=== PATIENT | female | born 1950 | race Hispanic/Latino ===

== ENCOUNTER 2017-01-30 10:09 | Inpatient (IN) | payer MEDICARE, OTHER ==
[2017-01-30 10:14] VITALS: BMI 38.0
--- NOTE | 2017-01-30 10:45 | ED PDOC ---
Arrival/HPI - History of Present Illness Symptom Course: Unchanged Activities at Onset: Light <Tobi Severino - Last Filed: 01/30/17 16:06> - General Historian: Patient - History of Present Illness Time/Duration: 24 hours Context: Home <Charlie Rinaldi - Last Filed: 01/30/17 16:46> - General Chief Complaint: Abnormal Labs - History of Present Illness Narrative History of Present Illness (Text): 01/30/17 10:42 66yo F PMH AFib on Coumadin, DM2, Hypertension, Hypercholesterolemia, PVD and hx of cellulitis presents to emergency department after PMD visit when she was told that her INR level was abnormal. Pt states that she was told her level was 8. pt states she smoked last week for the first time in awhile, and has been feeling short of breath since. Pt denies recent Coumadin dosage changes, bleeding, hematuria, hematochezia, chest pain, fevers, n/v/d. (Charlie Rinaldi) Past Medical History - Provider Review Nursing Documentation Reviewed: Yes - Infectious Disease Hx of Infectious Diseases: None - Tetanus Immunization Tetanus Immunization: Unknown - Cardiac Hx Cardiac Disorders: Yes Hx Atrial Fibrillation: Yes Hx Hyperlipemia: Yes Hx Hypertension: Yes Other/Comment: stents placed in heart, 2 - Pulmonary Hx Respiratory Disorders: No - Neurological HX Cerebrovascular Accident: Yes ((Residual L-sided weakness)) - HEENT Hx HEENT Disorder: No - Renal Hx Renal Disorder: No - Endocrine/Metabolic Hx Endocrine Disorders: Yes Hx Diabetes Mellitus Type 2: Yes - Hematological/Oncological Hx Blood Disorders: Yes Hx Anemia: Yes Hx Blood Transfusions: No - Integumentary Hx Dermatological Disorder: No - Musculoskeletal/Rheumatological Hx Arthritis: Yes - Gastrointestinal Hx Gastrointestinal Disorders: Yes Other/Comment: Increased Gas problems in abd since Stroke last year - Genitourinary/Gynecological Hx Genitourinary Disorders: No - Psychiatric Hx Psychophysiologic Disorder: No Hx Substance Use: No - Surgical History Hx Cardiac Catheterization: Yes Hx Coronary Stent: Yes (x2) Other/Comment: right leg r/t cellulitis 2015 - Anesthesia Hx Anesthesia: Yes Hx Anesthesia Reactions: No - Suicidal Assessment Feels Threatened In Home Enviroment: No <Charlie Rinaldi - Last Filed: 01/30/17 16:46> Family/Social History - Physician Review Nursing Documentation Reviewed: Yes Family/Social History: No Known Family HX Smoking Status: Former Smoker Hx Alcohol Use: No Hx Substance Use: No <Charlie Rinaldi - Last Filed: 01/30/17 16:46> Allergies/Home Meds <LeandrasilviaTobi - Last Filed: 01/30/17 16:06> <Charlie Rinaldi - Last Filed: 01/30/17 16:46> Allergies/Adverse Reactions: Allergies codeine Allergy (Verified 01/30/17 14:31) SHORTNESS OF BREATH Penicillins Allergy (Verified 01/30/17 14:31) ANAPHYLAXIS clopidogrel Adverse Reaction (Verified 01/30/17 14:31) SHORTNESS OF BREATH peaches Allergy (Severe, Uncoded 01/30/17 14:31) REDNESS nectarines Allergy (Mild, Uncoded 01/30/17 14:31) SHORTNESS OF BREATH Home Medications: Home Meds Medication Instructions Recorded Confirmed Atorvastatin [Lipitor] 40 mg PO QOTHERDAY 06/15/15 01/30/17 GlipiZIDE [Glucotrol] 10 mg PO DAILY 06/15/15 01/30/17 Valsartan [Diovan] 160 mg PO DAILY 06/15/15 01/30/17 Warfarin [Coumadin] 7.5 mg PO DAILY 06/15/15 01/30/17 amLODIPine [Norvasc] 10 mg PO DAILY 06/15/15 01/30/17 Cholecalciferol [Vitamin D 1000 IU] 5,000 iu PO QWK 01/30/17 01/30/17 Insulin Aspart Prot/Insuln Asp 8 units SC TID 01/30/17 01/30/17 [Novolog Mix 70-30 Vial] Meclizine [Meclizine*] 25 mg PO TID 01/30/17 01/30/17 Metoprolol Tartrate [Lopressor] 50 mg PO TID 01/30/17 01/30/17 cloNIDine [Catapres] 0.3 mg PO TID 01/30/17 01/30/17 Review of Systems - Physician Review All systems were reviewed & negative as marked: Yes - Review of Systems Constitutional: absent: Fatigue Respiratory: absent: SOB, Cough Cardiovascular: absent: Chest Pain, Palpitations Gastrointestinal: absent: Hematochezia, Hematemesis Genitourinary Female: absent: Hematuria <Charlie Rinaldi - Last Filed: 01/30/17 16:46> Physical Exam Temperature: Afebrile Appearance: Positive for: Well-Appearing Pain Distress: None Mental Status: Positive for: Alert and Oriented X 3 - Systems Exam Head: Present: Atraumatic, Normocephalic Pupils: Present: PERRL Extroacular Muscles: Present: EOMI Mouth: Present: Moist Mucous Membranes Neck: Present: Normal Range of Motion Respiratory/Chest: Present: Clear to Auscultation, Good Air Exchange. No: Respiratory Distress, Accessory Muscle Use, Wheezes Cardiovascular: Present: Regular Rate and Rhythm, Normal S1, S2 Abdomen: Present: Normal Bowel Sounds. No: Tenderness, Distention Back: Present: Normal Inspection. No: CVA Tenderness Upper Extremity: Present: Normal Inspection Lower Extremity: Present: Normal Inspection, Swelling (chronic, pt wearing compression stockings). No: Edema, CALF TENDERNESS Neurological: Present: CN II-XII Intact, Speech Normal Skin: Present: Warm, Dry Psychiatric: Present: Alert, Oriented x 3 <Charlie Rinaldi - Last Filed: 01/30/17 16:46> Vital Signs Temp Pulse Pulse Resp BP Pulse Ox 01/30/17 16:21 60 16 207/76 H 97 01/30/17 15:31 196/64 H 01/30/17 15:25 60 16 196/64 H 96 01/30/17 15:00 98.1 F 60 68 16 223/72 H 97 01/30/17 12:30 60 16 177/63 H 97 01/30/17 10: 98.1 F 62 17 168/74 H 96 Medical Decision Making <Tobi Severino - Last Filed: 01/30/17 16:06> Reassessment Condition: Re-examined, Unchanged - Lab Interpretations I have reviewed the lab results: Yes <Charlie Rinaldi - Last Filed: 01/30/17 16:46> ED Course and Treatment: 01/30/17 13:48 Patient seen and examined with resident. Came up with treatment and disposition plan with resident. (Tobi Severino) 01/30/17 10:55 Impression: 66yo F presenting for INR check Plan: - Reassess and disposition - Labs - INR - CXR Progress Notes: 01/30/17 11:13 Dr. Hall was contacted who stated that the patient's INR was 9, and recommended we give vitamin K. On Coumadin for Afib and hx CVA. Awaiting results of INR, and will start therapy. 01/30/17 11:51 INR 7.7; vitamin K 5mg ordered Chest PA and lateral Creator : Lul Palemr MD FINDINGS: LUNGS: Minimal infiltrate at left lung base PLEURA: Small bilateral pleural effusions. CARDIOVASCULAR: The heart is normal in size. Mild vascular congestion OSSEOUS STRUCTURES: No significant abnormalities. VISUALIZED UPPER ABDOMEN: Normal. OTHER FINDINGS: None. IMPRESSION: Minimal infiltrate at left lung base. Small bilateral pleural effusions Nitro and Lisinopril given 01/30/17 13:28 Dr. Padilla was contacted regarding admitting pt. Pt later refused admission to Dr. Padilla. Attempt to reach Dr. Laws was made; will call back 01/30/17 13:44 Dr. Laws was contacted and accepts patient onto her service for w/u of pulm infiltrate/edema and supra-therapeutic INR (Charlie Rinaldi) - Lab Interpretations Lab Results: 01/30/17 10:55 01/30/17 10:55 Lab Results 01/30/17 10:55: Sodium 144, Potassium 4.6, Chloride 114 H, Carbon Dioxide 17 L, Anion Gap 18, BUN 26 H, Creatinine 1.1, Est GFR ( Amer) > 60, Est GFR ( Non-Af Amer) 50, Random Glucose 169 H, Calcium 9.0, Total Bilirubin 0.7, AST 24 , ALT 23, Alkaline Phosphatase 89, NT-Pro-B Natriuret Pep 3960 H, Total Protein 6.4, Albumin 3.4, Globulin 3.0, Albumin/Globulin Ratio 1.1 01/30/17 10:55: WBC 8.4 D, RBC 3.30 L, Hgb 8.5 L, Hct 26.3 L, MCV 79.7 L, MCH 25.8, MCHC 32.3, RDW 15.9 H, Plt Count 231, MPV 8.5, Gran % 78.3 H, Lymph % ( Auto) 10.6 L, [place] % (Auto) 6.1 H, Eos % (Auto) 3.6, Baso % (Auto) 1.4, Gran # 6.58 H, Lymph # 0.9 L, [place] # 0.5, Eos # 0.3, Baso # 0.12 01/30/17 10:55: PT 83.5 H*, INR 7.73 H* - RAD Interpretation Radiology Orders: 01/30/17 10:52 CHEST TWO VIEWS (PA/LAT) [RAD] Stat - Medication Orders Current Medication Orders: Discontinued Medications Clonidine HCl (Catapres) 0.3 mg PO STAT STA Stop: 01/30/17 16:25 Furosemide (Lasix) 40 mg IVP STAT STA Stop: 01/30/17 13:46 Last Admin: 01/30/17 15:31 Dose: 40 mg MAR Blood Pressure Document 01/30/17 15:31 (Rec: 01/30/17 15:31 [id number]) Blood Pressure Blood Pressure (100/60-150/90) 196/64 IVP Administration Document 01/30/17 15:31 (Rec: 01/30/17 15:31 [id number]) Charges for Administration # of IVP Administrations 1 Ceftriaxone Sodium (Rocephin 1 Gram Ivpb) 1 gm in 100 mls @ 200 mls/hr IV STAT STA PRN Reason: Protocol Stop: 01/30/17 14:10 Last Admin: 01/30/17 15:30 Dose: 200 mls/hr eMAR Start Stop Document 01/30/17 15:30 (Rec: 01/30/17 15:31 [id number]) Intravenous Solution Start Date 01/30/17 Start Time 15:31 Azithromycin (Zithromax 500mg In Ns) 500 mg in 250 mls @ 166.667 mls/hr IV STAT STA PRN Reason: Protocol Stop: 01/30/17 15:10 Lisinopril (Zestril) 5 mg PO STAT STA Stop: 01/30/17 12:09 Last Admin: 01/30/17 12:40 Dose: 5 mg Nitroglycerin (Nitrostat Sl Tab) 0.3 mg SL Q5M PEYMAN Stop: 01/30/17 12:26 Last Admin: 01/30/17 12:40 Dose: Not Given Non-Admin Reason: Patient Refused Nitroglycerin (Nitro-Bid 2% Oint) 1 ea TOP STAT STA Stop: 01/30/17 14:54 Last Admin: 01/30/17 15:31 Dose: 1 ea Phytonadione (Vitamin K Tab) 5 mg PO ONCE ONE Stop: 01/30/17 11:47 Last Admin: 01/30/17 12:08 Dose: 5 mg Pneumococcal Polyvalent Vaccine (Pneumovax 23 Vaccine) 0.5 ml IM .ONCE ONE Stop: 01/30/17 15:26 - Scribe Statement The provider has reviewed the documentation as recorded by the Scribe <Tobi Severino - Last Filed: 01/30/17 16:06> <Charlie Rinaldi - Last Filed: 01/30/17 16:46> - Scribe Statement Eileen Isbell Provider Scribe Attestation: All medical record entries made by the Scribe were at my direction and personally dictated by me. I have reviewed the chart and agree that the record accurately reflects my personal performance of the history, physical exam, medical decision making, and the department course for this patient. I have also personally directed, reviewed, and agree with the discharge instructions and disposition. (Tobi Severino) Disposition/Present on Arrival <Tobi Severino - Last Filed: 01/30/17 16:06> - Present on Arrival Any Indicators Present on Arrival: No History of DVT/PE: Yes History of Uncontrolled Diabetes: Yes Urinary Catheter: No History of Decub. Ulcer: No History Surgical Site Infection Following: None - Disposition Have Diagnosis and Disposition been Completed?: Yes Disposition Time: 13:34 Patient Plan: Admission <Charlie Rinaldi - Last Filed: 01/30/17 16:46> - Disposition Diagnosis: Elevated INR, Pulmonary edema, Pneumonia Disposition: HOSPITALIZED Patient Problems: Current Active Problems Problem Status Onset Elevated INR Acute Pneumonia Acute Pulmonary edema Acute Condition: FAIR
[2017-01-30 11:08] LABS: BASO # 0.12 K/mm3 (0.0-2.0); BASO % 1.4 % (0.0-3.0); EOS # 0.3 (0.0-0.7); EOS % 3.6 % (1.5-5.0); GRAN # 6.58 (1.4-6.5); GRAN % 78.3 % (50.0-68.0); HEMATOCRIT 26.3 % (36.0-48.0); LYMPH # 0.9 (1.2-3.4); LYMPH % 10.6 % (22.0-35.0); MEAN CELL VOLUME 79.7 fl (80.0-105.0); MEAN CORPUSCULAR HEMOGLOBIN 25.8 pg (25.0-35.0); MEAN CORPUSCULAR HGB CONC 32.3 g/dl (31.0-37.0); MEAN PLATELET VOLUME 8.5 fl (7.0-11.0); MONO # 0.5 (0.1-0.6); MONO % 6.1 % (1.0-6.0); RED CELL DISTRIBUTION WIDTH 15.9 % (11.5-14.5); WHITE BLOOD COUNT 8.4 10^3/ul (4.5-11.0)
[2017-01-30 11:18] LABS: ALB/GLOB RATIO 1.1 (1.1-1.8); ALKALINE PHOSPHATASE 89 U/L (38-126); ALT/SGPT 23 U/L (7-56); AST/SGOT 24 U/L (14-36); BILIRUBIN,TOTAL 0.7 mg/dL (0.2-1.3); BLOOD UREA NITROGEN 26 mg/dL (7-21); CARBON DIOXIDE 17 mmol/L (21-33); CHLORIDE 114 mmol/L (98-107); GFR AFRICAN-AMERICAN > 60; GLUCOSE,RANDOM 169 mg/dL (70-110); POTASSIUM 4.6 mmol/L (3.6-5.0); SODIUM 144 mmol/L (132-148); TOTAL PROTEIN 6.4 g/dL (5.8-8.3)
[2017-01-30 11:32] LABS: INR 7.73 (0.93-1.08)
--- NOTE | 2017-01-30 12:49 | RAD ---
HISTORY: sob COMPARISON: 06/15/2015 TECHNIQUE: Chest PA and lateral FINDINGS: LUNGS: Minimal infiltrate at left lung base PLEURA: Small bilateral pleural effusions. CARDIOVASCULAR: The heart is normal in size. Mild vascular congestion OSSEOUS STRUCTURES: No significant abnormalities. VISUALIZED UPPER ABDOMEN: Normal. OTHER FINDINGS: None. IMPRESSION: Minimal infiltrate at left lung base. Small bilateral pleural effusions
[2017-01-30] MEDS ORDERED: Azithromycin 500MG/NS 250ml 500 MG/250 ML BAG IV STA (13:41)
[2017-01-30] MEDS ORDERED: cefTRIAXone 1 gm 1 GM/100 ML BAG IV STA (13:41)
[2017-01-30] MEDS ORDERED: Nitroglycerin 2% Ointment Foilpak UD TOP STA (14:53)
[2017-01-30] MEDS ORDERED: Pneumococcal 23-Valent Vaccine IM ONE (15:25)
[2017-01-30] MEDS: Insulin Lispro (humaLOG) MEDIUM Coverage SC SCH (21:44)
--- NOTE | 2017-01-30 22:56 | HP ---
HISTORY OF PRESENT ILLNESS: The patient is a 66-year-old, who was referred by our primary care doctor because of her abnormal LFTs. Her INR was found to be 9, so she was referred for further evaluation. The patient states that she is having increasing shortness of breath for the last few days. Denies any bleeding. No hematuria, no rectal bleeding. No chest pain. No cough and no congestion. No fever and no chills. No abdominal pain. PAST MEDICAL HISTORY: Significant for: 1. Hypertension. 2. Insulin dependent diabetes. 3. Chronic atria fibrillation, on Coumadin. 4. History of recurrent UTI. 5. History of gout. 6. History of diabetic neuropathy. 7. History of chronic venous stasis. The patient was admitted almost a year and a half ago for bilateral leg cellulitis. 8. 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 9. History of left popliteal DVT. PAST SURGICAL HISTORY: Significant for left knee surgery and left shoulder surgery. HOME MEDICATIONS: She is on clonidine 0.3 three times a day, Norvasc 10 mg daily, Lopressor 50 mg twice a day, Imdur 30 mg daily, Coumadin 7.5 mg daily, metformin 1000 twice a day, Humulin 70/30, 5 units three times a day, Demadex 10 mg daily, Lipitor 40 mg daily, Meclizine 25 three times a day, and Valsartan 160 mg daily. ALLERGIES: SHE IS ALLERGIC TO CODEINE, PENICILLIN, PLAVIX, PEACHES AND NECTARINES. SOCIAL HISTORY: Heavy smoker in the past. Socially drinks. REVIEW OF SYSTEMS: Significant for mild shortness of breath. Otherwise, there is no history of dizziness. No runny stuffy nose. No chest pain, but does have shortness of breath. No cough, no congestion, no hemoptysis, no hematemesis. PHYSICAL EXAMINATION: GENERAL: She is awake and alert and communicative. VITAL SIGNS: She is afebrile, pulse 62, respiration 16, and blood pressure 170/65. LUNGS: Bilateral fair airflow, decrease at bases. Few soft crackle. HEART: S1 and S2 audible, irregular, rate controlled. ABDOMEN: Soft, obese, and nontender. No rebound and no guarding. NEUROLOGIC: The patient is awake and alert. Communicative. LABORATORY DATA: WBC is 8.4, hemoglobin 8.5, hematocrit 26.3, platelet 231. PT 83.5, INR 7.73. Chemistry: Sodium 144, potassium 4.6, chloride 114, CO2 217, BUN 26, creatinine 1.1, blood sugar of 169, and BNP is 3960. The patient has x-ray of chest done that shows minimal infiltrate in the left lung base. Small bilateral pleural effusion. ASSESSMENT: 1. Congestive heart failure exacerbation acute and chronic, systolic. 2. Left lower lobe infiltrate. 3. Supratherapeutic PT/INR. 4. Chronic atrial fibrillation. 5. Insulin dependent diabetes. 6. Hypertension. 7. Hyperlipidemia. 8. Coronary artery disease. PLAN: We will start the patient on diuretics. Monitor blood sugar. She was given vitamin K 5 mg in the ER. We will put her on fall precaution. Monitor her blood sugar and she had echocardiogram done back in 2014 that showed normal left ventricle and normal wall thickness. Left atrium is fairly dilated. Mitral regurgitation is eccentrically directed and there is moderate pulmonary hypertension. We will follow up her NM/INR and electrolyte in a.m. Jason Laws MD
[2017-01-31 06:22] LABS: BASO # 0.04 K/mm3 (0.0-2.0); BASO % 0.6 % (0.0-3.0); EOS # 0.3 (0.0-0.7); EOS % 4.1 % (1.5-5.0); GRAN # 4.84 (1.4-6.5); GRAN % 73.6 % (50.0-68.0); HEMATOCRIT 27.7 % (36.0-48.0); LYMPH # 0.9 (1.2-3.4); LYMPH % 13.8 % (22.0-35.0); MEAN CELL VOLUME 79.6 fl (80.0-105.0); MEAN CORPUSCULAR HEMOGLOBIN 25.3 pg (25.0-35.0); MEAN CORPUSCULAR HGB CONC 31.8 g/dl (31.0-37.0); MEAN PLATELET VOLUME 8.6 fl (7.0-11.0); MONO # 0.5 (0.1-0.6); MONO % 7.9 % (1.0-6.0); RED CELL DISTRIBUTION WIDTH 16.1 % (11.5-14.5); WHITE BLOOD COUNT 6.6 10^3/ul (4.5-11.0)
[2017-01-31 06:31] LABS: INR 2.79 (0.93-1.08)
[2017-01-31 06:47] VITALS: O2SAT 97
[2017-01-31 06:57] LABS: ALB/GLOB RATIO 1.1 (1.1-1.8); ALKALINE PHOSPHATASE 101 U/L (38-126); ALT/SGPT 23 U/L (7-56); AST/SGOT 24 U/L (14-36); BILIRUBIN,TOTAL 0.9 mg/dL (0.2-1.3); BLOOD UREA NITROGEN 21 mg/dL (7-21); CALCIUM 9.1 mg/dL (8.4-10.5); CARBON DIOXIDE 20 mmol/L (21-33); CHLORIDE 113 mmol/L (98-107); CHOLESTEROL 136 mg/dL (130-200); GFR AFRICAN-AMERICAN > 60; GLUCOSE,RANDOM 161 mg/dL (70-110); SODIUM 145 mmol/L (132-148); TOTAL PROTEIN 6.7 g/dL (5.8-8.3)
[2017-01-31 07:09] LABS: TROPONIN I 0.02 ng/mL
[2017-01-31 07:29] LABS: FREE T4 1.66 ng/dL (0.78-2.19)
[2017-01-31 07:43] LABS: THYROID STIMULATING HORMONE 3.63 mIU/mL (0.46-4.68)
[2017-01-31] MEDS ORDERED: Azithromycin 500MG/NS 250ml 500 MG/250 ML BAG IVPB SCH (10:00)
[2017-01-31] MEDS ORDERED: cefTRIAXone 1 gm 1 GM/100 ML BAG IVPB SCH (10:00)
[2017-01-31] MEDS: Insulin Lispro (humaLOG) MEDIUM Coverage SC SCH ×3 (10:09→18:07)
--- NOTE | 2017-01-31 17:17 | DS ---
SUBJECTIVE: The patient is 66-year-old, seen and examined. She states she feels lot better, shortness of breath has almost gone. No nausea or vomiting. No diarrhea. PHYSICAL EXAMINATION: VITAL SIGNS: She is afebrile. Pulse 77, respirations 18 and blood pressure 174/59. LUNGS: Bilateral fair airflow. No rhonchi or crackle. HEART: S1 and S2 audible. ABDOMEN: Soft, obese, and nontender. No rebound. No guarding. NEUROLOGIC: The patient is awake and alert, communicate and moves all extremities. SKIN: Bilateral chronic stasis dermatitis with pigmentation. No erythema. LABORATORY EXAM: WBC is 6.6, hemoglobin 8.8, hematocrit 27.7 and platelet 223. PT 30.1. INR 2.79. Chemistry: Sodium 145, potassium 4.0, chloride 113, CO2 of 20, BUN 31, creatinine 1.0, and blood sugar of 189. ASSESSMENT: 1. Congestive heart failure, seems to be improved. 2. Chronic atrial fibrillation. 3. Morbid obesity. 4. History of gout. 5. History of diabetic neuropathy. 6. Non-insulin dependent diabetes. PLAN: Awaiting Dr. Dowell's input. The patient seems to be clinically stable. She can be discharged home today later on after seen by quality control. At this point, the patient is afebrile, no white count. CT scan of the chest is pending to further appreciate if she has infiltrate or not. If her CT scan is negative and cleared by cardiology, she will be discharged home later on today. Jason Laws MD
[2017-01-31 19:09] VITALS: BP 163/56; PULSE 54; RESP 19; TEMP 98.6
--- NOTE | 2017-01-31 23:08 | CARD ---
APPROVED REPORT EKG Measurement Heart [id number] <Conclusion> Normal sinus rhythm Right axis deviation Possible Anterior infarct, age undetermined Abnormal ECG
== END 2017-01-31 19:14 | disposition home or self-care (01) | DRG 293 ==
LOC: ED 10:09 → ERH 13:43 → 2RNO 18:59
PROVIDERS: ADMIT Internal Medicine; ATTEND Internal Medicine
DX: I11.0 Hypertensive heart disease with heart failure (principal); I50.23 Acute on chronic systolic (congestive) heart failure; E11.40 Type 2 diabetes mellitus with diabetic neuropathy, unspecified; E11.51 Type 2 diabetes mellitus with diabetic peripheral angiopathy without gangrene; I27.20 Pulmonary hypertension, unspecified; E66.01 Morbid (severe) obesity due to excess calories; I48.2 Chronic atrial fibrillation; I25.10 Atherosclerotic heart disease of native coronary artery without angina pectoris; I34.0 Nonrheumatic mitral (valve) insufficiency; M10.9 Gout, unspecified; I87.2 Venous insufficiency (chronic) (peripheral); I87.8 Other specified disorders of veins; E78.5 Hyperlipidemia, unspecified; Z88.0 Allergy status to penicillin; Z87.891 Personal history of nicotine dependence; Z79.01 Long term (current) use of anticoagulants; Z79.4 Long term (current) use of insulin; Z68.36 Body mass index [BMI] 36.0-36.9, adult; Z86.73 Personal history of transient ischemic attack (TIA), and cerebral infarction without residual deficits; Z87.440 Personal history of urinary (tract) infections; Z86.718 Personal history of other venous thrombosis and embolism

== ENCOUNTER 2017-05-05 13:58 | Inpatient (IN) | payer MEDICARE, OTHER ==
[2017-05-05 15:36] VITALS: BMI 36.8
[2017-05-05 16:22] LABS: URINE BILIRUBIN NEGATIVE (NEGATIVE); URINE BLOOD TRACE-INTACT (NEGATIVE); URINE GLUCOSE (UA) 100 mg/dL (NEGATIVE); URINE LEUKOCYTE ESTERASE NEGATIVE Leu/uL (NEGATIVE); URINE NITRATE NEGATIVE (NEGATIVE); URINE PROTEIN >=300 mg/dL (<30 mg/dL); URINE UROBILINOGEN 0.2 E.U./dL (<1 E.U./dL)
[2017-05-05 16:23] LABS: URINE APPEARANCE SL CLOUDY (CLEAR); URINE COLOR YELLOW (YELLOW)
[2017-05-05 16:28] LABS: URINE BACTERIA TRACE (NEG); URINE FINE GRANULAR CAST 0 - 2 /hpf (0-2); URINE HYALINE CAST 0 - 2 /hpf; URINE RBC NEGATIVE /hpf (0-2); URINE WBC 0 - 2 /hpf (0-6)
--- NOTE | 2017-05-05 16:46 | RAD ---
HISTORY: Shortness of breath. COMPARISON: 01/30/2017 FINDINGS: LUNGS: Left lower lobe infiltrate. This represents a chronic or recurrent finding PLEURA: Persistent or recurrent left pleural effusion. CARDIOVASCULAR: No radiographic findings to suggest acute or significant cardiovascular disease. OSSEOUS STRUCTURES: No significant abnormalities. VISUALIZED UPPER ABDOMEN: Normal. OTHER FINDINGS: None. IMPRESSION: Left lower lobe infiltrate, associated left pleural effusion. Similar findings identified on the prior study.
[2017-05-05 17:00] LABS: BASO # 0.07 K/mm3 (0.0-2.0); BASO % 0.8 % (0.0-3.0); EOS # 0.1 (0.0-0.7); EOS % 1.6 % (1.5-5.0); GRAN # 6.86 (1.4-6.5); GRAN % 77.9 % (50.0-68.0); HEMOGLOBIN 10.5 g/dL (12.0-16.0); LYMPH # 1.1 (1.2-3.4); MEAN CELL VOLUME 72.5 fl (80.0-105.0); MEAN CORPUSCULAR HEMOGLOBIN 21.7 pg (25.0-35.0); MEAN CORPUSCULAR HGB CONC 29.9 g/dl (31.0-37.0); MEAN PLATELET VOLUME 8.7 fl (7.0-11.0); MONO # 0.6 (0.1-0.6); MONO % 6.7 % (1.0-6.0); RBC 4.84 10^6/uL (3.5-6.1); RED CELL DISTRIBUTION WIDTH 17.8 % (11.5-14.5); WHITE BLOOD COUNT 8.8 10^3/ul (4.5-11.0)
[2017-05-05 17:17] LABS: ALB/GLOB RATIO 1.1 (1.1-1.8); ALBUMIN 4.2 g/dL (3.0-4.8); CALCIUM 9.6 mg/dL (8.4-10.5); MAGNESIUM 1.5 mg/dL (1.7-2.2)
[2017-05-05 17:21] LABS: TROPONIN I 0.01 ng/mL
[2017-05-05 17:29] LABS: PROTHROMBIN TIME 47.8 SECONDS (9.4-12.5)
[2017-05-05 17:30] LABS: PARTIAL THROMBOPLASTIN TIME 49.7 Seconds (25.1-36.5)
[2017-05-05 17:36] LABS: INR 4.07 (0.93-1.08)
[2017-05-05] MEDS ORDERED: Iohexol 350 MG/100 ML VIAL ONE (20:06)
--- NOTE | 2017-05-05 20:21 | CARD ---
APPROVED REPORT EKG Measurement Heart [id number] <Conclusion> Atrial fibrillation Left axis deviation Low voltage QRS Nonspecific ST and T wave abnormality, probably digitalis effect Abnormal ECG
--- NOTE | 2017-05-05 20:32 | ED PDOC ---
Arrival/HPI - General Chief Complaint: Shortness Of Breath Time Seen by Provider: 05/05/17 15:51 Historian: Patient - History of Present Illness Narrative History of Present Illness (Text): 05/05/17 16:00 Corina Isbell is a 66 year old female, whose past medical history includes A fib on coumadin, who presents to the emergency department complaining of shortness of breath increasing over the past week. Patient states that shortness of breath increases with talking or any exertion. Patient is compliant with medication. Patient denies any cough, chest pain, recent travel, or any other complaints at this time. Time/Duration: < week Symptom Onset: Gradual Symptom Course: Worsening Activities at Onset: Light Context: Home Past Medical History - Provider Review Nursing Documentation Reviewed: Yes - Infectious Disease Hx of Infectious Diseases: None - Tetanus Immunization Tetanus Immunization: Unknown - Cardiac Hx Cardiac Disorders: Yes Hx Atrial Fibrillation: Yes Hx Hypertension: Yes Other/Comment: stents placed in heart, 2 - Pulmonary Hx Respiratory Disorders: No - Neurological HX Cerebrovascular Accident: Yes ((Residual L-sided weakness)) - HEENT Hx HEENT Disorder: No - Renal Hx Renal Disorder: No - Endocrine/Metabolic Hx Endocrine Disorders: Yes Hx Diabetes Mellitus Type 2: Yes - Hematological/Oncological Hx Blood Disorders: Yes Hx Anemia: Yes Hx Blood Transfusions: No - Integumentary Hx Dermatological Disorder: No - Musculoskeletal/Rheumatological Hx Arthritis: Yes - Gastrointestinal Hx Gastrointestinal Disorders: Yes Other/Comment: Increased Gas problems in abd since Stroke last year - Genitourinary/Gynecological Hx Genitourinary Disorders: No - Psychiatric Hx Psychophysiologic Disorder: No Hx Substance Use: No - Surgical History Hx Cardiac Catheterization: Yes Hx Coronary Stent: Yes (x2) Other/Comment: right leg r/t cellulitis 2015 - Anesthesia Hx Anesthesia: Yes Hx Anesthesia Reactions: No - Suicidal Assessment Feels Threatened In Home Enviroment: No Family/Social History - Physician Review Nursing Documentation Reviewed: Yes Family/Social History: No Known Family HX Smoking Status: Former Smoker Hx Alcohol Use: No Hx Substance Use: No Allergies/Home Meds Allergies/Adverse Reactions: Allergies codeine Allergy (Verified 01/30/17 14:31) SHORTNESS OF BREATH Penicillins Allergy (Verified 01/30/17 14:31) ANAPHYLAXIS clopidogrel Adverse Reaction (Verified 01/30/17 14:31) SHORTNESS OF BREATH peaches Allergy (Severe, Uncoded 01/30/17 14:31) REDNESS nectarines Allergy (Mild, Uncoded 01/30/17 14:31) SHORTNESS OF BREATH Home Medications: Home Meds Medication Instructions Recorded Confirmed Atorvastatin [Lipitor] 40 mg PO QOTHERDAY 06/15/15 05/05/17 GlipiZIDE [Glucotrol] 10 mg PO DAILY 06/15/15 05/05/17 Valsartan [Diovan] 160 mg PO DAILY 06/15/15 05/05/17 Warfarin [Coumadin] 7.5 mg PO DAILY 06/15/15 05/05/17 amLODIPine [Norvasc] 10 mg PO DAILY 06/15/15 05/05/17 Cholecalciferol [Vitamin D 1000 IU] 5,000 iu PO QWK 01/30/17 05/05/17 Meclizine [Meclizine*] 25 mg PO TID 01/30/17 05/05/17 Metoprolol Tartrate [Lopressor] 50 mg PO TID 01/30/17 05/05/17 cloNIDine [Catapres] 0.3 mg PO TID 01/30/17 05/05/17 Insulin Human (NPH)/Regular 8 units SC TID 05/05/17 05/05/17 [Novolin 70/30 (70/30 units/ml) 10 ml] Review of Systems - Physician Review All systems were reviewed & negative as marked: Yes - Review of Systems Constitutional: absent: Fevers, Night Sweats Eyes: absent: Vision Changes ENT: absent: Hearing Changes Respiratory: SOB Cardiovascular: absent: Chest Pain Gastrointestinal: absent: Abdominal Pain Genitourinary Female: absent: Dysuria, Frequency Musculoskeletal: absent: Arthralgias Skin: absent: Rash, Pruritis Neurological: absent: Headache Endocrine: absent: Diaphoresis Hemo/Lymphatic: absent: Adenopathy Psychiatric: absent: Anxiety, Depression Physical Exam Vital Signs Reviewed: Yes Vital Signs Temp Pulse Resp BP Pulse Ox 05/05/17 19:06 98.1 F 80 17 169/81 H 99 05/05/17 18:00 86 18 176/80 H 95 05/05/17 17:59 176/80 H 05/05/17 16:00 18 05/05/17 15:42 97.7 F 93 H 18 164/85 H 93 L Temperature: Afebrile Blood Pressure: Hypertensive Pulse: Tachycardic Respiratory Rate: Normal Appearance: Positive for: Other (dyspneic while sleeping) Mental Status: Positive for: Alert and Oriented X 3 - Systems Exam Head: Present: Atraumatic, Normocephalic Pupils: Present: PERRL Extroacular Muscles: Present: EOMI Conjunctiva: Present: Normal Mouth: Present: Moist Mucous Membranes Neck: Present: Normal Range of Motion Respiratory/Chest: Present: Decreased Breath Sounds (diminished breath sounds bilaterally with rales), Rales, Other (Dyspneic while speaking) Cardiovascular: Present: Irregular Rhythm (Irregularly irregular). No: Regular Rate and Rhythm Abdomen: Present: Normal Bowel Sounds. No: Tenderness, Distention, Peritoneal Signs Back: Present: Normal Inspection Upper Extremity: Present: Normal Inspection. No: Cyanosis, Edema Lower Extremity: Present: Edema (2+ pitting edema) Neurological: Present: GCS=15, CN II-XII Intact, Speech Normal Skin: Present: Warm, Dry, Normal Color. No: Rashes Psychiatric: Present: Alert, Oriented x 3, Normal Insight, Normal Concentration Medical Decision Making ED Course and Treatment: 05/05/17 16:00 Impression: 66 year old female complaining of shortness of breath increasing over the past week. Plan: -- Angio Chest CT -- Blood Culture -- Labs -- Reassess and disposition Prior Visits: Notes and results from previous visits were reviewed. Patient was last seen in the emergency department on 01/30/17 for cellulitis. Patient was admitted to hospitalist care for further evaluation. Progress Notes: 05/05/17 Patient refuses to take Lasix here in Emergency department. Case discussed with admitting team, aware of elevated D-Dime. CTA ordered. INR = 4. - Lab Interpretations Lab Results: 05/05/17 16:45 05/05/17 16:45 Lab Results 05/05/17 16:45: PT 47.8 H, INR 4.07 H*, APTT 49.7 H, D-Dimer, Quantitative 1266 H 05/05/17 16:45: Sodium 145, Potassium 4.7, Chloride 110 H, Carbon Dioxide 22, Anion Gap 19, BUN 25 H, Creatinine 1.3 H, Est GFR ( Amer) 50, Est GFR ( Non-Af Amer) 41, Random Glucose 157 H, Calcium 9.6, Magnesium 1.5 L, Total Bilirubin 1.1, AST 35, ALT 20, Alkaline Phosphatase 108, Lactate Dehydrogenase 797 H, Total Creatine Kinase 57, Troponin I 0.01 D, NT-Pro-B Natriuret Pep 6670 H, Total Protein 7.9, Albumin 4.2, Globulin 3.7, Albumin/Globulin Ratio 1.1 05/05/17 16:45: WBC 8.8 D, RBC 4.84, Hgb 10.5 L, Hct 35.1 L, MCV 72.5 L D, MCH 21.7 L, MCHC 29.9 L, RDW 17.8 H, Plt Count 245, MPV 8.7, Gran % 77.9 H, Lymph % (Auto) 13.0 L, [place] % (Auto) 6.7 H, Eos % (Auto) 1.6, Baso % (Auto) 0.8, Gran # 6.86 H, Lymph # 1.1 L, [place] # 0.6, Eos # 0.1, Baso # 0.07 05/05/17 16:18: Urine Color Yellow, Urine Appearance Sl cloudy, Urine pH 6.0, Ur Specific [place] >= 1.030, Urine Protein >=300 H, Urine Glucose (UA) 100 H, Urine Ketones Negative, Urine Blood Trace-intact H, Urine Nitrate Negative, Urine Bilirubin Negative, Urine Urobilinogen 0.2, Ur Leukocyte Esterase Negative , Urine RBC Negative, Urine WBC 0 - 2, Ur Epithelial Cells 6 - 8, Urine Bacteria Trace, Hyaline Casts 0 - 2, Fine Granular Casts 0 - 2 I have reviewed the lab results: Yes - RAD Interpretation Radiology Orders: 05/05/17 15:52 CHEST PORTABLE [RAD] Stat - Medication Orders Current Medication Orders: Amlodipine Besylate (Norvasc) 10 mg PO DAILY [facility] Atorvastatin Calcium (Lipitor) 40 mg PO QOTHERDAY [facility] Clonidine HCl (Catapres) 0.3 mg PO TID [facility] Insulin Human Regular (Humulin R Med) 0 units SC ACHS [facility] PRN Reason: Protocol Isosorbide Mononitrate (Imdur Er) 30 mg PO 0600 [facility] Losartan Potassium (Cozaar) 100 mg PO DAILY [facility] Metoprolol Tartrate (Lopressor) 50 mg PO TID [facility] Discontinued Medications Furosemide (Lasix) 40 mg IVP STAT STA Stop: 05/05/17 17:27 Last Admin: 05/05/17 17:59 Dose: Not Given Non-Admin Reason: Patient Refused MAR Blood Pressure Document 05/05/17 17:59 HI (Rec: 05/05/17 17:59 HI [facility] [id number]) Blood Pressure Blood Pressure (100/60-150/90) 176/80 - Scribe Statement The provider has reviewed the documentation as recorded by the Scribe Linda Cervantes Provider Scribe Attestation: All medical record entries made by the Scribe were at my direction and personally dictated by me. I have reviewed the chart and agree that the record accurately reflects my personal performance of the history, physical exam, medical decision making, and the department course for this patient. I have also personally directed, reviewed, and agree with the discharge instructions and disposition. Disposition/Present on Arrival - Present on Arrival Any Indicators Present on Arrival: No History of DVT/PE: Yes History of Uncontrolled Diabetes: Yes Urinary Catheter: No History of Decub. Ulcer: No History Surgical Site Infection Following: None - Disposition Have Diagnosis and Disposition been Completed?: Yes Diagnosis: Atrial fibrillation, CHF exacerbation, Pleural effusion, Elevated d-dimer Disposition: HOSPITALIZED Disposition Time: 19:30 Patient Plan: Admission Condition: FAIR
[2017-05-05] MEDS: Magnesium Oxide 400 mg Tab UD PO SCH (23:30)
[2017-05-06] MEDS: Aztreonam 1 Gm in NS 100mL 100 ML IVPB SCH ×2 (01:20→05:59)
--- NOTE | 2017-05-06 02:35 | CP.PCM.HP ---
<Migue Rios - Last Filed: 05/06/17 05:09> History of Present Illness - History of Present Illness History of Present Illness: Mrs. Isbell is a 66 year old female with a past medical history significant for IDDM2, HTN, Atrial fibrillation on coumadin, abdominal hernia, previouse CVA ( 2013), HLD, and CAD who presents to the ED with SOB and DUQUE with ADL and talking for the past week. Patient reports that for the past week she has been experiencing DUQUE with her daily activities and talking. She endorses that at baseline she is able to walk around the grocery store and up and down three flights of stairs without becoming SOB. She reports that there was no inciting event to her knowledge. Patient notes that she does not experience these symptoms at rest. She denies any sick contacts, recent travel, recent trauma, recent surgery, fevers, chills, headache, changes in her vision, rhinorrhea, sore throat, dysphagia, neck pain/stiffness, chest pain, palpitations, syncope, calf pain, cough, sputum, hemoptysis, wheezing, abdominal pain, N/V, diarrhea, constipation, melena, hematochezia, burning/pain with urination, urinary frequency, skin changes, joint pain, or any numbness/tingling of any extremity. 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; lives alone in third story apartment with no elevator Allergies: Codeine, Penicillins, Clopidogrel, Peaches and Nectarines Home Medications: As per MAR Present on Admission - Present on Admission Any Indicators Present on Admission: No Review of Systems - Review of Systems Review of Systems: As stated in HPI, otherwise negative Past Patient History - Infectious Disease Hx of Infectious Diseases: None - Tetanus Immunizations Tetanus Immunization: Unknown - Past Social History Smoking Status: Former Smoker - CARDIAC Hx Cardiac Disorders: Yes Hx Atrial Fibrillation: Yes Hx Hypertension: Yes Other/Comment: stents placed in heart, 2 - PULMONARY Hx Respiratory Disorders: No - NEUROLOGICAL HX Cerebrovascular Accident: Yes ((Residual L-sided weakness)) - HEENT Hx HEENT Problems: No - RENAL Hx Chronic Kidney Disease: No - ENDOCRINE/METABOLIC Hx Endocrine Disorders: Yes Hx Diabetes Mellitus Type 2: Yes - HEMATOLOGICAL/ONCOLOGICAL Hx Blood Disorders: Yes Hx Anemia: Yes Hx Blood Transfusions: No - INTEGUMENTARY Hx Dermatological Problems: No - MUSCULOSKELETAL/RHEUMATOLOGICAL Hx Arthritis: Yes - GASTROINTESTINAL Hx Gastrointestinal Disorders: Yes Other/Comment: Increased Gas problems in abd since Stroke last year - GENITOURINARY/GYNECOLOGICAL Hx Genitourinary Disorders: No - PSYCHIATRIC Hx Psychophysiologic Disorder: No Hx Substance Use: No - SURGICAL HISTORY Hx Cardiac Catheterization: Yes Hx Coronary Stent: Yes (x2) Other/Comment: right leg r/t cellulitis 2015 - ANESTHESIA Hx Anesthesia: Yes Hx Anesthesia Reactions: No Meds Allergies/Adverse Reactions: Allergies Allergy/AdvReac Type Severity Reaction Status Date / Time codeine Allergy SHORTNESS Verified 01/30/17 14:31 OF BREATH Penicillins Allergy ANAPHYLAXIS Verified 01/30/17 14:31 clopidogrel AdvReac SHORTNESS Verified 01/30/17 14:31 OF BREATH peaches Allergy Severe REDNESS Uncoded 01/30/17 14:31 nectarines Allergy Mild SHORTNESS Uncoded 01/30/17 14:31 OF BREATH Physical Exam - Constitutional Appears: Non-toxic, No Acute Distress - Head Exam Head Exam: ATRAUMATIC, NORMAL INSPECTION, NORMOCEPHALIC - Eye Exam Eye Exam: EOMI, Normal appearance, PERRL. absent: Conjunctival injection, Nystagmus, Periorbital swelling, Periorbital tenderness, Scleral icterus Pupil Exam: NORMAL ACCOMODATION, PERRL. absent: Fixed, Irregular, Miosis, Mydriatic, Unequal - ENT Exam ENT Exam: Mucous Membranes Moist, Normal Exam, Normal External Ear Exam, Normal Oropharynx. absent: Mucous Membranes Dry - Neck Exam Neck exam: Positive for: Full Rom, Normal Inspection. Negative for: Lymphadenopathy, Meningismus, Tenderness, Thyromegaly - Respiratory Exam Respiratory Exam: Decreased Breath Sounds (LLL lung field), Rhonchi (LLL lung field), NORMAL BREATHING PATTERN. absent: Accessory Muscle Use, Chest Wall Tenderness, Clear to Auscultation Bilateral, Prolonged Expiratory Phase, Rales, Wheezes, Respiratory Distress, Stridor - Cardiovascular Exam Cardiovascular Exam: Irregular Rhythm, +S1, +S2. absent: Bradycardia, Tachycardia, Clicks, Diastolic murmur, Gallop, REGULAR RHYTHM, JVD, RRR, Rubs, + S4, Systolic Murmur - GI/Abdominal Exam GI & Abdominal Exam: Hernia (Ventral on right side of umbilicus), Normal Bowel Sounds, Soft. absent: Bruit, Diminished Bowel Sounds, Distended, Firm, Guarding , Hyperactive Bowel Sounds, Hypoactive Bowel Sounds, Mass, Organomegaly, Pulsatile Mass, Rebound, Rigid, Tenderness - Extremities Exam Extremities exam: Positive for: full ROM, normal capillary refill, pedal edema ( 1+ pitting edema to bilateral LE extending to mid calf), pedal pulses present. Negative for: calf tenderness, joint swelling, normal inspection, tenderness - Back Exam Back exam: FULL ROM, NORMAL INSPECTION. absent: CVA tenderness (L), CVA tenderness (R), muscle spasm, paraspinal tenderness, rash noted, tenderness, vertebral tenderness - Neurological Exam Neurological exam: Alert, CN II-XII Intact, Oriented x3 - Psychiatric Exam Psychiatric exam: Normal Affect, Normal Mood - Skin Skin Exam: Dry, Intact, Normal Color, Warm Results - Vital Signs Recent Vital Signs: Last Vital Signs Temp 98.1 F 05/05/17 19:06 Pulse 91 H 05/05/17 23:29 Resp 20 05/05/17 21:13 BP 201/75 H 05/05/17 23:29 Pulse Ox 100 05/05/17 21:08 - Labs Result Diagrams: 05/05/17 16:45 05/05/17 16:45 - EKG Data EKG shows normal: Sinus rhythm (Atrial Fibrillation) Rate: Normal Assessment & Plan - Assessment and Plan (Free Text) Assessment: 66 year old female with a past medical history significant for IDDM2, HTN, Atrial fibrillation on coumadin, abdominal hernia, previouse CVA (2013), HLD, and CAD who presents to the ED with SOB and DUQUE with ADL and talking for the past week. Patient was found to have a supratherapeutic INR as well as an elevated d-dimer in the ED. She was also noted have to LLL infiltrate/pleural effusion on chest x-ray and found to be in atrial fibrillation on EKG. Plan: 1. LLL Infiltrate/Pleural Effusion with associated DUQUE -Chest X-Ray showing LLL infiltrate with pleural effusion -Chest CT W/O Contrast and Echo pending -MACHELLE titers, procalcitonin, TSH, free T4, blood culture, and sputum culture pending -Daily CBC -Aztreonam IVPB Q8 -Lasix 40mg IVP Q12 -Oxygen via NC at 2 L/min -Strict I/O and daily weight measurements -Pulmonology and ID consulted -PT evaluation 2. Atrial Fibrillation -EKG showing atrial fibrillation at 88bpm -Found to have supratherapeutic INR -Holding home coumadin -Daily PT/INR and aPTT -Cardiology consulted 3. History of HTN -Continue home Norvasc, Clonidine, Losartan and Metoprolol 4. History of DM2 -SSI and Accuchecks ACHS -NPH 8u TID -Carbohydrate consistent diet 5. History of CAD -Continue home Isosorbide Mononitrate 6. History of HLD -Continue home Lipitor GI Prophylaxis: Protonix DVT Prophylaxis: SCD's Patient seen and case discussed in detail with attending, Dr. Stephie Horowitz. - Date & Time Date: 05/06/17 Time: 02:36 Decision To Admit - Pt Status Changed To: Hospital Disposition Of: Inpatient Admission - Admit Certification Admit to Inpatient:: After my assessment, the patient will require hospitalization for at least two midnights. This is because of the severity of symptoms shown, intensity of services needed, and/or the medical risk in this patient being treated as an outpatient. - . Bed Request Type: Telemetry <Stephie Horowitz - Last Filed: 05/06/17 06:36> Results - Vital Signs Recent Vital Signs: Last Vital Signs Temp 97.8 F 05/06/17 00:00 Pulse 67 05/06/17 02:00 Resp 20 05/06/17 00:00 BP 158/68 H 05/06/17 05:59 Pulse Ox 80 L 05/06/17 00:00 - Labs Result Diagrams: 05/06/17 05:30 05/05/17 16:45 Labs: Laboratory Results - last 24 hr 05/06/17 05/06/17 05/06/17 02:25 05:30 05:30 WBC 6.9 D RBC 4.60 Hgb 10.1 L Hct 33.8 L MCV 73.5 L MCH 22.0 L MCHC 29.9 L RDW 17.9 H Plt Count 199 MPV 8.3 Gran % 73.9 H Lymph % (Auto) 14.6 L [place] % (Auto) 7.4 H Eos % (Auto) 2.8 Baso % (Auto) 1.3 Gran # 5.10 Lymph # 1.0 L [place] # 0.5 Eos # 0.2 Baso # 0.09 PT 42.8 H INR 3.63 H* APTT 46.0 H Free T4 1.48 TSH 3rd Generation 2.83
[2017-05-06 03:56] LABS: FREE T4 1.48 ng/dL (0.78-2.19)
[2017-05-06] MEDS: Pantoprazole 40 mg EC Tab PO SCH (05:59)
[2017-05-06 06:11] LABS: BASO # 0.09 K/mm3 (0.0-2.0); BASO % 1.3 % (0.0-3.0); EOS # 0.2 (0.0-0.7); EOS % 2.8 % (1.5-5.0); GRAN # 5.1 (1.4-6.5); GRAN % 73.9 % (50.0-68.0); HEMOGLOBIN 10.1 g/dL (12.0-16.0); LYMPH % 14.6 % (22.0-35.0); MEAN CELL VOLUME 73.5 fl (80.0-105.0); MEAN CORPUSCULAR HGB CONC 29.9 g/dl (31.0-37.0); MEAN PLATELET VOLUME 8.3 fl (7.0-11.0); MONO # 0.5 (0.1-0.6); MONO % 7.4 % (1.0-6.0); RBC 4.6 10^6/uL (3.5-6.1); RED CELL DISTRIBUTION WIDTH 17.9 % (11.5-14.5); WHITE BLOOD COUNT 6.9 10^3/ul (4.5-11.0)
[2017-05-06 06:31] LABS: INR 3.63 (0.93-1.08); PROTHROMBIN TIME 42.8 SECONDS (9.4-12.5)
[2017-05-06 06:43] LABS: ALB/GLOB RATIO 1.2 (1.1-1.8); ALBUMIN 3.8 g/dL (3.0-4.8); CALCIUM 9.3 mg/dL (8.4-10.5)
[2017-05-06] MEDS: Insulin Reg-MEDIUM-Coverage SC SCH ×4 (07:53→22:59)
[2017-05-06 08:27] LABS: IRON 28 ug/dL (45-180)
[2017-05-06 08:37] LABS: % IRON SATURATION 8 % (20-55); TOTAL IRON BINDING CAPACITY 348 ug/dL (265-497)
--- NOTE | 2017-05-06 09:11 | CT ---
PROCEDURE: CT Chest without contrast HISTORY: SOB; pleural effusion COMPARISON: None. TECHNIQUE: Contiguous axial images were obtained through the chest without intravenous contrast enhancement. Sagittal and coronal reconstructions were performed. Radiation dose (DLP): 756 mGy-cm. This CT exam was performed using one or more of the following dose reduction techniques: Automated exposure control, adjustment of the mA and/or kV according to patient size, and/or use of iterative reconstruction technique. FINDINGS: LUNGS: Moderate vascular congestion MEDIASTINUM: Unremarkable thoracic aorta. No aneurysm. Moderate cardiomegaly. Coronary artery calcifications. Main pulmonary artery unremarkable. No vascular congestion. No lymphadenopathy. PLEURA: Moderate size pleural effusions BONES: No fracture. No destructive lesion. UPPER ABDOMEN: Grossly unremarkable. OTHER FINDINGS: None. IMPRESSION: Moderate vascular congestion. Moderate size bilateral pleural effusions.
[2017-05-06] MEDS: Magnesium Oxide 400 mg Tab UD PO SCH ×2 (10:50→17:37)
[2017-05-06] MEDS: Insulin Human NPH/Reg 70/30 Vial(3 ml) SC SCH ×3 (10:51→17:36)
[2017-05-06 11:31] LABS: FERRITIN 23.9 ng/mL
--- NOTE | 2017-05-06 16:16 | CP.PCM.CON ---
History of Present Illness - History of Present Illness History of Present Illness: Infectious Disease Consultation: May 06, 2017 66 yo female with extensive medical history presenting with dyspnea on exertion while performing even daily activities. There is no symptoms on rest. She denies any other symptoms including fevers, chills, nausea, vomiting, diarrhea, headaches, dizziness, chest pain, abdominal pain, melena, hematuria, hematemesis , or hematochezia. She appears comfortable in bed at this time. PMHx: IDDM2, HTN, Atrial Fibrillation, CVA, CAD, and HLD. History of hernia. 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 Amlodipine Besylate (Norvasc) 10 mg PO DAILY [facility] Last Admin: 05/06/17 10:50 Dose: 10 mg Atorvastatin Calcium (Lipitor) 40 mg PO QOTHERDAY [facility] Clonidine HCl (Catapres) 0.3 mg PO TID [facility] Last Admin: 05/06/17 14:30 Dose: 0.3 mg Furosemide (Lasix) 40 mg IVP Q12H [facility] Last Admin: 05/06/17 05:59 Dose: 40 mg Hydralazine HCl (Apresoline) 10 mg IVP Q4 PRN PRN Reason: Systolic Blood Pressure Insulin Human Regular (Humulin R Med) 0 units SC ACHS [facility] PRN Reason: Protocol Last Admin: 05/06/17 14:26 Dose: 3 units Isosorbide Mononitrate (Imdur Er) 30 mg PO 0600 [facility] Last Admin: 05/06/17 05:59 Dose: 30 mg Losartan Potassium (Cozaar) 100 mg PO DAILY [facility] Last Admin: 05/06/17 10:50 Dose: 100 mg Magnesium Oxide (Mag-Ox) 400 mg PO BID [facility] Last Admin: 05/06/17 10:50 Dose: 400 mg Metoprolol Tartrate (Lopressor) 50 mg PO TID [facility] Last Admin: 05/06/17 14:29 Dose: 50 mg Pantoprazole Sodium (Protonix Ec Tab) 40 mg PO 0600 [facility] Last Admin: 05/06/17 05:59 Dose: 40 mg Family Hx: none given ROS: Dyspnea No fevers, chills, nausea, vomiting, diarrhea, headaches, dizziness, chest pain , abdominal pain, melena, hematuria, hematemesis, hematochezia. Past Patient History - Infectious Disease Hx of Infectious Diseases: None - Tetanus Immunizations Tetanus Immunization: Unknown - Past Social History Smoking Status: Former Smoker - CARDIAC Hx Cardiac Disorders: Yes Hx Atrial Fibrillation: Yes Hx Hypertension: Yes Other/Comment: stents placed in heart, 2 - PULMONARY Hx Respiratory Disorders: No - NEUROLOGICAL HX Cerebrovascular Accident: Yes ((Residual L-sided weakness)) - HEENT Hx HEENT Problems: No - RENAL Hx Chronic Kidney Disease: No - ENDOCRINE/METABOLIC Hx Endocrine Disorders: Yes Hx Diabetes Mellitus Type 2: Yes - HEMATOLOGICAL/ONCOLOGICAL Hx Blood Disorders: Yes Hx Anemia: Yes Hx Blood Transfusions: No - INTEGUMENTARY Hx Dermatological Problems: No - MUSCULOSKELETAL/RHEUMATOLOGICAL Hx Arthritis: Yes - GASTROINTESTINAL Hx Gastrointestinal Disorders: Yes Other/Comment: Increased Gas problems in abd since Stroke last year - GENITOURINARY/GYNECOLOGICAL Hx Genitourinary Disorders: No - PSYCHIATRIC Hx Psychophysiologic Disorder: No Hx Substance Use: No - SURGICAL HISTORY Hx Cardiac Catheterization: Yes Hx Coronary Stent: Yes (x2) Other/Comment: right leg r/t cellulitis 2015 - ANESTHESIA Hx Anesthesia: Yes Hx Anesthesia Reactions: No Meds Allergies/Adverse Reactions: Allergies Allergy/AdvReac Type Severity Reaction Status Date / Time codeine Allergy SHORTNESS Verified 01/30/17 14:31 OF BREATH Penicillins Allergy ANAPHYLAXIS Verified 01/30/17 14:31 clopidogrel AdvReac SHORTNESS Verified 01/30/17 14:31 OF BREATH peaches Allergy Severe REDNESS Uncoded 01/30/17 14:31 nectarines Allergy Mild SHORTNESS Uncoded 01/30/17 14:31 OF BREATH - Medications Medications: Current Medications Amlodipine Besylate (Norvasc) 10 mg PO DAILY [facility] Last Admin: 05/06/17 10:50 Dose: 10 mg Atorvastatin Calcium (Lipitor) 40 mg PO QOTHERDAY [facility] Clonidine HCl (Catapres) 0.3 mg PO TID [facility] Last Admin: 05/06/17 14:30 Dose: 0.3 mg Furosemide (Lasix) 40 mg IVP Q12H [facility] Last Admin: 05/06/17 05:59 Dose: 40 mg Hydralazine HCl (Apresoline) 10 mg IVP Q4 PRN PRN Reason: Systolic Blood Pressure Insulin Human Regular (Humulin R Med) 0 units SC ACHS [facility] PRN Reason: Protocol Last Admin: 05/06/17 14:26 Dose: 3 units Isosorbide Mononitrate (Imdur Er) 30 mg PO 0600 [facility] Last Admin: 05/06/17 05:59 Dose: 30 mg Losartan Potassium (Cozaar) 100 mg PO DAILY [facility] Last Admin: 05/06/17 10:50 Dose: 100 mg Magnesium Oxide (Mag-Ox) 400 mg PO BID [facility] Last Admin: 05/06/17 10:50 Dose: 400 mg Metoprolol Tartrate (Lopressor) 50 mg PO TID [facility] Last Admin: 05/06/17 14:29 Dose: 50 mg Pantoprazole Sodium (Protonix Ec Tab) 40 mg PO 0600 [facility] Last Admin: 05/06/17 05:59 Dose: 40 mg Physical Exam - Constitutional Appears: Non-toxic, No Acute Distress, Chronically Ill - Head Exam Head Exam: ATRAUMATIC, NORMOCEPHALIC - Eye Exam Eye Exam: EOMI, PERRL Pupil Exam: NORMAL ACCOMODATION, PERRL - ENT Exam ENT Exam: Mucous Membranes Moist, Normal External Ear Exam, TM's Normal Bilaterally - Neck Exam Neck exam: Positive for: Full Rom, Normal Inspection - Respiratory Exam Respiratory Exam: Decreased Breath Sounds, Rhonchi, NORMAL BREATHING PATTERN. absent: Rales, Wheezes Additional comments: left lower lobe rhonchi - Cardiovascular Exam Cardiovascular Exam: Irregular Rhythm, +S1, +S2 - GI/Abdominal Exam GI & Abdominal Exam: Hernia, Normal Bowel Sounds, Soft. absent: Tenderness Additional comments: Ventral hernia on right side of umbilicus. - Extremities Exam Extremities exam: Positive for: full ROM, normal inspection - Neurological Exam Neurological exam: Alert, CN II-XII Intact, Oriented x3 - Psychiatric Exam Psychiatric exam: Normal Affect, Normal Mood - Skin Skin Exam: Intact, Normal Color Results - Vital Signs Recent Vital Signs: Last Vital Signs Temp 97.4 F L 05/06/17 12:00 Pulse 90 05/06/17 14:30 Resp 19 05/06/17 12:00 BP 182/77 H 05/06/17 14:30 Pulse Ox 90 L 05/06/17 06:00 - Labs Result Diagrams: 05/06/17 05:30 05/06/17 05:30 Labs: Laboratory Results - last 24 hr 05/06/17 05/06/17 05/06/17 02:25 05:30 05:30 WBC 6.9 D RBC 4.60 Hgb 10.1 L Hct 33.8 L MCV 73.5 L MCH 22.0 L MCHC 29.9 L RDW 17.9 H Plt Count 199 MPV 8.3 Gran % 73.9 H Lymph % (Auto) 14.6 L Hancock % (Auto) 7.4 H Eos % (Auto) 2.8 Baso % (Auto) 1.3 Gran # 5.10 Lymph # 1.0 L Hancock # 0.5 Eos # 0.2 Baso # 0.09 PT INR APTT Sodium 144 Potassium 4.9 Chloride 111 H Carbon Dioxide 24 Anion Gap 15 BUN 24 H Creatinine 1.2 Est GFR ( Amer) 54 Est GFR (Non-Af Amer) 45 POC Glucose (mg/dL) Random Glucose 184 H Calcium 9.3 Iron TIBC % Saturation Ferritin Total Bilirubin 1.0 AST 27 ALT 22 Alkaline Phosphatase 109 Troponin I Total Protein 7.1 Albumin 3.8 Globulin 3.3 Albumin/Globulin Ratio 1.2 Vitamin B12 Free T4 1.48 TSH 3rd Generation 2.83 05/06/17 05/06/17 05/06/17 05:30 05:30 05:30 WBC RBC Hgb Hct MCV MCH MCHC RDW Plt Count MPV Gran % Lymph % (Auto) Hancock % (Auto) Eos % (Auto) Baso % (Auto) Gran # Lymph # Hancock # Eos # Baso # PT 42.8 H INR 3.63 H* APTT 46.0 H Sodium Potassium Chloride Carbon Dioxide Anion Gap BUN Creatinine Est GFR ( Amer) Est GFR (Non-Af Amer) POC Glucose (mg/dL) Random Glucose Calcium Iron 28 L TIBC 348 % Saturation 8 L Ferritin 23.9 Total Bilirubin AST ALT Alkaline Phosphatase Troponin I Total Protein Albumin Globulin Albumin/Globulin Ratio Vitamin B12 301 Free T4 TSH 3rd Generation 05/06/17 05/06/17 05/06/17 05:30 07:38 11:29 WBC RBC Hgb Hct MCV MCH MCHC RDW Plt Count MPV Gran % Lymph % (Auto) Hancock % (Auto) Eos % (Auto) Baso % (Auto) Gran # Lymph # Hancock # Eos # Baso # PT INR APTT Sodium Potassium Chloride Carbon Dioxide Anion Gap BUN Creatinine Est GFR ( Amer) Est GFR (Non-Af Amer) POC Glucose (mg/dL) 170 H 207 H Random Glucose Calcium Iron TIBC % Saturation Ferritin Total Bilirubin AST ALT Alkaline Phosphatase Troponin I 0.02 D Total Protein Albumin Globulin Albumin/Globulin Ratio Vitamin B12 Free T4 TSH 3rd Generation Assessment & Plan - Assessment and Plan (Free Text) Assessment: 66 yo female with dyspnea on exertion. Chest X-ray showing LLL infiltrate/ pleural effusion. Currently in atrial fibrillation. Patient with PCN allergy. On Aztreonam. Add Azithromycin. Procalcitonin was very low. Supportive care. Glez cultures pending. Thank you for allowing me to participate in the care of the patient, we will follow with you.
--- NOTE | 2017-05-06 20:51 | CON ---
DATE: 05/06/2017 INDICATIONS: Shortness of breath and CHF. HISTORY OF PRESENT ILLNESS: This is a 66-year-old woman, known to our practice, admitted with a short history of increasing shortness of breath with dyspnea on exertion and some increased edema. There is no chest pain, orthopnea, PND, syncope, presyncope, lightheadedness, dizziness, or vertigo. No fever, chills, cough, sputum production, or hemoptysis. No abdominal pain, nausea, vomiting, diarrhea, constipation, or melena. PAST MEDICAL HISTORY: Her past medical history is notable for chronic atrial fibrillation, on warfarin; hypertension; remote stroke; diabetes; coronary artery disease with remote coronary interventions in 2007 and 1997; obesity; peripheral neuropathy; and lower extremity cellulitis with surgical procedures. There is no history of myocardial infarction, rheumatic fever, or gout. MEDICATIONS: At the time of admission include clonidine, warfarin, Diovan, glipizide, Imdur, Lipitor, metoprolol, meclizine, Norvasc, insulin, vitamin D, and metformin. ALLERGIES: SHE NOTES ALLERGIES TO CODEINE, PENICILLIN, AND PLAVIX. SOCIAL HISTORY: She lives at home. She is a former smoker. She does not drink alcohol significantly. FAMILY HISTORY: Noncontributory. REVIEW OF SYSTEMS: Ten-point review of systems is otherwise unremarkable except as noted above. PHYSICAL EXAMINATION GENERAL: She is a well-developed woman, sitting on her bed, on telemetry, in no acute distress. VITAL SIGNS: She is in atrial fibrillation at 81 beats per minutes. She is afebrile, blood pressure of 158/68, respirations 18 to 20, oxygen saturation 90% to 100% on nasal cannula with desaturation on room air. HEENT: Reveals no neck vein distention, thyromegaly, carotid bruit. Mucous membranes moist. Conjunctivae pink. NECK: Supple. LUNGS: Lung espinosa with scattered rhonchi and diminished breath sounds at the bases. HEART: Examination of the heart revealed distant heart sounds and almost 1st and 2nd heart sounds, irregular rhythm. PMI is not palpable. ABDOMEN: Soft. Bowel sounds are present. No mass or organomegaly, tenderness, rebound, or guarding. No CVA tenderness. No palpable abdominal aortic aneurysm. EXTREMITIES: Exam revealed mild peripheral edema, chronic skin changes, evidence of prior surgery. NEUROLOGIC: Awake, alert and oriented. SKIN: Warm and dry. No rash or cellulitis. PSYCHIATRIC: Normal as to mood and affect. LABORATORY AND IMAGING: EKG demonstrates atrial fibrillation with poor R-wave progression, non-specific ST-wave changes. No change from a prior EKG. Chest x-ray reveals left lower lobe infiltrate associated with pleural effusion, changes are similar to prior chest x-ray. A CT scan of the chest reveals moderate vascular congestion, moderate size bilateral pleural effusions. White count is normal. Platelet count is normal. Hemoglobin is 10.1, hematocrit is 33.8. PT 42.8, INR is 3.63, PTT is 46, D-dimer is 1266. Electrolytes, BUN and creatinine are unremarkable. Blood sugar is 157, 184, and 170. Magnesium 1.5. LFTs are unremarkable. CK 57, troponin is 0.01, BNP 6670. Thyroid function is normal. Urinalysis is noted. IMPRESSION: The patient is a 66-year-old woman with coronary artery disease, chronic atrial fibrillation, admitted with increasing shortness of breath, CHF, pleural effusions, history of hypertension, stroke, diabetes, obesity, peripheral neuropathy, and chronic cellulitis. PLAN: At this time, she is admitted to telemetry. She is getting IV Lasix and magnesium replacement. She is getting clonidine, losartan, Isosorbide, Lipitor, metoprolol, amlodipine, and Protonix. We will monitor I's and O's and check stool for occult blood. Warfarin is being held because of an elevated INR. We will monitor the INR daily and resume warfarin when appropriate. I reviewed her old records. Echocardiogram is ordered. I will repeat her troponin level. She has been cultured. She is getting supplemental oxygen. She can be out of bed to a chair and ambulate in the room. She has bathroom privileges. I will follow along with you and I will make additional recommendations based on the clinical course. Once her congestive heart failure is controlled, she should be considered for a nuclear stress test. Marlo Cade MD [facility]
[2017-05-07] MEDS: Pantoprazole 40 mg EC Tab PO SCH (06:07)
[2017-05-07 06:28] LABS: HEMOGLOBIN 8.9 g/dL (12.0-16.0); MEAN CELL VOLUME 72.9 fl (80.0-105.0); MEAN CORPUSCULAR HEMOGLOBIN 21.5 pg (25.0-35.0); MEAN CORPUSCULAR HGB CONC 29.5 g/dl (31.0-37.0); MEAN PLATELET VOLUME 9.1 fl (7.0-11.0); RBC 4.14 10^6/uL (3.5-6.1); RED CELL DISTRIBUTION WIDTH 17.9 % (11.5-14.5); WHITE BLOOD COUNT 6.1 10^3/ul (4.5-11.0)
[2017-05-07 06:40] LABS: INR 2.64 (0.93-1.08)
[2017-05-07 07:03] LABS: ALB/GLOB RATIO 1.1 (1.1-1.8); ALBUMIN 3.1 g/dL (3.0-4.8); CALCIUM 8.8 mg/dL (8.4-10.5)
[2017-05-07] MEDS: Insulin Reg-MEDIUM-Coverage SC SCH ×4 (09:19→22:08)
[2017-05-07] MEDS: Magnesium Oxide 400 mg Tab UD PO SCH ×2 (11:06→17:17)
[2017-05-07] MEDS: Insulin Human NPH/Reg 70/30 Vial(3 ml) SC SCH ×3 (11:10→17:22)
--- NOTE | 2017-05-07 12:25 | CP.PCM.PN ---
<Charlie Rinaldi - Last Filed: 05/07/17 13:36> Subjective - Date & Time of Evaluation Date of Evaluation: 05/07/17 Time of Evaluation: 10:15 - Subjective Subjective: Patient was seen and examined at bedside. She states that her breathing has improved and her shortness of breath is less even with walking with physical therapy. States that she has been given list of subacute rehab places and that she is still considering them. The patient denies chest pain, shortness of breath, cough, fevers/chills, n/v/d, headaches, changes in vision/hearing, tinnitus, dizziness, fatigue, weakness, abdominal pain, changes in urine or bowel habits. Objective - Vital Signs/Intake and Output Vital Signs (last 24 hours): Temp Pulse Resp BP Pulse Ox 97.2 F L 90 20 160/77 H 96 05/07/17 12:00 05/07/17 12:00 05/07/17 12:00 05/07/17 12:00 05/07/17 05:55 Intake and Output: 05/07/17 05/07/17 06:59 18:59 Intake Total 240 Output Total 500 Balance -260 - Medications Medications: Current Medications Amlodipine Besylate (Norvasc) 10 mg PO DAILY [facility] Last Admin: 05/07/17 11:06 Dose: 10 mg Atorvastatin Calcium (Lipitor) 40 mg PO QOTHERDAY [facility] Last Admin: 05/07/17 11:06 Dose: 40 mg Clonidine HCl (Catapres) 0.3 mg PO TID [facility] Last Admin: 05/07/17 11:04 Dose: 0.3 mg Furosemide (Lasix) 40 mg IVP Q12 [facility] Hydralazine HCl (Apresoline) 10 mg IVP Q4 PRN PRN Reason: Systolic Blood Pressure Insulin Human Regular (Humulin R Med) 0 units SC ACHS [facility] PRN Reason: Protocol Last Admin: 05/07/17 09:19 Dose: Not Given Isosorbide Mononitrate (Imdur Er) 30 mg PO 0600 [facility] Last Admin: 05/07/17 06:07 Dose: 30 mg Losartan Potassium (Cozaar) 100 mg PO DAILY [facility] Last Admin: 05/07/17 11:09 Dose: 100 mg Magnesium Oxide (Mag-Ox) 400 mg PO BID [facility] Last Admin: 05/07/17 11:06 Dose: 400 mg Metoprolol Tartrate (Lopressor) 50 mg PO TID [facility] Last Admin: 05/07/17 11:09 Dose: 50 mg Pantoprazole Sodium (Protonix Ec Tab) 40 mg PO 0600 [facility] Last Admin: 05/07/17 06:07 Dose: 40 mg - Labs Labs: 05/07/17 06:00 05/07/17 06:00 PT 31.0 SECONDS (9.4-12.5) H 05/07/17 06:00 INR 2.64 (0.93-1.08) H 05/07/17 06:00 APTT 46.0 Seconds (25.1-36.5) H 05/06/17 05:30 - Constitutional Appears: Well, Non-toxic, No Acute Distress - Head Exam Head Exam: ATRAUMATIC, NORMAL INSPECTION, NORMOCEPHALIC - Eye Exam Eye Exam: EOMI, Normal appearance, PERRL - ENT Exam ENT Exam: Mucous Membranes Moist, Normal Exam - Neck Exam Neck Exam: Full ROM, Normal Inspection - Respiratory Exam Respiratory Exam: Rales (mild, bibasilar (L>R)), NORMAL BREATHING PATTERN. absent: Decreased Breath Sounds, Wheezes, Respiratory Distress - Cardiovascular Exam Cardiovascular Exam: RRR, +S1, +S2 - GI/Abdominal Exam GI & Abdominal Exam: Soft, Normal Bowel Sounds. absent: Distended, Tenderness - Extremities Exam Extremities Exam: Full ROM, Pedal Edema (2+ b/l ) Additional comments: RLE with scar s/p cellulitis - Back Exam Back Exam: NORMAL INSPECTION - Neurological Exam Neurological Exam: Alert, Awake, Oriented x3 - Psychiatric Exam Psychiatric exam: Normal Affect, Normal Mood - Skin Skin Exam: Normal Color, Warm Assessment and Plan - Assessment and Plan (Free Text) Assessment: 66 year old female with a past medical history significant for IDDM2, HTN, Atrial fibrillation on coumadin, abdominal hernia, previouse CVA (2013), HLD, and CAD who presents to the ED with shortness of breath and dyspnea on exertion. Patient was found to have a supratherapeutic INR as well as an elevated d-dimer in the ED. Despite elevated d-dimer, patient was not started on any anticoagulation due to supratherapeutic INR and risk of bleeding. She was also noted have to LLL infiltrate/pleural effusion on chest x-ray and found to be in atrial fibrillation on EKG. Plan: 1. LLL Infiltrate/Pleural Effusion with associated DUQUE - Chest X-Ray showed LLL infiltrate with pleural effusion - Chest CT W/O Contrast showed moderate vascular congestion. moderate sized b/l pleural effusions - Echo pending - MACHELLE titers, procalcitonin, TSH, free T4, blood culture, and sputum culture pending - procal is low so antibiotics has been stopped - Lasix 40mg IVP Q12; titrate tomorrow to 40mg IVP daily - 2 view CXR tomorrow AM to evaluate treatment progress - patient might require thoracentesis if no improvement noted, worsened shortness of breath, fevers/chills - Oxygen via NC at 2 L/min - Strict I/O and daily weight measurements - Pulmonology consulted, recs appreciated - ID consulted, recs appreciated - PT evaluation 2. Atrial Fibrillation, INR therapeutic - will continue to hold Coumadin today considering bleeding from accucheck spot yesterday; will start tomorrow - Found to have supratherapeutic INR - Daily PT/INR and aPTT - Cardiology consulted, recs appreciated 3. Anemia - Workup ordered - heme occult blood ordered - GI consulted, recs appreciated 4. History of HTN - Continue home Norvasc, Clonidine, Losartan and Metoprolol - Hydralazine PRN 5. History of DM2 - ISS - NPH 8u TID - Accuchecks ACHS - Carbohydrate consistent diet 6. History of CAD - Continue home Isosorbide Mononitrate 7. History of HLD - Continue home Lipitor 8. PPX GI Prophylaxis: Protonix DVT Prophylaxis: SCD's Patient was seen, examined and discussed with attending, Dr. Hema Rinaldi PGY1 Pager # [phone] <Moris Garrido - Last Filed: 05/07/17 16:39> Objective - Vital Signs/Intake and Output Vital Signs (last 24 hours): Temp Pulse Resp BP Pulse Ox 97.2 F L 67 20 158/72 H 96 05/07/17 12:00 05/07/17 14:49 05/07/17 12:00 05/07/17 14:49 05/07/17 05:55 Intake and Output: 05/07/17 05/07/17 06:59 18:59 Intake Total 240 780 Output Total 500 1300 Balance -260 -520 - Medications Medications: Current Medications Amlodipine Besylate (Norvasc) 10 mg PO DAILY [facility] Last Admin: 05/07/17 11:06 Dose: 10 mg Atorvastatin Calcium (Lipitor) 40 mg PO QOTHERDAY [facility] Last Admin: 05/07/17 11:06 Dose: 40 mg Clonidine HCl (Catapres) 0.3 mg PO TID [facility] Last Admin: 05/07/17 14:49 Dose: 0.3 mg Furosemide (Lasix) 40 mg IVP Q12 [facility] Hydralazine HCl (Apresoline) 10 mg IVP Q4 PRN PRN Reason: Systolic Blood Pressure Insulin Human Regular (Humulin R Med) 0 units SC ACHS [facility] PRN Reason: Protocol Last Admin: 05/07/17 16:30 Dose: Not Given Isosorbide Mononitrate (Imdur Er) 30 mg PO 0600 [facility] Last Admin: 05/07/17 06:07 Dose: 30 mg Losartan Potassium (Cozaar) 100 mg PO DAILY [facility] Last Admin: 05/07/17 11:09 Dose: 100 mg Magnesium Oxide (Mag-Ox) 400 mg PO BID [facility] Last Admin: 05/07/17 11:06 Dose: 400 mg Metoprolol Tartrate (Lopressor) 50 mg PO TID [facility] Last Admin: 05/07/17 14:49 Dose: 50 mg Pantoprazole Sodium (Protonix Ec Tab) 40 mg PO 0600 [facility] Last Admin: 05/07/17 06:07 Dose: 40 mg - Labs Labs: 05/07/17 06:00 05/07/17 06:00 PT 31.0 SECONDS (9.4-12.5) H 05/07/17 06:00 INR 2.64 (0.93-1.08) H 05/07/17 06:00 APTT 46.0 Seconds (25.1-36.5) H 05/06/17 05:30 Attending/Attestation - Attestation I have personally seen and examined this patient.: Yes I have fully participated in the care of the patient.: Yes I have reviewed all pertinent clinical information, including history, physical exam and plan: Yes Notes (Text): 05/07/17 16:33 Attending note; Patient seen and examined with resident. Patient is a 66 year old female with a past medical history significant for diabetes, hypertension, Atrial fibrillation on coumadin, abdominal hernia, previouse CVA (2013), upper lipidemia and coronary artery disease is admitted with shortness of breath and dyspnea on exertion. Patient also had minimal leg swelling . Shortness of breath possibly secondary to congestive heart failure. Patient also had bilateral pleural effusion. Last echo in 2014 showed ejection fraction of 51%. Cardiology evaluation with Dr. Cade requested. We will get echocardiogram. Started on IV Lasix . Daily weight,strict input and output ordered. Cough and shortness of breath; patient is afebrile. procalcitonin ordered. Less likely to be infectious causes. ID evaluation requested. Atrial fibrillation; supratherapeutic INR. Hold Coumadin. Anemia; follow up hemoglobin closely. Patient had colonoscopy over 10 years ago. Diabetes; continue insulin. Monitor closely. Upon discharge the patient will follow-up with PMD .
--- NOTE | 2017-05-07 14:20 | CP.PCM.PN ---
Subjective - Date & Time of Evaluation Date of Evaluation: 05/07/17 Time of Evaluation: 12:00 - Subjective Subjective: Infectious Disease Follow Up: May 07, 2017 66 yo female with extensive medical history presenting with dyspnea on exertion while performing even daily activities. There is no symptoms on rest. She denies any other symptoms including fevers, chills, nausea, vomiting, diarrhea, headaches, dizziness, chest pain, abdominal pain, melena, hematuria, hematemesis , or hematochezia. She appears comfortable in bed at this time. Today, the patient states that she feels better. She states she is less short of breath and able to ambulate further compared to when she was admitted. Objective - Vital Signs/Intake and Output Vital Signs (last 24 hours): Temp Pulse Resp BP Pulse Ox 97.2 F L 90 20 160/77 H 96 05/07/17 12:00 05/07/17 12:00 05/07/17 12:00 05/07/17 12:00 05/07/17 05:55 Intake and Output: 05/07/17 05/07/17 06:59 18:59 Intake Total 240 Output Total 500 Balance -260 - Medications Medications: Current Medications Amlodipine Besylate (Norvasc) 10 mg PO DAILY [facility] Last Admin: 05/07/17 11:06 Dose: 10 mg Atorvastatin Calcium (Lipitor) 40 mg PO QOTHERDAY [facility] Last Admin: 05/07/17 11:06 Dose: 40 mg Clonidine HCl (Catapres) 0.3 mg PO TID [facility] Last Admin: 05/07/17 11:04 Dose: 0.3 mg Furosemide (Lasix) 40 mg IVP Q12 [facility] Hydralazine HCl (Apresoline) 10 mg IVP Q4 PRN PRN Reason: Systolic Blood Pressure Insulin Human Regular (Humulin R Med) 0 units SC ACHS [facility] PRN Reason: Protocol Last Admin: 05/07/17 12:41 Dose: 1 units Isosorbide Mononitrate (Imdur Er) 30 mg PO 0600 [facility] Last Admin: 05/07/17 06:07 Dose: 30 mg Losartan Potassium (Cozaar) 100 mg PO DAILY [facility] Last Admin: 05/07/17 11:09 Dose: 100 mg Magnesium Oxide (Mag-Ox) 400 mg PO BID [facility] Last Admin: 05/07/17 11:06 Dose: 400 mg Metoprolol Tartrate (Lopressor) 50 mg PO TID [facility] Last Admin: 05/07/17 11:09 Dose: 50 mg Pantoprazole Sodium (Protonix Ec Tab) 40 mg PO 0600 [facility] Last Admin: 05/07/17 06:07 Dose: 40 mg - Labs Labs: 05/07/17 06:00 05/07/17 06:00 PT 31.0 SECONDS (9.4-12.5) H 05/07/17 06:00 INR 2.64 (0.93-1.08) H 05/07/17 06:00 APTT 46.0 Seconds (25.1-36.5) H 05/06/17 05:30 - Constitutional Appears: Non-toxic, No Acute Distress, Chronically Ill - Head Exam Head Exam: ATRAUMATIC, NORMOCEPHALIC - Eye Exam Eye Exam: EOMI, PERRL Pupil Exam: NORMAL ACCOMODATION, PERRL - ENT Exam ENT Exam: Mucous Membranes Moist, Normal External Ear Exam, TM's Normal Bilaterally - Neck Exam Neck Exam: Full ROM, Normal Inspection - Respiratory Exam Respiratory Exam: Decreased Breath Sounds, NORMAL BREATHING PATTERN. absent: Rales, Rhonchi, Wheezes Additional comments: left lower lobe rhonchi - Cardiovascular Exam Cardiovascular Exam: Irregular Rhythm, +S1, +S2 - GI/Abdominal Exam GI & Abdominal Exam: Soft, Hernia, Normal Bowel Sounds. absent: Tenderness Additional comments: ventral hernia on right side of umbilicus. - Extremities Exam Extremities Exam: Full ROM, Normal Inspection - Neurological Exam Neurological Exam: Alert, Awake, CN II-XII Intact, Oriented x3 - Psychiatric Exam Psychiatric exam: Normal Affect, Normal Mood - Skin Skin Exam: Intact, Normal Color Assessment and Plan - Assessment and Plan (Free Text) Assessment: 66 yo female with dyspnea on exertion. Chest X-ray showing LLL infiltrate/ pleural effusion. Currently in atrial fibrillation. Patient with PCN allergy. On Aztreonam. Add Azithromycin. Procalcitonin was very low. Supportive care. Glez cultures pending. Negative so far. Patient feeling better today. Less short of breath. Thank you for allowing me to participate in the care of the patient, we will follow with you.
--- NOTE | 2017-05-07 16:36 | CP.PCM.CON ---
History of Present Illness - History of Present Illness History of Present Illness: PULMONARY CONSULT NOTE REASON FOR CONSULT: PLEURAL EFFUSION HPI Patient is 66yo female with PMHx of IDDM2, HTN, Afib on Coumadin, CVA, presented to the hospital with SOB. Pt notes for the past week or so she has had difficuluty with breahting upon exertion, unable to climb a flight of stairs , associated with LE edema. Pt denies fever, chills, cough, chest pain, palpitations, GALVEZ, dizziness, hx of CHF. No other constitutional symptoms. CPt admitted to the telemetry, started on IV diuresis with clinical improvement. PMH: IDDM2, HTN, Atrial fibrillation on coumadin, abdominal hernia, CVA, HLD, and CAD PSH: Right LE surgery for cellulitis Family History: [place] Social History: Former smoker, quit 3 years ago, 40 pack year smoking history, denies alcohol or illicit drug use Allergies: Codeine, Penicillins, Clopidogrel, Peaches and Nectarines Home Medications: As per EMR Review of Systems - Review of Systems Review of Systems: as per HPI Past Patient History - Infectious Disease Hx of Infectious Diseases: None - Tetanus Immunizations Tetanus Immunization: Unknown - Past Social History Smoking Status: Former Smoker - CARDIAC Hx Cardiac Disorders: Yes Hx Atrial Fibrillation: Yes Hx Hypertension: Yes Other/Comment: stents placed in heart, 2 - PULMONARY Hx Respiratory Disorders: No - NEUROLOGICAL HX Cerebrovascular Accident: Yes ((Residual L-sided weakness)) - HEENT Hx HEENT Problems: No - RENAL Hx Chronic Kidney Disease: No - ENDOCRINE/METABOLIC Hx Endocrine Disorders: Yes Hx Diabetes Mellitus Type 2: Yes - HEMATOLOGICAL/ONCOLOGICAL Hx Blood Disorders: Yes Hx Anemia: Yes Hx Blood Transfusions: No - INTEGUMENTARY Hx Dermatological Problems: No - MUSCULOSKELETAL/RHEUMATOLOGICAL Hx Arthritis: Yes - GASTROINTESTINAL Hx Gastrointestinal Disorders: Yes Other/Comment: Increased Gas problems in abd since Stroke last year - GENITOURINARY/GYNECOLOGICAL Hx Genitourinary Disorders: No - PSYCHIATRIC Hx Psychophysiologic Disorder: No Hx Substance Use: No - SURGICAL HISTORY Hx Cardiac Catheterization: Yes Hx Coronary Stent: Yes (x2) Other/Comment: right leg r/t cellulitis 2015 - ANESTHESIA Hx Anesthesia: Yes Hx Anesthesia Reactions: No Meds Allergies/Adverse Reactions: Allergies Allergy/AdvReac Type Severity Reaction Status Date / Time codeine Allergy SHORTNESS Verified 01/30/17 14:31 OF BREATH Penicillins Allergy ANAPHYLAXIS Verified 01/30/17 14:31 clopidogrel AdvReac SHORTNESS Verified 01/30/17 14:31 OF BREATH peaches Allergy Severe REDNESS Uncoded 01/30/17 14:31 nectarines Allergy Mild SHORTNESS Uncoded 01/30/17 14:31 OF BREATH - Medications Medications: Current Medications Amlodipine Besylate (Norvasc) 10 mg PO DAILY [facility] Last Admin: 05/07/17 11:06 Dose: 10 mg Atorvastatin Calcium (Lipitor) 40 mg PO QOTHERDAY [facility] Last Admin: 05/07/17 11:06 Dose: 40 mg Clonidine HCl (Catapres) 0.3 mg PO TID [facility] Last Admin: 05/07/17 14:49 Dose: 0.3 mg Furosemide (Lasix) 40 mg IVP Q12 [facility] Hydralazine HCl (Apresoline) 10 mg IVP Q4 PRN PRN Reason: Systolic Blood Pressure Insulin Human Regular (Humulin R Med) 0 units SC ACHS [facility] PRN Reason: Protocol Last Admin: 05/07/17 12:41 Dose: 1 units Isosorbide Mononitrate (Imdur Er) 30 mg PO 0600 [facility] Last Admin: 05/07/17 06:07 Dose: 30 mg Losartan Potassium (Cozaar) 100 mg PO DAILY [facility] Last Admin: 05/07/17 11:09 Dose: 100 mg Magnesium Oxide (Mag-Ox) 400 mg PO BID [facility] Last Admin: 05/07/17 11:06 Dose: 400 mg Metoprolol Tartrate (Lopressor) 50 mg PO TID [facility] Last Admin: 05/07/17 14:49 Dose: 50 mg Pantoprazole Sodium (Protonix Ec Tab) 40 mg PO 0600 [facility] Last Admin: 05/07/17 06:07 Dose: 40 mg Physical Exam - Constitutional Appears: Well, Non-toxic, No Acute Distress - Head Exam Head Exam: NORMAL INSPECTION - Eye Exam Eye Exam: Normal appearance - ENT Exam ENT Exam: Mucous Membranes Moist - Respiratory Exam Respiratory Exam: Rales, NORMAL BREATHING PATTERN - Cardiovascular Exam Cardiovascular Exam: REGULAR RHYTHM, +S1, +S2 - GI/Abdominal Exam GI & Abdominal Exam: Normal Bowel Sounds, Soft - Extremities Exam Additional comments: 3+ edema - Neurological Exam Neurological exam: Alert, Oriented x3 Results - Vital Signs Recent Vital Signs: Last Vital Signs Temp 97.2 F L 05/07/17 12:00 Pulse 67 05/07/17 14:49 Resp 20 05/07/17 12:00 BP 158/72 H 05/07/17 14:49 Pulse Ox 96 05/07/17 05:55 - Labs Result Diagrams: 05/07/17 06:00 05/07/17 06:00 Labs: Laboratory Results - last 24 hr 05/06/17 05/06/17 05/06/17 02:25 02:25 21:17 WBC RBC Hgb Hct MCV MCH MCHC RDW Plt Count MPV PT INR Sodium Potassium Chloride Carbon Dioxide Anion Gap BUN Creatinine Est GFR ( Amer) Est GFR (Non-Af Amer) POC Glucose (mg/dL) 209 H Random Glucose Calcium Total Bilirubin AST ALT Alkaline Phosphatase Total Protein Albumin Globulin Albumin/Globulin Ratio Procalcitonin < 0.05 L MACHELLE Screen Negative 05/07/17 05/07/17 05/07/17 06:00 06:00 06:00 WBC 6.1 RBC 4.14 Hgb 8.9 L Hct 30.2 L MCV 72.9 L MCH 21.5 L MCHC 29.5 L RDW 17.9 H Plt Count 189 MPV 9.1 PT 31.0 H INR 2.64 H Sodium 145 Potassium 4.2 Chloride 111 H Carbon Dioxide 26 Anion Gap 12 BUN 24 H Creatinine 1.3 H Est GFR ( Amer) 50 Est GFR (Non-Af Amer) 41 POC Glucose (mg/dL) Random Glucose 113 H Calcium 8.8 Total Bilirubin 0.7 AST 19 ALT 26 Alkaline Phosphatase 85 Total Protein 6.0 Albumin 3.1 Globulin 2.9 Albumin/Globulin Ratio 1.1 Procalcitonin MACHELLE Screen 05/07/17 05/07/17 05/07/17 07:33 11:29 16:20 WBC RBC Hgb Hct MCV MCH MCHC RDW Plt Count MPV PT INR Sodium Potassium Chloride Carbon Dioxide Anion Gap BUN Creatinine Est GFR ( Amer) Est GFR (Non-Af Amer) POC Glucose (mg/dL) 121 H 173 H 105 Random Glucose Calcium Total Bilirubin AST ALT Alkaline Phosphatase Total Protein Albumin Globulin Albumin/Globulin Ratio Procalcitonin MACHELLE Screen - Imaging and Cardiology CT scan - chest Status: Image reviewed by me, Report reviewed by me Assessment & Plan - Assessment and Plan (Free Text) Assessment: 66yo female a/w bilateral pleural effusions Pleural Effusions - currently afebrile, HD stable, comfortable on room air, NAD, reports DUQUE/SOB is much improved after IV diuresis - On exam has bilateral crackles at the bases - Cardiology Following, on IV diuresis - No fevers, WBC wnl, Procal negative, BCx negative, unlikely to be infectious component of pleural effusions, pleural effusions likely 2/2 transudative process such as volume overload/CHF - would obtain ECHO - cont with IV diuresis - follow up ID, and Cardiology - if no further clinical improvement, would possibly do thoracentesis if needed - GI ppx - DVT ppx - Monitor on telemetry
--- NOTE | 2017-05-07 17:33 | PN ---
DATE: 05/07/2017 SUBJECTIVE: The patient is seen sitting in bed on telemetry. She feels somewhat better. Dyspnea is improved. Her current medications include Catapres 0.3 mg t.i.d., Cozaar 100 mg daily, Imdur 30 mg daily, Lasix 40 mg IV b.i.d., Lipitor 40 mg every other day, metoprolol 50 mg t.i.d., magnesium supplement, Norvasc 10 mg daily, and Protonix 40 mg daily. OBJECTIVE: GENERAL: She is an obese, middle-aged woman. VITAL SIGNS: Blood pressure is 158/60 with a pulse of 76, in atrial fibrillation, respirations 16. She is afebrile. HEENT: No JVD. CHEST: Diminished breath sounds at the bases. HEART: PMI displaced laterally with systolic murmur in the left sternal border and apex. ABDOMEN: Soft, obese, nontender, normoactive bowel sounds. EXTREMITIES: 1+ leg edema. DIAGNOSTIC DATA: Potassium 4.2, BUN/creatinine 24/1.3, white count 6.1, hemoglobin/hematocrit 8.9/30.2 with an MCV of 72.9, platelet count is 189,000. INR is 2.64. IMPRESSION: 1. Decompensated congestive heart failure, acute on chronic. 2. Chronic atrial fibrillation with recent supratherapeutic INR. 3. Coronary artery disease, status post remote percutaneous coronary intervention. 4. History of diabetes and prior cerebrovascular accidents. 5. History of peripheral neuropathy. RECOMMENDATIONS: Continued diuresis is advised. A followup chest x-ray should be planned for the next day or two. An echocardiogram has been ordered and is pending. Sodium fluid restrictions are advised. Intensification in antihypertensive therapy is recommended as well. We will continue to follow and make further recommendations as appropriate. Mauro Dowell MD
[2017-05-08 06:37] LABS: HEMOGLOBIN 9.3 g/dL (12.0-16.0); MEAN CELL VOLUME 73.6 fl (80.0-105.0); MEAN CORPUSCULAR HEMOGLOBIN 21.9 pg (25.0-35.0); MEAN CORPUSCULAR HGB CONC 29.8 g/dl (31.0-37.0); RBC 4.24 10^6/uL (3.5-6.1); RED CELL DISTRIBUTION WIDTH 17.7 % (11.5-14.5)
[2017-05-08 06:45] LABS: ALB/GLOB RATIO 1.1 (1.1-1.8); ALBUMIN 3.4 g/dL (3.0-4.8)
[2017-05-08] MEDS: Pantoprazole 40 mg EC Tab PO SCH (06:46)
[2017-05-08 07:21] LABS: INR 1.75 (0.93-1.08); PROTHROMBIN TIME 20.4 SECONDS (9.4-12.5)
[2017-05-08] MEDS: Insulin Reg-MEDIUM-Coverage SC SCH ×4 (07:50→21:34)
--- NOTE | 2017-05-08 08:17 | CP.PCM.PN ---
Subjective - Date & Time of Evaluation Date of Evaluation: 05/08/17 Time of Evaluation: 07:00 - Subjective Subjective: Stable on 2R. No SOB, CP.She is refusing an echocardiogram b/o insurance reasons. Also refusing some lasix doses. V/S noted. AF PE: Lungs: BS at bases Cor.: irreg S1S2 Abd.: non-tender Ext.: mild edema Neuro.: alert I/O = 780/1300 Labs noted: H/H = 9.1/31.2, INR= 1.75, Cr.= 1.3 BC x2 NG at 48 hrs. Objective - Vital Signs/Intake and Output Vital Signs (last 24 hours): Temp Pulse Resp BP Pulse Ox 97.8 F 60 20 164/89 H 99 05/08/17 06:00 05/08/17 06:00 05/08/17 06:00 05/08/17 06:46 05/08/17 06:00 - Medications Medications: Current Medications Amlodipine Besylate (Norvasc) 10 mg PO DAILY [facility] Last Admin: 05/07/17 11:06 Dose: 10 mg Atorvastatin Calcium (Lipitor) 40 mg PO QOTHERDAY [facility] Last Admin: 05/07/17 11:06 Dose: 40 mg Clonidine HCl (Catapres) 0.3 mg PO TID [facility] Last Admin: 05/07/17 22:08 Dose: 0.3 mg Furosemide (Lasix) 40 mg IVP 0600,1800 [facility] Last Admin: 05/08/17 06:46 Dose: 40 mg Hydralazine HCl (Apresoline) 10 mg IVP Q4 PRN PRN Reason: Systolic Blood Pressure Insulin Human Regular (Humulin R Med) [address] [facility] PRN Reason: Protocol Last Admin: 05/08/17 07:50 Dose: Not Given Isosorbide Mononitrate (Imdur Er) 30 mg PO 0600 [facility] Last Admin: 05/08/17 06:46 Dose: 30 mg Losartan Potassium (Cozaar) 100 mg PO DAILY [facility] Last Admin: 05/07/17 11:09 Dose: 100 mg Magnesium Oxide (Mag-Ox) 400 mg PO BID [facility] Last Admin: 05/07/17 17:17 Dose: 400 mg Metoprolol Tartrate (Lopressor) 50 mg PO TID [facility] Last Admin: 05/07/17 17:17 Dose: 50 mg Pantoprazole Sodium (Protonix Ec Tab) 40 mg PO 0600 [facility] Last Admin: 05/08/17 06:46 Dose: 40 mg Warfarin Sodium (Coumadin) 5 mg PO 1800 [facility] PRN Reason: Protocol - Labs Labs: 05/08/17 05:30 05/08/17 05:20 PT 20.4 SECONDS (9.4-12.5) H 05/08/17 05:30 INR 1.75 (0.93-1.08) H 05/08/17 05:30 APTT 46.0 Seconds (25.1-36.5) H 05/06/17 05:30 Assessment and Plan - Assessment and Plan (Free Text) Plan: Dyspnea CHF/Pleural Effusions CAD/remote PCI AF HBP CVA Diabetes Obesity PN Cellulitis Plan: Continue IV Lasix Echo if she will agree Warfarin with daily INR's Monitor I/O, labs, sats., cultures, INR's, etc As per ID, GI, Pulm.
[2017-05-08] MEDS: Magnesium Oxide 400 mg Tab UD PO SCH ×2 (09:05→17:59)
[2017-05-08] MEDS: Insulin Human NPH/Reg 70/30 Vial(3 ml) SC SCH ×3 (09:06→17:57)
--- NOTE | 2017-05-08 10:46 | CON ---
DATE: 05/08/2017 GASTROENTEROLOGY CONSULTATION REQUESTING PHYSICIAN: Dr. Garrido REASON FOR CONSULTATION: I have been asked to see this 66-year-old female with multiple comorbidities including congestive heart failure, chronic venous stasis of the lower extremities, type 2 diabetes mellitus, hypertension, atrial fibrillation, on warfarin, history of CVA, coronary artery disease who comes to the hospital with 1-week history of increasing shortness of breath especially with exertion. She denies any chest pain, palpitations. Evaluation in the hospital revealed that the patient was in congestive heart failure. I have been asked to see this patient for anemia. She denies any rectal bleeding, melena, nausea, vomiting, hematemesis. Routine blood work shows a iron saturation of 8% with a low iron and a normal total iron binding capacity. PAST MEDICAL HISTORY: As above. Again, she has a history of atrial fibrillation, on warfarin; type 2 diabetes mellitus; hypertension; history of CVA; chronic venous stasis of her lower extremities; ventral hernia; CVA. PAST SURGICAL HISTORY: Notable for right leg surgery for chronic venous insufficiency and cellulitis. SOCIAL HISTORY: She is a former cigarette smoker having quit 3 years ago. She denies alcohol use. FAMILY HISTORY: Noncontributory. REVIEW OF SYSTEMS: 14-point review of systems is notable for dyspnea on exertion. HOME MEDICATIONS: Include Catapres 0.3 mg three times a day, warfarin 7.5 mg daily, meclizine 25 mg three times a day, vitamin D 5000 IU weekly, Lipitor 40 mg every other day, Norvasc 10 mg once a day, Diovan 160 mg once a day, metoprolol 50 mg three times a day, Isordil 30 mg daily, Glucophage 1000 mg b.i.d., NPH Novolin 8 units subcu 3 times a day and glipizide 10 mg daily. PHYSICAL EXAMINATION: GENERAL: Obese female lying in bed, in no acute distress. VITAL SIGNS: Reveal temperature of 97.8, blood pressure 186/82, heart rate is 74. Her BMI is 36.3. HEENT: Reveal sclerae to be white. Conjunctivae are pale. NECK: Supple. CHEST: Reveal decreased breath sounds at the bases. HEART: Exam reveals an irregular rate. ABDOMEN: Obese, soft. She has a large lower abdominal ventral hernia. EXTREMITIES: Show chronic stasis changes of her lower extremities with trace pedal edema. Norm Gaxiola MD
--- NOTE | 2017-05-08 10:47 | CON ---
DATE: 05/08/2017 ADDENDUM LABORATORY DATA: Hemoglobin of 9.3, white blood cell count is 6, platelet count 170,000. Chemistries reveal BUN 30, creatinine 1.3, blood sugar 133. AST, ALT, alk phos were all normal. Her ferritin is 23.9, percent saturation is 8 with serum iron 20 and TIBC of 348. IMPRESSION: A 66-year-old female with multiple comorbidities including atrial fibrillation, on warfarin; congestive heart failure; chronic stasis changes of the lower extremities; obesity with anemia, I suspect that this is anemia of chronic disease as the patient has a history of diabetes mellitus as well as what appears to be chronic kidney disease. Her GFR is estimated to be at 45. There is no evidence of any active gastrointestinal bleeding at this time. Given her multiple comorbidities, will treat the patient conservatively. RECOMMENDATIONS: 1. We will start the patient on Feosol 324 mg three times a day. 2. Check stool guaiacs. 3. The patient can be followed up as an outpatient with outpatient endoscopy and colonoscopy once her congestive heart failure has resolved. Norm Gaxiola MD
--- NOTE | 2017-05-08 11:25 | CP.PCM.PN ---
Subjective - Date & Time of Evaluation Date of Evaluation: 05/08/17 Time of Evaluation: 11:23 - Subjective Subjective: Pt seen and examined, reports to be doing well. Denies SOB, able to ambulate to the bathroom without SOB. Objective - Vital Signs/Intake and Output Vital Signs (last 24 hours): Temp Pulse Resp BP Pulse Ox 97.8 F 74 20 186/82 H 99 05/08/17 06:00 05/08/17 09:09 05/08/17 06:00 05/08/17 09:09 05/08/17 06:00 - Medications Medications: Current Medications Amlodipine Besylate (Norvasc) 10 mg PO DAILY [facility] Last Admin: 05/08/17 09:05 Dose: 10 mg Atorvastatin Calcium (Lipitor) 40 mg PO QOTHERDAY [facility] Last Admin: 05/07/17 11:06 Dose: 40 mg Clonidine HCl (Catapres) 0.3 mg PO TID [facility] Last Admin: 05/08/17 09:05 Dose: 0.3 mg Ferrous Sulfate (Feosol) 324 mg PO TID [facility] Last Admin: 05/08/17 10:52 Dose: 324 mg Furosemide (Lasix) 40 mg IVP 0600,1800 [facility] Last Admin: 05/08/17 06:46 Dose: 40 mg Hydralazine HCl (Apresoline) 10 mg IVP Q4 PRN PRN Reason: Systolic Blood Pressure Insulin Human Regular (Humulin R Med) 0 units SC [facility] PRN Reason: Protocol Last Admin: 05/08/17 07:50 Dose: Not Given Isosorbide Mononitrate (Imdur Er) 30 mg PO 0600 [facility] Last Admin: 05/08/17 06:46 Dose: 30 mg Losartan Potassium (Cozaar) 100 mg PO DAILY [facility] Last Admin: 05/08/17 09:06 Dose: 100 mg Magnesium Oxide (Mag-Ox) 400 mg PO BID [facility] Last Admin: 05/08/17 09:05 Dose: 400 mg Metoprolol Tartrate (Lopressor) 50 mg PO TID [facility] Last Admin: 05/08/17 09:09 Dose: 50 mg Pantoprazole Sodium (Protonix Ec Tab) 40 mg PO 0600 [facility] Last Admin: 05/08/17 06:46 Dose: 40 mg Warfarin Sodium (Coumadin) 5 mg PO 1800 [facility] PRN Reason: Protocol - Labs Labs: 05/08/17 05:30 05/08/17 05:20 PT 20.4 SECONDS (9.4-12.5) H 05/08/17 05:30 INR 1.75 (0.93-1.08) H 05/08/17 05:30 APTT 46.0 Seconds (25.1-36.5) H 05/06/17 05:30 - Constitutional Appears: Non-toxic, No Acute Distress - Head Exam Head Exam: NORMAL INSPECTION - Eye Exam Eye Exam: Normal appearance - ENT Exam ENT Exam: Mucous Membranes Moist - Respiratory Exam Respiratory Exam: Clear to Ausculation Bilateral, NORMAL BREATHING PATTERN - Cardiovascular Exam Cardiovascular Exam: REGULAR RHYTHM, +S1, +S2 - GI/Abdominal Exam GI & Abdominal Exam: Soft, Normal Bowel Sounds - Extremities Exam Additional comments: +3 edema Assessment and Plan - Assessment and Plan (Free Text) Assessment: 66yo female a/w bilateral pleural effusions Pleural Effusions - currently afebrile, HD stable, comfortable on 2LNC, NAD, reports DUQUE/SOB is much improved able to ambulate to the bathroom without SOB, which she could not do before - Cardiology Following, on IV diuresis - No fevers, WBC wnl, Procal negative, BCx negative, unlikely to be infectious component of pleural effusions, pleural effusions likely 2/2 transudative process such as volume overload/CHF - would obtain ECHO, ??insurance issues obtaining ECHO - cont with IV diuresis - follow up ID, and Cardiology - Dose Coumadin - GI ppx - DVT ppx - Monitor on telemetry
[2017-05-08] MEDS ORDERED: Azithromycin 500MG/NS 250ml 500 MG/250 ML BAG IVPB SCH (12:15)
--- NOTE | 2017-05-08 12:46 | CP.PCM.PN ---
<Charlie Rinaldi - Last Filed: 05/08/17 13:39> Subjective - Date & Time of Evaluation Date of Evaluation: 05/08/17 Time of Evaluation: 09:00 - Subjective Subjective: Patient was seen and examined bedside. She is stating that her cough and shortness of breath has improved drastically. Discussion about her insurance issues and worrying about costs of tests has been worrying the patient which is why she has been refusing echo and other services. SW and medical team had lengthy discussion about cost of admission and that patient should not refuse necessary tests like the echo. The patient denies chest pain, shortness of breath, cough, fevers/chills, n/v/d, headaches, changes in vision/hearing, tinnitus, dizziness, fatigue, weakness, abdominal pain, changes in urine or bowel habits. Objective - Vital Signs/Intake and Output Vital Signs (last 24 hours): Temp Pulse Resp BP Pulse Ox 97.8 F 74 20 186/82 H 99 05/08/17 06:00 05/08/17 09:09 05/08/17 06:00 05/08/17 09:09 05/08/17 06:00 - Medications Medications: Current Medications Amlodipine Besylate (Norvasc) 10 mg PO DAILY [facility] Last Admin: 05/08/17 09:05 Dose: 10 mg Atorvastatin Calcium (Lipitor) 40 mg PO QOTHERDAY [facility] Last Admin: 05/07/17 11:06 Dose: 40 mg Clonidine HCl (Catapres) 0.3 mg PO TID [facility] Last Admin: 05/08/17 09:05 Dose: 0.3 mg Ferrous Sulfate (Feosol) 324 mg PO TID [facility] Last Admin: 05/08/17 10:52 Dose: 324 mg Furosemide (Lasix) 40 mg IVP 0600,1800 [facility] Last Admin: 05/08/17 06:46 Dose: 40 mg Hydralazine HCl (Apresoline) 10 mg IVP Q4 PRN PRN Reason: Systolic Blood Pressure Aztreonam (Azactam 1 Gm) 100 mls @ 100 mls/hr IVPB Q8 [facility] PRN Reason: Protocol Stop: 05/08/17 22:59 Azithromycin (Zithromax 500mg In Ns) 500 mg in 250 mls @ 167 mls/hr IVPB DAILY [facility] PRN Reason: Protocol Insulin Human Regular (Humulin R Med) 0 units SC ACHS [facility] PRN Reason: Protocol Last Admin: 05/08/17 07:50 Dose: Not Given Isosorbide Mononitrate (Imdur Er) 30 mg PO 0600 [facility] Last Admin: 05/08/17 06:46 Dose: 30 mg Losartan Potassium (Cozaar) 100 mg PO DAILY [facility] Last Admin: 05/08/17 09:06 Dose: 100 mg Magnesium Oxide (Mag-Ox) 400 mg PO BID [facility] Last Admin: 05/08/17 09:05 Dose: 400 mg Metoprolol Tartrate (Lopressor) 50 mg PO TID [facility] Last Admin: 05/08/17 09:09 Dose: 50 mg Pantoprazole Sodium (Protonix Ec Tab) 40 mg PO 0600 [facility] Last Admin: 05/08/17 06:46 Dose: 40 mg Warfarin Sodium (Coumadin) 5 mg PO 1800 [facility] PRN Reason: Protocol - Labs Labs: 05/08/17 05:30 05/08/17 05:20 PT 20.4 SECONDS (9.4-12.5) H 05/08/17 05:30 INR 1.75 (0.93-1.08) H 05/08/17 05:30 APTT 46.0 Seconds (25.1-36.5) H 05/06/17 05:30 - Additional Findings Additional findings: - Constitutional Appears: Well, Non-toxic, No Acute Distress - Head Exam Head Exam: ATRAUMATIC, NORMAL INSPECTION, NORMOCEPHALIC - Eye Exam Eye Exam: EOMI, Normal appearance, PERRL - ENT Exam ENT Exam: Mucous Membranes Moist, Normal Exam - Neck Exam Neck Exam: Full ROM, Normal Inspection - Respiratory Exam Respiratory Exam: Rales (mild, bibasilar), NORMAL BREATHING PATTERN. absent: Decreased Breath Sounds, Wheezes, Respiratory Distress - Cardiovascular Exam Cardiovascular Exam: RRR, +S1, +S2 - GI/Abdominal Exam GI & Abdominal Exam: Soft, Normal Bowel Sounds. absent: Distended, Tenderness - Extremities Exam Extremities Exam: Full ROM, Pedal Edema (2+ b/l ) Additional comments: RLE with scar s/p cellulitis - Back Exam Back Exam: NORMAL INSPECTION - Neurological Exam Neurological Exam: Alert, Awake, Oriented x3 - Psychiatric Exam Psychiatric exam: Normal Affect, Normal Mood - Skin Skin Exam: Normal Color, Warm Assessment and Plan - Assessment and Plan (Free Text) Assessment: 66 year old female with a past medical history significant for IDDM2, HTN, Atrial fibrillation on coumadin, abdominal hernia, previouse CVA (2013), HLD, and CAD who presents to the ED with shortness of breath and dyspnea on exertion. Patient was found to have a supratherapeutic INR as well as an elevated d-dimer in the ED. Despite elevated d-dimer, patient was not started on any anticoagulation due to supratherapeutic INR and risk of bleeding. She was also noted have to LLL infiltrate/pleural effusion on chest x-ray and found to be in atrial fibrillation on EKG. Plan: 1. LLL Infiltrate/Pleural Effusion with associated DUQUE - Chest CT W/O Contrast showed moderate vascular congestion. moderate sized b/l pleural effusions - Echo pending, should be done after discussion with pt earlier this morning - started back on Aztreoname and Zithromax per ID recs - blood cultures growing G+ cocci in 1 tube - procal low - Lasix switched from 40mg IVP Q12 to 40mg IVP daily - 2 view CXR tomorrow AM to evaluate treatment progress - patient might require thoracentesis if no improvement noted, worsened shortness of breath, fevers/chills; as of now, no intervention needed - Oxygen via NC at 2 L/min - Strict I/O and daily weight measurements - Pulmonology consulted, recs appreciated - ID consulted, recs appreciated - PT evaluation 2. Atrial Fibrillation, INR therapeutic - Found to have subtherapeutic INR - restart home coumadin 5mg daily - Daily PT/INR and aPTT - Cardiology consulted, recs appreciated 3. Anemia - feosol ordered per GI recs - Workup ordered - heme occult blood ordered - GI consulted, recs appreciated 4. History of HTN - Continue home Norvasc, Clonidine, Losartan and Metoprolol - Hydralazine PRN 5. History of DM2 - ISS - NPH 8u TID - Accuchecks ACHS - Carbohydrate consistent diet 6. History of CAD - Continue home Isosorbide Mononitrate 7. History of HLD - Continue home Lipitor 8. PPX GI Prophylaxis: Protonix DVT Prophylaxis: SCD's Patient was seen, examined and discussed with attending, Dr. Fer Rinaldi PGY1 Pager # [phone] <Lisa Monroe - Last Filed: 05/08/17 14:05> Objective - Vital Signs/Intake and Output Vital Signs (last 24 hours): Temp Pulse Resp BP Pulse Ox 98 F 70 18 146/61 99 05/08/17 12:00 05/08/17 12:00 05/08/17 12:00 05/08/17 12:00 05/08/17 06:00 - Medications Medications: Current Medications Amlodipine Besylate (Norvasc) 10 mg PO DAILY [facility] Last Admin: 05/08/17 09:05 Dose: 10 mg Atorvastatin Calcium (Lipitor) 40 mg PO QOTHERDAY [facility] Last Admin: 05/07/17 11:06 Dose: 40 mg Azithromycin (Zithromax) 500 mg PO DAILY [facility] PRN Reason: Protocol Clonidine HCl (Catapres) 0.3 mg PO TID [facility] Last Admin: 05/08/17 09:05 Dose: 0.3 mg Ferrous Sulfate (Feosol) 324 mg PO TID [facility] Last Admin: 05/08/17 10:52 Dose: 324 mg Furosemide (Lasix) 40 mg IVP DAILY [facility] Hydralazine HCl (Apresoline) 10 mg IVP Q4 PRN PRN Reason: Systolic Blood Pressure Aztreonam (Azactam 1 Gm) 100 mls @ 100 mls/hr IVPB Q8 [facility] PRN Reason: Protocol Insulin Human Regular (Humulin R Med) 0 units SC ACHS [facility] PRN Reason: Protocol Last Admin: 05/08/17 13:00 Dose: 1 units Isosorbide Mononitrate (Imdur Er) 30 mg PO 0600 [facility] Last Admin: 05/08/17 06:46 Dose: 30 mg Losartan Potassium (Cozaar) 100 mg PO DAILY [facility] Last Admin: 05/08/17 09:06 Dose: 100 mg Magnesium Oxide (Mag-Ox) 400 mg PO BID [facility] Last Admin: 05/08/17 09:05 Dose: 400 mg Metoprolol Tartrate (Lopressor) 50 mg PO TID [facility] Last Admin: 05/08/17 09:09 Dose: 50 mg Pantoprazole Sodium (Protonix Ec Tab) 40 mg PO 0600 [facility] Last Admin: 05/08/17 06:46 Dose: 40 mg Warfarin Sodium (Coumadin) 5 mg PO 1800 [facility] PRN Reason: Protocol - Labs Labs: 05/08/17 05:30 05/08/17 05:20 PT 20.4 SECONDS (9.4-12.5) H 05/08/17 05:30 INR 1.75 (0.93-1.08) H 05/08/17 05:30 APTT 46.0 Seconds (25.1-36.5) H 05/06/17 05:30 Attending/Attestation - Attestation I have personally seen and examined this patient.: Yes I have fully participated in the care of the patient.: Yes I have reviewed all pertinent clinical information, including history, physical exam and plan: Yes Notes (Text): 05/08/17 14:01 66 year old female iwth past medical history of afib on coumadin, hypertension, diabetes and CAD who presented with shortness of breath. She was found to have vascular congestion, bilateral pleural effusions and possible infiltrate on imaging. Continue with iv diuresis as per cardiology and antibiotics as per ID. Echocardiogram today is pending. Initially her coumadin was held due to supratherapeutic INR. Today level is 1.75 so her coumadin will be resumed. GI evaluation was requested for anemia. Will continue to monitor closely. She is started on iron supplementation. Lisa Monroe MD Hospitalist.
[2017-05-08] MEDS ORDERED: Aztreonam 1 Gm in NS 100mL 100 ML IVPB SCH (14:00)
--- NOTE | 2017-05-08 22:37 | CP.PCM.PN ---
Subjective - Date & Time of Evaluation Date of Evaluation: 05/08/17 Time of Evaluation: 22:32 - Subjective Subjective: Infectious Disease Follow Up: May 08, 2017 66 yo female with extensive medical history presenting with dyspnea on exertion while performing even daily activities. There is no symptoms on rest. She denies any other symptoms including fevers, chills, nausea, vomiting, diarrhea, headaches, dizziness, chest pain, abdominal pain, melena, hematuria, hematemesis , or hematochezia. She appears comfortable in bed at this time. Today, the patient states that she feels better. She states she is less short of breath and able to ambulate further compared to when she was admitted. She apparently was worried about her hospital costs as she had been refusing some necessary tests. Objective - Vital Signs/Intake and Output Vital Signs (last 24 hours): Temp Pulse Resp BP Pulse Ox 97.7 F 78 18 164/79 H 99 05/08/17 17:56 05/08/17 18:00 05/08/17 17:56 05/08/17 17:59 05/08/17 06:00 Intake and Output: 05/08/17 05/09/17 18:59 06:59 Intake Total 300 Output Total 1800 Balance -1500 - Medications Medications: Current Medications Amlodipine Besylate (Norvasc) 10 mg PO DAILY [facility] Last Admin: 05/08/17 09:05 Dose: 10 mg Atorvastatin Calcium (Lipitor) 40 mg PO QOTHERDAY [facility] Last Admin: 05/07/17 11:06 Dose: 40 mg Azithromycin (Zithromax) 500 mg PO DAILY [facility] PRN Reason: Protocol Last Admin: 05/08/17 15:38 Dose: 500 mg Clonidine HCl (Catapres) 0.3 mg PO TID [facility] Last Admin: 05/08/17 17:59 Dose: 0.3 mg Ferrous Sulfate (Feosol) 324 mg PO TID [facility] Last Admin: 05/08/17 17:58 Dose: 324 mg Furosemide (Lasix) 40 mg IVP DAILY [facility] Hydralazine HCl (Apresoline) 10 mg IVP Q4 PRN PRN Reason: Systolic Blood Pressure Aztreonam (Azactam 1 Gm) 100 mls @ 100 mls/hr IVPB Q8 [facility] PRN Reason: Protocol Insulin Human Regular (Humulin R Med) 0 units SC ACHS [facility] PRN Reason: Protocol Last Admin: 05/08/17 21:34 Dose: Not Given Isosorbide Mononitrate (Imdur Er) 30 mg PO 0600 [facility] Last Admin: 05/08/17 06:46 Dose: 30 mg Losartan Potassium (Cozaar) 100 mg PO DAILY [facility] Last Admin: 05/08/17 09:06 Dose: 100 mg Magnesium Oxide (Mag-Ox) 400 mg PO BID [facility] Last Admin: 05/08/17 17:59 Dose: 400 mg Metoprolol Tartrate (Lopressor) 50 mg PO TID [facility] Last Admin: 05/08/17 17:58 Dose: 50 mg Pantoprazole Sodium (Protonix Ec Tab) 40 mg PO 0600 [facility] Last Admin: 05/08/17 06:46 Dose: 40 mg Warfarin Sodium (Coumadin) 5 mg PO 1800 [facility] PRN Reason: Protocol Last Admin: 05/08/17 17:59 Dose: 5 mg - Labs Labs: 05/08/17 05:30 05/08/17 05:20 PT 20.4 SECONDS (9.4-12.5) H 05/08/17 05:30 INR 1.75 (0.93-1.08) H 05/08/17 05:30 APTT 46.0 Seconds (25.1-36.5) H 05/06/17 05:30 - Constitutional Appears: Non-toxic, No Acute Distress, Chronically Ill - Head Exam Head Exam: ATRAUMATIC, NORMOCEPHALIC - Eye Exam Eye Exam: EOMI, PERRL Pupil Exam: NORMAL ACCOMODATION, PERRL - ENT Exam ENT Exam: Mucous Membranes Moist, Normal External Ear Exam, TM's Normal Bilaterally - Neck Exam Neck Exam: Full ROM, Normal Inspection - Respiratory Exam Respiratory Exam: Decreased Breath Sounds, NORMAL BREATHING PATTERN. absent: Rales, Rhonchi, Wheezes Additional comments: improved left lower lobe rhonchi. - Cardiovascular Exam Cardiovascular Exam: Irregular Rhythm, +S1, +S2 - GI/Abdominal Exam GI & Abdominal Exam: Soft, Hernia, Normal Bowel Sounds. absent: Distended, Tenderness Additional comments: ventral hernia on right side of umbilicus. - Extremities Exam Extremities Exam: Full ROM, Normal Inspection - Neurological Exam Neurological Exam: Alert, Awake, CN II-XII Intact, Oriented x3 - Psychiatric Exam Psychiatric exam: Normal Affect, Normal Mood - Skin Skin Exam: Intact, Normal Color Assessment and Plan - Assessment and Plan (Free Text) Assessment: 66 yo female with dyspnea on exertion. Chest X-ray showing LLL infiltrate/ pleural effusion. Currently in atrial fibrillation. Patient with PCN allergy. On Aztreonam and Azithromycin. Procalcitonin was very low. Supportive care. Glez cultures pending. One bottle with gram positive cocci. Patient feeling better today. Less short of breath. She had been refusing some of the tests lately. Thank you for allowing me to participate in the care of the patient, we will follow with you.
[2017-05-08] MEDS: Aztreonam 1 Gm in NS 100mL 100 ML IVPB SCH (23:00)
[2017-05-09] MEDS: Aztreonam 1 Gm in NS 100mL 100 ML IVPB SCH (06:00)
[2017-05-09 06:34] VITALS: O2SAT 94
[2017-05-09 06:36] LABS: HEMOGLOBIN 9.6 g/dL (12.0-16.0); MEAN CELL VOLUME 73.5 fl (80.0-105.0); MEAN CORPUSCULAR HEMOGLOBIN 21.8 pg (25.0-35.0); MEAN CORPUSCULAR HGB CONC 29.6 g/dl (31.0-37.0); MEAN PLATELET VOLUME 9.3 fl (7.0-11.0); RBC 4.41 10^6/uL (3.5-6.1); RED CELL DISTRIBUTION WIDTH 17.8 % (11.5-14.5); WHITE BLOOD COUNT 6.5 10^3/ul (4.5-11.0)
[2017-05-09 06:56] LABS: INR 1.38 (0.93-1.08)
[2017-05-09 07:15] LABS: ALBUMIN 3.6 g/dL (3.0-4.8); CALCIUM 9.2 mg/dL (8.4-10.5); MAGNESIUM 1.9 mg/dL (1.7-2.2)
[2017-05-09] MEDS: Pantoprazole 40 mg EC Tab PO SCH (07:36)
[2017-05-09] MEDS: Insulin Reg-MEDIUM-Coverage SC SCH ×2 (07:38→12:27)
--- NOTE | 2017-05-09 08:26 | CP.PCM.PN ---
Subjective - Date & Time of Evaluation Date of Evaluation: 05/09/17 Time of Evaluation: 07:00 - Subjective Subjective: Stable on 2R. No SOB, CP.She is refusing an echocardiogram b/o insurance reasons. V/S noted. AF PE: Lungs: BS at bases Cor.: irreg S1S2 Abd.: non-tender Ext.: mild edema Neuro.: alert I/O = 500/1800 recorded Labs noted: INR= 1.38, Cr.= 1.3, Mg++= 1.9 BC x1 + GPC Objective - Vital Signs/Intake and Output Vital Signs (last 24 hours): Temp Pulse Resp BP Pulse Ox 97.2 F L 78 20 156/80 H 94 L 05/09/17 06:00 05/09/17 06:00 05/09/17 06:00 05/09/17 06:00 05/09/17 06:00 Intake and Output: 05/09/17 05/09/17 06:59 18:59 Intake Total 200 Balance 200 - Medications Medications: Current Medications Amlodipine Besylate (Norvasc) 10 mg PO DAILY [facility] Last Admin: 05/08/17 09:05 Dose: 10 mg Atorvastatin Calcium (Lipitor) 40 mg PO QOTHERDAY [facility] Last Admin: 05/07/17 11:06 Dose: 40 mg Azithromycin (Zithromax) 500 mg PO DAILY [facility] PRN Reason: Protocol Last Admin: 05/08/17 15:38 Dose: 500 mg Clonidine HCl (Catapres) 0.3 mg PO TID [facility] Last Admin: 05/08/17 17:59 Dose: 0.3 mg Ferrous Sulfate (Feosol) 324 mg PO TID [facility] Last Admin: 05/08/17 17:58 Dose: 324 mg Furosemide (Lasix) 40 mg IVP DAILY [facility] Hydralazine HCl (Apresoline) 10 mg IVP Q4 PRN PRN Reason: Systolic Blood Pressure Aztreonam (Azactam 1 Gm) 100 mls @ 100 mls/hr IVPB Q8 [facility] PRN Reason: Protocol Last Admin: 05/09/17 06:00 Dose: 100 mls/hr Insulin Human Regular (Humulin R Med) 0 units SC ACHS [facility] PRN Reason: Protocol Last Admin: 05/09/17 07:38 Dose: 1 units Isosorbide Mononitrate (Imdur Er) 30 mg PO 0600 [facility] Last Admin: 05/09/17 07:36 Dose: 30 mg Losartan Potassium (Cozaar) 100 mg PO DAILY [facility] Last Admin: 05/08/17 09:06 Dose: 100 mg Magnesium Oxide (Mag-Ox) 400 mg PO BID [facility] Last Admin: 05/08/17 17:59 Dose: 400 mg Metoprolol Tartrate (Lopressor) 50 mg PO TID [facility] Last Admin: 05/08/17 17:58 Dose: 50 mg Pantoprazole Sodium (Protonix Ec Tab) 40 mg PO 0600 [facility] Last Admin: 05/09/17 07:36 Dose: 40 mg Warfarin Sodium (Coumadin) 5 mg PO 1800 [facility] PRN Reason: Protocol Last Admin: 05/08/17 17:59 Dose: 5 mg - Labs Labs: 05/09/17 06:00 05/09/17 06:00 PT 16.0 SECONDS (9.4-12.5) H 05/09/17 06:00 INR 1.38 (0.93-1.08) H 05/09/17 06:00 APTT 46.0 Seconds (25.1-36.5) H 05/06/17 05:30 Assessment and Plan - Assessment and Plan (Free Text) Assessment: Dyspnea CHF/Pleural Effusions CAD/remote PCI AF HBP CVA Diabetes Obesity PN Cellulitis Plan: IV > PO Lasix Echo if she will agree, can be out-pt Warfarin 10 today As per ID, GI, Pulm.
[2017-05-09] MEDS: Magnesium Oxide 400 mg Tab UD PO SCH (09:09)
[2017-05-09] MEDS ORDERED: Magnesium Citrate Oral SOL (300 ml) PO ONE (09:43)
[2017-05-09] MEDS: Insulin Human NPH/Reg 70/30 Vial(3 ml) SC SCH ×2 (10:35→13:35)
--- NOTE | 2017-05-09 12:20 | RAD ---
HISTORY: evaluate for SOB COMPARISON: 05/05/2017 TECHNIQUE: Chest PA and lateral FINDINGS: LUNGS: No active pulmonary disease. PLEURA: Small pleural effusion on the left CARDIOVASCULAR: Normal. OSSEOUS STRUCTURES: No significant abnormalities. VISUALIZED UPPER ABDOMEN: Normal. OTHER FINDINGS: None. IMPRESSION: Small pleural effusion on the left
[2017-05-09 12:24] VITALS: BP 161/67; RESP 17; TEMP 97.8
--- NOTE | 2017-05-09 12:42 | PN ---
DATE: 05/09/2017 SUBJECTIVE: The patient is lying in bed comfortable. She denies any shortness of breath, chest pain, cough. She has not had a bowel movement in several days. She does have a history of chronic constipation. She denies any melena or rectal bleeding. MEDICATIONS: Currently, include hydralazine 10 mg IV q. 4 hours p.r.n., aztreonam 1 g IV q. 8 h., Catapres 0.3 mg p.o. t.i.d., warfarin 7.5 mg daily, losartan 100 mg daily, Feosol 324 mg three times a day, Isordil 30 mg daily, Lasix 40 mg IV daily, atorvastatin 40 mg daily, metoprolol 50 mg p.o. t.i.d., magnesium oxide 400 mg b.i.d., Norvasc 10 mg daily, pantoprazole 40 mg daily, Zithromax 500 mg p.o. daily. PHYSICAL EXAMINATION: VITAL SIGNS: Reveal temperature of 97.2, blood pressure 158/70, heart rate of 84. HEENT: Reveal sclerae to be white. Conjunctivae pale. NECK: Supple. CHEST: Reveal lungs to have basilar rales. HEART: Exam reveals a regular rate and rhythm. ABDOMEN: Obese, soft. She has a ventral hernia which is reducible. EXTREMITIES: Show chronic stasis changes of the lower extremities. LABORATORY DATA: Reveal white blood cell count 6.5, hemoglobin 9.6. Chemistries reveal BUN 33, creatinine 1.3. AST, ALT, alk phos were all normal. IMPRESSION: 1. Anemia most likely anemia of chronic disease. 2. Congestive heart failure. 3. Atrial fibrillation, on warfarin. 4. Chronic kidney disease. 5. Constipation. RECOMMENDATIONS: 1. We will give the patient Colace 100 mg three times a day and citrate of magnesia 5 ounces one dose. 2. Await stool guaiacs. 3. Elective endoscopy and possible colonoscopy. Norm Gaxiola MD
--- NOTE | 2017-05-09 13:11 | CP.PCM.DIS ---
<Charlie Rinaldi - Last Filed: 05/09/17 14:45> Provider - Provider Date of Admission: 05/05/17 19:28 Attending physician: Moris Garrido MD Primary care physician: Anastasiya Hall MD Time Spent in preparation of Discharge (in minutes): 40 Diagnosis - Discharge Diagnosis (1) CHF exacerbation Status: Acute (2) Pleural effusion Status: Acute (3) Elevated INR Status: Acute (4) Elevated d-dimer Status: Acute (5) CVA (cerebral vascular accident) Status: Chronic (6) HTN (hypertension) Status: Chronic (7) HLD (hyperlipidemia) Status: Chronic (8) DM2 (diabetes mellitus, type 2) Status: Chronic (9) Atrial fibrillation Status: Chronic Hospital Course - Lab Results Lab Results: Most Recent Lab Values WBC 6.5 10^3/ul (4.5-11.0) 05/09/17 06:00 RBC 4.41 10^6/uL (3.5-6.1) 05/09/17 06:00 Hgb 9.6 g/dL (12.0-16.0) L 05/09/17 06:00 Hct 32.4 % (36.0-48.0) L 05/09/17 06:00 MCV 73.5 fl (80.0-105.0) L 05/09/17 06:00 MCH 21.8 pg (25.0-35.0) L 05/09/17 06:00 MCHC 29.6 g/dl (31.0-37.0) L 05/09/17 06:00 RDW 17.8 % (11.5-14.5) H 05/09/17 06:00 Plt Count 208 10^3/uL (120.0-450.0) 05/09/17 06:00 MPV 9.3 fl (7.0-11.0) 05/09/17 06:00 Gran % 73.9 % (50.0-68.0) H 05/06/17 05:30 Lymph % (Auto) 14.6 % (22.0-35.0) L 05/06/17 05:30 [place] % (Auto) 7.4 % (1.0-6.0) H 05/06/17 05:30 Eos % (Auto) 2.8 % (1.5-5.0) 05/06/17 05:30 Baso % (Auto) 1.3 % (0.0-3.0) 05/06/17 05:30 Gran # 5.10 (1.4-6.5) 05/06/17 05:30 Lymph # 1.0 (1.2-3.4) L 05/06/17 05:30 [place] # 0.5 (0.1-0.6) 05/06/17 05:30 Eos # 0.2 (0.0-0.7) 05/06/17 05:30 Baso # 0.09 K/mm3 (0.0-2.0) 05/06/17 05:30 PT 16.0 SECONDS (9.4-12.5) H 05/09/17 06:00 INR 1.38 (0.93-1.08) H 05/09/17 06:00 APTT 46.0 Seconds (25.1-36.5) H 05/06/17 05:30 D-Dimer, Quantitative 1266 ng/mL (0-243) H 05/05/17 16:45 Sodium 145 mmol/L (132-148) 05/09/17 06:00 Potassium 4.7 mmol/L (3.6-5.0) 05/09/17 06:00 Chloride 108 mmol/L (98-107) H 05/09/17 06:00 Carbon Dioxide 25 mmol/L (21-33) 05/09/17 06:00 Anion Gap 16 (10-20) 05/09/17 06:00 BUN 33 mg/dL (7-21) H 05/09/17 06:00 Creatinine 1.3 mg/dl (0.7-1.2) H 05/09/17 06:00 Est GFR ( Amer) 50 05/09/17 06:00 Est GFR (Non-Af Amer) 41 05/09/17 06:00 POC Glucose (mg/dL) 174 mg/dL (65-110) H 05/09/17 07:30 Random Glucose 159 mg/dL (70-110) H 05/09/17 06:00 Calcium 9.2 mg/dL (8.4-10.5) 05/09/17 06:00 Magnesium 1.9 mg/dL (1.7-2.2) 05/09/17 06:00 Iron 28 ug/dL (45-180) L 05/06/17 05:30 TIBC 348 ug/dL (265-497) 05/06/17 05:30 % Saturation 8 % (20-55) L 05/06/17 05:30 Transferrin 263.95 mg/dL (206-381) 05/06/17 05:30 Ferritin 23.9 ng/mL 05/06/17 05:30 Total Bilirubin 0.7 mg/dL (0.2-1.3) 05/09/17 06:00 AST 27 U/L (14-36) 05/09/17 06:00 ALT 19 U/L (7-56) 05/09/17 06:00 Alkaline Phosphatase 97 U/L (38-126) 05/09/17 06:00 Lactate Dehydrogenase 797 U/L (333-699) H 05/05/17 16:45 Total Creatine Kinase 57 U/L (35-230) 05/05/17 16:45 Troponin I 0.02 ng/mL D 05/06/17 05:30 NT-Pro-B Natriuret Pep 6670 pg/mL (0-450) H 05/05/17 16:45 Total Protein 7.1 g/dL (5.8-8.3) 05/09/17 06:00 Albumin 3.6 g/dL (3.0-4.8) 05/09/17 06:00 Globulin 3.5 gm/dL 05/09/17 06:00 Albumin/Globulin Ratio 1.0 (1.1-1.8) L 05/09/17 06:00 Vitamin B12 301 pg/mL (239-931) 05/06/17 05:30 RBC Folate 1208 ng/mL RBC (>280) 05/06/17 05:30 Procalcitonin < 0.05 NG/ML (0.19-0.49) L 05/06/17 02:25 Free T4 1.48 ng/dL (0.78-2.19) 05/06/17 02:25 TSH 3rd Generation 2.83 mIU/mL (0.46-4.68) 05/06/17 02:25 Urine Color Yellow (YELLOW) 05/05/17 16:18 Urine Appearance Sl cloudy (CLEAR) 05/05/17 16:18 Urine pH 6.0 (4.7-8.0) 05/05/17 16:18 Ur Specific [place] >= 1.030 (1.005-1.035) 05/05/17 16:18 Urine Protein >=300 mg/dL (<30 mg/dL) H 05/05/17 16:18 Urine Glucose (UA) 100 mg/dL (NEGATIVE) H 05/05/17 16:18 Urine Ketones Negative mg/dL (NEGATIVE) 05/05/17 16:18 Urine Blood Trace-intact (NEGATIVE) H 05/05/17 16:18 Urine Nitrate Negative (NEGATIVE) 05/05/17 16:18 Urine Bilirubin Negative (NEGATIVE) 05/05/17 16:18 Urine Urobilinogen 0.2 E.U./dL (<1 E.U./dL) 05/05/17 16:18 Ur Leukocyte Esterase Negative Gracy/uL (NEGATIVE) 05/05/17 16:18 Urine RBC Negative /hpf (0-2) 05/05/17 16:18 Urine WBC 0 - 2 /hpf (0-6) 05/05/17 16:18 Ur Epithelial Cells 6 - 8 /hpf (0-5) 05/05/17 16:18 Urine Bacteria Trace (NEG) 05/05/17 16:18 Hyaline Casts 0 - 2 /hpf 05/05/17 16:18 Fine Granular Casts 0 - 2 /hpf (0-2) 05/05/17 16:18 MACHELLE Screen Negative (Negative) 05/06/17 02:25 - Hospital Course Hospital Course: Mrs. Isbell is a 66 year old female with a past medical history significant for IDDM2, HTN, Atrial fibrillation on coumadin, abdominal hernia, previouse CVA ( 2013), HLD, and CAD who presents to the ED with shortness of breath and dyspnea on exertion x1 week. CXR: LLL infiltrate/pleural effusion and EKG showed a-fib. INR was supratherapeutic in ED, and coumadin was held despite elevated d-dimer due to risk of bleeding. BNP was elevated and procal was low. CT showed moderate vascular congestion and moderate size bilateral pleural effusions. Cardio, ID, pulm and GI were consulted for the patient and recs were reviewed. Patient was started on lasix daily, which improved her shortness of breath. PT also worked with the patient on mobility and strengthening exercises. GI was consulted for anemia and but likely anemia is 2/2 chronic disease, and GI recommended outpatient follow up with no iron supplementation. ID had patient on antibiotics during hospital stay which improved her condition but made no recommendations for antibiotics on discharge. 1 vial of blood culture was positive but likely contaminated; ID aware and made no recommendations for more cultures. Patient improved significantly and offered no complaint at time of discharge. SW was involved in the safe discharge and discharge planning for the patient. Patient is medically stable for discharge and will follow up with her PMD, Cardio and GI as outpatient. She is prescribed Lasix and educated about limiting water and salt intake, healthy lifestyle modifications and checking her daily weights. Discharge Exam - Additional Findings Additional findings: - Constitutional Appears: Well, Non-toxic, No Acute Distress - Head Exam Head Exam: ATRAUMATIC, NORMAL INSPECTION, NORMOCEPHALIC - Eye Exam Eye Exam: EOMI, Normal appearance, PERRL - ENT Exam ENT Exam: Mucous Membranes Moist, Normal Exam - Neck Exam Neck Exam: Full ROM, Normal Inspection - Respiratory Exam Respiratory Exam: Rales (mild, bibasilar), NORMAL BREATHING PATTERN. absent: Decreased Breath Sounds, Wheezes, Respiratory Distress - Cardiovascular Exam Cardiovascular Exam: RRR, +S1, +S2 - GI/Abdominal Exam GI & Abdominal Exam: Soft, Normal Bowel Sounds. absent: Distended, Tenderness - Extremities Exam Extremities Exam: Full ROM, Pedal Edema (2+ b/l ) Additional comments: RLE with scar s/p cellulitis - Back Exam Back Exam: NORMAL INSPECTION - Neurological Exam Neurological Exam: Alert, Awake, Oriented x3 - Psychiatric Exam Psychiatric exam: Normal Affect, Normal Mood - Skin Skin Exam: Normal Color, Warm Discharge Plan - Discharge Medications Prescriptions: Furosemide [Lasix] 40 mg PO DAILY #30 tab Warfarin [Coumadin] 5 mg PO 1800 #15 tab - Follow Up Plan Condition: FAIR Disposition: HOME/ ROUTINE Instructions: Heart Failure (DC), Pulmonary Edema (DC) Additional Instructions: - please continue taking your Lasix 40mg by mouth daily. - please continue your home medications - please follow up with your Primary Doctor for INR check for your Coumadin - please follow up with GI MD Dr. Gaxiola for your anemia and possible colonoscopy - please follow up with Cardiology Dr. Coronado - you will be visited by a visiting nurse who will assist you at home - please continue a low salt diet, daily weights for monitoring of heart failure ; if you experience shortness of breath or chest pain, please return to ER for evaluation Referrals: Norm Gaxiola MD [Staff Provider] - Mauro Dowell MD [Staff Provider] - Anastasiya Hall MD [Primary Care Provider] - <Moris Garrido - Last Filed: 05/09/17 16:46> Provider - Provider Date of Admission: 05/05/17 19:28 Attending physician: Moris Garrido MD Primary care physician: Anastasiya Hall MD Hospital Course - Lab Results Lab Results: Most Recent Lab Values WBC 6.5 10^3/ul (4.5-11.0) 05/09/17 06:00 RBC 4.41 10^6/uL (3.5-6.1) 05/09/17 06:00 Hgb 9.6 g/dL (12.0-16.0) L 05/09/17 06:00 Hct 32.4 % (36.0-48.0) L 05/09/17 06:00 MCV 73.5 fl (80.0-105.0) L 05/09/17 06:00 MCH 21.8 pg (25.0-35.0) L 05/09/17 06:00 MCHC 29.6 g/dl (31.0-37.0) L 05/09/17 06:00 RDW 17.8 % (11.5-14.5) H 05/09/17 06:00 Plt Count 208 10^3/uL (120.0-450.0) 05/09/17 06:00 MPV 9.3 fl (7.0-11.0) 05/09/17 06:00 Gran % 73.9 % (50.0-68.0) H 05/06/17 05:30 Lymph % (Auto) 14.6 % (22.0-35.0) L 05/06/17 05:30 [place] % (Auto) 7.4 % (1.0-6.0) H 05/06/17 05:30 Eos % (Auto) 2.8 % (1.5-5.0) 05/06/17 05:30 Baso % (Auto) 1.3 % (0.0-3.0) 05/06/17 05:30 Gran # 5.10 (1.4-6.5) 05/06/17 05:30 Lymph # 1.0 (1.2-3.4) L 05/06/17 05:30 [place] # 0.5 (0.1-0.6) 05/06/17 05:30 Eos # 0.2 (0.0-0.7) 05/06/17 05:30 Baso # 0.09 K/mm3 (0.0-2.0) 05/06/17 05:30 PT 16.0 SECONDS (9.4-12.5) H 05/09/17 06:00 INR 1.38 (0.93-1.08) H 05/09/17 06:00 APTT 46.0 Seconds (25.1-36.5) H 05/06/17 05:30 D-Dimer, Quantitative 1266 ng/mL (0-243) H 05/05/17 16:45 Sodium 145 mmol/L (132-148) 05/09/17 06:00 Potassium 4.7 mmol/L (3.6-5.0) 05/09/17 06:00 Chloride 108 mmol/L (98-107) H 05/09/17 06:00 Carbon Dioxide 25 mmol/L (21-33) 05/09/17 06:00 Anion Gap 16 (10-20) 05/09/17 06:00 BUN 33 mg/dL (7-21) H 05/09/17 06:00 Creatinine 1.3 mg/dl (0.7-1.2) H 05/09/17 06:00 Est GFR ( Amer) 50 05/09/17 06:00 Est GFR (Non-Af Amer) 41 05/09/17 06:00 POC Glucose (mg/dL) 205 mg/dL (65-110) H 05/09/17 12:22 Random Glucose 159 mg/dL (70-110) H 05/09/17 06:00 Calcium 9.2 mg/dL (8.4-10.5) 05/09/17 06:00 Magnesium 1.9 mg/dL (1.7-2.2) 05/09/17 06:00 Iron 28 ug/dL (45-180) L 05/06/17 05:30 TIBC 348 ug/dL (265-497) 05/06/17 05:30 % Saturation 8 % (20-55) L 05/06/17 05:30 Transferrin 263.95 mg/dL (206-381) 05/06/17 05:30 Ferritin 23.9 ng/mL 05/06/17 05:30 Total Bilirubin 0.7 mg/dL (0.2-1.3) 05/09/17 06:00 AST 27 U/L (14-36) 05/09/17 06:00 ALT 19 U/L (7-56) 05/09/17 06:00 Alkaline Phosphatase 97 U/L (38-126) 05/09/17 06:00 Lactate Dehydrogenase 797 U/L (333-699) H 05/05/17 16:45 Total Creatine Kinase 57 U/L (35-230) 05/05/17 16:45 Troponin I 0.02 ng/mL D 05/06/17 05:30 NT-Pro-B Natriuret Pep 6670 pg/mL (0-450) H 05/05/17 16:45 Total Protein 7.1 g/dL (5.8-8.3) 05/09/17 06:00 Albumin 3.6 g/dL (3.0-4.8) 05/09/17 06:00 Globulin 3.5 gm/dL 05/09/17 06:00 Albumin/Globulin Ratio 1.0 (1.1-1.8) L 05/09/17 06:00 Vitamin B12 301 pg/mL (239-931) 05/06/17 05:30 RBC Folate 1208 ng/mL RBC (>280) 05/06/17 05:30 Procalcitonin < 0.05 NG/ML (0.19-0.49) L 05/06/17 02:25 Free T4 1.48 ng/dL (0.78-2.19) 05/06/17 02:25 TSH 3rd Generation 2.83 mIU/mL (0.46-4.68) 05/06/17 02:25 Urine Color Yellow (YELLOW) 05/05/17 16:18 Urine Appearance Sl cloudy (CLEAR) 05/05/17 16:18 Urine pH 6.0 (4.7-8.0) 05/05/17 16:18 Ur Specific [place] >= 1.030 (1.005-1.035) 05/05/17 16:18 Urine Protein >=300 mg/dL (<30 mg/dL) H 05/05/17 16:18 Urine Glucose (UA) 100 mg/dL (NEGATIVE) H 05/05/17 16:18 Urine Ketones Negative mg/dL (NEGATIVE) 05/05/17 16:18 Urine Blood Trace-intact (NEGATIVE) H 05/05/17 16:18 Urine Nitrate Negative (NEGATIVE) 05/05/17 16:18 Urine Bilirubin Negative (NEGATIVE) 05/05/17 16:18 Urine Urobilinogen 0.2 E.U./dL (<1 E.U./dL) 05/05/17 16:18 Ur Leukocyte Esterase Negative Gracy/uL (NEGATIVE) 05/05/17 16:18 Urine RBC Negative /hpf (0-2) 05/05/17 16:18 Urine WBC 0 - 2 /hpf (0-6) 05/05/17 16:18 Ur Epithelial Cells 6 - 8 /hpf (0-5) 05/05/17 16:18 Urine Bacteria Trace (NEG) 05/05/17 16:18 Hyaline Casts 0 - 2 /hpf 05/05/17 16:18 Fine Granular Casts 0 - 2 /hpf (0-2) 05/05/17 16:18 MACHELLE Screen Negative (Negative) 05/06/17 02:25 Attending/Attestation - Attestation I have personally seen and examined this patient.: Yes I have fully participated in the care of the patient.: Yes I have reviewed all pertinent clinical information, including history, physical exam and plan: Yes Notes (Text): 05/09/17 16:44 Attending note; Patient seen and examined with resident. Patient is a 66 year old female with past medical history of afib on coumadin, hypertension, diabetes and coronary artery disease who presented with shortness of breath. She was found to have vascular congestion, bilateral pleural effusions and possible infiltrate on imaging. treated with IV Lasix. Patient diuresed well .shortness of breath improved .weight improved .dietary education given . Echocardiogram done .results pending. Patient will follow-up with cardiology as outpatient . Initially her coumadin was held due to supratherapeutic INR. Today level is 1.75 so her coumadin will be resumed. Anemia ; patient was evaluated by GI Dr. Gaxiola . patient needs outpatient elective EGD and colonoscopy. patient will be discharged home today. Follow-up with PMD
[2017-05-09 13:39] VITALS: PULSE 80
--- NOTE | 2017-05-09 16:04 | CARD ---
APPROVED REPORT EXAM: Two-dimensional and M-mode echocardiogram with Doppler and color Doppler. INDICATION Dyspnea Congestive Heart Failure 2D DIMENSIONS Left Atrium (2D)5.3 (1.6-4.0cm)IVSd1.3 (0.7-1.1cm) LVDd5.0 (3.9-5.9cm)PWd1.2 (0.7-1.1cm) LVDs3.4 (2.5-4.0cm)FS (%) 30.8 % LVEF (%)58.3 (>50%) M-Mode DIMENSIONS Aortic Root2.70 (2.2-3.7cm)Aortic Cusp Exc.1.50 (1.5-2.0cm) Aortic Valve AoV Peak Eaznlxuy144.0cm/Jerod Peak GR.14mmHg Mitral Valve MV [id number]/A ratio0.0MVA (PHT)2.37cm2 TDI E/Lateral E'0.0E/Medial E'0.0 Pulmonary Valve PV Peak Hijqynev93.9cm/sPV Peak Grad.3mmHg Tricuspid Valve TR Peak [id number]/sRAP [id number] Peak Gr.62mmHg [id number] LEFT VENTRICLE The left ventricle is normal size. There is mild concentric left ventricular hypertrophy. The left ventricular function is normal. The left ventricular ejection fraction is within the normal range. There is mild hypokinesis of the apical septal wall. RIGHT VENTRICLE The right ventricle is normal size. The right ventricular systolic function is normal. ATRIA The left atrium is moderately dilated. The right atrium is mildly dilated. The interatrial septum is intact with no evidence for an atrial septal defect. AORTIC VALVE The aortic valve is mildly thickened. No aortic regurgitation is present. There is no aortic valvular stenosis. MITRAL VALVE The mitral valve leaflets are thickened and calcified. Mitral regurgitation is moderate. There is no mitral valve stenosis. TRICUSPID VALVE The tricuspid valve is normal in structure. There is moderate tricuspid regurgitation. PULMONIC VALVE The pulmonary valve is normal in structure. GREAT VESSELS The aortic root is normal in size. The IVC is normal in size and collapses >50% with inspiration. PERICARDIAL EFFUSION There is moderate left pleural effusion. There is no pericardial effusion. <Conclusion> Biatrial enlargement. Normal LV size. Mild concentric LVH. Mildly reduced LV sysotlic functin with mild anteroapical hypokinesis. Moderate MR. Moderate TR.
--- NOTE | 2017-05-09 19:06 | CP.PCM.PN ---
Subjective - Date & Time of Evaluation Date of Evaluation: 05/09/17 Time of Evaluation: 13:00 - Subjective Subjective: Infectious Disease Follow Up: May 09, 2017 66 yo female with extensive medical history presenting with dyspnea on exertion while performing even daily activities. There is no symptoms on rest. She denies any other symptoms including fevers, chills, nausea, vomiting, diarrhea, headaches, dizziness, chest pain, abdominal pain, melena, hematuria, hematemesis , or hematochezia. She appears comfortable in bed at this time. Today, the patient states that she feels better. She states she is less short of breath and able to ambulate further compared to when she was admitted. She apparently was worried about her hospital costs as she had been refusing some necessary tests. Objective - Vital Signs/Intake and Output Vital Signs (last 24 hours): Temp Pulse Resp BP Pulse Ox 97.8 F 80 17 161/67 H 94 L 05/09/17 12:00 05/09/17 13:36 05/09/17 12:00 05/09/17 13:36 05/09/17 06:00 - Labs Labs: 05/09/17 06:00 05/09/17 06:00 PT 16.0 SECONDS (9.4-12.5) H 05/09/17 06:00 INR 1.38 (0.93-1.08) H 05/09/17 06:00 APTT 46.0 Seconds (25.1-36.5) H 05/06/17 05:30 - Constitutional Appears: Non-toxic, No Acute Distress, Chronically Ill - Head Exam Head Exam: ATRAUMATIC, NORMOCEPHALIC - Eye Exam Eye Exam: EOMI, PERRL Pupil Exam: NORMAL ACCOMODATION, PERRL - ENT Exam ENT Exam: Mucous Membranes Moist, Normal External Ear Exam, TM's Normal Bilaterally - Neck Exam Neck Exam: Full ROM, Normal Inspection - Respiratory Exam Respiratory Exam: Decreased Breath Sounds, NORMAL BREATHING PATTERN. absent: Rales, Rhonchi, Wheezes Additional comments: improved left lower lobe rhonchi. - Cardiovascular Exam Cardiovascular Exam: Irregular Rhythm, +S1, +S2 - GI/Abdominal Exam GI & Abdominal Exam: Soft, Hernia, Normal Bowel Sounds. absent: Distended, Tenderness Additional comments: ventral hernia on right side of umbilicus. - Extremities Exam Extremities Exam: Full ROM, Normal Inspection - Neurological Exam Neurological Exam: Alert, Awake, CN II-XII Intact, Oriented x3 - Psychiatric Exam Psychiatric exam: Normal Affect, Normal Mood - Skin Skin Exam: Intact, Normal Color Assessment and Plan - Assessment and Plan (Free Text) Assessment: 66 yo female with dyspnea on exertion. Chest X-ray showing LLL infiltrate/ pleural effusion. Currently in atrial fibrillation. Patient with PCN allergy. On Aztreonam and Azithromycin. Procalcitonin was very low. Supportive care. Glez cultures pending. One bottle with gram positive cocci. Appears to be coagulase negative staph. Most likely contaminant. Patient feeling better today. Less short of breath. She had been refusing some of the tests lately. Thank you for allowing me to participate in the care of the patient, we will follow with you.
== END 2017-05-09 14:46 | disposition home or self-care (01) | DRG 291 ==
LOC: ED 13:58 → ERH 19:28 → 2RSO 21:29
PROVIDERS: ADMIT Internal Medicine; ATTEND Internal Medicine
DX: I13.0 Hypertensive heart and chronic kidney disease with heart failure and stage 1 through stage 4 chronic kidney disease, or unspecified chronic kidney disease (principal); I50.43 Acute on chronic combined systolic (congestive) and diastolic (congestive) heart failure; E11.22 Type 2 diabetes mellitus with diabetic chronic kidney disease; E11.42 Type 2 diabetes mellitus with diabetic polyneuropathy; I69.354 Hemiplegia and hemiparesis following cerebral infarction affecting left non-dominant side; L03.115 Cellulitis of right lower limb; D63.8 Anemia in other chronic diseases classified elsewhere; E11.59 Type 2 diabetes mellitus with other circulatory complications; E66.9 Obesity, unspecified; E78.5 Hyperlipidemia, unspecified; I25.10 Atherosclerotic heart disease of native coronary artery without angina pectoris; I48.2 Chronic atrial fibrillation; I87.2 Venous insufficiency (chronic) (peripheral); I87.8 Other specified disorders of veins; K59.00 Constipation, unspecified; N18.9 Chronic kidney disease, unspecified; R79.1 Abnormal coagulation profile; Z79.01 Long term (current) use of anticoagulants; Z79.4 Long term (current) use of insulin; Z79.899 Other long term (current) drug therapy; Z87.891 Personal history of nicotine dependence; Z88.0 Allergy status to penicillin; Z95.5 Presence of coronary angioplasty implant and graft; M19.90 Unspecified osteoarthritis, unspecified site; Z87.892 Personal history of anaphylaxis; Z88.5 Allergy status to narcotic agent; Z88.8 Allergy status to other drugs, medicaments and biological substances; Z91.018 Allergy to other foods; R40.2412 Glasgow coma scale score 13-15, at arrival to emergency department; Z68.37 Body mass index [BMI] 37.0-37.9, adult

== ENCOUNTER 2017-07-18 11:40 | Inpatient (IN) | payer MEDICARE, OTHER ==
[2017-07-18 11:40] VITALS: BMI 36.8
[2017-07-18] MEDS ORDERED: Ipratropium 0.02% Inhal Soln (0.5 mg/2.5 ml) UD IH STA (11:48)
--- NOTE | 2017-07-18 11:53 | ED PDOC ---
Arrival/HPI - General Chief Complaint: Shortness Of Breath Time Seen by Provider: 07/18/17 11:43 Historian: Patient - History of Present Illness Narrative History of Present Illness (Text): 07/18/17 11:45 pt p/w + 1 week onset of progressively worsening sob, today was the worse; pt states exertion causes her to become more sob; pt states similiar symptoms recently and she needed to be hospitalized; pt states + easily fatigued, severe weakness, no fever/chills/sweats, no cp, + occasional wheezing, no palpitations , no abd pain, no n/v, no numbness/tingling, no urinary/bowel changes, no gross bleeding noted; no rashes noted; pt denied LOC, ? lightheadedness/dizziness; pt is seen her PCP today and was instructed to come to ED for further eval/exam/ treatment; pt's without other complaints PCP: DR Angel? [facility] Time/Duration: 1 week Symptom Onset: Gradual Symptom Course: Worsening Activities at Onset: Rest Context: Exertion, Home Past Medical History - Provider Review Nursing Documentation Reviewed: Yes - Travel History Have you recently traveled outside [place] w/in the past 3 mons?: No - Past History Past History: No Previous - Infectious Disease Hx of Infectious Diseases: None - Tetanus Immunization Tetanus Immunization: Unknown - Reproductive Menopause: Yes Currently : No - Cardiac Hx Cardiac Disorders: Yes Hx Atrial Fibrillation: Yes Hx Hypertension: Yes Other/Comment: stents placed in heart, 2 - Pulmonary Hx Respiratory Disorders: No - Neurological HX Cerebrovascular Accident: Yes ((Residual L-sided weakness)) - HEENT Hx HEENT Disorder: No - Renal Hx Renal Disorder: No - Endocrine/Metabolic Hx Endocrine Disorders: Yes Hx Diabetes Mellitus Type 2: Yes - Hematological/Oncological Hx Blood Disorders: Yes Hx Anemia: Yes Hx Blood Transfusions: No - Integumentary Hx Dermatological Disorder: No - Musculoskeletal/Rheumatological Hx Arthritis: Yes - Gastrointestinal Hx Gastrointestinal Disorders: Yes Other/Comment: Increased Gas problems in abd since Stroke last year - Genitourinary/Gynecological Hx Genitourinary Disorders: No - Psychiatric Hx Psychophysiologic Disorder: No Hx Substance Use: No - Surgical History Hx Cardiac Catheterization: Yes Hx Coronary Stent: Yes (x2) Other/Comment: right leg r/t cellulitis 2015 - Anesthesia Hx Anesthesia: Yes Hx Anesthesia Reactions: No - Suicidal Assessment Feels Threatened In Home Enviroment: No Family/Social History - Physician Review Nursing Documentation Reviewed: Yes Family/Social History: No Known Family HX Smoking Status: Former Smoker Hx Alcohol Use: No Hx Substance Use: No Hx Substance Use Treatment: No Allergies/Home Meds Allergies/Adverse Reactions: Allergies codeine Allergy (Verified 07/18/17 11:45) SHORTNESS OF BREATH Penicillins Allergy (Verified 07/18/17 11:45) ANAPHYLAXIS clopidogrel Adverse Reaction (Verified 07/18/17 11:45) SHORTNESS OF BREATH peaches Allergy (Severe, Uncoded 07/18/17 11:45) REDNESS nectarines Allergy (Mild, Uncoded 07/18/17 11:45) SHORTNESS OF BREATH Home Medications: Home Meds Medication Instructions Recorded Confirmed Atorvastatin [Lipitor] 40 mg PO QOTHERDAY 06/15/15 07/18/17 GlipiZIDE [Glucotrol] 10 mg PO DAILY 06/15/15 07/18/17 Valsartan [Diovan] 160 mg PO DAILY 06/15/15 07/18/17 amLODIPine [Norvasc] 10 mg PO DAILY 06/15/15 07/18/17 Cholecalciferol [Vitamin D 1000 IU] 5,000 iu PO QWK 01/30/17 07/18/17 Meclizine [Meclizine*] 25 mg PO TID PRN 01/30/17 07/18/17 Metoprolol Tartrate [Lopressor] 50 mg PO TID 01/30/17 07/18/17 cloNIDine [Catapres] 0.3 mg PO TID 01/30/17 07/18/17 Insulin Human (NPH)/Regular 8 units SC TID 05/05/17 07/18/17 [Novolin 70/30 (70/30 units/ml) 10 ml] Review of Systems - Review of Systems Constitutional: Fatigue Eyes: Normal ENT: Normal Respiratory: SOB, Wheezing. absent: Cough Cardiovascular: Normal. absent: Chest Pain Gastrointestinal: Normal Genitourinary Female: Normal Musculoskeletal: Normal Skin: Normal Neurological: Normal Endocrine: Normal Hemo/Lymphatic: Normal Psychiatric: Normal Physical Exam Vital Signs Reviewed: Yes (hypoxia) Vital Signs Temp Pulse Resp BP Pulse Ox 07/18/17 13:17 77 18 142/58 L 87 L 07/18/17 12:12 153/73 H 90 L 07/18/17 11:50 19 07/18/17 11:40 97.8 F 77 18 153/111 H 86 L Temperature: Afebrile Blood Pressure: Hypertensive Pulse: Regular Respiratory Rate: Tachypneic Appearance: Positive for: Well-Appearing, Uncomfortable, Other (uncomfortable, fatigued appearing, resting in bed, alert/awake, GCS = 15, oriented x 3, cooperative) Pain Distress: None Mental Status: Positive for: Alert and Oriented X 3 - Systems Exam Head: Present: Atraumatic, Normocephalic Pupils: Present: PERRL, Other (wearing eyeglasses, no nystagmus, no photophobia , sclera anicteric) Extroacular Muscles: Present: EOMI Conjunctiva: Present: Normal Ears: Present: Normal Mouth: Present: Normal Teeth, Other (mild dry oral mucosa; poor dentitions) Pharnyx: Present: Normal Nose (External): Present: Atraumatic Nose (Internal): Present: Normal Inspection Neck: Present: Normal Range of Motion, Trachea Midline, Other (intact ROM, no midline tenderness, no nuchal rigidity, no menigneal signs). No: MIDLINE TENDERNESS, JVD Respiratory/Chest: Present: Other (coarse basiliar breath sounds, faint wheezing noted right > left; no rales/rhonchi, mild tachypenia, no accessory muscle use noted, no belly retractions) Cardiovascular: Present: Normal S1, S2, Irregular Rhythm, Other (distant heart sound is noted, no rub). No: Murmurs, Tachycardic, Bradycardic Abdomen: Present: Normal Bowel Sounds, Other (well nourished/obese female, no focal tenderness, no roman's sign, no mcburney's point tenderness, no masses/ rebound/guarding/rigidity) Back: Present: Normal Inspection. No: CVA Tenderness, Midline Tenderness Upper Extremity: Present: Normal Inspection, Normal ROM, NORMAL PULSES, Neurovascularly Intact, Capillary Refill < 2s Lower Extremity: Present: Normal Inspection, Edema, NORMAL PULSES, Normal ROM, Capillary Refill < 2 s, Other (+ pitting edema b/l +2-3/5 up to proximal knee; left leg more swollen than right; NO gross tenderness, no dionicio's sign noted b/l ; strength 5/5 grossly intact in all limbs). No: CALF TENDERNESS, Dionicio's Sign Neurological: Present: GCS=15, CN II-XII Intact, Speech Normal Skin: Present: Warm, Dry, Other (mild pallor, cap refill < 1 sec, no ulcerations , no petechiae) Psychiatric: Present: Alert, Oriented x 3 Medical Decision Making ED Course and Treatment: 07/18/17 11:50 Impression: worsening sob, exertional sob i have consider all the differential diagnosis regarding pt's chief medical complaints/clinical findings, including but are not limited to: worsening sob, exertional sob A/P: worsening sob, exertional sob - labs - iv - acs eval - type and screen - xray - observe - supportive care 07/18/17 12:[address] Garrido, hospitalist partition setter, who stated that patient was admitted to Dr. Laws in the past. Requests to consult Dr. Laws. 07/18/17 12:[address] Laws, who was made aware of patient's ED medical presentation. Dr. Laws agrees with txt/mgt plan and to admit patient to the hospital for further evaluation. Will consult costume design teacher, Dr. Cade/ [place]. 07/18/17 13:25 pt is currently chest pain free pt is made aware of her medical results agrees with admission Re-evaluation Time: 12:08 Reassessment Condition: Improving,but remains with symptoms - Critical Care Critical Care Minutes: 45 minutes Critical Care Time: Excluding Proc Time Narrative Critical Care (Text): 07/18/17 13:28 critical care time: 45min, excluding procedure time, excluding time teaching residents/students/mid-level providers; including initial eval/diagnosis, diagnostic interpretation, re-eval, consultations, final disposition - Lab Interpretations Lab Results: 07/18/17 12:05 07/18/17 12:05 Lab Results 07/18/17 12:09: POC Glucose (mg/dL) 206 H 07/18/17 12:05: Sodium 144, Chloride 110 H, Potassium 4.6, Carbon Dioxide 18 L, Anion Gap 21 H, BUN 37 H, Creatinine 1.5 H, Est GFR ( Amer) 42, Est GFR ( Non-Af Amer) 35, Random Glucose 212 H, Calcium 9.5, Total Bilirubin 0.9, AST 21 , ALT 27, Alkaline Phosphatase 132 H D, Lactate Dehydrogenase 658, Total Creatine Kinase 48, Troponin I 0.01 D, NT-Pro-B Natriuret Pep 6670 H, Total Protein 7.5, Albumin 4.0, Globulin 3.5, Albumin/Globulin Ratio 1.1 07/18/17 12:05: pO2 86 H, VBG pH 7.29 L, VBG pCO2 42.0, VBG HCO3 20.2 L, VBG Total CO2 21.5 L, VBG O2 Sat (Calc) 97.7 H, VBG Base Excess -6.1 L, VBG Potassium 4.5, Sodium 140.0, Chloride 108.0 H, Glucose 219 H, Lactate 3.3 H, FiO2 21.0, Venous Blood Potassium 4.5 07/18/17 12:05: PT 58.0 H, INR 4.88 H*, APTT 50.7 H 07/18/17 12:05: WBC 12.5 H D, RBC 4.51, Hgb 10.5 L, Hct 33.7 L, MCV 74.7 L, MCH 23.3 L, MCHC 31.2, RDW 18.8 H, Plt Count 290, MPV 9.2, Gran % 89.0 H, Lymph % ( Auto) 5.7 L, [place] % (Auto) 3.6, Eos % (Auto) 1.1 L, Baso % (Auto) 0.6, Gran # 11.07 H, Lymph # (Auto) 0.7 L, [place] # (Auto) 0.5, Eos # (Auto) 0.1, Baso # (Auto ) 0.08 I have reviewed the lab results: Yes Interpretation: Abnormal lab values (elevated BNP, elevated INR; elevated gluc; elevated lactic acid) - RAD Interpretation Narrative RAD Interpretations (Text): 07/18/17 12:59 Chest X-ray reviewed by radiologist, shows increasing infiltrate and effusion at the left lung base in comparison to Chest X-ray performed on 05/09/2017. HISTORY: sob, worsening exertional sob COMPARISON: 05/09/2017 TECHNIQUE: Chest PA and lateral FINDINGS: LUNGS: There is an increasing infiltrate and effusion at the left lung base. PLEURA: No significant pleural effusion identified. No pneumothorax apparent. CARDIOVASCULAR: Mild vascular congestion OSSEOUS STRUCTURES: No significant abnormalities. VISUALIZED UPPER ABDOMEN: Normal. OTHER FINDINGS: None. IMPRESSION: Increasing infiltrate and effusion at the left lung base Radiology Orders: 07/18/17 11:48 CHEST TWO VIEWS (PA/LAT) [RAD] Stat DUPLEX LOWER EXTRM VEIN BILAT [US] Stat Retail Field Merchandiser: Radiologist - EKG Interpretation EKG Interpretation (Text): 07/18/17 12:08 atrial fib at 75 bpm, normal axis, + ectopy, diffuse low voltage, incomplete RBBB, non-specific st-t changes, ABNL EKG; unchanged compare with old ekg 04/2017 Interpreted by ED Physician: Yes Type: 12 lead EKG Comparison: Similar to previous EKG - Medication Orders Current Medication Orders: Azithromycin (Zithromax 500mg In Ns) 500 mg in 250 mls @ 167 mls/hr IVPB STAT STA PRN Reason: Protocol Stop: 07/18/17 14:19 Discontinued Medications Furosemide (Lasix) 40 mg IVP STAT STA Stop: 07/18/17 11:49 Last Admin: 07/18/17 12:12 Dose: 40 mg MAR Blood Pressure Document 07/18/17 12:12 SF (Rec: 07/18/17 12:13 SF [id number]) Blood Pressure Blood Pressure (100/60-150/90) 153/73 IVP Administration Document 07/18/17 12:12 SF (Rec: 07/18/17 12:13 SF [id number]) Charges for Administration # of IVP Administrations 1 Ceftriaxone Sodium (Rocephin 1 Gram Ivpb) 1 gm in 100 mls @ 200 mls/hr IVPB STAT STA PRN Reason: Protocol Stop: 07/18/17 13:17 Ipratropium [place] (Atrovent) 0.5 mg IH STAT STA Stop: 07/18/17 11:49 Last Admin: 07/18/17 12:13 Dose: 0.5 mg Nitroglycerin (Nitro-Bid 2% Oint) 1 ea TOP STAT STA Stop: 07/18/17 11:58 Last Admin: 07/18/17 12:13 Dose: 1 ea Disposition/Present on Arrival - Present on Arrival Any Indicators Present on Arrival: No History of DVT/PE: Yes History of Uncontrolled Diabetes: Yes Urinary Catheter: No History of Decub. Ulcer: No History Surgical Site Infection Following: None - Disposition Have Diagnosis and Disposition been Completed?: Yes Diagnosis: Respiratory distress, acute, Acute on chronic diastolic CHF (congestive heart failure), Pleural effusion, At risk for sepsis, Hypoxia Disposition: HOSPITALIZED Disposition Time: 13:01 Patient Plan: Admission, Telemetry Patient Problems: Current Active Problems Problem Status Onset Pleural effusion Acute Respiratory distress, acute Acute Acute on chronic diastolic CHF (congestive heart failure) Acute At risk for sepsis Acute Condition: STABLE Discharge Instructions (ExitCare): Heart Failure (ED) Referrals: Isaiah NUÑEZ,MD Rony [Primary Care Provider] - Follow up with primary Forms: [facility] (Greek)
[2017-07-18] MEDS ORDERED: Nitroglycerin 2% Ointment Foilpak UD TOP STA (11:57)
[2017-07-18 12:29] LABS: VENOUS BLOOD GAS BASE EXCESS -6.1 mmol/L (0.0-2.0); VENOUS BLOOD GAS PO2 86 mm/Hg (30-55); VENOUS BLOOD PH 7.29 (7.32-7.43)
[2017-07-18 12:30] LABS: BASO # 0.08 K/mm3 (0.0-2.0); BASO % 0.6 % (0.0-3.0); EOS # 0.1 (0.0-0.7); EOS % 1.1 % (1.5-5.0); GRAN # 11.07 (1.4-6.5); HEMOGLOBIN 10.5 g/dL (12.0-16.0); LYMPH # 0.7 (1.2-3.4); LYMPH % 5.7 % (22.0-35.0); MEAN CELL VOLUME 74.7 fl (80.0-105.0); MEAN CORPUSCULAR HEMOGLOBIN 23.3 pg (25.0-35.0); MEAN CORPUSCULAR HGB CONC 31.2 g/dl (31.0-37.0); MEAN PLATELET VOLUME 9.2 fl (7.0-11.0); MONO # 0.5 (0.1-0.6); MONO % 3.6 % (1.0-6.0); RBC 4.51 10^6/uL (3.5-6.1); RED CELL DISTRIBUTION WIDTH 18.8 % (11.5-14.5); WHITE BLOOD COUNT 12.5 10^3/ul (4.5-11.0)
[2017-07-18 12:37] LABS: ALB/GLOB RATIO 1.1 (1.1-1.8); CALCIUM 9.5 mg/dL (8.4-10.5)
[2017-07-18] MEDS ORDERED: cefTRIAXone 1 gm 1 GM/100 ML BAG IVPB STA (12:48)
[2017-07-18 12:50] LABS: PARTIAL THROMBOPLASTIN TIME 50.7 Seconds (25.1-36.5)
[2017-07-18] MEDS ORDERED: Azithromycin 500MG/NS 250ml 500 MG/250 ML BAG IVPB STA (12:50)
[2017-07-18 12:54] LABS: INR 4.88 (0.93-1.08)
[2017-07-18 12:56] LABS: TROPONIN I 0.01 ng/mL
--- NOTE | 2017-07-18 12:56 | RAD ---
HISTORY: sob, worsening exertional sob COMPARISON: 05/09/2017 TECHNIQUE: Chest PA and lateral FINDINGS: LUNGS: There is an increasing infiltrate and effusion at the left lung base. PLEURA: No significant pleural effusion identified. No pneumothorax apparent. CARDIOVASCULAR: Mild vascular congestion OSSEOUS STRUCTURES: No significant abnormalities. VISUALIZED UPPER ABDOMEN: Normal. OTHER FINDINGS: None. IMPRESSION: Increasing infiltrate and effusion at the left lung base
[2017-07-18 14:39] LABS: URINE BILIRUBIN NEGATIVE (NEGATIVE); URINE BLOOD MODERATE (NEGATIVE); URINE GLUCOSE (UA) NEGATIVE (NEGATIVE); URINE LEUKOCYTE ESTERASE MODERATE Leu/uL (NEGATIVE); URINE PROTEIN 100 mg/dL (<30 mg/dL); URINE UROBILINOGEN 0.2 E.U./dL (<1 E.U./dL)
[2017-07-18 14:42] LABS: URINE APPEARANCE CLOUDY (CLEAR); URINE COLOR LIGHT YELLOW (YELLOW)
[2017-07-18 14:56] LABS: URINE BACTERIA MANY (NEG); URINE RBC 25 - 30 /hpf (0-2); URINE WBC 25 - 30 /hpf (0-6)
[2017-07-18 14:58] LABS: URINE AMORPHOUS SEDIMENT TRACE; URINE COARSE GRANULAR CAST TRACE /hpf (0-2)
--- NOTE | 2017-07-18 15:32 | CARD ---
APPROVED REPORT EKG Measurement Heart [id number] <Conclusion> Atrial fibrillation Right superior axis deviation Low voltage QRS Incomplete right bundle branch block Nonspecific ST and T wave abnormality, probably digitalis effect Abnormal ECG
[2017-07-18 15:51] LABS: VENOUS BLOOD GAS BASE EXCESS -4.8 mmol/L (0.0-2.0); VENOUS BLOOD GAS PO2 257 mm/Hg (30-55); VENOUS BLOOD PH 7.37 (7.32-7.43)
--- NOTE | 2017-07-18 18:05 | US ---
HISTORY: Leg pain and swelling. Evaluate for DVT PHYSICIAN(S): Eric Marrufo MD. TECHNIQUE: Duplex sonography and color-flow Doppler with graded compression were used to evaluate the deep venous systems of both lower extremities. The exam is somewhat limited by edema. FINDINGS: The visualized deep venous systems of both lower extremities are sonographically normal and compressible. Normal wave forms and augmentation are seen. There is no sonographic evidence for deep venous thrombosis in the visualized segments of both lower extremities. IMPRESSION: No sonographic evidence for deep venous thrombosis in the visualized segments of both lower extremities.
[2017-07-18] MEDS: Insulin Lispro (humaLOG) MEDIUM Coverage SC SCH (21:30)
[2017-07-18 22:50] LABS: HDL CHOLESTEROL 41 mg/dL (29-60)
[2017-07-18 23:01] LABS: LDL CHOLESTEROL 51 mg/dL (0-129)
[2017-07-18 23:02] LABS: TROPONIN I < 0.01 ng/mL
--- NOTE | 2017-07-19 04:06 | HP ---
HISTORY OF PRESENT ILLNESS: The patient is a 66-year-old who was admitted in April 2017 with almost similar complaint, came to emergency room because of increasing shortness of breath. Denies fever. Does complain of cough. No history of chest pain. Denies any nausea, vomiting. No diarrhea. The patient states she does her house chore by herself. PAST MEDICAL HISTORY: Significant for: 1. Nad-nueyoqu-pubmbcerq diabetes. 2. Hypertension. 3. Chronic atrial fibrillation, on Coumadin. 4. History of CVA in 2013 causing left hemiparesis that has almost resolved, except slight weakness that gets worse at times. 5. History of left knee arthroscopic procedure and history of abdominal hernia. 6. Chronic bilateral leg cellulitis. SOCIAL HISTORY: She was a heavy smoker in the past, quit 3-4 years ago. Denies alcohol use, denies any history of drug abuse. ALLERGIES: SHE IS ALLERGIC TO CODEINE, PENICILLIN, PLAVIX, PEACHES AND NECTARINES. MEDICATIONS AT HOME: She is on Lasix 40 mg daily, vitamin D, atorvastatin 40 mg daily, clonidine 0.3 three times a day, Norvasc 10 mg daily, Coumadin 7.5 mg once a day and 5 mg days, valsartan 160 daily, metoprolol 50 mg 3 times a day, metformin 1000 twice a day, meclizine 25 t.i.d., isosorbide 30 mg daily, 70/30 insulin 8 units before each meal, and glipizide 10 mg daily. REVIEW OF SYSTEMS: Significant for bilateral leg swelling, bilateral weathers erythema, and shortness of breath mostly on exertion. PHYSICAL EXAMINATION: GENERAL: She is awake, alert, oriented, communicative. VITAL SIGNS: She is afebrile, pulse 72, respirations 19, blood pressure 146/81. LUNGS: Bilateral good airflow. No rhonchi or crackles. No prolonged wheezing; however, she has decreased breath sounds at bases. HEART: S1 and S2 audible. ABDOMEN: Soft, obese, nontender. No rebound, no guarding. NEUROLOGIC: She is awake, alert, oriented, communicative. EXTREMITIES: Bilateral leg, +2 edema with erythema on shins. LABORATORY DATA: WBC is 12.5, hemoglobin 10.5, hematocrit 33.7, platelet of 290. PT 58, INR 4.88. Chemistry: Sodium 144, potassium 4.6, chloride 110, CO2 of 18, BUN 37, creatinine 1.5, blood sugar of 206, alkaline phosphatase 132, BNP 6670. Urinalysis showed moderate leukocyte with wbc's 25-30. Her bilateral leg Doppler negative for DVT. EKG showed atrial fibrillation with right axis deviation, incomplete right bundle-branch block. X-ray chest, increasing infiltrate and effusion in the left lung base. ASSESSMENT: 1. Congestive heart failure exacerbation, acute on chronic systolic. 2. History of chronic obstructive pulmonary disease. 3. Hypertension. 4. Hyperlipidemia. 5. Umn-utiyvnr-urtzavczn diabetes. 6. Biatrial enlargement. 7. Concentric left ventricular hypertrophy with mild anteroapical hypokinesia. 8. Moderate mitral regurgitation. 9. Moderate tricuspid regurgitation. PLAN: The patient will be admitted on telemetry. We will start IV diuretics. Start her on nebulizer treatment. Follow up electrolytes. Hold Coumadin for today. Monitor blood sugar. X-ray chest shows questionable infiltrate versus pleural effusion; I will order for CT scan of the chest to get the details. In the meantime, empirically start her on IV antibiotic, Rocephin and Zithromax. Follow up the patient in a.m. Jason Laws MD
[2017-07-19 07:03] LABS: BASO # 0.08 K/mm3 (0.0-2.0); BASO % 0.9 % (0.0-3.0); EOS # 0.2 (0.0-0.7); EOS % 2.4 % (1.5-5.0); GRAN # 7.2 (1.4-6.5); GRAN % 78.6 % (50.0-68.0); LYMPH # 0.9 (1.2-3.4); LYMPH % 10.1 % (22.0-35.0); MEAN CELL VOLUME 74.6 fl (80.0-105.0); MEAN CORPUSCULAR HEMOGLOBIN 22.7 pg (25.0-35.0); MEAN CORPUSCULAR HGB CONC 30.4 g/dl (31.0-37.0); MONO # 0.7 (0.1-0.6); RBC 4.41 10^6/uL (3.5-6.1); RED CELL DISTRIBUTION WIDTH 18.7 % (11.5-14.5); WHITE BLOOD COUNT 9.2 10^3/ul (4.5-11.0)
[2017-07-19 07:18] LABS: FREE T4 1.59 ng/dL (0.78-2.19)
[2017-07-19 07:24] LABS: ALB/GLOB RATIO 1.1 (1.1-1.8); ALBUMIN 3.9 g/dL (3.0-4.8); CALCIUM 9.9 mg/dL (8.4-10.5)
[2017-07-19] MEDS ORDERED: Levalbuterol 1.25 MG/3 ML Inhal Soln UD IH SCH (08:00)
[2017-07-19] MEDS: Insulin Lispro (humaLOG) MEDIUM Coverage SC SCH ×4 (08:26→22:20)
[2017-07-19] MEDS: cefTRIAXone 1 gm 1 GM/100 ML BAG IVPB SCH (09:27)
[2017-07-19] MEDS: Insulin Human NPH/Reg 70/30 Vial(3 ml) SC SCH ×3 (09:46→19:09)
[2017-07-19] MEDS ORDERED: Azithromycin 500MG/NS 250ml 500 MG/250 ML BAG IVPB SCH (10:00)
--- NOTE | 2017-07-19 10:10 | CON ---
DATE: 07/19/2017 REQUESTING PHYSICIAN: Jason Laws MD. REASON FOR CONSULTATION: Dyspnea, known coronary artery disease. HISTORY: This is a 66-year-old woman, well-known to me with a history of chronic atrial fibrillation, coronary artery disease, status post prior PCI and congestive heart failure, who was admitted with complaints of worsening cough and dyspnea. She had a fever at home as well. She presented to the emergency room. She was found to have evidence of a left lower lobe pneumonia. She denies any chest pain. Her exertional dyspnea has become progressive over the past several days. PAST MEDICAL HISTORY: Her past history is notable for the problems mentioned above. She has a history of chronic atrial fibrillation and a prior cerebrovascular accident. She also has a history of diabetes, peripheral neuropathy, chronic cellulitis, hypertension. CURRENT MEDICATIONS: Include Antivert, clonidine 0.3 mg t.i.d., Glucophage 1000 mg b.i.d., Glucotrol 10 mg daily, insulin coverage, Imdur 30 mg daily, Lipitor 40 mg daily, metoprolol 50 mg t.i.d., Norvasc 10 mg daily, Rocephin, Xopenex and azithromycin. ALLERGIES: SHE HAS HAD A REACTION TO CODEINE, PENICILLINS AND PLAVIX IN THE PAST. SOCIAL HISTORY: She is a former smoker. She lives at home. FAMILY HISTORY: Both parents from age-related illness. REVIEW OF SYSTEMS: Ten-point review of systems is notable mainly for problems as mentioned above. She has lost some weight recently. She states that her appetite has been somewhat diminished. On her last admission, an echocardiogram showed evidence of mildly reduced LV systolic function with mild anteroapical hypokinesis, moderate mitral regurgitation, moderate tricuspid regurgitation as well as mild concentric LVH. PHYSICAL EXAMINATION: GENERAL: She is an overweight, middle-aged woman. VITAL SIGNS: Her blood pressure is 140/80 with pulse of 90 in atrial fibrillation, respirations are 16. She is currently afebrile. HEENT: Normocephalic, atraumatic. NECK: Supple. No JVD noted. CHEST: Bibasilar crackles noted, worse on the left than the right. HEART: PMI displaced laterally with a systolic murmur noted at the lower left sternal border as well as at the apex. Rhythm is irregularly irregular. ABDOMEN: Soft, obese, nontender. Normoactive bowel sounds. EXTREMITIES: 2+ leg edema. DIAGNOSTIC DATA: Potassium 4.4, BUN and creatinine 37 and 1.4, glucose is 195. White count 9.2, hemoglobin and hematocrit 10.0 and 32.9 with an MCV of 75, platelet count is 262,000. INR is 4.88. Arterial blood gas showed pH 7.37, pCO2 of 34 and pO2 of 257. Two sets cardiac enzymes were negative. BNP is 6670. TSH 2.28. Electrocardiogram reveals atrial fibrillation with nonspecific ST-T abnormalities. Chest x-ray reveals borderline cardiac silhouette enlargement with left pleural effusion and left lower lobe infiltrate. IMPRESSION: 1. Dyspnea, appears secondary to pneumonia, may have some component of mildly decompensated congestive heart failure secondary to stress of the illness. 2. Coronary artery disease, status post remote percutaneous coronary intervention. Appears clinically stable at the present time. 3. Chronic atrial fibrillation with rate control at the present time. INR is out of range and Coumadin will be withheld pending followup. Continued respiratory therapy and antibiotics is advised. Daily Lasix therapy will be continued for now. Thank you for this consultation. We will be happy to follow along through her hospital course. Mauro Dowell MD
[2017-07-19] MEDS: Levalbuterol 0.63 MG/3 ML Inhal Soln UD IH SCH ×2 (13:49→20:13)
[2017-07-19] MEDS ORDERED: Influenza Vaccine 60 mcg/0.5 mL SYR (4YR UP) IM ONE (14:21)
[2017-07-19] MEDS ORDERED: Pneumococcal 23-Valent Vaccine IM ONE (14:21)
--- NOTE | 2017-07-19 16:21 | CT ---
PROCEDURE: CT Chest without contrast HISTORY: sob COMPARISON: Chest CT without contrast 05/06/2017. TECHNIQUE: Contiguous axial images were obtained through the chest without intravenous contrast enhancement. Sagittal and coronal reconstructions were performed. Radiation dose (DLP): 698.98 mGy-cm. This CT exam was performed using one or more of the following dose reduction techniques: Automated exposure control, adjustment of the mA and/or kV according to patient size, and/or use of iterative reconstruction technique. FINDINGS: LUNGS: Diminished bilateral compressive atelectasis related to pleural effusions. MEDIASTINUM: Atherosclerotic thoracic aorta. No aneurysm. Stable cardiomegaly. Extensive coronary artery atherosclerosis again identified with likely multiple coronary artery stent placement again evident. No pericardial effusion. Main pulmonary artery unremarkable. No vascular congestion. Shotty mediastinal lymph nodes again identified. PLEURA: Diminishing bilateral pleural effusions hyper mild bilaterally, particularly at the left. BONES: No fracture. No destructive lesion. UPPER ABDOMEN: Cholelithiasis. OTHER FINDINGS: None. IMPRESSION: Diminishing bilateral pleural effusions with minimal left pleural effusion evident and mild right present. Diminishing by a lateral lower lobe compressive atelectasis. No definitive infiltrate separate from these areas. Stable cardiomegaly. Cholelithiasis incidentally evident.
--- NOTE | 2017-07-19 23:25 | PN ---
DATE: SUBJECTIVE: She was admitted for increasing shortness of breath, has been on diuretics, is doing a little better, although she states she could not sleep last night because of the shortness of breath. PHYSICAL EXAMINATION: VITAL SIGNS: She has a temperature of 99.5, pulse 70, respirations 20, blood pressure 160/65. LUNGS: Bilaterally decreased breath sound, more so at the bases. HEART: S1 and S2 audible. ABDOMEN: Soft, obese, nontender. No rebound, no guarding. NEUROLOGIC: The patient is awake and alert, able to communicate. EXTREMITIES: Bilateral leg +2 edema with mild cellulitis. LABORATORY DATA: WBC is 9.2, hemoglobin 10, hematocrit 32.9, platelets of 262. PT 58.0, INR 4.88. Chemistry: Sodium 146, potassium 4.4, chloride 110, CO2 of 23, BUN 37, creatinine 1.4, blood sugar of 108. Urine shows moderate leukocyte with 25 to 30 wbc's. Blood cultures are negative. Urine positive for Gram-negative rods. A CT scan of the chest done that shows no definite infiltrate; however, bilateral pleural effusion. PLAN: We will continue the patient on clonidine. She is on metformin, although it was on hold because of her creatinine. Continue her on glipizide, monitor blood sugar, continue diuretics, continue isosorbide. We will also continue Rocephin and discontinue Zithromax since there is no evidence of infiltrate. We will cover her bilateral leg cellulitis with Rocephin. We will follow up electrolyte in a.m. Jason Laws MD
[2017-07-20 06:45] LABS: BASO # 0.06 K/mm3 (0.0-2.0); BASO % 0.9 % (0.0-3.0); EOS # 0.3 (0.0-0.7); GRAN # 4.48 (1.4-6.5); GRAN % 68.1 % (50.0-68.0); HEMOGLOBIN 9.6 g/dL (12.0-16.0); LYMPH # 1.3 (1.2-3.4); LYMPH % 19.6 % (22.0-35.0); MEAN CELL VOLUME 74.8 fl (80.0-105.0); MEAN CORPUSCULAR HGB CONC 30.8 g/dl (31.0-37.0); MONO # 0.5 (0.1-0.6); MONO % 7.4 % (1.0-6.0); RBC 4.17 10^6/uL (3.5-6.1); RED CELL DISTRIBUTION WIDTH 18.9 % (11.5-14.5); WHITE BLOOD COUNT 6.6 10^3/ul (4.5-11.0)
[2017-07-20 06:53] LABS: ALBUMIN 3.5 g/dL (3.0-4.8); CALCIUM 9.4 mg/dL (8.4-10.5)
[2017-07-20] MEDS: Levalbuterol 0.63 MG/3 ML Inhal Soln UD IH SCH ×3 (07:31→20:15)
[2017-07-20] MEDS: Insulin Lispro (humaLOG) MEDIUM Coverage SC SCH ×4 (08:11→22:20)
[2017-07-20] MEDS: cefTRIAXone 1 gm 1 GM/100 ML BAG IVPB SCH (10:45)
[2017-07-20] MEDS: Insulin Human NPH/Reg 70/30 Vial(3 ml) SC SCH ×3 (10:45→18:27)
--- NOTE | 2017-07-20 15:31 | PN ---
DATE: 07/20/2017 SUBJECTIVE: The patient is seen sitting in bed on telemetry. She feels significantly better. Dyspnea is improved. Cough is improved as well. CURRENT MEDICATIONS: Remain Catapres 0.3 mg t.i.d., Glucotrol insulin coverage, Imdur 30 mg daily, Lasix 40 mg daily, Lipitor 40 mg daily, metoprolol 50 mg t.i.d., Norvasc 10 mg daily, and Rocephin. OBJECTIVE: GENERAL: She is an overweight middle-aged woman. VITAL SIGNS: Blood pressure is 134/70 with a pulse of 80, in atrial fibrillation; respirations 14. She is afebrile. HEENT: No JVD. CHEST: Bibasilar crackles, greater on the left than the right. HEART: PMI displaced laterally with systolic murmur in the left sternal border. ABDOMEN: Soft, obese, nontender with bowel sounds. EXTREMITIES: Trace ankle edema. DIAGNOSTIC DATA: Potassium 4.5, BUN and creatinine 34 and 1.4, white count 6.6, hemoglobin and hematocrit 9.6 and 31.2, platelet count of 239,000. INR from today is pending, yesterday's INR was 4.88. Coumadin is on hold. IMPRESSION: 1. Left lower lobe pneumonia, clinically improved. 2. Mildly decompensated congestive heart failure, acute on chronic combined systolic and diastolic. 3. Coronary artery disease, status post remote percutaneous coronary intervention. 4. Chronic atrial fibrillation with Coumadin on hold due to excess anticoagulation yesterday. 5. Hypertension, suboptimal control. RECOMMENDATIONS: Continue respiratory therapy and antibiotics should be continued. Coumadin will be withheld today and repeat INR performed in the morning. Resumption of valsartan therapy is advised for better blood pressure control. IV Lasix will be continued for another 1 to 2 days with repeat chest x-ray to be performed. We will continue to follow and make further recommendations as appropriate. Mauro Dowell MD [facility]
--- NOTE | 2017-07-20 16:01 | PN ---
DATE: SUBJECTIVE: The patient is 66-year-old, seen and examined, sitting in chair, seems to be comfortable. She states she was able to sleep last night. She still has shortness of breath with bilateral leg swelling. PHYSICAL EXAMINATION: VITAL SIGNS: She is afebrile, pulse 79, respirations 20, blood pressure 174/71. LUNGS: Bilateral diffusely decreased breath sounds, more so in the bases. HEART: S1 and S2 audible. ABDOMEN: Soft, obese, nontender. No rebound. No guarding. NEUROLOGICAL: The patient is awake, alert, oriented, able to communicate. EXTREMITIES: Bilateral legs, +3 edema. LABORATORY DATA: WBC is 6.6, hemoglobin 9.6, hematocrit 31.2, and platelet 239. PT 58, INR 4.88. Chemistry: Sodium 144, potassium 4.5, chloride 111, CO2 of 24, BUN 34, creatinine 1.4, and blood sugar of 223. Urine culture positive for Klebsiella pneumoniae and blood cultures are negative. CT of the chest shows bilateral pleural effusion, although it has improved from before along with compressive atelectasis. ASSESSMENT: 1. Congestive heart failure exacerbation with systolic dysfunction. 2. Vvw-ktcjnjq-kpguhdxfy diabetes. 3. Hypertension. 4. Morbid obesity. 5. Bilateral leg edema. 6. Chronic atrial fibrillation. 7. Bilateral leg cellulitis. 8. Klebsiella pneumoniae urinary tract infection, extended spectrum beta-lactamases negative. PLAN: I will order for PT/INR in a.m. We will continue diuretics. We will continue losartan. Blood sugar is being monitored. Continue Lasix 40 mg daily. She is on metoprolol 50 mg twice a day. Continue her on Rocephin. We will apply Bijan bandage with moderate pressure to reduce the swelling, so she can fit into a stocking. We will reevaluate the patient in a.m. Jason Laws MD
[2017-07-21 06:46] LABS: INR 1.91 (0.93-1.08); PROTHROMBIN TIME 22.3 SECONDS (9.4-12.5)
[2017-07-21] MEDS: Levalbuterol 0.63 MG/3 ML Inhal Soln UD IH SCH ×3 (07:44→20:06)
--- NOTE | 2017-07-21 08:43 | CP.PCM.PN ---
Subjective - Date & Time of Evaluation Date of Evaluation: 07/21/17 Time of Evaluation: 07:00 - Subjective Subjective: Stable on 3R. No CP or SOB. V/S noted. AF. PE: Lungs: few rhonchi Cor.: irreg., S1S2, soft sys. murmur Abd.: soft Ext.: no edema Neuro.: alert Labs noted. INR 1.[address] Chest noted. BC X2 NG at 48 hrs. Urine + Klebs Objective - Vital Signs/Intake and Output Vital Signs (last 24 hours): Temp Pulse Resp BP Pulse Ox 97.7 F 77 20 161/70 H 97 07/21/17 08:12 07/21/17 08:12 07/21/17 08:12 07/21/17 08:12 07/21/17 08:12 - Medications Medications: Current Medications Amlodipine Besylate (Norvasc) 10 mg PO DAILY [facility] Last Admin: 07/20/17 10:44 Dose: 10 mg Atorvastatin Calcium (Lipitor) 40 mg PO QOTHERDAY [facility] Last Admin: 07/20/17 10:44 Dose: 40 mg Atorvastatin Calcium (Lipitor) 40 mg PO DIN [facility] Clonidine HCl (Catapres) 0.3 mg PO TID [facility] Last Admin: 07/20/17 18:26 Dose: 0.3 mg Furosemide (Lasix) 40 mg IV DAILY [facility] Last Admin: 07/20/17 10:44 Dose: 40 mg Glipizide (Glucotrol) 10 mg PO DAILY [facility] Last Admin: 07/20/17 10:43 Dose: 10 mg Ceftriaxone Sodium (Rocephin 1 Gram Ivpb) 1 gm in 100 mls @ 100 mls/hr IVPB DAILY [facility] PRN Reason: Protocol Last Admin: 07/20/17 10:45 Dose: 100 mls/hr Insulin Human Lispro (Humalog Med) 0 units SC ACHS [facility] PRN Reason: Protocol Last Admin: 07/20/17 22:20 Dose: Not Given Isosorbide Mononitrate (Imdur Er) 30 mg PO 0600 [facility] Last Admin: 07/21/17 06:09 Dose: 30 mg Levalbuterol HCl (Xopenex) 0.63 mg IH TIDRESP [facility] Last Admin: 07/21/17 07:44 Dose: 0.63 mg Losartan Potassium (Cozaar) 100 mg PO DAILY [facility] Last Admin: 07/20/17 13:13 Dose: 100 mg Meclizine HCl (Antivert) 25 mg PO TID PRN PRN Reason: dizzy Metoprolol Tartrate (Lopressor) 50 mg PO BID [facility] Last Admin: 07/20/17 18:26 Dose: 50 mg Warfarin Sodium (Coumadin) 5 mg PO 1800 [facility] PRN Reason: Protocol - Labs Labs: 07/20/17 06:00 07/20/17 06:00 PT 22.3 SECONDS (9.4-12.5) H 07/21/17 05:30 INR 1.91 (0.93-1.08) H 07/21/17 05:30 APTT 50.7 Seconds (25.1-36.5) H 07/18/17 12:05 Assessment and Plan - Assessment and Plan (Free Text) Assessment: Cough/Dyspnea Possible Pneumonia UTI CHF CAD/Remote PCI CVA HBP Diabetes PN Obesity Chronic cellulitis Former Smoker Echo 05/15: Mild LVD, Mod. MR and TR. Plan: Resume warfarin and monitor INR daily AB Continue IV Lasix today. Check BMP in AM OOB as lela.
[2017-07-21] MEDS: Insulin Human NPH/Reg 70/30 Vial(3 ml) SC SCH ×3 (09:33→17:39)
[2017-07-21] MEDS: Cefpodoxime (Vantin) 200 mg Tab PO SCH ×2 (09:37→21:21)
[2017-07-21] MEDS: Insulin Lispro (humaLOG) MEDIUM Coverage SC SCH ×3 (11:14→18:30)
--- NOTE | 2017-07-21 15:03 | PN ---
DATE: SUBJECTIVE: Patient is 66-year-old, seen and examined, lying in bed, seems to be comfortable. Still has shortness of breath, gets more short of breath on walking. PHYSICAL EXAMINATION: VITAL SIGNS: She is afebrile, pulse 77, respirations 20, blood pressure 160/70. LUNGS: Bilateral good airflow. No rhonchi or crackle. Decreased breath sounds at bases. HEART: S1 and S2 audible. ABDOMEN: Soft, obese, nontender. No rebound, no guarding. NEUROLOGICAL: Patient is awake, alert, oriented, communicative. EXTREMITIES: Bilateral leg +2 edema. LABORATORY DATA: Her PT is 22.3, INR 1.91. Chemistry: Blood sugar is 201, this morning was 727. ASSESSMENT: 1. Congestive heart failure exacerbation. 2. Coronary artery disease, status post angioplasty. 3. Moderate mitral regurgitation. 4. Yam-hdwqlzl-ovdbwcprj diabetes. 5. Bilateral leg edema and cellulitis. 6. Klebsiella urinary tract infection. PLAN: We will continue the patient on current antibiotic. Continue nebulizer treatment. Continue diuretics. TCU evaluation has been requested. If accepted, can be transferred to TCU today and we will continue to monitor her blood sugar, seems to be under good control. Jason Laws MD
[2017-07-22 06:46] LABS: CALCIUM 9.1 mg/dL (8.4-10.5)
[2017-07-22 06:52] LABS: INR 1.54 (0.93-1.08); PROTHROMBIN TIME 17.9 SECONDS (9.4-12.5)
[2017-07-22] MEDS: Levalbuterol 0.63 MG/3 ML Inhal Soln UD IH SCH ×3 (07:25→20:32)
[2017-07-22] MEDS: Insulin Lispro (humaLOG) MEDIUM Coverage SC SCH ×3 (08:32→16:22)
--- NOTE | 2017-07-22 09:09 | CP.PCM.PN ---
Subjective - Date & Time of Evaluation Date of Evaluation: 07/22/17 Time of Evaluation: 07:00 - Subjective Subjective: Stable on 3R. No CP or SOB. V/S noted. AF. PE: Lungs: few rhonchi Cor.: irreg., S1S2, soft sys. murmur Abd.: soft Ext.: no edema Neuro.: alert Labs noted. INR 1.54, Cr.= 1.3 CT Chest noted. BC X2 NG at 3 days Urine + Klebs Objective - Vital Signs/Intake and Output Vital Signs (last 24 hours): Temp Pulse Resp BP Pulse Ox 97.6 F 66 20 169/80 H 94 L 07/22/17 08:14 07/22/17 08:14 07/22/17 08:14 07/22/17 08:14 07/22/17 08:14 Intake and Output: 07/22/17 07/22/17 06:59 18:59 Intake Total 840 Balance 840 - Medications Medications: Current Medications Amlodipine Besylate (Norvasc) 10 mg PO DAILY [facility] Last Admin: 07/21/17 09:35 Dose: 10 mg Atorvastatin Calcium (Lipitor) 40 mg PO DIN [facility] Last Admin: 07/21/17 17:38 Dose: 40 mg Cefpodoxime Proxetil (Vantin) 200 mg PO Q12 [facility] Last Admin: 07/21/17 21:21 Dose: 200 mg Clonidine HCl (Catapres) 0.3 mg PO TID [facility] Last Admin: 07/21/17 17:38 Dose: 0.3 mg Furosemide (Lasix) 40 mg IV DAILY [facility] Last Admin: 07/21/17 09:34 Dose: 40 mg Glipizide (Glucotrol) 10 mg PO DAILY [facility] Last Admin: 07/21/17 09:35 Dose: 10 mg Insulin Human Lispro (Humalog Med) 0 units SC ACHS [facility] PRN Reason: Protocol Last Admin: 07/22/17 08:32 Dose: Not Given Isosorbide Mononitrate (Imdur Er) 30 mg PO 0600 [facility] Last Admin: 07/22/17 05:48 Dose: 30 mg Levalbuterol HCl (Xopenex) 0.63 mg IH TIDRESP [facility] Last Admin: 07/22/17 07:25 Dose: 0.63 mg Losartan Potassium (Cozaar) 100 mg PO DAILY [facility] Last Admin: 07/21/17 09:35 Dose: 100 mg Meclizine HCl (Antivert) 25 mg PO TID PRN PRN Reason: dizzy Metoprolol Tartrate (Lopressor) 50 mg PO BID [facility] Last Admin: 07/21/17 17:39 Dose: 50 mg Warfarin Sodium (Coumadin) 5 mg PO 1800 [facility] PRN Reason: Protocol Last Admin: 07/21/17 17:39 Dose: 5 mg - Labs Labs: 07/20/17 06:00 07/22/17 05:30 PT 17.9 SECONDS (9.4-12.5) H 07/22/17 05:30 INR 1.54 (0.93-1.08) H 07/22/17 05:30 APTT 50.7 Seconds (25.1-36.5) H 07/18/17 12:05 Assessment and Plan - Assessment and Plan (Free Text) Assessment: Cough/Dyspnea Possible Pneumonia UTI CHF CAD/Remote PCI CVA HBP Diabetes PN Obesity Chronic cellulitis Former Smoker Echo 05/15: Mild LVD, Mod. MR and TR. Plan: Warfarin 10 mg. today. Daily INR's AB Continue IV Lasix today. Check BMP in AM OOB as lela. TCU Eval.
[2017-07-22] MEDS: Insulin Human NPH/Reg 70/30 Vial(3 ml) SC SCH ×4 (09:55→17:55)
[2017-07-22] MEDS: Cefpodoxime (Vantin) 200 mg Tab PO SCH ×2 (09:57→22:45)
--- NOTE | 2017-07-22 21:18 | PN ---
DATE: SUBJECTIVE: The patient is 66-year-old, seen and examined. Still has congestion, but no cough. Complains of shortness of breath on minimal exertion. PHYSICAL EXAMINATION: VITAL SIGNS: She is afebrile. Pulse 71, respirations 18, blood pressure 168/90. LUNGS: Bilateral fair airflow. No rhonchi or crackle. HEART: S1 and S2 audible. Irregular rate control. ABDOMEN: Soft, obese, nontender. No rebound. No guarding. NEUROLOGIC: She is awake, alert, oriented, communicative. EXTREMITIES: Bilateral legs, +1 edema. LABORATORY DATA: PT is 17.9, INR 1.54. Chemistry: Sodium 144, potassium 4.6, chloride 110, CO2 of 25, BUN 33, creatinine 1.3, blood sugar of 254. ASSESSMENT: 1. Congestive heart failure, acute on chronic, systolic. 2. Coronary artery disease, status post angioplasty. 3. History of cerebrovascular accident in the remote past. 4. Rwl-aqahvur-dnmludmmc diabetes. 5. Bilateral leg edema. 6. Mild renal insufficiency. 7. Chronic atrial fibrillation. PLAN: We will continue the patient on Coumadin. She will receive 10 mg today. We will continue on losartan. We will monitor blood sugar. I will increase her insulin to 10 units before meals t.i.d. She is on Vantin, we will continue that. We will follow up this patient in a.m. If she remains stable, she can be discharged. Jaosn Laws MD
[2017-07-23 07:07] LABS: INR 1.65 (0.93-1.08); PROTHROMBIN TIME 19.2 SECONDS (9.4-12.5)
[2017-07-23] MEDS: Levalbuterol 0.63 MG/3 ML Inhal Soln UD IH SCH ×3 (07:24→20:29)
[2017-07-23] MEDS: Insulin Lispro (humaLOG) MEDIUM Coverage SC SCH ×4 (08:05→23:26)
[2017-07-23] MEDS: Insulin Human NPH/Reg 70/30 Vial(3 ml) SC SCH ×3 (09:33→17:26)
[2017-07-23] MEDS: Cefpodoxime (Vantin) 200 mg Tab PO SCH ×2 (09:36→22:25)
--- NOTE | 2017-07-23 14:31 | PN ---
DATE: 07/23/2017 SUBJECTIVE: The patient is seen sitting in bed on telemetry. She feels fair. She continues to have some exertional dyspnea. Her cough is improved. Her leg edema appears persists. CURRENT MEDICATIONS: Remain Catapres 0.3 mg t.i.d., warfarin 5 mg daily, Cozaar 100 mg daily, Glucotrol 10 mg daily, Imdur 30 mg daily, Lasix 40 mg daily, Lipitor 40 mg daily, metoprolol 50 mg b.i.d., Norvasc 10 mg daily, Vantin and Xopenex. OBJECTIVE: GENERAL: She is an obese middle-aged woman. VITAL SIGNS: Her blood pressure is 176/70 with a pulse of 80 and atrial fibrillation, respirations are 14. She is afebrile. HEENT: No JVD. CHEST: Bilateral scattered rhonchi. HEART: PMI displaced laterally with the rhythm is irregularly irregular and systolic murmur is present in the left sternal border. ABDOMEN: Soft, obese, nontender, normoactive bowel sounds. EXTREMITIES: 2 to 3+ leg edema with chronic cellulitic changes. DIAGNOSTIC DATA: INR is 1.65. IMPRESSION: 1. Recent pneumonia, clinically improved. 2. Zfvpt-yg-jgfjkih congestive heart failure with recent decompensation. 3. Coronary artery disease, status post remote percutaneous coronary intervention. 4. Mild left ventricular dysfunction. 5. Moderate mitral and tricuspid regurgitation. 6. Chronic atrial fibrillation. 7. Prior cerebrovascular disease. 8. History of hypertension, diabetes and obesity. RECOMMENDATIONS: IV Lasix will be continued for now. Coumadin loading will continue as well. Resumption of her angiotensin receptor ary is advised at this time for better blood pressure control. Sodium restriction and leg elevation as well as compression stocking use are recommended for peripheral edema. We will continue to follow and make further recommendations as appropriate. Mauro Dowell MD
[2017-07-23] MEDS: metOLazone 2.5 MG TAB PO SCH (18:27)
--- NOTE | 2017-07-23 20:38 | PN ---
DATE: SUBJECTIVE: The patient is 66 years old, seen and examined, lying on bed, seems to be comfortable, states she gets very short of breath when she walks few feet. Denies any headache. No dizziness. PHYSICAL EXAMINATION: VITAL SIGNS: She is afebrile, pulse 61, respirations 20, blood pressure 141/65. LUNGS: Bilateral good airflow. Decreased at bases. HEART: S1 and S2 audible, regular, rate controlled. ABDOMEN: Soft, obese, nontender. No rebound. No guarding. NEUROLOGICAL: She is awake, alert, oriented, able to communicate and ambulatory. LABORATORY DATA: Her PT is 19.2, INR 1.65. Chemistry; blood sugar is 147. Her urine shows Klebsiella pneumoniae UTI, sensitive to cephalosporins. ASSESSMENT: 1. Congestive heart failure. 2. Bilateral leg edema with cellulitis. 3. Chronic atrial fibrillation. 4. Morbid obesity. 5. Bilateral basal atelectasis. 6. Mild renal insufficiency. 7. Non-insulin dependent diabetes. 8. History of cerebrovascular accident in the remote past. 9. Coronary artery disease status post angioplasty. 10. Tricuspid regurgitation. PLAN: We will continue patient on clonidine. She is on Coumadin. We will continue on same regimen for diabetes. She is getting Lasix 40 mg every 24 hours and add small dose of metolazone. Patient admitted in stable. We will make discharge plan in the a.m. She is a candidate for TCU, but because of insurance reason, she cannot be transferred there. Jason Laws MD
--- NOTE | 2017-07-24 05:35 | CP.PCM.PN ---
Subjective - Date & Time of Evaluation Date of Evaluation: 07/24/17 Time of Evaluation: 05:34 - Subjective Subjective: draft BP 190/65 hr 64/min asx rx, imdur 30mg po nowl Objective - Vital Signs/Intake and Output Vital Signs (last 24 hours): Temp Pulse Resp BP Pulse Ox 98.7 F 61 19 141/65 95 07/23/17 16:00 07/23/17 17:27 07/23/17 16:00 07/23/17 17:27 07/23/17 16:00 Intake and Output: 07/23/17 07/24/17 18:59 06:59 Intake Total 720 Balance 720 - Medications Medications: Current Medications Amlodipine Besylate (Norvasc) 10 mg PO DAILY [facility] Last Admin: 07/23/17 09:36 Dose: 10 mg Atorvastatin Calcium (Lipitor) 40 mg PO DIN [facility] Last Admin: 07/23/17 17:27 Dose: 40 mg Cefpodoxime Proxetil (Vantin) 200 mg PO Q12 [facility] Last Admin: 07/23/17 22:25 Dose: 200 mg Clonidine HCl (Catapres) 0.3 mg PO TID [facility] Last Admin: 07/23/17 17:25 Dose: 0.3 mg Furosemide (Lasix) 40 mg IV DAILY [facility] Last Admin: 07/23/17 09:34 Dose: 40 mg Glipizide (Glucotrol) 10 mg PO DAILY [facility] Last Admin: 07/23/17 09:32 Dose: Not Given Insulin Human Lispro (Humalog Med) 0 units SC ACHS [facility] PRN Reason: Protocol Last Admin: 07/23/17 23:26 Dose: Not Given Isosorbide Mononitrate (Imdur Er) 30 mg PO 0600 [facility] Last Admin: 07/23/17 06:02 Dose: 30 mg Isosorbide Mononitrate (Imdur) 30 mg PO STAT [facility] Stop: 07/24/17 05:34 Levalbuterol HCl (Xopenex) 0.63 mg IH TIDRESP [facility] Last Admin: 07/23/17 20:29 Dose: 0.63 mg Meclizine HCl (Antivert) 25 mg PO TID PRN PRN Reason: dizzy Metolazone (Zaroxolyn) 2.5 mg PO DAILY [facility] Last Admin: 07/23/17 18:27 Dose: 2.5 mg Metoprolol Tartrate (Lopressor) 50 mg PO BID [facility] Last Admin: 07/23/17 17:27 Dose: 50 mg Valsartan (Diovan) 320 mg PO DAILY [facility] Warfarin Sodium (Coumadin) 5 mg PO 1800 [facility] PRN Reason: Protocol Last Admin: 07/23/17 18:27 Dose: 5 mg - Labs Labs: 07/20/17 06:00 07/22/17 05:30 PT 19.2 SECONDS (9.4-12.5) H 07/23/17 06:30 INR 1.65 (0.93-1.08) H 07/23/17 06:30 APTT 50.7 Seconds (25.1-36.5) H 07/18/17 12:05
[2017-07-24 06:59] LABS: INR 1.74 (0.93-1.08); PROTHROMBIN TIME 20.2 SECONDS (9.4-12.5)
[2017-07-24] MEDS: Levalbuterol 0.63 MG/3 ML Inhal Soln UD IH SCH ×2 (07:59→13:41)
[2017-07-24] MEDS: Insulin Lispro (humaLOG) MEDIUM Coverage SC SCH ×3 (08:24→18:09)
[2017-07-24] MEDS: Insulin Human NPH/Reg 70/30 Vial(3 ml) SC SCH ×3 (09:55→18:09)
[2017-07-24] MEDS: Cefpodoxime (Vantin) 200 mg Tab PO SCH (09:56)
[2017-07-24] MEDS: metOLazone 2.5 MG TAB PO SCH (09:56)
[2017-07-24 11:32] VITALS: RESP 20
--- NOTE | 2017-07-24 11:38 | CP.PCM.PN ---
Subjective - Date & Time of Evaluation Date of Evaluation: 07/24/17 Time of Evaluation: 07:00 - Subjective Subjective: Stable on 3R. No CP or SOB but some "congestion" earlier. V/S noted. PE: Lungs: few rhonchi Cor.: irreg., S1S2, soft sys. murmur Abd.: soft Ext.: no edema Neuro.: alert Labs noted. INR 1.74 CT Chest noted. BC X2 NG at 5 days Urine + Klebs Objective - Vital Signs/Intake and Output Vital Signs (last 24 hours): Temp Pulse Resp BP Pulse Ox 97.8 F 94 H 20 199/102 H 99 07/24/17 08:00 07/24/17 09:59 07/24/17 08:00 07/24/17 09:59 07/24/17 08:00 Intake and Output: 07/24/17 07/24/17 06:59 18:59 Intake Total 900 Balance 900 - Medications Medications: Current Medications Amlodipine Besylate (Norvasc) 10 mg PO DAILY [facility] Last Admin: 07/24/17 09:59 Dose: 10 mg Atorvastatin Calcium (Lipitor) 40 mg PO DIN [facility] Last Admin: 07/23/17 17:27 Dose: 40 mg Clonidine HCl (Catapres) 0.3 mg PO TID [facility] Last Admin: 07/24/17 09:59 Dose: 0.3 mg Furosemide (Lasix) 40 mg IV DAILY [facility] Last Admin: 07/24/17 09:59 Dose: 40 mg Glipizide (Glucotrol) 10 mg PO DAILY [facility] Last Admin: 07/24/17 09:59 Dose: 10 mg Insulin Human Lispro (Humalog Med) 0 units SC ACHS [facility] PRN Reason: Protocol Last Admin: 07/24/17 08:24 Dose: Not Given Isosorbide Mononitrate (Imdur Er) 30 mg PO 0600 [facility] Last Admin: 07/24/17 07:31 Dose: Not Given Levalbuterol HCl (Xopenex) 0.63 mg IH TIDRESP [facility] Last Admin: 07/24/17 07:59 Dose: 0.63 mg Meclizine HCl (Antivert) 25 mg PO TID PRN PRN Reason: dizzy Metolazone (Zaroxolyn) 2.5 mg PO DAILY [facility] Last Admin: 07/24/17 09:56 Dose: 2.5 mg Metoprolol Tartrate (Lopressor) 50 mg PO BID [facility] Last Admin: 07/24/17 09:58 Dose: 50 mg Valsartan (Diovan) 320 mg PO DAILY [facility] Last Admin: 07/24/17 10:51 Dose: 320 mg Warfarin Sodium (Coumadin) 5 mg PO 1800 [facility] PRN Reason: Protocol Last Admin: 07/23/17 18:27 Dose: 5 mg - Labs Labs: 07/20/17 06:00 07/22/17 05:30 PT 20.2 SECONDS (9.4-12.5) H 07/24/17 05:30 INR 1.74 (0.93-1.08) H 07/24/17 05:30 APTT 50.7 Seconds (25.1-36.5) H 07/18/17 12:05 Assessment and Plan - Assessment and Plan (Free Text) Assessment: Cough/Dyspnea Possible Pneumonia UTI CHF CAD/Remote PCI CVA HBP Diabetes PN Obesity Chronic cellulitis Former Smoker Echo 05/15: Mild LVD, Mod. MR and TR. Plan: Warfarin. Monitor INR's AB as per Dr. Laws Continue IV Lasix OOB as lela.
[2017-07-24 17:33] VITALS: BP 147/72; PULSE 75; TEMP 99; O2SAT 95
--- NOTE | 2017-07-25 05:18 | DS ---
HOSPITAL COURSE: The patient is 66-year-old, seen and examined, sitting in chair, seems to be comfortable. She states she is having chills, shortness of breath on walking small distance. She states overall she does not feel that good. PHYSICAL EXAMINATION: VITAL SIGNS: She is afebrile, pulse 94, respirations 18, blood pressure 199/102. LUNGS: Bilateral good airflow. No rhonchi or crackle. HEART: S1 and S2 audible. Irregular rate control. ABDOMEN: Soft, obese, nontender. No rebound. No guarding. NEUROLOGIC: The patient is awake, alert, oriented, able to communicate. LABORATORY DATA: PT is 20.2, INR 1.74. Chemistry: Blood sugar is 208. ASSESSMENT: 1. Congestive heart failure. 2. Chronic atrial fibrillation. 3. Uncontrolled hypertension. 4. Morbid obesity. 5. Bilateral leg cellulitis. 6. Aok-hrqwcmb-ijlcdczvr diabetes. 7. Klebsiella urinary tract infection. 8. Coronary artery disease status post angioplasty. PLAN: We will give the patient 10 mg of Coumadin today. Jason Laws MD
== END 2017-07-24 19:24 | disposition home or self-care (01) | DRG 291 ==
LOC: ED 11:40 → ERH 13:26 → 3RNO 17:56
PROVIDERS: ADMIT Internal Medicine; ATTEND Internal Medicine
PROC: 3E0F7GC Introduction of Other Therapeutic Substance into Respiratory Tract, Via Natural or Artificial Opening (ICD-10-PCS; principal; 2017-07-19)
DX: I11.0 Hypertensive heart disease with heart failure (principal); I50.43 Acute on chronic combined systolic (congestive) and diastolic (congestive) heart failure; J18.9 Pneumonia, unspecified organism; I69.354 Hemiplegia and hemiparesis following cerebral infarction affecting left non-dominant side; J44.0 Chronic obstructive pulmonary disease with (acute) lower respiratory infection; L03.116 Cellulitis of left lower limb; L03.115 Cellulitis of right lower limb; N39.0 Urinary tract infection, site not specified; B96.1 Klebsiella pneumoniae [K. pneumoniae] as the cause of diseases classified elsewhere; I48.2 Chronic atrial fibrillation; E78.5 Hyperlipidemia, unspecified; I25.10 Atherosclerotic heart disease of native coronary artery without angina pectoris; E11.42 Type 2 diabetes mellitus with diabetic polyneuropathy; E66.01 Morbid (severe) obesity due to excess calories; I08.1 Rheumatic disorders of both mitral and tricuspid valves; Z68.35 Body mass index [BMI] 35.0-35.9, adult; Z79.01 Long term (current) use of anticoagulants; Z79.84 Long term (current) use of oral hypoglycemic drugs; Z95.5 Presence of coronary angioplasty implant and graft; Z87.891 Personal history of nicotine dependence

== ENCOUNTER 2018-05-21 15:41 | Inpatient (IN) | payer MEDICARE, OTHER ==
--- NOTE | 2018-05-21 16:42 | ED PDOC ---
Arrival/HPI - General Time Seen by Provider: 05/21/18 16:08 Historian: Patient - History of Present Illness Narrative History of Present Illness (Text): 05/21/18 16:40 67yo female with pmhx of hypertension, Dibates referred to ED by Dr. Moss for gangrenous left 2nd toe. Patient states she did not see a Reverse Engineer for over 2years and decided to see Dr. Moss today for her discolored toe who referred her to ED for possible amputation. She denies fever, chills, nausea, chest pain, dizziness, nausea, vomiting, any other complaint. Past Medical History - Provider Review Nursing Documentation Reviewed: Yes - Past History Past History: No Previous - Infectious Disease Hx of Infectious Diseases: None - Tetanus Immunization Tetanus Immunization: Unknown - Cardiac Hx Cardiac Disorders: Yes Hx Hypertension: Yes Other/Comment: stents placed in heart, 2 - Pulmonary Hx Respiratory Disorders: No - Neurological HX Cerebrovascular Accident: Yes ((Residual L-sided weakness)) - HEENT Hx HEENT Disorder: No - Renal Hx Renal Disorder: No - Endocrine/Metabolic Hx Endocrine Disorders: Yes Hx Diabetes Mellitus Type 2: Yes - Hematological/Oncological Hx Blood Disorders: Yes Hx Anemia: Yes - Integumentary Hx Dermatological Disorder: No - Musculoskeletal/Rheumatological Hx Arthritis: Yes Hx Falls: No - Gastrointestinal Hx Gastrointestinal Disorders: Yes Other/Comment: Increased Gas problems in abd since Stroke last year - Genitourinary/Gynecological Hx Genitourinary Disorders: No - Psychiatric Hx Psychophysiologic Disorder: No Hx Substance Use: No - Surgical History Hx Cardiac Catheterization: Yes Hx Coronary Stent: Yes (x2) Other/Comment: right leg r/t cellulitis 2015 - Anesthesia Hx Anesthesia: Yes Hx Anesthesia Reactions: No - Suicidal Assessment Feels Threatened In Home Enviroment: No Family/Social History - Physician Review Nursing Documentation Reviewed: Yes Family/Social History: Unknown Family HX Smoking Status: Former Smoker Hx Alcohol Use: No Hx Substance Use: No Hx Substance Use Treatment: No Allergies/Home Meds Allergies/Adverse Reactions: Allergies codeine Allergy (Verified 07/18/17 11:45) SHORTNESS OF BREATH Penicillins Allergy (Verified 07/18/17 11:45) ANAPHYLAXIS clopidogrel Adverse Reaction (Verified 07/18/17 11:45) SHORTNESS OF BREATH peaches Allergy (Severe, Uncoded 07/18/17 11:45) REDNESS nectarines Allergy (Mild, Uncoded 07/18/17 11:45) SHORTNESS OF BREATH Home Medications: Home Meds Medication Instructions Recorded Confirmed RX: Atorvastatin [Lipitor] 40 mg PO QOTHERDAY 06/15/15 07/18/17 RX: GlipiZIDE [Glucotrol] 10 mg PO DAILY 06/15/15 07/18/17 RX: Valsartan [Diovan] 160 mg PO DAILY 06/15/15 07/18/17 RX: amLODIPine [Norvasc] 10 mg PO DAILY 06/15/15 07/18/17 RX: Cholecalciferol [Vitamin D 5,000 iu PO QWK 01/30/17 07/18/17 1000 IU] RX: Meclizine [Meclizine*] 25 mg PO TID PRN 01/30/17 07/18/17 RX: Metoprolol Tartrate [Lopressor] 50 mg PO TID 01/30/17 07/18/17 RX: cloNIDine [Catapres] 0.3 mg PO TID 01/30/17 07/18/17 RX: Insulin Human (NPH)/Regular 8 units SC TID 05/05/17 07/18/17 [Novolin 70/30 (70/30 units/ml) 10 ml] Review of Systems - Physician Review All systems were reviewed & negative as marked: Yes - Review of Systems Constitutional: Normal Eyes: Normal ENT: Normal Respiratory: Normal Cardiovascular: Normal Gastrointestinal: Normal Genitourinary Female: Normal Musculoskeletal: Arthralgias (Left 2nd toe gangrene) Skin: Normal Neurological: Normal Endocrine: Normal Hemo/Lymphatic: Normal Psychiatric: Normal Physical Exam Vital Signs Reviewed: Yes Temperature: Afebrile Blood Pressure: Normal Pulse: Regular Respiratory Rate: Normal Appearance: Positive for: Well-Appearing, Non-Toxic, Comfortable Pain Distress: None Mental Status: Positive for: Alert and Oriented X 3 - Systems Exam Head: Present: Atraumatic, Normocephalic Pupils: Present: PERRL Extroacular Muscles: Present: EOMI Conjunctiva: Present: Normal Mouth: Present: Moist Mucous Membranes Neck: Present: Normal Range of Motion Respiratory/Chest: Present: Clear to Auscultation, Good Air Exchange. No: Respiratory Distress, Accessory Muscle Use Cardiovascular: Present: Regular Rate and Rhythm, Normal S1, S2. No: Murmurs Abdomen: No: Tenderness, Distention, Peritoneal Signs Back: Present: Normal Inspection Upper Extremity: Present: Normal Inspection. No: Cyanosis, Edema Lower Extremity: Present: Normal Inspection, Normal ROM, Tenderness, Other (Grangrenous left 2nd toe noted). No: Edema, CALF TENDERNESS, Marek's Sign Neurological: Present: GCS=15, CN II-XII Intact, Speech Normal Skin: Present: Warm, Dry, Normal Color. No: Rashes Psychiatric: Present: Alert, Oriented x 3, Normal Insight, Normal Concentration Medical Decision Making ED Course and Treatment: 05/22/18 00:17 67yo female in ED for admission secondary to left 2nd toe gangrene. Labs cgest xray EKG Vancomycin EKG Afib @ 99bpm. RSAD. N-stemi Chest xray IMPRESSION: Pulmonary vascular congestion and small bilateral pleural effusions. Left foot xray IMPRESSION: No demonstrated fracture or dislocation. No is evidence of periosteal reaction. Lab was reviewed and leukocytosis was noted. Case was RAFAEL Moss, pt's Reverse Engineer who referred her to the ED for admission. States pt should be admitted to [facility] for possible toe amputation. Case was RAFAEL Laws and she accepted pt to her service - RAD Interpretation Radiology Orders: 05/21/18 16:27 CHEST PORTABLE [RAD] Stat FOOT LEFT 3 VIEWS ROUTINE [RAD] Stat Disposition/Present on Arrival - Present on Arrival Any Indicators Present on Arrival: No History of DVT/PE: Yes History of Uncontrolled Diabetes: Yes Urinary Catheter: No History of Decub. Ulcer: No History Surgical Site Infection Following: None - Disposition Have Diagnosis and Disposition been Completed?: Yes Diagnosis: Pleural effusion, Cellulitis of lower leg, Gangrenous toe, Atrial fibrillation Disposition: HOSPITALIZED Disposition Time: 18:55 Patient Plan: Admission Patient Problems: Current Active Problems Problem Status Onset Cellulitis of lower leg Acute Gangrenous toe Acute Pleural effusion Acute Atrial fibrillation Chronic Condition: FAIR
--- NOTE | 2018-05-21 17:35 | RAD ---
Date of service: 05/21/2018 HISTORY: admission COMPARISON: Chest radiograph dated 07/18/2017. FINDINGS: LUNGS: Pulmonary vascular congestion. Bibasilar atelectasis. PLEURA: Small bilateral pleural effusions. CARDIOVASCULAR: Aortic atherosclerotic calcifications. Cardiomediastinal silhouette stably enlarged. OSSEOUS STRUCTURES: Unchanged. VISUALIZED UPPER ABDOMEN: Normal. OTHER FINDINGS: None. IMPRESSION: Pulmonary vascular congestion and small bilateral pleural effusions.
--- NOTE | 2018-05-21 17:36 | RAD ---
Date of service: 05/21/2018 PROCEDURE: Left Foot Radiographs. HISTORY: 2nd toe gangrene COMPARISON: None. FINDINGS: BONES: Diffuse osteopenia. No acute fracture. There plantar calcaneal spur. Achilles enthesopathy. JOINTS: Degenerative changes. SOFT TISSUES: Normal. OTHER FINDINGS: None. IMPRESSION: No demonstrated fracture or dislocation. No is evidence of periosteal reaction.
[2018-05-21 17:44] VITALS: BMI 32.1
[2018-05-21 18:37] LABS: BASO # 0.06 K/mm3 (0.0-2.0); BASO % 0.4 % (0.0-3.0); EOS # 0.1 (0.0-0.7); EOS % 0.3 % (1.5-5.0); GRAN # 12.57 (1.4-6.5); GRAN % 85.4 % (50.0-68.0); HEMOGLOBIN 10.3 g/dL (12.0-16.0); LYMPH # 1.5 (1.2-3.4); LYMPH % 9.9 % (22.0-35.0); MEAN CELL VOLUME 78.8 fl (80.0-105.0); MEAN CORPUSCULAR HEMOGLOBIN 25.1 pg (25.0-35.0); MEAN CORPUSCULAR HGB CONC 31.9 g/dl (31.0-37.0); MEAN PLATELET VOLUME 8.7 fl (7.0-11.0); MONO # 0.6 (0.1-0.6); RBC 4.1 10^6/uL (3.5-6.1); RED CELL DISTRIBUTION WIDTH 15.1 % (11.5-14.5); WHITE BLOOD COUNT 14.7 10^3/uL (4.5-11.0)
[2018-05-21 18:45] LABS: INR 2.31; PROTHROMBIN TIME 25.6 SECONDS (9.4-12.5)
[2018-05-21 18:47] LABS: ALBUMIN 3.8 g/dL (3.0-4.8); CALCIUM 9.5 mg/dL (8.4-10.5)
[2018-05-21] MEDS ORDERED: Vancomycin 1gm in NS 250ml 1 GM/250 ML BAG IVPB STA (18:50)
[2018-05-21] MEDS ORDERED: Oxycodone/Acetaminophen 5/325 mg Tab PO PRN (20:41)
[2018-05-21 21:09] LABS: HDL CHOLESTEROL 37 mg/dL (29-60)
[2018-05-21 21:19] LABS: LDL CHOLESTEROL 49 mg/dL (0-129)
[2018-05-21] MEDS: Insulin Lispro (HUMAlog) HIGH Coverage SC SCH (23:31)
--- NOTE | 2018-05-22 00:20 | CARD ---
APPROVED REPORT Date of service: 05/21/2018 EKG Measurement Heart [id number] <Conclusion> Atrial fibrillation Right superior axis deviation Pulmonary disease pattern Nonspecific T wave abnormality, probably digitalis effect Abnormal ECG
--- NOTE | 2018-05-22 00:48 | HP ---
DATE OF EXAM: 05/21/2018 HISTORY OF PRESENT ILLNESS: The patient is [id number] known to me from previous admission, was seen by Dr. Moss for evaluation and management of worsening wound of gangrenous left second toe. The patient has been followed by [facility]. The patient has been following with her telegraph lineman for almost for 2 years, somebody told her to follow Dr. Moss, so she came here today who advised her to come to emergency room because of worsening wound and toe look discolored, so it was decided to have amputation done. The patient denies any fever or chills. No history of nausea or vomiting. The patient is very noncompliant and has uncontrolled blood pressure. The patient was admitted by me last year in 06/2017 for congestive heart failure and she does have a history of chronic AFib and bilateral leg cellulitis. PAST MEDICAL HISTORY: She has significant past medical history of: 1. Uncontrolled hypertension. 2. Chronic AFib, on Coumadin. 3. Insulin-dependent diabetes. 4. History of recurrent UTI. 5. History of coronary artery disease, status post multiple angioplasties. 6. History of left knee arthroscopic procedure. 7. History of ventral hernia repair. 8. Chronic bilateral leg cellulitis. 9. Peripheral vascular disease. SOCIAL HISTORY: She was a heavy smoker, quit 3-4 years ago. Socially drinks. No history of drug abuse. ALLERGIES: SHE IS ALLERGIC TO: 1. CODEINE. 2. PENICILLIN. 3. PLAVIX. 4. PEACHES. 5. NECTARINES. MEDICATIONS AT HOME: The patient is on: 1. Clonidine 0.3 three times a day. 2. Norvasc 10 mg daily. 3. Metoprolol 50 mg 3 times a day. 4. Metformin 1000 twice a day. 5. Isosorbide 30 mg daily. 6. Insulin. 7. Glipizide 10 mg daily. 8. Lipitor 40 mg daily. 9. Coumadin. 10. Lasix 40 mg daily. REVIEW OF SYSTEMS: Significant for bilateral leg mild erythema. PHYSICAL EXAMINATION: GENERAL: She is awake, alert, oriented, and communicative. VITAL SIGNS: She is afebrile, pulse 85, respirations 18, and blood pressure 148/78. LUNGS: Bilateral fair airflow. No rhonchi or crackles. HEART: S1 and S2 audible. ABDOMEN: Soft and nontender. No rebound. No guarding. NEUROLOGIC: She is awake, alert, oriented, and able to communicate. EXTREMITIES: Left toe is in dressing. LABORATORY DATA: WBC 14.7, hemoglobin 10.3, hematocrit 32.3, and platelet 277. PT 25.6. INR 2.31. Chemistry; sodium 142, potassium 4.5, chloride 112, CO2 of 19, BUN 24, creatinine 1.2, and blood sugar 175. Alkaline phosphatase 200. ASSESSMENT: 1. Left second toe gangrene. 2. Peripheral vascular disease. 3. Hypertension. 4. Poorly controlled diabetes. 5. History of coronary artery disease. 6. Chronic atrial fibrillation. PLAN: The patient will be admitted. We will get Cardiology clearance by Dr. Cade who seems to be the patient's remote sensing program manager. Get Dr. Aguilar's input for antibiotics. We will hold Coumadin for now. Cardiology clearance for now. We will get Dr. Moss for evaluation and further management of wound and possible surgical intervention, monitor blood sugar, hold Coumadin, and we will reevaluate in a.m. Jason Laws MD
[2018-05-22] MEDS: Aztreonam 1 Gm in NS 100mL 100 ML IVPB SCH ×4 (05:14→21:49)
[2018-05-22 07:09] LABS: BASO # 0.04 K/mm3 (0.0-2.0); BASO % 0.4 % (0.0-3.0); EOS # 0.1 (0.0-0.7); EOS % 1.5 % (1.5-5.0); GRAN # 7.6 (1.4-6.5); GRAN % 80.3 % (50.0-68.0); HEMOGLOBIN 9.8 g/dL (12.0-16.0); LYMPH # 0.7 (1.2-3.4); MEAN CELL VOLUME 78.9 fl (80.0-105.0); MEAN CORPUSCULAR HEMOGLOBIN 24.4 pg (25.0-35.0); MEAN CORPUSCULAR HGB CONC 30.9 g/dl (31.0-37.0); MEAN PLATELET VOLUME 8.6 fl (7.0-11.0); MONO % 10.8 % (1.0-6.0); RBC 4.02 10^6/uL (3.5-6.1); WHITE BLOOD COUNT 9.5 10^3/uL (4.5-11.0)
[2018-05-22 07:20] LABS: ALBUMIN 3.5 g/dL (3.0-4.8); CALCIUM 8.9 mg/dL (8.4-10.5)
[2018-05-22 07:35] LABS: FREE T4 1.47 ng/dL (0.78-2.19)
[2018-05-22] MEDS: Insulin Lispro (HUMAlog) HIGH Coverage SC SCH ×4 (08:49→21:50)
--- NOTE | 2018-05-22 10:23 | CP.PCM.CON ---
<Chavo Ha - Last Filed: 05/22/18 13:13> History of Present Illness - History of Present Illness History of Present Illness: ID Consult Note 67 year old female with past medical history of HTN, Chronic A-fib on anticoagulation, DM2, CAD, PVD, and recurrent UTI's presented to the hospital after being referred to the hospital by podiatry. Patient has 2 left gangrenous toe that she first noticed 2 months ago. She went to see a lighting fixtures decorator yesterday and was told to come to the hospital for a possible amputation. Patient states she does not have any pain in her foot. Denies chest pain, shortness of breath, nausea, vomiting, diarrhea, fevers, dysuria, numbness, tingling. Medical Hx: As above Surgical Hx: Right lower leg surgery for cellulitis Social Hx: Former smoker, quit 5 years ago. Social alcohol use. Denies illicit drug use Allergies: Codeine, Penicillin, Plavix, Peaches, Nectarines Medications: Reviewed, as per MAR Review of Systems - Review of Systems Review of Systems: 12 point ROS as per HPI, otherwise negative Past Patient History - Infectious Disease Hx of Infectious Diseases: None - Tetanus Immunizations Tetanus Immunization: Unknown - Past Social History Smoking Status: Former Smoker - CARDIAC Hx Cardiac Disorders: Yes Hx Hypertension: Yes Other/Comment: stents placed in heart, 2 - PULMONARY Hx Respiratory Disorders: No - NEUROLOGICAL HX Cerebrovascular Accident: Yes ((Residual L-sided weakness)) - HEENT Hx HEENT Problems: No - RENAL Hx Chronic Kidney Disease: No - ENDOCRINE/METABOLIC Hx Endocrine Disorders: Yes Hx Diabetes Mellitus Type 2: Yes - HEMATOLOGICAL/ONCOLOGICAL Hx Blood Disorders: Yes Hx Anemia: Yes - INTEGUMENTARY Hx Dermatological Problems: No - MUSCULOSKELETAL/RHEUMATOLOGICAL Hx Arthritis: Yes Hx Falls: No - GASTROINTESTINAL Hx Gastrointestinal Disorders: Yes Other/Comment: Increased Gas problems in abd since Stroke last year - GENITOURINARY/GYNECOLOGICAL Hx Genitourinary Disorders: No - PSYCHIATRIC Hx Psychophysiologic Disorder: No Hx Substance Use: No - SURGICAL HISTORY Hx Cardiac Catheterization: Yes Hx Coronary Stent: Yes (x2) Other/Comment: right leg r/t cellulitis 2015 - ANESTHESIA Hx Anesthesia: Yes Hx Anesthesia Reactions: No Meds Allergies/Adverse Reactions: Allergies Allergy/AdvReac Type Severity Reaction Status Date / Time codeine Allergy SHORTNESS Verified 07/18/17 11:45 OF BREATH Penicillins Allergy ANAPHYLAXIS Verified 07/18/17 11:45 clopidogrel AdvReac SHORTNESS Verified 07/18/17 11:45 OF BREATH peaches Allergy Severe REDNESS Uncoded 07/18/17 11:45 nectarines Allergy Mild SHORTNESS Uncoded 07/18/17 11:45 OF BREATH - Medications Medications: Current Medications Acetaminophen (Tylenol 325mg Tab) 650 mg PO Q6H PRN PRN Reason: Fever >100.4 F Amlodipine Besylate (Norvasc) 10 mg PO DAILY [facility] Last Admin: 05/22/18 09:08 Dose: 10 mg Atorvastatin Calcium (Lipitor) 40 mg PO QOTHERDAY [facility] Clonidine HCl (Catapres) 0.3 mg PO TID [facility] Last Admin: 05/22/18 09:08 Dose: 0.3 mg Glipizide (Glucotrol) 10 mg PO DAILY [facility] Last Admin: 05/22/18 09:08 Dose: 10 mg Aztreonam (Azactam 1 Gm) 100 mls @ 100 mls/hr IVPB Q8 [facility]; Protocol Stop: 05/28/18 22:01 Last Admin: 05/22/18 05:14 Dose: 100 mls/hr Insulin Human Lispro (Humalog High) 0 units SC ACHS [facility]; Protocol Last Admin: 05/22/18 08:49 Dose: Not Given Isosorbide Mononitrate (Imdur Er) 30 mg PO 0600 [facility] Last Admin: 05/22/18 05:13 Dose: 30 mg Meclizine HCl (Antivert) 25 mg PO TID PRN PRN Reason: dizzy Metformin HCl (Glucophage) 1,000 mg PO 0800,1700 [facility] Last Admin: 05/22/18 09:08 Dose: 1,000 mg Metoprolol Tartrate (Lopressor) 50 mg PO TID [facility] Last Admin: 05/22/18 09:08 Dose: 50 mg Oxycodone/Acetaminophen (Percocet 5/325 Mg Tab) 1 tab PO Q6H PRN PRN Reason: Pain, moderate (4-7) Stop: 05/24/18 20:42 Physical Exam - Constitutional Appears: Non-toxic, No Acute Distress - Head Exam Head Exam: ATRAUMATIC, NORMAL INSPECTION, NORMOCEPHALIC - ENT Exam ENT Exam: Mucous Membranes Moist - Respiratory Exam Respiratory Exam: Clear to Auscultation Bilateral, NORMAL BREATHING PATTERN - Cardiovascular Exam Cardiovascular Exam: Irregular Rhythm, +S1, +S2 - GI/Abdominal Exam GI & Abdominal Exam: Normal Bowel Sounds, Soft. absent: Tenderness - Extremities Exam Extremities exam: Positive for: normal inspection. Negative for: pedal edema - Neurological Exam Neurological exam: Alert, Oriented x3 - Psychiatric Exam Psychiatric exam: Normal Affect, Normal Mood - Skin Skin Exam: Dry, Intact, Warm Results - Vital Signs Recent Vital Signs: Last Vital Signs Temp 98.5 F 05/22/18 06:00 Pulse 102 H 05/22/18 09:08 Resp 95 H 05/22/18 06:00 BP 195/64 H 05/22/18 09:08 Pulse Ox 20 L 05/22/18 06:00 - Labs Result Diagrams: 05/22/18 06:45 05/22/18 06:45 Labs: Laboratory Results - last 24 hr 05/21/18 05/21/18 05/21/18 15:00 18:30 18:30 WBC 14.7 H RBC 4.10 Hgb 10.3 L Hct 32.3 L MCV 78.8 L D MCH 25.1 MCHC 31.9 RDW 15.1 H Plt Count 277 MPV 8.7 Gran % 85.4 H Lymph % (Auto) 9.9 L [place] % (Auto) 4.0 Eos % (Auto) 0.3 L Baso % (Auto) 0.4 Gran # 12.57 H Lymph # (Auto) 1.5 [place] # (Auto) 0.6 Eos # (Auto) 0.1 Baso # (Auto) 0.06 PT INR APTT Sodium 142 Potassium 4.5 Chloride 112 H Carbon Dioxide 19 L Anion Gap 15 BUN 24 H Creatinine 1.2 Est GFR ( Amer) 54 Est GFR (Non-Af Amer) 45 POC Glucose (mg/dL) Random Glucose 175 H Calcium 9.5 Total Bilirubin 1.0 AST 20 ALT 18 Alkaline Phosphatase 200 H D Total Protein 7.7 Albumin 3.8 Globulin 3.9 Albumin/Globulin Ratio 1.0 L Triglycerides 117 Cholesterol 115 L LDL Cholesterol Direct 49 HDL Cholesterol 37 Free T4 TSH 3rd Generation 05/21/18 05/21/18 05/22/18 18:30 22:46 06:45 WBC 9.5 D RBC 4.02 Hgb 9.8 L Hct 31.7 L MCV 78.9 L MCH 24.4 L MCHC 30.9 L RDW 15.0 H Plt Count 241 MPV 8.6 Gran % 80.3 H Lymph % (Auto) 7.0 L [place] % (Auto) 10.8 H Eos % (Auto) 1.5 Baso % (Auto) 0.4 Gran # 7.60 H Lymph # (Auto) 0.7 L [place] # (Auto) 1.0 H Eos # (Auto) 0.1 Baso # (Auto) 0.04 PT 25.6 H INR 2.31 APTT 44.0 H Sodium Potassium Chloride Carbon Dioxide Anion Gap BUN Creatinine Est GFR ( Amer) Est GFR (Non-Af Amer) POC Glucose (mg/dL) 171 H Random Glucose Calcium Total Bilirubin AST ALT Alkaline Phosphatase Total Protein Albumin Globulin Albumin/Globulin Ratio Triglycerides Cholesterol LDL Cholesterol Direct HDL Cholesterol Free T4 TSH 3rd Generation 05/22/18 05/22/18 05/22/18 06:45 06:45 06:59 WBC RBC Hgb Hct MCV MCH MCHC RDW Plt Count MPV Gran % Lymph % (Auto) [place] % (Auto) Eos % (Auto) Baso % (Auto) Gran # Lymph # (Auto) [place] # (Auto) Eos # (Auto) Baso # (Auto) PT INR APTT Sodium 143 Potassium 4.2 Chloride 113 H Carbon Dioxide 21 Anion Gap 13 BUN 21 Creatinine 1.1 Est GFR ( Amer) 60 Est GFR (Non-Af Amer) 50 POC Glucose (mg/dL) 147 H Random Glucose 158 H Calcium 8.9 Total Bilirubin 0.9 AST 19 ALT 20 Alkaline Phosphatase 178 H Total Protein 7.0 Albumin 3.5 Globulin 3.6 Albumin/Globulin Ratio 1.0 L Triglycerides Cholesterol LDL Cholesterol Direct HDL Cholesterol Free T4 1.47 TSH 3rd Generation 3.57 Assessment & Plan - Assessment and Plan (Free Text) Plan: Left second toe gangrene Hx of PVD Hx of CAD Hx of A-fib Hx of DM2 Hx of HTN Plan Foot x-ray reviewed, no evidence of bone infection GORAN's ordered as per podiatry Follow up podiatry recommendations Will start Aztreonam Blood cultures pending Will continue to monitor closely Leland, PGY-3 <Ken Mueller S - Last Filed: 05/22/18 14:38> Meds - Medications Medications: Current Medications Acetaminophen (Tylenol 325mg Tab) 650 mg PO Q6H PRN PRN Reason: Fever >100.4 F Amlodipine Besylate (Norvasc) 10 mg PO DAILY [facility] Last Admin: 05/22/18 09:08 Dose: 10 mg Amlodipine Besylate (Norvasc) 10 mg PO DAILY [facility] Last Admin: 05/22/18 13:50 Dose: 10 mg Atorvastatin Calcium (Lipitor) 40 mg PO QOTHERDAY [facility] Clonidine HCl (Catapres) 0.3 mg PO TID [facility] Last Admin: 05/22/18 13:50 Dose: 0.3 mg Glipizide (Glucotrol) 10 mg PO DAILY [facility] Last Admin: 05/22/18 09:08 Dose: 10 mg Aztreonam (Azactam 1 Gm) 100 mls @ 100 mls/hr IVPB Q8 [facility]; Protocol Stop: 05/28/18 22:01 Last Admin: 05/22/18 13:51 Dose: 100 mls/hr Insulin Human Lispro (Humalog High) 0 units SC ACHS [facility]; Protocol Last Admin: 05/22/18 11:52 Dose: Not Given Isosorbide Mononitrate (Imdur Er) 30 mg PO 0600 [facility] Last Admin: 05/22/18 05:13 Dose: 30 mg Meclizine HCl (Antivert) 25 mg PO TID PRN PRN Reason: dizzy Metformin HCl (Glucophage) 1,000 mg PO 0800,1700 [facility] Last Admin: 05/22/18 09:08 Dose: 1,000 mg Metoprolol Tartrate (Lopressor) 50 mg PO TID [facility] Last Admin: 05/22/18 13:50 Dose: 50 mg Oxycodone/Acetaminophen (Percocet 5/325 Mg Tab) 1 tab PO Q6H PRN PRN Reason: Pain, moderate (4-7) Stop: 05/24/18 20:42 Silver Sulfadiazine (Silvadene 1% 25 Gm) 0 gm TP BID [facility] Results - Vital Signs Recent Vital Signs: Last Vital Signs Temp 98.5 F 05/22/18 06:00 Pulse 80 05/22/18 13:50 Resp 95 H 05/22/18 06:00 BP 175/79 H 05/22/18 13:50 Pulse Ox 20 L 05/22/18 06:00 - Labs Result Diagrams: 05/22/18 06:45 05/22/18 06:45 Labs: Laboratory Results - last 24 hr 05/21/18 05/21/18 05/21/18 15:00 18:30 18:30 WBC 14.7 H RBC 4.10 Hgb 10.3 L Hct 32.3 L MCV 78.8 L D MCH 25.1 MCHC 31.9 RDW 15.1 H Plt Count 277 MPV 8.7 Gran % 85.4 H Lymph % (Auto) 9.9 L [place] % (Auto) 4.0 Eos % (Auto) 0.3 L Baso % (Auto) 0.4 Gran # 12.57 H Lymph # (Auto) 1.5 [place] # (Auto) 0.6 Eos # (Auto) 0.1 Baso # (Auto) 0.06 PT INR APTT Sodium 142 Potassium 4.5 Chloride 112 H Carbon Dioxide 19 L Anion Gap 15 BUN 24 H Creatinine 1.2 Est GFR ( Amer) 54 Est GFR (Non-Af Amer) 45 POC Glucose (mg/dL) Random Glucose 175 H Hemoglobin A1c Calcium 9.5 Total Bilirubin 1.0 AST 20 ALT 18 Alkaline Phosphatase 200 H D Total Protein 7.7 Albumin 3.8 Globulin 3.9 Albumin/Globulin Ratio 1.0 L Triglycerides 117 Cholesterol 115 L LDL Cholesterol Direct 49 HDL Cholesterol 37 Free T4 TSH 3rd Generation 05/21/18 05/21/18 05/22/18 18:30 22:46 06:45 WBC 9.5 D RBC 4.02 Hgb 9.8 L Hct 31.7 L MCV 78.9 L MCH 24.4 L MCHC 30.9 L RDW 15.0 H Plt Count 241 MPV 8.6 Gran % 80.3 H Lymph % (Auto) 7.0 L [place] % (Auto) 10.8 H Eos % (Auto) 1.5 Baso % (Auto) 0.4 Gran # 7.60 H Lymph # (Auto) 0.7 L [place] # (Auto) 1.0 H Eos # (Auto) 0.1 Baso # (Auto) 0.04 PT 25.6 H INR 2.31 APTT 44.0 H Sodium Potassium Chloride Carbon Dioxide Anion Gap BUN Creatinine Est GFR ( Amer) Est GFR (Non-Af Amer) POC Glucose (mg/dL) 171 H Random Glucose Hemoglobin A1c Calcium Total Bilirubin AST ALT Alkaline Phosphatase Total Protein Albumin Globulin Albumin/Globulin Ratio Triglycerides Cholesterol LDL Cholesterol Direct HDL Cholesterol Free T4 TSH 3rd Generation 05/22/18 05/22/18 05/22/18 06:45 06:45 06:45 WBC RBC Hgb Hct MCV MCH MCHC RDW Plt Count MPV Gran % Lymph % (Auto) [place] % (Auto) Eos % (Auto) Baso % (Auto) Gran # Lymph # (Auto) [place] # (Auto) Eos # (Auto) Baso # (Auto) PT INR APTT Sodium 143 Potassium 4.2 Chloride 113 H Carbon Dioxide 21 Anion Gap 13 BUN 21 Creatinine 1.1 Est GFR ( Amer) 60 Est GFR (Non-Af Amer) 50 POC Glucose (mg/dL) Random Glucose 158 H Hemoglobin A1c 6.1 Calcium 8.9 Total Bilirubin 0.9 AST 19 ALT 20 Alkaline Phosphatase 178 H Total Protein 7.0 Albumin 3.5 Globulin 3.6 Albumin/Globulin Ratio 1.0 L Triglycerides Cholesterol LDL Cholesterol Direct HDL Cholesterol Free T4 1.47 TSH 3rd Generation 3.57 05/22/18 05/22/18 06:59 11:50 WBC RBC Hgb Hct MCV MCH MCHC RDW Plt Count MPV Gran % Lymph % (Auto) [place] % (Auto) Eos % (Auto) Baso % (Auto) Gran # Lymph # (Auto) [place] # (Auto) Eos # (Auto) Baso # (Auto) PT INR APTT Sodium Potassium Chloride Carbon Dioxide Anion Gap BUN Creatinine Est GFR ( Amer) Est GFR (Non-Af Amer) POC Glucose (mg/dL) 147 H 123 H Random Glucose Hemoglobin A1c Calcium Total Bilirubin AST ALT Alkaline Phosphatase Total Protein Albumin Globulin Albumin/Globulin Ratio Triglycerides Cholesterol LDL Cholesterol Direct HDL Cholesterol Free T4 TSH 3rd Generation Assessment & Plan - Assessment and Plan (Free Text) Plan: Infectious diseases Attending Physician Attestation Patient seen and examined, discussed with medical center manager. I have reviewed the patient's history of present illness, past medical, social, personal and family histories, pertinent physical exam findings, course so far in this hospital admission, pertinent laboratory and imaging results. I agree with the above findings, assessment and plan. In addition, started Aztreonam and a dose of Vancomycin pending wound cx in this patient with left 2nd toe gangrene. Follow up plans of Podiatry, will need GORAN's and it has been ordered and will monitor clinically.
[2018-05-22] MEDS: Insulin Human NPH/Reg 70/30 Vial(3 ml) SC SCH ×3 (11:52→17:02)
--- NOTE | 2018-05-22 12:25 | CP.PCM.CON ---
History of Present Illness - History of Present Illness History of Present Illness: Resident Consult Note for Surgery: Dr. Morrell Patient is a 67 year old female with past medical history T2DM, HTN, HLD, CAD, afib on coumadin, abdominal hernia, CVA who was admitted for evaluation of gangrenous toe for possible amputation. Surgery was consulted for evaluation of abdominal wound. Patient states that the wound began as an itch about a month prior. Patient denies any injury or trauma to the area. She has been regularly following up with Dr. Morrell for management, her most recent visit being two weeks prior. Patient states that overall the wound seems to have improved. Denies pain, fevers, chills, nausea, vomiting, diarrhea, constipation. 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; lives alone in third story apartment with no jerome vator FHx: denies any history of HTN, DM, or [place] Allergies: codeine, penicillins, clopidogrel, peaches, nectarines Review of Systems - Review of Systems All systems: reviewed and no additional remarkable complaints except (as stated in HPI) Past Patient History - Infectious Disease Hx of Infectious Diseases: None - Tetanus Immunizations Tetanus Immunization: Unknown - Past Social History Smoking Status: Former Smoker - CARDIAC Hx Cardiac Disorders: Yes Hx Hypertension: Yes Other/Comment: stents placed in heart, 2 - PULMONARY Hx Respiratory Disorders: No - NEUROLOGICAL HX Cerebrovascular Accident: Yes ((Residual L-sided weakness)) - HEENT Hx HEENT Problems: No - RENAL Hx Chronic Kidney Disease: No - ENDOCRINE/METABOLIC Hx Endocrine Disorders: Yes Hx Diabetes Mellitus Type 2: Yes - HEMATOLOGICAL/ONCOLOGICAL Hx Blood Disorders: Yes Hx Anemia: Yes - INTEGUMENTARY Hx Dermatological Problems: No - MUSCULOSKELETAL/RHEUMATOLOGICAL Hx Arthritis: Yes Hx Falls: No - GASTROINTESTINAL Hx Gastrointestinal Disorders: Yes Other/Comment: Increased Gas problems in abd since Stroke last year - GENITOURINARY/GYNECOLOGICAL Hx Genitourinary Disorders: No - PSYCHIATRIC Hx Psychophysiologic Disorder: No Hx Substance Use: No - SURGICAL HISTORY Hx Cardiac Catheterization: Yes Hx Coronary Stent: Yes (x2) Other/Comment: right leg r/t cellulitis 2015 - ANESTHESIA Hx Anesthesia: Yes Hx Anesthesia Reactions: No Meds Allergies/Adverse Reactions: Allergies Allergy/AdvReac Type Severity Reaction Status Date / Time codeine Allergy SHORTNESS Verified 07/18/17 11:45 OF BREATH Penicillins Allergy ANAPHYLAXIS Verified 07/18/17 11:45 clopidogrel AdvReac SHORTNESS Verified 07/18/17 11:45 OF BREATH peaches Allergy Severe REDNESS Uncoded 07/18/17 11:45 nectarines Allergy Mild SHORTNESS Uncoded 07/18/17 11:45 OF BREATH - Medications Medications: Current Medications Acetaminophen (Tylenol 325mg Tab) 650 mg PO Q6H PRN PRN Reason: Fever >100.4 F Amlodipine Besylate (Norvasc) 10 mg PO DAILY [facility] Last Admin: 05/22/18 09:08 Dose: 10 mg Atorvastatin Calcium (Lipitor) 40 mg PO QOTHERDAY [facility] Clonidine HCl (Catapres) 0.3 mg PO TID [facility] Last Admin: 05/22/18 09:08 Dose: 0.3 mg Glipizide (Glucotrol) 10 mg PO DAILY [facility] Last Admin: 05/22/18 09:08 Dose: 10 mg Aztreonam (Azactam 1 Gm) 100 mls @ 100 mls/hr IVPB Q8 [facility]; Protocol Stop: 05/28/18 22:01 Last Admin: 05/22/18 05:14 Dose: 100 mls/hr Insulin Human Lispro (Humalog High) 0 units SC ACHS [facility]; Protocol Last Admin: 05/22/18 11:52 Dose: Not Given Isosorbide Mononitrate (Imdur Er) 30 mg PO 0600 [facility] Last Admin: 05/22/18 05:13 Dose: 30 mg Meclizine HCl (Antivert) 25 mg PO TID PRN PRN Reason: dizzy Metformin HCl (Glucophage) 1,000 mg PO 0800,1700 [facility] Last Admin: 05/22/18 09:08 Dose: 1,000 mg Metoprolol Tartrate (Lopressor) 50 mg PO TID [facility] Last Admin: 05/22/18 09:08 Dose: 50 mg Oxycodone/Acetaminophen (Percocet 5/325 Mg Tab) 1 tab PO Q6H PRN PRN Reason: Pain, moderate (4-7) Stop: 05/24/18 20:42 Physical Exam - Constitutional Appears: Non-toxic, No Acute Distress - Head Exam Head Exam: ATRAUMATIC, NORMOCEPHALIC - Eye Exam Eye Exam: EOMI, Normal appearance - ENT Exam ENT Exam: Mucous Membranes Moist - Respiratory Exam Respiratory Exam: Clear to Auscultation Bilateral, NORMAL BREATHING PATTERN. absent: Accessory Muscle Use, Respiratory Distress - Cardiovascular Exam Cardiovascular Exam: Irregular Rhythm, +S1, +S2 - GI/Abdominal Exam GI & Abdominal Exam: Hernia, Normal Bowel Sounds, Soft. absent: Distended, Firm, Guarding, Rebound, Tenderness Additional comments: abdominal wound with small amount of yellow purulent non odorous drainage - Extremities Exam Extremities exam: Negative for: calf tenderness Additional comments: venous stasis changes - Neurological Exam Neurological exam: Alert, Oriented x3 - Psychiatric Exam Psychiatric exam: Normal Affect, Normal Mood - Skin Skin Exam: Dry, Intact, Warm Results - Vital Signs Recent Vital Signs: Last Vital Signs Temp 98.5 F 05/22/18 06:00 Pulse 102 H 05/22/18 09:08 Resp 95 H 05/22/18 06:00 BP 195/64 H 05/22/18 09:08 Pulse Ox 20 L 05/22/18 06:00 - Labs Result Diagrams: 05/22/18 06:45 05/22/18 06:45 Labs: Laboratory Results - last 24 hr 05/21/18 05/21/18 05/21/18 15:00 18:30 18:30 WBC 14.7 H RBC 4.10 Hgb 10.3 L Hct 32.3 L MCV 78.8 L D MCH 25.1 MCHC 31.9 RDW 15.1 H Plt Count 277 MPV 8.7 Gran % 85.4 H Lymph % (Auto) 9.9 L [place] % (Auto) 4.0 Eos % (Auto) 0.3 L Baso % (Auto) 0.4 Gran # 12.57 H Lymph # (Auto) 1.5 [place] # (Auto) 0.6 Eos # (Auto) 0.1 Baso # (Auto) 0.06 PT INR APTT Sodium 142 Potassium 4.5 Chloride 112 H Carbon Dioxide 19 L Anion Gap 15 BUN 24 H Creatinine 1.2 Est GFR ( Amer) 54 Est GFR (Non-Af Amer) 45 POC Glucose (mg/dL) Random Glucose 175 H Calcium 9.5 Total Bilirubin 1.0 AST 20 ALT 18 Alkaline Phosphatase 200 H D Total Protein 7.7 Albumin 3.8 Globulin 3.9 Albumin/Globulin Ratio 1.0 L Triglycerides 117 Cholesterol 115 L LDL Cholesterol Direct 49 HDL Cholesterol 37 Free T4 TSH 3rd Generation 05/21/18 05/21/18 05/22/18 18:30 22:46 06:45 WBC 9.5 D RBC 4.02 Hgb 9.8 L Hct 31.7 L MCV 78.9 L MCH 24.4 L MCHC 30.9 L RDW 15.0 H Plt Count 241 MPV 8.6 Gran % 80.3 H Lymph % (Auto) 7.0 L [place] % (Auto) 10.8 H Eos % (Auto) 1.5 Baso % (Auto) 0.4 Gran # 7.60 H Lymph # (Auto) 0.7 L [place] # (Auto) 1.0 H Eos # (Auto) 0.1 Baso # (Auto) 0.04 PT 25.6 H INR 2.31 APTT 44.0 H Sodium Potassium Chloride Carbon Dioxide Anion Gap BUN Creatinine Est GFR ( Amer) Est GFR (Non-Af Amer) POC Glucose (mg/dL) 171 H Random Glucose Calcium Total Bilirubin AST ALT Alkaline Phosphatase Total Protein Albumin Globulin Albumin/Globulin Ratio Triglycerides Cholesterol LDL Cholesterol Direct HDL Cholesterol Free T4 TSH 3rd Generation 05/22/18 05/22/18 05/22/18 06:45 06:45 06:59 WBC RBC Hgb Hct MCV MCH MCHC RDW Plt Count MPV Gran % Lymph % (Auto) [place] % (Auto) Eos % (Auto) Baso % (Auto) Gran # Lymph # (Auto) [place] # (Auto) Eos # (Auto) Baso # (Auto) PT INR APTT Sodium 143 Potassium 4.2 Chloride 113 H Carbon Dioxide 21 Anion Gap 13 BUN 21 Creatinine 1.1 Est GFR ( Amer) 60 Est GFR (Non-Af Amer) 50 POC Glucose (mg/dL) 147 H Random Glucose 158 H Calcium 8.9 Total Bilirubin 0.9 AST 19 ALT 20 Alkaline Phosphatase 178 H Total Protein 7.0 Albumin 3.5 Globulin 3.6 Albumin/Globulin Ratio 1.0 L Triglycerides Cholesterol LDL Cholesterol Direct HDL Cholesterol Free T4 1.47 TSH 3rd Generation 3.57 05/22/18 11:50 WBC RBC Hgb Hct MCV MCH MCHC RDW Plt Count MPV Gran % Lymph % (Auto) [place] % (Auto) Eos % (Auto) Baso % (Auto) Gran # Lymph # (Auto) [place] # (Auto) Eos # (Auto) Baso # (Auto) PT INR APTT Sodium Potassium Chloride Carbon Dioxide Anion Gap BUN Creatinine Est GFR ( Amer) Est GFR (Non-Af Amer) POC Glucose (mg/dL) 123 H Random Glucose Calcium Total Bilirubin AST ALT Alkaline Phosphatase Total Protein Albumin Globulin Albumin/Globulin Ratio Triglycerides Cholesterol LDL Cholesterol Direct HDL Cholesterol Free T4 TSH 3rd Generation Assessment & Plan - Assessment and Plan (Free Text) Assessment: Patient is a 67 year old female with past medical history T2DM, HTN, HLD, CAD, afib on coumadin, abdominal hernia, CVA who was admitted for evaluation of gangrenous toe for possible amputation, also found to have abdominal wound. Plan: - afebrile, no leukocytosis - hemodynamically stable - continue topical silvadene BID - further management per primary - further management per Dr. Petros Olson PGY-1 - Date & Time Date: 05/22/18 Time: 12:26
--- NOTE | 2018-05-22 13:11 | CP.PCM.CON ---
<Hernan Bernabe - Last Filed: 05/22/18 13:06> History of Present Illness - History of Present Illness History of Present Illness: Podiatry consult for Dr. Kim 67 F with pmhx of HTN, Chronic A-fib on anticoagulation, DM2, CAD, PVD, and recurrent UTI's seen and evaluated at bedside with Dr. Kim for left second digit gangrene. States that she had not seen Dr. Moss in her office for a while and had noticed her nail fell off. States she finally saw her in her office and was told to come into the hospital. States she noticed her toe turning black over the past few weeks. Denies N/V/F/C/SOB/CP today and has no other acute complaints. PMHx: above PSHx: R lower leg sx All: Codeine, Penicillin, Plavix, Peaches, Nectarines Past Patient History - Infectious Disease Hx of Infectious Diseases: None - Tetanus Immunizations Tetanus Immunization: Unknown - Past Social History Smoking Status: Former Smoker - CARDIAC Hx Cardiac Disorders: Yes Hx Hypertension: Yes Other/Comment: stents placed in heart, 2 - PULMONARY Hx Respiratory Disorders: No - NEUROLOGICAL HX Cerebrovascular Accident: Yes ((Residual L-sided weakness)) - HEENT Hx HEENT Problems: No - RENAL Hx Chronic Kidney Disease: No - ENDOCRINE/METABOLIC Hx Endocrine Disorders: Yes Hx Diabetes Mellitus Type 2: Yes - HEMATOLOGICAL/ONCOLOGICAL Hx Blood Disorders: Yes Hx Anemia: Yes - INTEGUMENTARY Hx Dermatological Problems: No - MUSCULOSKELETAL/RHEUMATOLOGICAL Hx Arthritis: Yes Hx Falls: No - GASTROINTESTINAL Hx Gastrointestinal Disorders: Yes Other/Comment: Increased Gas problems in abd since Stroke last year - GENITOURINARY/GYNECOLOGICAL Hx Genitourinary Disorders: No - PSYCHIATRIC Hx Psychophysiologic Disorder: No Hx Substance Use: No - SURGICAL HISTORY Hx Cardiac Catheterization: Yes Hx Coronary Stent: Yes (x2) Other/Comment: right leg r/t cellulitis 2015 - ANESTHESIA Hx Anesthesia: Yes Hx Anesthesia Reactions: No Meds Allergies/Adverse Reactions: Allergies Allergy/AdvReac Type Severity Reaction Status Date / Time codeine Allergy SHORTNESS Verified 07/18/17 11:45 OF BREATH Penicillins Allergy ANAPHYLAXIS Verified 07/18/17 11:45 clopidogrel AdvReac SHORTNESS Verified 07/18/17 11:45 OF BREATH peaches Allergy Severe REDNESS Uncoded 07/18/17 11:45 nectarines Allergy Mild SHORTNESS Uncoded 07/18/17 11:45 OF BREATH - Medications Medications: Current Medications Acetaminophen (Tylenol 325mg Tab) 650 mg PO Q6H PRN PRN Reason: Fever >100.4 F Amlodipine Besylate (Norvasc) 10 mg PO DAILY [facility] Last Admin: 05/22/18 09:08 Dose: 10 mg Amlodipine Besylate (Norvasc) 10 mg PO DAILY [facility] Atorvastatin Calcium (Lipitor) 40 mg PO QOTHERDAY [facility] Clonidine HCl (Catapres) 0.3 mg PO TID [facility] Last Admin: 05/22/18 09:08 Dose: 0.3 mg Glipizide (Glucotrol) 10 mg PO DAILY [facility] Last Admin: 05/22/18 09:08 Dose: 10 mg Aztreonam (Azactam 1 Gm) 100 mls @ 100 mls/hr IVPB Q8 [facility]; Protocol Stop: 05/28/18 22:01 Last Admin: 05/22/18 05:14 Dose: 100 mls/hr Insulin Human Lispro (Humalog High) 0 units SC ACHS [facility]; Protocol Last Admin: 05/22/18 11:52 Dose: Not Given Isosorbide Mononitrate (Imdur Er) 30 mg PO 0600 [facility] Last Admin: 05/22/18 05:13 Dose: 30 mg Meclizine HCl (Antivert) 25 mg PO TID PRN PRN Reason: dizzy Metformin HCl (Glucophage) 1,000 mg PO 0800,1700 [facility] Last Admin: 05/22/18 09:08 Dose: 1,000 mg Metoprolol Tartrate (Lopressor) 50 mg PO TID [facility] Last Admin: 05/22/18 09:08 Dose: 50 mg Oxycodone/Acetaminophen (Percocet 5/325 Mg Tab) 1 tab PO Q6H PRN PRN Reason: Pain, moderate (4-7) Stop: 05/24/18 20:42 Silver Sulfadiazine (Silvadene 1% 25 Gm) 0 gm TP BID [facility] Physical Exam - Constitutional Appears: Non-toxic, No Acute Distress - Head Exam Head Exam: ATRAUMATIC, NORMOCEPHALIC - Extremities Exam Additional comments: LLE focused VASC: DP and PT pulses nonpalpable; cap refill <3 seconds to digits 1,3,4,5; temp gradient warm to cool; no edema noted DERM: second digit gangrenous, completely black in color from the PIPJ distally; no other dermatological pathology ORTHO: no pain on palpation to the second digit or rest of foot NEURO: gross and protective sensation mildly diminished - Neurological Exam Neurological exam: Alert, Oriented x3 - Psychiatric Exam Psychiatric exam: Normal Affect, Normal Mood Results - Vital Signs Recent Vital Signs: Last Vital Signs Temp 98.5 F 05/22/18 06:00 Pulse 102 H 05/22/18 09:08 Resp 95 H 05/22/18 06:00 BP 195/64 H 05/22/18 09:08 Pulse Ox 20 L 05/22/18 06:00 - Labs Result Diagrams: 05/22/18 06:45 05/22/18 06:45 Labs: Laboratory Results - last 24 hr 05/21/18 05/21/18 05/21/18 15:00 18:30 18:30 WBC 14.7 H RBC 4.10 Hgb 10.3 L Hct 32.3 L MCV 78.8 L D MCH 25.1 MCHC 31.9 RDW 15.1 H Plt Count 277 MPV 8.7 Gran % 85.4 H Lymph % (Auto) 9.9 L [place] % (Auto) 4.0 Eos % (Auto) 0.3 L Baso % (Auto) 0.4 Gran # 12.57 H Lymph # (Auto) 1.5 [place] # (Auto) 0.6 Eos # (Auto) 0.1 Baso # (Auto) 0.06 PT INR APTT Sodium 142 Potassium 4.5 Chloride 112 H Carbon Dioxide 19 L Anion Gap 15 BUN 24 H Creatinine 1.2 Est GFR ( Amer) 54 Est GFR (Non-Af Amer) 45 POC Glucose (mg/dL) Random Glucose 175 H Hemoglobin A1c Calcium 9.5 Total Bilirubin 1.0 AST 20 ALT 18 Alkaline Phosphatase 200 H D Total Protein 7.7 Albumin 3.8 Globulin 3.9 Albumin/Globulin Ratio 1.0 L Triglycerides 117 Cholesterol 115 L LDL Cholesterol Direct 49 HDL Cholesterol 37 Free T4 TSH 3rd Generation 05/21/18 05/21/18 05/22/18 18:30 22:46 06:45 WBC 9.5 D RBC 4.02 Hgb 9.8 L Hct 31.7 L MCV 78.9 L MCH 24.4 L MCHC 30.9 L RDW 15.0 H Plt Count 241 MPV 8.6 Gran % 80.3 H Lymph % (Auto) 7.0 L [place] % (Auto) 10.8 H Eos % (Auto) 1.5 Baso % (Auto) 0.4 Gran # 7.60 H Lymph # (Auto) 0.7 L [place] # (Auto) 1.0 H Eos # (Auto) 0.1 Baso # (Auto) 0.04 PT 25.6 H INR 2.31 APTT 44.0 H Sodium Potassium Chloride Carbon Dioxide Anion Gap BUN Creatinine Est GFR ( Amer) Est GFR (Non-Af Amer) POC Glucose (mg/dL) 171 H Random Glucose Hemoglobin A1c Calcium Total Bilirubin AST ALT Alkaline Phosphatase Total Protein Albumin Globulin Albumin/Globulin Ratio Triglycerides Cholesterol LDL Cholesterol Direct HDL Cholesterol Free T4 TSH 3rd Generation 05/22/18 05/22/18 05/22/18 06:45 06:45 06:45 WBC RBC Hgb Hct MCV MCH MCHC RDW Plt Count MPV Gran % Lymph % (Auto) [place] % (Auto) Eos % (Auto) Baso % (Auto) Gran # Lymph # (Auto) [place] # (Auto) Eos # (Auto) Baso # (Auto) PT INR APTT Sodium 143 Potassium 4.2 Chloride 113 H Carbon Dioxide 21 Anion Gap 13 BUN 21 Creatinine 1.1 Est GFR ( Amer) 60 Est GFR (Non-Af Amer) 50 POC Glucose (mg/dL) Random Glucose 158 H Hemoglobin A1c 6.1 Calcium 8.9 Total Bilirubin 0.9 AST 19 ALT 20 Alkaline Phosphatase 178 H Total Protein 7.0 Albumin 3.5 Globulin 3.6 Albumin/Globulin Ratio 1.0 L Triglycerides Cholesterol LDL Cholesterol Direct HDL Cholesterol Free T4 1.47 TSH 3rd Generation 3.57 05/22/18 05/22/18 06:59 11:50 WBC RBC Hgb Hct MCV MCH MCHC RDW Plt Count MPV Gran % Lymph % (Auto) [place] % (Auto) Eos % (Auto) Baso % (Auto) Gran # Lymph # (Auto) [place] # (Auto) Eos # (Auto) Baso # (Auto) PT INR APTT Sodium Potassium Chloride Carbon Dioxide Anion Gap BUN Creatinine Est GFR ( Amer) Est GFR (Non-Af Amer) POC Glucose (mg/dL) 147 H 123 H Random Glucose Hemoglobin A1c Calcium Total Bilirubin AST ALT Alkaline Phosphatase Total Protein Albumin Globulin Albumin/Globulin Ratio Triglycerides Cholesterol LDL Cholesterol Direct HDL Cholesterol Free T4 TSH 3rd Generation Assessment & Plan - Assessment and Plan (Free Text) Assessment: 67F with extensive pmhx seen and evaluated for left second digit gangrene Plan: Patient seen and evaluated with Dr. Kim Afebrile, WBC 9.5 Second digit cleansed and coated with betadine and dressed with DSD Left foot x-ray - no evidence of osteomyelitis MRI of left foot ordered - f/u results Arterial duplex studies ordered Vascular consult for Dr. Marrufo - appreciate recs Podiatry will continue to follow while in house Thank you for the consult - Date & Time Date: 05/22/18 Time: 13:20 <Gil Kim - Last Filed: 05/22/18 13:52> Meds - Medications Medications: Current Medications Acetaminophen (Tylenol 325mg Tab) 650 mg PO Q6H PRN PRN Reason: Fever >100.4 F Amlodipine Besylate (Norvasc) 10 mg PO DAILY [facility] Last Admin: 05/22/18 09:08 Dose: 10 mg Amlodipine Besylate (Norvasc) 10 mg PO DAILY [facility] Atorvastatin Calcium (Lipitor) 40 mg PO QOTHERDAY [facility] Clonidine HCl (Catapres) 0.3 mg PO TID [facility] Last Admin: 05/22/18 09:08 Dose: 0.3 mg Glipizide (Glucotrol) 10 mg PO DAILY [facility] Last Admin: 05/22/18 09:08 Dose: 10 mg Aztreonam (Azactam 1 Gm) 100 mls @ 100 mls/hr IVPB Q8 [facility]; Protocol Stop: 05/28/18 22:01 Last Admin: 05/22/18 05:14 Dose: 100 mls/hr Insulin Human Lispro (Humalog High) 0 units SC ACHS [facility]; Protocol Last Admin: 05/22/18 11:52 Dose: Not Given Isosorbide Mononitrate (Imdur Er) 30 mg PO 0600 [facility] Last Admin: 05/22/18 05:13 Dose: 30 mg Meclizine HCl (Antivert) 25 mg PO TID PRN PRN Reason: dizzy Metformin HCl (Glucophage) 1,000 mg PO 0800,1700 [facility] Last Admin: 05/22/18 09:08 Dose: 1,000 mg Metoprolol Tartrate (Lopressor) 50 mg PO TID [facility] Last Admin: 05/22/18 09:08 Dose: 50 mg Oxycodone/Acetaminophen (Percocet 5/325 Mg Tab) 1 tab PO Q6H PRN PRN Reason: Pain, moderate (4-7) Stop: 05/24/18 20:42 Silver Sulfadiazine (Silvadene 1% 25 Gm) 0 gm TP BID [facility] Results - Vital Signs Recent Vital Signs: Last Vital Signs Temp 98.5 F 05/22/18 06:00 Pulse 102 H 05/22/18 09:08 Resp 95 H 05/22/18 06:00 BP 195/64 H 05/22/18 09:08 Pulse Ox 20 L 05/22/18 06:00 - Labs Result Diagrams: 05/22/18 06:45 05/22/18 06:45 Labs: Laboratory Results - last 24 hr 05/21/18 05/21/18 05/21/18 15:00 18:30 18:30 WBC 14.7 H RBC 4.10 Hgb 10.3 L Hct 32.3 L MCV 78.8 L D MCH 25.1 MCHC 31.9 RDW 15.1 H Plt Count 277 MPV 8.7 Gran % 85.4 H Lymph % (Auto) 9.9 L [place] % (Auto) 4.0 Eos % (Auto) 0.3 L Baso % (Auto) 0.4 Gran # 12.57 H Lymph # (Auto) 1.5 [place] # (Auto) 0.6 Eos # (Auto) 0.1 Baso # (Auto) 0.06 PT INR APTT Sodium 142 Potassium 4.5 Chloride 112 H Carbon Dioxide 19 L Anion Gap 15 BUN 24 H Creatinine 1.2 Est GFR ( Amer) 54 Est GFR (Non-Af Amer) 45 POC Glucose (mg/dL) Random Glucose 175 H Hemoglobin A1c Calcium 9.5 Total Bilirubin 1.0 AST 20 ALT 18 Alkaline Phosphatase 200 H D Total Protein 7.7 Albumin 3.8 Globulin 3.9 Albumin/Globulin Ratio 1.0 L Triglycerides 117 Cholesterol 115 L LDL Cholesterol Direct 49 HDL Cholesterol 37 Free T4 TSH 3rd Generation 05/21/18 05/21/18 05/22/18 18:30 22:46 06:45 WBC 9.5 D RBC 4.02 Hgb 9.8 L Hct 31.7 L MCV 78.9 L MCH 24.4 L MCHC 30.9 L RDW 15.0 H Plt Count 241 MPV 8.6 Gran % 80.3 H Lymph % (Auto) 7.0 L [place] % (Auto) 10.8 H Eos % (Auto) 1.5 Baso % (Auto) 0.4 Gran # 7.60 H Lymph # (Auto) 0.7 L [place] # (Auto) 1.0 H Eos # (Auto) 0.1 Baso # (Auto) 0.04 PT 25.6 H INR 2.31 APTT 44.0 H Sodium Potassium Chloride Carbon Dioxide Anion Gap BUN Creatinine Est GFR ( Amer) Est GFR (Non-Af Amer) POC Glucose (mg/dL) 171 H Random Glucose Hemoglobin A1c Calcium Total Bilirubin AST ALT Alkaline Phosphatase Total Protein Albumin Globulin Albumin/Globulin Ratio Triglycerides Cholesterol LDL Cholesterol Direct HDL Cholesterol Free T4 TSH 3rd Generation 05/22/18 05/22/18 05/22/18 06:45 06:45 06:45 WBC RBC Hgb Hct MCV MCH MCHC RDW Plt Count MPV Gran % Lymph % (Auto) [place] % (Auto) Eos % (Auto) Baso % (Auto) Gran # Lymph # (Auto) [place] # (Auto) Eos # (Auto) Baso # (Auto) PT INR APTT Sodium 143 Potassium 4.2 Chloride 113 H Carbon Dioxide 21 Anion Gap 13 BUN 21 Creatinine 1.1 Est GFR ( Amer) 60 Est GFR (Non-Af Amer) 50 POC Glucose (mg/dL) Random Glucose 158 H Hemoglobin A1c 6.1 Calcium 8.9 Total Bilirubin 0.9 AST 19 ALT 20 Alkaline Phosphatase 178 H Total Protein 7.0 Albumin 3.5 Globulin 3.6 Albumin/Globulin Ratio 1.0 L Triglycerides Cholesterol LDL Cholesterol Direct HDL Cholesterol Free T4 1.47 TSH 3rd Generation 3.57 05/22/18 05/22/18 06:59 11:50 WBC RBC Hgb Hct MCV MCH MCHC RDW Plt Count MPV Gran % Lymph % (Auto) [place] % (Auto) Eos % (Auto) Baso % (Auto) Gran # Lymph # (Auto) [place] # (Auto) Eos # (Auto) Baso # (Auto) PT INR APTT Sodium Potassium Chloride Carbon Dioxide Anion Gap BUN Creatinine Est GFR ( Amer) Est GFR (Non-Af Amer) POC Glucose (mg/dL) 147 H 123 H Random Glucose Hemoglobin A1c Calcium Total Bilirubin AST ALT Alkaline Phosphatase Total Protein Albumin Globulin Albumin/Globulin Ratio Triglycerides Cholesterol LDL Cholesterol Direct HDL Cholesterol Free T4 TSH 3rd Generation Attending/Attestation - Attestation I have personally seen and examined this patient.: Yes I have fully participated in the care of the patient.: Yes I have reviewed all pertinent clinical information: Yes
--- NOTE | 2018-05-22 18:20 | PN ---
DATE: 05/22/2018 SUBJECTIVE: The patient is 67- year-old seen and examined sitting in the chair, looks pale, offers no complaint except left foot discomfort. She also has abdominal wall wound that is being followed by Dr. Morrell as outpatient. PHYSICAL EXAMINATION: GENERAL: Otherwise, she is awake, alert, and oriented, able to communicate. VITAL SIGNS: She is afebrile, pulse 102, respirations 20, blood pressure 195/64. LUNGS: Bilateral good air flow. No rhonchi or crackle. HEART: S1, S2 audible. ABDOMEN: Soft, nontender. No rebound, no guarding. NEUROLOGIC: The patient is awake, alert, oriented able to communicate. Bilateral chronic venostasis with brownish pigmentation. Abdominal wall is very pendulous and in her gluteal, in her groin fold, she has a wound that is covered with dressing and dressing is stuck to the wound. Left within the dressing done by podiatry team. ASSESSMENT: 1. Left second toe gangrene. 2. Insulin dependent diabetes, poorly controlled. 3. Poorly controlled hypertension. 4. Abdominal wall wound and cellulitis. PLAN: We will continue IV antibiotics. Continue wound care. Cardiology evaluation has been requested. Probably, we are going to need echocardiogram. Process her LV function. Last echocardiogram was almost a year ago. 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 In the meantime, I will monitor her blood sugar and surgical consult is requested to take care of the patient's abdominal wall wound. Jason Laws MD
[2018-05-22] MEDS: Silver Sulfadiazine 1% Cream (25 gm) TP SCH (18:37)
--- NOTE | 2018-05-22 22:35 | CON ---
DATE: 05/22/2018 REQUESTING PHYSICIAN: Dr. Laws REASON FOR CONSULTATION: Preoperative cardiac evaluation. HISTORY: This is a 67-year-old woman known to me with a history of diabetes and coronary artery disease, status post prior multivessel PCI, who was admitted with gangrenous left second toe. Plan is being made for toe amputation. Cardiac evaluation was requested. She has a history of chronic atrial fibrillation and remote coronary artery disease. She has undergone remote multivessel PCI and has been fairly stable from a cardiac standpoint for some time. She denies any recent chest pain or dyspnea. PAST HISTORY: Notable for hypertension, diabetes, peripheral vascular disease and left knee arthroscopy. CURRENT MEDICATIONS: Include Antivert, Azactam, clonidine, Glucophage, Glucotrol, Imdur, Lipitor 40 mg daily, metoprolol 50 mg t.i.d., Norvasc 10 mg daily. ALLERGIES: SHE HAS HAD A REACTION TO CODEINE, PENICILLIN, PLAVIX IN THE PAST. SOCIAL HISTORY: She is a former smoker, finally quit 4 years ago. She denies alcohol use. FAMILY HISTORY: Both parents are from age-related illness. REVIEW OF SYSTEMS: Ten-point review of systems is otherwise unremarkable. She was morbidly obese many years ago but did lose a significant amount of weight, however, does remain overweight. PHYSICAL EXAMINATION: GENERAL: She is an overweight middle-aged woman. VITAL SIGNS: Her blood pressure is 176/80 with a pulse of 80, respirations are 14. She is afebrile. HEENT: Normocephalic, atraumatic. NECK: Supple. No JVD noted. CHEST: Few scattered rhonchi are heard. HEART: PMI displaced laterally with a soft systolic murmur in the lower left sternal border. ABDOMEN: Soft, nontender, with normoactive bowel sounds. EXTREMITIES: Her left foot is dressed. The second toe is gangrenous. Distal pulses are not palpable. SKIN: Warm and dry. PSYCHIATRIC: Normal mood and affect. NEUROLOGIC: Alert and oriented x3. No gross motor deficit noted. DIAGNOSTIC DATA: Potassium is 4.2, BUN and creatinine are 21 and 1.1 with a glucose of 158. White count is 9.5, hemoglobin and hematocrit are 9.8 and 31.7 with a platelet count of 241,000. Hemoglobin A1c is 6.1%. Cholesterol 115 with an LDL of 49, HDL 37 and triglycerides of 117. Chest x-ray reveals mildly increased cardiac silhouette with mild bilateral increased vascular markings. Electrocardiogram reveals atrial fibrillation with nonspecific ST-T abnormalities. IMPRESSION: 1. Severe peripheral vascular disease with toe gangrene, needs amputation at this time. 2. Coronary artery disease, clinically stable, status post remote multivessel percutaneous coronary intervention. 3. Multiple risk factors as noted. RECOMMENDATIONS: At this time, she appears stable to proceed with toe amputation as planned. If more extensive, peripheral revascularization would be necessary. Consideration may need to be given to nuclear stress test at that time. Assuming her surgery is limited, she appears to be at average risk at this time. The need for close podiatric followup was discussed with her. The need for continued risk factor control is advised as well. We will continue to follow and make further recommendations as appropriate. Mauro Dowell MD
[2018-05-23] MEDS: Aztreonam 1 Gm in NS 100mL 100 ML IVPB SCH ×3 (05:34→22:00)
[2018-05-23] MEDS: Insulin Lispro (HUMAlog) HIGH Coverage SC SCH ×4 (08:55→22:00)
[2018-05-23] MEDS: Silver Sulfadiazine 1% Cream (25 gm) TP SCH ×2 (09:54→19:05)
[2018-05-23] MEDS: Insulin Human NPH/Reg 70/30 Vial(3 ml) SC SCH ×3 (10:00→17:43)
--- NOTE | 2018-05-23 10:30 | CP.PCM.PN ---
<Argelia Moody - Last Filed: 05/23/18 10:24> Subjective - Date & Time of Evaluation Date of Evaluation: 05/23/18 Time of Evaluation: 10:24 - Subjective Subjective: Podiatry Progress Note - Dr. Kim 67F seen and evaluated this AM for left second digit gangrene. Patient resting comfortably, NAD. No acute events overnight. Patient offers no new complaints to left second digit; pain well-controlled. Dressing to LLE clean/dry/intact. Denies n/v/f/d/c/sob/salazar/cp/dizziness. Objective - Vital Signs/Intake and Output Vital Signs (last 24 hours): Temp Pulse Resp BP Pulse Ox 98 F 97 H 20 145/66 95 05/23/18 06:00 05/23/18 09:55 05/23/18 06:00 05/23/18 09:55 05/23/18 06:00 Intake and Output: 05/23/18 05/23/18 06:59 18:59 Intake Total 420 Output Total 1 Balance 419 - Medications Medications: Current Medications Acetaminophen (Tylenol 325mg Tab) 650 mg PO Q6H PRN PRN Reason: Fever >100.4 F Amlodipine Besylate (Norvasc) 10 mg PO DAILY [facility] Last Admin: 05/23/18 09:55 Dose: 10 mg Amlodipine Besylate (Norvasc) 10 mg PO DAILY [facility] Last Admin: 05/22/18 13:50 Dose: 10 mg Atorvastatin Calcium (Lipitor) 40 mg PO QOTHERDAY [facility] Last Admin: 05/23/18 09:55 Dose: 40 mg Clonidine HCl (Catapres) 0.3 mg PO TID [facility] Last Admin: 05/23/18 09:55 Dose: 0.3 mg Glipizide (Glucotrol) 10 mg PO DAILY [facility] Last Admin: 05/23/18 09:55 Dose: 10 mg Aztreonam (Azactam 1 Gm) 100 mls @ 100 mls/hr IVPB Q8 [facility]; Protocol Stop: 05/28/18 22:01 Last Admin: 05/23/18 05:34 Dose: 100 mls/hr Insulin Human Lispro (Humalog High) 0 units SC ACHS [facility]; Protocol Last Admin: 05/23/18 08:55 Dose: Not Given Isosorbide Mononitrate (Imdur Er) 30 mg PO 0600 [facility] Last Admin: 05/23/18 05:34 Dose: 30 mg Meclizine HCl (Antivert) 25 mg PO TID PRN PRN Reason: dizzy Metformin HCl (Glucophage) 1,000 mg PO 0800,1700 [facility] Last Admin: 05/23/18 09:55 Dose: 1,000 mg Metoprolol Tartrate (Lopressor) 50 mg PO TID [facility] Last Admin: 05/23/18 09:54 Dose: 50 mg Oxycodone/Acetaminophen (Percocet 5/325 Mg Tab) 1 tab PO Q6H PRN PRN Reason: Pain, moderate (4-7) Stop: 05/24/18 20:42 Last Admin: 05/23/18 00:32 Dose: 1 tab Silver Sulfadiazine (Silvadene 1% 25 Gm) 0 gm TP BID [facility] Last Admin: 05/23/18 09:54 Dose: 25 gm - Labs Labs: 05/22/18 06:45 05/22/18 06:45 PT 25.6 SECONDS (9.4-12.5) H 05/21/18 18:30 INR 2.31 05/21/18 18:30 APTT 44.0 Seconds (26.9-38.3) H 05/21/18 18:30 - Constitutional Appears: Non-toxic, No Acute Distress - Extremities Exam Additional comments: LLE focused VASC: DP and PT pulses nonpalpable; cap refill <3 seconds to digits 1,3,4,5 unable to assess 2nd digit; temp gradient warm to cool, 2nd digit cold to touch; no edema noted DERM: second digit gangrenous, completely black in color from the PIPJ distally; no other dermatological pathology ORTHO: Tenderness to palpation 2nd digit NEURO: gross and protective sensation mildly diminished - Neurological Exam Neurological Exam: Alert, Awake, Oriented x3 - Psychiatric Exam Psychiatric exam: Normal Affect, Normal Mood Assessment and Plan - Assessment and Plan (Free Text) Assessment: 67F with left second digit gangrene Plan: Patient seen and evaluated alongside attending, Dr. Julio SHARIF Left foot XR: negative for OM LLE MRI ordered, pending Arterial duplex report pending Vascular consult, Dr. Marrufo - pending Continue local wound care: betadine, DSD Podiatry will continue to follow <Gil Kim - Last Filed: 05/26/18 16:31> Objective - Vital Signs/Intake and Output Vital Signs (last 24 hours): Temp Pulse Resp BP Pulse Ox 97.8 F 85 18 157/88 H 95 05/26/18 06:00 05/26/18 13:36 05/26/18 06:00 05/26/18 13:36 05/26/18 06:00 Intake and Output: 05/26/18 05/26/18 06:59 18:59 Intake Total 360 720 Balance 360 720 - Medications Medications: Current Medications Acetaminophen (Tylenol 325mg Tab) 650 mg PO Q6H PRN PRN Reason: Fever >100.4 F Alprazolam (Xanax) 0.25 mg PO BID PRN; Protocol PRN Reason: Anxiety Stop: 06/02/18 11:01 Amlodipine Besylate (Norvasc) 10 mg PO DAILY [facility] Last Admin: 05/26/18 09:46 Dose: 10 mg Atorvastatin Calcium (Lipitor) 40 mg PO QOTHERDAY [facility] Last Admin: 05/25/18 10:18 Dose: 40 mg Clonidine HCl (Catapres) 0.3 mg PO TID [facility] Last Admin: 05/26/18 13:36 Dose: 0.3 mg Dextrose (Dextrose 50% Inj) 50 ml IVP ONCE PRN PRN Reason: Hypoglycemia Glipizide (Glucotrol) 10 mg PO DAILY [facility] Last Admin: 05/26/18 09:49 Dose: Not Given Aztreonam (Azactam 1 Gm) 100 mls @ 100 mls/hr IVPB Q8 [facility]; Protocol Stop: 05/28/18 22:01 Last Admin: 05/26/18 13:37 Dose: 100 mls/hr Sodium Chloride (Sodium Chloride 0.45%) 1,000 mls @ 80 mls/hr IV .[id number] PEYMAN Stop: 05/28/18 08:00 Last Admin: 05/26/18 12:24 Dose: 80 mls/hr Ibuprofen (Motrin Tab) 600 mg PO Q6H PRN PRN Reason: Pain, Mild (1-3) Last Admin: 05/25/18 21:29 Dose: 600 mg Insulin Human Lispro (Humalog High) 0 units SC ACHS [facility]; Protocol Last Admin: 05/26/18 12:25 Dose: 2 units Insulin Lispro Protam/Lispro Human (Humalog Mix 75/25) 10 units SC ACBD [facility] Last Admin: 05/26/18 07:56 Dose: Not Given Isosorbide Mononitrate (Imdur Er) 30 mg PO 0600 [facility] Last Admin: 05/26/18 05:12 Dose: 30 mg Levalbuterol HCl (Xopenex) 1.25 mg IH [id number] [facility] Last Admin: 05/26/18 13:04 Dose: 1.25 mg Meclizine HCl (Antivert) 25 mg PO TID PRN PRN Reason: dizzy Metoprolol Tartrate (Lopressor) 50 mg PO TID [facility] Last Admin: 05/26/18 13:36 Dose: 50 mg Silver Sulfadiazine (Silvadene 1% 25 Gm) 0 gm TP BID [facility] Last Admin: 05/26/18 13:37 Dose: 25 gm - Labs Labs: 05/22/18 06:45 05/22/18 06:45 PT 25.6 SECONDS (9.4-12.5) H 05/21/18 18:30 INR 2.31 05/21/18 18:30 APTT 44.0 Seconds (26.9-38.3) H 05/21/18 18:30 Attending/Attestation - Attestation I have personally seen and examined this patient.: Yes I have fully participated in the care of the patient.: Yes I have reviewed all pertinent clinical information, including history, physical exam and plan: Yes
--- NOTE | 2018-05-23 12:46 | PN ---
DATE: 05/23/2018 SUBJECTIVE: The patient seen in room 566, bed 2 earlier today. The patient is in bed, no acute distress, nontoxic. PHYSICAL EXAMINATION: VITAL SIGNS: Temperature is 98, blood pressure is 140/60, respiratory rate of 20. HEENT: Unremarkable. NECK: Supple. LUNGS: Have decreased breath sounds. HEART: Normal S1, S2. ABDOMEN: Soft. LABORATORY DATA: White count of 9.5, hemoglobin of 9, platelets of 241. Chemistries reveals creatinine is 1.1. ASSESSMENT AND PLAN: This is a 67-year-old female with history of hypertension, chronic atrial fibrillation, diabetes mellitus, coronary artery disease, recurrent urinary tract infections, peripheral vascular disease with a left second toe gangrene in a patient who is diabetic, hypertensive, coronary artery disease and peripheral vascular disease. Currently on aztreonam. Negative blood cultures. The patient did have Klebsiella in the urine last year and dose of vancomycin was also given. Dr. Argelia Moody's note is reviewed. The patient with a left second digit gangrene. Yemi Aguilar MD
[2018-05-23] MEDS: Enoxaparin 100 mg Syringe SC SCH ×2 (13:04→22:01)
[2018-05-23] MEDS ORDERED: Dextrose 50% SYRINGE Inj (50 ml) IVP PRN (16:44)
--- NOTE | 2018-05-23 17:01 | PN ---
DATE: 05/23/2018 SUBJECTIVE: The patient is a 67-year-old seen and examined, lying in bed, seems to be comfortable. Denies any chest pain. No nausea or vomiting. No diarrhea. Eating and tolerating. PHYSICAL EXAMINATION: VITAL SIGNS: She is afebrile, pulse 97, respirations 20, and blood pressure 145/66. LUNGS: Bilateral fair air flow. No rhonchi or crackle. HEART: S1, S2 audible. ABDOMEN: Soft. She has ventral hernia. She has wound. Has a very minimal smell and is being dressed by surgical team. EXTREMITIES: Bilateral legs; she has chronic pigmentation and her left foot is in the dressing. LABORATORY DATA: Her blood sugar is 112. Blood cultures are negative. ASSESSMENT: 1. Left second toe gangrene. 2. Insulin dependent diabetes. 3. Hypertension. 4. Peripheral vascular disease. 5. Atrial fibrillation. PLAN: Currently, the patient is on IV antibiotics. I will add Lovenox. We will hold off Coumadin. Cardiology input noted and appreciated. The patient seems to be stable from Cardiology point of view. Possible plan for toe amputation next week sometime. Jason Laws MD
--- NOTE | 2018-05-23 21:48 | US ---
PROCEDURE: Lower extremity GORAN exam HISTORY: Peripheral vascular disease with pain and left 2nd toe gangrene. Previous smoker. Diabetes PHYSICIAN(S): Eric Marrufo MD. FINDINGS: The resting ABIs are severely abnormal: Right, 0.34 and left, 0.41. The exam is limited by calcified vessels at multiple levels The brachial systolic pressures are symmetric. The high thigh pressures are noncompressible. The high thigh PVR waveforms are normal and symmetric The right calf PVR waveform is normal. The right calf PVR waveform augments normally. The left calf PVR waveform is severely blunted. Findings are consistent with left SFA occlusive disease The right ankle and metatarsal waveforms are moderately blunted. The left ankle and metatarsal waveforms are severely blunted. The findings are consistent with bilateral tibial disease IMPRESSION: 1. Severely abnormal ABIs at rest. The exam is limited by calcified vessels at multiple locations 2. Left SFA occlusive disease. 3. Bilateral tibial occlusive disease. 4. If clinically indicated, further evaluation with MRA with gadolinium runoff, CTA runoff, or conventional arteriography can be obtained
[2018-05-24] MEDS: Aztreonam 1 Gm in NS 100mL 100 ML IVPB SCH ×3 (06:00→21:56)
[2018-05-24] MEDS: Insulin Lispro (HUMAlog) HIGH Coverage SC SCH ×4 (08:11→22:44)
--- NOTE | 2018-05-24 09:18 | CP.PCM.PN ---
Subjective - Date & Time of Evaluation Date of Evaluation: 05/24/18 Time of Evaluation: 08:59 - Subjective Subjective: Surgery Pt seen and examined. No acute events. Dressing changed this AM. Denies fever, nausea. Objective - Vital Signs/Intake and Output Vital Signs (last 24 hours): Temp Pulse Resp BP Pulse Ox 99 F 80 20 185/100 H 96 05/24/18 07:00 05/24/18 08:17 05/24/18 07:00 05/24/18 08:17 05/24/18 07:00 - Medications Medications: Current Medications Acetaminophen (Tylenol 325mg Tab) 650 mg PO Q6H PRN PRN Reason: Fever >100.4 F Amlodipine Besylate (Norvasc) 10 mg PO DAILY [facility] Last Admin: 05/24/18 08:16 Dose: 10 mg Amlodipine Besylate (Norvasc) 10 mg PO DAILY [facility] Last Admin: 05/23/18 12:54 Dose: Not Given Atorvastatin Calcium (Lipitor) 40 mg PO QOTHERDAY [facility] Last Admin: 05/23/18 09:55 Dose: 40 mg Clonidine HCl (Catapres) 0.3 mg PO TID [facility] Last Admin: 05/24/18 08:17 Dose: 0.3 mg Dextrose (Dextrose 50% Inj) 50 ml IVP ONCE PRN PRN Reason: Hypoglycemia Enoxaparin Sodium (Lovenox) 90 mg SC Q12 [facility]; Protocol Last Admin: 05/23/18 22:01 Dose: 90 mg Glipizide (Glucotrol) 10 mg PO DAILY [facility] Last Admin: 05/23/18 09:55 Dose: 10 mg Aztreonam (Azactam 1 Gm) 100 mls @ 100 mls/hr IVPB Q8 [facility]; Protocol Stop: 05/28/18 22:01 Last Admin: 05/24/18 06:00 Dose: 100 mls/hr Insulin Human Lispro (Humalog High) 0 units SC ACHS [facility]; Protocol Last Admin: 05/24/18 08:11 Dose: Not Given Isosorbide Mononitrate (Imdur Er) 30 mg PO 0600 [facility] Last Admin: 05/24/18 06:01 Dose: 30 mg Meclizine HCl (Antivert) 25 mg PO TID PRN PRN Reason: dizzy Metformin HCl (Glucophage) 1,000 mg PO 0800,1700 [facility] Last Admin: 05/24/18 08:16 Dose: 1,000 mg Metoprolol Tartrate (Lopressor) 50 mg PO TID [facility] Last Admin: 05/24/18 08:17 Dose: 50 mg Oxycodone/Acetaminophen (Percocet 5/325 Mg Tab) 1 tab PO Q6H PRN PRN Reason: Pain, moderate (4-7) Stop: 05/24/18 20:42 Last Admin: 05/23/18 00:32 Dose: 1 tab Silver Sulfadiazine (Silvadene 1% 25 Gm) 0 gm TP BID [facility] Last Admin: 05/23/18 19:05 Dose: 1 gm - Labs Labs: 05/22/18 06:45 05/22/18 06:45 PT 25.6 SECONDS (9.4-12.5) H 05/21/18 18:30 INR 2.31 05/21/18 18:30 APTT 44.0 Seconds (26.9-38.3) H 05/21/18 18:30 - Constitutional Appears: No Acute Distress - Head Exam Head Exam: ATRAUMATIC, NORMAL INSPECTION, NORMOCEPHALIC - Eye Exam Eye Exam: EOMI, Normal appearance, PERRL Pupil Exam: NORMAL ACCOMODATION, PERRL - ENT Exam ENT Exam: Mucous Membranes Moist - Neck Exam Neck Exam: Full ROM, Normal Inspection. absent: Lymphadenopathy - Respiratory Exam Respiratory Exam: NORMAL BREATHING PATTERN - Cardiovascular Exam Cardiovascular Exam: REGULAR RHYTHM - GI/Abdominal Exam GI & Abdominal Exam: Soft. absent: Tenderness Additional comments: large pannus, 10x3x0.5cm wound w granulation tissues. - Extremities Exam Extremities Exam: Full ROM Additional comments: R lateral aspect of LE has discoloration - Back Exam Back Exam: NORMAL INSPECTION - Neurological Exam Neurological Exam: Alert, Awake, CN II-XII Intact, Oriented x3 - Psychiatric Exam Psychiatric exam: Normal Affect, Normal Mood - Skin Skin Exam: Warm Assessment and Plan - Assessment and Plan (Free Text) Assessment: Patient is a 67 year old female with past medical history T2DM, HTN, HLD, CAD, afib on coumadin, abdominal hernia, CVA who was admitted for evaluation of gangrenous toe for possible amputation, also found to have chronic abdominal wound that is being managed by Dr. Morrell out patient. Plan: - afebrile, no leukocytosis - hemodynamically stable - continue topical silvadene BID - further management per primary Will RAFAEL Morrell
[2018-05-24] MEDS: Insulin Human NPH/Reg 70/30 Vial(3 ml) SC SCH ×3 (09:40→17:35)
[2018-05-24] MEDS: Enoxaparin 100 mg Syringe SC SCH ×3 (09:45→22:11)
[2018-05-24] MEDS: Silver Sulfadiazine 1% Cream (25 gm) TP SCH ×2 (09:46→17:39)
--- NOTE | 2018-05-24 12:20 | CP.PCM.PN ---
<Argelia Moody - Last Filed: 05/25/18 00:04> Subjective - Date & Time of Evaluation Date of Evaluation: 05/24/18 Time of Evaluation: 12:19 - Subjective Subjective: Podiatry Progress Note - Dr. Kim/Isa 67F seen and evaluated this AM for left second digit gangrene. Patient resting comfortably, NAD. No acute events overnight. Patient reports pain in left foot remains unchanged, admits to finding pain relief when her legs are in the dependent position. Dressing to LLE clean/dry/intact. Denies n/v/f/d/c/sob/salazar/cp/dizziness. Objective - Vital Signs/Intake and Output Vital Signs (last 24 hours): Temp Pulse Resp BP Pulse Ox 99 F 80 20 185/100 H 96 05/24/18 07:00 05/24/18 08:17 05/24/18 07:00 05/24/18 08:17 05/24/18 07:00 - Medications Medications: Current Medications Acetaminophen (Tylenol 325mg Tab) 650 mg PO Q6H PRN PRN Reason: Fever >100.4 F Amlodipine Besylate (Norvasc) 10 mg PO DAILY [facility] Last Admin: 05/24/18 08:16 Dose: 10 mg Amlodipine Besylate (Norvasc) 10 mg PO DAILY [facility] Last Admin: 05/24/18 09:42 Dose: Not Given Atorvastatin Calcium (Lipitor) 40 mg PO QOTHERDAY [facility] Last Admin: 05/23/18 09:55 Dose: 40 mg Clonidine HCl (Catapres) 0.3 mg PO TID [facility] Last Admin: 05/24/18 08:17 Dose: 0.3 mg Dextrose (Dextrose 50% Inj) 50 ml IVP ONCE PRN PRN Reason: Hypoglycemia Enoxaparin Sodium (Lovenox) 90 mg SC Q12 [facility]; Protocol Last Admin: 05/24/18 09:45 Dose: 90 mg Glipizide (Glucotrol) 10 mg PO DAILY [facility] Last Admin: 05/24/18 09:38 Dose: Not Given Aztreonam (Azactam 1 Gm) 100 mls @ 100 mls/hr IVPB Q8 [facility]; Protocol Stop: 05/28/18 22:01 Last Admin: 05/24/18 06:00 Dose: 100 mls/hr Ibuprofen (Motrin Tab) 600 mg PO Q6H PRN PRN Reason: Pain, Mild (1-3) Insulin Human Lispro (Humalog High) 0 units SC ACHS [facility]; Protocol Last Admin: 05/24/18 08:11 Dose: Not Given Isosorbide Mononitrate (Imdur Er) 30 mg PO 0600 [facility] Last Admin: 05/24/18 06:01 Dose: 30 mg Meclizine HCl (Antivert) 25 mg PO TID PRN PRN Reason: dizzy Metformin HCl (Glucophage) 1,000 mg PO 0800,1700 [facility] Last Admin: 05/24/18 08:16 Dose: 1,000 mg Metoprolol Tartrate (Lopressor) 50 mg PO TID [facility] Last Admin: 05/24/18 08:17 Dose: 50 mg Oxycodone/Acetaminophen (Percocet 5/325 Mg Tab) 1 tab PO Q6H PRN PRN Reason: Pain, moderate (4-7) Stop: 05/24/18 20:42 Last Admin: 05/23/18 00:32 Dose: 1 tab Silver Sulfadiazine (Silvadene 1% 25 Gm) 0 gm TP BID [facility] Last Admin: 05/24/18 09:46 Dose: 25 gm - Labs Labs: 05/22/18 06:45 05/22/18 06:45 PT 25.6 SECONDS (9.4-12.5) H 05/21/18 18:30 INR 2.31 05/21/18 18:30 APTT 44.0 Seconds (26.9-38.3) H 05/21/18 18:30 - Constitutional Appears: Non-toxic, No Acute Distress - Extremities Exam Additional comments: LLE focused VASC: DP and PT pulses nonpalpable; cap refill <3 seconds to digits 1,3,4,5 unable to assess 2nd digit; temp gradient warm to cool, 2nd digit cold to touch; no edema noted DERM: second digit gangrenous, completely black in color from the PIPJ distally; no other dermatological pathology ORTHO: Tenderness to palpation 2nd digit NEURO: gross and protective sensation mildly diminished - Neurological Exam Neurological Exam: Alert, Awake, Oriented x3 - Psychiatric Exam Psychiatric exam: Normal Affect, Normal Mood Assessment and Plan - Assessment and Plan (Free Text) Assessment: 67F with left second digit gangrene Plan: Patient seen and evaluated Discussed with attending, Dr. Moss VSS Left foot XR: negative for OM LLE MRI: acute OM distal phalanx 2nd digit Arterial duplex: severely abnormal ABIs at rest limited by calcified vessels; L SFA occlusive disease; bilateral tibial occlusive disease Vascular consult, Dr. Marrufo - pending Continue local wound care: betadine, DSD Podiatry will continue to follow <Melyssa Moss - Last Filed: 05/25/18 07:58> Objective - Vital Signs/Intake and Output Vital Signs (last 24 hours): Temp Pulse Resp BP Pulse Ox 97.7 F 77 18 177/91 H 95 05/24/18 22:03 05/24/18 22:03 05/24/18 22:03 05/24/18 22:03 05/24/18 22:03 - Medications Medications: Current Medications Acetaminophen (Tylenol 325mg Tab) 650 mg PO Q6H PRN PRN Reason: Fever >100.4 F Amlodipine Besylate (Norvasc) 10 mg PO DAILY [facility] Last Admin: 05/24/18 08:16 Dose: 10 mg Amlodipine Besylate (Norvasc) 10 mg PO DAILY [facility] Last Admin: 05/24/18 09:42 Dose: Not Given Atorvastatin Calcium (Lipitor) 40 mg PO QOTHERDAY [facility] Last Admin: 05/23/18 09:55 Dose: 40 mg Clonidine HCl (Catapres) 0.3 mg PO TID [facility] Last Admin: 05/24/18 17:34 Dose: 0.3 mg Dextrose (Dextrose 50% Inj) 50 ml IVP ONCE PRN PRN Reason: Hypoglycemia Glipizide (Glucotrol) 10 mg PO DAILY [facility] Last Admin: 05/24/18 09:38 Dose: Not Given Aztreonam (Azactam 1 Gm) 100 mls @ 100 mls/hr IVPB Q8 [facility]; Protocol Stop: 05/28/18 22:01 Last Admin: 05/25/18 05:31 Dose: 100 mls/hr Ibuprofen (Motrin Tab) 600 mg PO Q6H PRN PRN Reason: Pain, Mild (1-3) Last Admin: 05/25/18 05:32 Dose: 600 mg Insulin Human Lispro (Humalog High) 0 units SC [facility]; Protocol Last Admin: 05/24/18 22:44 Dose: Not Given Isosorbide Mononitrate (Imdur Er) 30 mg PO 0600 [facility] Last Admin: 05/25/18 05:31 Dose: 30 mg Meclizine HCl (Antivert) 25 mg PO TID PRN PRN Reason: dizzy Metformin HCl (Glucophage) 1,000 mg PO 0800,1700 [facility] Last Admin: 05/24/18 17:34 Dose: 1,000 mg Metoprolol Tartrate (Lopressor) 50 mg PO TID [facility] Last Admin: 05/24/18 17:34 Dose: 50 mg Silver Sulfadiazine (Silvadene 1% 25 Gm) 0 gm TP BID [facility] Last Admin: 05/24/18 17:39 Dose: 25 gm - Labs Labs: 05/22/18 06:45 05/22/18 06:45 PT 25.6 SECONDS (9.4-12.5) H 05/21/18 18:30 INR 2.31 05/21/18 18:30 APTT 44.0 Seconds (26.9-38.3) H 05/21/18 18:30 Attending/Attestation - Attestation I have personally seen and examined this patient.: Yes I have fully participated in the care of the patient.: Yes I have reviewed all pertinent clinical information, including history, physical exam and plan: Yes
--- NOTE | 2018-05-24 16:32 | PN ---
DATE: 05/24/2018 SUBJECTIVE: The patient has no complaints of any chest pain, no shortness of breath, headaches. Pain is controlled. PHYSICAL EXAMINATION: VITAL SIGNS: Temperature is 99, pulse of 80, blood pressure 185/100, and respirations 20. GENERAL: The patient is lying in bed, flat, comfortable. HEENT: No oral lesion. Anicteric sclerae. Moist mucosa. NECK: No JVD, adenopathy, or thyromegaly. CARDIOVASCULAR: S1 and S2, regular. No murmurs, rubs, or gallops. LUNGS: Clear to auscultation bilaterally. No wheeze, rales, or rhonchi. ABDOMEN: Bowel sounds are positive, soft, nontender and nondistended. EXTREMITIES: Left second toe with gangrene. LABORATORY DATA: White count of 9.5, hemoglobin 9.8, creatinine is 1.1; these are labs from 05/22/2018. ASSESSMENT: 1. Gangrenous left second toe. 2. Peripheral arterial disease. 3. Diabetes type 2. 4. Hypertension. 5. Coronary artery disease. 6. Atrial fibrillation, on Coumadin. 7. PENICILLIN ALLERGY. PLAN: The patient is currently receiving aztreonam for antibiotics because of PENICILLIN ALLERGY. She is on metformin for diabetes. She is going to continue with insulin for her diabetes as well. She is on Lipitor for dyslipidemia. She is going to be on Lovenox for her anticoagulation for atrial fibrillation. She is on Norvasc for hypertension. She is on Tylenol as needed for pain. She will most likely need amputation of her toe. She is on a heart-healthy diet. Kailash Watkins MD
--- NOTE | 2018-05-24 17:36 | PN ---
DATE: 05/24/2018 SUBJECTIVE: The patient is in bed with no acute distress and seen earlier on exam. PHYSICAL EXAMINATION: VITAL SIGNS: Temperature is 99, blood pressure is 180/100, respiratory rate 18, heart rate of 92. HEENT: Unremarkable. NECK: Supple. LUNGS: Decreased breath sounds. HEART: Normal, S1, S2. ABDOMEN: Soft. LABORATORY DATA: Reveals a white count of 9.5, hemoglobin of 9, BUN of 21, creatinine of 1.1. Blood cultures are negative. MEDICATIONS: Review of medications reveals the patient is on Azactam. ASSESSMENT AND PLAN: A 67-year-old female with a history of hypertension, chronic atrial fibrillation, diabetes mellitus, coronary artery disease, recurrent urinary tract infections, peripheral vascular disease with second toe gangrene. The patient is diabetic, hypertensive, coronary artery disease, peripheral vascular disease, currently on intermittent vancomycin and . Yemi Aguilar MD
--- NOTE | 2018-05-24 17:43 | MRI ---
Date of service: 05/24/2018 PROCEDURE: MRI of the left foot without contrast. HISTORY: gagraneous left 2nd digit COMPARISON: Comparison is made with the previous x-ray of the left foot dated 05/21/2018 TECHNIQUE: Axial coronal and sagittal MRI images of the left foot were obtained without IV contrast administration. FINDINGS: Suboptimal study degraded by motion artifacts. There is bone marrow edema and cortical erosion/destruction noted at the distal phalanx of the 2nd toe suggestive of osteomyelitis. No evidence of other acute pathology in the osseous structure noted in this limited study. No MRI evidence of discrete fluid collection. Arthritic degenerative changes are noted. Mild diffuse edema noted. [id number] diffuse increased signal in tendon and muscle suggestive of tendinopathy and myositis. IMPRESSION: Findings suggestive of acute osteomyelitis involving the distal phalanx of the 2nd toe.
[2018-05-25] MEDS: Aztreonam 1 Gm in NS 100mL 100 ML IVPB SCH ×3 (05:31→21:28)
[2018-05-25] MEDS: Insulin Lispro (HUMAlog) HIGH Coverage SC SCH ×4 (08:11→22:09)
[2018-05-25] MEDS: Insulin Human NPH/Reg 70/30 Vial(3 ml) SC SCH (10:18)
[2018-05-25] MEDS: Silver Sulfadiazine 1% Cream (25 gm) TP SCH ×2 (10:19→17:50)
--- NOTE | 2018-05-25 10:26 | CP.PCM.PN ---
<Hernan Bernabe - Last Filed: 05/25/18 10:24> Subjective - Date & Time of Evaluation Date of Evaluation: 05/25/18 Time of Evaluation: 10:24 - Subjective Subjective: Podiatry Progress Note - Dr. Kim/Isa 67F seen and evaluated this AM for left second digit gangrene. Patient resting comfortably, NAD. No acute events overnight. Patient reports pain in left foot remains unchanged, admits to finding pain relief when her legs are in the dependent position. Dressing to LLE clean/dry/intact. Denies n/v/f/d/c/sob/salazar/cp/dizziness. Objective - Vital Signs/Intake and Output Vital Signs (last 24 hours): Temp Pulse Resp BP Pulse Ox 97.9 F 74 20 150/72 96 05/25/18 06:00 05/25/18 06:00 05/25/18 06:00 05/25/18 10:18 05/25/18 06:00 - Medications Medications: Current Medications Acetaminophen (Tylenol 325mg Tab) 650 mg PO Q6H PRN PRN Reason: Fever >100.4 F Amlodipine Besylate (Norvasc) 10 mg PO DAILY [facility] Last Admin: 05/25/18 10:18 Dose: 10 mg Atorvastatin Calcium (Lipitor) 40 mg PO QOTHERDAY [facility] Last Admin: 05/25/18 10:18 Dose: 40 mg Clonidine HCl (Catapres) 0.3 mg PO TID [facility] Last Admin: 05/25/18 10:18 Dose: 0.3 mg Dextrose (Dextrose 50% Inj) 50 ml IVP ONCE PRN PRN Reason: Hypoglycemia Glipizide (Glucotrol) 10 mg PO DAILY [facility] Last Admin: 05/25/18 10:21 Dose: Not Given Aztreonam (Azactam 1 Gm) 100 mls @ 100 mls/hr IVPB Q8 [facility]; Protocol Stop: 05/28/18 22:01 Last Admin: 05/25/18 05:31 Dose: 100 mls/hr Ibuprofen (Motrin Tab) 600 mg PO Q6H PRN PRN Reason: Pain, Mild (1-3) Last Admin: 05/25/18 05:32 Dose: 600 mg Insulin Human Lispro (Humalog High) 0 units SC [facility]; Protocol Last Admin: 05/25/18 08:11 Dose: Not Given Isosorbide Mononitrate (Imdur Er) 30 mg PO 0600 [facility] Last Admin: 05/25/18 05:31 Dose: 30 mg Meclizine HCl (Antivert) 25 mg PO TID PRN PRN Reason: dizzy Metformin HCl (Glucophage) 1,000 mg PO 0800,1700 [facility] Last Admin: 05/25/18 10:18 Dose: 1,000 mg Metoprolol Tartrate (Lopressor) 50 mg PO TID [facility] Last Admin: 05/25/18 10:18 Dose: 50 mg Silver Sulfadiazine (Silvadene 1% 25 Gm) 0 gm TP BID [facility] Last Admin: 05/25/18 10:19 Dose: 1 gm - Labs Labs: 05/22/18 06:45 05/22/18 06:45 PT 25.6 SECONDS (9.4-12.5) H 05/21/18 18:30 INR 2.31 05/21/18 18:30 APTT 44.0 Seconds (26.9-38.3) H 05/21/18 18:30 - Constitutional Appears: Well, Non-toxic, No Acute Distress - Head Exam Head Exam: ATRAUMATIC, NORMOCEPHALIC - Extremities Exam Additional comments: LLE focused VASC: DP and PT pulses nonpalpable; cap refill <3 seconds to digits 1,3,4,5 unable to assess 2nd digit; temp gradient warm to cool, 2nd digit cold to touch; no edema noted DERM: second digit gangrenous, completely black in color from the PIPJ distally; no other dermatological pathology ORTHO: Tenderness to palpation 2nd digit NEURO: gross and protective sensation mildly diminished - Neurological Exam Neurological Exam: Alert, Awake, Oriented x3 - Psychiatric Exam Psychiatric exam: Normal Affect, Normal Mood Assessment and Plan - Assessment and Plan (Free Text) Assessment: 67F with left second digit gangrene Plan: Patient seen and evaluated with Dr. Isa SHARIF Left foot XR: negative for OM LLE MRI: acute OM distal phalanx 2nd digit Arterial duplex: severely abnormal ABIs at rest limited by calcified vessels; L SFA occlusive disease; bilateral tibial occlusive disease Vascular consult, Dr. Marrufo - pending Will plan for removal of second digit on left foot, pending vascular consult Continue local wound care: betadine, DSD Podiatry will continue to follow <Melyssa Moss - Last Filed: 06/06/18 15:22> Objective - Vital Signs/Intake and Output Vital Signs (last 24 hours): Temp Pulse Resp BP Pulse Ox 98.1 F 101 H 20 148/74 94 L 06/06/18 12:00 06/06/18 13:00 06/06/18 13:00 06/06/18 13:01 06/06/18 13:00 Intake and Output: 06/06/18 06/06/18 06:59 18:59 Output Total 110 Balance -110 - Medications Medications: Current Medications Acetaminophen (Tylenol 325mg Tab) 650 mg PO Q6H PRN PRN Reason: Fever >100.4 F Last Admin: 05/30/18 01:30 Dose: 650 mg Albuterol/Ipratropium (Duoneb 3 Mg/0.5 Mg (3 Ml) Ud) 3 ml IH Q2H PRN PRN Reason: Shortness of Breath Amlodipine Besylate (Norvasc) 10 mg PO DAILY [facility] Last Admin: 06/02/18 09:34 Dose: Not Given Aspirin (Aspirin Chewable) 81 mg PO DAILY [facility] Last Admin: 06/06/18 10:19 Dose: 81 mg Atorvastatin Calcium (Lipitor) 40 mg PO QOTHERDAY [facility] Last Admin: 06/06/18 10:19 Dose: 40 mg Clonidine HCl (Catapres) 0.3 mg PO TID [facility] Last Admin: 06/03/18 10:50 Dose: Not Given Dextrose (Dextrose 50% Inj) 50 ml IVP ONCE PRN PRN Reason: Hypoglycemia Furosemide (Lasix) 40 mg IVP Q12 [facility] Last Admin: 06/06/18 10:19 Dose: 40 mg Heparin Sodium (Porcine) (Heparin) 5,000 units SC Q8 [facility]; Protocol Last Admin: 06/06/18 14:30 Dose: 5,000 units Hydralazine HCl (Apresoline) 10 mg IV Q6H PRN PRN Reason: Systolic Blood Pressure Last Admin: 06/06/18 08:49 Dose: 10 mg Hydralazine HCl (Apresoline) 25 mg PO Q6H [facility] Last Admin: 06/02/18 05:37 Dose: Not Given Hydromorphone HCl (Dilaudid) 0.5 mg IVP Q4H PRN PRN Reason: Pain, moderate (4-7) Last Admin: 06/06/18 09:05 Dose: 0.5 mg Heparin Sodium/Sodium Chloride (Heparin 52030 Units/250ml 1/2 Normal Saline) 25,000 units in 250 mls @ 16.248 mls/hr IV .[id number] PRN; Protocol PRN Reason: ADJUST RATE PER PROTOCOL Last Titration: 05/31/18 10:20 Dose: 0 units/kg/hr, 0 mls/hr Metronidazole (Flagyl) 500 mg in 100 mls @ 100 mls/hr IVPB Q8 [facility]; Protocol Last Admin: 06/06/18 14:30 Dose: 100 mls/hr Linezolid (Zyvox 600mg/300ml D5w) 600 mg in 300 mls @ 200 mls/hr IVPB Q12 [facility]; Protocol Stop: 06/08/18 13:31 Last Admin: 06/06/18 10:21 Dose: 200 mls/hr Aztreonam (Azactam 1 Gm) 100 mls @ 100 mls/hr IVPB Q12 [facility]; Protocol Stop: 06/09/18 22:01 Last Admin: 06/06/18 10:19 Dose: 100 mls/hr Insulin Human Lispro (Humalog High) 0 units SC ACHS [facility]; Protocol Last Admin: 06/06/18 14:31 Dose: Not Given Insulin Lispro Protam/Lispro Human (Humalog Mix 75/25) 10 units SC ACBD [facility] Last Admin: 06/06/18 08:45 Dose: Not Given Isosorbide Mononitrate (Imdur Er) 30 mg PO 0600 [facility] Last Admin: 06/03/18 05:08 Dose: Not Given Labetalol HCl (Trandate) 200 mg PO BID [facility] Last Admin: 06/02/18 09:34 Dose: Not Given Levalbuterol HCl (Xopenex) 1.25 mg IH [id number] [facility] Last Admin: 06/06/18 13:20 Dose: 1.25 mg Metoprolol Tartrate (Lopressor) 50 mg PO Q12H [facility] Last Admin: 05/30/18 01:30 Dose: 50 mg Metoprolol Tartrate (Lopressor) 5 mg IVP Q6H [facility] Last Admin: 06/06/18 10:56 Dose: 5 mg Nitroglycerin (Nitro-Bid 2% Oint) 1 ea TOP Q8H [facility] Last Admin: 06/06/18 10:34 Dose: 1 ea Ondansetron HCl (Zofran Inj) 4 mg IVP Q6H PRN PRN Reason: Nausea/Vomiting Oxychlorosene Sodium (Clorpactin Wcs-90) 2 gm TOP DAILY [facility] Last Admin: 06/06/18 10:46 Dose: 2 gm Pantoprazole Sodium (Protonix Inj) 40 mg IVP DAILY [facility] Last Admin: 06/06/18 10:20 Dose: 40 mg Simethicone (Mylicon Chew Tab) 80 mg PO PCHS PRN PRN Reason: GI distress Last Admin: 05/31/18 09:48 Dose: 80 mg - Labs Labs: 06/06/18 05:00 06/06/18 05:00 PT 23.6 SECONDS (9.4-12.5) H 06/02/18 10:05 INR 2.09 06/02/18 10:05 APTT 34.5 Seconds (26.9-38.3) 06/02/18 10:05 Attending/Attestation - Attestation I have personally seen and examined this patient.: Yes I have fully participated in the care of the patient.: Yes I have reviewed all pertinent clinical information, including history, physical exam and plan: Yes
--- NOTE | 2018-05-25 12:11 | CP.PCM.PN ---
Subjective - Date & Time of Evaluation Date of Evaluation: 05/25/18 Time of Evaluation: 09:40 - Subjective Subjective: Comfortable in bed, some soreness in the left foot but not increased, no fevers, no abdominal pain, no nausea, no diarrhea. Objective - Vital Signs/Intake and Output Vital Signs (last 24 hours): Temp Pulse Resp BP Pulse Ox 97.9 F 74 20 150/72 96 05/25/18 06:00 05/25/18 06:00 05/25/18 06:00 05/25/18 10:18 05/25/18 06:00 - Medications Medications: Current Medications Acetaminophen (Tylenol 325mg Tab) 650 mg PO Q6H PRN PRN Reason: Fever >100.4 F Amlodipine Besylate (Norvasc) 10 mg PO DAILY [facility] Last Admin: 05/25/18 10:18 Dose: 10 mg Atorvastatin Calcium (Lipitor) 40 mg PO QOTHERDAY [facility] Last Admin: 05/25/18 10:18 Dose: 40 mg Clonidine HCl (Catapres) 0.3 mg PO TID [facility] Last Admin: 05/25/18 10:18 Dose: 0.3 mg Dextrose (Dextrose 50% Inj) 50 ml IVP ONCE PRN PRN Reason: Hypoglycemia Glipizide (Glucotrol) 10 mg PO DAILY [facility] Last Admin: 05/25/18 10:21 Dose: Not Given Aztreonam (Azactam 1 Gm) 100 mls @ 100 mls/hr IVPB Q8 [facility]; Protocol Stop: 05/28/18 22:01 Last Admin: 05/25/18 05:31 Dose: 100 mls/hr Ibuprofen (Motrin Tab) 600 mg PO Q6H PRN PRN Reason: Pain, Mild (1-3) Last Admin: 05/25/18 05:32 Dose: 600 mg Insulin Human Lispro (Humalog High) 0 units SC ACHS [facility]; Protocol Last Admin: 05/25/18 11:58 Dose: 2 units Isosorbide Mononitrate (Imdur Er) 30 mg PO 0600 [facility] Last Admin: 05/25/18 05:31 Dose: 30 mg Meclizine HCl (Antivert) 25 mg PO TID PRN PRN Reason: dizzy Metformin HCl (Glucophage) 1,000 mg PO 0800,1700 [facility] Last Admin: 05/25/18 10:18 Dose: 1,000 mg Metoprolol Tartrate (Lopressor) 50 mg PO TID [facility] Last Admin: 05/25/18 10:18 Dose: 50 mg Silver Sulfadiazine (Silvadene 1% 25 Gm) 0 gm TP BID [facility] Last Admin: 05/25/18 10:19 Dose: 1 gm - Labs Labs: 05/22/18 06:45 05/22/18 06:45 PT 25.6 SECONDS (9.4-12.5) H 05/21/18 18:30 INR 2.31 05/21/18 18:30 APTT 44.0 Seconds (26.9-38.3) H 05/21/18 18:30 - Constitutional Appears: Non-toxic, No Acute Distress - Head Exam Head Exam: NORMAL INSPECTION - Respiratory Exam Respiratory Exam: Decreased Breath Sounds - Cardiovascular Exam Cardiovascular Exam: +S1, +S2 - GI/Abdominal Exam GI & Abdominal Exam: Soft. absent: Tenderness - Extremities Exam Additional comments: left foot with dressings in place Assessment and Plan - Assessment and Plan (Free Text) Plan: Assessment left 2nd toe gangrene with distal phalanx osteomyelitis on the same toe as seen on MRI, in this patient with probable peripheral vascular disease history of right leg skin and skin structure infection - patient has had a history of infection in the same leg with fasciotomy, I and D and debridement in September 2014 HTN DM history of left knee surgery history of shoulder surgery Atrial fibrillation history of CVA Plan discussed with Podiatry - patient will need evaluation by Dr. Eric Marrufo for the PVD - plan is for possible amputation of the digit if blood supply is adequate or if it can be addressed continue Vancomyicn and Azactam for now will continue to monitor clinically
--- NOTE | 2018-05-25 15:10 | PN ---
DATE: 05/25/2018 SUBJECTIVE: The patient is 67-year-old, seen and examined, was sent by Dr. Moss, for her worsening wound on the left second toe. The patient has history of chronic AFib, coronary artery disease and hypertension. She is insulin dependant diabetic, has been on IV antibiotics, off of Lovenox. PHYSICAL EXAMINATION: VITAL SIGNS: She is afebrile. Pulse 74, respiration 20 and blood pressure 150/72. LUNGS: Bilateral fair airflow. No rhonchi or crackle. HEART: S1 and S2, audible. ABDOMEN: Soft and nontender. No rebound. No guarding. NEUROLOGIC: She has a healing ulcer ventral hernia wound. Bilateral legs, she has chronic pigmentation, but no active wound from her weathers. LABORATORY DATA: Blood sugar is 162. She had MRI of the foot done that shows acute osteomyelitis involving distal phalanx of the second toe and she has arterial Doppler done that shows severely abnormal exam is limited because of calcified vessels. ASSESSMENT: 1. Peripheral vascular disease. 2. Left second toe osteomyelitis. 3. Insulin-dependant diabetes. 4. Hypertension. 5. Hyperlipidemia. 6. Chronic atrial fibrillation. PLAN: The patient's blood sugar is running on the right side. Monitor blood sugar closely. We will talk to Dr. Eric Marrufo and Dr. Melyssa Moss about further management. Jason Laws MD
[2018-05-25] MEDS ORDERED: Insulin Human NPH/Reg 70/30 Vial(3 ml) SC SCH (16:30)
[2018-05-25] MEDS: Insulin Lispro (humaLOG) MIX 75/25(10 ml) SC SCH (17:09)
--- NOTE | 2018-05-25 22:44 | CON ---
DATE: 05/25/2018 TIME: 6:22 p.m. CHIEF COMPLAINT/HISTORY OF PRESENT ILLNESS: This is a noncompliant 67-year-old female who presented with wet gangrene of the left second toe. She states the toe has been discolored and painful for the past two weeks. She has a history of diabetes. She is an ex-smoker who quit approximately five years ago. She has a history of coronary stents and atrial fibrillation, on Coumadin. Her GORAN/PVR exam on this admission is severely abnormal. The right GORAN is 0.34. The left GORAN is 0.41. On the left, there is SFA and tibial occlusive disease. On the right, there is primarily tibial occlusive disease. PHYSICAL EXAMINATION: Somewhat limited due to body habitus. Her femoral pulses are weak due to body habitus. She has a weakly palpable right popliteal pulse. Her left popliteal pulse is absent. Her distal pulses are absent. There is wet gangrene of the left second toe with erythema of the dorsum of the foot. I had a long discussion with Ms. Isbell concerning her options. We need to define her anatomy with an angiogram. Hopefully, there are some endovascular options to help re-perfuse the left foot. Dr. Moss is planning an amputation of the gangrenous left second toe. Hopefully, she will not necessitate a distal bypass. BKA is possible in this noncompliant patient. Everything was discussed at length with Ms. Isbell. She will be scheduled for an angiogram in the next one-two days. Eric Marrufo MD [facility]
[2018-05-26] MEDS: Aztreonam 1 Gm in NS 100mL 100 ML IVPB SCH ×3 (05:20→22:33)
[2018-05-26] MEDS: Insulin Lispro (HUMAlog) HIGH Coverage SC SCH ×3 (07:55→17:23)
[2018-05-26] MEDS: Insulin Lispro (humaLOG) MIX 75/25(10 ml) SC SCH ×2 (07:56→17:07)
[2018-05-26] MEDS ORDERED: Sodium Chloride 0.45% 1,000 ML IV SCH (12:00)
[2018-05-26] MEDS: Levalbuterol 1.25 MG/3 ML Inhal Soln UD IH SCH ×2 (13:04→20:50)
[2018-05-26] MEDS ORDERED: Vancomycin 2 GM in Sodium Chloride 0.9% 500 ML IVPB ONE (13:23)
--- NOTE | 2018-05-26 13:25 | CP.PCM.PN ---
Subjective - Date & Time of Evaluation Date of Evaluation: 05/26/18 Time of Evaluation: 11:10 - Subjective Subjective: No fevers, not in distress, no increase in left foot pain. Objective - Vital Signs/Intake and Output Vital Signs (last 24 hours): Temp Pulse Resp BP Pulse Ox 97.9 F 74 20 150/72 96 05/25/18 06:00 05/25/18 06:00 05/25/18 06:00 05/25/18 10:18 05/25/18 06:00 - Medications Medications: Current Medications Acetaminophen (Tylenol 325mg Tab) 650 mg PO Q6H PRN PRN Reason: Fever >100.4 F Amlodipine Besylate (Norvasc) 10 mg PO DAILY [facility] Last Admin: 05/25/18 10:18 Dose: 10 mg Atorvastatin Calcium (Lipitor) 40 mg PO QOTHERDAY [facility] Last Admin: 05/25/18 10:18 Dose: 40 mg Clonidine HCl (Catapres) 0.3 mg PO TID [facility] Last Admin: 05/25/18 10:18 Dose: 0.3 mg Dextrose (Dextrose 50% Inj) 50 ml IVP ONCE PRN PRN Reason: Hypoglycemia Glipizide (Glucotrol) 10 mg PO DAILY [facility] Last Admin: 05/25/18 10:21 Dose: Not Given Aztreonam (Azactam 1 Gm) 100 mls @ 100 mls/hr IVPB Q8 [facility]; Protocol Stop: 05/28/18 22:01 Last Admin: 05/25/18 05:31 Dose: 100 mls/hr Ibuprofen (Motrin Tab) 600 mg PO Q6H PRN PRN Reason: Pain, Mild (1-3) Last Admin: 05/25/18 05:32 Dose: 600 mg Insulin Human Lispro (Humalog High) 0 units SC ACHS [facility]; Protocol Last Admin: 05/25/18 11:58 Dose: 2 units Insulin Lispro Protam/Lispro Human (Humalog Mix 75/25) 10 units SC ACBD [facility] Isosorbide Mononitrate (Imdur Er) 30 mg PO 0600 [facility] Last Admin: 05/25/18 05:31 Dose: 30 mg Meclizine HCl (Antivert) 25 mg PO TID PRN PRN Reason: dizzy Metformin HCl (Glucophage) 1,000 mg PO 0800,1700 [facility] Last Admin: 05/25/18 10:18 Dose: 1,000 mg Metoprolol Tartrate (Lopressor) 50 mg PO TID [facility] Last Admin: 05/25/18 10:18 Dose: 50 mg Silver Sulfadiazine (Silvadene 1% 25 Gm) 0 gm TP BID [facility] Last Admin: 05/25/18 10:19 Dose: 1 gm - Labs Labs: 05/22/18 06:45 05/22/18 06:45 PT 25.6 SECONDS (9.4-12.5) H 05/21/18 18:30 INR 2.31 05/21/18 18:30 APTT 44.0 Seconds (26.9-38.3) H 05/21/18 18:30 - Constitutional Appears: No Acute Distress, Chronically Ill - Head Exam Head Exam: NORMAL INSPECTION - Respiratory Exam Respiratory Exam: Decreased Breath Sounds - Cardiovascular Exam Cardiovascular Exam: +S1, +S2 - GI/Abdominal Exam GI & Abdominal Exam: Soft. absent: Tenderness - Extremities Exam Additional comments: left foot with dressings in place Assessment and Plan - Assessment and Plan (Free Text) Plan: Assessment left 2nd toe gangrene with distal phalanx osteomyelitis on the same toe as seen on MRI, in this patient with probable peripheral vascular disease history of right leg skin and skin structure infection - patient has had a history of infection in the same leg with fasciotomy, I and D and debridement in September 2014 HTN DM history of left knee surgery history of shoulder surgery Atrial fibrillation history of CVA Plan discussed with Podiatry - patient evaluated by Dr. Eric Marrufo for the PVD - plan is for possible amputation of the digit if blood supply is adequate or if it can be addressed - patient is being scheduled for angiogram continue Vancomyicn and Azactam for now will continue to monitor clinically
[2018-05-26] MEDS: Silver Sulfadiazine 1% Cream (25 gm) TP SCH (13:37)
--- NOTE | 2018-05-26 15:57 | PN ---
DATE: 05/26/2018 SUBJECTIVE: The patient is 67 years old, seen and examined, seems bit nervous for the procedure tomorrow, complains of shortness of breath. The patient does have a longstanding history of smoking for more than 35 years one pack a day. PHYSICAL EXAMINATION VITAL SIGNS: She is afebrile. Pulse 84, respirations 18, and blood pressure 170/60. LUNGS: Bilateral good airflow. No rhonchi or crackles. HEART: S1 and S2 audible. ABDOMEN: Soft, nontender. No rebound. No guarding. NEUROLOGIC: The patient is awake, alert, oriented, able to communicate. EXTREMITIES: Bilateral leg chronic stasis dermatitis and brownish pigmentation. ASSESSMENT: 1. Severe peripheral vascular disease. 2. Left second toe gangrene, positive for osteomyelitis. 3. Noninsulin-dependent diabetes. 4. Hypertension. 5. Hyperlipidemia. 6. History of chronic obstructive pulmonary disease. PLAN: The patient has been started on IV fluids. We will monitor her blood sugar. We will stop metformin and add dose of Xanax to alleviate her anxiety, start her on Xopenex. We will follow up the patient in a.m. Jason Laws MD
[2018-05-27] MEDS: Levalbuterol 1.25 MG/3 ML Inhal Soln UD IH SCH ×4 (03:10→22:11)
[2018-05-27] MEDS: Aztreonam 1 Gm in NS 100mL 100 ML IVPB SCH ×2 (05:52→14:00)
[2018-05-27] MEDS: Insulin Lispro (humaLOG) MIX 75/25(10 ml) SC SCH (07:30)
[2018-05-27] MEDS: Insulin Lispro (HUMAlog) HIGH Coverage SC SCH ×2 (07:30→22:26)
[2018-05-27] MEDS ORDERED: Metoprolol 1 mg/ml Inj ONE ×2 (08:16→08:57)
[2018-05-27] MEDS ORDERED: Digoxin 500 mcg/2ml (0.5 mg/2ml) Inj IVP ONE (08:24)
[2018-05-27] MEDS ORDERED: Metoprolol 1 mg/ml Inj IVP ONE (08:24)
[2018-05-27] MEDS ORDERED: Digoxin 500 mcg/2ml (0.5 mg/2ml) Inj ONE (08:25)
[2018-05-27] MEDS ORDERED: Iodixanol 320 mg/ml 150 ml Bottle IV ONE (08:43)
[2018-05-27] MEDS ORDERED: Iodixanol 320 MG/ML 200 ML BOTTLE IV ONE (08:43)
[2018-05-27] MEDS ORDERED: Nitroglycerin 50mg in D5W 50 MG/250 ML BOTTLE IV ONE (08:43)
[2018-05-27] MEDS ORDERED: Lidocaine 2% Inj (20ml) ONE (08:43)
[2018-05-27] MEDS ORDERED: Morphine 4 mg/ml ISec ONE ×4 (08:44→11:55)
[2018-05-27] MEDS ORDERED: Midazolam 2 MG/2 ML VIAL ONE (09:16)
[2018-05-27] MEDS ORDERED: DiphenhydrAMINE 50 mg/ml Inj ONE (09:25)
[2018-05-27] MEDS ORDERED: Labetalol 5mg/ml (4ml) ONE (09:32)
[2018-05-27] MEDS: Silver Sulfadiazine 1% Cream (25 gm) TP SCH (10:30)
[2018-05-27] MEDS ORDERED: Nitroglycerin 2% Ointment Foilpak UD TOP ONE (10:40)
[2018-05-27] MEDS ORDERED: Sodium Chloride 0.45% 1,000 ML IV SCH (10:43)
[2018-05-27] MEDS: Nitroglycerin 50mg in D5W 50 MG/250 ML BOTTLE IV PRN (10:51)
[2018-05-27] MEDS: Nitroglycerin 2% Ointment Foilpak UD TOP SCH (11:21)
[2018-05-27] MEDS ORDERED: Morphine 4 mg/ml ISec SC ONE (11:55)
[2018-05-27] MEDS ORDERED: Morphine 4 mg/ml ISec IVP STA (11:55)
--- NOTE | 2018-05-27 12:11 | CARD ---
APPROVED REPORT Date of service: 05/27/2018 EKG Measurement Heart [id number] <Conclusion> Atrial fibrillation with rapid ventricular response Right superior axis deviation Nonspecific ST and T wave abnormality, probably digitalis effect Abnormal ECG
--- NOTE | 2018-05-27 13:00 | CP.PCM.CON ---
<Ariane Hernandez - Last Filed: 05/27/18 15:51> History of Present Illness - History of Present Illness History of Present Illness: Ariane Hernandez, PGY1 ICU Consult Note Reason for consult: SOB This is a 67 year old female with PMH of DM, HTN, HLD, afib on coumadin, CVA in 2013, CAD and PVD was admitted to the hospital on 05/21/18 for left foot second digit gangrene. Patient was referred to hospital by podiatry for two month history of worsening left foot second digit gangrene and there has been discussion of possibility for amputation due to poor vascular status. Patient has been following Dr. Moss and Dr. Morrell outpatient for her symptoms. Lower extremity GORAN on 05/22 revealed severely abnormal GORAN at rest limited by multiple areas of calcification, Left SFA occlusive disease and B/L tibial occlusive disease. LE MRI on 05/24 showed findings suggestive of acute osteomyelitis involving distal phalanx of second toe. Patient taken for left leg angiography today to assess anatomy and possible salvage of limb. Postoperatively, patient noted to have developed SOB. At time of evaluation, patient endorses nausea and denies CP, SOB, vomiting, fevers, chills, headaches, back pain, urinary complaints, numbness, tingling, muscle weakness and abdominal pain. 12 point ROS noted here, otherwise unremarkable. PMH: DM, HTN, HLD, afib on coumadin, CVA in 2013, CAD and PVD Sx: I&D of right lower extremity cellulitis, abdominal hernia SH: 40 pack year smoking history, quit 4-5 years ago, denies alcohol or illicit drug use FH: denies All: codeine, penicillins, clopidogrel, peaches, nectarines Past Patient History - Infectious Disease Hx of Infectious Diseases: None - Tetanus Immunizations Tetanus Immunization: Unknown - Past Social History Smoking Status: Former Smoker - CARDIAC Hx Cardiac Disorders: Yes Hx Hypertension: Yes Other/Comment: stents placed in heart, 2 - PULMONARY Hx Respiratory Disorders: No - NEUROLOGICAL HX Cerebrovascular Accident: Yes ((Residual L-sided weakness)) - HEENT Hx HEENT Problems: No - RENAL Hx Chronic Kidney Disease: No - ENDOCRINE/METABOLIC Hx Endocrine Disorders: Yes Hx Diabetes Mellitus Type 2: Yes - HEMATOLOGICAL/ONCOLOGICAL Hx Blood Disorders: Yes Hx Anemia: Yes - INTEGUMENTARY Hx Dermatological Problems: No - MUSCULOSKELETAL/RHEUMATOLOGICAL Hx Arthritis: Yes Hx Falls: No - GASTROINTESTINAL Hx Gastrointestinal Disorders: Yes Other/Comment: Increased Gas problems in abd since Stroke last year - GENITOURINARY/GYNECOLOGICAL Hx Genitourinary Disorders: No - PSYCHIATRIC Hx Psychophysiologic Disorder: No Hx Substance Use: No - SURGICAL HISTORY Hx Cardiac Catheterization: Yes Hx Coronary Stent: Yes (x2) Other/Comment: right leg r/t cellulitis 2015 - ANESTHESIA Hx Anesthesia: Yes Hx Anesthesia Reactions: No Meds Allergies/Adverse Reactions: Allergies Allergy/AdvReac Type Severity Reaction Status Date / Time codeine Allergy SHORTNESS Verified 07/18/17 11:45 OF BREATH Penicillins Allergy ANAPHYLAXIS Verified 07/18/17 11:45 clopidogrel AdvReac SHORTNESS Verified 07/18/17 11:45 OF BREATH peaches Allergy Severe REDNESS Uncoded 07/18/17 11:45 nectarines Allergy Mild SHORTNESS Uncoded 07/18/17 11:45 OF BREATH - Medications Medications: Current Medications Acetaminophen (Tylenol 325mg Tab) 650 mg PO Q6H PRN PRN Reason: Fever >100.4 F Alprazolam (Xanax) 0.25 mg PO BID PRN; Protocol PRN Reason: Anxiety Stop: 06/02/18 11:01 Amlodipine Besylate (Norvasc) 10 mg PO DAILY [facility] Last Admin: 05/27/18 10:30 Dose: Not Given Atorvastatin Calcium (Lipitor) 40 mg PO QOTHERDAY [facility] Last Admin: 05/27/18 10:30 Dose: Not Given Clonidine HCl (Catapres) 0.3 mg PO TID [facility] Last Admin: 05/27/18 10:30 Dose: Not Given Dextrose (Dextrose 50% Inj) 50 ml IVP ONCE PRN PRN Reason: Hypoglycemia Digoxin (Lanoxin) 0.25 mg PO 1400 PEYMAN Glipizide (Glucotrol) 10 mg PO DAILY [facility] Last Admin: 05/27/18 10:00 Dose: Not Given Aztreonam (Azactam 1 Gm) 100 mls @ 100 mls/hr IVPB Q8 [facility]; Protocol Stop: 05/28/18 22:01 Last Admin: 05/27/18 05:52 Dose: 100 mls/hr Sodium Chloride (Sodium Chloride 0.45%) 1,000 mls @ 50 mls/hr IV .Q20H [facility] Stop: 05/28/18 08:00 Nitroglycerin/Dextrose (Nitroglycerin 50 Mg/250 Ml D5w) 50 mg in 250 mls @ 6 mls/hr IV .Q24H PRN; Protocol PRN Reason: Systolic Blood Pressure Ibuprofen (Motrin Tab) 600 mg PO Q6H PRN PRN Reason: Pain, Mild (1-3) Last Admin: 05/25/18 21:29 Dose: 600 mg Insulin Human Lispro (Humalog High) 0 units SC ACHS [facility]; Protocol Last Admin: 05/27/18 07:30 Dose: Not Given Insulin Lispro Protam/Lispro Human (Humalog Mix 75/25) 10 units SC ACBD [facility] Last Admin: 05/27/18 07:30 Dose: Not Given Isosorbide Mononitrate (Imdur Er) 30 mg PO 0600 [facility] Last Admin: 05/26/18 05:12 Dose: 30 mg Levalbuterol HCl (Xopenex) 1.25 mg IH [id number] [facility] Last Admin: 05/27/18 07:34 Dose: Not Given Meclizine HCl (Antivert) 25 mg PO TID PRN PRN Reason: dizzy Metoprolol Tartrate (Lopressor) 50 mg PO TID [facility] Last Admin: 05/27/18 10:30 Dose: Not Given Nitroglycerin (Nitro-Bid 2% Oint) 1 ea TOP Q8H [facility] Last Admin: 05/27/18 11:21 Dose: Not Given Silver Sulfadiazine (Silvadene 1% 25 Gm) 0 gm TP BID [facility] Last Admin: 05/27/18 10:30 Dose: Not Given Physical Exam - Constitutional Appears: No Acute Distress - Head Exam Head Exam: ATRAUMATIC, NORMAL INSPECTION - Eye Exam Eye Exam: EOMI - ENT Exam ENT Exam: Mucous Membranes Moist - Neck Exam Neck exam: Positive for: Normal Inspection - Respiratory Exam Respiratory Exam: Clear to Auscultation Bilateral. absent: Accessory Muscle Use, Wheezes, Respiratory Distress - Cardiovascular Exam Cardiovascular Exam: Irregular Rhythm, +S1, +S2 - GI/Abdominal Exam GI & Abdominal Exam: Normal Bowel Sounds. absent: Firm, Guarding, Tenderness - Extremities Exam Extremities exam: Negative for: calf tenderness Additional comments: Left foot second digit black discoloration noted. Muscle strength in B/L upper and lower extremities are 5/5, no focal sensory deficits appreciated. Distal pulses are minimally appreciated - Neurological Exam Neurological exam: Alert, CN II-XII Intact, Oriented x3 - Skin Skin Exam: Dry, Warm Results - Vital Signs Recent Vital Signs: Last Vital Signs Temp 97.8 F 05/27/18 11:34 Pulse 92 H 05/27/18 11:34 Resp 24 05/27/18 11:34 BP 196/64 H 05/27/18 11:34 Pulse Ox 98 05/27/18 07:00 - Labs Result Diagrams: 05/27/18 15:37 05/22/18 06:45 Labs: Laboratory Results - last 24 hr 05/26/18 05/26/18 05/26/18 11:19 15:57 20:58 POC Glucose (mg/dL) 189 H 166 H 207 H 05/27/18 06:26 POC Glucose (mg/dL) 158 H Assessment & Plan - Assessment and Plan (Free Text) Assessment: This is a 67 year old female with PMH of DM, HTN, HLD, afib on coumadin, CVA in 2013, CAD and PVD was admitted to the hospital on 05/21/18 for left foot second digit gangrene. ICU consulted after patient developed SOB postoperatively from left leg angiogram. Patient currently resting comfortably while on non- rebreather with O2 sat of 100%. ABG reads pH 7.28, pCO2 35, O2 44, bicarb of 16.4. Patient admitted for hypoxic respiratory failure complicated by hypertensive emergency in the setting of cardiogenic pulmonary edema and diastolic heart failure. Plan: Neuro: -maintain normothermia -AAO x3, moving extremities spontaneously past midline Cardio: Hx of afib on coumain -holding coumadin for now -maintain MAP>65 Hypertensive emergency -goal of MAP reduction by 25% in the first 4 hours -troponin pending -echo pending final read -on norvasc 10mg, lopressor 50mg TID, imdur 30mg, 0.25mg digoxin -Cardio on consult, Dr. Coronado Lungs: Hypoxic respiratory failure -Start BIPAP -SaO2 >90% -supplementary O2 PRN, bipap -CXR 05/27 shows right sided vascular congestion -xopenex q6 ID: -afebrile -Lower extremity GORAN on 05/22 revealed severely abnormal GORAN at rest limited by multiple areas of calcification, Left SFA occlusive disease and B/L tibial occlusive disease. -LE MRI on 05/24 showed findings suggestive of acute osteomyelitis involving distal phalanx of second toe. -s/p left leg angiography on 05/27, possible left foot second digit amputation -blood culture negative after 5 days . Repeat urine/blood cx pending -procalc pending -day 7 astrecarolinm -ID on consult, Dr. Aguilar -Surgery on consult, Dr Morrell -Podiatry on consult, Dr. Moss -IR on consult, Dr. Marrufo Renal: -maintain euvolemia -avoid nephrotoxic agents, hypochloremia -replace electrolytes as needed -ABG reads pH 7.28, pCO2 35, O2 44, bicarb of 16.4; metabolic acidosis -Nephro on consult, Dr. Watkins -lasix 40 q12 IV Heme: -holding DVT prophylaxis for now for possible surgery, left leg osteomyelitis Endo: -maintain euglycemia -on insulin ACHS, humalog mix 10 units ACBD GI: -liquid diet Patient seen and case discussed with attending, Dr. Rm <Bello Rm - Last Filed: 05/27/18 16:08> Meds - Medications Medications: Current Medications Acetaminophen (Tylenol 325mg Tab) 650 mg PO Q6H PRN PRN Reason: Fever >100.4 F Amlodipine Besylate (Norvasc) 10 mg PO DAILY [facility] Last Admin: 05/27/18 10:30 Dose: Not Given Atorvastatin Calcium (Lipitor) 40 mg PO QOTHERDAY [facility] Last Admin: 05/27/18 10:30 Dose: Not Given Clonidine HCl (Catapres) 0.3 mg PO TID [facility] Last Admin: 05/27/18 14:00 Dose: 0.3 mg Dextrose (Dextrose 50% Inj) 50 ml IVP ONCE PRN PRN Reason: Hypoglycemia Digoxin (Lanoxin) 0.25 mg PO 1400 [facility] Furosemide (Lasix) 40 mg IVP Q12 [facility] Glipizide (Glucotrol) 10 mg PO DAILY [facility] Last Admin: 05/27/18 10:00 Dose: Not Given Aztreonam (Azactam 1 Gm) 100 mls @ 100 mls/hr IVPB Q8 [facility]; Protocol Stop: 05/28/18 22:01 Last Admin: 05/27/18 05:52 Dose: 100 mls/hr Nitroglycerin/Dextrose (Nitroglycerin 50 Mg/250 Ml D5w) 50 mg in 250 mls @ 6 mls/hr IV .Q24H PRN; Protocol PRN Reason: Systolic Blood Pressure Insulin Human Lispro (Humalog High) 0 units SC ACHS [facility]; Protocol Last Admin: 05/27/18 07:30 Dose: Not Given Insulin Lispro Protam/Lispro Human (Humalog Mix 75/25) 10 units SC ACBD [facility] Last Admin: 05/27/18 07:30 Dose: Not Given Isosorbide Mononitrate (Imdur Er) 30 mg PO 0600 [facility] Last Admin: 05/26/18 05:12 Dose: 30 mg Levalbuterol HCl (Xopenex) 1.25 mg IH [id number] [facility] Last Admin: 05/27/18 13:04 Dose: Not Given Meclizine HCl (Antivert) 25 mg PO TID PRN PRN Reason: dizzy Metoprolol Tartrate (Lopressor) 50 mg PO TID [facility] Last Admin: 05/27/18 10:30 Dose: Not Given Nitroglycerin (Nitro-Bid 2% Oint) 1 ea TOP Q8H [facility] Last Admin: 05/27/18 11:21 Dose: Not Given Silver Sulfadiazine (Silvadene 1% 25 Gm) 0 gm TP BID [facility] Last Admin: 05/27/18 10:30 Dose: Not Given Results - Vital Signs Recent Vital Signs: Last Vital Signs Temp 98.7 F 05/27/18 15:34 Pulse 97 H 05/27/18 15:34 Resp 18 05/27/18 15:34 BP 175/65 H 05/27/18 15:34 Pulse Ox 98 05/27/18 07:00 - Labs Result Diagrams: 05/27/18 15:37 05/27/18 15:37 Labs: Laboratory Results - last 24 hr 05/26/18 05/26/18 05/26/18 11:19 15:57 20:58 WBC RBC Hgb Hct MCV MCH MCHC RDW Plt Count MPV Neut % (Auto) Lymph % (Auto) [place] % (Auto) Eos % (Auto) Baso % (Auto) Lymph # (Auto) [place] # (Auto) Eos # (Auto) Baso # (Auto) Absolute Neuts (auto) pCO2 pO2 HCO3 ABG pH ABG Total CO2 ABG O2 Saturation ABG O2 Content ABG Base Excess ABG Hemoglobin ABG Carboxyhemoglobin POC ABG HHb (Measured) ABG Methemoglobin ABG O2 Capacity Hgb O2 Saturation FiO2 Crit Value Called To Crit Value Called By Blood Gas Notified Time Sodium Potassium Chloride Carbon Dioxide Anion Gap BUN Creatinine Est GFR ( Amer) Est GFR (Non-Af Amer) POC Glucose (mg/dL) 189 H 166 H 207 H Random Glucose Calcium Phosphorus Magnesium Total Bilirubin AST ALT Alkaline Phosphatase Troponin I Total Protein Albumin Globulin Albumin/Globulin Ratio 05/27/18 05/27/18 05/27/18 06:26 13:00 15:37 WBC RBC Hgb Hct MCV MCH MCHC RDW Plt Count MPV Neut % (Auto) Lymph % (Auto) [place] % (Auto) Eos % (Auto) Baso % (Auto) Lymph # (Auto) [place] # (Auto) Eos # (Auto) Baso # (Auto) Absolute Neuts (auto) pCO2 35 pO2 44.0 L* HCO3 16.4 L ABG pH 7.28 L ABG Total CO2 17.5 L ABG O2 Saturation 80.6 L ABG O2 Content 9.7 L ABG Base Excess -9.5 L ABG Hemoglobin 8.8 L ABG Carboxyhemoglobin 2.3 H POC ABG HHb (Measured) 18.8 H ABG Methemoglobin 1.0 ABG O2 Capacity 12.0 L Hgb O2 Saturation 77.9 L FiO2 28.0 Crit Value Called To Dr rm Crit Value Called By Charlie donovan Blood Gas Notified Time 110 Sodium 139 Potassium 5.3 H Chloride 113 H Carbon Dioxide 18 L Anion Gap 13 BUN 34 H Creatinine 1.2 Est GFR ( Amer) 54 Est GFR (Non-Af Amer) 45 POC Glucose (mg/dL) 158 H Random Glucose 217 H Calcium 8.5 Phosphorus 4.1 Magnesium 1.7 Total Bilirubin 1.3 AST 31 ALT 27 Alkaline Phosphatase 260 H D Troponin I < 0.01 Total Protein 7.4 Albumin 3.5 Globulin 3.9 Albumin/Globulin Ratio 0.9 L 05/27/18 15:37 WBC 13.7 H D RBC 3.75 Hgb 9.4 L Hct 29.6 L MCV 78.9 L MCH 25.1 MCHC 31.8 RDW 15.3 H Plt Count 311 MPV 8.8 Neut % (Auto) 91.4 H Lymph % (Auto) 4.7 L [place] % (Auto) 3.0 Eos % (Auto) 0.4 L Baso % (Auto) 0.5 Lymph # (Auto) 0.6 L [place] # (Auto) 0.4 Eos # (Auto) 0.1 Baso # (Auto) 0.07 Absolute Neuts (auto) 12.54 H pCO2 pO2 HCO3 ABG pH ABG Total CO2 ABG O2 Saturation ABG O2 Content ABG Base Excess ABG Hemoglobin ABG Carboxyhemoglobin POC ABG HHb (Measured) ABG Methemoglobin ABG O2 Capacity Hgb O2 Saturation FiO2 Crit Value Called To Crit Value Called By Blood Gas Notified Time Sodium Potassium Chloride Carbon Dioxide Anion Gap BUN Creatinine Est GFR ( Amer) Est GFR (Non-Af Amer) POC Glucose (mg/dL) Random Glucose Calcium Phosphorus Magnesium Total Bilirubin AST ALT Alkaline Phosphatase Troponin I Total Protein Albumin Globulin Albumin/Globulin Ratio Attending/Attestation - Attestation I have personally seen and examined this patient.: Yes I have fully participated in the care of the patient.: Yes I have reviewed all pertinent clinical information: Yes Notes (Text): 05/27/18 16:[address] Rm note
[2018-05-27 13:08] LABS: ARTERIAL BLOOD GAS HCO3 16.4 mmol/L (21-28); ARTERIAL BLOOD GAS HEMOGLOBIN 8.8 g/dL (11.7-17.4); ARTERIAL BLOOD GAS O2 CONTENT 9.7 ML/dl (15-23); ARTERIAL BLOOD GAS O2 SAT 80.6 % (95-98); ARTERIAL BLOOD GAS PCO2 35 mm/Hg (35-45); ARTERIAL BLOOD GAS PH 7.28 (7.35-7.45); ARTERIAL BLOOD GAS TCO2 17.5 mmol.L (22-28)
[2018-05-27] MEDS ORDERED: Insulin Regular 1 UNITS/0.01 ML ML SC STA (14:45)
[2018-05-27] MEDS ORDERED: Sodium Bicarbonate 8.4% 150 MEQ in Dextrose 5% In Water 1,000 ML IV SCH (14:45)
[2018-05-27] MEDS ORDERED: Insulin Regular 1 UNITS/0.01 ML ML SC ONE (14:46)
[2018-05-27] MEDS ORDERED: Insulin Regular 100 units/ml ONE (14:47)
--- NOTE | 2018-05-27 14:58 | RAD ---
Date of service: 05/27/2018 HISTORY: SOB COMPARISON: Portable chest 05/27/2018 8:58 a.m.. FINDINGS: LUNGS: Underlying mid inferior pulmonary infiltrates are not excluded. PLEURA: Limited right greater than left pleural effusions remains suspected. No pneumothorax bilaterally. CARDIOVASCULAR: Calcific atherosclerotic changes are seen related to the thoracic aorta. Cardiomegaly appears stable. Pulmonary vascular congestion may have increased slightly. OSSEOUS STRUCTURES: No significant abnormalities. VISUALIZED UPPER ABDOMEN: Normal. OTHER FINDINGS: None. IMPRESSION: Mild increase in pulmonary vascular congestion suspected. Underlying airspace disease not excluded bilaterally. Mild right greater than left pleural effusions persist.
--- NOTE | 2018-05-27 15:00 | RAD ---
Date of service: 05/27/2018 HISTORY: Shortness of breath. COMPARISON: 05/21/2018 FINDINGS: LUNGS: Pulmonary vascular congestion/pulmonary edema which is asymmetrical common the most significant/severe findings are in the right lower lobe. PLEURA: No significant pleural effusion identified, no pneumothorax apparent. CARDIOVASCULAR: Atherosclerotic calcifications identified primarily aortic arch. Cardiomegaly with associated worsening congestive heart failure. OSSEOUS STRUCTURES: No significant abnormalities. VISUALIZED UPPER ABDOMEN: Normal. OTHER FINDINGS: None. IMPRESSION: Cardiomegaly, CHF/pulmonary edema acute and progressive findings compared to the prior study.
--- NOTE | 2018-05-27 15:12 | PN ---
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 She is tentatively scheduled for peripheral angiography and possible vascular intervention today. She is dyspneic and noted be in atrial fibrillation with rapid ventricular response. She did receive some hydration overnight. CURRENT MEDICATIONS: Include Antivert, Azactam, Catapres, Glucotrol, insulin, Imdur, Lipitor 40 mg daily, metoprolol 50 mg 3 times a day, Norvasc 10 mg daily, Xopenex. PHYSICAL EXAMINATION: GENERAL: She is an overweight middle-aged woman. VITAL SIGNS: Her blood pressure is 160/90 with a pulse of 130 in atrial fibrillation, respirations are 14. She is afebrile. HEENT: No JVD. CHEST: Bibasilar rales. HEART: PMI displaced laterally with irregularly irregular rhythm with systolic murmur at the apex. ABDOMEN: Soft, mildly obese, nontender with normoactive bowel sounds. EXTREMITIES: Left foot is dressed with malodorous drainage. DIAGNOSTIC DATA: Morning blood work is pending. Electrocardiogram reveals atrial fibrillation with rapid ventricular response and secondary ST-T changes. Chest x-ray reveals large cardiac silhouette with bilateral congestive changes, greater on the left than on the right. IMPRESSION: 1. Atrial fibrillation with rapid ventricular response. 2. Decompensated congestive heart failure, acute on chronic; combined systolic and diastolic. 3. Coronary artery disease status post remote percutaneous coronary intervention. 4. History of moderate mitral regurgitation. 5. Peripheral vascular disease with gangrenous left second toe in need of amputation and possible debridement and revascularization. 6. Rest of the problems as noted. RECOMMENDATIONS: At this time, metoprolol and IV digoxin will be administered for heart rate control. Kelley catheter has been placed and IV Lasix has been administered. Given the urgent need for her amputation and potential revascularization, it would appear reasonable to proceed with coronary angiography today as planned. Limiting diet load as much as possible would be advised. Diuretic use following the procedure would be advisable as well. Transfer to telemetry upon completion of the procedure is advised. We will continue to follow and make further recommendations as appropriate. Mauro Dowell MD [facility] # [id number]
[2018-05-27 15:41] LABS: BASO # 0.07 K/mm3 (0.0-2.0); BASO % 0.5 % (0.0-3.0); EOS # 0.1 (0.0-0.7); EOS % 0.4 % (1.5-5.0); HEMOGLOBIN 9.4 g/dL (12.0-16.0); LYMPH # 0.6 (1.2-3.4); LYMPH % 4.7 % (22.0-35.0); MEAN CELL VOLUME 78.9 fl (80.0-105.0); MEAN CORPUSCULAR HEMOGLOBIN 25.1 pg (25.0-35.0); MEAN CORPUSCULAR HGB CONC 31.8 g/dl (31.0-37.0); MEAN PLATELET VOLUME 8.8 fl (7.0-11.0); MONO # 0.4 (0.1-0.6); PLATELET COUNT 311 10^3/uL (120.0-450.0); RBC 3.75 10^6/uL (3.5-6.1); RED CELL DISTRIBUTION WIDTH 15.3 % (11.5-14.5); WHITE BLOOD COUNT 13.7 10^3/uL (4.5-11.0)
[2018-05-27 15:55] LABS: ALB/GLOB RATIO 0.9 (1.1-1.8); ALBUMIN 3.5 g/dL (3.0-4.8); ALT/SGPT 27 U/L (7-56); AST/SGOT 31 U/L (14-36); BLOOD UREA NITROGEN 34 mg/dL (7-21); CALCIUM 8.5 mg/dL (8.4-10.5); GFR NON-AFRICAN AMERICAN 45
[2018-05-27 16:01] LABS: TROPONIN I < 0.01 ng/mL
[2018-05-27 16:30] LABS: ATYPICAL LYMPHOCYTE 1 % (0.0-0.0); LYMPHOCYTE 1 % (22.0-35.0); MONOCYTE 2 % (1.0-6.0); NEUTROPHIL 96 % (50.0-70.0)
[2018-05-27 16:31] LABS: BURR CELLS SLIGHT; OVALOCYTES SLIGHT; POIKILOCYTOSIS SLIGHT
--- NOTE | 2018-05-27 17:10 | PN ---
DATE: 05/27/2018 SUBJECTIVE: The patient is 67 years old, seen and examined, underwent angiography, was complaining of shortness of breath, has been on Xopenex. PHYSICAL EXAMINATION VITAL SIGNS: She is afebrile, pulse 96, respirations 18, blood pressure 163/89. LUNGS: Bilateral good airflow. No rhonchi or crackles. HEART: S1 and S2 audible. ABDOMEN: Soft, obese, nontender. No rebound. She has ventral hernia that seems to be healing and foul smelling. EXTREMITIES: Bilateral leg, pigmentation. No active wound; however, she has left second toe gangrene. LABORATORY DATA: Blood sugar is 158. ASSESSMENT 1. Severe peripheral vascular disease. 2. Left second toe gangrene. 3. MRI positive for osteomyelitis. 4. Chronic obstructive pulmonary disease. 5. Hypertension. 6. Hyperlipidemia. 7. Non-insulin dependent diabetes. 8. Ventral hernia. 9. ventral hernia wound, noninfectious. PLAN: The patient will be maintained on IV fluids for another 24 hours. We will continue on Azactam, then discuss with Dr. Eric Marrufo about the procedure. We will monitor her blood sugar. She is on digoxin and metoprolol. If the patient remains stable, possible amputation in a.m. Jason Laws MD
--- NOTE | 2018-05-27 18:36 | VASCULAR ---
Date of service: 05/27/2018 PROCEDURE: 1. Abdominal aortogram and bilateral lower extremity runoff with left selective views. 2. Distal left SFA and popliteal artery jet stream atherectomy and drug-eluting balloon angioplasty 3. Left anterior tibial artery origin jet stream atherectomy and angioplasty HISTORY: Severe peripheral vascular disease. Gangrene left foot. PHYSICIAN(S): Eric Marrufo M.D. TECHNIQUE: The relative risks and indications of the procedure were explained to the patient and consent obtained. The patient was hydrated prior to the procedure and the appropriate labs drawn. The patient was placed supine on the arteriogram table and the right groin prepped and draped in the usual sterile fashion. Conscious sedation and monitoring were provided throughout the procedure by a nurse. Via a right common femoral artery approach, a 5 Grenadian sheath was placed in the right groin. Through the sheath and over a guidewire, a 5 Grenadian flush catheter was placed in the abdominal aorta at the level of the renal arteries and a PA DSA abdominal aortogram performed. The catheter was pulled down to the aortic bifurcation and bilateral oblique DSA pelvic arteriograms performed. Overlapping bilateral lower extremity DSA arteriograms were obtained from the inguinal ligaments to the feet. A 0.035 angled Glidewire was advanced over the bifurcation and placed in the mid left SFA. A 7 Grenadian 65 cm destination sheath was placed in the mid left SFA. Heparin 5000 units IV and nitroglycerin in 250 mcg aliquots were given. The short segment occlusion of the distal left SFA and multi focal stenoses in the left popliteal artery were crossed rather easily with a 0.035 angled glidewire and 5 Grenadian catheter. The stenosis at the origin left anterior tibial artery is also crossed. Exchange is made for a 0.014 support wire. The origin of the left anterior tibial artery was dilated with 3.5 mm x 4 cm balloon. In addition, jet stream atherectomy of the origin left anterior tibial artery was performed with a 2.4/3.4 catheter. Jet stream atherectomy of the multifocal disease in the left popliteal artery was performed with a 2.4/3.4 catheter. Three passes were performed. Jet stream atherectomy of the distal left SFA occlusion was performed with a 2 4/3 4 catheter with paddles up. The left popliteal artery was dilated with a 4 mm x 8 cm drug-eluting balloon. The distal left SFA was dilated with a 5 mm by 150 mm drug-eluting balloon. Completion angiograms were obtained. The sheath was removed hemostasis obtained. The patient tolerated the procedure well. FINDINGS: Smooth diffuse vascular calcification is present. Imaging of the renal arteries is somewhat degraded by calcification and motion. No obvious severe stenosis is seen. There infrarenal abdominal aorta is mildly tortuous and patent. Aortic bifurcation is patent. The common external iliac arteries are widely patent on two views. The internal iliac arteries are patent bilaterally. Right lower extremity: The right common femoral artery is patent. The right profunda femoral artery is patent. The right superficial femoral artery is smoothly calcified patent throughout its course. There are 3 moderate to severe stenoses of the right popliteal artery below the knee.. There is severe right trifurcation and tibial occlusive disease. There is 1 vessel runoff via the right anterior tibial artery. The right posterior tibial and peroneal arteries are occluded proximally. Left lower extremity: Left common femoral artery is patent. The left profunda femoral artery is patent. There is a 5 cm calcified occlusion of the distal left SFA. In addition there are multi focal severe stenoses in the left popliteal artery below the knee. There is severe left trifurcation and tibial occlusive disease. There is a high-grade stenosis of the origin of the left anterior tibial artery. The left peroneal artery is continuous to the ankle. The left posterior tibial artery is occluded. IMPRESSION: 1.Successful distal left SFA and popliteal artery jet stream atherectomy and drug-eluting balloon angioplasty 2. Jet stream atherectomy and angioplasty of the left anterior tibial artery origin 3. 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 Multiple stenoses in the right popliteal artery below the knee.
--- NOTE | 2018-05-27 19:01 | CON ---
DATE: 05/27/2018 HISTORY OF PRESENT ILLNESS: This is a 67-year lady with history of severe peripheral vascular disease, diabetes mellitus type 2, coronary artery disease status post prior multivessel PCIs, who was admitted this time to [facility] with gangrenous left second toe. The patient had angioplasty in the popliteal artery by Dr. Eric Marrufo and was transferred to PACU once procedure was done. The patient developed hypoxemic respiratory failure and subsequent chest x-ray revealed bilateral vascular congestion, which combined with significant elevation of the blood pressure suggesting diagnosis of hypertensive emergency with cardiogenic pulmonary edema. The patient was started on nitroglycerin drip. Lasix was given and the patient was put on BiPAP. Echocardiogram was ordered stat and currently being performed. No nausea, no vomiting, no diarrhea, no constipation, no chest pain. No fever, chills, or sweats. PAST MEDICAL HISTORY: Coronary artery disease, diabetes mellitus type 2, severe peripheral vascular disease, atrial fibrillation. CURRENT MEDICATIONS: Antivert, Azactam, clonidine, Glucophage, Glucotrol, Imdur, Lipitor, metoprolol, and Norvasc. ALLERGIES: CODEINE, PENICILLIN, PLAVIX. SOCIAL HISTORY: The patient is ex-smoker. No alcohol or illicit drug abuse. No current smoking. FAMILY HISTORY: Noncontributory. REVIEW OF SYSTEMS: Review of 12-organ system other than mentioned in history present illness is negative. PHYSICAL EXAMINATION: VITAL SIGNS: Blood pressure 196/81, oxygen saturation 94% on BiPAP, 14/6 with FiO2 40%. Heart rate 90, respiratory rate 17. ENT: Head and neck atraumatic. LUNGS: Few crackles bilaterally. HEART: Regular rate and rhythm. S1, S2 distant. ABDOMEN: Soft, nontender, nondistended. MUSCULOSKELETAL EXAM: 1+ bilateral pedal and ankle edema. NEURO: The patient moves all extremities spontaneously. SKIN: Moist. PSYCH: The patient is lethargic; however, easily arousable, alert, awake, and oriented x3. LABORATORY DATA: WBC 9.5, hemoglobin 9.8, platelet count 241. Sodium 143, potassium 4.2, chloride 113, carbon dioxide 21, BUN 21, creatinine 1.1, glucose 158, AST 19, ALT 20, total bilirubin 0.9. CURRENT MEDICATIONS: Tylenol p.r.n., Norvasc, Lipitor, aztreonam, clonidine, digoxin 0.25 mg daily, Lasix 40 mg IV q. 12 (80 mg given today) insulin 75/25, regular insulin sliding scale high protocol, isosorbide mononitrate 30 mg p.o. 6 in the morning, Xopenex every 6 hours, Antivert, metoprolol, Vancomycin given yesterday. Chest x-ray showed bilateral vascular congestion. EKG showed atrial fibrillation with rapid ventricular response with heart rate 125, no specific ischemic changes (this EKG was done prior to procedure in the morning, we will follow up on EKG now. ASSESSMENT AND PLAN: This is a 67-year-old lady, who now presented with hypertensive emergency complicated by cardiogenic pulmonary edema/hypoxemic respiratory failure after angioplasty of the left vascular bed (stents in the common iliac artery and popliteal artery). At present time, we will proceed with preload reduction with Lasix and nitroglycerin drip as well as afterload reduction with clonidine, amlodipine as well as noninvasive positive pressure ventilation. We will aim at dropping MAP by 15% during first 1 hr and further 15% over the next 23 hrs. The patient will be going to Intensive Care Unit with management and monitoring. We will follow up on CBC, CMP, troponin, and lactic acid. The patient does have metabolic acidosis and did have elevated creatinine 5 days ago. Nephrology consult (Dr. Watkins) was requested. Hopefully with improved ventilation acid-base abnormalities will be more compensated (BiPAP). We will continue target euvolemia, euglycemia, normothermia, and oxygen saturation more than 90%. We will continue with deep vein thrombosis and gastrointestinal prophylaxis. We will start aspirin and TAC with heparin to prevent stroke in afib. No plavix as per Dr. Marrufo as patient might be going for second toe (L) amputation. Addendum: repeated ABG showed improved metabolic acidosis ccm time 40 min Bello Rm MD [facility] # [id number] MTDD
[2018-05-27 19:47] LABS: INR 1.54; PARTIAL THROMBOPLASTIN TIME 35.4 Seconds (26.9-38.3); PROTHROMBIN TIME 17.1 SECONDS (9.4-12.5)
[2018-05-27 23:26] LABS: ARTERIAL BLOOD GAS HCO3 16.7 mmol/L (21-28); ARTERIAL BLOOD GAS HEMOGLOBIN 8.7 g/dL (11.7-17.4); ARTERIAL BLOOD GAS O2 CAPACITY 11.9 mL/dl (16-24); ARTERIAL BLOOD GAS O2 CONTENT 11.7 ML/dl (15-23); ARTERIAL BLOOD GAS PCO2 31 mm/Hg (35-45); ARTERIAL BLOOD GAS PH 7.34 (7.35-7.45); ARTERIAL BLOOD GAS TCO2 17.7 mmol.L (22-28)
[2018-05-28] MEDS: Aztreonam 1 Gm in NS 100mL 100 ML IVPB SCH ×4 (00:40→21:42)
[2018-05-28] MEDS: Heparin25000 units/250ml 1/2NS 25,000 UNITS/250 ML BAG IV PRN ×2 (00:44→13:30)
[2018-05-28] MEDS: Nitroglycerin 50mg in D5W 50 MG/250 ML BOTTLE IV PRN ×2 (03:27→11:45)
[2018-05-28] MEDS: Levalbuterol 1.25 MG/3 ML Inhal Soln UD IH SCH ×4 (03:42→19:31)
--- NOTE | 2018-05-28 06:35 | CP.PCM.CON ---
<Sera Maciel - Last Filed: 05/28/18 18:33> History of Present Illness - History of Present Illness History of Present Illness: Nephrology Consult note for Dr. Watkins 67yo female PMHx DM, HTN, HLD, Afib on coumadin, CVA 2013, CAD, PVD admitted on 05/21/18 for left foot second digit gangrene. Lower extremity GORAN on 05/22 revealed severely abnormal GORAN at rest limited by multiple areas of calcification, Left SFA occlusive disease and B/L tibial occlusive disease. LE MRI on 05/24 showed findings suggestive of acute osteomyelitis involving distal phalanx of second toe. Patient taken for LLE angio 05/27 to assess anatomy and possible salvage of limb. Postop patient transferred to MICU for management as she became SOB. Nephrology consulted for GILBERTO. This AM patient seen and examined at bedside wearing BiPAP. Overnight patient made 500cc urine. She complained of SOB without BiPAP. She also complained of L foot pain. Patient denied fever, headache, dizziness, chest pain, cough, abd pain, nausea, vomiting, bowel disturbance, swelling in legs b/l. 12 point ROS reviewed and negative unless otherwise mentioned above. PMHx: DM, HTN, HLD, afib on coumadin, CVA in 2013, CAD and PVD SurgHx: I&D of right lower extremity cellulitis, abdominal hernia SocHx: 40 pack year smoking history, quit 4-5 years ago, denies alcohol or illicit drug use FamHx: denies All: codeine, penicillins, clopidogrel, peaches, nectarines Review of Systems - Review of Systems All systems: reviewed and no additional remarkable complaints except Review of Systems: as per HPI Past Patient History - Infectious Disease Hx of Infectious Diseases: None - Tetanus Immunizations Tetanus Immunization: Unknown - Past Social History Smoking Status: Former Smoker - CARDIAC Hx Cardiac Disorders: Yes Hx Hypertension: Yes Other/Comment: stents placed in heart, 2 - PULMONARY Hx Respiratory Disorders: No - NEUROLOGICAL HX Cerebrovascular Accident: Yes ((Residual L-sided weakness)) - HEENT Hx HEENT Problems: No - RENAL Hx Chronic Kidney Disease: No - ENDOCRINE/METABOLIC Hx Endocrine Disorders: Yes Hx Diabetes Mellitus Type 2: Yes - HEMATOLOGICAL/ONCOLOGICAL Hx Blood Disorders: Yes Hx Anemia: Yes - INTEGUMENTARY Hx Dermatological Problems: No - MUSCULOSKELETAL/RHEUMATOLOGICAL Hx Arthritis: Yes Hx Falls: No - GASTROINTESTINAL Hx Gastrointestinal Disorders: Yes Other/Comment: Increased Gas problems in abd since Stroke last year - GENITOURINARY/GYNECOLOGICAL Hx Genitourinary Disorders: No - PSYCHIATRIC Hx Psychophysiologic Disorder: No Hx Substance Use: No - SURGICAL HISTORY Hx Cardiac Catheterization: Yes Hx Coronary Stent: Yes (x2) Other/Comment: right leg r/t cellulitis 2015 - ANESTHESIA Hx Anesthesia: Yes Hx Anesthesia Reactions: No Meds Allergies/Adverse Reactions: Allergies Allergy/AdvReac Type Severity Reaction Status Date / Time codeine Allergy SHORTNESS Verified 07/18/17 11:45 OF BREATH Penicillins Allergy ANAPHYLAXIS Verified 07/18/17 11:45 clopidogrel AdvReac SHORTNESS Verified 07/18/17 11:45 OF BREATH peaches Allergy Severe REDNESS Uncoded 07/18/17 11:45 nectarines Allergy Mild SHORTNESS Uncoded 07/18/17 11:45 OF BREATH - Medications Medications: Current Medications Acetaminophen (Tylenol 325mg Tab) 650 mg PO Q6H PRN PRN Reason: Fever >100.4 F Amlodipine Besylate (Norvasc) 10 mg PO DAILY [facility] Last Admin: 05/27/18 10:30 Dose: Not Given Aspirin (Aspirin Chewable) 81 mg PO DAILY [facility] Atorvastatin Calcium (Lipitor) 40 mg PO QOTHERDAY [facility] Last Admin: 05/27/18 10:30 Dose: Not Given Clonidine HCl (Catapres) 0.3 mg PO TID [facility] Last Admin: 05/27/18 14:00 Dose: 0.3 mg Dextrose (Dextrose 50% Inj) 50 ml IVP ONCE PRN PRN Reason: Hypoglycemia Digoxin (Lanoxin) 0.25 mg PO 1400 [facility] Furosemide (Lasix) 40 mg IVP Q12 [facility] Glipizide (Glucotrol) 10 mg PO DAILY [facility] Last Admin: 05/27/18 10:00 Dose: Not Given Aztreonam (Azactam 1 Gm) 100 mls @ 100 mls/hr IVPB Q8 [facility]; Protocol Stop: 05/28/18 22:01 Last Admin: 05/28/18 00:40 Dose: 100 mls/hr Nitroglycerin/Dextrose (Nitroglycerin 50 Mg/250 Ml D5w) 50 mg in 250 mls @ 6 mls/hr IV .Q24H PRN; Protocol PRN Reason: Systolic Blood Pressure Last Admin: 05/28/18 03:27 Dose: 60 mcg/min, 18 mls/hr Heparin Sodium/Sodium Chloride (Heparin 22156 Units/250ml 1/2 Normal Saline) 25,000 units in 250 mls @ 10 mls/hr IV .Q24H PRN; Protocol PRN Reason: ADJUST RATE PER PROTOCOL Last Admin: 05/28/18 00:44 Dose: 10 mls/hr Vancomycin HCl 2 gm/ Sodium (Chloride) 500 mls @ 170 mls/hr IVPB ONCE ONE; Protocol Stop: 05/28/18 09:56 Insulin Human Lispro (Humalog High) 0 units SC ACHS [facility]; Protocol Last Admin: 05/27/18 22:26 Dose: Not Given Insulin Lispro Protam/Lispro Human (Humalog Mix 75/25) 10 units SC ACBD [facility] Last Admin: 05/27/18 07:30 Dose: Not Given Isosorbide Mononitrate (Imdur Er) 30 mg PO 0600 [facility] Last Admin: 05/26/18 05:12 Dose: 30 mg Levalbuterol HCl (Xopenex) 1.25 mg IH [id number] [facility] Last Admin: 05/28/18 03:42 Dose: Not Given Meclizine HCl (Antivert) 25 mg PO TID PRN PRN Reason: dizzy Metoprolol Tartrate (Lopressor) 50 mg PO TID [facility] Last Admin: 05/27/18 18:00 Dose: 50 mg Nitroglycerin (Nitro-Bid 2% Oint) 1 ea TOP Q8H [facility] Last Admin: 05/27/18 11:21 Dose: Not Given Silver Sulfadiazine (Silvadene 1% 25 Gm) 0 gm TP BID [facility] Last Admin: 05/27/18 10:30 Dose: Not Given Physical Exam - Constitutional Appears: Non-toxic, No Acute Distress - Head Exam Head Exam: ATRAUMATIC, NORMAL INSPECTION, NORMOCEPHALIC - Eye Exam Eye Exam: EOMI, Normal appearance, PERRL. absent: Conjunctival injection, Scleral icterus - ENT Exam ENT Exam: Mucous Membranes Moist Additional comments: BiPAP in place - Neck Exam Neck exam: Positive for: Full Rom, Normal Inspection - Respiratory Exam Respiratory Exam: Decreased Breath Sounds, NORMAL BREATHING PATTERN. absent: Accessory Muscle Use - Cardiovascular Exam Cardiovascular Exam: Tachycardia, +S1, +S2 - GI/Abdominal Exam GI & Abdominal Exam: Normal Bowel Sounds, Soft. absent: Firm, Guarding, Rigid - Rectal Exam Rectal Exam: Deferred - Extremities Exam Extremities exam: Negative for: pedal edema Additional comments: Grangrenous left 2nd toe noted - Neurological Exam Neurological exam: Alert, Oriented x3 - Psychiatric Exam Psychiatric exam: Normal Affect, Normal Mood - Skin Skin Exam: Dry, Warm Results - Vital Signs Recent Vital Signs: Last Vital Signs Temp 98 F 05/27/18 18:04 Pulse 83 05/28/18 00:10 Resp 22 05/28/18 00:10 BP 182/76 H 05/27/18 18:04 Pulse Ox 95 05/28/18 00:10 - Labs Result Diagrams: 05/28/18 08:40 05/28/18 08:40 Labs: Laboratory Results - last 24 hr 05/27/18 05/27/18 05/27/18 06:26 13:00 15:37 WBC RBC Hgb Hct MCV MCH MCHC RDW Plt Count MPV Neut % (Auto) Lymph % (Auto) [place] % (Auto) Eos % (Auto) Baso % (Auto) Lymph # (Auto) [place] # (Auto) Eos # (Auto) Baso # (Auto) Absolute Neuts (auto) Neutrophils % (Manual) Lymphocytes % (Manual) Atypical Lymphs % Monocytes % (Manual) Poikilocytosis (manual Ovalocytes Pierz Cells PT INR APTT pCO2 35 pO2 44.0 L* HCO3 16.4 L ABG pH 7.28 L ABG Total CO2 17.5 L ABG O2 Saturation 80.6 L ABG O2 Content 9.7 L ABG Base Excess -9.5 L ABG Hemoglobin 8.8 L ABG Carboxyhemoglobin 2.3 H POC ABG HHb (Measured) 18.8 H ABG Methemoglobin 1.0 ABG O2 Capacity 12.0 L Hgb O2 Saturation 77.9 L FiO2 28.0 Crit Value Called To Dr yi Crit Value Called By Charlie donovan Blood Gas Notified Time 110 Sodium 139 Potassium 5.3 H Chloride 113 H Carbon Dioxide 18 L Anion Gap 13 BUN 34 H Creatinine 1.2 Est GFR ( Amer) 54 Est GFR (Non-Af Amer) 45 POC Glucose (mg/dL) 158 H Random Glucose 217 H Calcium 8.5 Phosphorus 4.1 Magnesium 1.7 Total Bilirubin 1.3 AST 31 ALT 27 Alkaline Phosphatase 260 H D Troponin I < 0.01 Total Protein 7.4 Albumin 3.5 Globulin 3.9 Albumin/Globulin Ratio 0.9 L Procalcitonin 05/27/18 05/27/18 05/27/18 15:37 15:37 19:00 WBC 13.7 H D RBC 3.75 Hgb 9.4 L Hct 29.6 L MCV 78.9 L MCH 25.1 MCHC 31.8 RDW 15.3 H Plt Count 311 MPV 8.8 Neut % (Auto) 91.4 H Lymph % (Auto) 4.7 L [place] % (Auto) 3.0 Eos % (Auto) 0.4 L Baso % (Auto) 0.5 Lymph # (Auto) 0.6 L [place] # (Auto) 0.4 Eos # (Auto) 0.1 Baso # (Auto) 0.07 Absolute Neuts (auto) 12.54 H Neutrophils % (Manual) 96 H Lymphocytes % (Manual) 1 L Atypical Lymphs % 1 H Monocytes % (Manual) 2 Poikilocytosis (manual Slight Ovalocytes Slight Pierz Cells Slight PT 17.1 H INR 1.54 APTT 35.4 pCO2 pO2 HCO3 ABG pH ABG Total CO2 ABG O2 Saturation ABG O2 Content ABG Base Excess ABG Hemoglobin ABG Carboxyhemoglobin POC ABG HHb (Measured) ABG Methemoglobin ABG O2 Capacity Hgb O2 Saturation FiO2 Crit Value Called To Crit Value Called By Blood Gas Notified Time Sodium Potassium Chloride Carbon Dioxide Anion Gap BUN Creatinine Est GFR ( Amer) Est GFR (Non-Af Amer) POC Glucose (mg/dL) Random Glucose Calcium Phosphorus Magnesium Total Bilirubin AST ALT Alkaline Phosphatase Troponin I Total Protein Albumin Globulin Albumin/Globulin Ratio Procalcitonin 0.43 05/27/18 05/28/18 23:00 05:56 WBC RBC Hgb Hct MCV MCH MCHC RDW Plt Count MPV Neut % (Auto) Lymph % (Auto) [place] % (Auto) Eos % (Auto) Baso % (Auto) Lymph # (Auto) [place] # (Auto) Eos # (Auto) Baso # (Auto) Absolute Neuts (auto) Neutrophils % (Manual) Lymphocytes % (Manual) Atypical Lymphs % Monocytes % (Manual) Poikilocytosis (manual Ovalocytes Hema Cells PT INR APTT pCO2 31 L pO2 73.0 L HCO3 16.7 L ABG pH 7.34 L ABG Total CO2 17.7 L ABG O2 Saturation 98.0 ABG O2 Content 11.7 L ABG Base Excess -8.2 L ABG Hemoglobin 8.7 L ABG Carboxyhemoglobin 2.6 H POC ABG HHb (Measured) 1.9 ABG Methemoglobin 0.8 ABG O2 Capacity 11.9 L Hgb O2 Saturation 94.7 L FiO2 40.0 Crit Value Called To Crit Value Called By Blood Gas Notified Time Sodium Potassium Chloride Carbon Dioxide Anion Gap BUN Creatinine Est GFR ( Amer) Est GFR (Non-Af Amer) POC Glucose (mg/dL) 159 H Random Glucose Calcium Phosphorus Magnesium Total Bilirubin AST ALT Alkaline Phosphatase Troponin I Total Protein Albumin Globulin Albumin/Globulin Ratio Procalcitonin Assessment & Plan - Assessment and Plan (Free Text) Assessment: - GILBERTO on CKD3b likely contrast induced nephropathy - Anion gap metabolic acidosis - Hypochromic Microcytic Anemia - CKD 3b - Hypertension Plan: Patient's vitals, blood work, imaging noted. Patient likely has CKD 3b in light of GFR. GILBERTO likely secondary to contrast induced nephropathy in light of rise in Creatinine after angiogram. At this time, ordered random urine protein and creatinine, urine urea, and urine eosinophils. F/u PTHi and 25OH vit D. Started patient on Labetalol 100bid for tighter BP control and d/c Lopressor. Renal u/s and u/a ordered- will f/u. In light of anemia, iron studies ordered to f/u. Monitor Is and Os. Continue management as per primary and MICU team. Nephrology will continue to follow Discussed with Dr. Roland Maciel PGY3 <Kailash Watkins S - Last Filed: 05/28/18 21:53> Meds - Medications Medications: Current Medications Acetaminophen (Tylenol 325mg Tab) 650 mg PO Q6H PRN PRN Reason: Fever >100.4 F Last Admin: 05/28/18 21:42 Dose: 650 mg Amlodipine Besylate (Norvasc) 10 mg PO DAILY [facility] Last Admin: 05/28/18 09:00 Dose: 10 mg Aspirin (Aspirin Chewable) 81 mg PO DAILY [facility] Last Admin: 05/28/18 09:17 Dose: 81 mg Atorvastatin Calcium (Lipitor) 40 mg PO QOTHERDAY [facility] Last Admin: 05/27/18 10:30 Dose: Not Given Clonidine HCl (Catapres) 0.3 mg PO TID [facility] Last Admin: 05/28/18 17:51 Dose: 0.3 mg Dextrose (Dextrose 50% Inj) 50 ml IVP ONCE PRN PRN Reason: Hypoglycemia Digoxin (Lanoxin) 0.25 mg PO 1400 [facility] Last Admin: 05/28/18 14:18 Dose: 0.25 mg Furosemide (Lasix) 40 mg IV BID [facility] Last Admin: 05/28/18 17:50 Dose: 40 mg Glipizide (Glucotrol) 10 mg PO DAILY [facility] Last Admin: 05/27/18 10:00 Dose: Not Given Aztreonam (Azactam 1 Gm) 100 mls @ 100 mls/hr IVPB Q8 [facility]; Protocol Stop: 05/28/18 22:01 Last Admin: 05/28/18 21:42 Dose: 100 mls/hr Nitroglycerin/Dextrose (Nitroglycerin 50 Mg/250 Ml D5w) 50 mg in 250 mls @ 6 mls/hr IV .Q24H PRN; Protocol PRN Reason: Systolic Blood Pressure Last Titration: 05/28/18 19:00 Dose: 100 mcg/min, 30 mls/hr Heparin Sodium/Sodium Chloride (Heparin 47240 Units/250ml 1/2 Normal Saline) 25,000 units in 250 mls @ 10 mls/hr IV .Q24H PRN; Protocol PRN Reason: ADJUST RATE PER PROTOCOL Last Admin: 05/28/18 13:30 Dose: 11.8 mls/hr Insulin Human Lispro (Humalog High) 0 units SC ACHS [facility]; Protocol Last Admin: 05/28/18 17:39 Dose: Not Given Insulin Lispro Protam/Lispro Human (Humalog Mix 75/25) 10 units SC ACBD [facility] Last Admin: 05/28/18 18:35 Dose: 10 u Isosorbide Mononitrate (Imdur Er) 30 mg PO 0600 [facility] Last Admin: 05/28/18 09:17 Dose: 30 mg Labetalol HCl (Trandate) 100 mg PO BID [facility] Last Admin: 05/28/18 17:50 Dose: 100 mg Levalbuterol HCl (Xopenex) 1.25 mg IH [id number] [facility] Last Admin: 05/28/18 19:31 Dose: 1.25 mg Meclizine HCl (Antivert) 25 mg PO TID PRN PRN Reason: dizzy Metoprolol Tartrate (Lopressor) 50 mg PO Q12H [facility] Last Admin: 05/28/18 14:18 Dose: 50 mg Nitroglycerin (Nitro-Bid 2% Oint) 1 ea TOP Q8H [facility] Last Admin: 05/27/18 11:21 Dose: Not Given Silver Sulfadiazine (Silvadene 1% 25 Gm) 0 gm TP BID [facility] Last Admin: 05/28/18 18:32 Dose: Not Given Results - Vital Signs Recent Vital Signs: Last Vital Signs Temp 97.8 F 05/28/18 20:00 Pulse 77 05/28/18 21:00 Resp 19 05/28/18 21:00 BP 136/64 05/28/18 21:00 Pulse Ox 98 05/28/18 21:00 - Labs Result Diagrams: 05/28/18 08:40 05/28/18 08:40 Labs: Laboratory Results - last 24 hr 05/27/18 05/27/18 05/27/18 12:08 14:37 23:00 WBC RBC Hgb Hct MCV MCH MCHC RDW Plt Count MPV Neut % (Auto) Lymph % (Auto) [place] % (Auto) Eos % (Auto) Baso % (Auto) Lymph # (Auto) [place] # (Auto) Eos # (Auto) Baso # (Auto) Absolute Neuts (auto) Retic Count PT INR APTT pCO2 31 L pO2 73.0 L HCO3 16.7 L ABG pH 7.34 L ABG Total CO2 17.7 L ABG O2 Saturation 98.0 ABG O2 Content 11.7 L ABG Base Excess -8.2 L ABG Hemoglobin 8.7 L ABG Carboxyhemoglobin 2.6 H POC ABG HHb (Measured) 1.9 ABG Methemoglobin 0.8 ABG O2 Capacity 11.9 L Hgb O2 Saturation 94.7 L FiO2 40.0 Sodium Potassium Chloride Carbon Dioxide Anion Gap BUN Creatinine Est GFR ( Amer) Est GFR (Non-Af Amer) POC Glucose (mg/dL) 212 H 221 H Random Glucose Calcium Phosphorus Magnesium Iron TIBC % Saturation Transferrin Ferritin Total Bilirubin AST ALT Alkaline Phosphatase Troponin I Total Protein Albumin Globulin Albumin/Globulin Ratio 25-OH Vitamin D Total Urine Color Urine Appearance Urine pH Ur Specific [place] Urine Protein Urine Glucose (UA) Urine Ketones Urine Blood Urine Nitrate Urine Bilirubin Urine Urobilinogen Ur Leukocyte Esterase Urine RBC Urine WBC Ur Epithelial Cells Urine Bacteria Urine Eosinophils Ur Random Creatinine U Random Total Protein Ur Random Urea Nitrogn 05/28/18 05/28/18 05/28/18 05:56 06:50 06:50 WBC 11.9 H RBC 3.61 Hgb 9.0 L Hct 28.3 L MCV 78.4 L MCH 24.9 L MCHC 31.8 RDW 15.2 H Plt Count 298 MPV 8.5 Neut % (Auto) 82.2 H Lymph % (Auto) 10.3 L [place] % (Auto) 5.1 Eos % (Auto) 1.8 Baso % (Auto) 0.6 Lymph # (Auto) 1.2 [place] # (Auto) 0.6 Eos # (Auto) 0.2 Baso # (Auto) 0.07 Absolute Neuts (auto) 9.79 H Retic Count PT INR APTT pCO2 pO2 HCO3 ABG pH ABG Total CO2 ABG O2 Saturation ABG O2 Content ABG Base Excess ABG Hemoglobin ABG Carboxyhemoglobin POC ABG HHb (Measured) ABG Methemoglobin ABG O2 Capacity Hgb O2 Saturation FiO2 Sodium 143 Potassium 4.6 Chloride 114 H Carbon Dioxide 20 L Anion Gap 13 BUN 35 H Creatinine 1.5 H Est GFR ( Amer) 42 Est GFR (Non-Af Amer) 35 POC Glucose (mg/dL) 159 H Random Glucose 152 H Calcium 8.7 Phosphorus 3.9 Magnesium 1.8 Iron TIBC % Saturation Transferrin Ferritin Total Bilirubin 0.9 AST 32 ALT 32 Alkaline Phosphatase 227 H Troponin I Total Protein 6.9 Albumin 3.2 Globulin 3.7 Albumin/Globulin Ratio 0.9 L 25-OH Vitamin D Total Urine Color Urine Appearance Urine pH Ur Specific [place] Urine Protein Urine Glucose (UA) Urine Ketones Urine Blood Urine Nitrate Urine Bilirubin Urine Urobilinogen Ur Leukocyte Esterase Urine RBC Urine WBC Ur Epithelial Cells Urine Bacteria Urine Eosinophils Ur Random Creatinine U Random Total Protein Ur Random Urea Nitrogn 05/28/18 05/28/18 05/28/18 06:50 06:50 07:45 WBC RBC Hgb Hct MCV MCH MCHC RDW Plt Count MPV Neut % (Auto) Lymph % (Auto) [place] % (Auto) Eos % (Auto) Baso % (Auto) Lymph # (Auto) [place] # (Auto) Eos # (Auto) Baso # (Auto) Absolute Neuts (auto) Retic Count PT 17.3 H INR 1.53 APTT 47.2 H pCO2 pO2 HCO3 ABG pH ABG Total CO2 ABG O2 Saturation ABG O2 Content ABG Base Excess ABG Hemoglobin ABG Carboxyhemoglobin POC ABG HHb (Measured) ABG Methemoglobin ABG O2 Capacity Hgb O2 Saturation FiO2 Sodium Potassium Chloride Carbon Dioxide Anion Gap BUN Creatinine Est GFR ( Amer) Est GFR (Non-Af Amer) POC Glucose (mg/dL) 152 H Random Glucose Calcium Phosphorus Magnesium Iron TIBC % Saturation Transferrin Ferritin Total Bilirubin AST ALT Alkaline Phosphatase Troponin I Total Protein Albumin Globulin Albumin/Globulin Ratio 25-OH Vitamin D Total Urine Color Urine Appearance Urine pH Ur Specific [place] Urine Protein Urine Glucose (UA) Urine Ketones Urine Blood Urine Nitrate Urine Bilirubin Urine Urobilinogen Ur Leukocyte Esterase Urine RBC Urine WBC Ur Epithelial Cells Urine Bacteria Urine Eosinophils Ur Random Creatinine U Random Total Protein Ur Random Urea Nitrogn 05/28/18 05/28/18 05/28/18 08:40 08:40 08:40 WBC 12.2 H RBC 3.65 Hgb 9.0 L Hct 28.6 L MCV 78.4 L MCH 24.7 L MCHC 31.5 RDW 15.2 H Plt Count 289 MPV 8.5 Neut % (Auto) 83.8 H Lymph % (Auto) 10.6 L [place] % (Auto) 3.3 Eos % (Auto) 1.6 Baso % (Auto) 0.7 Lymph # (Auto) 1.3 [place] # (Auto) 0.4 Eos # (Auto) 0.2 Baso # (Auto) 0.08 Absolute Neuts (auto) 10.20 H Retic Count 2.32 H PT INR APTT pCO2 pO2 HCO3 ABG pH ABG Total CO2 ABG O2 Saturation ABG O2 Content ABG Base Excess ABG Hemoglobin ABG Carboxyhemoglobin POC ABG HHb (Measured) ABG Methemoglobin ABG O2 Capacity Hgb O2 Saturation FiO2 Sodium 141 Potassium 4.7 Chloride 114 H Carbon Dioxide 20 L Anion Gap 11 BUN 35 H Creatinine 1.6 H Est GFR ( Amer) 39 Est GFR (Non-Af Amer) 32 POC Glucose (mg/dL) Random Glucose 167 H Calcium 8.6 Phosphorus Magnesium Iron 40 L TIBC 267 % Saturation 15 L Transferrin Ferritin 83.0 Total Bilirubin AST ALT Alkaline Phosphatase Troponin I 0.02 D Total Protein Albumin Globulin Albumin/Globulin Ratio 25-OH Vitamin D Total Urine Color Urine Appearance Urine pH Ur Specific [place] Urine Protein Urine Glucose (UA) Urine Ketones Urine Blood Urine Nitrate Urine Bilirubin Urine Urobilinogen Ur Leukocyte Esterase Urine RBC Urine WBC Ur Epithelial Cells Urine Bacteria Urine Eosinophils Ur Random Creatinine U Random Total Protein Ur Random Urea Nitrogn 05/28/18 05/28/18 05/28/18 08:40 08:40 10:15 WBC RBC Hgb Hct MCV MCH MCHC RDW Plt Count MPV Neut % (Auto) Lymph % (Auto) [place] % (Auto) Eos % (Auto) Baso % (Auto) Lymph # (Auto) [place] # (Auto) Eos # (Auto) Baso # (Auto) Absolute Neuts (auto) Retic Count PT INR APTT pCO2 pO2 HCO3 ABG pH ABG Total CO2 ABG O2 Saturation ABG O2 Content ABG Base Excess ABG Hemoglobin ABG Carboxyhemoglobin POC ABG HHb (Measured) ABG Methemoglobin ABG O2 Capacity Hgb O2 Saturation FiO2 Sodium Potassium Chloride Carbon Dioxide Anion Gap BUN Creatinine Est GFR ( Amer) Est GFR (Non-Af Amer) POC Glucose (mg/dL) Random Glucose Calcium Phosphorus Magnesium Iron TIBC % Saturation Transferrin 198.75 L Ferritin Total Bilirubin AST ALT Alkaline Phosphatase Troponin I Total Protein Albumin Globulin Albumin/Globulin Ratio 25-OH Vitamin D Total 45.3 Urine Color Urine Appearance Urine pH Ur Specific [place] Urine Protein Urine Glucose (UA) Urine Ketones Urine Blood Urine Nitrate Urine Bilirubin Urine Urobilinogen Ur Leukocyte Esterase Urine RBC Urine WBC Ur Epithelial Cells Urine Bacteria Urine Eosinophils Ur Random Creatinine U Random Total Protein Cancelled Ur Random Urea Nitrogn 312 05/28/18 05/28/18 05/28/18 10:15 10:15 10:15 WBC RBC Hgb Hct MCV MCH MCHC RDW Plt Count MPV Neut % (Auto) Lymph % (Auto) [place] % (Auto) Eos % (Auto) Baso % (Auto) Lymph # (Auto) [place] # (Auto) Eos # (Auto) Baso # (Auto) Absolute Neuts (auto) Retic Count PT INR APTT pCO2 pO2 HCO3 ABG pH ABG Total CO2 ABG O2 Saturation ABG O2 Content ABG Base Excess ABG Hemoglobin ABG Carboxyhemoglobin POC ABG HHb (Measured) ABG Methemoglobin ABG O2 Capacity Hgb O2 Saturation FiO2 Sodium Potassium Chloride Carbon Dioxide Anion Gap BUN Creatinine Est GFR ( Amer) Est GFR (Non-Af Amer) POC Glucose (mg/dL) Random Glucose Calcium Phosphorus Magnesium Iron TIBC % Saturation Transferrin Ferritin Total Bilirubin AST ALT Alkaline Phosphatase Troponin I Total Protein Albumin Globulin Albumin/Globulin Ratio 25-OH Vitamin D Total Urine Color Yellow Urine Appearance Clear Urine pH 5.0 Ur Specific [place] 1.020 Urine Protein 30 H Urine Glucose (UA) Negative Urine Ketones Negative Urine Blood Trace-lysed H Urine Nitrate Negative Urine Bilirubin Negative Urine Urobilinogen 0.2 Ur Leukocyte Esterase Trace H Urine RBC 2 - 5 H Urine WBC 5 - 10 H Ur Epithelial Cells 4 - 5 Urine Bacteria Mod Urine Eosinophils Negative Ur Random Creatinine 58 U Random Total Protein Ur Random Urea Nitrogn 05/28/18 05/28/18 05/28/18 10:15 10:59 16:05 WBC RBC Hgb Hct MCV MCH MCHC RDW Plt Count MPV Neut % (Auto) Lymph % (Auto) [place] % (Auto) Eos % (Auto) Baso % (Auto) Lymph # (Auto) [place] # (Auto) Eos # (Auto) Baso # (Auto) Absolute Neuts (auto) Retic Count PT INR APTT pCO2 pO2 HCO3 ABG pH ABG Total CO2 ABG O2 Saturation ABG O2 Content ABG Base Excess ABG Hemoglobin ABG Carboxyhemoglobin POC ABG HHb (Measured) ABG Methemoglobin ABG O2 Capacity Hgb O2 Saturation FiO2 Sodium Potassium Chloride Carbon Dioxide Anion Gap BUN Creatinine Est GFR ( Amer) Est GFR (Non-Af Amer) POC Glucose (mg/dL) 149 H 144 H Random Glucose Calcium Phosphorus Magnesium Iron TIBC % Saturation Transferrin Ferritin Total Bilirubin AST ALT Alkaline Phosphatase Troponin I Total Protein Albumin Globulin Albumin/Globulin Ratio 25-OH Vitamin D Total Urine Color Urine Appearance Urine pH Ur Specific [place] Urine Protein Urine Glucose (UA) Urine Ketones Urine Blood Urine Nitrate Urine Bilirubin Urine Urobilinogen Ur Leukocyte Esterase Urine RBC Urine WBC Ur Epithelial Cells Urine Bacteria Urine Eosinophils Ur Random Creatinine U Random Total Protein 55 Ur Random Urea Nitrogn 05/28/18 20:00 WBC RBC Hgb Hct MCV MCH MCHC RDW Plt Count MPV Neut % (Auto) Lymph % (Auto) [place] % (Auto) Eos % (Auto) Baso % (Auto) Lymph # (Auto) [place] # (Auto) Eos # (Auto) Baso # (Auto) Absolute Neuts (auto) Retic Count PT 17.6 H INR 1.59 APTT pCO2 pO2 HCO3 ABG pH ABG Total CO2 ABG O2 Saturation ABG O2 Content ABG Base Excess ABG Hemoglobin ABG Carboxyhemoglobin POC ABG HHb (Measured) ABG Methemoglobin ABG O2 Capacity Hgb O2 Saturation FiO2 Sodium Potassium Chloride Carbon Dioxide Anion Gap BUN Creatinine Est GFR ( Amer) Est GFR (Non-Af Amer) POC Glucose (mg/dL) Random Glucose Calcium Phosphorus Magnesium Iron TIBC % Saturation Transferrin Ferritin Total Bilirubin AST ALT Alkaline Phosphatase Troponin I Total Protein Albumin Globulin Albumin/Globulin Ratio 25-OH Vitamin D Total Urine Color Urine Appearance Urine pH Ur Specific [place] Urine Protein Urine Glucose (UA) Urine Ketones Urine Blood Urine Nitrate Urine Bilirubin Urine Urobilinogen Ur Leukocyte Esterase Urine RBC Urine WBC Ur Epithelial Cells Urine Bacteria Urine Eosinophils Ur Random Creatinine U Random Total Protein Ur Random Urea Nitrogn Assessment & Plan - Assessment and Plan (Free Text) Plan: Pt seen and examined by me. I have reviewed the note of the medical transcription supervisor and I agree with it. I have discussed the assessment and plan with the resident. I have reviewed the medications and the last labs. Pt with PAD and had contrast by IR. She has CKD-3 and now has developed GILBERTO. She is on IVF. Her HTN is uncontrolled and Lebatolol is started. She is already on Amlodipine and Clonidine. Unable to give ISMAEL/ARB at this time due to GILBERTO. Unable to start diuretic therapy due to GILBERTO. Will get urine studies and work up for CKD. Will monitor I/O and get Iron studies.
[2018-05-28] MEDS ORDERED: Vancomycin 2 GM in Sodium Chloride 0.9% 500 ML IVPB ONE (07:00)
[2018-05-28 07:26] LABS: BASO # 0.07 K/mm3 (0.0-2.0); BASO % 0.6 % (0.0-3.0); EOS # 0.2 (0.0-0.7); EOS % 1.8 % (1.5-5.0); LYMPH # 1.2 (1.2-3.4); LYMPH % 10.3 % (22.0-35.0); MEAN CELL VOLUME 78.4 fl (80.0-105.0); MEAN CORPUSCULAR HEMOGLOBIN 24.9 pg (25.0-35.0); MEAN CORPUSCULAR HGB CONC 31.8 g/dl (31.0-37.0); MEAN PLATELET VOLUME 8.5 fl (7.0-11.0); MONO # 0.6 (0.1-0.6); MONO % 5.1 % (1.0-6.0); RBC 3.61 10^6/uL (3.5-6.1); RED CELL DISTRIBUTION WIDTH 15.2 % (11.5-14.5); WHITE BLOOD COUNT 11.9 10^3/uL (4.5-11.0)
--- NOTE | 2018-05-28 07:27 | CARD ---
APPROVED REPORT Date of service: 05/27/2018 EXAM: Two-dimensional and M-mode echocardiogram with Doppler and color Doppler. INDICATION Dyspnea MR 2D DIMENSIONS Left Atrium (2D)5.4 (1.6-4.0cm)IVSd1.1 (0.7-1.1cm) LVDd4.2 (3.9-5.9cm)PWd1.2 (0.7-1.1cm) LVDs2.4 (2.5-4.0cm)FS (%) 43.0 % LVEF (%)74.4 (>50%) M-Mode DIMENSIONS Aortic Root2.80 (2.2-3.7cm)Aortic Cusp Exc.1.50 (1.5-2.0cm) Aortic Valve AoV Peak Zffcqzid640.0cm/Jerod Peak GR.18mmHg Mitral Valve MV E Jqlydgew393.0cm/sMV A Zwqngjqe90.3cm/sE/A ratio3.1 TDI E/Lateral E'0.0E/Medial E'0.0 Pulmonary Valve PV Peak Shrnepnv216.0cm/sPV Peak Grad.4mmHg Tricuspid Valve TR Peak Avmumbao202au/sRAP [id number] Peak Gr.66mmHg [id number] LEFT VENTRICLE The left ventricle is normal size. There is normal left ventricular wall thickness. The left ventricular function is normal. The left ventricular ejection fraction is within the normal range. There is normal LV segmental wall motion. RIGHT VENTRICLE The right ventricle is normal size. The right ventricular systolic function is normal. ATRIA The left atrium is moderately dilated. The right atrium is moderately dilated. The interatrial septum is intact with no evidence for an atrial septal defect. AORTIC VALVE The aortic valve is mildly sclerotic. There is no aortic valvular stenosis. MITRAL VALVE The mitral valve is normal in structure. Mitral regurgitation is moderate. TRICUSPID VALVE The tricuspid valve is normal in structure. There is moderate tricuspid regurgitation. PULMONIC VALVE The pulmonary valve is normal in structure. GREAT VESSELS The aortic root is normal in size. The IVC is normal in size and collapses >50% with inspiration. PERICARDIAL EFFUSION There is no pleural effusion. There is no pericardial effusion. <Conclusion> Biatrial enlargement. Normal LV size and systolic function. Moderate MR. Moderate TR.
--- NOTE | 2018-05-28 07:27 | CP.CCUPN ---
<Ariane Hernandez - Last Filed: 05/28/18 14:24> CCU Subjective - Physician Review Subjective (Free Text): 05/28/18 07:15 Ariane Hernandez PGY1 Critical Care Progress Note Patient seen and examined at bedside this morning. No acute events overnight. Patient placed on bipap throughout night, O2 sat noted to be dropping when attempts were made to transition to ventimask. Patient started on heparin drip for subtherapeutic INR. Patient admits to left foot pain and denies all other complaints at this time including CP, SOB, nausea, vomiting, headaches, numbness, tingling and swelling. Placed on high flow oxygen this morning. Surgery of left foot planned for Friday. CCU Objective - Vital Signs / Intake & Output Vital Signs (Last 4 hours): Vital Signs BP 05/28/18 07:06 172/72 H Intake and Output (Last 8hrs): Intake & Output 05/27/18 05/28/18 05/28/18 22:59 06:59 14:59 Intake Total 70 180 Output Total 400 Balance -330 180 Intake: IV 70 180 Output: Urine 400 Urine, Voided 400 - Physical Exam Head: Positive for: Atraumatic, Normocephalic Pupils: Positive for: PERRL Extroacular Muscles: Positive for: EOMI Conjunctiva: Positive for: Normal Mouth: Positive for: Moist Mucous Membranes Neck: Positive for: Normal Range of Motion Respiratory/Chest: Positive for: Clear to Auscultation, Good Air Exchange. Negative for: Respiratory Distress, Accessory Muscle Use Cardiovascular: Positive for: Regular Rate and Rhythm, Normal S1, S2. Negative for: Murmurs Abdomen: Negative for: Tenderness, Distention, Peritoneal Signs Back: Positive for: Normal Inspection Upper Extremity: Positive for: Normal Inspection. Negative for: Cyanosis, Edema Lower Extremity: Positive for: Normal Inspection, Normal ROM, Tenderness, Other (Grangrenous left 2nd toe noted). Negative for: Edema, CALF TENDERNESS, Marek's Sign Neurological: Positive for: GCS=15, CN II-XII Intact, Speech Normal Skin: Positive for: Warm, Dry, Normal Color. Negative for: Rashes Psychiatric: Positive for: Alert, Oriented x 3, Normal Insight, Normal Concentration - Medications Active Medications: Active Medications Generic Name Dose Route Start Last Admin Trade Name Freq PRN Reason Stop Dose Admin Acetaminophen 650 mg 05/21/18 20:42 Tylenol 325mg Tab PO Q6H PRN Fever >100.4 F Amlodipine Besylate 10 mg 05/22/18 10:00 05/27/18 10:30 Norvasc PO Not Given DAILY [facility] Aspirin 81 mg 05/28/18 10:00 Aspirin Chewable PO DAILY [facility] Atorvastatin Calcium 40 mg 05/23/18 10:00 05/27/18 10:30 Lipitor PO Not Given QOTHERDAY [facility] Clonidine HCl 0.3 mg 05/22/18 10:00 05/27/18 14:00 Catapres PO 0.3 mg TID [facility] Administration Dextrose 50 ml 05/23/18 16:44 Dextrose 50% Inj IVP ONCE PRN Hypoglycemia Digoxin 0.25 mg 05/27/18 14:00 Lanoxin PO 1400 [facility] Furosemide 40 mg 05/28/18 07:00 05/28/18 07:06 Lasix IVP 40 mg Q12 [facility] Administration Glipizide 10 mg 05/22/18 10:00 05/27/18 10:00 Glucotrol PO Not Given DAILY [facility] Aztreonam 100 mls @ 100 mls/hr 05/21/18 22:00 05/28/18 07:05 Azactam 1 Gm IVPB 05/28/18 22:01 100 mls/hr Q8 [facility] Administration Protocol Nitroglycerin/Dextrose 50 mg in 250 mls @ 6 mls/hr 05/27/18 10:40 05/28/18 03:27 Nitroglycerin 50 Mg/250 Ml D5w IV 60 mcg/min .Q24H PRN 18 mls/hr Systolic Blood Pressure Administration Protocol 20 MCG/MIN Heparin Sodium/Sodium Chloride 25,000 units in 250 mls @ 10 mls/hr 05/27/18 21:12 05/28/18 00:44 Heparin 75238 Units/250ml 1/2 Normal Saline IV 10 mls/hr .Q24H PRN Administration ADJUST RATE PER PROTOCOL Protocol Vancomycin HCl 2 gm/ Sodium 500 mls @ 170 mls/hr 05/28/18 07:00 Chloride IVPB 05/28/18 09:56 ONCE ONE Protocol Insulin Human Lispro 0 units 05/21/18 22:00 05/27/18 22:26 Humalog High SC Not Given ACHS [facility] Protocol Insulin Lispro Protam/Lispro Human 10 units 05/25/18 16:30 05/27/18 07:30 Humalog Mix 75/25 SC Not Given ACBD [facility]MAN Isosorbide Mononitrate 30 mg 05/22/18 06:00 05/26/18 05:12 Imdur Er PO 30 mg 0600 [facility] Administration Levalbuterol HCl 1.25 mg 05/26/18 14:00 05/28/18 03:42 Xopenex IH Not Given [id number] [facility] Meclizine HCl 25 mg 05/21/18 20:02 Antivert PO TID PRN dizzy Metoprolol Tartrate 50 mg 05/22/18 10:00 05/27/18 18:00 Lopressor PO 50 mg TID [facility]YMAN Administration Nitroglycerin 1 ea 05/27/18 10:45 05/27/18 11:21 Nitro-Bid 2% Oint TOP Not Given Q8H [facility] Silver Sulfadiazine 0 gm 05/22/18 18:00 05/27/18 10:30 Silvadene 1% 25 Gm TP Not Given BID PEYMAN - Patient Studies Lab Studies: Lab Studies 05/28/18 05/27/18 05/27/18 Range/Units 05:56 23:00 19:00 WBC (4.5-11.0) 10^3/uL RBC (3.5-6.1) 10^6/uL Hgb (12.0-16.0) g/dL Hct (36.0-48.0) % MCV (80.0-105.0) fl MCH (25.0-35.0) pg MCHC (31.0-37.0) g/dl RDW (11.5-14.5) % Plt Count (120.0-450.0) 10^3/uL MPV (7.0-11.0) fl Neut % (Auto) (50.0-68.0) % Lymph % (Auto) (22.0-35.0) % [place] % (Auto) (1.0-6.0) % Eos % (Auto) (1.5-5.0) % Baso % (Auto) (0.0-3.0) % Lymph # (Auto) (1.2-3.4) [place] # (Auto) (0.1-0.6) Eos # (Auto) (0.0-0.7) Baso # (Auto) (0.0-2.0) K/mm3 Absolute Neuts (auto) (1.4-6.5) Neutrophils % (Manual) (50.0-70.0) % Lymphocytes % (Manual) (22.0-35.0) % Atypical Lymphs % (0.0-0.0) % Monocytes % (Manual) (1.0-6.0) % Poikilocytosis (manual Ovalocytes Mulberry Cells PT 17.1 H (9.4-12.5) SECONDS INR 1.54 APTT 35.4 (26.9-38.3) Seconds pCO2 31 L (35-45) mm/Hg pO2 73.0 L (80-100) mm/Hg HCO3 16.7 L (21-28) mmol/L ABG pH 7.34 L (7.35-7.45) ABG Total CO2 17.7 L (22-28) mmol.L ABG O2 Saturation 98.0 (95-98) % ABG O2 Content 11.7 L (15-23) ML/dl ABG Base Excess -8.2 L (-2.0-3.0) mmol/L ABG Hemoglobin 8.7 L (11.7-17.4) g/dL ABG Carboxyhemoglobin 2.6 H (0.5-1.5) % POC ABG HHb (Measured) 1.9 (0-5) % ABG Methemoglobin 0.8 (0.0-3.0) % ABG O2 Capacity 11.9 L (16-24) mL/dl Hgb O2 Saturation 94.7 L (95.0-98.0) % FiO2 40.0 % Crit Value Called To Crit Value Called By Blood Gas Notified Time Sodium (132-148) mmol/L Potassium (3.6-5.0) mmol/L Chloride (98-107) mmol/L Carbon Dioxide (21-33) mmol/L Anion Gap (10-20) BUN (7-21) mg/dL Creatinine (0.7-1.2) mg/dl Est GFR ( Amer) Est GFR (Non-Af Amer) POC Glucose (mg/dL) 159 H (65-110) mg/dL Random Glucose (70-110) mg/dL Calcium (8.4-10.5) mg/dL Phosphorus (2.5-4.5) mg/dL Magnesium (1.7-2.2) mg/dL Total Bilirubin (0.2-1.3) mg/dL AST (14-36) U/L ALT (7-56) U/L Alkaline Phosphatase (38-126) U/L Troponin I ng/mL Total Protein (5.8-8.3) g/dL Albumin (3.0-4.8) g/dL Globulin gm/dL Albumin/Globulin Ratio (1.1-1.8) Procalcitonin (0.19-0.49) NG/ML 05/27/18 05/27/18 05/27/18 Range/Units 15:37 15:37 15:37 WBC 13.7 H D (4.5-11.0) 10^3/uL RBC 3.75 (3.5-6.1) 10^6/uL Hgb 9.4 L (12.0-16.0) g/dL Hct 29.6 L (36.0-48.0) % MCV 78.9 L (80.0-105.0) fl MCH 25.1 (25.0-35.0) pg MCHC 31.8 (31.0-37.0) g/dl RDW 15.3 H (11.5-14.5) % Plt Count 311 (120.0-450.0) 10^3/uL MPV 8.8 (7.0-11.0) fl Neut % (Auto) 91.4 H (50.0-68.0) % Lymph % (Auto) 4.7 L (22.0-35.0) % [place] % (Auto) 3.0 (1.0-6.0) % Eos % (Auto) 0.4 L (1.5-5.0) % Baso % (Auto) 0.5 (0.0-3.0) % Lymph # (Auto) 0.6 L (1.2-3.4) [place] # (Auto) 0.4 (0.1-0.6) Eos # (Auto) 0.1 (0.0-0.7) Baso # (Auto) 0.07 (0.0-2.0) K/mm3 Absolute Neuts (auto) 12.54 H (1.4-6.5) Neutrophils % (Manual) 96 H (50.0-70.0) % Lymphocytes % (Manual) 1 L (22.0-35.0) % Atypical Lymphs % 1 H (0.0-0.0) % Monocytes % (Manual) 2 (1.0-6.0) % Poikilocytosis (manual Slight Ovalocytes Slight Hema Cells Slight PT (9.4-12.5) SECONDS INR APTT (26.9-38.3) Seconds pCO2 (35-45) mm/Hg pO2 (80-100) mm/Hg HCO3 (21-28) mmol/L ABG pH (7.35-7.45) ABG Total CO2 (22-28) mmol.L ABG O2 Saturation (95-98) % ABG O2 Content (15-23) ML/dl ABG Base Excess (-2.0-3.0) mmol/L ABG Hemoglobin (11.7-17.4) g/dL ABG Carboxyhemoglobin (0.5-1.5) % POC ABG HHb (Measured) (0-5) % ABG Methemoglobin (0.0-3.0) % ABG O2 Capacity (16-24) mL/dl Hgb O2 Saturation (95.0-98.0) % FiO2 % Crit Value Called To Crit Value Called By Blood Gas Notified Time Sodium 139 (132-148) mmol/L Potassium 5.3 H (3.6-5.0) mmol/L Chloride 113 H (98-107) mmol/L Carbon Dioxide 18 L (21-33) mmol/L Anion Gap 13 (10-20) BUN 34 H (7-21) mg/dL Creatinine 1.2 (0.7-1.2) mg/dl Est GFR ( Amer) 54 Est GFR (Non-Af Amer) 45 POC Glucose (mg/dL) (65-110) mg/dL Random Glucose 217 H (70-110) mg/dL Calcium 8.5 (8.4-10.5) mg/dL Phosphorus 4.1 (2.5-4.5) mg/dL Magnesium 1.7 (1.7-2.2) mg/dL Total Bilirubin 1.3 (0.2-1.3) mg/dL AST 31 (14-36) U/L ALT 27 (7-56) U/L Alkaline Phosphatase 260 H D (38-126) U/L Troponin I < 0.01 ng/mL Total Protein 7.4 (5.8-8.3) g/dL Albumin 3.5 (3.0-4.8) g/dL Globulin 3.9 gm/dL Albumin/Globulin Ratio 0.9 L (1.1-1.8) Procalcitonin 0.43 (0.19-0.49) NG/ML 05/27/18 Range/Units 13:00 WBC (4.5-11.0) 10^3/uL RBC (3.5-6.1) 10^6/uL Hgb (12.0-16.0) g/dL Hct (36.0-48.0) % MCV (80.0-105.0) fl MCH (25.0-35.0) pg MCHC (31.0-37.0) g/dl RDW (11.5-14.5) % Plt Count (120.0-450.0) 10^3/uL MPV (7.0-11.0) fl Neut % (Auto) (50.0-68.0) % Lymph % (Auto) (22.0-35.0) % [place] % (Auto) (1.0-6.0) % Eos % (Auto) (1.5-5.0) % Baso % (Auto) (0.0-3.0) % Lymph # (Auto) (1.2-3.4) [place] # (Auto) (0.1-0.6) Eos # (Auto) (0.0-0.7) Baso # (Auto) (0.0-2.0) K/mm3 Absolute Neuts (auto) (1.4-6.5) Neutrophils % (Manual) (50.0-70.0) % Lymphocytes % (Manual) (22.0-35.0) % Atypical Lymphs % (0.0-0.0) % Monocytes % (Manual) (1.0-6.0) % Poikilocytosis (manual Ovalocytes Mulberry Cells PT (9.4-12.5) SECONDS INR APTT (26.9-38.3) Seconds pCO2 35 (35-45) mm/Hg pO2 44.0 L* (80-100) mm/Hg HCO3 16.4 L (21-28) mmol/L ABG pH 7.28 L (7.35-7.45) ABG Total CO2 17.5 L (22-28) mmol.L ABG O2 Saturation 80.6 L (95-98) % ABG O2 Content 9.7 L (15-23) ML/dl ABG Base Excess -9.5 L (-2.0-3.0) mmol/L ABG Hemoglobin 8.8 L (11.7-17.4) g/dL ABG Carboxyhemoglobin 2.3 H (0.5-1.5) % POC ABG HHb (Measured) 18.8 H (0-5) % ABG Methemoglobin 1.0 (0.0-3.0) % ABG O2 Capacity 12.0 L (16-24) mL/dl Hgb O2 Saturation 77.9 L (95.0-98.0) % FiO2 28.0 % Crit Value Called To Dr rm Crit Value Called By Charlie donovan Blood Gas Notified Time 110 Sodium (132-148) mmol/L Potassium (3.6-5.0) mmol/L Chloride (98-107) mmol/L Carbon Dioxide (21-33) mmol/L Anion Gap (10-20) BUN (7-21) mg/dL Creatinine (0.7-1.2) mg/dl Est GFR ( Amer) Est GFR (Non-Af Amer) POC Glucose (mg/dL) (65-110) mg/dL Random Glucose (70-110) mg/dL Calcium (8.4-10.5) mg/dL Phosphorus (2.5-4.5) mg/dL Magnesium (1.7-2.2) mg/dL Total Bilirubin (0.2-1.3) mg/dL AST (14-36) U/L ALT (7-56) U/L Alkaline Phosphatase (38-126) U/L Troponin I ng/mL Total Protein (5.8-8.3) g/dL Albumin (3.0-4.8) g/dL Globulin gm/dL Albumin/Globulin Ratio (1.1-1.8) Procalcitonin (0.19-0.49) NG/ML Laboratory Results - last 24 hr 05/27/18 05/27/18 05/27/18 13:00 15:37 15:37 WBC 13.7 H D RBC 3.75 Hgb 9.4 L Hct 29.6 L MCV 78.9 L MCH 25.1 MCHC 31.8 RDW 15.3 H Plt Count 311 MPV 8.8 Neut % (Auto) 91.4 H Lymph % (Auto) 4.7 L [place] % (Auto) 3.0 Eos % (Auto) 0.4 L Baso % (Auto) 0.5 Lymph # (Auto) 0.6 L [place] # (Auto) 0.4 Eos # (Auto) 0.1 Baso # (Auto) 0.07 Absolute Neuts (auto) 12.54 H Neutrophils % (Manual) 96 H Lymphocytes % (Manual) 1 L Atypical Lymphs % 1 H Monocytes % (Manual) 2 Poikilocytosis (manual Slight Ovalocytes Slight Hema Cells Slight PT INR APTT pCO2 35 pO2 44.0 L* HCO3 16.4 L ABG pH 7.28 L ABG Total CO2 17.5 L ABG O2 Saturation 80.6 L ABG O2 Content 9.7 L ABG Base Excess -9.5 L ABG Hemoglobin 8.8 L ABG Carboxyhemoglobin 2.3 H POC ABG HHb (Measured) 18.8 H ABG Methemoglobin 1.0 ABG O2 Capacity 12.0 L Hgb O2 Saturation 77.9 L FiO2 28.0 Crit Value Called To Dr rm Crit Value Called By Charlie donovan Blood Gas Notified Time 110 Sodium 139 Potassium 5.3 H Chloride 113 H Carbon Dioxide 18 L Anion Gap 13 BUN 34 H Creatinine 1.2 Est GFR ( Amer) 54 Est GFR (Non-Af Amer) 45 POC Glucose (mg/dL) Random Glucose 217 H Calcium 8.5 Phosphorus 4.1 Magnesium 1.7 Total Bilirubin 1.3 AST 31 ALT 27 Alkaline Phosphatase 260 H D Troponin I < 0.01 Total Protein 7.4 Albumin 3.5 Globulin 3.9 Albumin/Globulin Ratio 0.9 L Procalcitonin 05/27/18 05/27/18 05/27/18 15:37 19:00 23:00 WBC RBC Hgb Hct MCV MCH MCHC RDW Plt Count MPV Neut % (Auto) Lymph % (Auto) [place] % (Auto) Eos % (Auto) Baso % (Auto) Lymph # (Auto) [place] # (Auto) Eos # (Auto) Baso # (Auto) Absolute Neuts (auto) Neutrophils % (Manual) Lymphocytes % (Manual) Atypical Lymphs % Monocytes % (Manual) Poikilocytosis (manual Ovalocytes Mulberry Cells PT 17.1 H INR 1.54 APTT 35.4 pCO2 31 L pO2 73.0 L HCO3 16.7 L ABG pH 7.34 L ABG Total CO2 17.7 L ABG O2 Saturation 98.0 ABG O2 Content 11.7 L ABG Base Excess -8.2 L ABG Hemoglobin 8.7 L ABG Carboxyhemoglobin 2.6 H POC ABG HHb (Measured) 1.9 ABG Methemoglobin 0.8 ABG O2 Capacity 11.9 L Hgb O2 Saturation 94.7 L FiO2 40.0 Crit Value Called To Crit Value Called By Blood Gas Notified Time Sodium Potassium Chloride Carbon Dioxide Anion Gap BUN Creatinine Est GFR ( Amer) Est GFR (Non-Af Amer) POC Glucose (mg/dL) Random Glucose Calcium Phosphorus Magnesium Total Bilirubin AST ALT Alkaline Phosphatase Troponin I Total Protein Albumin Globulin Albumin/Globulin Ratio Procalcitonin 0.43 05/28/18 05:56 WBC RBC Hgb Hct MCV MCH MCHC RDW Plt Count MPV Neut % (Auto) Lymph % (Auto) [place] % (Auto) Eos % (Auto) Baso % (Auto) Lymph # (Auto) [place] # (Auto) Eos # (Auto) Baso # (Auto) Absolute Neuts (auto) Neutrophils % (Manual) Lymphocytes % (Manual) Atypical Lymphs % Monocytes % (Manual) Poikilocytosis (manual Ovalocytes Mulberry Cells PT INR APTT pCO2 pO2 HCO3 ABG pH ABG Total CO2 ABG O2 Saturation ABG O2 Content ABG Base Excess ABG Hemoglobin ABG Carboxyhemoglobin POC ABG HHb (Measured) ABG Methemoglobin ABG O2 Capacity Hgb O2 Saturation FiO2 Crit Value Called To Crit Value Called By Blood Gas Notified Time Sodium Potassium Chloride Carbon Dioxide Anion Gap BUN Creatinine Est GFR ( Amer) Est GFR (Non-Af Amer) POC Glucose (mg/dL) 159 H Random Glucose Calcium Phosphorus Magnesium Total Bilirubin AST ALT Alkaline Phosphatase Troponin I Total Protein Albumin Globulin Albumin/Globulin Ratio Procalcitonin Radiology Impressions: Radiology Impressions Interventional Vascular Procedure 05/27/18 08:30 IMPRESSION: 1.Successful distal left SFA and popliteal artery jet stream atherectomy and drug-eluting balloon angioplasty 2. Jet stream atherectomy and angioplasty of the left anterior tibial artery origin 3. 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 Multiple stenoses in the right popliteal artery below the knee. Chest X-Ray 05/27/18 08:47 IMPRESSION: Cardiomegaly, CHF/pulmonary edema acute and progressive findings compared to the prior study. Chest X-Ray 05/27/18 12:44 IMPRESSION: Mild increase in pulmonary vascular congestion suspected. Underlying airspace disease not excluded bilaterally. Mild right greater than left pleural effusions persist. EKG/Cardiology Studies: Cardiology / EKG Studies 05/27/18 08:04 ELECTROCARDIOGRAM Stat Comment: STAT Reason For Exam: SOB PRE OP:: Y Does Patient Have a Pacemaker?: No 05/27/18 14:50 EKG [ELECTROCARDIOGRAM] Stat Comment: Reason For Exam: chf Fingerstick Blood Sugar Results: 207 Critical Care Progress Note - Nutrition Nutrition: Nutrition Category Date Time Status NPO Diet [DIET] Diets 05/27/18 Dinner Ordered Assessment/Plan - Assessment and Plan (Free Text) Assessment: This is a 67 year old female with PMH of DM, HTN, HLD, afib on coumadin, CVA in 2013, CAD and PVD was admitted to the hospital on 05/21/18 for left foot second digit gangrene. ICU consulted after patient developed SOB postoperatively from left leg angiogram. Patient admitted for hypoxic respiratory failure complicated by hypertensive emergency in the setting of cardiogenic pulmonary edema and diastolic heart failure. Will continue with BIPAP, preload reduction with lasix and afterload reduction with amlodipine and clonidine. Started on heparin drip for subtherapeutic INR. Currently on high flow oxygen. Surgery of left foot planned for Friday. Plan: Neuro: -maintain normothermia -AAO x3, moving extremities spontaneously past midline Cardio: Hx of afib on coumain -subtherapeutic INR, started on heparin drip overnight -maintain MAP>65 Hypertensive emergency -troponin 05/27/18 <0.01 -echo 05/27 shows biatrial enlargement, moderate MR, TR and EF of 74% -currently on nitroglycerin drip -on norvasc 10mg, lopressor 50mg BID, imdur 30mg, 0.25mg digoxin -Cardio on consult, Dr. Coronado Lungs: Hypoxic respiratory failure -continue BIPAP, high flow oxygen -SaO2 >90% -supplementary O2 PRN, bipap -CXR 05/27 shows right sided vascular congestion, -CXR 05/28 shows no interval change in pulmonary vascular congestion, mild right pleural effusion -xopenex q6 ID: -afebrile, WBC uptrending today -Lower extremity GORAN on 05/22 revealed severely abnormal GORAN at rest limited by multiple areas of calcification, Left SFA occlusive disease and B/L tibial occlusive disease. -LE MRI on 05/24 showed findings suggestive of acute osteomyelitis involving distal phalanx of second toe. -s/p left leg angiography on 05/27, possible left foot second digit amputation -blood culture negative after 5 days . Repeat urine/blood cx pending -procalc pending -day 8 aztreonam -ID on consult, Dr. Aguilar -Surgery on consult, Dr Morrell -Podiatry on consult, Dr. Moss -IR on consult, Dr. Marrufo Renal: -maintain euvolemia -avoid nephrotoxic agents, hypochloremia -replace electrolytes as needed -ABG 05/27 reads pH 7.28, pCO2 35, O2 44, bicarb of 16.4; metabolic acidosis -ABG today pending -Nephro on consult, Dr. Watkins -BUN/Cr elevated today Heme: -subtherapeutic INR, started on heparin drip overnight Endo: -maintain euglycemia -on insulin ACHS, humalog mix 10 units ACBD GI: -diabetic diet, Surgery of left foot planned for 06/01/18 Patient seen and case discussed with attending, Dr. Rm <Bello Rm - Last Filed: 05/28/18 15:21> CCU Objective - Vital Signs / Intake & Output Vital Signs (Last 4 hours): Vital Signs Temp Pulse Resp BP Pulse Ox 05/28/18 14:18 83 164/55 H 05/28/18 14:17 88 164/55 H 05/28/18 14:00 91 H 22 164/55 H 96 05/28/18 13:00 86 16 153/54 H 99 05/28/18 12:55 20 05/28/18 12:54 86 25 H 156/55 H 95 05/28/18 12:00 98 F 89 19 184/80 H 95 05/28/18 11:30 96 H 24 177/67 H 94 L Intake and Output (Last 8hrs): Intake & Output 05/28/18 05/28/18 05/28/18 06:59 14:59 22:59 Intake Total 180 250 Balance 180 250 Intake: IV 180 250 - Medications Active Medications: Active Medications Generic Name Dose Route Start Last Admin Trade Name Freq PRN Reason Stop Dose Admin Acetaminophen 650 mg 05/21/18 20:42 Tylenol 325mg Tab PO Q6H PRN Fever >100.4 F Amlodipine Besylate 10 mg 05/22/18 10:00 05/28/18 09:00 Norvasc PO 10 mg DAILY [facility]YMAN Administration Aspirin 81 mg 05/28/18 10:00 05/28/18 09:17 Aspirin Chewable PO 81 mg DAILY [facility] Administration Atorvastatin Calcium 40 mg 05/23/18 10:00 05/27/18 10:30 Lipitor PO Not Given QOTHERDAY [facility] Clonidine HCl 0.3 mg 05/22/18 10:00 05/28/18 14:17 Catapres PO 0.3 mg TID PEYMAN Administration Dextrose 50 ml 05/23/18 16:44 Dextrose 50% Inj IVP ONCE PRN Hypoglycemia Digoxin 0.25 mg 05/27/18 14:00 05/28/18 14:18 Lanoxin PO 0.25 mg 1400 PEYMAN Administration Glipizide 10 mg 05/22/18 10:00 05/27/18 10:00 Glucotrol PO Not Given DAILY [facility] Aztreonam 100 mls @ 100 mls/hr 05/21/18 22:00 05/28/18 14:17 Azactam 1 Gm IVPB 05/28/18 22:01 100 mls/hr Q8 [facility]YMAN Administration Protocol Nitroglycerin/Dextrose 50 mg in 250 mls @ 6 mls/hr 05/27/18 10:40 05/28/18 11:45 Nitroglycerin 50 Mg/250 Ml D5w IV 60 mcg/min .Q24H PRN 18 mls/hr Systolic Blood Pressure Administration Protocol 20 MCG/MIN Heparin Sodium/Sodium Chloride 25,000 units in 250 mls @ 10 mls/hr 05/27/18 21:12 05/28/18 00:44 Heparin 26946 Units/250ml 1/2 Normal Saline IV 10 mls/hr .Q24H PRN Administration ADJUST RATE PER PROTOCOL Protocol Insulin Human Lispro 0 units 05/21/18 22:00 05/28/18 11:43 Humalog High SC Not Given ACHS [facility] Protocol Insulin Lispro Protam/Lispro Human 10 units 05/25/18 16:30 05/28/18 09:22 Humalog Mix 75/25 SC 10 u ACBD PEYMAN Administration Isosorbide Mononitrate 30 mg 05/22/18 06:00 05/28/18 09:17 Imdur Er PO 30 mg 0600 PEYMAN Administration Labetalol HCl 100 mg 05/28/18 10:00 05/28/18 09:21 Trandate PO 100 mg BID [facility] Administration Levalbuterol HCl 1.25 mg 05/26/18 14:00 05/28/18 13:00 Xopenex IH 1.25 mg [id number] [facility] Administration Meclizine HCl 25 mg 05/21/18 20:02 Antivert PO TID PRN dizzy Metoprolol Tartrate 50 mg 05/28/18 13:30 05/28/18 14:18 Lopressor PO 50 mg Q12H [facility] Administration Nitroglycerin 1 ea 05/27/18 10:45 05/27/18 11:21 Nitro-Bid 2% Oint TOP Not Given Q8H [facility] Silver Sulfadiazine 0 gm 05/22/18 18:00 05/27/18 10:30 Silvadene 1% 25 Gm TP Not Given BID [facility] - Patient Studies Lab Studies: Lab Studies 05/28/18 05/28/18 05/28/18 Range/Units 10:59 10:15 10:15 WBC (4.5-11.0) 10^3/uL RBC (3.5-6.1) 10^6/uL Hgb (12.0-16.0) g/dL Hct (36.0-48.0) % MCV (80.0-105.0) fl MCH (25.0-35.0) pg MCHC (31.0-37.0) g/dl RDW (11.5-14.5) % Plt Count (120.0-450.0) 10^3/uL MPV (7.0-11.0) fl Neut % (Auto) (50.0-68.0) % Lymph % (Auto) (22.0-35.0) % [place] % (Auto) (1.0-6.0) % Eos % (Auto) (1.5-5.0) % Baso % (Auto) (0.0-3.0) % Lymph # (Auto) (1.2-3.4) [place] # (Auto) (0.1-0.6) Eos # (Auto) (0.0-0.7) Baso # (Auto) (0.0-2.0) K/mm3 Absolute Neuts (auto) (1.4-6.5) Neutrophils % (Manual) (50.0-70.0) % Lymphocytes % (Manual) (22.0-35.0) % Atypical Lymphs % (0.0-0.0) % Monocytes % (Manual) (1.0-6.0) % Poikilocytosis (manual Ovalocytes Hema Cells Retic Count (0.5-1.5) % PT (9.4-12.5) SECONDS INR APTT (26.9-38.3) Seconds pCO2 (35-45) mm/Hg pO2 (80-100) mm/Hg HCO3 (21-28) mmol/L ABG pH (7.35-7.45) ABG Total CO2 (22-28) mmol.L ABG O2 Saturation (95-98) % ABG O2 Content (15-23) ML/dl ABG Base Excess (-2.0-3.0) mmol/L ABG Hemoglobin (11.7-17.4) g/dL ABG Carboxyhemoglobin (0.5-1.5) % POC ABG HHb (Measured) (0-5) % ABG Methemoglobin (0.0-3.0) % ABG O2 Capacity (16-24) mL/dl Hgb O2 Saturation (95.0-98.0) % FiO2 % Sodium (132-148) mmol/L Potassium (3.6-5.0) mmol/L Chloride (98-107) mmol/L Carbon Dioxide (21-33) mmol/L Anion Gap (10-20) BUN (7-21) mg/dL Creatinine (0.7-1.2) mg/dl Est GFR ( Amer) Est GFR (Non-Af Amer) POC Glucose (mg/dL) 149 H (65-110) mg/dL Random Glucose (70-110) mg/dL Calcium (8.4-10.5) mg/dL Phosphorus (2.5-4.5) mg/dL Magnesium (1.7-2.2) mg/dL Iron (45-180) ug/dL TIBC (265-497) ug/dL % Saturation (20-55) % Transferrin (206-381) mg/dL Ferritin ng/mL Total Bilirubin (0.2-1.3) mg/dL AST (14-36) U/L ALT (7-56) U/L Alkaline Phosphatase (38-126) U/L Troponin I ng/mL Total Protein (5.8-8.3) g/dL Albumin (3.0-4.8) g/dL Globulin gm/dL Albumin/Globulin Ratio (1.1-1.8) 25-OH Vitamin D Total (30.0-100.0) NG/ML Procalcitonin (0.19-0.49) NG/ML Urine Color Yellow (YELLOW) Urine Appearance Clear (CLEAR) Urine pH 5.0 (4.7-8.0) Ur Specific [place] 1.020 (1.005-1.035) Urine Protein 30 H (<30 mg/dL) mg/dL Urine Glucose (UA) Negative (NEGATIVE) mg/dL Urine Ketones Negative (NEGATIVE) mg/dL Urine Blood Trace-lysed H (NEGATIVE) Urine Nitrate Negative (NEGATIVE) Urine Bilirubin Negative (NEGATIVE) Urine Urobilinogen 0.2 (<1 E.U./dL) E.U./dL Ur Leukocyte Esterase Trace H (NEGATIVE) [place]/uL Urine RBC 2 - 5 H (0-2) /hpf Urine WBC 5 - 10 H (0-6) /hpf Ur Epithelial Cells 4 - 5 (0-5) /hpf Urine Bacteria Mod (NONE) /hpf Urine Eosinophils Ur Random Creatinine mg/dL U Random Total Protein 55 Ur Random Urea Nitrogn mg/dL 05/28/18 05/28/18 05/28/18 Range/Units 10:15 10:15 10:15 WBC (4.5-11.0) 10^3/uL RBC (3.5-6.1) 10^6/uL Hgb (12.0-16.0) g/dL Hct (36.0-48.0) % MCV (80.0-105.0) fl MCH (25.0-35.0) pg MCHC (31.0-37.0) g/dl RDW (11.5-14.5) % Plt Count (120.0-450.0) 10^3/uL MPV (7.0-11.0) fl Neut % (Auto) (50.0-68.0) % Lymph % (Auto) (22.0-35.0) % [place] % (Auto) (1.0-6.0) % Eos % (Auto) (1.5-5.0) % Baso % (Auto) (0.0-3.0) % Lymph # (Auto) (1.2-3.4) [place] # (Auto) (0.1-0.6) Eos # (Auto) (0.0-0.7) Baso # (Auto) (0.0-2.0) K/mm3 Absolute Neuts (auto) (1.4-6.5) Neutrophils % (Manual) (50.0-70.0) % Lymphocytes % (Manual) (22.0-35.0) % Atypical Lymphs % (0.0-0.0) % Monocytes % (Manual) (1.0-6.0) % Poikilocytosis (manual Ovalocytes [place] Cells Retic Count (0.5-1.5) % PT (9.4-12.5) SECONDS INR APTT (26.9-38.3) Seconds pCO2 (35-45) mm/Hg pO2 (80-100) mm/Hg HCO3 (21-28) mmol/L ABG pH (7.35-7.45) ABG Total CO2 (22-28) mmol.L ABG O2 Saturation (95-98) % ABG O2 Content (15-23) ML/dl ABG Base Excess (-2.0-3.0) mmol/L ABG Hemoglobin (11.7-17.4) g/dL ABG Carboxyhemoglobin (0.5-1.5) % POC ABG HHb (Measured) (0-5) % ABG Methemoglobin (0.0-3.0) % ABG O2 Capacity (16-24) mL/dl Hgb O2 Saturation (95.0-98.0) % FiO2 % Sodium (132-148) mmol/L Potassium (3.6-5.0) mmol/L Chloride (98-107) mmol/L Carbon Dioxide (21-33) mmol/L Anion Gap (10-20) BUN (7-21) mg/dL Creatinine (0.7-1.2) mg/dl Est GFR ( Amer) Est GFR (Non-Af Amer) POC Glucose (mg/dL) (65-110) mg/dL Random Glucose (70-110) mg/dL Calcium (8.4-10.5) mg/dL Phosphorus (2.5-4.5) mg/dL Magnesium (1.7-2.2) mg/dL Iron (45-180) ug/dL TIBC (265-497) ug/dL % Saturation (20-55) % Transferrin (206-381) mg/dL Ferritin ng/mL Total Bilirubin (0.2-1.3) mg/dL AST (14-36) U/L ALT (7-56) U/L Alkaline Phosphatase (38-126) U/L Troponin I ng/mL Total Protein (5.8-8.3) g/dL Albumin (3.0-4.8) g/dL Globulin gm/dL Albumin/Globulin Ratio (1.1-1.8) 25-OH Vitamin D Total (30.0-100.0) NG/ML Procalcitonin (0.19-0.49) NG/ML Urine Color (YELLOW) Urine Appearance (CLEAR) Urine pH (4.7-8.0) Ur Specific [place] (1.005-1.035) Urine Protein (<30 mg/dL) mg/dL Urine Glucose (UA) (NEGATIVE) mg/dL Urine Ketones (NEGATIVE) mg/dL Urine Blood (NEGATIVE) Urine Nitrate (NEGATIVE) Urine Bilirubin (NEGATIVE) Urine Urobilinogen (<1 E.U./dL) E.U./dL Ur Leukocyte Esterase (NEGATIVE) Gracy/uL Urine RBC (0-2) /hpf Urine WBC (0-6) /hpf Ur Epithelial Cells (0-5) /hpf Urine Bacteria (NONE) /hpf Urine Eosinophils Negative Ur Random Creatinine 58 mg/dL U Random Total Protein Cancelled Ur Random Urea Nitrogn 312 mg/dL 05/28/18 05/28/18 05/28/18 Range/Units 08:40 08:40 08:40 WBC (4.5-11.0) 10^3/uL RBC (3.5-6.1) 10^6/uL Hgb (12.0-16.0) g/dL Hct (36.0-48.0) % MCV (80.0-105.0) fl MCH (25.0-35.0) pg MCHC (31.0-37.0) g/dl RDW (11.5-14.5) % Plt Count (120.0-450.0) 10^3/uL MPV (7.0-11.0) fl Neut % (Auto) (50.0-68.0) % Lymph % (Auto) (22.0-35.0) % [place] % (Auto) (1.0-6.0) % Eos % (Auto) (1.5-5.0) % Baso % (Auto) (0.0-3.0) % Lymph # (Auto) (1.2-3.4) [place] # (Auto) (0.1-0.6) Eos # (Auto) (0.0-0.7) Baso # (Auto) (0.0-2.0) K/mm3 Absolute Neuts (auto) (1.4-6.5) Neutrophils % (Manual) (50.0-70.0) % Lymphocytes % (Manual) (22.0-35.0) % Atypical Lymphs % (0.0-0.0) % Monocytes % (Manual) (1.0-6.0) % Poikilocytosis (manual Ovalocytes Hema Cells Retic Count (0.5-1.5) % PT (9.4-12.5) SECONDS INR APTT (26.9-38.3) Seconds pCO2 (35-45) mm/Hg pO2 (80-100) mm/Hg HCO3 (21-28) mmol/L ABG pH (7.35-7.45) ABG Total CO2 (22-28) mmol.L ABG O2 Saturation (95-98) % ABG O2 Content (15-23) ML/dl ABG Base Excess (-2.0-3.0) mmol/L ABG Hemoglobin (11.7-17.4) g/dL ABG Carboxyhemoglobin (0.5-1.5) % POC ABG HHb (Measured) (0-5) % ABG Methemoglobin (0.0-3.0) % ABG O2 Capacity (16-24) mL/dl Hgb O2 Saturation (95.0-98.0) % FiO2 % Sodium (132-148) mmol/L Potassium (3.6-5.0) mmol/L Chloride (98-107) mmol/L Carbon Dioxide (21-33) mmol/L Anion Gap (10-20) BUN (7-21) mg/dL Creatinine (0.7-1.2) mg/dl Est GFR ( Amer) Est GFR (Non-Af Amer) POC Glucose (mg/dL) (65-110) mg/dL Random Glucose (70-110) mg/dL Calcium (8.4-10.5) mg/dL Phosphorus (2.5-4.5) mg/dL Magnesium (1.7-2.2) mg/dL Iron 40 L (45-180) ug/dL TIBC 267 (265-497) ug/dL % Saturation 15 L (20-55) % Transferrin 198.75 L (206-381) mg/dL Ferritin ng/mL Total Bilirubin (0.2-1.3) mg/dL AST (14-36) U/L ALT (7-56) U/L Alkaline Phosphatase (38-126) U/L Troponin I ng/mL Total Protein (5.8-8.3) g/dL Albumin (3.0-4.8) g/dL Globulin gm/dL Albumin/Globulin Ratio (1.1-1.8) 25-OH Vitamin D Total 45.3 (30.0-100.0) NG/ML Procalcitonin (0.19-0.49) NG/ML Urine Color (YELLOW) Urine Appearance (CLEAR) Urine pH (4.7-8.0) Ur Specific [place] (1.005-1.035) Urine Protein (<30 mg/dL) mg/dL Urine Glucose (UA) (NEGATIVE) mg/dL Urine Ketones (NEGATIVE) mg/dL Urine Blood (NEGATIVE) Urine Nitrate (NEGATIVE) Urine Bilirubin (NEGATIVE) Urine Urobilinogen (<1 E.U./dL) E.U./dL Ur Leukocyte Esterase (NEGATIVE) Gracy/uL Urine RBC (0-2) /hpf Urine WBC (0-6) /hpf Ur Epithelial Cells (0-5) /hpf Urine Bacteria (NONE) /hpf Urine Eosinophils Ur Random Creatinine mg/dL U Random Total Protein Ur Random Urea Nitrogn mg/dL 05/28/18 05/28/18 05/28/18 Range/Units 08:40 08:40 07:45 WBC 12.2 H (4.5-11.0) 10^3/uL RBC 3.65 (3.5-6.1) 10^6/uL Hgb 9.0 L (12.0-16.0) g/dL Hct 28.6 L (36.0-48.0) % MCV 78.4 L (80.0-105.0) fl MCH 24.7 L (25.0-35.0) pg MCHC 31.5 (31.0-37.0) g/dl RDW 15.2 H (11.5-14.5) % Plt Count 289 (120.0-450.0) 10^3/uL MPV 8.5 (7.0-11.0) fl Neut % (Auto) 83.8 H (50.0-68.0) % Lymph % (Auto) 10.6 L (22.0-35.0) % [place] % (Auto) 3.3 (1.0-6.0) % Eos % (Auto) 1.6 (1.5-5.0) % Baso % (Auto) 0.7 (0.0-3.0) % Lymph # (Auto) 1.3 (1.2-3.4) [place] # (Auto) 0.4 (0.1-0.6) Eos # (Auto) 0.2 (0.0-0.7) Baso # (Auto) 0.08 (0.0-2.0) K/mm3 Absolute Neuts (auto) 10.20 H (1.4-6.5) Neutrophils % (Manual) (50.0-70.0) % Lymphocytes % (Manual) (22.0-35.0) % Atypical Lymphs % (0.0-0.0) % Monocytes % (Manual) (1.0-6.0) % Poikilocytosis (manual Ovalocytes Hema Cells Retic Count 2.32 H (0.5-1.5) % PT (9.4-12.5) SECONDS INR APTT (26.9-38.3) Seconds pCO2 (35-45) mm/Hg pO2 (80-100) mm/Hg HCO3 (21-28) mmol/L ABG pH (7.35-7.45) ABG Total CO2 (22-28) mmol.L ABG O2 Saturation (95-98) % ABG O2 Content (15-23) ML/dl ABG Base Excess (-2.0-3.0) mmol/L ABG Hemoglobin (11.7-17.4) g/dL ABG Carboxyhemoglobin (0.5-1.5) % POC ABG HHb (Measured) (0-5) % ABG Methemoglobin (0.0-3.0) % ABG O2 Capacity (16-24) mL/dl Hgb O2 Saturation (95.0-98.0) % FiO2 % Sodium 141 (132-148) mmol/L Potassium 4.7 (3.6-5.0) mmol/L Chloride 114 H (98-107) mmol/L Carbon Dioxide 20 L (21-33) mmol/L Anion Gap 11 (10-20) BUN 35 H (7-21) mg/dL Creatinine 1.6 H (0.7-1.2) mg/dl Est GFR ( Amer) 39 Est GFR (Non-Af Amer) 32 POC Glucose (mg/dL) 152 H (65-110) mg/dL Random Glucose 167 H (70-110) mg/dL Calcium 8.6 (8.4-10.5) mg/dL Phosphorus (2.5-4.5) mg/dL Magnesium (1.7-2.2) mg/dL Iron (45-180) ug/dL TIBC (265-497) ug/dL % Saturation (20-55) % Transferrin (206-381) mg/dL Ferritin 83.0 ng/mL Total Bilirubin (0.2-1.3) mg/dL AST (14-36) U/L ALT (7-56) U/L Alkaline Phosphatase (38-126) U/L Troponin I 0.02 D ng/mL Total Protein (5.8-8.3) g/dL Albumin (3.0-4.8) g/dL Globulin gm/dL Albumin/Globulin Ratio (1.1-1.8) 25-OH Vitamin D Total (30.0-100.0) NG/ML Procalcitonin (0.19-0.49) NG/ML Urine Color (YELLOW) Urine Appearance (CLEAR) Urine pH (4.7-8.0) Ur Specific [place] (1.005-1.035) Urine Protein (<30 mg/dL) mg/dL Urine Glucose (UA) (NEGATIVE) mg/dL Urine Ketones (NEGATIVE) mg/dL Urine Blood (NEGATIVE) Urine Nitrate (NEGATIVE) Urine Bilirubin (NEGATIVE) Urine Urobilinogen (<1 E.U./dL) E.U./dL Ur Leukocyte Esterase (NEGATIVE) Gracy/uL Urine RBC (0-2) /hpf Urine WBC (0-6) /hpf Ur Epithelial Cells (0-5) /hpf Urine Bacteria (NONE) /hpf Urine Eosinophils Ur Random Creatinine mg/dL U Random Total Protein Ur Random Urea Nitrogn mg/dL 05/28/18 05/28/18 05/28/18 Range/Units 06:50 06:50 06:50 WBC 11.9 H (4.5-11.0) 10^3/uL RBC 3.61 (3.5-6.1) 10^6/uL Hgb 9.0 L (12.0-16.0) g/dL Hct 28.3 L (36.0-48.0) % MCV 78.4 L (80.0-105.0) fl MCH 24.9 L (25.0-35.0) pg MCHC 31.8 (31.0-37.0) g/dl RDW 15.2 H (11.5-14.5) % Plt Count 298 (120.0-450.0) 10^3/uL MPV 8.5 (7.0-11.0) fl Neut % (Auto) 82.2 H (50.0-68.0) % Lymph % (Auto) 10.3 L (22.0-35.0) % [place] % (Auto) 5.1 (1.0-6.0) % Eos % (Auto) 1.8 (1.5-5.0) % Baso % (Auto) 0.6 (0.0-3.0) % Lymph # (Auto) 1.2 (1.2-3.4) [place] # (Auto) 0.6 (0.1-0.6) Eos # (Auto) 0.2 (0.0-0.7) Baso # (Auto) 0.07 (0.0-2.0) K/mm3 Absolute Neuts (auto) 9.79 H (1.4-6.5) Neutrophils % (Manual) (50.0-70.0) % Lymphocytes % (Manual) (22.0-35.0) % Atypical Lymphs % (0.0-0.0) % Monocytes % (Manual) (1.0-6.0) % Poikilocytosis (manual Ovalocytes [place] Cells Retic Count (0.5-1.5) % PT 17.3 H (9.4-12.5) SECONDS INR 1.53 APTT 47.2 H (26.9-38.3) Seconds pCO2 (35-45) mm/Hg pO2 (80-100) mm/Hg HCO3 (21-28) mmol/L ABG pH (7.35-7.45) ABG Total CO2 (22-28) mmol.L ABG O2 Saturation (95-98) % ABG O2 Content (15-23) ML/dl ABG Base Excess (-2.0-3.0) mmol/L ABG Hemoglobin (11.7-17.4) g/dL ABG Carboxyhemoglobin (0.5-1.5) % POC ABG HHb (Measured) (0-5) % ABG Methemoglobin (0.0-3.0) % ABG O2 Capacity (16-24) mL/dl Hgb O2 Saturation (95.0-98.0) % FiO2 % Sodium (132-148) mmol/L Potassium (3.6-5.0) mmol/L Chloride (98-107) mmol/L Carbon Dioxide (21-33) mmol/L Anion Gap (10-20) BUN (7-21) mg/dL Creatinine (0.7-1.2) mg/dl Est GFR ( Amer) Est GFR (Non-Af Amer) POC Glucose (mg/dL) (65-110) mg/dL Random Glucose (70-110) mg/dL Calcium (8.4-10.5) mg/dL Phosphorus (2.5-4.5) mg/dL Magnesium (1.7-2.2) mg/dL Iron (45-180) ug/dL TIBC (265-497) ug/dL % Saturation (20-55) % Transferrin (206-381) mg/dL Ferritin ng/mL Total Bilirubin (0.2-1.3) mg/dL AST (14-36) U/L ALT (7-56) U/L Alkaline Phosphatase (38-126) U/L Troponin I ng/mL Total Protein (5.8-8.3) g/dL Albumin (3.0-4.8) g/dL Globulin gm/dL Albumin/Globulin Ratio (1.1-1.8) 25-OH Vitamin D Total (30.0-100.0) NG/ML Procalcitonin (0.19-0.49) NG/ML Urine Color (YELLOW) Urine Appearance (CLEAR) Urine pH (4.7-8.0) Ur Specific [place] (1.005-1.035) Urine Protein (<30 mg/dL) mg/dL Urine Glucose (UA) (NEGATIVE) mg/dL Urine Ketones (NEGATIVE) mg/dL Urine Blood (NEGATIVE) Urine Nitrate (NEGATIVE) Urine Bilirubin (NEGATIVE) Urine Urobilinogen (<1 E.U./dL) E.U./dL Ur Leukocyte Esterase (NEGATIVE) Gracy/uL Urine RBC (0-2) /hpf Urine WBC (0-6) /hpf Ur Epithelial Cells (0-5) /hpf Urine Bacteria (NONE) /hpf Urine Eosinophils Ur Random Creatinine mg/dL U Random Total Protein Ur Random Urea Nitrogn mg/dL 05/28/18 05/28/18 05/27/18 Range/Units 06:50 05:56 23:00 WBC (4.5-11.0) 10^3/uL RBC (3.5-6.1) 10^6/uL Hgb (12.0-16.0) g/dL Hct (36.0-48.0) % MCV (80.0-105.0) fl MCH (25.0-35.0) pg MCHC (31.0-37.0) g/dl RDW (11.5-14.5) % Plt Count (120.0-450.0) 10^3/uL MPV (7.0-11.0) fl Neut % (Auto) (50.0-68.0) % Lymph % (Auto) (22.0-35.0) % [place] % (Auto) (1.0-6.0) % Eos % (Auto) (1.5-5.0) % Baso % (Auto) (0.0-3.0) % Lymph # (Auto) (1.2-3.4) [place] # (Auto) (0.1-0.6) Eos # (Auto) (0.0-0.7) Baso # (Auto) (0.0-2.0) K/mm3 Absolute Neuts (auto) (1.4-6.5) Neutrophils % (Manual) (50.0-70.0) % Lymphocytes % (Manual) (22.0-35.0) % Atypical Lymphs % (0.0-0.0) % Monocytes % (Manual) (1.0-6.0) % Poikilocytosis (manual Ovalocytes Hema Cells Retic Count (0.5-1.5) % PT (9.4-12.5) SECONDS INR APTT (26.9-38.3) Seconds pCO2 31 L (35-45) mm/Hg pO2 73.0 L (80-100) mm/Hg HCO3 16.7 L (21-28) mmol/L ABG pH 7.34 L (7.35-7.45) ABG Total CO2 17.7 L (22-28) mmol.L ABG O2 Saturation 98.0 (95-98) % ABG O2 Content 11.7 L (15-23) ML/dl ABG Base Excess -8.2 L (-2.0-3.0) mmol/L ABG Hemoglobin 8.7 L (11.7-17.4) g/dL ABG Carboxyhemoglobin 2.6 H (0.5-1.5) % POC ABG HHb (Measured) 1.9 (0-5) % ABG Methemoglobin 0.8 (0.0-3.0) % ABG O2 Capacity 11.9 L (16-24) mL/dl Hgb O2 Saturation 94.7 L (95.0-98.0) % FiO2 40.0 % Sodium 143 (132-148) mmol/L Potassium 4.6 (3.6-5.0) mmol/L Chloride 114 H (98-107) mmol/L Carbon Dioxide 20 L (21-33) mmol/L Anion Gap 13 (10-20) BUN 35 H (7-21) mg/dL Creatinine 1.5 H (0.7-1.2) mg/dl Est GFR ( Amer) 42 Est GFR (Non-Af Amer) 35 POC Glucose (mg/dL) 159 H (65-110) mg/dL Random Glucose 152 H (70-110) mg/dL Calcium 8.7 (8.4-10.5) mg/dL Phosphorus 3.9 (2.5-4.5) mg/dL Magnesium 1.8 (1.7-2.2) mg/dL Iron (45-180) ug/dL TIBC (265-497) ug/dL % Saturation (20-55) % Transferrin (206-381) mg/dL Ferritin ng/mL Total Bilirubin 0.9 (0.2-1.3) mg/dL AST 32 (14-36) U/L ALT 32 (7-56) U/L Alkaline Phosphatase 227 H (38-126) U/L Troponin I ng/mL Total Protein 6.9 (5.8-8.3) g/dL Albumin 3.2 (3.0-4.8) g/dL Globulin 3.7 gm/dL Albumin/Globulin Ratio 0.9 L (1.1-1.8) 25-OH Vitamin D Total (30.0-100.0) NG/ML Procalcitonin (0.19-0.49) NG/ML Urine Color (YELLOW) Urine Appearance (CLEAR) Urine pH (4.7-8.0) Ur Specific [place] (1.005-1.035) Urine Protein (<30 mg/dL) mg/dL Urine Glucose (UA) (NEGATIVE) mg/dL Urine Ketones (NEGATIVE) mg/dL Urine Blood (NEGATIVE) Urine Nitrate (NEGATIVE) Urine Bilirubin (NEGATIVE) Urine Urobilinogen (<1 E.U./dL) E.U./dL Ur Leukocyte Esterase (NEGATIVE) Gracy/uL Urine RBC (0-2) /hpf Urine WBC (0-6) /hpf Ur Epithelial Cells (0-5) /hpf Urine Bacteria (NONE) /hpf Urine Eosinophils Ur Random Creatinine mg/dL U Random Total Protein Ur Random Urea Nitrogn mg/dL 05/27/18 05/27/18 05/27/18 Range/Units 19:00 15:37 15:37 WBC 13.7 H D (4.5-11.0) 10^3/uL RBC 3.75 (3.5-6.1) 10^6/uL Hgb 9.4 L (12.0-16.0) g/dL Hct 29.6 L (36.0-48.0) % MCV 78.9 L (80.0-105.0) fl MCH 25.1 (25.0-35.0) pg MCHC 31.8 (31.0-37.0) g/dl RDW 15.3 H (11.5-14.5) % Plt Count 311 (120.0-450.0) 10^3/uL MPV 8.8 (7.0-11.0) fl Neut % (Auto) 91.4 H (50.0-68.0) % Lymph % (Auto) 4.7 L (22.0-35.0) % [place] % (Auto) 3.0 (1.0-6.0) % Eos % (Auto) 0.4 L (1.5-5.0) % Baso % (Auto) 0.5 (0.0-3.0) % Lymph # (Auto) 0.6 L (1.2-3.4) [place] # (Auto) 0.4 (0.1-0.6) Eos # (Auto) 0.1 (0.0-0.7) Baso # (Auto) 0.07 (0.0-2.0) K/mm3 Absolute Neuts (auto) 12.54 H (1.4-6.5) Neutrophils % (Manual) 96 H (50.0-70.0) % Lymphocytes % (Manual) 1 L (22.0-35.0) % Atypical Lymphs % 1 H (0.0-0.0) % Monocytes % (Manual) 2 (1.0-6.0) % Poikilocytosis (manual Slight Ovalocytes Slight [place] Cells Slight Retic Count (0.5-1.5) % PT 17.1 H (9.4-12.5) SECONDS INR 1.54 APTT 35.4 (26.9-38.3) Seconds pCO2 (35-45) mm/Hg pO2 (80-100) mm/Hg HCO3 (21-28) mmol/L ABG pH (7.35-7.45) ABG Total CO2 (22-28) mmol.L ABG O2 Saturation (95-98) % ABG O2 Content (15-23) ML/dl ABG Base Excess (-2.0-3.0) mmol/L ABG Hemoglobin (11.7-17.4) g/dL ABG Carboxyhemoglobin (0.5-1.5) % POC ABG HHb (Measured) (0-5) % ABG Methemoglobin (0.0-3.0) % ABG O2 Capacity (16-24) mL/dl Hgb O2 Saturation (95.0-98.0) % FiO2 % Sodium (132-148) mmol/L Potassium (3.6-5.0) mmol/L Chloride (98-107) mmol/L Carbon Dioxide (21-33) mmol/L Anion Gap (10-20) BUN (7-21) mg/dL Creatinine (0.7-1.2) mg/dl Est GFR ( Amer) Est GFR (Non-Af Amer) POC Glucose (mg/dL) (65-110) mg/dL Random Glucose (70-110) mg/dL Calcium (8.4-10.5) mg/dL Phosphorus (2.5-4.5) mg/dL Magnesium (1.7-2.2) mg/dL Iron (45-180) ug/dL TIBC (265-497) ug/dL % Saturation (20-55) % Transferrin (206-381) mg/dL Ferritin ng/mL Total Bilirubin (0.2-1.3) mg/dL AST (14-36) U/L ALT (7-56) U/L Alkaline Phosphatase (38-126) U/L Troponin I ng/mL Total Protein (5.8-8.3) g/dL Albumin (3.0-4.8) g/dL Globulin gm/dL Albumin/Globulin Ratio (1.1-1.8) 25-OH Vitamin D Total (30.0-100.0) NG/ML Procalcitonin 0.43 (0.19-0.49) NG/ML Urine Color (YELLOW) Urine Appearance (CLEAR) Urine pH (4.7-8.0) Ur Specific [place] (1.005-1.035) Urine Protein (<30 mg/dL) mg/dL Urine Glucose (UA) (NEGATIVE) mg/dL Urine Ketones (NEGATIVE) mg/dL Urine Blood (NEGATIVE) Urine Nitrate (NEGATIVE) Urine Bilirubin (NEGATIVE) Urine Urobilinogen (<1 E.U./dL) E.U./dL Ur Leukocyte Esterase (NEGATIVE) Gracy/uL Urine RBC (0-2) /hpf Urine WBC (0-6) /hpf Ur Epithelial Cells (0-5) /hpf Urine Bacteria (NONE) /hpf Urine Eosinophils Ur Random Creatinine mg/dL U Random Total Protein Ur Random Urea Nitrogn mg/dL 05/27/18 05/27/18 05/27/18 Range/Units 15:37 14:37 12:08 WBC (4.5-11.0) 10^3/uL RBC (3.5-6.1) 10^6/uL Hgb (12.0-16.0) g/dL Hct (36.0-48.0) % MCV (80.0-105.0) fl MCH (25.0-35.0) pg MCHC (31.0-37.0) g/dl RDW (11.5-14.5) % Plt Count (120.0-450.0) 10^3/uL MPV (7.0-11.0) fl Neut % (Auto) (50.0-68.0) % Lymph % (Auto) (22.0-35.0) % [place] % (Auto) (1.0-6.0) % Eos % (Auto) (1.5-5.0) % Baso % (Auto) (0.0-3.0) % Lymph # (Auto) (1.2-3.4) [place] # (Auto) (0.1-0.6) Eos # (Auto) (0.0-0.7) Baso # (Auto) (0.0-2.0) K/mm3 Absolute Neuts (auto) (1.4-6.5) Neutrophils % (Manual) (50.0-70.0) % Lymphocytes % (Manual) (22.0-35.0) % Atypical Lymphs % (0.0-0.0) % Monocytes % (Manual) (1.0-6.0) % Poikilocytosis (manual Ovalocytes Hema Cells Retic Count (0.5-1.5) % PT (9.4-12.5) SECONDS INR APTT (26.9-38.3) Seconds pCO2 (35-45) mm/Hg pO2 (80-100) mm/Hg HCO3 (21-28) mmol/L ABG pH (7.35-7.45) ABG Total CO2 (22-28) mmol.L ABG O2 Saturation (95-98) % ABG O2 Content (15-23) ML/dl ABG Base Excess (-2.0-3.0) mmol/L ABG Hemoglobin (11.7-17.4) g/dL ABG Carboxyhemoglobin (0.5-1.5) % POC ABG HHb (Measured) (0-5) % ABG Methemoglobin (0.0-3.0) % ABG O2 Capacity (16-24) mL/dl Hgb O2 Saturation (95.0-98.0) % FiO2 % Sodium 139 (132-148) mmol/L Potassium 5.3 H (3.6-5.0) mmol/L Chloride 113 H (98-107) mmol/L Carbon Dioxide 18 L (21-33) mmol/L Anion Gap 13 (10-20) BUN 34 H (7-21) mg/dL Creatinine 1.2 (0.7-1.2) mg/dl Est GFR ( Amer) 54 Est GFR (Non-Af Amer) 45 POC Glucose (mg/dL) 221 H 212 H (65-110) mg/dL Random Glucose 217 H (70-110) mg/dL Calcium 8.5 (8.4-10.5) mg/dL Phosphorus 4.1 (2.5-4.5) mg/dL Magnesium 1.7 (1.7-2.2) mg/dL Iron (45-180) ug/dL TIBC (265-497) ug/dL % Saturation (20-55) % Transferrin (206-381) mg/dL Ferritin ng/mL Total Bilirubin 1.3 (0.2-1.3) mg/dL AST 31 (14-36) U/L ALT 27 (7-56) U/L Alkaline Phosphatase 260 H D (38-126) U/L Troponin I < 0.01 ng/mL Total Protein 7.4 (5.8-8.3) g/dL Albumin 3.5 (3.0-4.8) g/dL Globulin 3.9 gm/dL Albumin/Globulin Ratio 0.9 L (1.1-1.8) 25-OH Vitamin D Total (30.0-100.0) NG/ML Procalcitonin (0.19-0.49) NG/ML Urine Color (YELLOW) Urine Appearance (CLEAR) Urine pH (4.7-8.0) Ur Specific [place] (1.005-1.035) Urine Protein (<30 mg/dL) mg/dL Urine Glucose (UA) (NEGATIVE) mg/dL Urine Ketones (NEGATIVE) mg/dL Urine Blood (NEGATIVE) Urine Nitrate (NEGATIVE) Urine Bilirubin (NEGATIVE) Urine Urobilinogen (<1 E.U./dL) E.U./dL Ur Leukocyte Esterase (NEGATIVE) [place]/uL Urine RBC (0-2) /hpf Urine WBC (0-6) /hpf Ur Epithelial Cells (0-5) /hpf Urine Bacteria (NONE) /hpf Urine Eosinophils Ur Random Creatinine mg/dL U Random Total Protein Ur Random Urea Nitrogn mg/dL Laboratory Results - last 24 hr 05/27/18 05/27/18 05/27/18 12:08 14:37 15:37 WBC RBC Hgb Hct MCV MCH MCHC RDW Plt Count MPV Neut % (Auto) Lymph % (Auto) [place] % (Auto) Eos % (Auto) Baso % (Auto) Lymph # (Auto) [place] # (Auto) Eos # (Auto) Baso # (Auto) Absolute Neuts (auto) Neutrophils % (Manual) Lymphocytes % (Manual) Atypical Lymphs % Monocytes % (Manual) Poikilocytosis (manual Ovalocytes [place] Cells Retic Count PT INR APTT pCO2 pO2 HCO3 ABG pH ABG Total CO2 ABG O2 Saturation ABG O2 Content ABG Base Excess ABG Hemoglobin ABG Carboxyhemoglobin POC ABG HHb (Measured) ABG Methemoglobin ABG O2 Capacity Hgb O2 Saturation FiO2 Sodium 139 Potassium 5.3 H Chloride 113 H Carbon Dioxide 18 L Anion Gap 13 BUN 34 H Creatinine 1.2 Est GFR ( Amer) 54 Est GFR (Non-Af Amer) 45 POC Glucose (mg/dL) 212 H 221 H Random Glucose 217 H Calcium 8.5 Phosphorus 4.1 Magnesium 1.7 Iron TIBC % Saturation Transferrin Ferritin Total Bilirubin 1.3 AST 31 ALT 27 Alkaline Phosphatase 260 H D Troponin I < 0.01 Total Protein 7.4 Albumin 3.5 Globulin 3.9 Albumin/Globulin Ratio 0.9 L 25-OH Vitamin D Total Procalcitonin Urine Color Urine Appearance Urine pH Ur Specific [place] Urine Protein Urine Glucose (UA) Urine Ketones Urine Blood Urine Nitrate Urine Bilirubin Urine Urobilinogen Ur Leukocyte Esterase Urine RBC Urine WBC Ur Epithelial Cells Urine Bacteria Urine Eosinophils Ur Random Creatinine U Random Total Protein Ur Random Urea Nitrogn 05/27/18 05/27/18 05/27/18 15:37 15:37 19:00 WBC 13.7 H D RBC 3.75 Hgb 9.4 L Hct 29.6 L MCV 78.9 L MCH 25.1 MCHC 31.8 RDW 15.3 H Plt Count 311 MPV 8.8 Neut % (Auto) 91.4 H Lymph % (Auto) 4.7 L [place] % (Auto) 3.0 Eos % (Auto) 0.4 L Baso % (Auto) 0.5 Lymph # (Auto) 0.6 L [place] # (Auto) 0.4 Eos # (Auto) 0.1 Baso # (Auto) 0.07 Absolute Neuts (auto) 12.54 H Neutrophils % (Manual) 96 H Lymphocytes % (Manual) 1 L Atypical Lymphs % 1 H Monocytes % (Manual) 2 Poikilocytosis (manual Slight Ovalocytes Slight Hema Cells Slight Retic Count PT 17.1 H INR 1.54 APTT 35.4 pCO2 pO2 HCO3 ABG pH ABG Total CO2 ABG O2 Saturation ABG O2 Content ABG Base Excess ABG Hemoglobin ABG Carboxyhemoglobin POC ABG HHb (Measured) ABG Methemoglobin ABG O2 Capacity Hgb O2 Saturation FiO2 Sodium Potassium Chloride Carbon Dioxide Anion Gap BUN Creatinine Est GFR ( Amer) Est GFR (Non-Af Amer) POC Glucose (mg/dL) Random Glucose Calcium Phosphorus Magnesium Iron TIBC % Saturation Transferrin Ferritin Total Bilirubin AST ALT Alkaline Phosphatase Troponin I Total Protein Albumin Globulin Albumin/Globulin Ratio 25-OH Vitamin D Total Procalcitonin 0.43 Urine Color Urine Appearance Urine pH Ur Specific [place] Urine Protein Urine Glucose (UA) Urine Ketones Urine Blood Urine Nitrate Urine Bilirubin Urine Urobilinogen Ur Leukocyte Esterase Urine RBC Urine WBC Ur Epithelial Cells Urine Bacteria Urine Eosinophils Ur Random Creatinine U Random Total Protein Ur Random Urea Nitrogn 05/27/18 05/28/18 05/28/18 23:00 05:56 06:50 WBC RBC Hgb Hct MCV MCH MCHC RDW Plt Count MPV Neut % (Auto) Lymph % (Auto) [place] % (Auto) Eos % (Auto) Baso % (Auto) Lymph # (Auto) [place] # (Auto) Eos # (Auto) Baso # (Auto) Absolute Neuts (auto) Neutrophils % (Manual) Lymphocytes % (Manual) Atypical Lymphs % Monocytes % (Manual) Poikilocytosis (manual Ovalocytes [place] Cells Retic Count PT INR APTT pCO2 31 L pO2 73.0 L HCO3 16.7 L ABG pH 7.34 L ABG Total CO2 17.7 L ABG O2 Saturation 98.0 ABG O2 Content 11.7 L ABG Base Excess -8.2 L ABG Hemoglobin 8.7 L ABG Carboxyhemoglobin 2.6 H POC ABG HHb (Measured) 1.9 ABG Methemoglobin 0.8 ABG O2 Capacity 11.9 L Hgb O2 Saturation 94.7 L FiO2 40.0 Sodium 143 Potassium 4.6 Chloride 114 H Carbon Dioxide 20 L Anion Gap 13 BUN 35 H Creatinine 1.5 H Est GFR ( Amer) 42 Est GFR (Non-Af Amer) 35 POC Glucose (mg/dL) 159 H Random Glucose 152 H Calcium 8.7 Phosphorus 3.9 Magnesium 1.8 Iron TIBC % Saturation Transferrin Ferritin Total Bilirubin 0.9 AST 32 ALT 32 Alkaline Phosphatase 227 H Troponin I Total Protein 6.9 Albumin 3.2 Globulin 3.7 Albumin/Globulin Ratio 0.9 L 25-OH Vitamin D Total Procalcitonin Urine Color Urine Appearance Urine pH Ur Specific [place] Urine Protein Urine Glucose (UA) Urine Ketones Urine Blood Urine Nitrate Urine Bilirubin Urine Urobilinogen Ur Leukocyte Esterase Urine RBC Urine WBC Ur Epithelial Cells Urine Bacteria Urine Eosinophils Ur Random Creatinine U Random Total Protein Ur Random Urea Nitrogn 05/28/18 05/28/18 05/28/18 06:50 06:50 06:50 WBC 11.9 H RBC 3.61 Hgb 9.0 L Hct 28.3 L MCV 78.4 L MCH 24.9 L MCHC 31.8 RDW 15.2 H Plt Count 298 MPV 8.5 Neut % (Auto) 82.2 H Lymph % (Auto) 10.3 L [place] % (Auto) 5.1 Eos % (Auto) 1.8 Baso % (Auto) 0.6 Lymph # (Auto) 1.2 [place] # (Auto) 0.6 Eos # (Auto) 0.2 Baso # (Auto) 0.07 Absolute Neuts (auto) 9.79 H Neutrophils % (Manual) Lymphocytes % (Manual) Atypical Lymphs % Monocytes % (Manual) Poikilocytosis (manual Ovalocytes Hema Cells Retic Count PT 17.3 H INR 1.53 APTT 47.2 H pCO2 pO2 HCO3 ABG pH ABG Total CO2 ABG O2 Saturation ABG O2 Content ABG Base Excess ABG Hemoglobin ABG Carboxyhemoglobin POC ABG HHb (Measured) ABG Methemoglobin ABG O2 Capacity Hgb O2 Saturation FiO2 Sodium Potassium Chloride Carbon Dioxide Anion Gap BUN Creatinine Est GFR ( Amer) Est GFR (Non-Af Amer) POC Glucose (mg/dL) Random Glucose Calcium Phosphorus Magnesium Iron TIBC % Saturation Transferrin Ferritin Total Bilirubin AST ALT Alkaline Phosphatase Troponin I Total Protein Albumin Globulin Albumin/Globulin Ratio 25-OH Vitamin D Total Procalcitonin Urine Color Urine Appearance Urine pH Ur Specific [place] Urine Protein Urine Glucose (UA) Urine Ketones Urine Blood Urine Nitrate Urine Bilirubin Urine Urobilinogen Ur Leukocyte Esterase Urine RBC Urine WBC Ur Epithelial Cells Urine Bacteria Urine Eosinophils Ur Random Creatinine U Random Total Protein Ur Random Urea Nitrogn 05/28/18 05/28/18 05/28/18 07:45 08:40 08:40 WBC 12.2 H RBC 3.65 Hgb 9.0 L Hct 28.6 L MCV 78.4 L MCH 24.7 L MCHC 31.5 RDW 15.2 H Plt Count 289 MPV 8.5 Neut % (Auto) 83.8 H Lymph % (Auto) 10.6 L [place] % (Auto) 3.3 Eos % (Auto) 1.6 Baso % (Auto) 0.7 Lymph # (Auto) 1.3 [place] # (Auto) 0.4 Eos # (Auto) 0.2 Baso # (Auto) 0.08 Absolute Neuts (auto) 10.20 H Neutrophils % (Manual) Lymphocytes % (Manual) Atypical Lymphs % Monocytes % (Manual) Poikilocytosis (manual Ovalocytes Hema Cells Retic Count 2.32 H PT INR APTT pCO2 pO2 HCO3 ABG pH ABG Total CO2 ABG O2 Saturation ABG O2 Content ABG Base Excess ABG Hemoglobin ABG Carboxyhemoglobin POC ABG HHb (Measured) ABG Methemoglobin ABG O2 Capacity Hgb O2 Saturation FiO2 Sodium 141 Potassium 4.7 Chloride 114 H Carbon Dioxide 20 L Anion Gap 11 BUN 35 H Creatinine 1.6 H Est GFR ( Amer) 39 Est GFR (Non-Af Amer) 32 POC Glucose (mg/dL) 152 H Random Glucose 167 H Calcium 8.6 Phosphorus Magnesium Iron TIBC % Saturation Transferrin Ferritin 83.0 Total Bilirubin AST ALT Alkaline Phosphatase Troponin I 0.02 D Total Protein Albumin Globulin Albumin/Globulin Ratio 25-OH Vitamin D Total Procalcitonin Urine Color Urine Appearance Urine pH Ur Specific [place] Urine Protein Urine Glucose (UA) Urine Ketones Urine Blood Urine Nitrate Urine Bilirubin Urine Urobilinogen Ur Leukocyte Esterase Urine RBC Urine WBC Ur Epithelial Cells Urine Bacteria Urine Eosinophils Ur Random Creatinine U Random Total Protein Ur Random Urea Nitrogn 05/28/18 05/28/18 05/28/18 08:40 08:40 08:40 WBC RBC Hgb Hct MCV MCH MCHC RDW Plt Count MPV Neut % (Auto) Lymph % (Auto) [place] % (Auto) Eos % (Auto) Baso % (Auto) Lymph # (Auto) [place] # (Auto) Eos # (Auto) Baso # (Auto) Absolute Neuts (auto) Neutrophils % (Manual) Lymphocytes % (Manual) Atypical Lymphs % Monocytes % (Manual) Poikilocytosis (manual Ovalocytes Hema Cells Retic Count PT INR APTT pCO2 pO2 HCO3 ABG pH ABG Total CO2 ABG O2 Saturation ABG O2 Content ABG Base Excess ABG Hemoglobin ABG Carboxyhemoglobin POC ABG HHb (Measured) ABG Methemoglobin ABG O2 Capacity Hgb O2 Saturation FiO2 Sodium Potassium Chloride Carbon Dioxide Anion Gap BUN Creatinine Est GFR ( Amer) Est GFR (Non-Af Amer) POC Glucose (mg/dL) Random Glucose Calcium Phosphorus Magnesium Iron 40 L TIBC 267 % Saturation 15 L Transferrin 198.75 L Ferritin Total Bilirubin AST ALT Alkaline Phosphatase Troponin I Total Protein Albumin Globulin Albumin/Globulin Ratio 25-OH Vitamin D Total 45.3 Procalcitonin Urine Color Urine Appearance Urine pH Ur Specific [place] Urine Protein Urine Glucose (UA) Urine Ketones Urine Blood Urine Nitrate Urine Bilirubin Urine Urobilinogen Ur Leukocyte Esterase Urine RBC Urine WBC Ur Epithelial Cells Urine Bacteria Urine Eosinophils Ur Random Creatinine U Random Total Protein Ur Random Urea Nitrogn 05/28/18 05/28/18 05/28/18 10:15 10:15 10:15 WBC RBC Hgb Hct MCV MCH MCHC RDW Plt Count MPV Neut % (Auto) Lymph % (Auto) [place] % (Auto) Eos % (Auto) Baso % (Auto) Lymph # (Auto) [place] # (Auto) Eos # (Auto) Baso # (Auto) Absolute Neuts (auto) Neutrophils % (Manual) Lymphocytes % (Manual) Atypical Lymphs % Monocytes % (Manual) Poikilocytosis (manual Ovalocytes Hema Cells Retic Count PT INR APTT pCO2 pO2 HCO3 ABG pH ABG Total CO2 ABG O2 Saturation ABG O2 Content ABG Base Excess ABG Hemoglobin ABG Carboxyhemoglobin POC ABG HHb (Measured) ABG Methemoglobin ABG O2 Capacity Hgb O2 Saturation FiO2 Sodium Potassium Chloride Carbon Dioxide Anion Gap BUN Creatinine Est GFR ( Amer) Est GFR (Non-Af Amer) POC Glucose (mg/dL) Random Glucose Calcium Phosphorus Magnesium Iron TIBC % Saturation Transferrin Ferritin Total Bilirubin AST ALT Alkaline Phosphatase Troponin I Total Protein Albumin Globulin Albumin/Globulin Ratio 25-OH Vitamin D Total Procalcitonin Urine Color Urine Appearance Urine pH Ur Specific [place] Urine Protein Urine Glucose (UA) Urine Ketones Urine Blood Urine Nitrate Urine Bilirubin Urine Urobilinogen Ur Leukocyte Esterase Urine RBC Urine WBC Ur Epithelial Cells Urine Bacteria Urine Eosinophils Negative Ur Random Creatinine 58 U Random Total Protein Cancelled Ur Random Urea Nitrogn 312 05/28/18 05/28/18 05/28/18 10:15 10:15 10:59 WBC RBC Hgb Hct MCV MCH MCHC RDW Plt Count MPV Neut % (Auto) Lymph % (Auto) [place] % (Auto) Eos % (Auto) Baso % (Auto) Lymph # (Auto) [place] # (Auto) Eos # (Auto) Baso # (Auto) Absolute Neuts (auto) Neutrophils % (Manual) Lymphocytes % (Manual) Atypical Lymphs % Monocytes % (Manual) Poikilocytosis (manual Ovalocytes [place] Cells Retic Count PT INR APTT pCO2 pO2 HCO3 ABG pH ABG Total CO2 ABG O2 Saturation ABG O2 Content ABG Base Excess ABG Hemoglobin ABG Carboxyhemoglobin POC ABG HHb (Measured) ABG Methemoglobin ABG O2 Capacity Hgb O2 Saturation FiO2 Sodium Potassium Chloride Carbon Dioxide Anion Gap BUN Creatinine Est GFR ( Amer) Est GFR (Non-Af Amer) POC Glucose (mg/dL) 149 H Random Glucose Calcium Phosphorus Magnesium Iron TIBC % Saturation Transferrin Ferritin Total Bilirubin AST ALT Alkaline Phosphatase Troponin I Total Protein Albumin Globulin Albumin/Globulin Ratio 25-OH Vitamin D Total Procalcitonin Urine Color Yellow Urine Appearance Clear Urine pH 5.0 Ur Specific [place] 1.020 Urine Protein 30 H Urine Glucose (UA) Negative Urine Ketones Negative Urine Blood Trace-lysed H Urine Nitrate Negative Urine Bilirubin Negative Urine Urobilinogen 0.2 Ur Leukocyte Esterase Trace H Urine RBC 2 - 5 H Urine WBC 5 - 10 H Ur Epithelial Cells 4 - 5 Urine Bacteria Mod Urine Eosinophils Ur Random Creatinine U Random Total Protein 55 Ur Random Urea Nitrogn Radiology Impressions: Radiology Impressions Interventional Vascular Procedure 05/27/18 08:30 IMPRESSION: 1.Successful distal left SFA and popliteal artery jet stream atherectomy and drug-eluting balloon angioplasty 2. Jet stream atherectomy and angioplasty of the left anterior tibial artery origin 3. 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 Multiple stenoses in the right popliteal artery below the knee. Chest X-Ray 05/28/18 05:24 IMPRESSION: No interval change in pulmonary vascular congestion. Right basilar airspace disease unchanged as well as mild right pleural effusion. Borderline left pleural effusion. EKG/Cardiology Studies: Cardiology / EKG Studies 05/27/18 14:50 EKG [ELECTROCARDIOGRAM] Stat Comment: Reason For Exam: chf Critical Care Progress Note - Nutrition Nutrition: Nutrition Category Date Time Status Diabetic [Consistent Carbohydrate] [DIET] Diets 05/28/18 Lunch Ordered Attending/Attestation - Attestation I have personally seen and examined this patient.: Yes I have fully participated in the care of the patient.: Yes I have reviewed all pertinent clinical information: Yes Notes (Text): 05/28/18 15:[address] Rm note
[2018-05-28 07:33] LABS: INR 1.53; PROTHROMBIN TIME 17.3 SECONDS (9.4-12.5)
[2018-05-28 07:39] LABS: ALB/GLOB RATIO 0.9 (1.1-1.8); ALBUMIN 3.2 g/dL (3.0-4.8); CALCIUM 8.7 mg/dL (8.4-10.5)
--- NOTE | 2018-05-28 08:04 | RAD ---
Date of service: 05/28/2018 HISTORY: crackles COMPARISON: Portable chest 05/27/2018, 1:07 p.m.. FINDINGS: LUNGS: Increased airspace disease seen in the right base with left base clear. PLEURA: No pneumothorax bilaterally. Borderline left pleural effusion. Mild right pleural effusion reiterated. CARDIOVASCULAR: Calcific atherosclerotic changes are seen related to the thoracic aorta. Stable cardiac silhouette. No interval change in pulmonary vascular congestion. OSSEOUS STRUCTURES: No significant abnormalities. VISUALIZED UPPER ABDOMEN: Normal. OTHER FINDINGS: None. IMPRESSION: No interval change in pulmonary vascular congestion. Right basilar airspace disease unchanged as well as mild right pleural effusion. Borderline left pleural effusion.
[2018-05-28] MEDS: Insulin Lispro (HUMAlog) HIGH Coverage SC SCH ×4 (08:39→22:27)
[2018-05-28 08:47] LABS: BASO # 0.08 K/mm3 (0.0-2.0); BASO % 0.7 % (0.0-3.0); EOS # 0.2 (0.0-0.7); EOS % 1.6 % (1.5-5.0); LYMPH # 1.3 (1.2-3.4); LYMPH % 10.6 % (22.0-35.0); MEAN CELL VOLUME 78.4 fl (80.0-105.0); MEAN CORPUSCULAR HEMOGLOBIN 24.7 pg (25.0-35.0); MEAN CORPUSCULAR HGB CONC 31.5 g/dl (31.0-37.0); MEAN PLATELET VOLUME 8.5 fl (7.0-11.0); MONO # 0.4 (0.1-0.6); MONO % 3.3 % (1.0-6.0); RBC 3.65 10^6/uL (3.5-6.1); RED CELL DISTRIBUTION WIDTH 15.2 % (11.5-14.5); WHITE BLOOD COUNT 12.2 10^3/uL (4.5-11.0)
[2018-05-28 08:58] LABS: CALCIUM 8.6 mg/dL (8.4-10.5)
[2018-05-28 09:02] LABS: IRON 40 ug/dL (45-180)
[2018-05-28 09:08] LABS: TROPONIN I 0.02 ng/mL
[2018-05-28 09:11] LABS: % IRON SATURATION 15 % (20-55); TOTAL IRON BINDING CAPACITY 267 ug/dL (265-497)
[2018-05-28] MEDS: Insulin Lispro (humaLOG) MIX 75/25(10 ml) SC SCH ×2 (09:22→18:35)
--- NOTE | 2018-05-28 09:38 | PN ---
DATE: 05/28/2018 SUBJECTIVE: The patient is seen and examined at bedside. Her breathing appears to be more comfortable. PHYSICAL EXAMINATION VITAL SIGNS: She is still on BiPAP, 14/6 with FIO2 of 40% and she is pulling 577 mL tidal volume and respiratory 20, oxygen saturation 97% and heart rate 114. The patient is on nitroglycerin drip 60 mcg per minute (increase to 80 mcg per minute). Blood pressure 180/17. HEENT: Head and neck atraumatic. LUNGS: few crackles bilaterally. HEART: Regular rate and rhythm. S1 and S2 normal. ABDOMEN: Soft, nontender and nondistended. MUSCULOSKELETAL: 1+ bilateral pedal and ankle edema, right more than left. SKIN: Moist. PSYCHIATRIC: The patient is alert, awake and oriented. Complaining on tiredness. LABORATORY DATA: Sodium 139, potassium 5.3, chloride 113, carbon dioxide 18, BUN 34, creatinine 1.2, glucose 159, AST 31, ALT 27, total bilirubin 1.3 and alkaline phosphatase 260. Troponin less than 0.01. Procalcitonin 0.43. TSH 3.57. WBC 11.9 down from 13.7, hemoglobin 9 down from 9.4 and platelet count 298. ABG yesterday 7.34 (up from 7.28) on 40% FIO2 and on BiPAP. MEDICATIONS: Tylenol p.r.n., Norvasc, aspirin, Lipitor, aztreonam, clonidine, digoxin 0.25 mg p.o. at 02:00 p.m., Lasix 40 mg IV every 12 hours, heparin drip, regular insulin sliding scale high protocol, isosorbide mononitrate, meclizine, metoprolol 50 mg p.o. t.i.d. in the physical vancomycin. Chest x-ray showed some improvement in bilateral infiltrates/vascular congestion. ASSESSMENT AND PLAN: This is a 67-year-old lady who presented to ICU after left vascular bed angioplasty (popliteal artery and iliac artery) with hypertensive emergency complicated by cardiogenic pulmonary edema and hypoxemic respiratory failure, secondary to diastolic CHF exacerbation, requiring noninvasive positive pressure ventilation and nitroglycerin drip as well as diuresis. At present time the patient appears to be more comfortable. Chest imaging showed improvement in pulmonary vascular congestion. She is diuresing well. We will continue with nitroglycerin for preload reduction and aggressive diuresis while monitoring and supplementing electrolytes as needed. I would continue with bilevel positive airway pressure at present time. The patient is on therapeutic anticoagulation for atrial fibrillation. We will follow troponin as well. The patient is on metoprolol for rate control. She is on amlodipine and clonidine that would help with afterload reduction as well. We will continue to target euvolemia, euglycemia, normothermia and oxygen saturation more than 90%. We will continue with deep venous thrombosis and gastrointestinal prophylaxis. Addendum: creatinine 1.6-->MARIE?-->nephrology on board Dr. Gar. Until commented by nephro would continue with diuresis as benefits of treating pulmonary edema and hypoxemic respiratory failure overweigh its risks. Once euvolemic-->will hold diuresis. cont statins. Would maintain euglycemia and CXP84-59. ccm time 40 min Bello Rm MD ABISAI
[2018-05-28 10:30] LABS: URINE BILIRUBIN NEGATIVE (NEGATIVE); URINE BLOOD TRACE-LYSED (NEGATIVE); URINE GLUCOSE (UA) NEGATIVE (NEGATIVE); URINE LEUKOCYTE ESTERASE TRACE Leu/uL (NEGATIVE); URINE PROTEIN 30 mg/dL (<30 mg/dL); URINE UROBILINOGEN 0.2 E.U./dL (<1 E.U./dL)
--- NOTE | 2018-05-28 10:48 | CP.PCM.PN ---
Subjective - Date & Time of Evaluation Date of Evaluation: 05/28/18 Time of Evaluation: 10:45 - Subjective Subjective: Podiatry Progress Note - Dr. Kim/Isa 67F seen and evaluated this AM with Dr. Moss for left second digit gangrene. Patient resting comfortably, NAD in ICU. Patient had vascular intervention procedure performed yesterday. Patient was supposed to be taken for left second digit amputation today however she was given heparin drip overnight and her case was cancelled for today. States that she is in less pain in her feet today and does not have to put them in a dependent position for relief. Denies n/v/f/d/c/salazar/cp/dizziness. Reports shortness of breath. Objective - Vital Signs/Intake and Output Vital Signs (last 24 hours): Temp Pulse Resp BP Pulse Ox 98 F 125 H 21 188/92 H 88 L 05/27/18 18:04 05/28/18 08:57 05/28/18 09:09 05/28/18 09:21 05/28/18 08:57 Intake and Output: 05/28/18 05/28/18 06:59 18:59 Intake Total 180 Output Total 400 Balance -220 - Medications Medications: Current Medications Acetaminophen (Tylenol 325mg Tab) 650 mg PO Q6H PRN PRN Reason: Fever >100.4 F Amlodipine Besylate (Norvasc) 10 mg PO DAILY [facility] Last Admin: 05/28/18 09:00 Dose: 10 mg Aspirin (Aspirin Chewable) 81 mg PO DAILY [facility] Last Admin: 05/28/18 09:17 Dose: 81 mg Atorvastatin Calcium (Lipitor) 40 mg PO QOTHERDAY [facility] Last Admin: 05/27/18 10:30 Dose: Not Given Clonidine HCl (Catapres) 0.3 mg PO TID [facility] Last Admin: 05/28/18 09:16 Dose: 0.3 mg Dextrose (Dextrose 50% Inj) 50 ml IVP ONCE PRN PRN Reason: Hypoglycemia Digoxin (Lanoxin) 0.25 mg PO 1400 [facility] Glipizide (Glucotrol) 10 mg PO DAILY [facility] Last Admin: 05/27/18 10:00 Dose: Not Given Aztreonam (Azactam 1 Gm) 100 mls @ 100 mls/hr IVPB Q8 [facility]; Protocol Stop: 05/28/18 22:01 Last Admin: 05/28/18 07:05 Dose: 100 mls/hr Nitroglycerin/Dextrose (Nitroglycerin 50 Mg/250 Ml D5w) 50 mg in 250 mls @ 6 mls/hr IV .Q24H PRN; Protocol PRN Reason: Systolic Blood Pressure Last Admin: 05/28/18 03:27 Dose: 60 mcg/min, 18 mls/hr Heparin Sodium/Sodium Chloride (Heparin 83161 Units/250ml 1/2 Normal Saline) 25,000 units in 250 mls @ 10 mls/hr IV .Q24H PRN; Protocol PRN Reason: ADJUST RATE PER PROTOCOL Last Admin: 05/28/18 00:44 Dose: 10 mls/hr Insulin Human Lispro (Humalog High) 0 units SC ACHS [facility]; Protocol Last Admin: 05/28/18 08:39 Dose: 2 units Insulin Lispro Protam/Lispro Human (Humalog Mix 75/25) 10 units SC ACBD [facility] Last Admin: 05/28/18 09:22 Dose: 10 u Isosorbide Mononitrate (Imdur Er) 30 mg PO 0600 [facility] Last Admin: 05/28/18 09:17 Dose: 30 mg Labetalol HCl (Trandate) 100 mg PO BID [facility] Last Admin: 05/28/18 09:21 Dose: 100 mg Levalbuterol HCl (Xopenex) 1.25 mg IH [id number] [facility] Last Admin: 05/28/18 08:15 Dose: 1.25 mg Meclizine HCl (Antivert) 25 mg PO TID PRN PRN Reason: dizzy Nitroglycerin (Nitro-Bid 2% Oint) 1 ea TOP Q8H [facility] Last Admin: 05/27/18 11:21 Dose: Not Given Silver Sulfadiazine (Silvadene 1% 25 Gm) 0 gm TP BID [facility] Last Admin: 05/27/18 10:30 Dose: Not Given - Labs Labs: 05/28/18 08:40 05/28/18 08:40 PT 17.3 SECONDS (9.4-12.5) H 05/28/18 06:50 INR 1.53 05/28/18 06:50 APTT 47.2 Seconds (26.9-38.3) H 05/28/18 06:50 - Constitutional Appears: Non-toxic - Head Exam Head Exam: NORMOCEPHALIC - Extremities Exam Additional comments: LLE focused VASC: DP and PT pulses nonpalpable; cap refill <3 seconds to digits 1,3,4,5 unable to assess 2nd digit; temp gradient warm to cool, 2nd digit cold to touch; no edema noted DERM: second digit gangrenous, completely black in color from the PIPJ distally; no other dermatological pathology ORTHO: Tenderness to palpation 2nd digit NEURO: gross and protective sensation mildly diminished - Neurological Exam Neurological Exam: Alert, Awake, Oriented x3 - Psychiatric Exam Psychiatric exam: Normal Affect, Normal Mood Assessment and Plan - Assessment and Plan (Free Text) Assessment: 67F with left second digit gangrene and PVD Plan: Patient seen and evaluated with Dr. Moss VSS, WBC 12.2 Left foot XR: negative for OM LLE MRI: acute OM distal phalanx 2nd digit Arterial duplex: severely abnormal ABIs at rest limited by calcified vessels; L SFA occlusive disease; bilateral tibial occlusive disease Successful revascularization with Dr. Marrufo Vascular clearance for surgery, will discuss date of planned procedure and stop heparin the day before surgery Continue local wound care: betadine, DSD Podiatry will continue to follow
[2018-05-28 10:52] LABS: URINE APPEARANCE CLEAR (CLEAR); URINE COLOR YELLOW (YELLOW)
[2018-05-28 11:06] LABS: URINE BACTERIA MOD /hpf
--- NOTE | 2018-05-28 11:28 | CARD ---
APPROVED REPORT Date of service: 05/27/2018 EKG Measurement Heart [id number] <Conclusion> Atrial fibrillation T wave abnormality, consider lateral ischemia or digitalis effect Abnormal ECG
--- NOTE | 2018-05-28 12:56 | CP.PCM.PN ---
Subjective - Date & Time of Evaluation Date of Evaluation: 05/27/18 Time of Evaluation: 10:40 - Subjective Subjective: Noted events overnight. Patient went for angioplasty yesterday and developed SOB after the procedure, being managed in the ICU for hypertensive urgency and probable pulmonary edema. Comfortable in bed but having pain in the left foot. Objective - Vital Signs/Intake and Output Vital Signs (last 24 hours): Temp Pulse Resp BP Pulse Ox 97.8 F 84 18 170/60 H 95 05/26/18 06:00 05/26/18 13:07 05/26/18 06:00 05/26/18 09:46 05/26/18 06:00 Intake and Output: 05/26/18 05/26/18 06:59 18:59 Intake Total 360 Balance 360 - Medications Medications: Current Medications Acetaminophen (Tylenol 325mg Tab) 650 mg PO Q6H PRN PRN Reason: Fever >100.4 F Alprazolam (Xanax) 0.25 mg PO BID PRN; Protocol PRN Reason: Anxiety Stop: 06/02/18 11:01 Amlodipine Besylate (Norvasc) 10 mg PO DAILY [facility] Last Admin: 05/26/18 09:46 Dose: 10 mg Atorvastatin Calcium (Lipitor) 40 mg PO QOTHERDAY [facility] Last Admin: 05/25/18 10:18 Dose: 40 mg Clonidine HCl (Catapres) 0.3 mg PO TID [facility] Last Admin: 05/26/18 09:50 Dose: 0.3 mg Dextrose (Dextrose 50% Inj) 50 ml IVP ONCE PRN PRN Reason: Hypoglycemia Glipizide (Glucotrol) 10 mg PO DAILY [facility] Last Admin: 05/26/18 09:49 Dose: Not Given Aztreonam (Azactam 1 Gm) 100 mls @ 100 mls/hr IVPB Q8 [facility]; Protocol Stop: 05/28/18 22:01 Last Admin: 05/26/18 05:20 Dose: 100 mls/hr Sodium Chloride (Sodium Chloride 0.45%) 1,000 mls @ 80 mls/hr IV .[id number] [facility] Stop: 05/28/18 08:00 Last Admin: 05/26/18 12:24 Dose: 80 mls/hr Vancomycin HCl 2 gm/ Sodium (Chloride) 500 mls @ 170 mls/hr IVPB ONCE ONE; Protocol Stop: 05/26/18 16:19 Ibuprofen (Motrin Tab) 600 mg PO Q6H PRN PRN Reason: Pain, Mild (1-3) Last Admin: 05/25/18 21:29 Dose: 600 mg Insulin Human Lispro (Humalog High) 0 units SC ACHS [facility]; Protocol Last Admin: 05/26/18 12:25 Dose: 2 units Insulin Lispro Protam/Lispro Human (Humalog Mix 75/25) 10 units SC ACBD [facility] Last Admin: 05/26/18 07:56 Dose: Not Given Isosorbide Mononitrate (Imdur Er) 30 mg PO 0600 [facility] Last Admin: 05/26/18 05:12 Dose: 30 mg Levalbuterol HCl (Xopenex) 1.25 mg IH [id number] [facility] Last Admin: 05/26/18 13:04 Dose: 1.25 mg Meclizine HCl (Antivert) 25 mg PO TID PRN PRN Reason: dizzy Metoprolol Tartrate (Lopressor) 50 mg PO TID [facility] Last Admin: 05/26/18 09:49 Dose: 50 mg Silver Sulfadiazine (Silvadene 1% 25 Gm) 0 gm TP BID [facility] Last Admin: 05/25/18 17:50 Dose: 25 gm - Labs Labs: 05/22/18 06:45 05/22/18 06:45 PT 25.6 SECONDS (9.4-12.5) H 05/21/18 18:30 INR 2.31 05/21/18 18:30 APTT 44.0 Seconds (26.9-38.3) H 05/21/18 18:30 - Constitutional Appears: Chronically Ill - Head Exam Head Exam: NORMAL INSPECTION - Neck Exam Neck Exam: absent: Lymphadenopathy, Meningismus - Respiratory Exam Respiratory Exam: Decreased Breath Sounds - Cardiovascular Exam Cardiovascular Exam: +S1, +S2 - GI/Abdominal Exam GI & Abdominal Exam: Soft. 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
[2018-05-28] MEDS: Digoxin 250 mcg (0.25 mg) Tab PO SCH (14:18)
--- NOTE | 2018-05-28 15:35 | US ---
Date of service: 05/28/2018 PROCEDURE: Ultrasound of the Kidneys HISTORY: aleks on CKD 3a COMPARISON: None available. TECHNIQUE: Sonogram of the kidneys. FINDINGS: RIGHT KIDNEY: Measures: 10.2 cm. Normal in size, contour and echogenicity. No stone, solid mass lesion or hydronephrosis visualized. LEFT KIDNEY: Measures: 10.0 cm. Normal in size, contour and echogenicity. No stone, solid mass lesion or hydronephrosis visualized. OTHER FINDINGS: Incidentally noted cholelithiasis. No mural thickening. IMPRESSION: Normal renal ultrasound examination. Cholelithiasis noted.
--- NOTE | 2018-05-28 15:58 | PN ---
DATE: 05/28/2018 SUBJECTIVE: The patient is 67 years old, seen and examined. Mild shortness of breath, otherwise doing better, still on BiPAP. PHYSICAL EXAMINATION VITAL SIGNS: She is afebrile, pulse 125, respirations 21, blood pressure 188/92. LUNGS: Bilateral diffuse decreased breath sounds, decreased at bases. HEART: S1 and S2 audible. ABDOMEN: Soft and nontender. No rebound. No guarding. NEUROLOGIC: The patient is awake, alert, oriented, able to communicate. LABORATORY DATA: WBC is 12.2, hemoglobin 9, hematocrit 28.6, and platelets 289. Chemistry: Sodium 141, potassium 4.7, chloride 114, CO2 of 20, BUN 35, creatinine 1.6, blood sugar of 167. ASSESSMENT 1. Chronic obstructive pulmonary disease exacerbation. 2. Congestive heart failure exacerbation. 3. Peripheral vascular disease, status post angiography. 4. Right lower lobe infiltrate. 5. Second toe gangrene. 6. Insulin-dependent diabetes. PLAN: Currently, the patient is on Azactam. We will monitor her blood sugar. She is on anticoagulant. Continue her on diuretics. We will followup the patient in a.m. Jason Laws MD
[2018-05-28] MEDS: Silver Sulfadiazine 1% Cream (25 gm) TP SCH ×2 (18:31→18:32)
[2018-05-28 20:29] LABS: INR 1.59; PROTHROMBIN TIME 17.6 SECONDS (9.4-12.5)
--- NOTE | 2018-05-28 22:25 | PN ---
DATE: 05/28/2018 SUBJECTIVE: The patient is seen lying in bed in the ICU. She is currently on BiPAP. She underwent peripheral angiography yesterday. She had respiratory difficulty before the procedure and was in rapid atrial fibrillation. She was treated with IV metoprolol, digoxin and Lasix. Following the procedure, she was also given additional Lasix and required transfer from the PACU to the ICU for observation, further diuresis and treatment for respiratory insufficiency. She was kept on BiPAP overnight. During her interventional vascular procedure, atherectomy and drug-eluting balloon angioplasty of the distal left SFA and popliteal artery was performed as well as the left anterior tibial artery. She is seen in the ICU on BiPAP machine. She complains of dry mouth. She has had no chest pain. MEDICATIONS: Her current medications include aspirin, Azactam, clonidine, glipizide, IV heparin, insulin, Imdur 30 mg daily, digoxin 0.25 mg daily, Lipitor 40 mg daily, metoprolol 50 mg every 12 hours, IV nitroglycerin, Norvasc 10 mg daily, labetalol 100 mg b.i.d., and Xopenex. OBJECTIVE: GENERAL: She is an overweight middle-aged woman. VITAL SIGNS: Blood pressure is 170/74 with a pulse of 90, in atrial fibrillation, respirations are 14. She is afebrile. HEENT: BiPAP mask is in place. CHEST: Bilateral rhonchi heard and bibasilar rales. HEART: PMI displaced laterally. Systolic murmurs noted in the left sternal border. ABDOMEN: Soft and nontender with normoactive bowel sounds. EXTREMITIES: No edema. The left second toe has evidence of dry gangrene. Both feet are warm. DIAGNOSTIC DATA: Potassium is 4.7, BUN and creatinine are 35 and 1.6. White count 12.2, hemoglobin and hematocrit are 9 and 28.6 with a platelet count of 289,000. PTT is 47.2. Arterial blood gas showed a pH of 7.34, pCO2 of 31, pO2 of 73 on 40%. Chest x-ray reveals normal cardiac silhouette with bilateral congestive changes. Echocardiogram was performed and reveals biatrial enlargement with normal LV size and systolic function, moderate mitral and tricuspid regurgitation are present. IMPRESSION: 1. Decompensated congestive heart failure, acute diastolic likely secondary to valvular heart disease and hydration prior to contrast use. 2. Severe peripheral vascular disease, status post percutaneous coronary intervention of left superficial femoral artery and popliteal artery with anterior tibial artery. 3. Gangrenous left second toe. 4. Coronary artery disease, status post remote percutaneous coronary intervention. 5. Moderate mitral and tricuspid regurgitation. 6. Rest of problems as noted. RECOMMENDATIONS: 1. IV heparin will be continued for now. IV Lasix will be added to her regimen. Monitoring renal function will be planned given her recent contrast exposure and diabetes as well as need for diuresis. 2. Oral antihypertensive agents will be resumed as tolerated. From a cardiac standpoint, it would be preferable to stabilize her cardiopulmonary status prior to proceeding with her toe amputation. We will continue to follow any further recommendations as appropriate. Mauro Dowell MD MTDD
[2018-05-29] MEDS: Levalbuterol 1.25 MG/3 ML Inhal Soln UD IH SCH ×4 (02:20→19:36)
[2018-05-29 05:11] LABS: BASO # 0.07 K/mm3 (0.0-2.0); BASO % 0.7 % (0.0-3.0); EOS # 0.4 (0.0-0.7); EOS % 3.7 % (1.5-5.0); HEMOGLOBIN 7.8 g/dL (12.0-16.0); LYMPH # 0.9 (1.2-3.4); LYMPH % 9.2 % (22.0-35.0); MEAN CELL VOLUME 78.8 fl (80.0-105.0); MEAN CORPUSCULAR HEMOGLOBIN 24.7 pg (25.0-35.0); MEAN CORPUSCULAR HGB CONC 31.3 g/dl (31.0-37.0); MEAN PLATELET VOLUME 8.5 fl (7.0-11.0); MONO # 0.9 (0.1-0.6); MONO % 9.8 % (1.0-6.0); RBC 3.16 10^6/uL (3.5-6.1); RED CELL DISTRIBUTION WIDTH 15.2 % (11.5-14.5); WHITE BLOOD COUNT 9.4 10^3/uL (4.5-11.0)
[2018-05-29 06:51] LABS: ALB/GLOB RATIO 0.8 (1.1-1.8); ALBUMIN 2.6 g/dL (3.0-4.8); CALCIUM 8.2 mg/dL (8.4-10.5)
[2018-05-29] MEDS: Insulin Lispro (humaLOG) MIX 75/25(10 ml) SC SCH ×3 (08:15→19:04)
--- NOTE | 2018-05-29 08:42 | CP.PCM.PN ---
<Pierre Macielima - Last Filed: 05/29/18 17:28> Subjective - Date & Time of Evaluation Date of Evaluation: 05/29/18 Time of Evaluation: 07:30 - Subjective Subjective: Nephrology progress note for Dr. Watkins Patient seen and examined at bedside. Overnight patient had no acute events as per nursing. Patient on high flow O2 this AM. She admitted to a throbbinh pain in her left heel but otherwise denied fever, chills, headache, dizziness, chest pain, palpitations, cough, abd pain, nausea, vomiting, bowel/bladder complaints. She made 200cc urine overnight. Objective - Vital Signs/Intake and Output Vital Signs (last 24 hours): Temp Pulse Resp BP Pulse Ox 98.4 F 70 44 H 158/60 H 89 L 05/29/18 04:00 05/29/18 06:00 05/29/18 06:00 05/29/18 06:00 05/29/18 06:00 Intake and Output: 05/29/18 05/29/18 06:59 18:59 Intake Total 2724 Output Total 500 Balance 2224 - Medications Medications: Current Medications Acetaminophen (Tylenol 325mg Tab) 650 mg PO Q6H PRN PRN Reason: Fever >100.4 F Last Admin: 05/28/18 21:42 Dose: 650 mg Amlodipine Besylate (Norvasc) 10 mg PO DAILY [facility] Last Admin: 05/28/18 09:00 Dose: 10 mg Aspirin (Aspirin Chewable) 81 mg PO DAILY [facility] Last Admin: 05/28/18 09:17 Dose: 81 mg Atorvastatin Calcium (Lipitor) 40 mg PO QOTHERDAY [facility] Last Admin: 05/27/18 10:30 Dose: Not Given Clonidine HCl (Catapres) 0.3 mg PO TID [facility] Last Admin: 05/28/18 17:51 Dose: 0.3 mg Dextrose (Dextrose 50% Inj) 50 ml IVP ONCE PRN PRN Reason: Hypoglycemia Digoxin (Lanoxin) 0.25 mg PO 1400 [facility] Last Admin: 05/28/18 14:18 Dose: 0.25 mg Furosemide (Lasix) 40 mg IV BID [facility] Last Admin: 05/28/18 17:50 Dose: 40 mg Glipizide (Glucotrol) 10 mg PO DAILY [facility] Last Admin: 05/27/18 10:00 Dose: Not Given Nitroglycerin/Dextrose (Nitroglycerin 50 Mg/250 Ml D5w) 50 mg in 250 mls @ 6 mls/hr IV .Q24H PRN; Protocol PRN Reason: Systolic Blood Pressure Last Titration: 05/29/18 05:00 Dose: 16.66 mcg/min, 5 mls/hr Heparin Sodium/Sodium Chloride (Heparin 52775 Units/250ml 1/2 Normal Saline) 25,000 units in 250 mls @ 10 mls/hr IV .Q24H PRN; Protocol PRN Reason: ADJUST RATE PER PROTOCOL Last Titration: 05/28/18 22:36 Dose: 13.8 mls/hr Sodium Chloride (Sodium Chloride 0.9%) 1,000 mls @ 100 mls/hr IV .Q10H [facility] Insulin Human Lispro (Humalog High) 0 units SC ACHS [facility]; Protocol Last Admin: 05/28/18 22:27 Dose: Not Given Insulin Lispro Protam/Lispro Human (Humalog Mix 75/25) 10 units SC ACBD [facility] Last Admin: 05/28/18 18:35 Dose: 10 u Isosorbide Mononitrate (Imdur Er) 30 mg PO 0600 [facility] Last Admin: 05/29/18 05:37 Dose: 30 mg Labetalol HCl (Trandate) 100 mg PO BID [facility] Last Admin: 05/28/18 17:50 Dose: 100 mg Levalbuterol HCl (Xopenex) 1.25 mg IH [id number] [facility] Last Admin: 05/29/18 08:17 Dose: 1.25 mg Meclizine HCl (Antivert) 25 mg PO TID PRN PRN Reason: dizzy Metoprolol Tartrate (Lopressor) 50 mg PO Q12H [facility] Last Admin: 05/29/18 01:06 Dose: 50 mg Nitroglycerin (Nitro-Bid 2% Oint) 1 ea TOP Q8H [facility] Last Admin: 05/27/18 11:21 Dose: Not Given Silver Sulfadiazine (Silvadene 1% 25 Gm) 0 gm TP BID [facility] Last Admin: 05/28/18 18:32 Dose: Not Given - Labs Labs: 05/29/18 04:30 05/29/18 04:30 PT 17.6 SECONDS (9.4-12.5) H 05/28/18 20:00 INR 1.59 05/28/18 20:00 APTT 79.4 Seconds (26.9-38.3) H 05/29/18 04:30 - Additional Findings Additional findings: - Constitutional Appears: Non-toxic, No Acute Distress - Head Exam Head Exam: ATRAUMATIC, NORMAL INSPECTION, NORMOCEPHALIC - Eye Exam Eye Exam: EOMI, Normal appearance, PERRL. absent: Conjunctival injection, Scleral icterus - ENT Exam ENT Exam: Mucous Membranes Moist Additional comments: BiPAP in place - Neck Exam Neck exam: Positive for: Full Rom, Normal Inspection - Respiratory Exam Respiratory Exam: Decreased Breath Sounds, NORMAL BREATHING PATTERN. absent: Accessory Muscle Use - Cardiovascular Exam Cardiovascular Exam: Tachycardia, +S1, +S2 - GI/Abdominal Exam GI & Abdominal Exam: Normal Bowel Sounds, Soft. absent: Firm, Guarding, Rigid - Rectal Exam Rectal Exam: Deferred - Extremities Exam Extremities exam: Negative for: pedal edema Additional comments: Grangrenous left 2nd toe noted - Neurological Exam Neurological exam: Alert, Oriented x3 - Psychiatric Exam Psychiatric exam: Normal Affect, Normal Mood - Skin Skin Exam: Dry, Warm Assessment and Plan - Assessment and Plan (Free Text) Assessment: - GILBERTO on CKD3b likely contrast induced nephropathy - Anion gap metabolic acidosis - Hypochromic Microcytic Anemia - CKD 3b - Hypertension Plan: Patient's vitals, blood work, imaging noted. Patient likely has CKD 3b in light of GFR. GILBERTO likely secondary to contrast induced nephropathy in light of rise in Creatinine after angiogram. Creatinine worsening. At this time, hold Lasix and hydrate patient at NS@100 for 1L. UA reviewed. In light of anemia work up patient ordered 1 bag iron sucrose. Sat goal >20%. Anemia likely chronic in light of elevated ferritin. Continue labetalol. Renal u/s unremarkable. Monitor Is and Os. Continue management as per primary and MICU team. Discussed with Dr. Roland Maciel PGY3 <Kailash Watkins S - Last Filed: 05/29/18 18:47> Objective - Vital Signs/Intake and Output Vital Signs (last 24 hours): Temp Pulse Resp BP Pulse Ox 98.4 F 76 44 H 177/66 H 89 L 05/29/18 04:00 05/29/18 11:01 05/29/18 06:00 05/29/18 11:04 05/29/18 06:00 Intake and Output: 05/29/18 05/29/18 06:59 18:59 Intake Total 2724 Output Total 500 Balance 2224 - Medications Medications: Current Medications Acetaminophen (Tylenol 325mg Tab) 650 mg PO Q6H PRN PRN Reason: Fever >100.4 F Last Admin: 05/28/18 21:42 Dose: 650 mg Amlodipine Besylate (Norvasc) 10 mg PO DAILY [facility] Last Admin: 05/29/18 11:04 Dose: 10 mg Aspirin (Aspirin Chewable) 81 mg PO DAILY [facility] Last Admin: 05/29/18 10:59 Dose: 81 mg Atorvastatin Calcium (Lipitor) 40 mg PO QOTHERDAY [facility] Last Admin: 05/29/18 11:02 Dose: 40 mg Clonidine HCl (Catapres) 0.3 mg PO TID [facility] Last Admin: 05/29/18 11:01 Dose: 0.3 mg Dextrose (Dextrose 50% Inj) 50 ml IVP ONCE PRN PRN Reason: Hypoglycemia Digoxin (Lanoxin) 0.25 mg PO 1400 [facility] Last Admin: 05/29/18 16:06 Dose: 0.25 mg Furosemide (Lasix) 40 mg IV BID [facility] Last Admin: 05/28/18 17:50 Dose: 40 mg Glipizide (Glucotrol) 10 mg PO DAILY [facility] Last Admin: 05/27/18 10:00 Dose: Not Given Nitroglycerin/Dextrose (Nitroglycerin 50 Mg/250 Ml D5w) 50 mg in 250 mls @ 6 mls/hr IV .Q24H PRN; Protocol PRN Reason: Systolic Blood Pressure Last Titration: 05/29/18 05:00 Dose: 16.66 mcg/min, 5 mls/hr Heparin Sodium/Sodium Chloride (Heparin 81884 Units/250ml 1/2 Normal Saline) 25,000 units in 250 mls @ 10 mls/hr IV .Q24H PRN; Protocol PRN Reason: ADJUST RATE PER PROTOCOL Last Titration: 05/28/18 22:36 Dose: 13.8 mls/hr Sodium Chloride (Sodium Chloride 0.9%) 1,000 mls @ 50 mls/hr IV .Q20H [facility] Aztreonam (Azactam 1 Gm) 100 mls @ 100 mls/hr IVPB Q8 [facility]; Protocol Stop: 06/05/18 14:01 Insulin Human Lispro (Humalog High) 0 units SC ACHS [facility]; Protocol Last Admin: 05/29/18 12:56 Dose: 2 units Insulin Lispro Protam/Lispro Human (Humalog Mix 75/25) 10 units SC ACBD [facility] Last Admin: 05/29/18 09:18 Dose: 10 u Isosorbide Mononitrate (Imdur Er) 30 mg PO 0600 [facility] Last Admin: 05/29/18 05:37 Dose: 30 mg Labetalol HCl (Trandate) 100 mg PO BID [facility] Last Admin: 05/29/18 11:05 Dose: 100 mg Levalbuterol HCl (Xopenex) 1.25 mg IH [id number] [facility] Last Admin: 05/29/18 14:23 Dose: 1.25 mg Meclizine HCl (Antivert) 25 mg PO TID PRN PRN Reason: dizzy Last Admin: 05/29/18 10:57 Dose: 25 mg Metoprolol Tartrate (Lopressor) 50 mg PO Q12H [facility] Last Admin: 05/29/18 01:06 Dose: 50 mg Nitroglycerin (Nitro-Bid 2% Oint) 1 ea TOP Q8H [facility] Last Admin: 05/27/18 11:21 Dose: Not Given Silver Sulfadiazine (Silvadene 1% 25 Gm) 0 gm TP BID [facility] Last Admin: 05/28/18 18:32 Dose: Not Given - Labs Labs: 05/29/18 14:15 05/29/18 14:15 PT 16.5 SECONDS (9.4-12.5) H 05/29/18 11:00 INR 1.46 05/29/18 11:00 APTT 68.5 Seconds (26.9-38.3) H 05/29/18 10:05 Assessment and Plan - Assessment and Plan (Free Text) Plan: Pt seen and examined by me. I have reviewed the note of the medical clerk and I agree with it. I have discussed the assessment and plan with the resident. I have reviewed the medications and the last labs. Pt with GILBERTO due to contrast nephropathy. Will D/C Lasix and start IVF. HTN is better controlled. Iron def anemia and will give dose of IV Iron. Pt with PAD with gangrene. CKD-3 us underlying. Follow labs.
[2018-05-29] MEDS ORDERED: Sodium Chloride 0.9% 1,000 ML IV SCH ×2 (08:45→10:57)
[2018-05-29] MEDS: Insulin Lispro (HUMAlog) HIGH Coverage SC SCH ×7 (09:10→22:06)
--- NOTE | 2018-05-29 12:08 | CP.PCM.PN ---
<Hernan Bernabe - Last Filed: 05/29/18 12:04> Subjective - Date & Time of Evaluation Date of Evaluation: 05/29/18 Time of Evaluation: 12:04 - Subjective Subjective: Podiatry Progress Note - Dr. Kim/Isa 67F seen and evaluated this AM with Dr. Kim for left second digit gangrene. Patient resting comfortably, NAD in ICU. States that she is in less pain in her feet today and does not have to put them in a dependent position for relief. Denies n/v/f/d/c/salazar/cp/dizziness. Reports shortness of breath. Aware she will be scheduled for surgery next week and her heparin drip will stop prior to surgery. Objective - Vital Signs/Intake and Output Vital Signs (last 24 hours): Temp Pulse Resp BP Pulse Ox 98.4 F 76 44 H 177/66 H 89 L 05/29/18 04:00 05/29/18 11:01 05/29/18 06:00 05/29/18 11:04 05/29/18 06:00 Intake and Output: 05/29/18 05/29/18 06:59 18:59 Intake Total 2724 Output Total 500 Balance 2224 - Medications Medications: Current Medications Acetaminophen (Tylenol 325mg Tab) 650 mg PO Q6H PRN PRN Reason: Fever >100.4 F Last Admin: 05/28/18 21:42 Dose: 650 mg Amlodipine Besylate (Norvasc) 10 mg PO DAILY [facility] Last Admin: 05/29/18 11:04 Dose: 10 mg Aspirin (Aspirin Chewable) 81 mg PO DAILY [facility] Last Admin: 05/29/18 10:59 Dose: 81 mg Atorvastatin Calcium (Lipitor) 40 mg PO QOTHERDAY [facility] Last Admin: 05/29/18 11:02 Dose: 40 mg Clonidine HCl (Catapres) 0.3 mg PO TID [facility] Last Admin: 05/29/18 11:01 Dose: 0.3 mg Dextrose (Dextrose 50% Inj) 50 ml IVP ONCE PRN PRN Reason: Hypoglycemia Digoxin (Lanoxin) 0.25 mg PO 1400 [facility] Last Admin: 05/28/18 14:18 Dose: 0.25 mg Furosemide (Lasix) 40 mg IV BID [facility] Last Admin: 05/28/18 17:50 Dose: 40 mg Glipizide (Glucotrol) 10 mg PO DAILY [facility] Last Admin: 05/27/18 10:00 Dose: Not Given Nitroglycerin/Dextrose (Nitroglycerin 50 Mg/250 Ml D5w) 50 mg in 250 mls @ 6 mls/hr IV .Q24H PRN; Protocol PRN Reason: Systolic Blood Pressure Last Titration: 05/29/18 05:00 Dose: 16.66 mcg/min, 5 mls/hr Heparin Sodium/Sodium Chloride (Heparin 55453 Units/250ml 1/2 Normal Saline) 25,000 units in 250 mls @ 10 mls/hr IV .Q24H PRN; Protocol PRN Reason: ADJUST RATE PER PROTOCOL Last Titration: 05/28/18 22:36 Dose: 13.8 mls/hr Sodium Chloride (Sodium Chloride 0.9%) 1,000 mls @ 50 mls/hr IV .Q20H [facility] Insulin Human Lispro (Humalog High) 0 units SC ACHS [facility]; Protocol Last Admin: 05/29/18 09:10 Dose: Not Given Insulin Lispro Protam/Lispro Human (Humalog Mix 75/25) 10 units SC ACBD [facility] Last Admin: 05/29/18 09:18 Dose: 10 u Isosorbide Mononitrate (Imdur Er) 30 mg PO 0600 [facility] Last Admin: 05/29/18 05:37 Dose: 30 mg Labetalol HCl (Trandate) 100 mg PO BID [facility] Last Admin: 05/29/18 11:05 Dose: 100 mg Levalbuterol HCl (Xopenex) 1.25 mg IH [id number] [facility] Last Admin: 05/29/18 08:17 Dose: 1.25 mg Meclizine HCl (Antivert) 25 mg PO TID PRN PRN Reason: dizzy Last Admin: 05/29/18 10:57 Dose: 25 mg Metoprolol Tartrate (Lopressor) 50 mg PO Q12H [facility] Last Admin: 05/29/18 01:06 Dose: 50 mg Nitroglycerin (Nitro-Bid 2% Oint) 1 ea TOP Q8H [facility] Last Admin: 05/27/18 11:21 Dose: Not Given Silver Sulfadiazine (Silvadene 1% 25 Gm) 0 gm TP BID [facility] Last Admin: 05/28/18 18:32 Dose: Not Given - Labs Labs: 05/29/18 04:30 05/29/18 04:30 PT 17.6 SECONDS (9.4-12.5) H 05/28/18 20:00 INR 1.59 05/28/18 20:00 APTT 68.5 Seconds (26.9-38.3) H 05/29/18 10:05 - Constitutional Appears: Well, Non-toxic, No Acute Distress - Head Exam Head Exam: ATRAUMATIC, NORMOCEPHALIC - Extremities Exam Additional comments: LLE focused VASC: DP and PT pulses nonpalpable; cap refill <3 seconds to digits 1,3,4,5 unable to assess 2nd digit; temp gradient warm to cool, 2nd digit cold to touch; no edema noted DERM: second digit gangrenous, completely black in color from the PIPJ distally; no other dermatological pathology ORTHO: Tenderness to palpation 2nd digit NEURO: gross and protective sensation mildly diminished - Neurological Exam Neurological Exam: Alert, Awake, Oriented x3 - Psychiatric Exam Psychiatric exam: Normal Affect, Normal Mood Assessment and Plan - Assessment and Plan (Free Text) Assessment: 67F with left second digit gangrene and PVD Plan: Patient seen and evaluated with Dr.Arloro SHARIF, WBC 9.4 Left foot XR: negative for OM LLE MRI: acute OM distal phalanx 2nd digit Successful revascularization with Dr. Marrufo Vascular clearance for surgery, surgery scheduled for Friday at 4:00 PM - make sure heparin stopped over weekend Make NPO for Friday after midnight Continue local wound care: betadine, DSD Podiatry will continue to follow <Gil Kim - Last Filed: 05/29/18 19:11> Objective - Vital Signs/Intake and Output Vital Signs (last 24 hours): Temp Pulse Resp BP Pulse Ox 98.4 F 66 44 H 172/110 H 89 L 05/29/18 04:00 05/29/18 19:06 05/29/18 06:00 05/29/18 19:06 05/29/18 06:00 - Medications Medications: Current Medications Acetaminophen (Tylenol 325mg Tab) 650 mg PO Q6H PRN PRN Reason: Fever >100.4 F Last Admin: 05/28/18 21:42 Dose: 650 mg Amlodipine Besylate (Norvasc) 10 mg PO DAILY [facility] Last Admin: 05/29/18 11:04 Dose: 10 mg Aspirin (Aspirin Chewable) 81 mg PO DAILY [facility] Last Admin: 05/29/18 10:59 Dose: 81 mg Atorvastatin Calcium (Lipitor) 40 mg PO QOTHERDAY [facility] Last Admin: 05/29/18 11:02 Dose: 40 mg Clonidine HCl (Catapres) 0.3 mg PO TID [facility] Last Admin: 05/29/18 18:06 Dose: 0.3 mg Dextrose (Dextrose 50% Inj) 50 ml IVP ONCE PRN PRN Reason: Hypoglycemia Digoxin (Lanoxin) 0.25 mg PO 1400 [facility] Last Admin: 05/29/18 16:06 Dose: 0.25 mg Furosemide (Lasix) 40 mg IV BID [facility] Last Admin: 05/28/18 17:50 Dose: 40 mg Glipizide (Glucotrol) 10 mg PO DAILY [facility] Last Admin: 05/27/18 10:00 Dose: Not Given Nitroglycerin/Dextrose (Nitroglycerin 50 Mg/250 Ml D5w) 50 mg in 250 mls @ 6 mls/hr IV .Q24H PRN; Protocol PRN Reason: Systolic Blood Pressure Last Titration: 05/29/18 05:00 Dose: 16.66 mcg/min, 5 mls/hr Heparin Sodium/Sodium Chloride (Heparin 38911 Units/250ml 1/2 Normal Saline) 25,000 units in 250 mls @ 10 mls/hr IV .Q24H PRN; Protocol PRN Reason: ADJUST RATE PER PROTOCOL Last Titration: 05/28/18 22:36 Dose: 13.8 mls/hr Sodium Chloride (Sodium Chloride 0.9%) 1,000 mls @ 50 mls/hr IV .Q20H [facility] Aztreonam (Azactam 1 Gm) 100 mls @ 100 mls/hr IVPB Q8 [facility]; Protocol Stop: 06/05/18 14:01 Last Admin: 05/29/18 13:01 Dose: 100 mls/hr Insulin Human Lispro (Humalog High) 0 units SC ACHS [facility]; Protocol Last Admin: 05/29/18 18:55 Dose: 4 units Insulin Lispro Protam/Lispro Human (Humalog Mix 75/25) 10 units SC ACBD [facility] Last Admin: 05/29/18 19:04 Dose: 10 u Isosorbide Mononitrate (Imdur Er) 30 mg PO 0600 [facility] Last Admin: 05/29/18 05:37 Dose: 30 mg Labetalol HCl (Trandate) 100 mg PO BID [facility] Last Admin: 05/29/18 19:06 Dose: 100 mg Levalbuterol HCl (Xopenex) 1.25 mg IH [id number] [facility] Last Admin: 05/29/18 14:23 Dose: 1.25 mg Meclizine HCl (Antivert) 25 mg PO TID PRN PRN Reason: dizzy Last Admin: 05/29/18 10:57 Dose: 25 mg Metoprolol Tartrate (Lopressor) 50 mg PO Q12H [facility] Last Admin: 05/29/18 01:06 Dose: 50 mg Nitroglycerin (Nitro-Bid 2% Oint) 1 ea TOP Q8H [facility] Last Admin: 05/27/18 11:21 Dose: Not Given Silver Sulfadiazine (Silvadene 1% 25 Gm) 0 gm TP BID [facility] Last Admin: 05/28/18 18:32 Dose: Not Given - Labs Labs: 05/29/18 14:15 05/29/18 14:15 PT 16.5 SECONDS (9.4-12.5) H 05/29/18 11:00 INR 1.46 05/29/18 11:00 APTT 68.5 Seconds (26.9-38.3) H 05/29/18 10:05 Attending/Attestation - Attestation I have personally seen and examined this patient.: Yes I have fully participated in the care of the patient.: Yes I have reviewed all pertinent clinical information, including history, physical exam and plan: Yes
[2018-05-29 12:27] LABS: INR 1.46; PROTHROMBIN TIME 16.5 SECONDS (9.4-12.5)
[2018-05-29] MEDS: Aztreonam 1 Gm in NS 100mL 100 ML IVPB SCH ×2 (13:01→22:05)
[2018-05-29] MEDS ORDERED: Vancomycin 1gm in NS 250ml 1 GM/250 ML BAG IVPB STA (13:19)
[2018-05-29 14:28] LABS: BASO # 0.09 K/mm3 (0.0-2.0); BASO % 0.9 % (0.0-3.0); EOS # 0.3 (0.0-0.7); EOS % 3.1 % (1.5-5.0); HEMOGLOBIN 8.2 g/dL (12.0-16.0); LYMPH # 0.6 (1.2-3.4); LYMPH % 5.7 % (22.0-35.0); MEAN CELL VOLUME 78.7 fl (80.0-105.0); MEAN CORPUSCULAR HEMOGLOBIN 24.6 pg (25.0-35.0); MEAN CORPUSCULAR HGB CONC 31.2 g/dl (31.0-37.0); MEAN PLATELET VOLUME 8.4 fl (7.0-11.0); MONO # 0.9 (0.1-0.6); MONO % 8.6 % (1.0-6.0); RBC 3.34 10^6/uL (3.5-6.1); RED CELL DISTRIBUTION WIDTH 15.2 % (11.5-14.5)
--- NOTE | 2018-05-29 14:29 | CP.CCUPN ---
<Ariane Hernandez - Last Filed: 05/29/18 14:40> CCU Subjective - Physician Review Subjective (Free Text): Ariane Hernandez PGY1 Critical Care Progress Note Patient seen and examined at bedside this morning. No acute events overnight. Will transition high flow oxygen to nasal cannula today. Off of nitroglycerin drip for 24 hours. Repeat CBC and BMP this afternoon. Patient tolerating diet without complaints and sleeping well. Denies CP, SOB, headaches, numbness, tingling and urinary complaints. Plan for left second toe surgery on Friday. Transfer to [facility]. CCU Objective - Vital Signs / Intake & Output Vital Signs (Last 4 hours): Vital Signs Pulse BP 05/29/18 11:04 177/66 H 05/29/18 11:03 171/66 H 05/29/18 11:01 76 177/69 H 05/29/18 11:00 76 177/69 H 05/29/18 10:59 77 177/69 H Intake and Output (Last 8hrs): Intake & Output 05/28/18 05/29/18 05/29/18 22:59 06:59 14:59 Intake Total 1943 781 Output Total 300 200 Balance 1643 581 Intake: IV 1193 481 antibiotic 600 200 heparin 127 151 nitro 246 130 Oral 750 300 Output: Urine 300 200 Urethral (Kelley) 300 200 Stool 0 - Physical Exam Head: Positive for: Atraumatic, Normocephalic Pupils: Positive for: PERRL Extroacular Muscles: Positive for: EOMI Conjunctiva: Positive for: Normal Mouth: Positive for: Moist Mucous Membranes Neck: Positive for: Normal Range of Motion Respiratory/Chest: Positive for: Clear to Auscultation, Good Air Exchange. Negative for: Respiratory Distress, Accessory Muscle Use Cardiovascular: Positive for: Regular Rate and Rhythm, Normal S1, S2. Negative for: Murmurs Abdomen: Negative for: Tenderness, Distention, Peritoneal Signs Back: Positive for: Normal Inspection Upper Extremity: Positive for: Normal Inspection. Negative for: Cyanosis, Edema Lower Extremity: Positive for: Normal Inspection, Normal ROM, Tenderness, Other (Grangrenous left 2nd toe noted). Negative for: Edema, CALF TENDERNESS, Marek's Sign Neurological: Positive for: GCS=15, CN II-XII Intact, Speech Normal Skin: Positive for: Warm, Dry, Normal Color. Negative for: Rashes Psychiatric: Positive for: Alert, Oriented x 3, Normal Insight, Normal Concentration - Medications Active Medications: Active Medications Generic Name Dose Route Start Last Admin Trade Name Freq PRN Reason Stop Dose Admin Acetaminophen 650 mg 05/21/18 20:42 05/28/18 21:42 Tylenol 325mg Tab PO 650 mg Q6H PRN Administration Fever >100.4 F Amlodipine Besylate 10 mg 05/22/18 10:00 05/29/18 11:04 Norvasc PO 10 mg DAILY [facility] Administration Aspirin 81 mg 05/28/18 10:00 05/29/18 10:59 Aspirin Chewable PO 81 mg DAILY [facility] Administration Atorvastatin Calcium 40 mg 05/23/18 10:00 05/29/18 11:02 Lipitor PO 40 mg QOTHERDAY [facility] Administration Clonidine HCl 0.3 mg 05/22/18 10:00 05/29/18 11:01 Catapres PO 0.3 mg TID [facility] Administration Dextrose 50 ml 05/23/18 16:44 Dextrose 50% Inj IVP ONCE PRN Hypoglycemia Digoxin 0.25 mg 05/27/18 14:00 05/28/18 14:18 Lanoxin PO 0.25 mg 1400 [facility] Administration Furosemide 40 mg 05/28/18 18:00 05/28/18 17:50 Lasix IV 40 mg BID [facility] Administration Glipizide 10 mg 05/22/18 10:00 05/27/18 10:00 Glucotrol PO Not Given DAILY [facility] Nitroglycerin/Dextrose 50 mg in 250 mls @ 6 mls/hr 05/27/18 10:40 05/29/18 05:00 Nitroglycerin 50 Mg/250 Ml D5w IV 16.66 mcg/min .Q24H PRN 5 mls/hr Systolic Blood Pressure Titration Protocol 20 MCG/MIN Heparin Sodium/Sodium Chloride 25,000 units in 250 mls @ 10 mls/hr 05/27/18 21:12 05/28/18 22:36 Heparin 25433 Units/250ml 1/2 Normal Saline IV 13.8 mls/hr .Q24H PRN Titration ADJUST RATE PER PROTOCOL Protocol Sodium Chloride 1,000 mls @ 50 mls/hr 05/29/18 10:57 Sodium Chloride 0.9% IV .Q20H [facility] Aztreonam 100 mls @ 100 mls/hr 05/29/18 14:00 Azactam 1 Gm IVPB 06/05/18 14:01 Q8 [facility] Protocol Vancomycin HCl 1 gm in 250 mls @ 167 mls/hr 05/29/18 13:19 Vancomycin 1gm IVPB 05/29/18 14:48 STAT STA Protocol Insulin Human Lispro 0 units 05/21/18 22:00 05/29/18 12:56 Humalog High SC 2 units ACHS [facility] Administration Protocol Insulin Lispro Protam/Lispro Human 10 units 05/25/18 16:30 05/29/18 09:18 Humalog Mix 75/25 SC 10 u ACBD [facility] Administration Isosorbide Mononitrate 30 mg 05/22/18 06:00 05/29/18 05:37 Imdur Er PO 30 mg 0600 [facility] Administration Labetalol HCl 100 mg 05/28/18 10:00 05/29/18 11:05 Trandate PO 100 mg BID [facility] Administration Levalbuterol HCl 1.25 mg 05/26/18 14:00 05/29/18 14:23 Xopenex IH 1.25 mg [id number] [facility] Administration Meclizine HCl 25 mg 05/21/18 20:02 05/29/18 10:57 Antivert PO 25 mg TID PRN Administration dizzy Metoprolol Tartrate 50 mg 05/28/18 13:30 05/29/18 01:06 Lopressor PO 50 mg Q12H [facility] Administration Nitroglycerin 1 ea 05/27/18 10:45 05/27/18 11:21 Nitro-Bid 2% Oint TOP Not Given Q8H [facility] Silver Sulfadiazine 0 gm 05/22/18 18:00 05/28/18 18:32 Silvadene 1% 25 Gm TP Not Given BID [facility] - Patient Studies Lab Studies: Microbiology Studies 05/28/18 10:15 Urine Culture - Final Urine,Kelley No Growth (<1,000 CFU/ML) 05/27/18 18:46 MRSA Culture (Admit) - Final Nose MRSA NOT DETECTED 05/27/18 15:37 Blood Culture - Preliminary Blood NO GROWTH AFTER 24 HOURS 05/27/18 15:37 Blood Culture - Preliminary Blood NO GROWTH AFTER 24 HOURS Lab Studies 05/29/18 05/29/18 05/29/18 Range/Units 11:00 10:05 07:51 WBC (4.5-11.0) 10^3/uL RBC (3.5-6.1) 10^6/uL Hgb (12.0-16.0) g/dL Hct (36.0-48.0) % MCV (80.0-105.0) fl MCH (25.0-35.0) pg MCHC (31.0-37.0) g/dl RDW (11.5-14.5) % Plt Count (120.0-450.0) 10^3/uL MPV (7.0-11.0) fl Neut % (Auto) (50.0-68.0) % Lymph % (Auto) (22.0-35.0) % Surry % (Auto) (1.0-6.0) % Eos % (Auto) (1.5-5.0) % Baso % (Auto) (0.0-3.0) % Lymph # (Auto) (1.2-3.4) Surry # (Auto) (0.1-0.6) Eos # (Auto) (0.0-0.7) Baso # (Auto) (0.0-2.0) K/mm3 Absolute Neuts (auto) (1.4-6.5) PT 16.5 H (9.4-12.5) SECONDS INR 1.46 APTT 68.5 H (26.9-38.3) Seconds Sodium (132-148) mmol/L Potassium (3.6-5.0) mmol/L Chloride (98-107) mmol/L Carbon Dioxide (21-33) mmol/L Anion Gap (10-20) BUN (7-21) mg/dL Creatinine (0.7-1.2) mg/dl Est GFR ( Amer) Est GFR (Non-Af Amer) POC Glucose (mg/dL) 123 H (65-110) mg/dL Random Glucose (70-110) mg/dL Calcium (8.4-10.5) mg/dL Phosphorus (2.5-4.5) mg/dL Magnesium (1.7-2.2) mg/dL Total Bilirubin (0.2-1.3) mg/dL AST (14-36) U/L ALT (7-56) U/L Alkaline Phosphatase (38-126) U/L Total Protein (5.8-8.3) g/dL Albumin (3.0-4.8) g/dL Globulin gm/dL Albumin/Globulin Ratio (1.1-1.8) PTH Intact Whole Molec (14-64) pg/mL 05/29/18 05/29/18 05/29/18 Range/Units 04:30 04:30 04:30 WBC 9.4 D (4.5-11.0) 10^3/uL RBC 3.16 L (3.5-6.1) 10^6/uL Hgb 7.8 L (12.0-16.0) g/dL Hct 24.9 L (36.0-48.0) % MCV 78.8 L (80.0-105.0) fl MCH 24.7 L (25.0-35.0) pg MCHC 31.3 (31.0-37.0) g/dl RDW 15.2 H (11.5-14.5) % Plt Count 244 (120.0-450.0) 10^3/uL MPV 8.5 (7.0-11.0) fl Neut % (Auto) 76.6 H (50.0-68.0) % Lymph % (Auto) 9.2 L (22.0-35.0) % Surry % (Auto) 9.8 H (1.0-6.0) % Eos % (Auto) 3.7 (1.5-5.0) % Baso % (Auto) 0.7 (0.0-3.0) % Lymph # (Auto) 0.9 L (1.2-3.4) Surry # (Auto) 0.9 H (0.1-0.6) Eos # (Auto) 0.4 (0.0-0.7) Baso # (Auto) 0.07 (0.0-2.0) K/mm3 Absolute Neuts (auto) 7.21 H (1.4-6.5) PT (9.4-12.5) SECONDS INR APTT 79.4 H (26.9-38.3) Seconds Sodium 139 (132-148) mmol/L Potassium 4.9 (3.6-5.0) mmol/L Chloride 114 H (98-107) mmol/L Carbon Dioxide 20 L (21-33) mmol/L Anion Gap 11 (10-20) BUN 41 H (7-21) mg/dL Creatinine 2.1 H (0.7-1.2) mg/dl Est GFR ( Amer) 28 Est GFR (Non-Af Amer) 23 POC Glucose (mg/dL) (65-110) mg/dL Random Glucose 139 H (70-110) mg/dL Calcium 8.2 L (8.4-10.5) mg/dL Phosphorus 4.3 (2.5-4.5) mg/dL Magnesium 1.8 (1.7-2.2) mg/dL Total Bilirubin 0.5 (0.2-1.3) mg/dL AST 23 (14-36) U/L ALT 26 (7-56) U/L Alkaline Phosphatase 176 H D (38-126) U/L Total Protein 5.9 (5.8-8.3) g/dL Albumin 2.6 L (3.0-4.8) g/dL Globulin 3.2 gm/dL Albumin/Globulin Ratio 0.8 L (1.1-1.8) PTH Intact Whole Molec (14-64) pg/mL 05/28/18 05/28/18 05/28/18 Range/Units 21:44 21:15 20:00 WBC (4.5-11.0) 10^3/uL RBC (3.5-6.1) 10^6/uL Hgb (12.0-16.0) g/dL Hct (36.0-48.0) % MCV (80.0-105.0) fl MCH (25.0-35.0) pg MCHC (31.0-37.0) g/dl RDW (11.5-14.5) % Plt Count (120.0-450.0) 10^3/uL MPV (7.0-11.0) fl Neut % (Auto) (50.0-68.0) % Lymph % (Auto) (22.0-35.0) % Surry % (Auto) (1.0-6.0) % Eos % (Auto) (1.5-5.0) % Baso % (Auto) (0.0-3.0) % Lymph # (Auto) (1.2-3.4) Surry # (Auto) (0.1-0.6) Eos # (Auto) (0.0-0.7) Baso # (Auto) (0.0-2.0) K/mm3 Absolute Neuts (auto) (1.4-6.5) PT 17.6 H (9.4-12.5) SECONDS INR 1.59 APTT 35.8 (26.9-38.3) Seconds Sodium (132-148) mmol/L Potassium (3.6-5.0) mmol/L Chloride (98-107) mmol/L Carbon Dioxide (21-33) mmol/L Anion Gap (10-20) BUN (7-21) mg/dL Creatinine (0.7-1.2) mg/dl Est GFR ( Amer) Est GFR (Non-Af Amer) POC Glucose (mg/dL) 139 H (65-110) mg/dL Random Glucose (70-110) mg/dL Calcium (8.4-10.5) mg/dL Phosphorus (2.5-4.5) mg/dL Magnesium (1.7-2.2) mg/dL Total Bilirubin (0.2-1.3) mg/dL AST (14-36) U/L ALT (7-56) U/L Alkaline Phosphatase (38-126) U/L Total Protein (5.8-8.3) g/dL Albumin (3.0-4.8) g/dL Globulin gm/dL Albumin/Globulin Ratio (1.1-1.8) PTH Intact Whole Molec (14-64) pg/mL 05/28/18 05/28/18 Range/Units 16:05 08:40 WBC (4.5-11.0) 10^3/uL RBC (3.5-6.1) 10^6/uL Hgb (12.0-16.0) g/dL Hct (36.0-48.0) % MCV (80.0-105.0) fl MCH (25.0-35.0) pg MCHC (31.0-37.0) g/dl RDW (11.5-14.5) % Plt Count (120.0-450.0) 10^3/uL MPV (7.0-11.0) fl Neut % (Auto) (50.0-68.0) % Lymph % (Auto) (22.0-35.0) % Surry % (Auto) (1.0-6.0) % Eos % (Auto) (1.5-5.0) % Baso % (Auto) (0.0-3.0) % Lymph # (Auto) (1.2-3.4) Surry # (Auto) (0.1-0.6) Eos # (Auto) (0.0-0.7) Baso # (Auto) (0.0-2.0) K/mm3 Absolute Neuts (auto) (1.4-6.5) PT (9.4-12.5) SECONDS INR APTT (26.9-38.3) Seconds Sodium (132-148) mmol/L Potassium (3.6-5.0) mmol/L Chloride (98-107) mmol/L Carbon Dioxide (21-33) mmol/L Anion Gap (10-20) BUN (7-21) mg/dL Creatinine (0.7-1.2) mg/dl Est GFR ( Amer) Est GFR (Non-Af Amer) POC Glucose (mg/dL) 144 H (65-110) mg/dL Random Glucose (70-110) mg/dL Calcium (8.4-10.5) mg/dL Phosphorus (2.5-4.5) mg/dL Magnesium (1.7-2.2) mg/dL Total Bilirubin (0.2-1.3) mg/dL AST (14-36) U/L ALT (7-56) U/L Alkaline Phosphatase (38-126) U/L Total Protein (5.8-8.3) g/dL Albumin (3.0-4.8) g/dL Globulin gm/dL Albumin/Globulin Ratio (1.1-1.8) PTH Intact Whole Molec 113 H (14-64) pg/mL Laboratory Results - last 24 hr 05/28/18 05/28/18 05/28/18 08:40 16:05 20:00 WBC RBC Hgb Hct MCV MCH MCHC RDW Plt Count MPV Neut % (Auto) Lymph % (Auto) Surry % (Auto) Eos % (Auto) Baso % (Auto) Lymph # (Auto) Surry # (Auto) Eos # (Auto) Baso # (Auto) Absolute Neuts (auto) PT 17.6 H INR 1.59 APTT Sodium Potassium Chloride Carbon Dioxide Anion Gap BUN Creatinine Est GFR ( Amer) Est GFR (Non-Af Amer) POC Glucose (mg/dL) 144 H Random Glucose Calcium Phosphorus Magnesium Total Bilirubin AST ALT Alkaline Phosphatase Total Protein Albumin Globulin Albumin/Globulin Ratio PTH Intact Whole Molec 113 H 05/28/18 05/28/18 05/29/18 21:15 21:44 04:30 WBC 9.4 D RBC 3.16 L Hgb 7.8 L Hct 24.9 L MCV 78.8 L MCH 24.7 L MCHC 31.3 RDW 15.2 H Plt Count 244 MPV 8.5 Neut % (Auto) 76.6 H Lymph % (Auto) 9.2 L Surry % (Auto) 9.8 H Eos % (Auto) 3.7 Baso % (Auto) 0.7 Lymph # (Auto) 0.9 L Surry # (Auto) 0.9 H Eos # (Auto) 0.4 Baso # (Auto) 0.07 Absolute Neuts (auto) 7.21 H PT INR APTT 35.8 Sodium Potassium Chloride Carbon Dioxide Anion Gap BUN Creatinine Est GFR ( Amer) Est GFR (Non-Af Amer) POC Glucose (mg/dL) 139 H Random Glucose Calcium Phosphorus Magnesium Total Bilirubin AST ALT Alkaline Phosphatase Total Protein Albumin Globulin Albumin/Globulin Ratio PTH Intact Whole Molec 05/29/18 05/29/18 05/29/18 04:30 04:30 07:51 WBC RBC Hgb Hct MCV MCH MCHC RDW Plt Count MPV Neut % (Auto) Lymph % (Auto) Surry % (Auto) Eos % (Auto) Baso % (Auto) Lymph # (Auto) Surry # (Auto) Eos # (Auto) Baso # (Auto) Absolute Neuts (auto) PT INR APTT 79.4 H Sodium 139 Potassium 4.9 Chloride 114 H Carbon Dioxide 20 L Anion Gap 11 BUN 41 H Creatinine 2.1 H Est GFR ( Amer) 28 Est GFR (Non-Af Amer) 23 POC Glucose (mg/dL) 123 H Random Glucose 139 H Calcium 8.2 L Phosphorus 4.3 Magnesium 1.8 Total Bilirubin 0.5 AST 23 ALT 26 Alkaline Phosphatase 176 H D Total Protein 5.9 Albumin 2.6 L Globulin 3.2 Albumin/Globulin Ratio 0.8 L PTH Intact Whole Molec 05/29/18 05/29/18 10:05 11:00 WBC RBC Hgb Hct MCV MCH MCHC RDW Plt Count MPV Neut % (Auto) Lymph % (Auto) Surry % (Auto) Eos % (Auto) Baso % (Auto) Lymph # (Auto) Surry # (Auto) Eos # (Auto) Baso # (Auto) Absolute Neuts (auto) PT 16.5 H INR 1.46 APTT 68.5 H Sodium Potassium Chloride Carbon Dioxide Anion Gap BUN Creatinine Est GFR ( Amer) Est GFR (Non-Af Amer) POC Glucose (mg/dL) Random Glucose Calcium Phosphorus Magnesium Total Bilirubin AST ALT Alkaline Phosphatase Total Protein Albumin Globulin Albumin/Globulin Ratio PTH Intact Whole Molec Radiology Impressions: Radiology Impressions Renal Ultrasound 05/28/18 08:13 IMPRESSION: Normal renal ultrasound examination. Cholelithiasis noted. Fingerstick Blood Sugar Results: 152 Critical Care Progress Note - Nutrition Nutrition: Nutrition Category Date Time Status Diabetic [Consistent Carbohydrate] [DIET] Diets 05/28/18 Lunch Ordered Assessment/Plan - Assessment and Plan (Free Text) Assessment: This is a 67 year old female with PMH of DM, HTN, HLD, afib on coumadin, CVA in 2013, CAD and PVD was admitted to the hospital on 05/21/18 for left foot second digit gangrene. ICU consulted after patient developed SOB postoperatively from left leg angiogram. Patient admitted for hypoxic respiratory failure complicated by hypertensive emergency in the setting of cardiogenic pulmonary edema and diastolic heart failure. Will continue with BIPAP, preload reduction with lasix and afterload reduction with amlodipine and clonidine. Started on heparin drip for subtherapeutic INR. Transitioned from high flow oxygen to nasal cannula today. Surgery of left foot planned for Friday. Transfer to [facility]. Plan: Neuro: -maintain normothermia -AAO x3, moving extremities spontaneously past midline Cardio: Hx of afib on coumain -subtherapeutic INR, started on heparin drip, will transition to coumadin, follow primary medical team recommendations -INR pending today -maintain MAP>65 Hypertensive emergency -troponin 05/27/18 <0.01 -echo 05/27 shows biatrial enlargement, moderate MR, TR and EF of 74% -nitroglycerin drip stopped yesterday -on norvasc 10mg, clonidine 0.3mg TID, lopressor 50mg BID, imdur 30mg, 0.25mg digoxin -Cardio on consult, Dr. Coronado Lungs: Hypoxic respiratory failure -continue BIPAP, high flow oxygen -SaO2 >90% -supplementary O2 PRN, bipap -CXR 05/29 shows diffuse pulmonary venous congestive changes with B/L lower lobe infiltrates and L > R effusions -CXR 05/28 shows no interval change in pulmonary vascular congestion, mild right pleural effusion -xopenex q6 ID: -afebrile, WBC uptrending today -Lower extremity GORAN on 05/22 revealed severely abnormal GORAN at rest limited by multiple areas of calcification, Left SFA occlusive disease and B/L tibial occlusive disease. -LE MRI on 05/24 showed findings suggestive of acute osteomyelitis involving distal phalanx of second toe. -s/p left leg angiography on 05/27, possible left foot second digit amputation -blood culture negative after 5 days . Repeat urine/blood cx pending -procalc pending -on azatam and vancomycin -ID on consult, Dr. Aguilar -Surgery on consult, Dr Morrell -Podiatry on consult, Dr. Moss -IR on consult, Dr. Marrufo Renal: -maintain euvolemia -avoid nephrotoxic agents, hypochloremia -replace electrolytes as needed -ABG 05/27 reads pH 7.28, pCO2 35, O2 44, bicarb of 16.4; metabolic acidosis -Nephro on consult, Dr. Watkins -BUN/Cr elevated today, start NS at 50cc/hr Heme: -subtherapeutic INR, started on heparin drip, INR pending today Endo: -maintain euglycemia -on insulin ACHS, humalog mix 10 units ACBD GI: -diabetic diet, Surgery of left foot planned for 06/01/18 Patient seen and case discussed with attending, Dr. De Leon <Reinaldo De Leon - Last Filed: 05/29/18 15:55> CCU Objective - Vital Signs / Intake & Output Intake and Output (Last 8hrs): Intake & Output 02/01/19 02/01/19 02/01/19 06:59 14:59 22:59 Intake Total 781 Output Total 200 Balance 581 Intake: IV 481 antibiotic 200 heparin 151 nitro 130 Oral 300 Output: Urine 200 Urethral (Kelley) 200 - Medications Active Medications: Active Medications Generic Name Dose Route Start Last Admin Trade Name Freq PRN Reason Stop Dose Admin Acetaminophen 650 mg 05/21/18 20:42 05/28/18 21:42 Tylenol 325mg Tab PO 650 mg Q6H PRN Administration Fever >100.4 F Amlodipine Besylate 10 mg 05/22/18 10:00 05/29/18 11:04 Norvasc PO 10 mg DAILY [facility] Administration Aspirin 81 mg 05/28/18 10:00 05/29/18 10:59 Aspirin Chewable PO 81 mg DAILY [facility] Administration Atorvastatin Calcium 40 mg 05/23/18 10:00 05/29/18 11:02 Lipitor PO 40 mg QOTHERDAY [facility] Administration Clonidine HCl 0.3 mg 05/22/18 10:00 05/29/18 11:01 Catapres PO 0.3 mg TID [facility] Administration Dextrose 50 ml 05/23/18 16:44 Dextrose 50% Inj IVP ONCE PRN Hypoglycemia Digoxin 0.25 mg 05/27/18 14:00 05/28/18 14:18 Lanoxin PO 0.25 mg 1400 [facility] Administration Furosemide 40 mg 05/28/18 18:00 05/28/18 17:50 Lasix IV 40 mg BID [facility] Administration Glipizide 10 mg 05/22/18 10:00 05/27/18 10:00 Glucotrol PO Not Given DAILY [facility] Nitroglycerin/Dextrose 50 mg in 250 mls @ 6 mls/hr 05/27/18 10:40 05/29/18 05:00 Nitroglycerin 50 Mg/250 Ml D5w IV 16.66 mcg/min .Q24H PRN 5 mls/hr Systolic Blood Pressure Titration Protocol 20 MCG/MIN Heparin Sodium/Sodium Chloride 25,000 units in 250 mls @ 10 mls/hr 05/27/18 21:12 05/28/18 22:36 Heparin 83860 Units/250ml 1/2 Normal Saline IV 13.8 mls/hr .Q24H PRN Titration ADJUST RATE PER PROTOCOL Protocol Sodium Chloride 1,000 mls @ 50 mls/hr 05/29/18 10:57 Sodium Chloride 0.9% IV .Q20H [facility] Aztreonam 100 mls @ 100 mls/hr 05/29/18 14:00 Azactam 1 Gm IVPB 06/05/18 14:01 Q8 [facility] Protocol Insulin Human Lispro 0 units 05/21/18 22:00 05/29/18 12:56 Humalog High SC 2 units ACHS [facility] Administration Protocol Insulin Lispro Protam/Lispro Human 10 units 05/25/18 16:30 05/29/18 09:18 Humalog Mix 75/25 SC 10 u ACBD [facility] Administration Isosorbide Mononitrate 30 mg 05/22/18 06:00 05/29/18 05:37 Imdur Er PO 30 mg 0600 [facility] Administration Labetalol HCl 100 mg 05/28/18 10:00 05/29/18 11:05 Trandate PO 100 mg BID [facility] Administration Levalbuterol HCl 1.25 mg 05/26/18 14:00 05/29/18 14:23 Xopenex IH 1.25 mg [id number] [facility] Administration Meclizine HCl 25 mg 05/21/18 20:02 05/29/18 10:57 Antivert PO 25 mg TID PRN Administration dizzy Metoprolol Tartrate 50 mg 05/28/18 13:30 05/29/18 01:06 Lopressor PO 50 mg Q12H [facility] Administration Nitroglycerin 1 ea 05/27/18 10:45 05/27/18 11:21 Nitro-Bid 2% Oint TOP Not Given Q8H [facility] Silver Sulfadiazine 0 gm 05/22/18 18:00 05/28/18 18:32 Silvadene 1% 25 Gm TP Not Given BID [facility] - Patient Studies Lab Studies: Microbiology Studies 05/27/18 15:37 Blood Culture - Preliminary Blood NO GROWTH AFTER 48 HOURS 05/27/18 15:37 Blood Culture - Preliminary Blood NO GROWTH AFTER 48 HOURS 05/28/18 10:15 Urine Culture - Final Urine,Kelley No Growth (<1,000 CFU/ML) 05/27/18 18:46 MRSA Culture (Admit) - Final Nose MRSA NOT DETECTED Lab Studies 05/29/18 05/29/18 05/29/18 Range/Units 14:15 14:15 14:15 WBC 10.0 (4.5-11.0) 10^3/uL RBC 3.34 L (3.5-6.1) 10^6/uL Hgb 8.2 L (12.0-16.0) g/dL Hct 26.3 L (36.0-48.0) % MCV 78.7 L (80.0-105.0) fl MCH 24.6 L (25.0-35.0) pg MCHC 31.2 (31.0-37.0) g/dl RDW 15.2 H (11.5-14.5) % Plt Count 221 (120.0-450.0) 10^3/uL MPV 8.4 (7.0-11.0) fl Neut % (Auto) 81.7 H (50.0-68.0) % Lymph % (Auto) 5.7 L (22.0-35.0) % Surry % (Auto) 8.6 H (1.0-6.0) % Eos % (Auto) 3.1 (1.5-5.0) % Baso % (Auto) 0.9 (0.0-3.0) % Lymph # (Auto) 0.6 L (1.2-3.4) Surry # (Auto) 0.9 H (0.1-0.6) Eos # (Auto) 0.3 (0.0-0.7) Baso # (Auto) 0.09 (0.0-2.0) K/mm3 Absolute Neuts (auto) 8.17 H (1.4-6.5) PT (9.4-12.5) SECONDS INR APTT (26.9-38.3) Seconds Sodium 138 (132-148) mmol/L Potassium 5.0 (3.6-5.0) mmol/L Chloride 114 H (98-107) mmol/L Carbon Dioxide 18 L (21-33) mmol/L Anion Gap 12 (10-20) BUN 43 H (7-21) mg/dL Creatinine 2.2 H (0.7-1.2) mg/dl Est GFR ( Amer) 27 Est GFR (Non-Af Amer) 22 POC Glucose (mg/dL) (65-110) mg/dL Random Glucose 153 H (70-110) mg/dL Calcium 8.2 L (8.4-10.5) mg/dL Phosphorus (2.5-4.5) mg/dL Magnesium (1.7-2.2) mg/dL Total Bilirubin (0.2-1.3) mg/dL AST (14-36) U/L ALT (7-56) U/L Alkaline Phosphatase (38-126) U/L Total Protein (5.8-8.3) g/dL Albumin (3.0-4.8) g/dL Globulin gm/dL Albumin/Globulin Ratio (1.1-1.8) PTH Intact Whole Molec (14-64) pg/mL Blood Type B POSITIVE Antibody Screen Negative Crossmatch See Detail BBK History Checked Patient has bt 05/29/18 05/29/18 05/29/18 Range/Units 11:00 10:05 07:51 WBC (4.5-11.0) 10^3/uL RBC (3.5-6.1) 10^6/uL Hgb (12.0-16.0) g/dL Hct (36.0-48.0) % MCV (80.0-105.0) fl MCH (25.0-35.0) pg MCHC (31.0-37.0) g/dl RDW (11.5-14.5) % Plt Count (120.0-450.0) 10^3/uL MPV (7.0-11.0) fl Neut % (Auto) (50.0-68.0) % Lymph % (Auto) (22.0-35.0) % Surry % (Auto) (1.0-6.0) % Eos % (Auto) (1.5-5.0) % Baso % (Auto) (0.0-3.0) % Lymph # (Auto) (1.2-3.4) Surry # (Auto) (0.1-0.6) Eos # (Auto) (0.0-0.7) Baso # (Auto) (0.0-2.0) K/mm3 Absolute Neuts (auto) (1.4-6.5) PT 16.5 H (9.4-12.5) SECONDS INR 1.46 APTT 68.5 H (26.9-38.3) Seconds Sodium (132-148) mmol/L Potassium (3.6-5.0) mmol/L Chloride (98-107) mmol/L Carbon Dioxide (21-33) mmol/L Anion Gap (10-20) BUN (7-21) mg/dL Creatinine (0.7-1.2) mg/dl Est GFR ( Amer) Est GFR (Non-Af Amer) POC Glucose (mg/dL) 123 H (65-110) mg/dL Random Glucose (70-110) mg/dL Calcium (8.4-10.5) mg/dL Phosphorus (2.5-4.5) mg/dL Magnesium (1.7-2.2) mg/dL Total Bilirubin (0.2-1.3) mg/dL AST (14-36) U/L ALT (7-56) U/L Alkaline Phosphatase (38-126) U/L Total Protein (5.8-8.3) g/dL Albumin (3.0-4.8) g/dL Globulin gm/dL Albumin/Globulin Ratio (1.1-1.8) PTH Intact Whole Molec (14-64) pg/mL Blood Type Antibody Screen Crossmatch BBK History Checked 05/29/18 05/29/18 05/29/18 Range/Units 04:30 04:30 04:30 WBC 9.4 D (4.5-11.0) 10^3/uL RBC 3.16 L (3.5-6.1) 10^6/uL Hgb 7.8 L (12.0-16.0) g/dL Hct 24.9 L (36.0-48.0) % MCV 78.8 L (80.0-105.0) fl MCH 24.7 L (25.0-35.0) pg MCHC 31.3 (31.0-37.0) g/dl RDW 15.2 H (11.5-14.5) % Plt Count 244 (120.0-450.0) 10^3/uL MPV 8.5 (7.0-11.0) fl Neut % (Auto) 76.6 H (50.0-68.0) % Lymph % (Auto) 9.2 L (22.0-35.0) % Surry % (Auto) 9.8 H (1.0-6.0) % Eos % (Auto) 3.7 (1.5-5.0) % Baso % (Auto) 0.7 (0.0-3.0) % Lymph # (Auto) 0.9 L (1.2-3.4) Surry # (Auto) 0.9 H (0.1-0.6) Eos # (Auto) 0.4 (0.0-0.7) Baso # (Auto) 0.07 (0.0-2.0) K/mm3 Absolute Neuts (auto) 7.21 H (1.4-6.5) PT (9.4-12.5) SECONDS INR APTT 79.4 H (26.9-38.3) Seconds Sodium 139 (132-148) mmol/L Potassium 4.9 (3.6-5.0) mmol/L Chloride 114 H (98-107) mmol/L Carbon Dioxide 20 L (21-33) mmol/L Anion Gap 11 (10-20) BUN 41 H (7-21) mg/dL Creatinine 2.1 H (0.7-1.2) mg/dl Est GFR ( Amer) 28 Est GFR (Non-Af Amer) 23 POC Glucose (mg/dL) (65-110) mg/dL Random Glucose 139 H (70-110) mg/dL Calcium 8.2 L (8.4-10.5) mg/dL Phosphorus 4.3 (2.5-4.5) mg/dL Magnesium 1.8 (1.7-2.2) mg/dL Total Bilirubin 0.5 (0.2-1.3) mg/dL AST 23 (14-36) U/L ALT 26 (7-56) U/L Alkaline Phosphatase 176 H D (38-126) U/L Total Protein 5.9 (5.8-8.3) g/dL Albumin 2.6 L (3.0-4.8) g/dL Globulin 3.2 gm/dL Albumin/Globulin Ratio 0.8 L (1.1-1.8) PTH Intact Whole Molec (14-64) pg/mL Blood Type Antibody Screen Crossmatch BBK History Checked 05/28/18 05/28/1805/28/19 Range/Units 21:44 21:15 20:00 WBC (4.5-11.0) 10^3/uL RBC (3.5-6.1) 10^6/uL Hgb (12.0-16.0) g/dL Hct (36.0-48.0) % MCV (80.0-105.0) fl MCH (25.0-35.0) pg MCHC (31.0-37.0) g/dl RDW (11.5-14.5) % Plt Count (120.0-450.0) 10^3/uL MPV (7.0-11.0) fl Neut % (Auto) (50.0-68.0) % Lymph % (Auto) (22.0-35.0) % [place] % (Auto) (1.0-6.0) % Eos % (Auto) (1.5-5.0) % Baso % (Auto) (0.0-3.0) % Lymph # (Auto) (1.2-3.4) [place] # (Auto) (0.1-0.6) Eos # (Auto) (0.0-0.7) Baso # (Auto) (0.0-2.0) K/mm3 Absolute Neuts (auto) (1.4-6.5) PT 17.6 H (9.4-12.5) SECONDS INR 1.59 APTT 35.8 (26.9-38.3) Seconds Sodium (132-148) mmol/L Potassium (3.6-5.0) mmol/L Chloride (98-107) mmol/L Carbon Dioxide (21-33) mmol/L Anion Gap (10-20) BUN (7-21) mg/dL Creatinine (0.7-1.2) mg/dl Est GFR ( Amer) Est GFR (Non-Af Amer) POC Glucose (mg/dL) 139 H (65-110) mg/dL Random Glucose (70-110) mg/dL Calcium (8.4-10.5) mg/dL Phosphorus (2.5-4.5) mg/dL Magnesium (1.7-2.2) mg/dL Total Bilirubin (0.2-1.3) mg/dL AST (14-36) U/L ALT (7-56) U/L Alkaline Phosphatase (38-126) U/L Total Protein (5.8-8.3) g/dL Albumin (3.0-4.8) g/dL Globulin gm/dL Albumin/Globulin Ratio (1.1-1.8) PTH Intact Whole Molec (14-64) pg/mL Blood Type Antibody Screen Crossmatch BBK History Checked 05/28/18 05/28/18 Range/Units 16:05 08:40 WBC (4.5-11.0) 10^3/uL RBC (3.5-6.1) 10^6/uL Hgb (12.0-16.0) g/dL Hct (36.0-48.0) % MCV (80.0-105.0) fl MCH (25.0-35.0) pg MCHC (31.0-37.0) g/dl RDW (11.5-14.5) % Plt Count (120.0-450.0) 10^3/uL MPV (7.0-11.0) fl Neut % (Auto) (50.0-68.0) % Lymph % (Auto) (22.0-35.0) % Surry % (Auto) (1.0-6.0) % Eos % (Auto) (1.5-5.0) % Baso % (Auto) (0.0-3.0) % Lymph # (Auto) (1.2-3.4) Surry # (Auto) (0.1-0.6) Eos # (Auto) (0.0-0.7) Baso # (Auto) (0.0-2.0) K/mm3 Absolute Neuts (auto) (1.4-6.5) PT (9.4-12.5) SECONDS INR APTT (26.9-38.3) Seconds Sodium (132-148) mmol/L Potassium (3.6-5.0) mmol/L Chloride (98-107) mmol/L Carbon Dioxide (21-33) mmol/L Anion Gap (10-20) BUN (7-21) mg/dL Creatinine (0.7-1.2) mg/dl Est GFR ( Amer) Est GFR (Non-Af Amer) POC Glucose (mg/dL) 144 H (65-110) mg/dL Random Glucose (70-110) mg/dL Calcium (8.4-10.5) mg/dL Phosphorus (2.5-4.5) mg/dL Magnesium (1.7-2.2) mg/dL Total Bilirubin (0.2-1.3) mg/dL AST (14-36) U/L ALT (7-56) U/L Alkaline Phosphatase (38-126) U/L Total Protein (5.8-8.3) g/dL Albumin (3.0-4.8) g/dL Globulin gm/dL Albumin/Globulin Ratio (1.1-1.8) PTH Intact Whole Molec 113 H (14-64) pg/mL Blood Type Antibody Screen Crossmatch BBK History Checked Laboratory Results - last 24 hr 05/28/18 05/28/18 05/28/18 08:40 16:05 20:00 WBC RBC Hgb Hct MCV MCH MCHC RDW Plt Count MPV Neut % (Auto) Lymph % (Auto) Surry % (Auto) Eos % (Auto) Baso % (Auto) Lymph # (Auto) Surry # (Auto) Eos # (Auto) Baso # (Auto) Absolute Neuts (auto) PT 17.6 H INR 1.59 APTT Sodium Potassium Chloride Carbon Dioxide Anion Gap BUN Creatinine Est GFR ( Amer) Est GFR (Non-Af Amer) POC Glucose (mg/dL) 144 H Random Glucose Calcium Phosphorus Magnesium Total Bilirubin AST ALT Alkaline Phosphatase Total Protein Albumin Globulin Albumin/Globulin Ratio PTH Intact Whole Molec 113 H Blood Type Antibody Screen Crossmatch BBK History Checked 05/28/18 05/28/18 05/29/18 21:15 21:44 04:30 WBC 9.4 D RBC 3.16 L Hgb 7.8 L Hct 24.9 L MCV 78.8 L MCH 24.7 L MCHC 31.3 RDW 15.2 H Plt Count 244 MPV 8.5 Neut % (Auto) 76.6 H Lymph % (Auto) 9.2 L Surry % (Auto) 9.8 H Eos % (Auto) 3.7 Baso % (Auto) 0.7 Lymph # (Auto) 0.9 L Surry # (Auto) 0.9 H Eos # (Auto) 0.4 Baso # (Auto) 0.07 Absolute Neuts (auto) 7.21 H PT INR APTT 35.8 Sodium Potassium Chloride Carbon Dioxide Anion Gap BUN Creatinine Est GFR ( Amer) Est GFR (Non-Af Amer) POC Glucose (mg/dL) 139 H Random Glucose Calcium Phosphorus Magnesium Total Bilirubin AST ALT Alkaline Phosphatase Total Protein Albumin Globulin Albumin/Globulin Ratio PTH Intact Whole Molec Blood Type Antibody Screen Crossmatch BBK History Checked 05/29/18 05/29/18 05/29/18 04:30 04:30 07:51 WBC RBC Hgb Hct MCV MCH MCHC RDW Plt Count MPV Neut % (Auto) Lymph % (Auto) Surry % (Auto) Eos % (Auto) Baso % (Auto) Lymph # (Auto) Surry # (Auto) Eos # (Auto) Baso # (Auto) Absolute Neuts (auto) PT INR APTT 79.4 H Sodium 139 Potassium 4.9 Chloride 114 H Carbon Dioxide 20 L Anion Gap 11 BUN 41 H Creatinine 2.1 H Est GFR ( Amer) 28 Est GFR (Non-Af Amer) 23 POC Glucose (mg/dL) 123 H Random Glucose 139 H Calcium 8.2 L Phosphorus 4.3 Magnesium 1.8 Total Bilirubin 0.5 AST 23 ALT 26 Alkaline Phosphatase 176 H D Total Protein 5.9 Albumin 2.6 L Globulin 3.2 Albumin/Globulin Ratio 0.8 L PTH Intact Whole Molec Blood Type Antibody Screen Crossmatch BBK History Checked 05/29/18 05/29/18 05/29/18 10:05 11:00 14:15 WBC 10.0 RBC 3.34 L Hgb 8.2 L Hct 26.3 L MCV 78.7 L MCH 24.6 L MCHC 31.2 RDW 15.2 H Plt Count 221 MPV 8.4 Neut % (Auto) 81.7 H Lymph % (Auto) 5.7 L Surry % (Auto) 8.6 H Eos % (Auto) 3.1 Baso % (Auto) 0.9 Lymph # (Auto) 0.6 L Surry # (Auto) 0.9 H Eos # (Auto) 0.3 Baso # (Auto) 0.09 Absolute Neuts (auto) 8.17 H PT 16.5 H INR 1.46 APTT 68.5 H Sodium Potassium Chloride Carbon Dioxide Anion Gap BUN Creatinine Est GFR ( Amer) Est GFR (Non-Af Amer) POC Glucose (mg/dL) Random Glucose Calcium Phosphorus Magnesium Total Bilirubin AST ALT Alkaline Phosphatase Total Protein Albumin Globulin Albumin/Globulin Ratio PTH Intact Whole Molec Blood Type Antibody Screen Crossmatch BBK History Checked 05/29/18 05/29/18 14:15 14:15 WBC RBC Hgb Hct MCV MCH MCHC RDW Plt Count MPV Neut % (Auto) Lymph % (Auto) Surry % (Auto) Eos % (Auto) Baso % (Auto) Lymph # (Auto) Surry # (Auto) Eos # (Auto) Baso # (Auto) Absolute Neuts (auto) PT INR APTT Sodium 138 Potassium 5.0 Chloride 114 H Carbon Dioxide 18 L Anion Gap 12 BUN 43 H Creatinine 2.2 H Est GFR ( Amer) 27 Est GFR (Non-Af Amer) 22 POC Glucose (mg/dL) Random Glucose 153 H Calcium 8.2 L Phosphorus Magnesium Total Bilirubin AST ALT Alkaline Phosphatase Total Protein Albumin Globulin Albumin/Globulin Ratio PTH Intact Whole Molec Blood Type B POSITIVE Antibody Screen Negative Crossmatch See Detail BBK History Checked Patient has bt Radiology Impressions: Radiology Impressions Chest X-Ray 05/29/18 13:04 IMPRESSION: Diffuse of pulmonary venous congestive changes with bilateral lower lobe alveolar type infiltrates and bilateral effusions left greater than right. Critical Care Progress Note - Nutrition Nutrition: Nutrition Category Date Time Status Diabetic [Consistent Carbohydrate] [DIET] Diets 05/28/18 Lunch Ordered Assessment/Plan - Assessment and Plan (Free Text) Assessment: Patient seen and examined on rounds, with resident, agree with note with following additions/exceptions: Patient is 67yo female with PMHx, DM, HTN, HLD, afib on coumadin, CVA in 2013, CAD and PVD was admitted to the hospital on 05/21/18 for left foot second digit gangrene, patient subsequently developed SOB postoperatively from left leg angiogram, placed on BIPAP, nitro drip, given Lasix, now with clinical improvement. Currently on 2LNC, sat 94%, comfortable, awake, alert, in NAD Labs, imaging, chart reviewed HH stable repeat at 8.2, no clinical signs of bleeding INR pending today, on Heparin drip Worsening, Cr, rule contrast induced nephropathy; Lasix discontinued Started on gentle iVF hydration DM HTN HLD CHF, acute diastolic failure Afib on Coumadin ARF CAD PVD Recommend: - supp o2 as needed, duonebs PRN, BIPAP as needed - Cont with Abx as per ID - BP control - ASA, Plavix, Statin, Heparin drip, check INR, if >2, would DC heparin - Monitor HH closely - FS control - Would HOLD Lasix - Start gentle IVF hydration - Follow up surgery - follow up renal - GI ppx - DVT ppx - Stable, transfer to [facility]
--- NOTE | 2018-05-29 14:29 | RAD ---
Date of service: 05/29/2018 HISTORY: CHF COMPARISON: Comparison made with prior chest radiograph 05/27. FINDINGS: LUNGS: Diffuse of pulmonary venous congestive changes with bilateral lower lobe alveolar type infiltrates and bilateral effusions left greater than right. PLEURA: As above. No pneumothorax apparent. CARDIOVASCULAR: Cardiomegaly. Mild-moderate aortic atherosclerotic calcification present.. OSSEOUS STRUCTURES: No significant abnormalities. VISUALIZED UPPER ABDOMEN: Normal. OTHER FINDINGS: None. IMPRESSION: Diffuse of pulmonary venous congestive changes with bilateral lower lobe alveolar type infiltrates and bilateral effusions left greater than right.
[2018-05-29 14:36] LABS: CALCIUM 8.2 mg/dL (8.4-10.5)
--- NOTE | 2018-05-29 15:19 | PN ---
DATE: 05/29/2018 SUBJECTIVE: The patient is seen lying in bed in the ICU. She is on high flow oxygen. She states her dyspnea has improved. Her blood pressure control has mildly improved as well. She has had a rise in her creatinine to 2.1. She denies any chest pain or dyspnea at rest. She remains in atrial fibrillation. CURRENT MEDICATIONS: Her current medications include aspirin, Catapres, IV heparin, Glucotrol, insulin, Imdur 30 mg daily, digoxin 0.25 mg daily, Lasix is on hold, Lipitor 40 mg every other day, metoprolol 50 mg every 12 hours, IV nitroglycerin, Norvasc 10 mg daily, labetalol 100 mg b.i.d. and Xopenex. OBJECTIVE: GENERAL: She is an overweight middle-aged woman. VITAL SIGNS: Blood pressure 158/60 with a pulse of 70 in atrial fibrillation, respirations are 16. She is afebrile. HEENT: No JVD. CHEST: Bibasilar rales. HEART: PMI displaced laterally with systolic murmur at the apex. ABDOMEN: Soft and nontender with normoactive bowel sounds. EXTREMITIES: 1 to 2+ bilateral leg edema. Her right foot is dressed and wrapped. Both feet are warm. DIAGNOSTIC DATA: Potassium is 4.9, BUN and creatinine are 41 and 2.1. White count 9.4, hemoglobin and hematocrit are 7.8 and 24.9 with a platelet count of 244,000. INR is 79.4. IMPRESSION: 1. Peripheral arterial disease with gangrenous left second toe status post recent percutaneous transluminal angioplasty of her distal left superficial femoral artery and popliteal as well as anterior tibial arteries. 2. Probable contrast-induced nephropathy. 3. Decompensated congestive heart failure, acute diastolic secondary to hydration, contrast load and valvular heart disease. 4. Coronary artery disease, status post remote percutaneous coronary intervention. 5. Moderate mitral and tricuspid regurgitation. 6. History of diabetes. 7. Rest of problems as noted. RECOMMENDATIONS: Intravenous heparin will be continued for now. Lasix is on hold pending her stabilization of her renal function. Cautious hydration can continue. Her oral hypertensive agents can be continued and increased. A decision should be made as to choice of agents whether it would be metoprolol or labetalol as these two beta blockers are not necessary and maximization of one or the other would be most appropriate. We will continue following further recommendations as appropriate. From a cardiac standpoint, she should be ready for her toe amputation as planned on Friday. We will continue to follow any further recommendations as appropriate. Mauro Dowell MD
--- NOTE | 2018-05-29 15:21 | CP.PCM.PN ---
Subjective - Date & Time of Evaluation Date of Evaluation: 05/29/18 Time of Evaluation: 14:30 - Subjective Subjective: Resting in bed, no fevers, still with pain in the left leg, no nausea, no diarrhea. Objective - Vital Signs/Intake and Output Vital Signs (last 24 hours): Temp Pulse Resp BP Pulse Ox 98 F 125 H 21 188/92 H 88 L 05/27/18 18:04 05/28/18 08:57 05/28/18 09:09 05/28/18 09:21 05/28/18 08:57 Intake and Output: 05/28/18 05/28/18 06:59 18:59 Intake Total 180 250 Output Total 400 Balance -220 250 - Medications Medications: Current Medications Acetaminophen (Tylenol 325mg Tab) 650 mg PO Q6H PRN PRN Reason: Fever >100.4 F Amlodipine Besylate (Norvasc) 10 mg PO DAILY [facility] Last Admin: 05/28/18 09:00 Dose: 10 mg Aspirin (Aspirin Chewable) 81 mg PO DAILY [facility] Last Admin: 05/28/18 09:17 Dose: 81 mg Atorvastatin Calcium (Lipitor) 40 mg PO QOTHERDAY [facility] Last Admin: 05/27/18 10:30 Dose: Not Given Clonidine HCl (Catapres) 0.3 mg PO TID [facility] Last Admin: 05/28/18 09:16 Dose: 0.3 mg Dextrose (Dextrose 50% Inj) 50 ml IVP ONCE PRN PRN Reason: Hypoglycemia Digoxin (Lanoxin) 0.25 mg PO 1400 [place] Glipizide (Glucotrol) 10 mg PO DAILY [facility] Last Admin: 05/27/18 10:00 Dose: Not Given Aztreonam (Azactam 1 Gm) 100 mls @ 100 mls/hr IVPB Q8 [facility]; Protocol Stop: 05/28/18 22:01 Last Admin: 05/28/18 07:05 Dose: 100 mls/hr Nitroglycerin/Dextrose (Nitroglycerin 50 Mg/250 Ml D5w) 50 mg in 250 mls @ 6 mls/hr IV .Q24H PRN; Protocol PRN Reason: Systolic Blood Pressure Last Admin: 05/28/18 11:45 Dose: 60 mcg/min, 18 mls/hr Heparin Sodium/Sodium Chloride (Heparin 19967 Units/250ml 1/2 Normal Saline) 25,000 units in 250 mls @ 10 mls/hr IV .Q24H PRN; Protocol PRN Reason: ADJUST RATE PER PROTOCOL Last Admin: 05/28/18 00:44 Dose: 10 mls/hr Insulin Human Lispro (Humalog High) 0 units SC ACHS [facility]; Protocol Last Admin: 05/28/18 11:43 Dose: Not Given Insulin Lispro Protam/Lispro Human (Humalog Mix 75/25) 10 units SC ACBD [facility] Last Admin: 05/28/18 09:22 Dose: 10 u Isosorbide Mononitrate (Imdur Er) 30 mg PO 0600 [facility] Last Admin: 05/28/18 09:17 Dose: 30 mg Labetalol HCl (Trandate) 100 mg PO BID [facility] Last Admin: 05/28/18 09:21 Dose: 100 mg Levalbuterol HCl (Xopenex) 1.25 mg IH [id number] [facility] Last Admin: 05/28/18 08:15 Dose: 1.25 mg Meclizine HCl (Antivert) 25 mg PO TID PRN PRN Reason: dizzy Nitroglycerin (Nitro-Bid 2% Oint) 1 ea TOP Q8H [facility] Last Admin: 05/27/18 11:21 Dose: Not Given Silver Sulfadiazine (Silvadene 1% 25 Gm) 0 gm TP BID [facility] Last Admin: 05/27/18 10:30 Dose: Not Given - Labs Labs: 05/28/18 08:40 05/28/18 08:40 PT 17.3 SECONDS (9.4-12.5) H 05/28/18 06:50 INR 1.53 05/28/18 06:50 APTT 47.2 Seconds (26.9-38.3) H 05/28/18 06:50 - Constitutional Appears: Non-toxic, Chronically Ill - Head Exam Head Exam: NORMAL INSPECTION - ENT Exam ENT Exam: Mucous Membranes Moist - Respiratory Exam Respiratory Exam: Decreased Breath Sounds - Cardiovascular Exam Cardiovascular Exam: +S1, +S2 - GI/Abdominal Exam GI & Abdominal Exam: Soft. absent: Tenderness - Extremities Exam Additional comments: left leg with dressings in place Assessment and Plan - Assessment and Plan (Free Text) Plan: Assessment left 2nd toe gangrene with distal phalanx osteomyelitis on the same toe as seen on MRI, in this patient with probable peripheral vascular disease, went for angioplasty 05/27/2018 history of right leg skin and skin structure infection - patient has had a history of infection in the same leg with fasciotomy, I and D and debridement in September 2014 HTN DM history of left knee surgery history of shoulder surgery Atrial fibrillation history of CVA Plan discussed with Podiatry - plan is for possible amputation/surgery next week - angioplasty done 2 days ago continue intermittent Vancomycin and Azactam for now will continue to monitor clinically
--- NOTE | 2018-05-29 15:39 | PN ---
DATE: 05/29/2018 SUBJECTIVE: The patient is a 67-year-old, seen and examined, seems to be much comfortable. Less short of breath. No nausea, vomiting, or diarrhea. PHYSICAL EXAMINATION VITAL SIGNS: She is afebrile. Pulse 76, respirations 16, blood pressure 177/66. LUNGS: Bilateral fair airflow, at bases. HEART: S1 and S2 audible. ABDOMEN: Soft, obese, nontender. No rebound. No guarding. NEUROLOGIC: She is awake, alert, oriented, and able to communicate. EXTREMITIES: Bilateral leg +1 edema. Left foot is in the dressing. LABORATORY DATA: WBC 9.4, hemoglobin 7.8, hematocrit 24.9, and platelet of 244. Her PT 16.5 and INR 1.46. Chemistry; sodium 139, potassium 4.9, chloride 114, CO2 of 20, BUN 41, creatinine 2.1 and blood sugar of 123. Blood culture and urine cultures are negative. Her renal ultrasound done that shows normal renal ultrasound with cholelithiasis noted. ASSESSMENT: 1. Status post congestive heart failure exacerbation. 2. Hypertension. 3. Pleural effusion. 4. Symptomatic anemia. 5. Left foot second toe gangrene. 6. Severe peripheral vascular disease. 7. Congestive heart failure secondary to valvular disease. 8. Status post angioplasty. 9. Moderate mitral and tricuspid regurgitation. PLAN: Currently, the patient is on IV antibiotics. The patient has symptomatic anemia, she will benefit from one pack RBC. She is being prepped for possible toe amputation on Friday. The patient has chronic atrial fibrillation. She is currently on heparin. We will continue the diuretics. Monitor her electrolytes. She is on IV vancomycin. Jason Laws MD
[2018-05-29] MEDS: Digoxin 250 mcg (0.25 mg) Tab PO SCH (16:06)
[2018-05-29 16:11] VITALS: PULSE 68
[2018-05-29] MEDS ORDERED: Labetalol 5mg/ml (4ml) IV ONE (22:15)
[2018-05-29] MEDS ORDERED: Labetalol 5 mg/ml Inj 20ML IV ONE (22:16)
[2018-05-29] MEDS ORDERED: POLYETHYLENE GLYCOL 3350 17 GM/Dose PACKET PO STA (23:23)
[2018-05-30] MEDS: Levalbuterol 1.25 MG/3 ML Inhal Soln UD IH SCH ×4 (01:41→20:04)
[2018-05-30] MEDS: Heparin25000 units/250ml 1/2NS 25,000 UNITS/250 ML BAG IV PRN (03:30)
[2018-05-30] MEDS ORDERED: DiphenhydrAMINE 50 mg/ml Inj IVP STA (03:32)
[2018-05-30] MEDS: Simethicone 80 mg Chewtab PO PRN (04:20)
[2018-05-30 06:24] LABS: BASO # 0.12 K/mm3 (0.0-2.0); BASO % 0.9 % (0.0-3.0); EOS # 0.3 (0.0-0.7); EOS % 2.2 % (1.5-5.0); HEMOGLOBIN 9.4 g/dL (12.0-16.0); LYMPH # 0.8 (1.2-3.4); LYMPH % 5.6 % (22.0-35.0); MEAN CELL VOLUME 78.5 fl (80.0-105.0); MEAN CORPUSCULAR HEMOGLOBIN 24.4 pg (25.0-35.0); MONO # 0.7 (0.1-0.6); MONO % 5.1 % (1.0-6.0); RBC 3.86 10^6/uL (3.5-6.1); RED CELL DISTRIBUTION WIDTH 15.5 % (11.5-14.5); WHITE BLOOD COUNT 13.8 10^3/uL (4.5-11.0)
[2018-05-30] MEDS: Aztreonam 1 Gm in NS 100mL 100 ML IVPB SCH ×3 (06:44→22:13)
[2018-05-30 06:55] LABS: ALB/GLOB RATIO 0.8 (1.1-1.8); ALBUMIN 3.2 g/dL (3.0-4.8); CALCIUM 8.9 mg/dL (8.4-10.5)
[2018-05-30] MEDS: Insulin Lispro (HUMAlog) HIGH Coverage SC SCH ×4 (08:25→22:14)
[2018-05-30] MEDS: Insulin Lispro (humaLOG) MIX 75/25(10 ml) SC SCH ×2 (08:27→16:32)
--- NOTE | 2018-05-30 08:56 | PN ---
DATE: 05/30/2018 SUBJECTIVE: The patient is seen lying in bed on telemetry. She states she continues to feel poorly. Her dyspnea is improved. She is complaining of severe constipation. Her chest x-ray from yesterday showed persistent congestive changes. Her creatinine has risen to 2.6 as of this morning. CURRENT MEDICATIONS: Include Antivert p.r.n., aspirin, Azactam, clonidine 0.3 mg t.i.d., IV heparin, insulin, Imdur 30 mg daily, Lipitor 40 mg every other day, metoprolol 50 mg every 12 hours, topical nitroglycerin, Norvasc 10 mg daily, labetalol 100 mg b.i.d., and Xopenex. OBJECTIVE: GENERAL: She is an overweight, middle-aged woman. VITAL SIGNS: Blood pressure is 166/70 with a pulse of 66 in atrial fibrillation, respirations are 16. She is afebrile. HEENT: No JVD. CHEST: Bibasilar rales. HEART: PMI displaced laterally with systolic murmur at the lower left sternal border and apex. ABDOMEN: Soft, obese, nontender with bowel sounds. EXTREMITIES: Leg edema 2+ is present. The left foot is wrapped and dressed. DIAGNOSTIC DATA: Potassium 5, BUN and creatinine 45 and 2.6. White count 13.8, hemoglobin and hematocrit 9.4 and 30.3 with platelet count of 307,000, PTT 67. Intake and output report is 3220 and 500 respectively. IMPRESSION: 1. Decompensated congestive heart failure, acute diastolic secondary to recent hydration and valvular heart disease. 2. Severe peripheral vascular disease, status post percutaneous intervention of her left superficial femoral artery and popliteal artery as well as her anterior tibial artery. 3. Gangrenous left second toe. 4. Contrast nephropathy. 5. Coronary artery disease, status post remote multivessel percutaneous coronary intervention. 6. Moderate mitral and tricuspid regurgitation. 7. Diabetes and hypertension with suboptimal control. RECOMMENDATIONS: IV Lasix remains on hold. IV fluids will be withheld at this time. Labetalol dose will be increased for better blood pressure control. Metoprolol will be held rather than provide double beta ary dosing. Digoxin will be discontinued at this time as well. Laxative therapy is advised. Continued monitoring for renal function will be planned. IV heparin will be continued. We will continue to follow and make further recommendations as appropriate. Mauro Dowell MD
--- NOTE | 2018-05-30 10:59 | PN ---
DATE: 05/30/2018 SUBJECTIVE: The patient has no complaints of any chest pain or shortness of breath or headaches. She says she was not able to sleep overnight. PHYSICAL EXAMINATION: VITAL SIGNS: Temperature is 98.5, pulse of 65, blood pressure 165/69, respirations 20. GENERAL: The patient is lying in bed, flat, comfortable. HEENT: No oral lesion. Anicteric sclerae. Moist mucosa. NECK: No JVD, adenopathy, or thyromegaly. CARDIOVASCULAR: S1 and S2, regular. No murmurs, rubs, or gallops. LUNGS: Clear to auscultation bilaterally. No wheeze, rales, or rhonchi. ABDOMEN: Bowel sounds are positive, soft, nontender and nondistended. EXTREMITIES: no cyanosis, clubbing or edema. LABS: White count of 13.8, hemoglobin 9.4, creatinine is 2.6, bicarb of 17. Diffuse pulmonary congestion on chest x-ray. ASSESSMENT: 1. Acute kidney injury, secondary to contrast nephropathy. 2. Non-anion gap metabolic acidosis secondary to chronic kidney disease. 3. Chronic kidney disease stage 3. 4. Hypertension. 5. Chronic anemia. 6. Peripheral arterial disease. PLAN: The patient is currently on IV fluids. I will discontinue the patient's IV fluids because of the chest x-ray. She is euvolemic and has contrast nephropathy which will need to be followed closely. The patient is on aspirin for her peripheral arterial disease. She is on aztreonam for antibiotics. She is on clonidine for her hypertension. Her blood pressure is elevated, but it is difficult to give her medications because of the relative contraindications to ISMAEL inhibitor and ARBs. She is not able to the diuretic therapy at this point because of the acute kidney injury and worsening creatinine. The patient is on insulin for her diabetes. Her Lasix is on hold. She is on simethicone for her reflux. She is on Norvasc for hypertension. Creatinine continues to worsen. I did explain to her that her kidneys are not working well and at this point, we will need to wait to see if she improves. Kailash Watkins MD
[2018-05-30] MEDS: Silver Sulfadiazine 1% Cream (25 gm) TP SCH ×2 (11:31→18:14)
--- NOTE | 2018-05-30 15:31 | CP.PCM.PN ---
Subjective - Date & Time of Evaluation Date of Evaluation: 05/30/18 Time of Evaluation: 11:25 - Subjective Subjective: Having some nausea and being given anti-nausea meds, no fevers, less pain in the left leg. Objective - Vital Signs/Intake and Output Vital Signs (last 24 hours): Temp Pulse Resp BP Pulse Ox 98.4 F 76 44 H 177/66 H 89 L 05/29/18 04:00 05/29/18 11:01 05/29/18 06:00 05/29/18 11:04 05/29/18 06:00 Intake and Output: 05/29/18 05/29/18 06:59 18:59 Intake Total 2724 Output Total 500 Balance 2224 - Medications Medications: Current Medications Acetaminophen (Tylenol 325mg Tab) 650 mg PO Q6H PRN PRN Reason: Fever >100.4 F Last Admin: 05/28/18 21:42 Dose: 650 mg Amlodipine Besylate (Norvasc) 10 mg PO DAILY [facility] Last Admin: 05/29/18 11:04 Dose: 10 mg Aspirin (Aspirin Chewable) 81 mg PO DAILY [facility] Last Admin: 05/29/18 10:59 Dose: 81 mg Atorvastatin Calcium (Lipitor) 40 mg PO QOTHERDAY [facility] Last Admin: 05/29/18 11:02 Dose: 40 mg Clonidine HCl (Catapres) 0.3 mg PO TID [facility] Last Admin: 05/29/18 11:01 Dose: 0.3 mg Dextrose (Dextrose 50% Inj) 50 ml IVP ONCE PRN PRN Reason: Hypoglycemia Digoxin (Lanoxin) 0.25 mg PO 1400 [facility] Last Admin: 05/28/18 14:18 Dose: 0.25 mg Furosemide (Lasix) 40 mg IV BID [facility] Last Admin: 05/28/18 17:50 Dose: 40 mg Glipizide (Glucotrol) 10 mg PO DAILY [facility] Last Admin: 05/27/18 10:00 Dose: Not Given Nitroglycerin/Dextrose (Nitroglycerin 50 Mg/250 Ml D5w) 50 mg in 250 mls @ 6 mls/hr IV .Q24H PRN; Protocol PRN Reason: Systolic Blood Pressure Last Titration: 05/29/18 05:00 Dose: 16.66 mcg/min, 5 mls/hr Heparin Sodium/Sodium Chloride (Heparin 73028 Units/250ml 1/2 Normal Saline) 25,000 units in 250 mls @ 10 mls/hr IV .Q24H PRN; Protocol PRN Reason: ADJUST RATE PER PROTOCOL Last Titration: 05/28/18 22:36 Dose: 13.8 mls/hr Sodium Chloride (Sodium Chloride 0.9%) 1,000 mls @ 50 mls/hr IV .Q20H [facility] Aztreonam (Azactam 1 Gm) 100 mls @ 100 mls/hr IVPB Q8 [facility]; Protocol Stop: 06/05/18 14:01 Insulin Human Lispro (Humalog High) 0 units SC ACHS [facility]; Protocol Last Admin: 05/29/18 12:56 Dose: 2 units Insulin Lispro Protam/Lispro Human (Humalog Mix 75/25) 10 units SC ACBD [facility] Last Admin: 05/29/18 09:18 Dose: 10 u Isosorbide Mononitrate (Imdur Er) 30 mg PO 0600 [facility] Last Admin: 05/29/18 05:37 Dose: 30 mg Labetalol HCl (Trandate) 100 mg PO BID [facility] Last Admin: 05/29/18 11:05 Dose: 100 mg Levalbuterol HCl (Xopenex) 1.25 mg IH [id number] [facility] Last Admin: 05/29/18 14:23 Dose: 1.25 mg Meclizine HCl (Antivert) 25 mg PO TID PRN PRN Reason: dizzy Last Admin: 05/29/18 10:57 Dose: 25 mg Metoprolol Tartrate (Lopressor) 50 mg PO Q12H [facility] Last Admin: 05/29/18 01:06 Dose: 50 mg Nitroglycerin (Nitro-Bid 2% Oint) 1 ea TOP Q8H [facility] Last Admin: 05/27/18 11:21 Dose: Not Given Silver Sulfadiazine (Silvadene 1% 25 Gm) 0 gm TP BID [facility] Last Admin: 05/28/18 18:32 Dose: Not Given - Labs Labs: 05/29/18 14:15 05/29/18 14:15 PT 16.5 SECONDS (9.4-12.5) H 05/29/18 11:00 INR 1.46 05/29/18 11:00 APTT 68.5 Seconds (26.9-38.3) H 05/29/18 10:05 - Constitutional Appears: Chronically Ill - Head Exam Head Exam: NORMAL INSPECTION - Neck Exam Neck Exam: absent: Meningismus - Respiratory Exam Respiratory Exam: Decreased Breath Sounds - Cardiovascular Exam Cardiovascular Exam: +S1, +S2 - GI/Abdominal Exam GI & Abdominal Exam: Soft. absent: Tenderness Assessment and Plan - Assessment and Plan (Free Text) Plan: Assessment left 2nd toe gangrene with distal phalanx osteomyelitis on the same toe as seen on MRI, in this patient with probable peripheral vascular disease, went for angioplasty 05/27/2018 history of right leg skin and skin structure infection - patient has had a history of infection in the same leg with fasciotomy, I and D and debridement in September 2014 HTN DM history of left knee surgery history of shoulder surgery Atrial fibrillation history of CVA Plan discussed with Podiatry - plan is for possible amputation/surgery next week - angioplasty done 3 days ago continue intermittent Vancomycin and Azactam for now will continue to monitor clinically
--- NOTE | 2018-05-30 23:50 | PN ---
DATE: 05/30/2018 SUBJECTIVE: The patient is 67 years old. Seen and examined. Sitting in chair. Complained of constipation. Complained of rectal discomfort. Did not have bowel movement for past six days. Shortness of breath is little better. PHYSICAL EXAMINATION: VITAL SIGNS: She is afebrile. Pulse 65, respirations 20, and blood pressure 165/86. LUNGS: Bilateral fair airflow. No rhonchi or crackles. breath sounds at bases. HEART: S1 and S2 audible. ABDOMEN: Soft. No rebound or guarding. NEUROLOGIC: She is awake and alert, able to communicate. EXTREMITIES: Bilateral legs, she has chronic stasis dermatitis with brownish pigmentation. Her left foot is in the dressing. LABORATORY EXAMINATION: WBC 13.8, hemoglobin 9.4, hematocrit 30, and platelet of 307. PTT is 79.4. Chemistry: Sodium 139, potassium 5, chloride 112, CO2 of 17, BUN 45, creatinine 2.6, and blood sugar of 198. Blood culture and urine cultures are negative. ASSESSMENT: 1. Constipation secondary to narcotics. 2. Congestive heart failure. 3. Acute on chronic renal failure. 4. Poorly controlled diabetes. 5. Left second toe gangrene. 6. Diabetic neuropathy. PLAN: Give her a dose of Relistor. She was given lactulose earlier this morning. If it did not work, we might have to give her enema. We will continue her on heparin. I spoke to Dr. Kim this morning. Her foot does not look good. She might transmetatarsal amputation. We will re-evaluate the patient in the a.m. We will hold heparin from tomorrow night for possible amputation of the toe or the transmetatarsal amputation on Friday. Jason Laws MD
[2018-05-31] MEDS ORDERED: Morphine 2 mg/ml ISec IVP ONE (01:10)
[2018-05-31] MEDS: Levalbuterol 1.25 MG/3 ML Inhal Soln UD IH SCH ×4 (02:47→19:33)
[2018-05-31] MEDS: Heparin25000 units/250ml 1/2NS 25,000 UNITS/250 ML BAG IV PRN (03:22)
[2018-05-31] MEDS: Aztreonam 1 Gm in NS 100mL 100 ML IVPB SCH ×3 (05:22→21:30)
[2018-05-31] MEDS ORDERED: POLYETHYLENE GLYCOL 3350 17 GM/Dose PACKET PO ONE (06:17)
[2018-05-31 07:11] LABS: BASO # 0.03 K/mm3 (0.0-2.0); BASO % 0.2 % (0.0-3.0); EOS % 0.3 % (1.5-5.0); HEMOGLOBIN 8.2 g/dL (12.0-16.0); LYMPH # 0.7 (1.2-3.4); LYMPH % 5.8 % (22.0-35.0); MEAN CELL VOLUME 77.7 fl (80.0-105.0); MEAN CORPUSCULAR HEMOGLOBIN 24.4 pg (25.0-35.0); MEAN CORPUSCULAR HGB CONC 31.4 g/dl (31.0-37.0); MEAN PLATELET VOLUME 8.8 fl (7.0-11.0); MONO # 0.5 (0.1-0.6); MONO % 3.9 % (1.0-6.0); RBC 3.36 10^6/uL (3.5-6.1); RED CELL DISTRIBUTION WIDTH 15.9 % (11.5-14.5); WHITE BLOOD COUNT 12.3 10^3/uL (4.5-11.0)
[2018-05-31 07:48] LABS: ALB/GLOB RATIO 0.9 (1.1-1.8); CALCIUM 8.6 mg/dL (8.4-10.5)
[2018-05-31] MEDS: Insulin Lispro (humaLOG) MIX 75/25(10 ml) SC SCH ×2 (08:51→17:28)
[2018-05-31] MEDS: Insulin Lispro (HUMAlog) HIGH Coverage SC SCH ×3 (08:51→17:00)
[2018-05-31] MEDS: Silver Sulfadiazine 1% Cream (25 gm) TP SCH ×2 (09:45→17:37)
[2018-05-31] MEDS: Simethicone 80 mg Chewtab PO PRN (09:48)
--- NOTE | 2018-05-31 09:49 | PN ---
DATE: 05/31/2018 SUBJECTIVE: The patient is seen lying in bed on telemetry. She feels fair. She says she had more dyspnea last evening. She remains constipated. Her blood pressures elevated at 196/78 and she was given IV hydralazine. Repeat now is 170/62. Her current medications include aspirin, Azactam, clonidine 0.3 mg t.i.d., IV heparin, insulin, Imdur 30 mg daily, Lipitor 40 mg every other day, metoprolol 50 mg every 12 hours, topical nitrates, Norvasc 10 mg daily, labetalol 200 mg b.i.d., and Xopenex. OBJECTIVE: GENERAL: She is an overweight middle-aged woman. VITAL SIGNS: Blood pressure is 170/62 with a pulse of 80 in atrial fibrillation, respirations are 16. She is afebrile. HEENT: No JVD. CHEST: Bilateral scattered rhonchi with bibasilar rales. HEART: PMI displaced laterally with systolic murmur at the lower left sternal border and apex. ABDOMEN: Soft and obese. Bowel sounds are present. EXTREMITIES: Revealed a 2+ leg edema. Left foot is dressed. DIAGNOSTIC DATA: Morning labs are pending. IMPRESSION: 1. Decompensated congestive heart failure, acute diastolic secondary to IV hydration and valvular heart disease. 2. Contrast nephropathy with last creatinine of 2.5. 3. Severe peripheral vascular disease, status post percutaneous intervention of her left superficial femoral artery, popliteal and anterior tibial arteries. 4. Gangrenous left toe. 5. Poorly controlled hypertension. 6. Diabetes. 7. Coronary artery disease, status post remote multivessel percutaneous coronary intervention. 8. Moderate mitral and tricuspid regurgitation. RECOMMENDATIONS: 1. Her current medications will be continued for now, IV and oral hydralazine will be added as needed for blood pressure control. The rest of her medications will continue. IV Lasix will be re-instituted once her creatinine has plateaued. She does appear to be volume overloaded. 2. The patient awaits left second toe amputation. We will continue to follow and make further recommendations as appropriate. Mauro Dowell MD [facility] # [id number]
--- NOTE | 2018-05-31 10:09 | CP.PCM.PN ---
<Eileen Hi - Last Filed: 05/31/18 10:53> Subjective - Date & Time of Evaluation Date of Evaluation: 05/31/18 Time of Evaluation: 10:09 - Subjective Subjective: Podiatry Progress Note: Dr. Kim 67F patient seen and evaluated this morning for L second digit gangrene. Patient resting comfortably and in NAD. She denies any pain to the L foot today. Patient is aware of planned surgery tomorrow and post operative course. Denies N/V/F/CP. Objective - Vital Signs/Intake and Output Vital Signs (last 24 hours): Temp Pulse Resp BP Pulse Ox 99.0 F 84 20 146/56 L 93 L 05/31/18 05:57 05/31/18 09:48 05/31/18 05:57 05/31/18 09:48 05/31/18 05:57 Intake and Output: 05/31/18 05/31/18 06:59 18:59 Intake Total 394 68 Output Total 500 Balance -106 68 - Medications Medications: Current Medications Acetaminophen (Tylenol 325mg Tab) 650 mg PO Q6H PRN PRN Reason: Fever >100.4 F Last Admin: 05/30/18 01:30 Dose: 650 mg Acetaminophen (Tylenol 325mg Tab) 650 mg PO Q4H PRN PRN Reason: Pain, moderate (4-7) Last Admin: 05/30/18 22:44 Dose: 650 mg Amlodipine Besylate (Norvasc) 10 mg PO DAILY [facility] Last Admin: 05/31/18 09:48 Dose: 10 mg Aspirin (Aspirin Chewable) 81 mg PO DAILY [facility] Last Admin: 05/31/18 09:48 Dose: 81 mg Atorvastatin Calcium (Lipitor) 40 mg PO QOTHERDAY [facility] Last Admin: 05/31/18 09:48 Dose: 40 mg Clonidine HCl (Catapres) 0.3 mg PO TID [facility] Last Admin: 05/31/18 09:48 Dose: 0.3 mg Dextrose (Dextrose 50% Inj) 50 ml IVP ONCE PRN PRN Reason: Hypoglycemia Furosemide (Lasix) 40 mg IV BID [facility] Last Admin: 05/28/18 17:50 Dose: 40 mg Glipizide (Glucotrol) 10 mg PO DAILY [facility] Last Admin: 05/27/18 10:00 Dose: Not Given Hydralazine HCl (Apresoline) 10 mg IV Q6H PRN PRN Reason: Systolic Blood Pressure Hydralazine HCl (Apresoline) 25 mg PO Q6H [facility] Last Admin: 05/31/18 06:36 Dose: 25 mg Aztreonam (Azactam 1 Gm) 100 mls @ 100 mls/hr IVPB Q8 [facility]; Protocol Stop: 06/05/18 14:01 Last Admin: 05/31/18 05:22 Dose: 100 mls/hr Heparin Sodium/Sodium Chloride (Heparin 54219 Units/250ml 1/2 Normal Saline) 25,000 units in 250 mls @ 16.248 mls/hr IV .[id number] PRN; Protocol PRN Reason: ADJUST RATE PER PROTOCOL Last Titration: 05/31/18 08:38 Dose: 15 units/kg/hr, 13.54 mls/hr Insulin Human Lispro (Humalog High) 0 units SC ACHS [facility]; Protocol Last Admin: 05/31/18 08:51 Dose: 2 units Insulin Lispro Protam/Lispro Human (Humalog Mix 75/25) 10 units SC ACBD [facility] Last Admin: 05/31/18 08:51 Dose: 10 u Isosorbide Mononitrate (Imdur Er) 30 mg PO 0600 [facility] Last Admin: 05/31/18 05:23 Dose: 30 mg Labetalol HCl (Trandate) 200 mg PO BID [facility] Last Admin: 05/31/18 09:47 Dose: 200 mg Levalbuterol HCl (Xopenex) 1.25 mg IH [id number] [facility] Last Admin: 05/31/18 09:23 Dose: Not Given Meclizine HCl (Antivert) 25 mg PO TID PRN PRN Reason: dizzy Last Admin: 05/30/18 11:26 Dose: 25 mg Metoprolol Tartrate (Lopressor) 50 mg PO Q12H [facility] Last Admin: 05/30/18 01:30 Dose: 50 mg Nitroglycerin (Nitro-Bid 2% Oint) 1 ea TOP Q8H [facility] Last Admin: 05/27/18 11:21 Dose: Not Given Silver Sulfadiazine (Silvadene 1% 25 Gm) 0 gm TP BID [facility] Last Admin: 05/30/18 18:14 Dose: Not Given Simethicone (Mylicon Chew Tab) 80 mg PO HS PRN PRN Reason: GI distress Last Admin: 05/31/18 09:48 Dose: 80 mg - Labs Labs: 05/31/18 05:00 05/31/18 05:00 PT 16.5 SECONDS (9.4-12.5) H 05/29/18 11:00 INR 1.46 05/29/18 11:00 APTT 104.1 Seconds (26.9-38.3) H* 05/31/18 05:00 - Constitutional Appears: Non-toxic, No Acute Distress - Head Exam Head Exam: ATRAUMATIC, NORMOCEPHALIC - Extremities Exam Additional comments: LLE focused VASC: DP and PT pulses nonpalpable; cap refill <3 seconds to digits 1,3,4,5 unable to assess 2nd digit; temp gradient warm to cool, 2nd digit cold to touch; no edema noted DERM: second digit gangrenous, completely black in color from the PIPJ distally, + malodor; no other dermatological pathology ORTHO: Mild tenderness to palpation 2nd digit NEURO: gross and protective sensation mildly diminished Assessment and Plan - Assessment and Plan (Free Text) Assessment: 67F patient with left second digit gangrene and PVD; plan for surgical intervention tomorrow Plan: Patient seen and evaluated Discussed with WBC 12.3 Left foot XR: negative for OM LLE MRI: acute OM distal phalanx 2nd digit Successful revascularization with Dr. Marrufo Vascular clearance for surgery, surgery scheduled for Friday at 4:00 PM Heparin stopped NPO after midnight Please medically optimize patient Continue local wound care: betadine, DSD Podiatry will continue to follow <Gil Kim - Last Filed: 05/31/18 12:15> Objective - Vital Signs/Intake and Output Vital Signs (last 24 hours): Temp Pulse Resp BP Pulse Ox 99.0 F 84 20 146/56 L 93 L 05/31/18 05:57 05/31/18 09:48 05/31/18 05:57 05/31/18 09:48 05/31/18 05:57 Intake and Output: 05/31/18 05/31/18 06:59 18:59 Intake Total 394 90 Output Total 500 Balance -106 90 - Medications Medications: Current Medications Acetaminophen (Tylenol 325mg Tab) 650 mg PO Q6H PRN PRN Reason: Fever >100.4 F Last Admin: 05/30/18 01:30 Dose: 650 mg Acetaminophen (Tylenol 325mg Tab) 650 mg PO Q4H PRN PRN Reason: Pain, moderate (4-7) Last Admin: 05/30/18 22:44 Dose: 650 mg Amlodipine Besylate (Norvasc) 10 mg PO DAILY [facility] Last Admin: 05/31/18 09:48 Dose: 10 mg Aspirin (Aspirin Chewable) 81 mg PO DAILY [facility] Last Admin: 05/31/18 09:48 Dose: 81 mg Atorvastatin Calcium (Lipitor) 40 mg PO QOTHERDAY [facility] Last Admin: 05/31/18 09:48 Dose: 40 mg Clonidine HCl (Catapres) 0.3 mg PO TID [facility] Last Admin: 05/31/18 09:48 Dose: 0.3 mg Dextrose (Dextrose 50% Inj) 50 ml IVP ONCE PRN PRN Reason: Hypoglycemia Furosemide (Lasix) 40 mg IV BID [facility] Last Admin: 05/28/18 17:50 Dose: 40 mg Glipizide (Glucotrol) 10 mg PO DAILY [facility] Last Admin: 05/27/18 10:00 Dose: Not Given Hydralazine HCl (Apresoline) 10 mg IV Q6H PRN PRN Reason: Systolic Blood Pressure Hydralazine HCl (Apresoline) 25 mg PO Q6H [facility] Last Admin: 05/31/18 06:36 Dose: 25 mg Aztreonam (Azactam 1 Gm) 100 mls @ 100 mls/hr IVPB Q8 [facility]; Protocol Stop: 06/05/18 14:01 Last Admin: 05/31/18 05:22 Dose: 100 mls/hr Heparin Sodium/Sodium Chloride (Heparin 57253 Units/250ml 1/2 Normal Saline) 2 5,000 units in 250 mls @ 16.248 mls/hr IV .[id number] PRN; Protocol PRN Reason: ADJUST RATE PER PROTOCOL Last Titration: 05/31/18 10:20 Dose: 0 units/kg/hr, 0 mls/hr Insulin Human Lispro (Humalog High) 0 units SC ACHS [facility]; Protocol Last Admin: 05/31/18 08:51 Dose: 2 units Insulin Lispro Protam/Lispro Human (Humalog Mix 75/25) 10 units SC ACBD [facility] Last Admin: 05/31/18 08:51 Dose: 10 u Isosorbide Mononitrate (Imdur Er) 30 mg PO 0600 [facility] Last Admin: 05/31/18 05:23 Dose: 30 mg Labetalol HCl (Trandate) 200 mg PO BID [facility] Last Admin: 05/31/18 09:47 Dose: 200 mg Levalbuterol HCl (Xopenex) 1.25 mg IH [id number] [facility] Last Admin: 05/31/18 09:23 Dose: Not Given Meclizine HCl (Antivert) 25 mg PO TID PRN PRN Reason: dizzy Last Admin: 05/30/18 11:26 Dose: 25 mg Metoprolol Tartrate (Lopressor) 50 mg PO Q12H [facility] Last Admin: 05/30/18 01:30 Dose: 50 mg Nitroglycerin (Nitro-Bid 2% Oint) 1 ea TOP Q8H [facility] Last Admin: 05/27/18 11:21 Dose: Not Given Silver Sulfadiazine (Silvadene 1% 25 Gm) 0 gm TP BID [facility] Last Admin: 05/30/18 18:14 Dose: Not Given Simethicone (Mylicon Chew Tab) 80 mg PO PCHS PRN PRN Reason: GI distress Last Admin: 05/31/18 09:48 Dose: 80 mg - Labs Labs: 05/31/18 05:00 05/31/18 05:00 PT 16.5 SECONDS (9.4-12.5) H 05/29/18 11:00 INR 1.46 05/29/18 11:00 APTT 104.1 Seconds (26.9-38.3) H* 05/31/18 05:00 Attending/Attestation - Attestation I have personally seen and examined this patient.: Yes I have fully participated in the care of the patient.: Yes I have reviewed all pertinent clinical information, including history, physical exam and plan: Yes
[2018-05-31] MEDS ORDERED: Magnesium Citrate Oral SOL (300 ml) PO ONE (11:54)
--- NOTE | 2018-05-31 18:39 | PN ---
DATE: 05/31/2018 SUBJECTIVE: The patient is 67- year-old, seen and examined. Complained of constipation, complained of not having any appetite, some rectal discomfort. PHYSICAL EXAMINATION: VITAL SIGNS: The patient is afebrile, pulse 81, respirations 20, blood pressure 153/53. LUNGS: Bilateral diffuse decreased breath sounds. HEART: S1 and S2 audible. ABDOMEN: Soft and nontender. No rebound. No guarding. NEUROLOGIC: The patient is awake, alert, oriented, able to communicate. She has large ventral hernia, otherwise no palpable discomfort. EXTREMITIES: Bilateral legs, chronic stasis dermatitis and brownish pigmentation. Her left foot is in the dressing. LABORATORY DATA: WBC 12.3, hemoglobin 8.2, hematocrit 26.1, and platelet of 251. PTT is 104. Chemistry: Sodium 138, potassium 5.0, chloride 113, CO2 of 16, BUN 55, creatinine 2.9, blood sugar of 130. Blood culture and urine cultures are negative. ASSESSMENT: 1. Left foot second toe gangrene. 2. Severe peripheral vascular disease. 3. Congestive heart failure. 4. Chronic obstructive pulmonary disease. 5. Constipation. 6. Peripheral vascular disease. 7. Left second toe osteomyelitis. 8. Anemia. 9. Left superficial femoral artery, bilateral occlusive disease. PLAN: We will give her a dose of Relistor. Give her a magnesium citrate, also transfused one pack RBC. Discontinue heparin tonight for possible surgical intervention tomorrow. Jason Laws MD
[2018-05-31] MEDS ORDERED: Mineral Oil Enema 135 ml RC ONE (21:11)
--- NOTE | 2018-05-31 21:19 | PN ---
DATE: 05/31/2018 SUBJECTIVE: The patient is in bed, in no acute distress, was seen earlier today in 262. PHYSICAL EXAMINATION: VITAL SIGNS: Temperature is 97, blood pressure is 150/50, respiratory rate of 22, heart rate of 75. HEENT: Unremarkable. NECK: Supple. LUNGS: Have decreased breath sounds. HEART: Normal S1 and S2. ABDOMEN: Soft, nontender. LABORATORY EXAMINATION: Reveals a white count of 12,300, hemoglobin of 8, platelets of 251. BUN of 55, creatinine of 2.9. The urinalysis is noted. Microbiology reveals the blood cultures are negative. Urine culture is negative. Nasal MRSA is negative. Review of orders reveals the patient to be on aztreonam. ASSESSMENT AND PLAN: This is a 67-year-old with a left second toe gangrene in distal phalanx, osteomyelitis in the same toe seen on the MRI, diabetes, hypertension, history of infection in the same leg with fasciotomy. Currently on intermittent vancomycin and aztreonam. Dr. Kim's note is reviewed. We will order a vancomycin random level in the morning. We will follow with you. Yemi Aguilar MD
[2018-06-01] MEDS: Insulin Lispro (HUMAlog) HIGH Coverage SC SCH ×5 (00:26→22:05)
[2018-06-01] MEDS: Levalbuterol 1.25 MG/3 ML Inhal Soln UD IH SCH ×5 (01:21→20:32)
--- NOTE | 2018-06-01 05:51 | CP.PCM.PN ---
Subjective - Date & Time of Evaluation Date of Evaluation: 06/01/18 Time of Evaluation: 05:46 - Subjective Subjective: Was called to bedside to eval pt due to RN report that pt had worsening hypoxia with O2 sat down to 83%. Per RN pt refused dose of Xopenex treatment overnight. Pt AAOx3 at bedside, speaking in full sentences, stating that she is feeling constipated currently. STAT CXR and pro-BNP ordered. AM CBC and CMP labs pending. Pt given stat dose of Xopenex treatment. O2 sat improved to 91-92% while on 5 L NC. Cont to monitor overnight. Informed RN to notify Dr. Laws and rest of primary team about episode. Objective - Vital Signs/Intake and Output Vital Signs (last 24 hours): Temp Pulse Resp BP Pulse Ox 98.2 F 89 20 155/59 H 94 L 06/01/18 00:01 06/01/18 02:00 06/01/18 00:01 06/01/18 00:01 06/01/18 00:01 Intake and Output: 05/31/18 06/01/18 18:59 06:59 Intake Total 1006 120 Output Total 250 Balance 1006 -130 - Medications Medications: Current Medications Acetaminophen (Tylenol 325mg Tab) 650 mg PO Q6H PRN PRN Reason: Fever >100.4 F Last Admin: 05/30/18 01:30 Dose: 650 mg Acetaminophen (Tylenol 325mg Tab) 650 mg PO Q4H PRN PRN Reason: Pain, moderate (4-7) Last Admin: 05/30/18 22:44 Dose: 650 mg Amlodipine Besylate (Norvasc) 10 mg PO DAILY [facility] Last Admin: 05/31/18 09:48 Dose: 10 mg Aspirin (Aspirin Chewable) 81 mg PO DAILY [facility] Last Admin: 05/31/18 09:48 Dose: 81 mg Atorvastatin Calcium (Lipitor) 40 mg PO QOTHERDAY [facility] Last Admin: 05/31/18 09:48 Dose: 40 mg Clonidine HCl (Catapres) 0.3 mg PO TID [facility] Last Admin: 05/31/18 17:54 Dose: 0.3 mg Dextrose (Dextrose 50% Inj) 50 ml IVP ONCE PRN PRN Reason: Hypoglycemia Furosemide (Lasix) 40 mg IV BID [facility] Last Admin: 05/28/18 17:50 Dose: 40 mg Glipizide (Glucotrol) 10 mg PO DAILY [facility] Last Admin: 05/27/18 10:00 Dose: Not Given Hydralazine HCl (Apresoline) 10 mg IV Q6H PRN PRN Reason: Systolic Blood Pressure Hydralazine HCl (Apresoline) 25 mg PO Q6H [facility] Last Admin: 05/31/18 23:41 Dose: 25 mg Aztreonam (Azactam 1 Gm) 100 mls @ 100 mls/hr IVPB Q8 [facility]; Protocol Stop: 06/05/18 14:01 Last Admin: 05/31/18 21:30 Dose: 100 mls/hr Heparin Sodium/Sodium Chloride (Heparin 09730 Units/250ml 1/2 Normal Saline) 25,000 units in 250 mls @ 16.248 mls/hr IV .[id number] PRN; Protocol PRN Reason: ADJUST RATE PER PROTOCOL Last Titration: 05/31/18 10:20 Dose: 0 units/kg/hr, 0 mls/hr Insulin Human Lispro (Humalog High) 0 units SC ACHS [facility]; Protocol Last Admin: 06/01/18 00:26 Dose: Not Given Insulin Lispro Protam/Lispro Human (Humalog Mix 75/25) 10 units SC ACBD [facility] Last Admin: 05/31/18 17:28 Dose: Not Given Isosorbide Mononitrate (Imdur Er) 30 mg PO 0600 [facility] Last Admin: 05/31/18 05:23 Dose: 30 mg Labetalol HCl (Trandate) 200 mg PO BID [facility] Last Admin: 05/31/18 17:56 Dose: 200 mg Levalbuterol HCl (Xopenex) 1.25 mg IH [id number] [facility] Last Admin: 06/01/18 05:37 Dose: 1.25 mg Meclizine HCl (Antivert) 25 mg PO TID PRN PRN Reason: dizzy Last Admin: 05/30/18 11:26 Dose: 25 mg Metoprolol Tartrate (Lopressor) 50 mg PO Q12H [facility] Last Admin: 05/30/18 01:30 Dose: 50 mg Nitroglycerin (Nitro-Bid 2% Oint) 1 ea TOP Q8H [facility] Last Admin: 05/27/18 11:21 Dose: Not Given Silver Sulfadiazine (Silvadene 1% 25 Gm) 0 gm TP BID [facility] Last Admin: 05/31/18 17:37 Dose: Not Given Simethicone (Mylicon Chew Tab) 80 mg PO HS PRN PRN Reason: GI distress Last Admin: 05/31/18 09:48 Dose: 80 mg - Labs Labs: 05/31/18 05:00 05/31/18 05:00 PT 16.5 SECONDS (9.4-12.5) H 05/29/18 11:00 INR 1.46 05/29/18 11:00 APTT 104.1 Seconds (26.9-38.3) H* 05/31/18 05:00
[2018-06-01] MEDS: Aztreonam 1 Gm in NS 100mL 100 ML IVPB SCH ×3 (05:53→22:00)
[2018-06-01 06:30] LABS: ARTERIAL BLOOD GAS HCO3 18.3 mmol/L (21-28); ARTERIAL BLOOD GAS HEMOGLOBIN 9.4 g/dL (11.7-17.4); ARTERIAL BLOOD GAS O2 CAPACITY 12.8 mL/dl (16-24); ARTERIAL BLOOD GAS O2 CONTENT 11.7 ML/dl (15-23); ARTERIAL BLOOD GAS O2 SAT 91.5 % (95-98); ARTERIAL BLOOD GAS PCO2 27 mm/Hg (35-45); ARTERIAL BLOOD GAS PH 7.44 (7.35-7.45); ARTERIAL BLOOD GAS TCO2 19.1 mmol.L (22-28)
--- NOTE | 2018-06-01 06:51 | CP.PCM.PN ---
<Sera Maciel - Last Filed: 06/01/18 11:44> Subjective - Date & Time of Evaluation Date of Evaluation: 06/01/18 Time of Evaluation: 11:40 - Subjective Subjective: Pgy[facility] Medicine progress note for Dr. Watkins Patient seen and examined at bedside. Overnight and AM events noted. As per nursing patient has been complaining of abdominal pain overnight and has had multiple episodes of emesis. She has been NPO overnight for OR today which was cancelled as per primary. Patient reports a small BM last night however states she feels like she has a lot of stool but has been unable to have a good BM despite multiple enemas and Mag citrate. Patient reported pain is diffuse and tender to touch. Denied any urinary complaints. Objective - Vital Signs/Intake and Output Vital Signs (last 24 hours): Temp Pulse Resp BP Pulse Ox 98.2 F 95 H 20 162/51 H 94 L 06/01/18 00:01 06/01/18 06:03 06/01/18 00:01 06/01/18 06:03 06/01/18 00:01 Intake and Output: 05/31/18 06/01/18 18:59 06:59 Intake Total 1006 120 Output Total 1050 Balance 1006 -930 - Medications Medications: Current Medications Acetaminophen (Tylenol 325mg Tab) 650 mg PO Q6H PRN PRN Reason: Fever >100.4 F Last Admin: 05/30/18 01:30 Dose: 650 mg Acetaminophen (Tylenol 325mg Tab) 650 mg PO Q4H PRN PRN Reason: Pain, moderate (4-7) Last Admin: 05/30/18 22:44 Dose: 650 mg Amlodipine Besylate (Norvasc) 10 mg PO DAILY [facility] Last Admin: 05/31/18 09:48 Dose: 10 mg Aspirin (Aspirin Chewable) 81 mg PO DAILY [facility] Last Admin: 05/31/18 09:48 Dose: 81 mg Atorvastatin Calcium (Lipitor) 40 mg PO QOTHERDAY [facility] Last Admin: 05/31/18 09:48 Dose: 40 mg Clonidine HCl (Catapres) 0.3 mg PO TID [facility] Last Admin: 05/31/18 17:54 Dose: 0.3 mg Dextrose (Dextrose 50% Inj) 50 ml IVP ONCE PRN PRN Reason: Hypoglycemia Furosemide (Lasix) 40 mg IV BID [facility] Last Admin: 05/28/18 17:50 Dose: 40 mg Glipizide (Glucotrol) 10 mg PO DAILY [facility] Last Admin: 05/27/18 10:00 Dose: Not Given Hydralazine HCl (Apresoline) 10 mg IV Q6H PRN PRN Reason: Systolic Blood Pressure Last Admin: 06/01/18 06:03 Dose: 10 mg Hydralazine HCl (Apresoline) 25 mg PO Q6H [facility] Last Admin: 06/01/18 05:52 Dose: Not Given Aztreonam (Azactam 1 Gm) 100 mls @ 100 mls/hr IVPB Q8 [facility]; Protocol Stop: 06/05/18 14:01 Last Admin: 06/01/18 05:53 Dose: 100 mls/hr Heparin Sodium/Sodium Chloride (Heparin 39777 Units/250ml 1/2 Normal Saline) 25,000 units in 250 mls @ 16.248 mls/hr IV .[id number] PRN; Protocol PRN Reason: ADJUST RATE PER PROTOCOL Last Titration: 05/31/18 10:20 Dose: 0 units/kg/hr, 0 mls/hr Insulin Human Lispro (Humalog High) 0 units SC ACHS [facility]; Protocol Last Admin: 06/01/18 00:26 Dose: Not Given Insulin Lispro Protam/Lispro Human (Humalog Mix 75/25) 10 units SC ACBD [facility] Last Admin: 05/31/18 17:28 Dose: Not Given Isosorbide Mononitrate (Imdur Er) 30 mg PO 0600 [facility] Last Admin: 06/01/18 05:52 Dose: Not Given Labetalol HCl (Trandate) 200 mg PO BID [facility] Last Admin: 05/31/18 17:56 Dose: 200 mg Levalbuterol HCl (Xopenex) 1.25 mg IH [id number] [facility] Last Admin: 06/01/18 05:37 Dose: 1.25 mg Meclizine HCl (Antivert) 25 mg PO TID PRN PRN Reason: dizzy Last Admin: 05/30/18 11:26 Dose: 25 mg Metoprolol Tartrate (Lopressor) 50 mg PO Q12H [facility] Last Admin: 05/30/18 01:30 Dose: 50 mg Nitroglycerin (Nitro-Bid 2% Oint) 1 ea TOP Q8H [facility] Last Admin: 05/27/18 11:21 Dose: Not Given Silver Sulfadiazine (Silvadene 1% 25 Gm) 0 gm TP BID [facility] Last Admin: 05/31/18 17:37 Dose: Not Given Simethicone (Mylicon Chew Tab) 80 mg PO HS PRN PRN Reason: GI distress Last Admin: 05/31/18 09:48 Dose: 80 mg - Labs Labs: 05/31/18 05:00 05/31/18 05:00 PT 16.5 SECONDS (9.4-12.5) H 05/29/18 11:00 INR 1.46 05/29/18 11:00 APTT 104.1 Seconds (26.9-38.3) H* 05/31/18 05:00 - Constitutional Appears: In Acute Distress (pain), Chronically Ill - Head Exam Head Exam: ATRAUMATIC, NORMAL INSPECTION, NORMOCEPHALIC - Eye Exam Eye Exam: Normal appearance. absent: Conjunctival injection, Scleral icterus - ENT Exam ENT Exam: Mucous Membranes Dry - Respiratory Exam Respiratory Exam: Decreased Breath Sounds, NORMAL BREATHING PATTERN. absent: Accessory Muscle Use, Rales, Rhonchi, Wheezes - Cardiovascular Exam Cardiovascular Exam: Tachycardia, +S1, +S2 - GI/Abdominal Exam GI & Abdominal Exam: Distended, Tenderness (diffuse) Additional comments: hernia noted - Extremities Exam Extremities Exam: Pedal Edema Additional comments: L foot wrapped in dressings as per podiatry - Neurological Exam Neurological Exam: Alert, Awake, Oriented x3 - Psychiatric Exam Psychiatric exam: Anxious - Skin Skin Exam: Dry, Intact Assessment and Plan - Assessment and Plan (Free Text) Assessment: - Abdominal pain and multiple episodes of emesis- concern for obstruction - Worsening GILBERTO on CKD3b likely contrast induced nephropathy - Constipation - Hypochromic Microcytic Anemia - CKD 3b - Hypertension Plan: Patient's blood work, vitals, and imaging noted in chart. STAT CT Abd/pelvis without contrast ordered and repeat surgical consult requested to r/o obstruction. Discussed with Dr. Khalida TORIBIO who agrees with CT and surgery consult. Keep patient NPO at this time. Fluids on hold in light of patient's elevated BP. Patient has received 2 fleet enemas and mag citrate. Patient should NOT be given any more due to kidney function. If needed can order tap water enema. Patient worsening creatinine and GFR concerning; may require dialysis if does not improve. H&H stable at this time. Will continue to monitor closely. Discussed with Dr. Roland Maciel PGY3 <Kailash Watkins S - Last Filed: 06/01/18 15:57> Objective - Vital Signs/Intake and Output Vital Signs (last 24 hours): Temp Pulse Resp BP Pulse Ox 97.8 F 94 H 20 190/77 H 93 L 06/01/18 06:00 06/01/18 11:47 06/01/18 06:00 06/01/18 11:47 06/01/18 06:00 Intake and Output: 06/01/18 06/01/18 06:59 18:59 Intake Total 120 200 Output Total 1050 Balance -930 200 - Medications Medications: Current Medications Acetaminophen (Tylenol 325mg Tab) 650 mg PO Q6H PRN PRN Reason: Fever >100.4 F Last Admin: 05/30/18 01:30 Dose: 650 mg Acetaminophen (Tylenol 325mg Tab) 650 mg PO Q4H PRN PRN Reason: Pain, moderate (4-7) Last Admin: 05/30/18 22:44 Dose: 650 mg Amlodipine Besylate (Norvasc) 10 mg PO DAILY [facility] Last Admin: 06/01/18 10:17 Dose: Not Given Aspirin (Aspirin Chewable) 81 mg PO DAILY [facility] Last Admin: 06/01/18 10:17 Dose: Not Given Atorvastatin Calcium (Lipitor) 40 mg PO QOTHERDAY [facility] Last Admin: 05/31/18 09:48 Dose: 40 mg Clonidine HCl (Catapres) 0.3 mg PO TID [facility] Last Admin: 06/01/18 14:27 Dose: Not Given Dextrose (Dextrose 50% Inj) 50 ml IVP ONCE PRN PRN Reason: Hypoglycemia Furosemide (Lasix) 40 mg IV BID [facility] Last Admin: 06/01/18 10:17 Dose: Not Given Glipizide (Glucotrol) 10 mg PO DAILY [facility] Last Admin: 05/27/18 10:00 Dose: Not Given Hydralazine HCl (Apresoline) 10 mg IV Q6H PRN PRN Reason: Systolic Blood Pressure Last Admin: 06/01/18 11:47 Dose: 10 mg Hydralazine HCl (Apresoline) 25 mg PO Q6H [facility] Last Admin: 06/01/18 12:26 Dose: Not Given Aztreonam (Azactam 1 Gm) 100 mls @ 100 mls/hr IVPB Q8 [facility]; Protocol Stop: 06/05/18 14:01 Last Admin: 06/01/18 05:53 Dose: 100 mls/hr Heparin Sodium/Sodium Chloride (Heparin 23867 Units/250ml 1/2 Normal Saline) 25,000 units in 250 mls @ 16.248 mls/hr IV .[id number] PRN; Protocol PRN Reason: ADJUST RATE PER PROTOCOL Last Titration: 05/31/18 10:20 Dose: 0 units/kg/hr, 0 mls/hr Sodium Chloride (Sodium Chloride 0.45%) 1,000 mls @ 50 mls/hr IV .Q20H [facility] Last Admin: 06/01/18 11:36 Dose: 50 mls/hr Metronidazole (Flagyl) 500 mg in 100 mls @ 100 mls/hr IVPB Q8 [facility]; Protocol Last Admin: 06/01/18 14:36 Dose: 100 mls/hr Linezolid (Zyvox 600mg/300ml D5w) 600 mg in 300 mls @ 200 mls/hr IVPB Q12 [facility]; Protocol Stop: 06/08/18 13:31 Insulin Human Lispro (Humalog High) 0 units SC ACHS [facility]; Protocol Last Admin: 06/01/18 11:37 Dose: Not Given Insulin Lispro Protam/Lispro Human (Humalog Mix 75/25) 10 units SC ACBD [facility] Last Admin: 06/01/18 08:31 Dose: Not Given Isosorbide Mononitrate (Imdur Er) 30 mg PO 0600 [facility] Last Admin: 06/01/18 05:52 Dose: Not Given Labetalol HCl (Trandate) 200 mg PO BID [facility] Last Admin: 06/01/18 10:18 Dose: Not Given Levalbuterol HCl (Xopenex) 1.25 mg IH [id number] [facility] Last Admin: 06/01/18 13:49 Dose: 1.25 mg Meclizine HCl (Antivert) 25 mg PO TID PRN PRN Reason: dizzy Last Admin: 05/30/18 11:26 Dose: 25 mg Metoprolol Tartrate (Lopressor) 50 mg PO Q12H [facility] Last Admin: 05/30/18 01:30 Dose: 50 mg Nitroglycerin (Nitro-Bid 2% Oint) 1 ea TOP Q8H [facility] Last Admin: 05/27/18 11:21 Dose: Not Given Ondansetron HCl (Zofran Inj) 4 mg IVP Q6H PRN PRN Reason: Nausea/Vomiting Pantoprazole Sodium (Protonix Inj) 40 mg IVP DAILY [facility] Last Admin: 06/01/18 14:36 Dose: 40 mg Silver Sulfadiazine (Silvadene 1% 25 Gm) 0 gm TP BID [facility] Last Admin: 06/01/18 10:18 Dose: Not Given Simethicone (Mylicon Chew Tab) 80 mg PO PCHS PRN PRN Reason: GI distress Last Admin: 05/31/18 09:48 Dose: 80 mg - Labs Labs: 06/01/18 09:25 06/01/18 09:25 PT 16.5 SECONDS (9.4-12.5) H 05/29/18 11:00 INR 1.46 05/29/18 11:00 APTT 33.7 Seconds (26.9-38.3) 06/01/18 09:25 Assessment and Plan - Assessment and Plan (Free Text) Plan: Pt seen and examined by me. I have reviewed the note of the medical technologist chief and I agree with it. I have discussed the assessment and plan with the resident. I have reviewed the medications and the last labs.Pt with GILBERTO and Cr is continuing to worse. OR should be placed on hold while pt's Cr is worsening due to contrast nephropathy. Would avoid fleet enema due ot phops and MgCitrate due to Mg. With GILBERTO the phosp and Mg will be increased. Spoke to Dr Kim. Pt with GILBERTO. Updated pt about the kidney function worsening and has not improved. IV not needed at this time pt is euvolemic. If GILBERTO does not improve pt may need HD.
[2018-06-01] MEDS: Insulin Lispro (humaLOG) MIX 75/25(10 ml) SC SCH ×2 (08:31→16:33)
[2018-06-01] MEDS ORDERED: Peg-Electrolyte Oral Soln 4L (Golytely) PO ONE (09:00)
[2018-06-01 09:41] LABS: BASO # 0.02 K/mm3 (0.0-2.0); BASO % 0.1 % (0.0-3.0); EOS % 0.2 % (1.5-5.0); HEMOGLOBIN 9.7 g/dL (12.0-16.0); LYMPH # 0.9 (1.2-3.4); LYMPH % 4.8 % (22.0-35.0); MEAN CELL VOLUME 78.4 fl (80.0-105.0); MEAN CORPUSCULAR HEMOGLOBIN 25.3 pg (25.0-35.0); MEAN CORPUSCULAR HGB CONC 32.2 g/dl (31.0-37.0); MEAN PLATELET VOLUME 8.7 fl (7.0-11.0); MONO # 0.4 (0.1-0.6); MONO % 2.3 % (1.0-6.0); PLATELET COUNT 315 10^3/uL (120.0-450.0); RBC 3.84 10^6/uL (3.5-6.1); RED CELL DISTRIBUTION WIDTH 16.8 % (11.5-14.5); WHITE BLOOD COUNT 18.9 10^3/uL (4.5-11.0)
[2018-06-01 09:58] LABS: ALB/GLOB RATIO 0.9 (1.1-1.8); ALBUMIN 3.5 g/dL (3.0-4.8); CALCIUM 9.4 mg/dL (8.4-10.5)
[2018-06-01 10:08] LABS: LYMPHOCYTE 2 % (22.0-35.0); MONOCYTE 1 % (1.0-6.0); MYELOCYTE 1 %; NEUTROPHIL 96 % (50.0-70.0); PLATELET ESTIMATE NORMAL (NORMAL)
--- NOTE | 2018-06-01 10:08 | PN ---
DATE: 06/01/2018 SUBJECTIVE: The patient is seen lying in bed on telemetry. She is complaining of worsening abdominal discomfort and severe constipation. She has significant dyspnea earlier this morning and was given respiratory treatment. Chest x-ray was performed revealing bilateral congestive changes. Her creatinine has risen to 2.9, repeat is pending this morning. MEDICATIONS: Her current medications include Antivert, hydralazine, aspirin, Azactam, Catapres, IV heparin, insulin, Imdur, Lipitor, metoprolol 50 mg b.i.d., Mylicon, Norvasc, labetalol 200 mg b.i.d. and Xopenex. OBJECTIVE: GENERAL: She is an obese, middle-aged woman who appears to be in discomfort from her abdominal pain. VITAL SIGNS: Her blood pressure is 160/50 with a pulse of 96 in atrial fibrillation and respirations are 16. HEENT: No JVD. CHEST: Bibasilar rales. HEART: PMI displaced laterally with systolic murmur at the apex. ABDOMEN: Soft, distended with diffuse tenderness. Bowel sounds are present. EXTREMITIES: 2+ lower extremity edema. The left foot is dressed. DIAGNOSTIC DATA: Arterial blood gas showed pH of 7.44, pCO2 of 27, pO2 of 51. Her last BUN and creatinine were 55 and 2.9 with potassium 5.0. Hemoglobin and hematocrit 8.2 and 26.1, white count 12.3, platelet count of 251,000, MCV is 78. Chest x-ray reveals enlarged cardiac silhouette with bilateral congestive changes. IMPRESSION: 1. Decompensated congestive heart failure, acute diastolic, remains volume overloaded. 2. Contrast nephropathy with rising creatinine to 2.9. 3. Severe peripheral vascular disease with left toe gangrene, status post percutaneous intervention of her left superficial femora artery, popliteal and anterior tibial arteries. 4. History of diabetes. 5. Hypertension, suboptimally controlled. 6. Coronary artery disease, status post remote multivessel percutaneous coronary intervention. 7. Moderate mitral and tricuspid regurgitation. RECOMMENDATIONS: At this time, resumption of diuretic therapy appears appropriate. IV heparin will be considered to continue for now. An additional laxative therapy should be considered. If her constipation persists, GI evaluation should be considered. Followup of her anemia is recommended as well. It would be preferable to defer her toe amputation until she is more clinically stable. We will continue to follow any further recommendations as appropriate. Mauro Dowell MD MTDSandra
[2018-06-01] MEDS: Silver Sulfadiazine 1% Cream (25 gm) TP SCH ×2 (10:18→17:22)
--- NOTE | 2018-06-01 10:26 | RAD ---
Date of service: 06/01/2018 HISTORY: hypoxia COMPARISON: 05/29/2018 FINDINGS: LUNGS: No active pulmonary disease. PLEURA: Small left effusion CARDIOVASCULAR: Aortic calcification Moderate cardiomegaly severe vascular congestion showing slight improvement OSSEOUS STRUCTURES: No significant abnormalities. VISUALIZED UPPER ABDOMEN: Normal. OTHER FINDINGS: None. IMPRESSION: Severe vascular congestion showing slight improvement
[2018-06-01] MEDS ORDERED: Sodium Chloride 0.45% 1,000 ML IV SCH (11:00)
--- NOTE | 2018-06-01 11:46 | PN ---
DATE: 05/30/2018 SUBJECTIVE: A 67-year-old female seen at bedside for continued evaluation and management of a gangrenous left second digit that is now showing signs of possible underlying abscess formation. The patient is status post angio 3 days. She is currently on heparin drip. The patient is complaining of painful constipation, lactulose was ordered this morning. She has been afebrile. The patient's laboratory findings reveal white count of 13.8, hemoglobin of 9.4, hematocrit of 30.3, platelet count of 307. Vital signs reveal a temperature of 98.5, pulse rate of 65, blood pressure of 165/69, respiratory rate of 20. No medications are noted in MAR. Objective noted to be nonpalpable pedal pulses. Capillary refilling time is delayed on all the digits and absent on the left second digit due to her gangrene. ischemic changes occurring in her left second toe now appear to be extending proximally into the metatarsal head region. Her foot appears clinically boggy. However, there is no visual signs of purulence emanating from her gangrenous region. The area is of any cellulitic activity. There is no signs of ascending cellulitis at this point. 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 PLAN: The patient was seen and evaluated. The wounds were cleansed with normal sterile saline and application of Betadine solution and a dry sterile dressing was applied. Upon examination today, it appears that the wound has not demarcated and is extending proximally into the second metatarsal head region. There are clinical signs of impending ischemia in the remaining digits. She is scheduled for second ray resection on Friday at 04:00 p.m.; however, we cannot rule out possible transmetatarsal amputation if the amputation site does not heal properly. I discuss this with her at length today and I explained to her that her circulation may not be adequate enough to perform only a second digit amputation. She may need a transmetatarsal amputation. The patient states she understands. We will keep her n.p.o. after midnight and we will stop the heparin drip Friday in preparation for her surgery. The patient will be seen and followed daily. Gil Kim DPM
--- NOTE | 2018-06-01 12:50 | CP.PCM.PN ---
Subjective - Date & Time of Evaluation Date of Evaluation: 06/01/18 Time of Evaluation: 11:35 - Subjective Subjective: Surgery progress note, Dr Morrell Surgery re-consulted for progressive abdominal pain. Patient seen and examined at bedside. She reports progressive diffuse abd pain since last night. Pain is associated with nausea, NBNB vomiting. She reports constipation with small hard fecal output last night. Patient received multiple fleet enemas last night with no BM yet and not able to pass flatus as well. She denied fever, chills, hematemesis, melena, hematochezia. ROS reviewed with positives as above Objective - Vital Signs/Intake and Output Vital Signs (last 24 hours): Temp Pulse Resp BP Pulse Ox 97.8 F 94 H 20 190/77 H 93 L 06/01/18 06:00 06/01/18 11:47 06/01/18 06:00 06/01/18 11:47 06/01/18 06:00 Intake and Output: 06/01/18 06/01/18 06:59 18:59 Intake Total 120 200 Output Total 1050 Balance -930 200 - Medications Medications: Current Medications Acetaminophen (Tylenol 325mg Tab) 650 mg PO Q6H PRN PRN Reason: Fever >100.4 F Last Admin: 05/30/18 01:30 Dose: 650 mg Acetaminophen (Tylenol 325mg Tab) 650 mg PO Q4H PRN PRN Reason: Pain, moderate (4-7) Last Admin: 05/30/18 22:44 Dose: 650 mg Amlodipine Besylate (Norvasc) 10 mg PO DAILY [facility] Last Admin: 06/01/18 10:17 Dose: Not Given Aspirin (Aspirin Chewable) 81 mg PO DAILY [facility] Last Admin: 06/01/18 10:17 Dose: Not Given Atorvastatin Calcium (Lipitor) 40 mg PO QOTHERDAY [facility] Last Admin: 05/31/18 09:48 Dose: 40 mg Clonidine HCl (Catapres) 0.3 mg PO TID [facility] Last Admin: 06/01/18 10:17 Dose: Not Given Dextrose (Dextrose 50% Inj) 50 ml IVP ONCE PRN PRN Reason: Hypoglycemia Furosemide (Lasix) 40 mg IV BID [facility] Last Admin: 06/01/18 10:17 Dose: Not Given Glipizide (Glucotrol) 10 mg PO DAILY [facility] Last Admin: 05/27/18 10:00 Dose: Not Given Hydralazine HCl (Apresoline) 10 mg IV Q6H PRN PRN Reason: Systolic Blood Pressure Last Admin: 06/01/18 11:47 Dose: 10 mg Hydralazine HCl (Apresoline) 25 mg PO Q6H [facility] Last Admin: 06/01/18 12:26 Dose: Not Given Aztreonam (Azactam 1 Gm) 100 mls @ 100 mls/hr IVPB Q8 [facility]; Protocol Stop: 06/05/18 14:01 Last Admin: 06/01/18 05:53 Dose: 100 mls/hr Heparin Sodium/Sodium Chloride (Heparin 74162 Units/250ml 1/2 Normal Saline) 25,000 units in 250 mls @ 16.248 mls/hr IV .[id number] PRN; Protocol PRN Reason: ADJUST RATE PER PROTOCOL Last Titration: 05/31/18 10:20 Dose: 0 units/kg/hr, 0 mls/hr Sodium Chloride (Sodium Chloride 0.45%) 1,000 mls @ 50 mls/hr IV .Q20H [facility] Last Admin: 06/01/18 11:36 Dose: 50 mls/hr Insulin Human Lispro (Humalog High) 0 units SC ACHS [facility]; Protocol Last Admin: 06/01/18 11:37 Dose: Not Given Insulin Lispro Protam/Lispro Human (Humalog Mix 75/25) 10 units SC ACBD [facility] Last Admin: 06/01/18 08:31 Dose: Not Given Isosorbide Mononitrate (Imdur Er) 30 mg PO 0600 [facility] Last Admin: 06/01/18 05:52 Dose: Not Given Labetalol HCl (Trandate) 200 mg PO BID [facility] Last Admin: 06/01/18 10:18 Dose: Not Given Levalbuterol HCl (Xopenex) 1.25 mg IH [id number] [facility] Last Admin: 06/01/18 07:21 Dose: 1.25 mg Meclizine HCl (Antivert) 25 mg PO TID PRN PRN Reason: dizzy Last Admin: 05/30/18 11:26 Dose: 25 mg Metoprolol Tartrate (Lopressor) 50 mg PO Q12H [facility] Last Admin: 05/30/18 01:30 Dose: 50 mg Nitroglycerin (Nitro-Bid 2% Oint) 1 ea TOP Q8H [facility] Last Admin: 05/27/18 11:21 Dose: Not Given Ondansetron HCl (Zofran Inj) 4 mg IVP Q6H PRN PRN Reason: Nausea/Vomiting Silver Sulfadiazine (Silvadene 1% 25 Gm) 0 gm TP BID [facility] Last Admin: 06/01/18 10:18 Dose: Not Given Simethicone (Mylicon Chew Tab) 80 mg PO PCHS PRN PRN Reason: GI distress Last Admin: 05/31/18 09:48 Dose: 80 mg - Labs Labs: 06/01/18 09:25 06/01/18 09:25 PT 16.5 SECONDS (9.4-12.5) H 05/29/18 11:00 INR 1.46 05/29/18 11:00 APTT 33.7 Seconds (26.9-38.3) 06/01/18 09:25 - Constitutional Appears: Non-toxic - Head Exam Head Exam: ATRAUMATIC, NORMAL INSPECTION, NORMOCEPHALIC - GI/Abdominal Exam GI & Abdominal Exam: Distended, Soft, Tenderness (diffuse in all quadrants), Hernia, Hypoactive Bowel Sounds. absent: Rigid - Neurological Exam Neurological Exam: Alert, Awake - Psychiatric Exam Psychiatric exam: Anxious - Skin Skin Exam: Dry, Intact, Normal Color, Warm Assessment and Plan - Assessment and Plan (Free Text) Assessment: 67 y/o female with progressive abdominal pain/nausea/vomiting Plan: -CT A/P: large henia with small/large bowel. diffuse dilatation of small bowel with air fluid level. no evidence of associated obstruction -NPO -NG tube placed at 75 mmHg -strict I/O -further recs per Dr Petros Reynolds, DO
--- NOTE | 2018-06-01 14:08 | CT ---
Date of service: 06/01/2018 PROCEDURE: CT Abdomen and Pelvis without intravenous contrast HISTORY: abdominal pain and vomiting COMPARISON: None. TECHNIQUE: Without contrast.. Contrast dose: Radiation dose: Total exam DLP = 1137.15 mGy-cm. This CT exam was performed using one or more of the following dose reduction techniques: Automated exposure control, adjustment of the mA and/or kV according to patient size, and/or use of iterative reconstruction technique. FINDINGS: LOWER THORAX: Small pleural effusions LIVER: Unremarkable. No gross lesion or ductal dilatation. GALLBLADDER AND BILE DUCTS: Multiple gallstones PANCREAS: Unremarkable. No gross lesion or ductal dilatation. SPLEEN: Unremarkable. ADRENALS: Unremarkable. No mass. KIDNEYS AND URETERS: Unremarkable. No hydronephrosis. No solid mass. 4 cm cystic lesion in the right kidney VASCULATURE: Unremarkable. No aortic aneurysm. No aortic atherosclerotic calcification or mural plaque present. BOWEL: There is a large hernia in the left lower quadrant containing loops of large and small bowel. There is also some fluid within the hernia sac and subcutaneous edema. There is no evidence of associated obstruction. There is diffuse dilatation of the small bowel. Multiple fluid-filled loops are seen. The stomach is also filled with fluid. APPENDIX: Unremarkable. Normal appendix. PERITONEUM: Unremarkable. No free fluid. No free air. LYMPH NODES: Unremarkable. No enlarged lymph nodes. BLADDER: Unremarkable. REPRODUCTIVE: Unremarkable. BONES: Multilevel disc degeneration. Severe spondylolisthesis at L4-5. OTHER FINDINGS: The study was reviewed with Dr. Gaxiola IMPRESSION: There is a large hernia in the left lower quadrant containing loops of large and small bowel. There is also some fluid within the hernia sac and subcutaneous edema. There is no evidence of associated obstruction. There is diffuse dilatation of the small bowel. Multiple fluid-filled loops are seen. The stomach is also filled with fluid.
[2018-06-01] MEDS: metroNIDAZOLE IV 500 mg/100 ml 500 MG/100 ML BAG IVPB SCH ×2 (14:36→22:00)
--- NOTE | 2018-06-01 14:37 | CP.PCM.PCO ---
Physician Communication Note - Physician Communication Note Physician Communication Note: Please keep NG tube suction at 75 mmHg. Strict I/O
--- NOTE | 2018-06-01 15:08 | CP.PCM.PN ---
Subjective - Date & Time of Evaluation Date of Evaluation: 06/01/18 Time of Evaluation: 14:50 - Subjective Subjective: Patient now has an NGT with dark-colored fluid coming out, no fevers, Dr. Kim just drained pus from her left foot and cleaned the wound. WBC count today is elevated at 18k. Patient feels weak and tired. No diarrhea. Objective - Vital Signs/Intake and Output Vital Signs (last 24 hours): Temp Pulse Resp BP Pulse Ox 97.8 F 94 H 20 190/77 H 93 L 06/01/18 06:00 06/01/18 11:47 06/01/18 06:00 06/01/18 11:47 06/01/18 06:00 Intake and Output: 06/01/18 06/01/18 06:59 18:59 Intake Total 120 200 Output Total 1050 Balance -930 200 - Medications Medications: Current Medications Acetaminophen (Tylenol 325mg Tab) 650 mg PO Q6H PRN PRN Reason: Fever >100.4 F Last Admin: 05/30/18 01:30 Dose: 650 mg Acetaminophen (Tylenol 325mg Tab) 650 mg PO Q4H PRN PRN Reason: Pain, moderate (4-7) Last Admin: 05/30/18 22:44 Dose: 650 mg Amlodipine Besylate (Norvasc) 10 mg PO DAILY [facility] Last Admin: 06/01/18 10:17 Dose: Not Given Aspirin (Aspirin Chewable) 81 mg PO DAILY [facility] Last Admin: 06/01/18 10:17 Dose: Not Given Atorvastatin Calcium (Lipitor) 40 mg PO QOTHERDAY [facility] Last Admin: 05/31/18 09:48 Dose: 40 mg Clonidine HCl (Catapres) 0.3 mg PO TID [facility] Last Admin: 06/01/18 14:27 Dose: Not Given Dextrose (Dextrose 50% Inj) 50 ml IVP ONCE PRN PRN Reason: Hypoglycemia Furosemide (Lasix) 40 mg IV BID [facility] Last Admin: 06/01/18 10:17 Dose: Not Given Glipizide (Glucotrol) 10 mg PO DAILY [facility] Last Admin: 05/27/18 10:00 Dose: Not Given Hydralazine HCl (Apresoline) 10 mg IV Q6H PRN PRN Reason: Systolic Blood Pressure Last Admin: 06/01/18 11:47 Dose: 10 mg Hydralazine HCl (Apresoline) 25 mg PO Q6H [facility] Last Admin: 06/01/18 12:26 Dose: Not Given Aztreonam (Azactam 1 Gm) 100 mls @ 100 mls/hr IVPB Q8 [facility]; Protocol Stop: 06/05/18 14:01 Last Admin: 06/01/18 05:53 Dose: 100 mls/hr Heparin Sodium/Sodium Chloride (Heparin 04026 Units/250ml 1/2 Normal Saline) 25,000 units in 250 mls @ 16.248 mls/hr IV .[id number] PRN; Protocol PRN Reason: ADJUST RATE PER PROTOCOL Last Titration: 05/31/18 10:20 Dose: 0 units/kg/hr, 0 mls/hr Sodium Chloride (Sodium Chloride 0.45%) 1,000 mls @ 50 mls/hr IV .Q20H [facility] Last Admin: 06/01/18 11:36 Dose: 50 mls/hr Metronidazole (Flagyl) 500 mg in 100 mls @ 100 mls/hr IVPB Q8 [facility]; Protocol Last Admin: 06/01/18 14:36 Dose: 100 mls/hr Linezolid (Zyvox 600mg/300ml D5w) 600 mg in 300 mls @ 200 mls/hr IVPB Q12 [facility]; Protocol Stop: 06/08/18 13:31 Insulin Human Lispro (Humalog High) 0 units SC ACHS [facility]; Protocol Last Admin: 06/01/18 11:37 Dose: Not Given Insulin Lispro Protam/Lispro Human (Humalog Mix 75/25) 10 units SC ACBD [facility] Last Admin: 06/01/18 08:31 Dose: Not Given Isosorbide Mononitrate (Imdur Er) 30 mg PO 0600 [facility] Last Admin: 06/01/18 05:52 Dose: Not Given Labetalol HCl (Trandate) 200 mg PO BID [facility] Last Admin: 06/01/18 10:18 Dose: Not Given Levalbuterol HCl (Xopenex) 1.25 mg IH [id number] [facility] Last Admin: 06/01/18 13:49 Dose: 1.25 mg Meclizine HCl (Antivert) 25 mg PO TID PRN PRN Reason: dizzy Last Admin: 05/30/18 11:26 Dose: 25 mg Metoprolol Tartrate (Lopressor) 50 mg PO Q12H [facility] Last Admin: 05/30/18 01:30 Dose: 50 mg Nitroglycerin (Nitro-Bid 2% Oint) 1 ea TOP Q8H [facility] Last Admin: 05/27/18 11:21 Dose: Not Given Ondansetron HCl (Zofran Inj) 4 mg IVP Q6H PRN PRN Reason: Nausea/Vomiting Pantoprazole Sodium (Protonix Inj) 40 mg IVP DAILY [facility] Last Admin: 06/01/18 14:36 Dose: 40 mg Silver Sulfadiazine (Silvadene 1% 25 Gm) 0 gm TP BID [facility] Last Admin: 06/01/18 10:18 Dose: Not Given Simethicone (Mylicon Chew Tab) 80 mg PO PCHS PRN PRN Reason: GI distress Last Admin: 05/31/18 09:48 Dose: 80 mg - Labs Labs: 06/01/18 09:25 06/01/18 09:25 PT 16.5 SECONDS (9.4-12.5) H 05/29/18 11:00 INR 1.46 05/29/18 11:00 APTT 33.7 Seconds (26.9-38.3) 06/01/18 09:25 - Constitutional Appears: Chronically Ill - Head Exam Head Exam: NORMAL INSPECTION - ENT Exam Additional comments: NGT in place - Respiratory Exam Respiratory Exam: Decreased Breath Sounds - Cardiovascular Exam Cardiovascular Exam: +S1, +S2 - GI/Abdominal Exam GI & Abdominal Exam: Soft. absent: Tenderness - Extremities Exam Additional comments: left foot with dressings in place Assessment and Plan - Assessment and Plan (Free Text) Plan: Assessment SIRS due to left 2nd toe gangrene with distal phalanx osteomyelitis and now with purulent skin and skin structure infection S/P bedside I and 06/01/2018, in this patient with probable peripheral vascular disease, went for angioplasty 05/27/2018 history of right leg skin and skin structure infection - patient has had a history of infection in the same leg with fasciotomy, I and D and debridement in September 2014 HTN DM history of left knee surgery history of shoulder surgery Atrial fibrillation history of CVA Plan discussed with Podiatry Dr. Kim - bedside I and D done and will follow up cultures - will switch intermittent Vancomycin to Zyvox and continue Azactam and add Flagyl and will monitor clinically, trend WBC count - patient may need surgery as discussed with Podiatry
--- NOTE | 2018-06-01 15:57 | RAD ---
Date of service: 06/01/2018 HISTORY: NGT placement COMPARISON: Earlier same day FINDINGS: LUNGS: Decreased vascular and interstitial congestion PLEURA: No significant pleural effusion identified, no pneumothorax apparent. CARDIOVASCULAR: No aortic atherosclerotic calcification present. Normal cardiac size. OSSEOUS STRUCTURES: No significant abnormalities. VISUALIZED UPPER ABDOMEN: Normal. OTHER FINDINGS: None. IMPRESSION: Nasogastric tube in satisfactory position
--- NOTE | 2018-06-01 17:01 | PN ---
DATE: 06/01/2018 SUBJECTIVE: The patient is 67 years old, seen and examined. Complained of abdominal discomfort, did not have bowel movement for five to six days, was given multiple rounds of magnesium citrate and enema with very little bowel movement last night. Complained of abdominal discomfort, complained of nausea. The patient was scheduled to have surgical intervention done today, I am afraid it has to be canceled. PHYSICAL EXAMINATION: VITAL SIGNS: She is afebrile, pulse 84, respirations 20, blood pressure 166/51. LUNGS: Bilateral fair airflow. No rhonchi or crackles. HEART: S1 and S2 audible. ABDOMEN: Hard and palpable discomfort in the right and left lower quadrant area. LABORATORY DATA: WBC 18.9, hemoglobin 9.7, hematocrit 30, and platelet of 315. PTT is 33.7. Chemistry: Sodium 141, potassium 4.6, chloride 108, CO2 of 19, BUN 70, creatinine 3.4, blood sugar of 206. ASSESSMENT: 1. Constipation, rule out fecal impaction. 2. Congestive heart failure, diastolic, stable for now. 3. Diabetic nephropathy. 4. Peripheral vascular disease. 5. Left foot second toe gangrene. 6. Insulin dependent diabetes. 7. Coronary artery disease, status post angioplasty. 8. . 9. Anemia. PLAN: So plan is, we will get CT of abdomen and pelvis, GI consult by Dr. Gaxiola is requested. We will start her on small dose of IV fluids. We will follow up her electrolytes and CBC in a.m. Jason Laws MD
[2018-06-01] MEDS: Linezolid 600 mg in D5W 300 ml 600 MG/300 ML BAG IVPB SCH ×2 (17:38→22:03)
--- NOTE | 2018-06-01 20:48 | PN ---
DATE: 06/01/2018 SUBJECTIVE: A 67-year-old female seen at bedside, in distress and has been vomiting on and off for the past 24 hours. She is complaining of severe abdominal pain. Most recent chest x-rays reveal severe bilateral vascular congestion. She was scheduled for a digital amputation, however, due to her distress, the case was canceled. OBJECTIVE: VITAL SIGNS: The patient's vital signs revealed temperature of 97.8, pulse rate of 94, blood pressure of 190/77, respiratory rate of 20. EXTREMITIES: There noted to be nonpalpable pedal pulses bilaterally. Capillary temperature gradient is warm to cool. There is noted to be a gangrenous left second digit that encompasses the entire toe. The plantar aspect of the second metatarsophalangeal joint region presents with boggy flocculent area indicative of underlying abscess formation. There is noted to be purulent drainage emanating from an ulceration at the base of the gangrenous left second digit. There is noted to be positive malodor. The entire forefoot is erythematous and edematous indicating positive cellulitic activity. The patient is unable to detect 5.07 g monofilament wire testing as her forefoot is completely insensate. LABORATORY DATA: Laboratory findings reveal white count of 18.9, up from 12.3 yesterday. Hemoglobin is 9.7, hematocrit is 30, platelet count is 314. The patient's aPTT is 33.7, BUN is 70, creatinine is 3.4. MRI has confirmed acute osteomyelitis of the left distal second toe. ASSESSMENT: A 67-year-old insulin-dependent diabetic female with left second digit gangrene with underlying abscess formation at the left second metatarsophalangeal joint. PLAN: The patient was seen and evaluated. At this point, there is noted to be purulence emanating at the base of her left second gangrenous toe with flocculence proximally under the second metatarsal indicating abscess formation. Her white blood cell count has gone from 12.3 yesterday to 18.9 today. She was scheduled for surgery this afternoon, which was canceled due to her severe abdominal pain which is now currently being addressed. It was decided to perform an incision and drainage procedure at bedside as the patient is insensate and would not feel the incision. Using sterile gloves and a sterile field, a sterile 15 blade was used and an approximately 2 cm incision was made at the plantar aspect of the second metatarsophalangeal joint. It should be noted that upon making the incision, purulent drainage started to freely flow from the area. Using sterile curette and sterile scissors, the incision site was gently opened and all the surrounding tissue planes were gently freed. At this point, there was noted to be purulence and a foul-smelling discharge. Approximately 15 mL of purulence was extracted using sterile instruments and manual compression of the area. The area was then flushed with copious amounts of Clorpactin solution and a culture was taken and submitted for sensitivities. The wound was gently packed with sterile iodoform packing and a dry sterile dressing was applied. The patient is tentatively scheduled for left second digit amputation on afternoon pending cardiac clearance. I spoke with her son, Anselmo, after the procedure and expressed my concerns on the severity of his mother's ischemia which could result in possible transmetatarsal amputation or below-knee amputation. He stated he understood. The patient will be seen and followed daily with plans for amputation of the left second digit on . Gil Kim DPM
--- NOTE | 2018-06-01 20:59 | CON ---
DATE OF CONSULTATION: 06/01/2018 REQUESTING PHYSICIAN: Jason Laws MD REASON FOR CONSULTATION: I have been asked to see this 67-year-old female with peripheral arterial disease with gangrene of her left second toe, awaiting amputation, who developed increasing abdominal pain this morning. I have been asked to see this patient for the abdominal pain. She admits to several episodes of vomiting today. She has had constipation for several days. Her last bowel movement was yesterday where she passed a few small pebbly bowel movements again. She complains of diffuse mid abdominal pain. PAST MEDICAL HISTORY: Notable for hypertension, peripheral arterial disease, diabetes mellitus, coronary artery disease, status post multiple coronary artery stent placements. PAST SURGICAL HISTORY: Notable for left knee arthroscopy. FAMILY HISTORY: Noncontributory. SOCIAL HISTORY: She is a former cigarette smoker, having quit 4 years ago. She denies alcohol use. MEDICATIONS AT HOME: Lasix, vitamin D, Isordil, metoprolol, warfarin, atorvastatin, meclizine, metformin, clonidine, Norvasc and insulin NPH 70/30. REVIEW OF SYSTEMS: A 14-point review of systems is notable for left second toe ulcer, nausea, vomiting, abdominal pain, chronic constipation. PHYSICAL EXAMINATION: GENERAL: Morbidly obese female lying in bed in moderate distress from abdominal pain. VITAL SIGNS: Temperature of 97.8, blood pressure 190/77, heart rate 94. HEENT: Reveal sclerae to be white. Conjunctivae pale. NECK: Supple. CHEST: Distant breath sounds. HEART: Regular rate and rhythm. ABDOMEN: Obese. She has a huge lower abdominal pannus. She also has an abdominal wall ulcer in the left lower quadrant without drainage. Her lower abdomen is firm with voluntary guarding. There is no rebound. EXTREMITIES: Show her left second toe to be in a dressing. There are chronic stasis changes of her lower legs. There is 1+ pedal edema. LABORATORY DATA: White blood cell count 18.9, hemoglobin 9.7, platelet count 315,000. Chemistries reveal bicarb of 19, BUN 70, creatinine 3.4. AST 64, ALT 30, alkaline phosphatase of 185. BNP of 37,500. IMPRESSION: A 67-year-old female with new onset of abdominal pain, nausea, vomiting. One must rule out bowel obstruction versus fecal impaction versus possible ischemic bowel. RECOMMENDATIONS: 1. We will request CT scan of the abdomen and pelvis. 2. Surgical reevaluation. 3. Further recommendations depending on the results of the CT scan. Norm Gaxiola MD
[2018-06-01] MEDS ORDERED: DiphenhydrAMINE 50 mg/ml Inj IVP STA (23:39)
[2018-06-02] MEDS ORDERED: DiphenhydrAMINE 50 mg/ml Inj IVP STA (02:34)
[2018-06-02] MEDS: Levalbuterol 1.25 MG/3 ML Inhal Soln UD IH SCH ×4 (02:52→19:56)
[2018-06-02] MEDS: Aztreonam 1 Gm in NS 100mL 100 ML IVPB SCH ×2 (05:36→21:08)
[2018-06-02] MEDS: metroNIDAZOLE IV 500 mg/100 ml 500 MG/100 ML BAG IVPB SCH ×3 (05:36→21:07)
--- NOTE | 2018-06-02 06:09 | CP.PCM.PN ---
<RaheemSera hudson - Last Filed: 06/02/18 18:54> Subjective - Date & Time of Evaluation Date of Evaluation: 06/02/18 Time of Evaluation: 06:30 - Subjective Subjective: Pgy3 Nephrology progress note for Dr. Watkins Patient seen and examined at bedside. Patient complained of abdominal pain overnight and this AM. NGT in place and drained 3600cc since it was placed the day prior. Patient did not have a BM since the day prior. She was NPO with NGT in place. Patient for OR today. Denied any fever, chest pain, SOB. Patient still has some pain in her left foot but reports pain in her abdomen is much greater than her foot. Objective - Vital Signs/Intake and Output Vital Signs (last 24 hours): Temp Pulse Resp BP Pulse Ox 98.2 F 94 H 18 170/68 H 96 06/02/18 00:01 06/02/18 02:00 06/02/18 00:01 06/02/18 00:01 06/01/18 13:07 Intake and Output: 06/01/18 06/02/18 18:59 06:59 Intake Total 700 Output Total 1800 Balance -1100 - Medications Medications: Current Medications Acetaminophen (Tylenol 325mg Tab) 650 mg PO Q6H PRN PRN Reason: Fever >100.4 F Last Admin: 05/30/18 01:30 Dose: 650 mg Acetaminophen (Tylenol 325mg Tab) 650 mg PO Q4H PRN PRN Reason: Pain, moderate (4-7) Last Admin: 05/30/18 22:44 Dose: 650 mg Amlodipine Besylate (Norvasc) 10 mg PO DAILY [facility] Last Admin: 06/01/18 10:17 Dose: Not Given Aspirin (Aspirin Chewable) 81 mg PO DAILY [facility] Last Admin: 06/01/18 10:17 Dose: Not Given Atorvastatin Calcium (Lipitor) 40 mg PO QOTHERDAY [facility] Last Admin: 05/31/18 09:48 Dose: 40 mg Clonidine HCl (Catapres) 0.3 mg PO TID [facility] Last Admin: 06/01/18 17:21 Dose: Not Given Dextrose (Dextrose 50% Inj) 50 ml IVP ONCE PRN PRN Reason: Hypoglycemia Furosemide (Lasix) 40 mg IV BID [facility] Last Admin: 06/01/18 17:37 Dose: 40 mg Glipizide (Glucotrol) 10 mg PO DAILY [facility] Last Admin: 05/27/18 10:00 Dose: Not Given Hydralazine HCl (Apresoline) 10 mg IV Q6H PRN PRN Reason: Systolic Blood Pressure Last Admin: 06/01/18 11:47 Dose: 10 mg Hydralazine HCl (Apresoline) 25 mg PO Q6H [facility] Last Admin: 06/02/18 05:37 Dose: Not Given Aztreonam (Azactam 1 Gm) 100 mls @ 100 mls/hr IVPB Q8 [facility]; Protocol Stop: 06/05/18 14:01 Last Admin: 06/02/18 05:36 Dose: 100 mls/hr Heparin Sodium/Sodium Chloride (Heparin 48845 Units/250ml 1/2 Normal Saline) 25,000 units in 250 mls @ 16.248 mls/hr IV .[id number] PRN; Protocol PRN Reason: ADJUST RATE PER PROTOCOL Last Titration: 05/31/18 10:20 Dose: 0 units/kg/hr, 0 mls/hr Sodium Chloride (Sodium Chloride 0.45%) 1,000 mls @ 50 mls/hr IV .Q20H [facility] Last Admin: 06/01/18 11:36 Dose: 50 mls/hr Metronidazole (Flagyl) 500 mg in 100 mls @ 100 mls/hr IVPB Q8 [facility]; Protocol Last Admin: 06/02/18 05:36 Dose: 100 mls/hr Linezolid (Zyvox 600mg/300ml D5w) 600 mg in 300 mls @ 200 mls/hr IVPB Q12 [facility]; Protocol Stop: 06/08/18 13:31 Last Admin: 06/01/18 22:03 Dose: 200 mls/hr Insulin Human Lispro (Humalog High) 0 units SC ACHS [facility]; Protocol Last Admin: 06/01/18 22:05 Dose: Not Given Insulin Lispro Protam/Lispro Human (Humalog Mix 75/25) 10 units SC ACBD [facility] Last Admin: 06/01/18 16:33 Dose: Not Given Isosorbide Mononitrate (Imdur Er) 30 mg PO 0600 [facility] Last Admin: 06/02/18 05:37 Dose: Not Given Labetalol HCl (Trandate) 200 mg PO BID [facility] Last Admin: 06/01/18 17:22 Dose: Not Given Levalbuterol HCl (Xopenex) 1.25 mg IH [id number] [facility] Last Admin: 06/02/18 02:52 Dose: 1.25 mg Meclizine HCl (Antivert) 25 mg PO TID PRN PRN Reason: dizzy Last Admin: 05/30/18 11:26 Dose: 25 mg Metoprolol Tartrate (Lopressor) 50 mg PO Q12H [facility] Last Admin: 05/30/18 01:30 Dose: 50 mg Nitroglycerin (Nitro-Bid 2% Oint) 1 ea TOP Q8H [facility] Last Admin: 05/27/18 11:21 Dose: Not Given Ondansetron HCl (Zofran Inj) 4 mg IVP Q6H PRN PRN Reason: Nausea/Vomiting Pantoprazole Sodium (Protonix Inj) 40 mg IVP DAILY [facility] Last Admin: 06/01/18 14:36 Dose: 40 mg Silver Sulfadiazine (Silvadene 1% 25 Gm) 0 gm TP BID [facility] Last Admin: 06/01/18 17:22 Dose: Not Given Simethicone (Mylicon Chew Tab) 80 mg PO PCHS PRN PRN Reason: GI distress Last Admin: 05/31/18 09:48 Dose: 80 mg - Labs Labs: 06/01/18 09:25 06/01/18 09:25 PT 16.5 SECONDS (9.4-12.5) H 05/29/18 11:00 INR 1.46 05/29/18 11:00 APTT 33.7 Seconds (26.9-38.3) 06/01/18 09:25 - Additional Findings Additional findings: Constitutional Appears: In Acute Distress (pain), Chronically Ill - Head Exam Head Exam: ATRAUMATIC, NORMAL INSPECTION, NORMOCEPHALIC - Eye Exam Eye Exam: Normal appearance. absent: Conjunctival injection, Scleral icterus - ENT Exam ENT Exam: Mucous Membranes Dry Additional comments: NGT in place and draining bilious fluid 3600cc since placement - Respiratory Exam Respiratory Exam: Decreased Breath Sounds, NORMAL BREATHING PATTERN. absent: Accessory Muscle Use, Rales, Rhonchi, Wheezes - Cardiovascular Exam Cardiovascular Exam: Tachycardia, +S1, +S2 - GI/Abdominal Exam GI & Abdominal Exam: Distended, Tenderness (diffuse) Additional comments: hernia noted-firm - Extremities Exam Extremities Exam: Pedal Edema Additional comments: L foot wrapped in dressings as per podiatry - Neurological Exam Neurological Exam: Alert, Awake, Oriented x3 - Psychiatric Exam Psychiatric exam: Anxious - Skin Skin Exam: Dry, Intact Assessment and Plan - Assessment and Plan (Free Text) Assessment: - SBO likely secondary to hernia s/p NGT insertion - Worsening GILBERTO on CKD3b - Constipation - Hypochromic Microcytic Anemia - CKD 3b - Hypertension Plan: Patient's blood work, vitals, and imaging noted in chart. Patient for OR today. GILBERTO worsening- Cr 3.5 this AM. Patient worsening creatinine and GFR concerning; may require dialysis if does not improve. H&H stable at this time. Will continue to monitor closely. Discussed with Dr. Roland Maciel PGY3 <Kailash Watkins S - Last Filed: 06/03/18 19:12> Objective - Vital Signs/Intake and Output Vital Signs (last 24 hours): Temp Pulse Resp BP Pulse Ox 97.5 F L 98 H 20 165/72 H 90 L 06/03/18 19:00 06/03/18 19:00 06/03/18 19:00 06/03/18 19:00 06/03/18 19:00 Intake and Output: 06/03/18 06/04/18 18:59 06:59 Intake Total 56 Balance 56 - Medications Medications: Current Medications Acetaminophen (Tylenol 325mg Tab) 650 mg PO Q6H PRN PRN Reason: Fever >100.4 F Last Admin: 05/30/18 01:30 Dose: 650 mg Albuterol/Ipratropium (Duoneb 3 Mg/0.5 Mg (3 Ml) Ud) 3 ml IH Q2H PRN PRN Reason: Shortness of Breath Amlodipine Besylate (Norvasc) 10 mg PO DAILY [facility] Last Admin: 06/02/18 09:34 Dose: Not Given Aspirin (Aspirin Chewable) 81 mg PO DAILY [facility] Last Admin: 06/03/18 10:46 Dose: 81 mg Atorvastatin Calcium (Lipitor) 40 mg PO QOTHERDAY [facility] Last Admin: 06/02/18 09:33 Dose: Not Given Clonidine HCl (Catapres) 0.3 mg PO TID [facility] Last Admin: 06/03/18 10:50 Dose: Not Given Dextrose (Dextrose 50% Inj) 50 ml IVP ONCE PRN PRN Reason: Hypoglycemia Heparin Sodium (Porcine) (Heparin) 5,000 units SC Q8 [facility]; Protocol Last Admin: 06/03/18 14:40 Dose: 5,000 units Hydralazine HCl (Apresoline) 10 mg IV Q6H PRN PRN Reason: Systolic Blood Pressure Last Admin: 06/03/18 18:25 Dose: 10 mg Hydralazine HCl (Apresoline) 25 mg PO Q6H [facility] Last Admin: 06/02/18 05:37 Dose: Not Given Hydromorphone HCl (Dilaudid) 0.5 mg IVP Q4H PRN PRN Reason: Pain, moderate (4-7) Last Admin: 06/03/18 17:59 Dose: 0.5 mg Heparin Sodium/Sodium Chloride (Heparin 29326 Units/250ml 1/2 Normal Saline) 25,000 units in 250 mls @ 16.248 mls/hr IV .[id number] PRN; Protocol PRN Reason: ADJUST RATE PER PROTOCOL Last Titration: 05/31/18 10:20 Dose: 0 units/kg/hr, 0 mls/hr Metronidazole (Flagyl) 500 mg in 100 mls @ 100 mls/hr IVPB Q8 [facility]; Protocol Last Admin: 06/03/18 14:40 Dose: 100 mls/hr Linezolid (Zyvox 600mg/300ml D5w) 600 mg in 300 mls @ 200 mls/hr IVPB Q12 [facility]; Protocol Stop: 06/08/18 13:31 Last Admin: 06/03/18 10:46 Dose: 200 mls/hr Aztreonam (Azactam 1 Gm) 100 mls @ 100 mls/hr IVPB Q12 [facility]; Protocol Stop: 06/09/18 22:01 Last Admin: 06/03/18 10:46 Dose: 100 mls/hr Insulin Human Lispro (Humalog High) 0 units SC ACHS [facility]; Protocol Last Admin: 06/03/18 16:06 Dose: Not Given Insulin Lispro Protam/Lispro Human (Humalog Mix 75/25) 10 units SC ACBD [facility] Last Admin: 06/03/18 16:07 Dose: Not Given Isosorbide Mononitrate (Imdur Er) 30 mg PO 0600 [facility] Last Admin: 06/03/18 05:08 Dose: Not Given Labetalol HCl (Trandate) 200 mg PO BID [facility] Last Admin: 06/02/18 09:34 Dose: Not Given Levalbuterol HCl (Xopenex) 1.25 mg IH [id number] [facility] Last Admin: 06/03/18 13:24 Dose: 1.25 mg Meclizine HCl (Antivert) 25 mg PO TID PRN PRN Reason: dizzy Last Admin: 05/30/18 11:26 Dose: 25 mg Metoprolol Tartrate (Lopressor) 50 mg PO Q12H [facility] Last Admin: 05/30/18 01:30 Dose: 50 mg Metoprolol Tartrate (Lopressor) 5 mg IVP Q6H [facility] Last Admin: 06/03/18 17:57 Dose: 5 mg Nitroglycerin (Nitro-Bid 2% Oint) 1 ea TOP Q8H [facility] Last Admin: 06/03/18 17:54 Dose: 1 ea Ondansetron HCl (Zofran Inj) 4 mg IVP Q6H PRN PRN Reason: Nausea/Vomiting Oxychlorosene Sodium (Clorpactin Wcs-90) 2 gm TOP DAILY [facility] Last Admin: 06/03/18 10:45 Dose: 2 gm Pantoprazole Sodium (Protonix Inj) 40 mg IVP DAILY [facility] Last Admin: 06/03/18 10:45 Dose: 40 mg Silver Sulfadiazine (Silvadene 1% 25 Gm) 0 gm TP BID [facility] Last Admin: 06/03/18 10:49 Dose: 25 gm Simethicone (Mylicon Chew Tab) 80 mg PO HS PRN PRN Reason: GI distress Last Admin: 05/31/18 09:48 Dose: 80 mg - Labs Labs: 06/03/18 17:42 06/03/18 06:00 PT 23.6 SECONDS (9.4-12.5) H 06/02/18 10:05 INR 2.09 06/02/18 10:05 APTT 34.5 Seconds (26.9-38.3) 06/02/18 10:05 Assessment and Plan - Assessment and Plan (Free Text) Plan: Pt seen and examined by me. I have reviewed the note of the biomedical engineering internship and I agree with it. I have discussed the assessment and plan with the resident. I have reviewed the medications and the last labs. Pt with GILBERTO. This is a late entry. She has contrast nephropathy and is now euvolemic. The abd is a concern today for possible obstruction. Pt PAD and has L toe gangrene. Will need to follow output and Cr. If her Cr does not improve and continues to worsen she will need dialysis. I did spoke to the pt about this issue.
[2018-06-02 06:42] LABS: CALCIUM 8.6 mg/dL (8.4-10.5)
[2018-06-02] MEDS: Insulin Lispro (HUMAlog) HIGH Coverage SC SCH ×4 (08:17→22:21)
[2018-06-02] MEDS: Insulin Lispro (humaLOG) MIX 75/25(10 ml) SC SCH ×2 (08:18→18:42)
[2018-06-02] MEDS: Linezolid 600 mg in D5W 300 ml 600 MG/300 ML BAG IVPB SCH ×2 (10:00→21:07)
[2018-06-02 10:11] LABS: BASO # 0.04 K/mm3 (0.0-2.0); BASO % 0.2 % (0.0-3.0); EOS % 0.2 % (1.5-5.0); HEMOGLOBIN 8.6 g/dL (12.0-16.0); LYMPH # 1.1 (1.2-3.4); LYMPH % 4.7 % (22.0-35.0); MEAN CELL VOLUME 80.1 fl (80.0-105.0); MEAN CORPUSCULAR HEMOGLOBIN 24.9 pg (25.0-35.0); MONO # 0.8 (0.1-0.6); MONO % 3.3 % (1.0-6.0); RBC 3.46 10^6/uL (3.5-6.1); RED CELL DISTRIBUTION WIDTH 17.5 % (11.5-14.5); WHITE BLOOD COUNT 23.6 10^3/uL (4.5-11.0)
[2018-06-02 10:21] LABS: INR 2.09; PARTIAL THROMBOPLASTIN TIME 34.5 Seconds (26.9-38.3); PROTHROMBIN TIME 23.6 SECONDS (9.4-12.5)
[2018-06-02] MEDS ORDERED: Phytonadione 10 mg/ml Inj (Adult) SC ONE (10:26)
[2018-06-02 10:34] LABS: CALCIUM 8.7 mg/dL (8.4-10.5)
[2018-06-02] MEDS: Silver Sulfadiazine 1% Cream (25 gm) TP SCH (11:55)
[2018-06-02] MEDS: Metoprolol 1 mg/ml Inj IVP SCH ×2 (11:59→22:15)
[2018-06-02] MEDS ORDERED: Bupivacaine 0.5% 50 ML IJ ONE ×2 (12:11→15:50)
[2018-06-02] MEDS ORDERED: Rocuronium 10 mg/ml (5 ml) ONE (12:45)
[2018-06-02] MEDS ORDERED: Midazolam 2 MG/2 ML VIAL ONE (12:45)
[2018-06-02] MEDS ORDERED: Etomidate 20 mg/10ml Inj IV ONE (12:46)
[2018-06-02] MEDS: Sodium Chloride 0.45% 1,000 ML IV SCH (13:47)
[2018-06-02] MEDS ORDERED: Oxychlorosene Topical 2 gm Packet TOP ONE (15:00)
--- NOTE | 2018-06-02 15:17 | CP.PCM.PN ---
Subjective - Date & Time of Evaluation Date of Evaluation: 06/02/18 Time of Evaluation: 10:50 - Subjective Subjective: Patient for possible surgery for the abdomen today, no fevers, still with left foot pain, with abdominal pain currently, still with NGT. Objective - Vital Signs/Intake and Output Vital Signs (last 24 hours): Temp Pulse Resp BP Pulse Ox 97.8 F 94 H 20 190/77 H 93 L 06/01/18 06:00 06/01/18 11:47 06/01/18 06:00 06/01/18 11:47 06/01/18 06:00 Intake and Output: 06/01/18 06/01/18 06:59 18:59 Intake Total 120 200 Output Total 1050 Balance -930 200 - Medications Medications: Current Medications Acetaminophen (Tylenol 325mg Tab) 650 mg PO Q6H PRN PRN Reason: Fever >100.4 F Last Admin: 05/30/18 01:30 Dose: 650 mg Acetaminophen (Tylenol 325mg Tab) 650 mg PO Q4H PRN PRN Reason: Pain, moderate (4-7) Last Admin: 05/30/18 22:44 Dose: 650 mg Amlodipine Besylate (Norvasc) 10 mg PO DAILY [facility] Last Admin: 06/01/18 10:17 Dose: Not Given Aspirin (Aspirin Chewable) 81 mg PO DAILY [facility] Last Admin: 06/01/18 10:17 Dose: Not Given Atorvastatin Calcium (Lipitor) 40 mg PO QOTHERDAY [facility] Last Admin: 05/31/18 09:48 Dose: 40 mg Clonidine HCl (Catapres) 0.3 mg PO TID [facility] Last Admin: 06/01/18 14:27 Dose: Not Given Dextrose (Dextrose 50% Inj) 50 ml IVP ONCE PRN PRN Reason: Hypoglycemia Furosemide (Lasix) 40 mg IV BID [facility] Last Admin: 06/01/18 10:17 Dose: Not Given Glipizide (Glucotrol) 10 mg PO DAILY [facility] Last Admin: 05/27/18 10:00 Dose: Not Given Hydralazine HCl (Apresoline) 10 mg IV Q6H PRN PRN Reason: Systolic Blood Pressure Last Admin: 06/01/18 11:47 Dose: 10 mg Hydralazine HCl (Apresoline) 25 mg PO Q6H [facility] Last Admin: 06/01/18 12:26 Dose: Not Given Aztreonam (Azactam 1 Gm) 100 mls @ 100 mls/hr IVPB Q8 [facility]; Protocol Stop: 06/05/18 14:01 Last Admin: 06/01/18 05:53 Dose: 100 mls/hr Heparin Sodium/Sodium Chloride (Heparin 09146 Units/250ml 1/2 Normal Saline) 25,000 units in 250 mls @ 16.248 mls/hr IV .[id number] PRN; Protocol PRN Reason: ADJUST RATE PER PROTOCOL Last Titration: 05/31/18 10:20 Dose: 0 units/kg/hr, 0 mls/hr Sodium Chloride (Sodium Chloride 0.45%) 1,000 mls @ 50 mls/hr IV .Q20H [facility] Last Admin: 06/01/18 11:36 Dose: 50 mls/hr Metronidazole (Flagyl) 500 mg in 100 mls @ 100 mls/hr IVPB Q8 [facility]; Protocol Last Admin: 06/01/18 14:36 Dose: 100 mls/hr Linezolid (Zyvox 600mg/300ml D5w) 600 mg in 300 mls @ 200 mls/hr IVPB Q12 [facility]; Protocol Stop: 06/08/18 13:31 Insulin Human Lispro (Humalog High) 0 units SC ACHS [facility]; Protocol Last Admin: 06/01/18 11:37 Dose: Not Given Insulin Lispro Protam/Lispro Human (Humalog Mix 75/25) 10 units SC ACBD [facility] Last Admin: 06/01/18 08:31 Dose: Not Given Isosorbide Mononitrate (Imdur Er) 30 mg PO 0600 [facility] Last Admin: 06/01/18 05:52 Dose: Not Given Labetalol HCl (Trandate) 200 mg PO BID [facility] Last Admin: 06/01/18 10:18 Dose: Not Given Levalbuterol HCl (Xopenex) 1.25 mg IH [id number] [facility] Last Admin: 06/01/18 13:49 Dose: 1.25 mg Meclizine HCl (Antivert) 25 mg PO TID PRN PRN Reason: dizzy Last Admin: 05/30/18 11:26 Dose: 25 mg Metoprolol Tartrate (Lopressor) 50 mg PO Q12H [facility] Last Admin: 05/30/18 01:30 Dose: 50 mg Nitroglycerin (Nitro-Bid 2% Oint) 1 ea TOP Q8H [facility] Last Admin: 05/27/18 11:21 Dose: Not Given Ondansetron HCl (Zofran Inj) 4 mg IVP Q6H PRN PRN Reason: Nausea/Vomiting Pantoprazole Sodium (Protonix Inj) 40 mg IVP DAILY [facility] Last Admin: 06/01/18 14:36 Dose: 40 mg Silver Sulfadiazine (Silvadene 1% 25 Gm) 0 gm TP BID [facility] Last Admin: 06/01/18 10:18 Dose: Not Given Simethicone (Mylicon Chew Tab) 80 mg PO PCHS PRN PRN Reason: GI distress Last Admin: 05/31/18 09:48 Dose: 80 mg - Labs Labs: 06/01/18 09:25 06/01/18 09:25 PT 16.5 SECONDS (9.4-12.5) H 05/29/18 11:00 INR 1.46 05/29/18 11:00 APTT 33.7 Seconds (26.9-38.3) 06/01/18 09:25 - Constitutional Appears: Chronically Ill - Head Exam Head Exam: NORMAL INSPECTION - ENT Exam Additional comments: NGT in place - Respiratory Exam Respiratory Exam: Decreased Breath Sounds - Cardiovascular Exam Cardiovascular Exam: +S1, +S2 - GI/Abdominal Exam GI & Abdominal Exam: Soft. 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 Kim - bedside I and D done and will follow up cultures continue Zyvox and continue Azactam and add Flagyl and will monitor clinically, trend WBC count patient for abdominal surgery and will follow up results
--- NOTE | 2018-06-02 15:57 | PN ---
DATE: 06/02/2018 SUBJECTIVE: The patient is lying in bed. She has an NG tube in. The NG tube drained 1800 mL of fluid in the last 24 hours. She still complains of right lower quadrant abdominal pain. OBJECTIVE: VITAL SIGNS: Reveal temperature of 97.6, blood pressure 186/68, heart rate of 98. HEENT: Reveal sclerae to be white. Conjunctivae pale. NECK: Supple. CHEST: Revealed decreased bowel sounds. HEART: Reveals regular rate and rhythm. ABDOMEN: Distended, firm in the right lower quadrant with voluntary guarding. EXTREMITIES: Show 1+ edema of the lower extremities with chronic stasis changes and her left second toe in a dressing. LABORATORY DATA: Reveal white blood cell count 23.6, hemoglobin 8.6, platelet count 293,000. Chemistries reveal BUN 77, creatinine 3.5, total bilirubin 1.4. AST, ALT normal. Alkaline phosphatase of 154. IMPRESSION: This is a 67-year-old female with small bowel obstruction, now with leukocytosis. She continues to have right lower quadrant abdominal pain. RECOMMENDATIONS: I have discussed this case with Dr. Morrell. He is planning on taking the patient to OR for exploratory laparotomy. Norm Gaxiola MD MTDD
--- NOTE | 2018-06-02 16:21 | PCM.SURG1 ---
Surgeon's Initial Post Op Note - Surgeon's Notes Surgeon: Dr. Morrell Water Analyst: Dr. Ortiz PGY3, Dr. Coronado PGY2 Type of Anesthesia: General Endo Anesthesia Administered By: Dr. Everett Pre-Operative Diagnosis: Incarcerated ventral hernia Operative Findings: Necrotic small bowel Post-Operative Diagnosis: Strangulated ventral hernia Operation Performed: Exploratory laparotomy, small bowel resection, incidental appendectomy, jejunocecal anastamosis Specimen/Specimens Removed: ileum, appendix, omentum, hernia sac Estimated Blood Loss: EBL {In ML}: 350 Blood Products Given: PRBC, FFP Drains Used: Alejandro Post-Op Condition: Fair Date of Surgery/Procedure: 06/02/18 Time of Surgery/Procedure: 16:21
[2018-06-02] MEDS ORDERED: HYDROmorphone 0.5 mg/0.5 ml ISec IVP PRN (16:23)
[2018-06-02] MEDS ORDERED: Midazolam 2 MG/2 ML VIAL IVP ONE (16:28)
[2018-06-02] MEDS ORDERED: Sodium Chloride 0.9% 1,000 ML IV SCH (16:30)
[2018-06-02] MEDS ORDERED: HYDROmorphone 0.5 mg/0.5 ml ISec ONE (16:54)
[2018-06-02] MEDS ORDERED: HYDROmorphone 0.5 mg/0.5 ml ISec IVP ONE (16:55)
--- NOTE | 2018-06-02 17:07 | PN ---
DATE: 06/02/2018 SUBJECTIVE: The patient is a 67-year-old, seen and examined, complained of pain in abdomen, complained of lot of discomfort. She states she wants to get rid of this pain. The patient was found to have partial small bowel obstruction, being taken to OR this morning. PHYSICAL EXAMINATION: GENERAL: She looks in pain. VITAL SIGNS: She is afebrile, pulse 98, respirations 21, blood pressure 170/68. LUNGS: Bilateral soft crackle at bases. HEART: S1 and S2 audible. ABDOMEN: Dense and tender to touch in the right lower quadrant and periumbilical area. EXTREMITIES: Bilateral legs +1 edema. LABORATORY DATA: WBC 23.6, hemoglobin 8.6, hematocrit 27, and platelet of 293. PT is 23.6, INR 2.09. Chemistry: Sodium 141, potassium 4.6, chloride 108, CO2 of 19, BUN 77, creatinine 3.5, blood sugar of 216. ASSESSMENT: 1. Partial small bowel obstruction. 2. Left second toe gangrene. 3. Insulin-dependent diabetes. 4. Renal insufficiency. 5. Leukocytosis. 6. Severe peripheral vascular disease. 7. Ventral hernia containing loop of large and small bowel and some fluid within the hernia sac and subcutaneous edema, diffuse dilatation of the small bowel, multiple fluid levels are seen. PLAN: So, plan is the patient is being taken to OR, keep her n.p.o., NG suction is in place. She is on IV antibiotics. Dr. Kim did bedside I and D of the left foot. We will follow up her electrolytes in the a.m. Jason Laws MD
--- NOTE | 2018-06-02 17:19 | CP.CCUPN ---
<Rupesh Jimenez - Last Filed: 06/02/18 17:04> CCU Subjective - Physician Review Subjective (Free Text): Rupesh Jimenez, PGY-1, CCU Progress Note for Dr. Horowitz Patient seen and examined at bedside. As per previous notes, patient has not had a bowel movement since 05/23. Patient has had multiple episodes of nonbilious, nonbloody vomitus over the past few days. Abdominal CT showed incarcerated ventral hernia with multiple loops of bowel in the left lower quadrant. Patient was taken for surgery today. Prior to surgery, patient was hypoxic in the 80s with 5L of NC. Patient was intubated prior to surgery and tolerated surgery well. 3450 mL of crystalloid fluid was given, 1 U of PRBCs and 2 U of FFP were given. 2 abdominal drains were placed. During the surgery, incidental appendectomy was performed, small bowel was resected, and jejunocecal anastamosis was made due to necrotic bowel found during exploratory laparatomy. Upon presentation, post surgery, patient was hypertensive with SBP in the 170s, intubated and sedated and saturating 100% on the ventilator. 12-point ROS was unattainable due to intubation status. CCU Objective - Vital Signs / Intake & Output Intake and Output (Last 8hrs): Intake & Output 06/02/18 06/02/18 06/02/18 06:59 14:59 22:59 Intake Total 546 Output Total 2852 Balance -2306 Weight 215 lb Intake: IV 546 antibiotic 500 heparin 46 Oral 0 Output: Gastric Amount 1800 Stomach 1800 Urine 1052 Urethral (Kelley) 252 Urine, Voided 800 Other: # Bowel Movements 0 - Physical Exam Head: Positive for: Atraumatic, Normocephalic Pupils: Positive for: PERRL Conjunctiva: Positive for: Normal Mouth: Positive for: Moist Mucous Membranes Neck: Positive for: Normal Range of Motion Respiratory/Chest: Positive for: Clear to Auscultation, Good Air Exchange. Negative for: Respiratory Distress, Accessory Muscle Use Cardiovascular: Positive for: Normal S1, S2, Tachycardic. Negative for: Murmurs Abdomen: Negative for: Tenderness, Distention, Peritoneal Signs Back: Positive for: Normal Inspection Upper Extremity: Positive for: Normal Inspection. Negative for: Cyanosis, Edema Lower Extremity: Positive for: Normal Inspection, Normal ROM, Tenderness, Other (Grangrenous left 2nd toe noted). Negative for: Edema, CALF TENDERNESS, Marek's Sign Skin: Positive for: Warm, Dry, Normal Color. Negative for: Rashes Psychiatric: Positive for: Other (intubated) - Medications Active Medications: Active Medications Generic Name Dose Route Start Last Admin Trade Name Freq PRN Reason Stop Dose Admin Acetaminophen 650 mg 05/21/18 20:42 05/30/18 01:30 Tylenol 325mg Tab PO 650 mg Q6H PRN Administration Fever >100.4 F Acetaminophen 650 mg 05/30/18 03:19 05/30/18 22:44 Tylenol 325mg Tab PO 650 mg Q4H PRN Administration Pain, moderate (4-7) Amlodipine Besylate 10 mg 05/22/18 10:00 06/02/18 09:34 Norvasc PO Not Given DAILY [facility] Aspirin 81 mg 05/28/18 10:00 06/01/18 10:17 Aspirin Chewable PO Not Given DAILY [facility] Atorvastatin Calcium 40 mg 05/23/18 10:00 06/02/18 09:33 Lipitor PO Not Given QOTHERDAY [facility] Clonidine HCl 0.3 mg 05/22/18 10:00 06/02/18 09:33 Catapres PO Not Given TID [facility] Dextrose 50 ml 05/23/18 16:44 Dextrose 50% Inj IVP ONCE PRN Hypoglycemia Furosemide 40 mg 05/28/18 18:00 06/02/18 11:54 Lasix IV Not Given BID [facility] Glipizide 10 mg 05/22/18 10:00 05/27/18 10:00 Glucotrol PO Not Given DAILY [facility] Hydralazine HCl 10 mg 05/31/18 06:15 06/01/18 11:47 Apresoline IV 10 mg Q6H PRN Administration Systolic Blood Pressure Hydralazine HCl 25 mg 05/31/18 06:15 06/02/18 05:37 Apresoline PO Not Given Q6H [facility] Hydromorphone HCl 0.5 mg 06/02/18 16:23 Dilaudid IVP Q15M PRN Pain, Moderate/Severe (4-10) Heparin Sodium/Sodium Chloride 25,000 units in 250 mls @ 16.248 mls/hr 05/30/18 03:19 05/31/18 10:20 Heparin 08516 Units/250ml 1/2 Normal Saline IV 0 units/kg/hr .[id number] PRN 0 mls/hr ADJUST RATE PER PROTOCOL Titration Protocol 18 UNITS/KG/HR Sodium Chloride 1,000 mls @ 50 mls/hr 06/01/18 11:00 06/01/18 11:36 Sodium Chloride 0.45% IV 50 mls/hr .Q20H [facility] Administration Metronidazole 500 mg in 100 mls @ 100 mls/hr 06/01/18 14:00 06/02/18 05:36 Flagyl IVPB 100 mls/hr Q8 [facility] Administration Protocol Linezolid 600 mg in 300 mls @ 200 mls/hr 06/01/18 13:30 06/02/18 10:00 Zyvox 600mg/300ml D5w IVPB 06/08/18 13:31 200 mls/hr Q12 [facility] Administration Protocol Aztreonam 100 mls @ 100 mls/hr 06/02/18 22:00 Azactam 1 Gm IVPB 06/09/18 22:01 Q12 [facility] Protocol Sodium Chloride 1,000 mls @ 75 mls/hr 06/02/18 12:00 06/02/18 13:47 Sodium Chloride 0.45% IV Not Given .[id number] [facility] Sodium Chloride 1,000 mls @ 125 mls/hr 06/02/18 16:30 Sodium Chloride 0.9% IV 06/02/18 18:31 .Q8H [facility] Insulin Human Lispro 0 units 05/21/18 22:00 06/02/18 11:54 Humalog High SC Not Given ACHS [facility] Protocol Insulin Lispro Protam/Lispro Human 10 units 05/25/18 16:30 06/02/18 08:18 Humalog Mix 75/25 SC Not Given ACBD [facility] Isosorbide Mononitrate 30 mg 05/22/18 06:00 06/02/18 05:37 Imdur Er PO Not Given 0600 [facility] Labetalol HCl 200 mg 05/30/18 06:54 06/02/18 09:34 Trandate PO Not Given BID [facility] Levalbuterol HCl 1.25 mg 05/26/18 14:00 06/02/18 14:21 Xopenex IH Not Given [id number] [facility] Meclizine HCl 25 mg 05/21/18 20:02 05/30/18 11:26 Antivert PO 25 mg TID PRN Administration dizzy Metoprolol Tartrate 50 mg 05/28/18 13:30 05/30/18 01:30 Lopressor PO 50 mg Q12H [facility] Administration Metoprolol Tartrate 5 mg 06/02/18 10:45 06/02/18 11:59 Lopressor IVP 5 mg Q6H [facility] Administration Nitroglycerin 1 ea 05/27/18 10:45 05/27/18 11:21 Nitro-Bid 2% Oint TOP Not Given Q8H [facility] Ondansetron HCl 4 mg 06/01/18 10:58 Zofran Inj IVP Q6H PRN Nausea/Vomiting Oxychlorosene Sodium 2 gm 06/02/18 10:00 Clorpactin Wcs-90 TOP DAILY [facility] Pantoprazole Sodium 40 mg 06/01/18 13:30 06/02/18 10:47 Protonix Inj IVP Not Given DAILY [facility] Silver Sulfadiazine 0 gm 05/22/18 18:00 06/02/18 11:55 Silvadene 1% 25 Gm TP Not Given BID [facility] Simethicone 80 mg 05/30/18 04:02 05/31/18 09:48 Mylicon Chew Tab PO 80 mg PCHS PRN Administration GI distress - Patient Studies Lab Studies: Microbiology Studies 06/01/18 14:00 Gram Stain - Final Foot - Right Wound Culture - Preliminary NO GROWTH AFTER 24 HOURS 05/27/18 15:37 Blood Culture - Final Blood NO GROWTH AFTER 5 DAYS Gram Stain - Final TEST NOT PERFORMED 05/27/18 15:37 Blood Culture - Final Blood NO GROWTH AFTER 5 DAYS Gram Stain - Final TEST NOT PERFORMED Lab Studies 06/02/18 06/02/18 06/02/18 Range/Units 11:23 10:05 10:05 WBC (4.5-11.0) 10^3/uL RBC (3.5-6.1) 10^6/uL Hgb (12.0-16.0) g/dL Hct (36.0-48.0) % MCV (80.0-105.0) fl MCH (25.0-35.0) pg MCHC (31.0-37.0) g/dl RDW (11.5-14.5) % Plt Count (120.0-450.0) 10^3/uL MPV (7.0-11.0) fl Neut % (Auto) (50.0-68.0) % Lymph % (Auto) (22.0-35.0) % Bennett % (Auto) (1.0-6.0) % Eos % (Auto) (1.5-5.0) % Baso % (Auto) (0.0-3.0) % Lymph # (Auto) (1.2-3.4) Bennett # (Auto) (0.1-0.6) Eos # (Auto) (0.0-0.7) Baso # (Auto) (0.0-2.0) K/mm3 Absolute Neuts (auto) (1.4-6.5) PT 23.6 H (9.4-12.5) SECONDS INR 2.09 APTT 34.5 (26.9-38.3) Seconds Sodium 141 (132-148) mmol/L Potassium 4.6 (3.6-5.0) mmol/L Chloride 108 H (98-107) mmol/L Carbon Dioxide 19 L (21-33) mmol/L Anion Gap 18 (10-20) BUN 77 H (7-21) mg/dL Creatinine 3.5 H (0.7-1.2) mg/dl Est GFR ( Amer) 16 Est GFR (Non-Af Amer) 13 POC Glucose (mg/dL) 216 H (65-110) mg/dL Random Glucose 161 H (70-110) mg/dL Calcium 8.7 (8.4-10.5) mg/dL Phosphorus 6.5 H (2.5-4.5) mg/dL Magnesium 2.6 H (1.7-2.2) mg/dL Total Bilirubin 1.4 H (0.2-1.3) mg/dL AST 30 (14-36) U/L ALT 30 (7-56) U/L Alkaline Phosphatase 154 H (38-126) U/L Total Protein 6.1 (5.8-8.3) g/dL Albumin 3.0 (3.0-4.8) g/dL Globulin 3.1 gm/dL Albumin/Globulin Ratio 1.0 L (1.1-1.8) Blood Type Antibody Screen Crossmatch BBK History Checked 06/02/18 06/02/18 06/02/18 Range/Units 09:50 07:41 06:20 WBC 23.6 H D (4.5-11.0) 10^3/uL RBC 3.46 L (3.5-6.1) 10^6/uL Hgb 8.6 L (12.0-16.0) g/dL Hct 27.7 L (36.0-48.0) % MCV 80.1 (80.0-105.0) fl MCH 24.9 L (25.0-35.0) pg MCHC 31.0 (31.0-37.0) g/dl RDW 17.5 H (11.5-14.5) % Plt Count 293 (120.0-450.0) 10^3/uL MPV 9.0 (7.0-11.0) fl Neut % (Auto) 91.6 H (50.0-68.0) % Lymph % (Auto) 4.7 L (22.0-35.0) % Bennett % (Auto) 3.3 (1.0-6.0) % Eos % (Auto) 0.2 L (1.5-5.0) % Baso % (Auto) 0.2 (0.0-3.0) % Lymph # (Auto) 1.1 L (1.2-3.4) Bennett # (Auto) 0.8 H (0.1-0.6) Eos # (Auto) 0.0 (0.0-0.7) Baso # (Auto) 0.04 (0.0-2.0) K/mm3 Absolute Neuts (auto) 21.62 H (1.4-6.5) PT (9.4-12.5) SECONDS INR APTT (26.9-38.3) Seconds Sodium 140 (132-148) mmol/L Potassium 4.4 (3.6-5.0) mmol/L Chloride 108 H (98-107) mmol/L Carbon Dioxide 20 L (21-33) mmol/L Anion Gap 17 (10-20) BUN 79 H (7-21) mg/dL Creatinine 3.5 H (0.7-1.2) mg/dl Est GFR ( Amer) 16 Est GFR (Non-Af Amer) 13 POC Glucose (mg/dL) 200 H (65-110) mg/dL Random Glucose 182 H (70-110) mg/dL Calcium 8.6 (8.4-10.5) mg/dL Phosphorus (2.5-4.5) mg/dL Magnesium (1.7-2.2) mg/dL Total Bilirubin (0.2-1.3) mg/dL AST (14-36) U/L ALT (7-56) U/L Alkaline Phosphatase (38-126) U/L Total Protein (5.8-8.3) g/dL Albumin (3.0-4.8) g/dL Globulin gm/dL Albumin/Globulin Ratio (1.1-1.8) Blood Type Antibody Screen Crossmatch BBK History Checked 06/01/18 06/01/18 06/01/18 Range/Units 21:31 16:40 16:30 WBC (4.5-11.0) 10^3/uL RBC (3.5-6.1) 10^6/uL Hgb (12.0-16.0) g/dL Hct (36.0-48.0) % MCV (80.0-105.0) fl MCH (25.0-35.0) pg MCHC (31.0-37.0) g/dl RDW (11.5-14.5) % Plt Count (120.0-450.0) 10^3/uL MPV (7.0-11.0) fl Neut % (Auto) (50.0-68.0) % Lymph % (Auto) (22.0-35.0) % Bennett % (Auto) (1.0-6.0) % Eos % (Auto) (1.5-5.0) % Baso % (Auto) (0.0-3.0) % Lymph # (Auto) (1.2-3.4) Bennett # (Auto) (0.1-0.6) Eos # (Auto) (0.0-0.7) Baso # (Auto) (0.0-2.0) K/mm3 Absolute Neuts (auto) (1.4-6.5) PT (9.4-12.5) SECONDS INR APTT (26.9-38.3) Seconds Sodium (132-148) mmol/L Potassium (3.6-5.0) mmol/L Chloride (98-107) mmol/L Carbon Dioxide (21-33) mmol/L Anion Gap (10-20) BUN (7-21) mg/dL Creatinine (0.7-1.2) mg/dl Est GFR ( Amer) Est GFR (Non-Af Amer) POC Glucose (mg/dL) 216 H 197 H (65-110) mg/dL Random Glucose (70-110) mg/dL Calcium (8.4-10.5) mg/dL Phosphorus (2.5-4.5) mg/dL Magnesium (1.7-2.2) mg/dL Total Bilirubin (0.2-1.3) mg/dL AST (14-36) U/L ALT (7-56) U/L Alkaline Phosphatase (38-126) U/L Total Protein (5.8-8.3) g/dL Albumin (3.0-4.8) g/dL Globulin gm/dL Albumin/Globulin Ratio (1.1-1.8) Blood Type B POSITIVE Antibody Screen Negative Crossmatch See Detail BBK History Checked Patient has bt Laboratory Results - last 24 hr 06/01/18 06/01/18 06/01/18 16:30 16:40 21:31 WBC RBC Hgb Hct MCV MCH MCHC RDW Plt Count MPV Neut % (Auto) Lymph % (Auto) Bennett % (Auto) Eos % (Auto) Baso % (Auto) Lymph # (Auto) Bennett # (Auto) Eos # (Auto) Baso # (Auto) Absolute Neuts (auto) PT INR APTT Sodium Potassium Chloride Carbon Dioxide Anion Gap BUN Creatinine Est GFR ( Amer) Est GFR (Non-Af Amer) POC Glucose (mg/dL) 197 H 216 H Random Glucose Calcium Phosphorus Magnesium Total Bilirubin AST ALT Alkaline Phosphatase Total Protein Albumin Globulin Albumin/Globulin Ratio Blood Type B POSITIVE Antibody Screen Negative Crossmatch See Detail BBK History Checked Patient has bt 06/02/18 06/02/18 06/02/18 06:20 07:41 09:50 WBC 23.6 H D RBC 3.46 L Hgb 8.6 L Hct 27.7 L MCV 80.1 MCH 24.9 L MCHC 31.0 RDW 17.5 H Plt Count 293 MPV 9.0 Neut % (Auto) 91.6 H Lymph % (Auto) 4.7 L Bennett % (Auto) 3.3 Eos % (Auto) 0.2 L Baso % (Auto) 0.2 Lymph # (Auto) 1.1 L Bennett # (Auto) 0.8 H Eos # (Auto) 0.0 Baso # (Auto) 0.04 Absolute Neuts (auto) 21.62 H PT INR APTT Sodium 140 Potassium 4.4 Chloride 108 H Carbon Dioxide 20 L Anion Gap 17 BUN 79 H Creatinine 3.5 H Est GFR ( Amer) 16 Est GFR (Non-Af Amer) 13 POC Glucose (mg/dL) 200 H Random Glucose 182 H Calcium 8.6 Phosphorus Magnesium Total Bilirubin AST ALT Alkaline Phosphatase Total Protein Albumin Globulin Albumin/Globulin Ratio Blood Type Antibody Screen Crossmatch BBK History Checked 06/02/18 06/02/18 06/02/18 10:05 10:05 11:23 WBC RBC Hgb Hct MCV MCH MCHC RDW Plt Count MPV Neut % (Auto) Lymph % (Auto) Bennett % (Auto) Eos % (Auto) Baso % (Auto) Lymph # (Auto) Bennett # (Auto) Eos # (Auto) Baso # (Auto) Absolute Neuts (auto) PT 23.6 H INR 2.09 APTT 34.5 Sodium 141 Potassium 4.6 Chloride 108 H Carbon Dioxide 19 L Anion Gap 18 BUN 77 H Creatinine 3.5 H Est GFR ( Amer) 16 Est GFR (Non-Af Amer) 13 POC Glucose (mg/dL) 216 H Random Glucose 161 H Calcium 8.7 Phosphorus 6.5 H Magnesium 2.6 H Total Bilirubin 1.4 H AST 30 ALT 30 Alkaline Phosphatase 154 H Total Protein 6.1 Albumin 3.0 Globulin 3.1 Albumin/Globulin Ratio 1.0 L Blood Type Antibody Screen Crossmatch BBK History Checked Fingerstick Blood Sugar Results: 216 Review of Systems - Review of Systems Systems not reviewed;Unavailable: Intubated Critical Care Progress Note - Ventilator Checklist Head of Bed 30 Degrees: Yes PUD Prophalyxis: Yes DVT Prophylaxis: Yes - Vent Settings MODE:: PRVC - Nutrition Nutrition: Nutrition Category Date Time Status NPO Diet [DIET] Diets 06/01/18 Lunch Ordered Assessment/Plan - Assessment and Plan (Free Text) Assessment: 67 year old with past medical history of type II diabetes mellitus, HTN, HLD, CAD, atrial fibrillation on coumadin, abdominal hernia, CVA who presents intubated for hypoxic respiratory failure status post incarcerated ventral hernia surgery with small bowel resection and jejunocecal anastamosis. Patient currently is saturating at 100%. Plan: Neuro: -Intubated and sedated with propofol. Cardio: Atrial fibrillation -EKG: atrial fibrillation with HR of 92. -Echocardiogram: 74%, biatrial enlargement -Troponin: <0.01, 0.02 on 05/28. -Therapeutic heparin held due to surgery today. -Maintain MAP>65. -Monitor for S/S, HD compromise. Hypertension -Patient currently hypertensive with SBP in 170s -Continue with hydralazine, metoprolol, labetalol for hypertension -Monitor blood pressure closely as propofol drip can cause hypotension. Pulm: Cardiogenic vs. Noncardiogenic pulmonary edema -ABG 06/01: pH: 7.44, pO2: 51, pCO2: 27 -CXR 06/01: possible bilateral pulmonary infiltrates -Follow up chest X ray today. -Follow up repeat ABG -Lasix should be given as necessary for worsening pulmonary edema -Maintain O2 saturation>90%. -Head of bed to 30 degrees -Conservative fluid management -Maintain oral hygiene -Daily ABG and CXR -Daily sedation and weaning trials. Tobacco Abuse -No official diagnosis of COPD -Patient currently not hypercarbic -Duonebs Q2PRN for shortness of breath GI: Small bowel obstruction 2/2 to incarcerated ventral hernia -Afebrile, leukocytosis worsened at 23.6 -Abdominal CT: showed incarcerated bowel in left lower quadrant of abdomen. -Patient is status post colectomy with jejunocecal anastamosis and and resting comfortably with intubation and sedation with propofol. -Continue with flagyl and aztreonam. -Monitor for signs and symptoms of infection. Diet -NPO GI prophylaxis -Protonix 40 mg daily /Nephro: GILBERTO -BUN/Cr elevated at 77/3.5 -Good urine output -Consider lasix for diuresis for increased pulmonary edema -Continue with NS at 75 cc/hr -Continue monitoring. -Replete electrolytes as needed. -Maintain euvolemia. Endocrinology: -Random glucose: 216 -High SSI -Maintain euglycemia. Heme/Onc: Normocytic Anemia -H/H stable at 8.6/27.7 -No signs of HD compromise. -Continue monitoring H/H DVT prophylaxis -SCD, hold anticoagulation due to recent surgery ID/Surgery Ischemic bowel 2/2 to incarcerated ventral hernia -Afebrile, leukocytosis worsened at 23.6 -Blood culture: negative for 5 days -Urine Culture: negative -Lactate: 1.4 -Patient is status post colectomy and resting comfortably with intubation and sedation with propofol. -Continue with flagyl and aztreonam. -Monitor for signs and symptoms of infection. Osteomyelitis of left 2nd Toe -Continue with antibiotics as per ID -Continue with oxychlorosene as per podiatry -Podiatry drained pus from wound and is likely to go for surgery on . Patient seen and examined with Dr. Horowitz. - Date & Time Date: 06/02/18 Time: 17:32 <Maribel Horowitz - Last Filed: 06/08/18 18:50> CCU Objective - Vital Signs / Intake & Output Intake and Output (Last 8hrs): Intake & Output 06/08/18 06/08/18 06/08/18 06:59 14:59 22:59 Intake Total 600 Output Total 225 Balance 375 Intake: IV 600 Right Upper arm 600 Output: Drainage 75 Left 60 Right 15 Urine 150 Urethral (Kelley) 150 - Medications Active Medications: Active Medications Generic Name Dose Route Start Last Admin Trade Name Freq PRN Reason Stop Dose Admin Acetaminophen 650 mg 05/21/18 20:42 05/30/18 01:30 Tylenol 325mg Tab PO 650 mg Q6H PRN Administration Fever >100.4 F Acetylcysteine 4 ml 06/07/18 08:30 06/08/18 08:13 Acetylcysteine 20% IH 4 ml [id number] [facility] Administration Albuterol/Ipratropium 3 ml 06/02/18 18:21 Duoneb 3 Mg/0.5 Mg (3 Ml) Ud IH Q2H PRN Shortness of Breath Amlodipine Besylate 10 mg 05/22/18 10:00 06/02/18 09:34 Norvasc PO Not Given DAILY [facility] Aspirin 81 mg 05/28/18 10:00 06/08/18 09:45 Aspirin Chewable PO 81 mg DAILY [facility] Administration Atorvastatin Calcium 40 mg 05/23/18 10:00 06/08/18 09:45 Lipitor PO 40 mg QOTHERDAY [facility] Administration Clonidine HCl 0.3 mg 05/22/18 10:00 06/03/18 10:50 Catapres PO Not Given TID [facility] Furosemide 40 mg 06/04/18 22:00 06/08/18 09:48 Lasix IVP Not Given Q12 [facility] Heparin Sodium (Porcine) 5,000 units 06/02/18 22:00 06/08/18 15:17 Heparin SC 5,000 units Q8 [facility] Administration Protocol Hydralazine HCl 25 mg 05/31/18 06:15 06/02/18 05:37 Apresoline PO Not Given Q6H [facility] Hydromorphone HCl 0.5 mg 06/03/18 11:47 06/08/18 02:52 Dilaudid IVP 0.5 mg Q4H PRN Administration Pain, moderate (4-7) Meropenem/Sodium Chloride 500 mg in 50 mls @ 100 mls/hr 06/08/18 11:18 03/16 12:15 Merrem Iv 500 Mg/Ns 50 Ml IVPB 06/15/18 11:19 100 mls/hr Q12 [facility] Administration Protocol Vasopressin 20 units/ Sodium 101 mls @ 9.09 mls/hr 06/08/18 13:45 06/08/18 13:45 Chloride IV 9.09 mls/hr .[id number] [facility] Administration Protocol 0.03 U/MIN Sodium Bicarbonate 150 meq/ 1,150 mls @ 100 mls/hr 06/08/18 14:30 06/08/18 14:55 Dextrose IV 100 mls/hr .[id number] [facility] Administration NOREPINEPHRINE BIT/0.9 % NACL 4 mg in 250 mls @ 15 mls/hr 06/08/18 15:53 Levophed 4 Mg/ 250 Ml Ns Premixed IV .[id number] PRN TITRATE PER MD ORDER Protocol 4 MCG/MIN Insulin Human Lispro 0 units 05/21/18 22:00 06/08/18 18:22 Humalog High SC Not Given ACHS [facility] Protocol Insulin Lispro Protam/Lispro Human 10 units 05/25/18 16:30 06/08/18 18:22 Humalog Mix 75/25 SC Not Given ACBD [facility] Levalbuterol HCl 1.25 mg 05/26/18 14:00 06/08/18 13:57 Xopenex IH 1.25 mg [id number] [facility] Administration Metoprolol Tartrate 50 mg 05/28/18 13:30 05/30/18 01:30 Lopressor PO 50 mg Q12H [facility] Administration Ondansetron HCl 4 mg 06/01/18 10:58 Zofran Inj IVP Q6H PRN Nausea/Vomiting Oxychlorosene Sodium 2 gm 06/02/18 10:00 06/08/18 15:15 Clorpactin Wcs-90 TOP Not Given DAILY [facility] Pantoprazole Sodium 40 mg 06/08/18 13:15 06/08/18 14:35 Protonix Inj IV 40 mg Q12H [facility] Administration Simethicone 80 mg 05/30/18 04:02 05/31/18 09:48 Mylicon Chew Tab PO 80 mg PCHS PRN Administration GI distress - Patient Studies Lab Studies: Microbiology Studies 06/07/18 10:40 Blood Culture - Preliminary Blood-Venous NO GROWTH AFTER 24 HOURS 06/07/18 10:15 Blood Culture - Preliminary Blood-Venous NO GROWTH AFTER 24 HOURS Lab Studies 06/08/18 06/08/18 06/08/18 Range/Units 14:00 14:00 13:35 WBC 22.3 H (4.5-11.0) 10^3/uL RBC 2.75 L (3.5-6.1) 10^6/uL Hgb 7.4 L (12.0-16.0) g/dL Hct 24.8 L (36.0-48.0) % MCV 90.2 D (80.0-105.0) fl MCH 26.9 (25.0-35.0) pg MCHC 29.8 L (31.0-37.0) g/dl RDW 19.8 H (11.5-14.5) % Plt Count 187 (120.0-450.0) 10^3/uL MPV 9.7 (7.0-11.0) fl Neut % (Auto) 93.2 H (50.0-68.0) % Lymph % (Auto) 5.3 L (22.0-35.0) % Bennett % (Auto) 1.5 (1.0-6.0) % Eos % (Auto) 0.0 L (1.5-5.0) % Baso % (Auto) 0.0 (0.0-3.0) % Lymph # (Auto) 1.2 (1.2-3.4) Bennett # (Auto) 0.3 (0.1-0.6) Eos # (Auto) 0.0 (0.0-0.7) Baso # (Auto) 0.01 (0.0-2.0) K/mm3 Absolute Neuts (auto) 20.80 H (1.4-6.5) pCO2 28 L (35-45) mm/Hg pO2 78.0 L (80-100) mm/Hg HCO3 5.1 L* (21-28) mmol/L ABG pH 6.87 L* (7.35-7.45) ABG Total CO2 6.0 L (22-28) mmol.L ABG O2 Saturation 95.2 (95-98) % ABG O2 Content 8.5 L (15-23) ML/dl ABG Base Excess -26.1 L (-2.0-3.0) mmol/L ABG Hemoglobin 6.5 L (11.7-17.4) g/dL ABG Carboxyhemoglobin 2.9 H (0.5-1.5) % POC ABG HHb (Measured) 4.6 (0-5) % ABG Methemoglobin 1.7 (0.0-3.0) % ABG O2 Capacity 8.9 L (16-24) mL/dl Hgb O2 Saturation 90.9 L (95.0-98.0) % FiO2 100.0 % Crit Value Called To catherine Cerna Crit Value Called By katie Barbosa Blood Gas Notified Time 1349 Sodium 145 (132-148) mmol/L Potassium 5.9 H* (3.6-5.0) mmol/L Chloride 115 H (98-107) mmol/L Carbon Dioxide 11 L (21-33) mmol/L Anion Gap 24 H (10-20) BUN 88 H (7-21) mg/dL Creatinine 3.1 H (0.7-1.2) mg/dl Est GFR ( Amer) 18 Est GFR (Non-Af Amer) 15 POC Glucose (mg/dL) (65-110) mg/dL Random Glucose 178 H (70-110) mg/dL Calcium 7.9 L (8.4-10.5) mg/dL Total Bilirubin 5.8 H (0.2-1.3) mg/dL Direct Bilirubin 5.4 H (0.0-0.4) mg/dL AST 334 H D (14-36) U/L ALT 73 H (7-56) U/L Alkaline Phosphatase 78 (38-126) U/L Total Protein 5.2 L (5.8-8.3) g/dL Albumin 2.2 L (3.0-4.8) g/dL Globulin 3.0 gm/dL Albumin/Globulin Ratio 0.7 L (1.1-1.8) Blood Type Antibody Screen Crossmatch BBK History Checked 06/08/18 06/08/18 06/08/18 Range/Units 12:30 07:17 06:30 WBC (4.5-11.0) 10^3/uL RBC (3.5-6.1) 10^6/uL Hgb (12.0-16.0) g/dL Hct (36.0-48.0) % MCV (80.0-105.0) fl MCH (25.0-35.0) pg MCHC (31.0-37.0) g/dl RDW (11.5-14.5) % Plt Count (120.0-450.0) 10^3/uL MPV (7.0-11.0) fl Neut % (Auto) (50.0-68.0) % Lymph % (Auto) (22.0-35.0) % Bennett % (Auto) (1.0-6.0) % Eos % (Auto) (1.5-5.0) % Baso % (Auto) (0.0-3.0) % Lymph # (Auto) (1.2-3.4) Bennett # (Auto) (0.1-0.6) Eos # (Auto) (0.0-0.7) Baso # (Auto) (0.0-2.0) K/mm3 Absolute Neuts (auto) (1.4-6.5) pCO2 (35-45) mm/Hg pO2 (80-100) mm/Hg HCO3 (21-28) mmol/L ABG pH (7.35-7.45) ABG Total CO2 (22-28) mmol.L ABG O2 Saturation (95-98) % ABG O2 Content (15-23) ML/dl ABG Base Excess (-2.0-3.0) mmol/L ABG Hemoglobin (11.7-17.4) g/dL ABG Carboxyhemoglobin (0.5-1.5) % POC ABG HHb (Measured) (0-5) % ABG Methemoglobin (0.0-3.0) % ABG O2 Capacity (16-24) mL/dl Hgb O2 Saturation (95.0-98.0) % FiO2 % Crit Value Called To Crit Value Called By Blood Gas Notified Time Sodium 145 (132-148) mmol/L Potassium 5.5 H (3.6-5.0) mmol/L Chloride 117 H (98-107) mmol/L Carbon Dioxide 12 L (21-33) mmol/L Anion Gap 21 H (10-20) BUN 93 H (7-21) mg/dL Creatinine 2.8 H (0.7-1.2) mg/dl Est GFR ( Amer) 20 Est GFR (Non-Af Amer) 17 POC Glucose (mg/dL) 145 H (65-110) mg/dL Random Glucose 166 H (70-110) mg/dL Calcium 8.3 L (8.4-10.5) mg/dL Total Bilirubin 5.1 H (0.2-1.3) mg/dL Direct Bilirubin (0.0-0.4) mg/dL AST 72 H D (14-36) U/L ALT 17 (7-56) U/L Alkaline Phosphatase 83 (38-126) U/L Total Protein 5.8 (5.8-8.3) g/dL Albumin 2.5 L (3.0-4.8) g/dL Globulin 3.3 gm/dL Albumin/Globulin Ratio 0.8 L (1.1-1.8) Blood Type B POSITIVE Antibody Screen Negative Crossmatch See Detail BBK History Checked Patient has bt 06/08/18 06/07/18 06/07/18 Range/Units 06:30 21:32 16:29 WBC 22.9 H (4.5-11.0) 10^3/uL RBC 3.04 L (3.5-6.1) 10^6/uL Hgb 8.1 L (12.0-16.0) g/dL Hct 26.5 L (36.0-48.0) % MCV 87.2 D (80.0-105.0) fl MCH 26.6 (25.0-35.0) pg MCHC 30.6 L (31.0-37.0) g/dl RDW 19.6 H (11.5-14.5) % Plt Count 210 (120.0-450.0) 10^3/uL MPV 9.8 (7.0-11.0) fl Neut % (Auto) 94.4 H (50.0-68.0) % Lymph % (Auto) 3.2 L (22.0-35.0) % Bennett % (Auto) 2.3 (1.0-6.0) % Eos % (Auto) 0.0 L (1.5-5.0) % Baso % (Auto) 0.1 (0.0-3.0) % Lymph # (Auto) 0.7 L (1.2-3.4) Bennett # (Auto) 0.5 (0.1-0.6) Eos # (Auto) 0.0 (0.0-0.7) Baso # (Auto) 0.02 (0.0-2.0) K/mm3 Absolute Neuts (auto) 21.58 H (1.4-6.5) pCO2 (35-45) mm/Hg pO2 (80-100) mm/Hg HCO3 (21-28) mmol/L ABG pH (7.35-7.45) ABG Total CO2 (22-28) mmol.L ABG O2 Saturation (95-98) % ABG O2 Content (15-23) ML/dl ABG Base Excess (-2.0-3.0) mmol/L ABG Hemoglobin (11.7-17.4) g/dL ABG Carboxyhemoglobin (0.5-1.5) % POC ABG HHb (Measured) (0-5) % ABG Methemoglobin (0.0-3.0) % ABG O2 Capacity (16-24) mL/dl Hgb O2 Saturation (95.0-98.0) % FiO2 % Crit Value Called To Crit Value Called By Blood Gas Notified Time Sodium (132-148) mmol/L Potassium (3.6-5.0) mmol/L Chloride (98-107) mmol/L Carbon Dioxide (21-33) mmol/L Anion Gap (10-20) BUN (7-21) mg/dL Creatinine (0.7-1.2) mg/dl Est GFR ( Amer) Est GFR (Non-Af Amer) POC Glucose (mg/dL) 214 H 183 H (65-110) mg/dL Random Glucose (70-110) mg/dL Calcium (8.4-10.5) mg/dL Total Bilirubin (0.2-1.3) mg/dL Direct Bilirubin (0.0-0.4) mg/dL AST (14-36) U/L ALT (7-56) U/L Alkaline Phosphatase (38-126) U/L Total Protein (5.8-8.3) g/dL Albumin (3.0-4.8) g/dL Globulin gm/dL Albumin/Globulin Ratio (1.1-1.8) Blood Type Antibody Screen Crossmatch BBK History Checked 06/02/18 Range/Units 10:30 WBC (4.5-11.0) 10^3/uL RBC (3.5-6.1) 10^6/uL Hgb (12.0-16.0) g/dL Hct (36.0-48.0) % MCV (80.0-105.0) fl MCH (25.0-35.0) pg MCHC (31.0-37.0) g/dl RDW (11.5-14.5) % Plt Count (120.0-450.0) 10^3/uL MPV (7.0-11.0) fl Neut % (Auto) (50.0-68.0) % Lymph % (Auto) (22.0-35.0) % Bennett % (Auto) (1.0-6.0) % Eos % (Auto) (1.5-5.0) % Baso % (Auto) (0.0-3.0) % Lymph # (Auto) (1.2-3.4) Bennett # (Auto) (0.1-0.6) Eos # (Auto) (0.0-0.7) Baso # (Auto) (0.0-2.0) K/mm3 Absolute Neuts (auto) (1.4-6.5) pCO2 (35-45) mm/Hg pO2 (80-100) mm/Hg HCO3 (21-28) mmol/L ABG pH (7.35-7.45) ABG Total CO2 (22-28) mmol.L ABG O2 Saturation (95-98) % ABG O2 Content (15-23) ML/dl ABG Base Excess (-2.0-3.0) mmol/L ABG Hemoglobin (11.7-17.4) g/dL ABG Carboxyhemoglobin (0.5-1.5) % POC ABG HHb (Measured) (0-5) % ABG Methemoglobin (0.0-3.0) % ABG O2 Capacity (16-24) mL/dl Hgb O2 Saturation (95.0-98.0) % FiO2 % Crit Value Called To Crit Value Called By Blood Gas Notified Time Sodium (132-148) mmol/L Potassium (3.6-5.0) mmol/L Chloride (98-107) mmol/L Carbon Dioxide (21-33) mmol/L Anion Gap (10-20) BUN (7-21) mg/dL Creatinine (0.7-1.2) mg/dl Est GFR ( Amer) Est GFR (Non-Af Amer) POC Glucose (mg/dL) (65-110) mg/dL Random Glucose (70-110) mg/dL Calcium (8.4-10.5) mg/dL Total Bilirubin (0.2-1.3) mg/dL Direct Bilirubin (0.0-0.4) mg/dL AST (14-36) U/L ALT (7-56) U/L Alkaline Phosphatase (38-126) U/L Total Protein (5.8-8.3) g/dL Albumin (3.0-4.8) g/dL Globulin gm/dL Albumin/Globulin Ratio (1.1-1.8) Blood Type Antibody Screen Crossmatch See Detail BBK History Checked Laboratory Results - last 24 hr 06/02/18 06/07/18 06/07/18 10:30 16:29 21:32 WBC RBC Hgb Hct MCV MCH MCHC RDW Plt Count MPV Neut % (Auto) Lymph % (Auto) Bennett % (Auto) Eos % (Auto) Baso % (Auto) Lymph # (Auto) Bennett # (Auto) Eos # (Auto) Baso # (Auto) Absolute Neuts (auto) pCO2 pO2 HCO3 ABG pH ABG Total CO2 ABG O2 Saturation ABG O2 Content ABG Base Excess ABG Hemoglobin ABG Carboxyhemoglobin POC ABG HHb (Measured) ABG Methemoglobin ABG O2 Capacity Hgb O2 Saturation FiO2 Crit Value Called To Crit Value Called By Blood Gas Notified Time Sodium Potassium Chloride Carbon Dioxide Anion Gap BUN Creatinine Est GFR ( Amer) Est GFR (Non-Af Amer) POC Glucose (mg/dL) 183 H 214 H Random Glucose Calcium Total Bilirubin Direct Bilirubin AST ALT Alkaline Phosphatase Total Protein Albumin Globulin Albumin/Globulin Ratio Blood Type Antibody Screen Crossmatch See Detail BBK History Checked 06/08/18 06/08/18 06/08/18 06:30 06:30 07:17 WBC 22.9 H RBC 3.04 L Hgb 8.1 L Hct 26.5 L MCV 87.2 D MCH 26.6 MCHC 30.6 L RDW 19.6 H Plt Count 210 MPV 9.8 Neut % (Auto) 94.4 H Lymph % (Auto) 3.2 L Bennett % (Auto) 2.3 Eos % (Auto) 0.0 L Baso % (Auto) 0.1 Lymph # (Auto) 0.7 L Bennett # (Auto) 0.5 Eos # (Auto) 0.0 Baso # (Auto) 0.02 Absolute Neuts (auto) 21.58 H pCO2 pO2 HCO3 ABG pH ABG Total CO2 ABG O2 Saturation ABG O2 Content ABG Base Excess ABG Hemoglobin ABG Carboxyhemoglobin POC ABG HHb (Measured) ABG Methemoglobin ABG O2 Capacity Hgb O2 Saturation FiO2 Crit Value Called To Crit Value Called By Blood Gas Notified Time Sodium 145 Potassium 5.5 H Chloride 117 H Carbon Dioxide 12 L Anion Gap 21 H BUN 93 H Creatinine 2.8 H Est GFR ( Amer) 20 Est GFR (Non-Af Amer) 17 POC Glucose (mg/dL) 145 H Random Glucose 166 H Calcium 8.3 L Total Bilirubin 5.1 H Direct Bilirubin AST 72 H D ALT 17 Alkaline Phosphatase 83 Total Protein 5.8 Albumin 2.5 L Globulin 3.3 Albumin/Globulin Ratio 0.8 L Blood Type Antibody Screen Crossmatch BBK History Checked 06/08/18 06/08/18 06/08/18 12:30 13:35 14:00 WBC 22.3 H RBC 2.75 L Hgb 7.4 L Hct 24.8 L MCV 90.2 D MCH 26.9 MCHC 29.8 L RDW 19.8 H Plt Count 187 MPV 9.7 Neut % (Auto) 93.2 H Lymph % (Auto) 5.3 L Bennett % (Auto) 1.5 Eos % (Auto) 0.0 L Baso % (Auto) 0.0 Lymph # (Auto) 1.2 Bennett # (Auto) 0.3 Eos # (Auto) 0.0 Baso # (Auto) 0.01 Absolute Neuts (auto) 20.80 H pCO2 28 L pO2 78.0 L HCO3 5.1 L* ABG pH 6.87 L* ABG Total CO2 6.0 L ABG O2 Saturation 95.2 ABG O2 Content 8.5 L ABG Base Excess -26.1 L ABG Hemoglobin 6.5 L ABG Carboxyhemoglobin 2.9 H POC ABG HHb (Measured) 4.6 ABG Methemoglobin 1.7 ABG O2 Capacity 8.9 L Hgb O2 Saturation 90.9 L FiO2 100.0 Crit Value Called To catherine Cerna Crit Value Called By katie Barbosa Blood Gas Notified Time 1349 Sodium Potassium Chloride Carbon Dioxide Anion Gap BUN Creatinine Est GFR ( Amer) Est GFR (Non-Af Amer) POC Glucose (mg/dL) Random Glucose Calcium Total Bilirubin Direct Bilirubin AST ALT Alkaline Phosphatase Total Protein Albumin Globulin Albumin/Globulin Ratio Blood Type B POSITIVE Antibody Screen Negative Crossmatch See Detail BBK History Checked Patient has bt 06/08/18 14:00 WBC RBC Hgb Hct MCV MCH MCHC RDW Plt Count MPV Neut % (Auto) Lymph % (Auto) Bennett % (Auto) Eos % (Auto) Baso % (Auto) Lymph # (Auto) Bennett # (Auto) Eos # (Auto) Baso # (Auto) Absolute Neuts (auto) pCO2 pO2 HCO3 ABG pH ABG Total CO2 ABG O2 Saturation ABG O2 Content ABG Base Excess ABG Hemoglobin ABG Carboxyhemoglobin POC ABG HHb (Measured) ABG Methemoglobin ABG O2 Capacity Hgb O2 Saturation FiO2 Crit Value Called To Crit Value Called By Blood Gas Notified Time Sodium 145 Potassium 5.9 H* Chloride 115 H Carbon Dioxide 11 L Anion Gap 24 H BUN 88 H Creatinine 3.1 H Est GFR ( Amer) 18 Est GFR (Non-Af Amer) 15 POC Glucose (mg/dL) Random Glucose 178 H Calcium 7.9 L Total Bilirubin 5.8 H Direct Bilirubin 5.4 H AST 334 H D ALT 73 H Alkaline Phosphatase 78 Total Protein 5.2 L Albumin 2.2 L Globulin 3.0 Albumin/Globulin Ratio 0.7 L Blood Type Antibody Screen Crossmatch BBK History Checked Radiology Impressions: Radiology Impressions Chest X-Ray 06/08/18 05:00 IMPRESSION: Stable multifocal infiltrates primarily affecting right lung. Less pronounced changes identified left lung. Chest X-Ray 06/08/18 11:12 IMPRESSION: The endotracheal and nasogastric tubes are in satisfactory position. There is a right IJ line terminating at the junction of the SVC and right atrium. There is no pneumothorax. Extensive right lower lobe infiltrate and diffuse interstitial infiltrate in both lungs Addendum Addendum: 06/02/18 18:48 patient seen and examined on 06/02 with housestaff while patient still in PACU agree with progress note above with the following add/exceptions 67 F with diabetes mellitus, HTN, HLD, CAD, atrial fibrillation on coumadin, abdominal hernia, CVA who presents intubated for hypoxic respiratory failure taken to OR today for incarcerated ventral hernia now s/p small bowel resection and jejunocecal anastamosis. Hypoxic preop now remains on vent Will cont to keep her ventilated overnight repeat ABG and titatrate down fio2 pain control as per surg NPO for now DVT ppx with SCDs resume ac when ok with surg plan weaning trial in AM rest of care as above Zoila Horowitz MD MICU Attending
[2018-06-02] MEDS ORDERED: Albuterol-Ipratrop 3 mg / 0.5 (3 ml) UD IH PRN (18:21)
[2018-06-02] MEDS: Oxychlorosene Topical 2 gm Packet TOP SCH (18:41)
[2018-06-02] MEDS ORDERED: Fentanyl 1000mcg/100ml NS 1,000 MCG/100 ML BAG IV PRN (20:14)
[2018-06-02] MEDS: Propofol 10 mg/ml 1,000 MG/100 ML VIAL IV PRN (21:09)
--- NOTE | 2018-06-03 00:49 | PN ---
DATE: 06/02/2018 SUBJECTIVE: The patient is seen lying in bed, on telemetry. She has had worsening abdominal pain and is suspected to have an incarcerated hernia. She is scheduled for urgent abdominal surgery later today. MEDICATIONS: Her current medications include IV hydralazine p.r.n., oral hydralazine, aspirin, Azactam, Catapres, DuoNeb inhaler, Flagyl, Glucotrol, IV heparin, Imdur, Lasix, Lipitor, metoprolol 50 mg every 12 hours, Norvasc 10 mg daily, Protonix, labetalol 200 mg b.i.d., and Xopenex. OBJECTIVE: GENERAL: She is a middle-aged woman who appears uncomfortable due to abdominal discomfort. VITAL SIGNS: Her blood pressure is 170/70 with pulse of 100 in atrial fibrillation, respirations are 22. She is afebrile. HEENT: Normocephalic, atraumatic. NECK: No JVD. CHEST: Bibasilar rales. HEART: PMI displaced laterally with systolic murmur at the apex. ABDOMEN: Distended. Bowel sounds are hypoactive. A large firm mass is noted in her left lower quadrant at the site of previous incisional hernia. EXTREMITIES: Revealed 2+ leg edema. Her left foot is dressed. DIAGNOSTIC DATA: Potassium is 4.6. White count 23.6, hemoglobin and hematocrit 8.6 and 27.7 with a platelet count of 293,000. PT/INR 23.6 and 2.09. PTT is 35. Recent chest x-ray reveals improvement in the pulmonary vascular congestion pattern. IMPRESSION: 1. Apparent incarcerated incisional hernia in need of urgent surgical intervention. 2. Recent contrast induced nephropathy. Creatinine appeared to reach plateau stay at 3.5. 3. Coronary artery disease, status post remote percutaneous coronary intervention, clinically stable at present. 4. Recent decompensated congestive heart failure, acute diastolic secondary to volume overload. 5. Peripheral vascular disease, status post percutaneous intervention on her left leg. 6. Left second toe gangrene. 7. Hypertension with suboptimal control. 8. History of diabetes. RECOMMENDATIONS: From cardiac standpoint, she appears fairly optimized to proceed with urgent surgery at the present time. Given the urgency of surgery, further optimization is not possible. Correction of her coagulopathy with fresh frozen plasma at this time would be reasonable. Resumption of heparin postoperatively once stable would be advised given her chronic atrial fibrillation and peripheral vascular disease. Her oral antihypertensives will be placed on hold, and she will be treated with IV hydralazine and IV metoprolol through the perioperative phase. We will continue to follow any further recommendations as appropriate. Mauro Dowell MD MTDD
[2018-06-03] MEDS: Levalbuterol 1.25 MG/3 ML Inhal Soln UD IH SCH ×4 (01:42→20:12)
[2018-06-03] MEDS: Sodium Chloride 0.45% 1,000 ML IV SCH (02:00)
[2018-06-03] MEDS: Nitroglycerin 2% Ointment Foilpak UD TOP SCH ×3 (02:50→17:54)
[2018-06-03] MEDS: Propofol 10 mg/ml 1,000 MG/100 ML VIAL IV PRN (03:00)
[2018-06-03] MEDS: Metoprolol 1 mg/ml Inj IVP SCH ×4 (04:02→21:46)
[2018-06-03] MEDS: metroNIDAZOLE IV 500 mg/100 ml 500 MG/100 ML BAG IVPB SCH ×3 (05:08→21:28)
[2018-06-03 06:50] LABS: BASO # 0.02 K/mm3 (0.0-2.0); BASO % 0.1 % (0.0-3.0); EOS # 0.1 (0.0-0.7); EOS % 0.3 % (1.5-5.0); HEMOGLOBIN 7.3 g/dL (12.0-16.0); LYMPH # 1.1 (1.2-3.4); LYMPH % 5.1 % (22.0-35.0); MEAN CELL VOLUME 81.6 fl (80.0-105.0); MEAN CORPUSCULAR HEMOGLOBIN 26.4 pg (25.0-35.0); MEAN CORPUSCULAR HGB CONC 32.3 g/dl (31.0-37.0); MEAN PLATELET VOLUME 8.8 fl (7.0-11.0); MONO # 0.9 (0.1-0.6); MONO % 4.3 % (1.0-6.0); RBC 2.77 10^6/uL (3.5-6.1); RED CELL DISTRIBUTION WIDTH 17.2 % (11.5-14.5); WHITE BLOOD COUNT 20.9 10^3/uL (4.5-11.0)
[2018-06-03 06:55] LABS: CALCIUM 7.2 mg/dL (8.4-10.5)
--- NOTE | 2018-06-03 07:37 | CP.PCM.PN ---
<Sera Maciel - Last Filed: 06/03/18 10:43> Subjective - Date & Time of Evaluation Date of Evaluation: 06/03/18 Time of Evaluation: 06:30 - Subjective Subjective: Pgy3 Nephrology progress note for Dr. Watkins Patient seen and examined at bedside. POD#1 exlap, small bowel resection, incidental appendectomy, with jejunocecal anastamosis. Patient transferred to MICU postop as she was difficult to extubate. Overnight patient was intubated on vent (100, 5, 12, 500) and was sedated on propofol gtt. She was afebrile overnight and had no acute events. She made 450cc urine from meier. Complete ROS unobtainable. Objective - Vital Signs/Intake and Output Vital Signs (last 24 hours): Temp Pulse Resp BP Pulse Ox 97 F L 81 12 131/58 L 100 06/03/18 06:00 06/03/18 06:00 06/02/18 18:00 06/03/18 06:00 06/03/18 06:00 Intake and Output: 06/03/18 06/03/18 06:59 18:59 Intake Total 1700 Output Total 475 Balance 1225 - Medications Medications: Current Medications Acetaminophen (Tylenol 325mg Tab) 650 mg PO Q6H PRN PRN Reason: Fever >100.4 F Last Admin: 05/30/18 01:30 Dose: 650 mg Acetaminophen (Tylenol 325mg Tab) 650 mg PO Q4H PRN PRN Reason: Pain, moderate (4-7) Last Admin: 05/30/18 22:44 Dose: 650 mg Albuterol/Ipratropium (Duoneb 3 Mg/0.5 Mg (3 Ml) Ud) 3 ml IH Q2H PRN PRN Reason: Shortness of Breath Amlodipine Besylate (Norvasc) 10 mg PO DAILY [facility] Last Admin: 06/02/18 09:34 Dose: Not Given Aspirin (Aspirin Chewable) 81 mg PO DAILY [facility] Last Admin: 06/01/18 10:17 Dose: Not Given Atorvastatin Calcium (Lipitor) 40 mg PO QOTHERDAY [facility] Last Admin: 06/02/18 09:33 Dose: Not Given Clonidine HCl (Catapres) 0.3 mg PO TID [facility] Last Admin: 06/02/18 09:33 Dose: Not Given Dextrose (Dextrose 50% Inj) 50 ml IVP ONCE PRN PRN Reason: Hypoglycemia Furosemide (Lasix) 40 mg IV BID [facility] Last Admin: 06/02/18 11:54 Dose: Not Given Glipizide (Glucotrol) 10 mg PO DAILY [facility] Last Admin: 05/27/18 10:00 Dose: Not Given Heparin Sodium (Porcine) (Heparin) 5,000 units SC Q8 [facility]; Protocol Last Admin: 06/03/18 05:08 Dose: 5,000 units Hydralazine HCl (Apresoline) 10 mg IV Q6H PRN PRN Reason: Systolic Blood Pressure Last Admin: 06/01/18 11:47 Dose: 10 mg Hydralazine HCl (Apresoline) 25 mg PO Q6H [facility] Last Admin: 06/02/18 05:37 Dose: Not Given Heparin Sodium/Sodium Chloride (Heparin 77969 Units/250ml 1/2 Normal Saline) 25,000 units in 250 mls @ 16.248 mls/hr IV .[id number] PRN; Protocol PRN Reason: ADJUST RATE PER PROTOCOL Last Titration: 05/31/18 10:20 Dose: 0 units/kg/hr, 0 mls/hr Sodium Chloride (Sodium Chloride 0.45%) 1,000 mls @ 50 mls/hr IV .Q20H [facility] Last Admin: 06/01/18 11:36 Dose: 50 mls/hr Metronidazole (Flagyl) 500 mg in 100 mls @ 100 mls/hr IVPB Q8 [facility]; Protocol Last Admin: 06/03/18 05:08 Dose: 100 mls/hr Linezolid (Zyvox 600mg/300ml D5w) 600 mg in 300 mls @ 200 mls/hr IVPB Q12 [facility]; Protocol Stop: 06/08/18 13:31 Last Admin: 06/02/18 21:07 Dose: 200 mls/hr Aztreonam (Azactam 1 Gm) 100 mls @ 100 mls/hr IVPB Q12 [facility]; Protocol Stop: 06/09/18 22:01 Last Admin: 06/02/18 21:08 Dose: 100 mls/hr Sodium Chloride (Sodium Chloride 0.45%) 1,000 mls @ 75 mls/hr IV .[id number] [facility] Last Admin: 06/03/18 02:00 Dose: 75 mls/hr Propofol (Diprivan) 1,000 mg in 100 mls @ 2.926 mls/hr IV .Q24H PRN; Protocol PRN Reason: TITRATE PER MD ORDER Last Admin: 06/03/18 03:00 Dose: 15 mcg/kg/min, 8.777 mls/hr Insulin Human Lispro (Humalog High) 0 units SC ACHS [facility]; Protocol Last Admin: 06/02/18 22:21 Dose: Not Given Insulin Lispro Protam/Lispro Human (Humalog Mix 75/25) 10 units SC ACBD [facility] Last Admin: 06/02/18 18:42 Dose: Not Given Isosorbide Mononitrate (Imdur Er) 30 mg PO 0600 [facility] Last Admin: 06/03/18 05:08 Dose: Not Given Labetalol HCl (Trandate) 200 mg PO BID [facility] Last Admin: 06/02/18 09:34 Dose: Not Given Levalbuterol HCl (Xopenex) 1.25 mg IH [id number] [facility] Last Admin: 06/03/18 01:42 Dose: 1.25 mg Meclizine HCl (Antivert) 25 mg PO TID PRN PRN Reason: dizzy Last Admin: 05/30/18 11:26 Dose: 25 mg Metoprolol Tartrate (Lopressor) 50 mg PO Q12H [facility] Last Admin: 05/30/18 01:30 Dose: 50 mg Metoprolol Tartrate (Lopressor) 5 mg IVP Q6H [facility] Last Admin: 06/03/18 04:02 Dose: 5 mg Nitroglycerin (Nitro-Bid 2% Oint) 1 ea TOP Q8H [facility] Last Admin: 06/03/18 02:50 Dose: 1 ea Ondansetron HCl (Zofran Inj) 4 mg IVP Q6H PRN PRN Reason: Nausea/Vomiting Oxychlorosene Sodium (Clorpactin Wcs-90) 2 gm TOP DAILY [facility] Last Admin: 06/02/18 18:41 Dose: Not Given Pantoprazole Sodium (Protonix Inj) 40 mg IVP DAILY [facility] Last Admin: 06/02/18 10:47 Dose: Not Given Silver Sulfadiazine (Silvadene 1% 25 Gm) 0 gm TP BID [facility] Last Admin: 06/02/18 11:55 Dose: Not Given Simethicone (Mylicon Chew Tab) 80 mg PO HS PRN PRN Reason: GI distress Last Admin: 05/31/18 09:48 Dose: 80 mg - Labs Labs: 06/03/18 06:00 06/03/18 06:00 PT 23.6 SECONDS (9.4-12.5) H 06/02/18 10:05 INR 2.09 06/02/18 10:05 APTT 34.5 Seconds (26.9-38.3) 06/02/18 10:05 - Constitutional Appears: No Acute Distress, Chronically Ill - Head Exam Head Exam: ATRAUMATIC, NORMAL INSPECTION, NORMOCEPHALIC - Eye Exam Eye Exam: Normal appearance. absent: Conjunctival injection, Scleral icterus - ENT Exam ENT Exam: Mucous Membranes Dry Additional comments: ET tube in place NGT in place - Respiratory Exam Respiratory Exam: NORMAL BREATHING PATTERN. absent: Accessory Muscle Use, Rales, Rhonchi, Wheezes - Cardiovascular Exam Cardiovascular Exam: +S1, +S2 - GI/Abdominal Exam GI & Abdominal Exam: Distended, Soft Additional comments: abdominal dressings noted Alejandro drain in place - Neurological Exam Neurological Exam: Alert, Awake - Skin Skin Exam: Dry, Normal Color, Warm Assessment and Plan - Assessment and Plan (Free Text) Assessment: -Obstruction likely secondary to strangulated ventral hernia -GILBERTO on CKD3b -Hypochromic Microcytic Anemia -CKD 3b -Hypertension Plan: Patient's vitals, blood work, and imaging noted in EMR. Patient intubated on vent (100, 5, 12, 500)- will likely be extubated later today. Creatinine stable at 3.4-3.5 over the past 3 days. She is making urine. Avoid nephrotoxic drugs. Will continue to monitor closely. Continue management as per MICU team. Discussed with Dr. Roland Maciel PGY3 <Kailash Watkins - Last Filed: 06/03/18 17:09> Objective - Vital Signs/Intake and Output Vital Signs (last 24 hours): Temp Pulse Resp BP Pulse Ox 97.0 F L 86 20 166/58 H 90 L 06/03/18 16:45 06/03/18 16:45 06/03/18 16:45 06/03/18 16:45 06/03/18 16:45 Intake and Output: 06/03/18 06/03/18 06:59 18:59 Intake Total 1700 56 Output Total 615 Balance 1085 56 - Medications Medications: Current Medications Acetaminophen (Tylenol 325mg Tab) 650 mg PO Q6H PRN PRN Reason: Fever >100.4 F Last Admin: 05/30/18 01:30 Dose: 650 mg Albuterol/Ipratropium (Duoneb 3 Mg/0.5 Mg (3 Ml) Ud) 3 ml IH Q2H PRN PRN Reason: Shortness of Breath Amlodipine Besylate (Norvasc) 10 mg PO DAILY [facility] Last Admin: 06/02/18 09:34 Dose: Not Given Aspirin (Aspirin Chewable) 81 mg PO DAILY [facility] Last Admin: 06/03/18 10:46 Dose: 81 mg Atorvastatin Calcium (Lipitor) 40 mg PO QOTHERDAY [facility] Last Admin: 06/02/18 09:33 Dose: Not Given Clonidine HCl (Catapres) 0.3 mg PO TID [facility] Last Admin: 06/03/18 10:50 Dose: Not Given Dextrose (Dextrose 50% Inj) 50 ml IVP ONCE PRN PRN Reason: Hypoglycemia Heparin Sodium (Porcine) (Heparin) 5,000 units SC Q8 [facility]; Protocol Last Admin: 06/03/18 14:40 Dose: 5,000 units Hydralazine HCl (Apresoline) 10 mg IV Q6H PRN PRN Reason: Systolic Blood Pressure Last Admin: 06/01/18 11:47 Dose: 10 mg Hydralazine HCl (Apresoline) 25 mg PO Q6H [facility] Last Admin: 06/02/18 05:37 Dose: Not Given Hydromorphone HCl (Dilaudid) 0.5 mg IVP Q4H PRN PRN Reason: Pain, moderate (4-7) Last Admin: 06/03/18 12:31 Dose: 0.5 mg Heparin Sodium/Sodium Chloride (Heparin 73917 Units/250ml 1/2 Normal Saline) 25,000 units in 250 mls @ 16.248 mls/hr IV .[id number] PRN; Protocol PRN Reason: ADJUST RATE PER PROTOCOL Last Titration: 05/31/18 10:20 Dose: 0 units/kg/hr, 0 mls/hr Metronidazole (Flagyl) 500 mg in 100 mls @ 100 mls/hr IVPB Q8 [facility]; Protocol Last Admin: 06/03/18 14:40 Dose: 100 mls/hr Linezolid (Zyvox 600mg/300ml D5w) 600 mg in 300 mls @ 200 mls/hr IVPB Q12 [facility]; Protocol Stop: 06/08/18 13:31 Last Admin: 06/03/18 10:46 Dose: 200 mls/hr Aztreonam (Azactam 1 Gm) 100 mls @ 100 mls/hr IVPB Q12 [facility]; Protocol Stop: 06/09/18 22:01 Last Admin: 06/03/18 10:46 Dose: 100 mls/hr Insulin Human Lispro (Humalog High) 0 units SC ACHS [facility]; Protocol Last Admin: 06/03/18 16:06 Dose: Not Given Insulin Lispro Protam/Lispro Human (Humalog Mix 75/25) 10 units SC ACBD [facility] Last Admin: 06/03/18 16:07 Dose: Not Given Isosorbide Mononitrate (Imdur Er) 30 mg PO 0600 [facility] Last Admin: 06/03/18 05:08 Dose: Not Given Labetalol HCl (Trandate) 200 mg PO BID [facility] Last Admin: 06/02/18 09:34 Dose: Not Given Levalbuterol HCl (Xopenex) 1.25 mg IH [id number] [facility] Last Admin: 06/03/18 13:24 Dose: 1.25 mg Meclizine HCl (Antivert) 25 mg PO TID PRN PRN Reason: dizzy Last Admin: 05/30/18 11:26 Dose: 25 mg Metoprolol Tartrate (Lopressor) 50 mg PO Q12H [facility] Last Admin: 05/30/18 01:30 Dose: 50 mg Metoprolol Tartrate (Lopressor) 5 mg IVP Q6H [facility] Last Admin: 06/03/18 10:45 Dose: 5 mg Nitroglycerin (Nitro-Bid 2% Oint) 1 ea TOP Q8H [facility] Last Admin: 06/03/18 10:48 Dose: 1 ea Ondansetron HCl (Zofran Inj) 4 mg IVP Q6H PRN PRN Reason: Nausea/Vomiting Oxychlorosene Sodium (Clorpactin Wcs-90) 2 gm TOP DAILY [facility] Last Admin: 06/03/18 10:45 Dose: 2 gm Pantoprazole Sodium (Protonix Inj) 40 mg IVP DAILY [facility] Last Admin: 06/03/18 10:45 Dose: 40 mg Silver Sulfadiazine (Silvadene 1% 25 Gm) 0 gm TP BID [facility] Last Admin: 06/03/18 10:49 Dose: 25 gm Simethicone (Mylicon Chew Tab) 80 mg PO PCHS PRN PRN Reason: GI distress Last Admin: 05/31/18 09:48 Dose: 80 mg - Labs Labs: 06/03/18 06:00 06/03/18 06:00 PT 23.6 SECONDS (9.4-12.5) H 06/02/18 10:05 INR 2.09 06/02/18 10:05 APTT 34.5 Seconds (26.9-38.3) 06/02/18 10:05 Assessment and Plan - Assessment and Plan (Free Text) Plan: Pt seen and examined by me. I have reviewed the note of the resident medical officer and I agree with it. I have discussed the assessment and plan with the resident. I have reviewed the medications and the last labs. Pt with GILBERTO with the Cr that is stable. She has HTN that is not well controlled. Limited oral meds can be used at this time due to her GILBERTO. She has contrast nephropathy after contrast given to evaluate her PAD. She was taken to the OR yesterday and I did speak with Dr Morrell about the case.
[2018-06-03] MEDS: Insulin Lispro (HUMAlog) HIGH Coverage SC SCH ×4 (08:00→21:45)
[2018-06-03] MEDS: Insulin Lispro (humaLOG) MIX 75/25(10 ml) SC SCH ×2 (08:03→16:07)
[2018-06-03 09:12] LABS: ARTERIAL BLOOD GAS HCO3 17.7 mmol/L (21-28); ARTERIAL BLOOD GAS HEMOGLOBIN 6.4 g/dL (11.7-17.4); ARTERIAL BLOOD GAS O2 CAPACITY 9.6 mL/dl (16-24); ARTERIAL BLOOD GAS O2 CONTENT 9.6 ML/dl (15-23); ARTERIAL BLOOD GAS O2 SAT 100.2 % (95-98); ARTERIAL BLOOD GAS PCO2 32 mm/Hg (35-45); ARTERIAL BLOOD GAS PH 7.35 (7.35-7.45); ARTERIAL BLOOD GAS TCO2 18.7 mmol.L (22-28)
[2018-06-03] MEDS: Oxychlorosene Topical 2 gm Packet TOP SCH (10:45)
[2018-06-03] MEDS: Linezolid 600 mg in D5W 300 ml 600 MG/300 ML BAG IVPB SCH ×2 (10:46→21:23)
[2018-06-03] MEDS: Aztreonam 1 Gm in NS 100mL 100 ML IVPB SCH ×2 (10:46→21:35)
[2018-06-03] MEDS: Silver Sulfadiazine 1% Cream (25 gm) TP SCH (10:49)
--- NOTE | 2018-06-03 10:57 | RAD ---
Date of service: 06/03/2018 HISTORY: eval for extubation COMPARISON: 06/02/2018 FINDINGS: LUNGS: Bilateral infiltrates unchanged. Endotracheal and nasogastric tubes unchanged. PLEURA: No significant pleural effusion identified, no pneumothorax apparent. CARDIOVASCULAR: Aortic calcification Mild cardiomegaly no pulmonary vascular congestion. OSSEOUS STRUCTURES: No significant abnormalities. VISUALIZED UPPER ABDOMEN: Normal. OTHER FINDINGS: None. IMPRESSION: Bilateral infiltrates unchanged. Endotracheal and nasogastric tubes unchanged.
--- NOTE | 2018-06-03 11:00 | RAD ---
Date of service: 06/02/2018 HISTORY: post surgery COMPARISON: 06/01/2018 FINDINGS: LUNGS: No change in bilateral infiltrates. Endotracheal tube in satisfactory position. Nasogastric tube unchanged PLEURA: No significant pleural effusion identified, no pneumothorax apparent. CARDIOVASCULAR: Aortic calcification Mild cardiomegaly no pulmonary vascular congestion. OSSEOUS STRUCTURES: No significant abnormalities. VISUALIZED UPPER ABDOMEN: Normal. OTHER FINDINGS: None. IMPRESSION: No change in bilateral infiltrates. Endotracheal tube in satisfactory position. Nasogastric tube unchanged
--- NOTE | 2018-06-03 11:04 | CP.CCUPN ---
<Ariane Hernandez - Last Filed: 06/03/18 11:04> CCU Subjective - Physician Review Subjective (Free Text): Ariane Hernandez PGY1 Critical Care Progress Note Patient seen and examined at bedside this morning. No acute events overnight. POD #1 laparatomy with appendectomy, small bowel resection and jejunocecal anastomosis from necrotic bowel. Patient extubated this morning and placed on high flow oxygen. Patient is AOx3, protecting her airway and denies CP, SOB, abdominal pain, nausea, vomiting and urinary complains. CCU Objective - Vital Signs / Intake & Output Vital Signs (Last 4 hours): Vital Signs Pulse BP 06/03/18 10:45 92 H 156/67 H Intake and Output (Last 8hrs): Intake & Output 06/02/18 06/03/18 06/03/18 22:59 06:59 14:59 Intake Total 4 1696 56 Output Total 300 615 Balance -296 1081 56 Intake: IV 4 1696 56 Right Forearm 1600 Output: Gastric Amount 25 Stomach 25 Drainage 140 Left 70 Right 70 Urine 300 450 Urethral (Kelley) 450 - Physical Exam Head: Positive for: Atraumatic, Normocephalic Pupils: Positive for: PERRL Extroacular Muscles: Positive for: EOMI Conjunctiva: Positive for: Normal Mouth: Positive for: Moist Mucous Membranes Neck: Positive for: Normal Range of Motion Respiratory/Chest: Positive for: Clear to Auscultation, Good Air Exchange. Negative for: Respiratory Distress, Accessory Muscle Use Cardiovascular: Positive for: Normal S1, S2, Irregular Rhythm. Negative for: Murmurs Abdomen: Positive for: Normal Bowel Sounds, Other (dressing is non draining/bleeding). Negative for: Tenderness, Distention, Peritoneal Signs Back: Positive for: Normal Inspection Upper Extremity: Positive for: Normal Inspection. Negative for: Cyanosis, Edema Lower Extremity: Positive for: Normal Inspection, Normal ROM, Tenderness, Other (Grangrenous left 2nd toe noted). Negative for: Edema, CALF TENDERNESS, Marek's Sign Neurological: Positive for: GCS=15, CN II-XII Intact, Speech Normal Skin: Positive for: Warm, Dry, Normal Color. Negative for: Rashes Psychiatric: Positive for: Alert, Oriented x 3 - Medications Active Medications: Active Medications Generic Name Dose Route Start Last Admin Trade Name Freq PRN Reason Stop Dose Admin Acetaminophen 650 mg 05/21/18 20:42 05/30/18 01:30 Tylenol 325mg Tab PO 650 mg Q6H PRN Administration Fever >100.4 F Acetaminophen 650 mg 05/30/18 03:19 05/30/18 22:44 Tylenol 325mg Tab PO 650 mg Q4H PRN Administration Pain, moderate (4-7) Albuterol/Ipratropium 3 ml 06/02/18 18:21 Duoneb 3 Mg/0.5 Mg (3 Ml) Ud IH Q2H PRN Shortness of Breath Amlodipine Besylate 10 mg 05/22/18 10:00 06/02/18 09:34 Norvasc PO Not Given DAILY [facility] Aspirin 81 mg 05/28/18 10:00 06/03/18 10:46 Aspirin Chewable PO 81 mg DAILY [facility] Administration Atorvastatin Calcium 40 mg 05/23/18 10:00 06/02/18 09:33 Lipitor PO Not Given QOTHERDAY [facility] Clonidine HCl 0.3 mg 05/22/18 10:00 06/03/18 10:50 Catapres PO Not Given TID [facility] Dextrose 50 ml 05/23/18 16:44 Dextrose 50% Inj IVP ONCE PRN Hypoglycemia Furosemide 40 mg 06/03/18 10:58 Lasix IVP 06/03/18 10:59 ONCE ONE Heparin Sodium (Porcine) 5,000 units 06/02/18 22:00 06/03/18 05:08 Heparin SC 5,000 units Q8 [facility] Administration Protocol Hydralazine HCl 10 mg 05/31/18 06:15 06/01/18 11:47 Apresoline IV 10 mg Q6H PRN Administration Systolic Blood Pressure Hydralazine HCl 25 mg 05/31/18 06:15 06/02/18 05:37 Apresoline PO Not Given Q6H [facility] Heparin Sodium/Sodium Chloride 25,000 units in 250 mls @ 16.248 mls/hr 05/30/18 03:19 05/31/18 10:20 Heparin 79358 Units/250ml 1/2 Normal Saline IV 0 units/kg/hr .[id number] PRN 0 mls/hr ADJUST RATE PER PROTOCOL Titration Protocol 18 UNITS/KG/HR Metronidazole 500 mg in 100 mls @ 100 mls/hr 06/01/18 14:00 06/03/18 05:08 Flagyl IVPB 100 mls/hr Q8 [facility] Administration Protocol Linezolid 600 mg in 300 mls @ 200 mls/hr 06/01/18 13:30 06/03/18 10:46 Zyvox 600mg/300ml D5w IVPB 06/08/18 13:31 200 mls/hr Q12 [facility] Administration Protocol Aztreonam 100 mls @ 100 mls/hr 06/02/18 22:00 06/03/18 10:46 Azactam 1 Gm IVPB 06/09/18 22:01 100 mls/hr Q12 [facility] Administration Protocol Insulin Human Lispro 0 units 05/21/18 22:00 06/03/18 08:00 Humalog High SC Not Given ACHS [facility] Protocol Insulin Lispro Protam/Lispro Human 10 units 05/25/18 16:30 06/03/18 08:03 Humalog Mix 75/25 SC Not Given ACBD [facility] Isosorbide Mononitrate 30 mg 05/22/18 06:00 06/03/18 05:08 Imdur Er PO Not Given 0600 [facility] Labetalol HCl 200 mg 05/30/18 06:54 06/02/18 09:34 Trandate PO Not Given BID [facility] Levalbuterol HCl 1.25 mg 05/26/18 14:00 06/03/18 07:56 Xopenex IH 1.25 mg [id number] [facility] Administration Meclizine HCl 25 mg 05/21/18 20:02 05/30/18 11:26 Antivert PO 25 mg TID PRN Administration dizzy Metoprolol Tartrate 50 mg 05/28/18 13:30 05/30/18 01:30 Lopressor PO 50 mg Q12H [facility] Administration Metoprolol Tartrate 5 mg 06/02/18 10:45 06/03/18 10:45 Lopressor IVP 5 mg Q6H [facility] Administration Nitroglycerin 1 ea 05/27/18 10:45 06/03/18 10:48 Nitro-Bid 2% Oint TOP 1 ea Q8H [facility] Administration Ondansetron HCl 4 mg 06/01/18 10:58 Zofran Inj IVP Q6H PRN Nausea/Vomiting Oxychlorosene Sodium 2 gm 06/02/18 10:00 02/06/19 10:45 Clorpactin Wcs-90 TOP 2 gm DAILY [facility] Administration Pantoprazole Sodium 40 mg 06/01/18 13:30 06/03/18 10:45 Protonix Inj IVP 40 mg DAILY [facility] Administration Silver Sulfadiazine 0 gm 05/22/18 18:00 06/03/18 10:49 Silvadene 1% 25 Gm TP 25 gm BID [facility] Administration Simethicone 80 mg 05/30/18 04:02 05/31/18 09:48 Mylicon Chew Tab PO 80 mg PCHS PRN Administration GI distress - Patient Studies Lab Studies: Microbiology Studies 06/01/18 14:00 Gram Stain - Final Foot - Right Wound Culture - Preliminary NO GROWTH AFTER 24 HOURS Lab Studies 06/03/18 06/03/18 06/03/18 Range/Units 09:02 07:51 06:00 WBC 20.9 H (4.5-11.0) 10^3/uL RBC 2.77 L (3.5-6.1) 10^6/uL Hgb 7.3 L (12.0-16.0) g/dL Hct 22.6 L (36.0-48.0) % MCV 81.6 (80.0-105.0) fl MCH 26.4 (25.0-35.0) pg MCHC 32.3 (31.0-37.0) g/dl RDW 17.2 H (11.5-14.5) % Plt Count 238 (120.0-450.0) 10^3/uL MPV 8.8 (7.0-11.0) fl Neut % (Auto) 90.2 H (50.0-68.0) % Lymph % (Auto) 5.1 L (22.0-35.0) % [place] % (Auto) 4.3 (1.0-6.0) % Eos % (Auto) 0.3 L (1.5-5.0) % Baso % (Auto) 0.1 (0.0-3.0) % Lymph # (Auto) 1.1 L (1.2-3.4) [place] # (Auto) 0.9 H (0.1-0.6) Eos # (Auto) 0.1 (0.0-0.7) Baso # (Auto) 0.02 (0.0-2.0) K/mm3 Absolute Neuts (auto) 18.89 H (1.4-6.5) pCO2 32 L (35-45) mm/Hg pO2 330.0 H (80-100) mm/Hg HCO3 17.7 L (21-28) mmol/L ABG pH 7.35 (7.35-7.45) ABG Total CO2 18.7 L (22-28) mmol.L ABG O2 Saturation 100.2 H (95-98) % ABG O2 Content 9.6 L (15-23) ML/dl ABG Base Excess -7.2 L (-2.0-3.0) mmol/L ABG Hemoglobin 6.4 L (11.7-17.4) g/dL ABG Carboxyhemoglobin 2.2 H (0.5-1.5) % POC ABG HHb (Measured) -0.2 L (0-5) % ABG Methemoglobin 1.4 (0.0-3.0) % ABG O2 Capacity 9.6 L (16-24) mL/dl Hgb O2 Saturation 96.6 (95.0-98.0) % FiO2 100.0 % Sodium (132-148) mmol/L Potassium (3.6-5.0) mmol/L Chloride (98-107) mmol/L Carbon Dioxide (21-33) mmol/L Anion Gap (10-20) BUN (7-21) mg/dL Creatinine (0.7-1.2) mg/dl Est GFR ( Amer) Est GFR (Non-Af Amer) POC Glucose (mg/dL) 191 H (65-110) mg/dL Random Glucose (70-110) mg/dL Calcium (8.4-10.5) mg/dL Blood Type Antibody Screen Crossmatch BBK History Checked 06/03/18 06/02/18 06/02/18 Range/Units 06:00 21:23 18:46 WBC (4.5-11.0) 10^3/uL RBC (3.5-6.1) 10^6/uL Hgb (12.0-16.0) g/dL Hct (36.0-48.0) % MCV (80.0-105.0) fl MCH (25.0-35.0) pg MCHC (31.0-37.0) g/dl RDW (11.5-14.5) % Plt Count (120.0-450.0) 10^3/uL MPV (7.0-11.0) fl Neut % (Auto) (50.0-68.0) % Lymph % (Auto) (22.0-35.0) % [place] % (Auto) (1.0-6.0) % Eos % (Auto) (1.5-5.0) % Baso % (Auto) (0.0-3.0) % Lymph # (Auto) (1.2-3.4) [place] # (Auto) (0.1-0.6) Eos # (Auto) (0.0-0.7) Baso # (Auto) (0.0-2.0) K/mm3 Absolute Neuts (auto) (1.4-6.5) pCO2 (35-45) mm/Hg pO2 (80-100) mm/Hg HCO3 (21-28) mmol/L ABG pH (7.35-7.45) ABG Total CO2 (22-28) mmol.L ABG O2 Saturation (95-98) % ABG O2 Content (15-23) ML/dl ABG Base Excess (-2.0-3.0) mmol/L ABG Hemoglobin (11.7-17.4) g/dL ABG Carboxyhemoglobin (0.5-1.5) % POC ABG HHb (Measured) (0-5) % ABG Methemoglobin (0.0-3.0) % ABG O2 Capacity (16-24) mL/dl Hgb O2 Saturation (95.0-98.0) % FiO2 % Sodium 138 (132-148) mmol/L Potassium 4.5 (3.6-5.0) mmol/L Chloride 111 H (98-107) mmol/L Carbon Dioxide 19 L (21-33) mmol/L Anion Gap 13 (10-20) BUN 78 H (7-21) mg/dL Creatinine 3.5 H (0.7-1.2) mg/dl Est GFR ( Amer) 16 Est GFR (Non-Af Amer) 13 POC Glucose (mg/dL) 214 H 241 H (65-110) mg/dL Random Glucose 194 H (70-110) mg/dL Calcium 7.2 L (8.4-10.5) mg/dL Blood Type Antibody Screen Crossmatch BBK History Checked 06/02/18 06/01/18 Range/Units 11:23 16:30 WBC (4.5-11.0) 10^3/uL RBC (3.5-6.1) 10^6/uL Hgb (12.0-16.0) g/dL Hct (36.0-48.0) % MCV (80.0-105.0) fl MCH (25.0-35.0) pg MCHC (31.0-37.0) g/dl RDW (11.5-14.5) % Plt Count (120.0-450.0) 10^3/uL MPV (7.0-11.0) fl Neut % (Auto) (50.0-68.0) % Lymph % (Auto) (22.0-35.0) % [place] % (Auto) (1.0-6.0) % Eos % (Auto) (1.5-5.0) % Baso % (Auto) (0.0-3.0) % Lymph # (Auto) (1.2-3.4) [place] # (Auto) (0.1-0.6) Eos # (Auto) (0.0-0.7) Baso # (Auto) (0.0-2.0) K/mm3 Absolute Neuts (auto) (1.4-6.5) pCO2 (35-45) mm/Hg pO2 (80-100) mm/Hg HCO3 (21-28) mmol/L ABG pH (7.35-7.45) ABG Total CO2 (22-28) mmol.L ABG O2 Saturation (95-98) % ABG O2 Content (15-23) ML/dl ABG Base Excess (-2.0-3.0) mmol/L ABG Hemoglobin (11.7-17.4) g/dL ABG Carboxyhemoglobin (0.5-1.5) % POC ABG HHb (Measured) (0-5) % ABG Methemoglobin (0.0-3.0) % ABG O2 Capacity (16-24) mL/dl Hgb O2 Saturation (95.0-98.0) % FiO2 % Sodium (132-148) mmol/L Potassium (3.6-5.0) mmol/L Chloride (98-107) mmol/L Carbon Dioxide (21-33) mmol/L Anion Gap (10-20) BUN (7-21) mg/dL Creatinine (0.7-1.2) mg/dl Est GFR ( Amer) Est GFR (Non-Af Amer) POC Glucose (mg/dL) 216 H (65-110) mg/dL Random Glucose (70-110) mg/dL Calcium (8.4-10.5) mg/dL Blood Type B POSITIVE Antibody Screen Negative Crossmatch See Detail BBK History Checked Patient has bt Laboratory Results - last 24 hr 06/01/18 06/02/18 06/02/18 16:30 11:23 18:46 WBC RBC Hgb Hct MCV MCH MCHC RDW Plt Count MPV Neut % (Auto) Lymph % (Auto) [place] % (Auto) Eos % (Auto) Baso % (Auto) Lymph # (Auto) [place] # (Auto) Eos # (Auto) Baso # (Auto) Absolute Neuts (auto) pCO2 pO2 HCO3 ABG pH ABG Total CO2 ABG O2 Saturation ABG O2 Content ABG Base Excess ABG Hemoglobin ABG Carboxyhemoglobin POC ABG HHb (Measured) ABG Methemoglobin ABG O2 Capacity Hgb O2 Saturation FiO2 Sodium Potassium Chloride Carbon Dioxide Anion Gap BUN Creatinine Est GFR ( Amer) Est GFR (Non-Af Amer) POC Glucose (mg/dL) 216 H 241 H Random Glucose Calcium Blood Type B POSITIVE Antibody Screen Negative Crossmatch See Detail BBK History Checked Patient has bt 06/02/18 06/03/18 06/03/18 21:23 06:00 06:00 WBC 20.9 H RBC 2.77 L Hgb 7.3 L Hct 22.6 L MCV 81.6 MCH 26.4 MCHC 32.3 RDW 17.2 H Plt Count 238 MPV 8.8 Neut % (Auto) 90.2 H Lymph % (Auto) 5.1 L [place] % (Auto) 4.3 Eos % (Auto) 0.3 L Baso % (Auto) 0.1 Lymph # (Auto) 1.1 L [place] # (Auto) 0.9 H Eos # (Auto) 0.1 Baso # (Auto) 0.02 Absolute Neuts (auto) 18.89 H pCO2 pO2 HCO3 ABG pH ABG Total CO2 ABG O2 Saturation ABG O2 Content ABG Base Excess ABG Hemoglobin ABG Carboxyhemoglobin POC ABG HHb (Measured) ABG Methemoglobin ABG O2 Capacity Hgb O2 Saturation FiO2 Sodium 138 Potassium 4.5 Chloride 111 H Carbon Dioxide 19 L Anion Gap 13 BUN 78 H Creatinine 3.5 H Est GFR ( Amer) 16 Est GFR (Non-Af Amer) 13 POC Glucose (mg/dL) 214 H Random Glucose 194 H Calcium 7.2 L Blood Type Antibody Screen Crossmatch BBK History Checked 06/03/18 06/03/18 07:51 09:02 WBC RBC Hgb Hct MCV MCH MCHC RDW Plt Count MPV Neut % (Auto) Lymph % (Auto) [place] % (Auto) Eos % (Auto) Baso % (Auto) Lymph # (Auto) [place] # (Auto) Eos # (Auto) Baso # (Auto) Absolute Neuts (auto) pCO2 32 L pO2 330.0 H HCO3 17.7 L ABG pH 7.35 ABG Total CO2 18.7 L ABG O2 Saturation 100.2 H ABG O2 Content 9.6 L ABG Base Excess -7.2 L ABG Hemoglobin 6.4 L ABG Carboxyhemoglobin 2.2 H POC ABG HHb (Measured) -0.2 L ABG Methemoglobin 1.4 ABG O2 Capacity 9.6 L Hgb O2 Saturation 96.6 FiO2 100.0 Sodium Potassium Chloride Carbon Dioxide Anion Gap BUN Creatinine Est GFR ( Amer) Est GFR (Non-Af Amer) POC Glucose (mg/dL) 191 H Random Glucose Calcium Blood Type Antibody Screen Crossmatch BBK History Checked Radiology Impressions: Radiology Impressions Chest X-Ray 06/02/18 17:39 IMPRESSION: No change in bilateral infiltrates. Endotracheal tube in satisfactory position. Nasogastric tube unchanged Chest X-Ray 06/03/18 09:46 IMPRESSION: Bilateral infiltrates unchanged. Endotracheal and nasogastric tubes unchanged. Fingerstick Blood Sugar Results: 190 Critical Care Progress Note - Nutrition Nutrition: Nutrition Category Date Time Status NPO Diet [DIET] Diets 06/01/18 Lunch Ordered Assessment/Plan - Assessment and Plan (Free Text) Assessment: 67 year old with past medical history of type II diabetes mellitus, HTN, HLD, CAD, atrial fibrillation on coumadin, abdominal hernia, CVA who presents intubated for hypoxic respiratory failure 2/2 cardiogenic vs non cardiogenic pulmonary edema. POD #1 for incarcerated ventral hernia surgery with small bowel resection and jejunocecal anastamosis for necrotic bowel. Plan: Acute hypoxic respiratory failure 2/2 cardiogenic vs. noncardiogenic pulmonary edema -CXR today shows unchanged B/L infiltrates -extubated today, patient placed on high flow oxygen, AO x3 -ABG today shows pH/CO2/O2 7.35/32/330 and bicarb of 19 while on FiO2 f 10%, intubated. Now extubated -lasix and fluids stopped today, will assess volume status. Patient making urine, 400cc overnight -Maintain O2 saturation>90%. Small bowel obstruction 2/2 to incarcerated ventral hernia -POD #1 status post colectomy with jejunocecal anastamosis for necrotic bowel -Abdominal CT: showed incarcerated bowel in left lower quadrant of abdomen. -Continue with flagyl and azactam Diet -NPO, will advance as per surgery recommendations -GI ppx with Protonix 40 mg daily GILBERTO -BUN/Cr is 78/3.5, stable from yesterday -will stop lasix and fluids and assess patient volume status -Good urine output overnight, 400cc overnight -Replete electrolytes as needed. -Maintain euvolemia Anemia -Hg is 7.3 today from 8.6 yesterday -will monitor H/H -receiving 2 units PRBC Osteomyelitis of left 2nd Toe -Continue with antibiotics as per ID, zyvox -Continue with oxychlorosene as per podiatry -possible OR by podiatry later this week Atrial fibrillation -currently rate controlled -Echocardiogram: 74%, biatrial enlargement -Troponin: <0.01, 0.02 on 05/28. -Maintain MAP>65. -currently normotensive, will resume oral HTN medications when patient tolerates PO PPX with protonix and SCD Patient seen and examined with Dr. Carlos <Anselmo Carlos - Last Filed: 06/03/18 12:03> CCU Objective - Vital Signs / Intake & Output Vital Signs (Last 4 hours): Vital Signs Pulse BP 06/03/18 11:25 168/87 H 06/03/18 10:45 92 H 156/67 H Intake and Output (Last 8hrs): Intake & Output 06/02/18 06/03/18 06/03/18 22:59 06:59 14:59 Intake Total 4 1696 56 Output Total 300 615 Balance -296 1081 56 Intake: IV 4 1696 56 Right Forearm 1600 Output: Gastric Amount 25 Stomach 25 Drainage 140 Left 70 Right 70 Urine 300 450 Urethral (Kelley) 450 - Medications Active Medications: Active Medications Generic Name Dose Route Start Last Admin Trade Name Freq PRN Reason Stop Dose Admin Acetaminophen 650 mg 05/21/18 20:42 05/30/18 01:30 Tylenol 325mg Tab PO 650 mg Q6H PRN Administration Fever >100.4 F Albuterol/Ipratropium 3 ml 06/02/18 18:21 Duoneb 3 Mg/0.5 Mg (3 Ml) Ud IH Q2H PRN Shortness of Breath Amlodipine Besylate 10 mg 05/22/18 10:00 06/02/18 09:34 Norvasc PO Not Given DAILY [facility] Aspirin 81 mg 05/28/18 10:00 06/03/18 10:46 Aspirin Chewable PO 81 mg DAILY [facility] Administration Atorvastatin Calcium 40 mg 05/23/18 10:00 06/02/18 09:33 Lipitor PO Not Given QOTHERDAY [facility] Clonidine HCl 0.3 mg 05/22/18 10:00 06/03/18 10:50 Catapres PO Not Given TID [facility] Dextrose 50 ml 05/23/18 16:44 Dextrose 50% Inj IVP ONCE PRN Hypoglycemia Heparin Sodium (Porcine) 5,000 units 06/02/18 22:00 06/03/18 05:08 Heparin SC 5,000 units Q8 [facility] Administration Protocol Hydralazine HCl 10 mg 05/31/18 06:15 06/01/18 11:47 Apresoline IV 10 mg Q6H PRN Administration Systolic Blood Pressure Hydralazine HCl 25 mg 05/31/18 06:15 06/02/18 05:37 Apresoline PO Not Given Q6H [facility] Hydromorphone HCl 0.5 mg 06/03/18 11:47 Dilaudid IVP Q4H PRN Pain, moderate (4-7) Heparin Sodium/Sodium Chloride 25,000 units in 250 mls @ 16.248 mls/hr 05/30/18 03:19 05/31/18 10:20 Heparin 52717 Units/250ml 1/2 Normal Saline IV 0 units/kg/hr .[id number] PRN 0 mls/hr ADJUST RATE PER PROTOCOL Titration Protocol 18 UNITS/KG/HR Metronidazole 500 mg in 100 mls @ 100 mls/hr 06/01/18 14:00 06/03/18 05:08 Flagyl IVPB 100 mls/hr Q8 [facility] Administration Protocol Linezolid 600 mg in 300 mls @ 200 mls/hr 06/01/18 13:30 06/03/18 10:46 Zyvox 600mg/300ml D5w IVPB 06/08/18 13:31 200 mls/hr Q12 [facility] Administration Protocol Aztreonam 100 mls @ 100 mls/hr 06/02/18 22:00 06/03/18 10:46 Azactam 1 Gm IVPB 06/09/18 22:01 100 mls/hr Q12 [facility] Administration Protocol Insulin Human Lispro 0 units 05/21/18 22:00 06/03/18 08:00 Humalog High SC Not Given ACHS [facility] Protocol Insulin Lispro Protam/Lispro Human 10 units 05/25/18 16:30 06/03/18 08:03 Humalog Mix 75/25 SC Not Given ACBD [facility] Isosorbide Mononitrate 30 mg 05/22/18 06:00 06/03/18 05:08 Imdur Er PO Not Given 0600 [facility] Labetalol HCl 200 mg 05/30/18 06:54 06/02/18 09:34 Trandate PO Not Given BID [facility] Levalbuterol HCl 1.25 mg 05/26/18 14:00 06/03/18 07:56 Xopenex IH 1.25 mg [id number] [facility] Administration Meclizine HCl 25 mg 05/21/18 20:02 05/30/18 11:26 Antivert PO 25 mg TID PRN Administration dizzy Metoprolol Tartrate 50 mg 05/28/18 13:30 05/30/18 01:30 Lopressor PO 50 mg Q12H [facility] Administration Metoprolol Tartrate 5 mg 06/02/18 10:45 06/03/18 10:45 Lopressor IVP 5 mg Q6H [facility] Administration Nitroglycerin 1 ea 05/27/18 10:45 06/03/18 10:48 Nitro-Bid 2% Oint TOP 1 ea Q8H [facility] Administration Ondansetron HCl 4 mg 06/01/18 10:58 Zofran Inj IVP Q6H PRN Nausea/Vomiting Oxychlorosene Sodium 2 gm 06/02/18 10:00 06/03/18 10:45 Clorpactin Wcs-90 TOP 2 gm DAILY [facility] Administration Pantoprazole Sodium 40 mg 06/01/18 13:30 06/03/18 10:45 Protonix Inj IVP 40 mg DAILY [facility] Administration Silver Sulfadiazine 0 gm 05/22/18 18:00 06/03/18 10:49 Silvadene 1% 25 Gm TP 25 gm BID [facility] Administration Simethicone 80 mg 05/30/18 04:02 05/31/18 09:48 Mylicon Chew Tab PO 80 mg PCHS PRN Administration GI distress - Patient Studies Lab Studies: Microbiology Studies 06/01/18 14:00 Gram Stain - Final Foot - Right Wound Culture - Preliminary NO GROWTH AFTER 24 HOURS Lab Studies 06/03/18 06/03/18 06/03/18 Range/Units 09:02 07:51 06:00 WBC 20.9 H (4.5-11.0) 10^3/uL RBC 2.77 L (3.5-6.1) 10^6/uL Hgb 7.3 L (12.0-16.0) g/dL Hct 22.6 L (36.0-48.0) % MCV 81.6 (80.0-105.0) fl MCH 26.4 (25.0-35.0) pg MCHC 32.3 (31.0-37.0) g/dl RDW 17.2 H (11.5-14.5) % Plt Count 238 (120.0-450.0) 10^3/uL MPV 8.8 (7.0-11.0) fl Neut % (Auto) 90.2 H (50.0-68.0) % Lymph % (Auto) 5.1 L (22.0-35.0) % [place] % (Auto) 4.3 (1.0-6.0) % Eos % (Auto) 0.3 L (1.5-5.0) % Baso % (Auto) 0.1 (0.0-3.0) % Lymph # (Auto) 1.1 L (1.2-3.4) [place] # (Auto) 0.9 H (0.1-0.6) Eos # (Auto) 0.1 (0.0-0.7) Baso # (Auto) 0.02 (0.0-2.0) K/mm3 Absolute Neuts (auto) 18.89 H (1.4-6.5) pCO2 32 L (35-45) mm/Hg pO2 330.0 H (80-100) mm/Hg HCO3 17.7 L (21-28) mmol/L ABG pH 7.35 (7.35-7.45) ABG Total CO2 18.7 L (22-28) mmol.L ABG O2 Saturation 100.2 H (95-98) % ABG O2 Content 9.6 L (15-23) ML/dl ABG Base Excess -7.2 L (-2.0-3.0) mmol/L ABG Hemoglobin 6.4 L (11.7-17.4) g/dL ABG Carboxyhemoglobin 2.2 H (0.5-1.5) % POC ABG HHb (Measured) -0.2 L (0-5) % ABG Methemoglobin 1.4 (0.0-3.0) % ABG O2 Capacity 9.6 L (16-24) mL/dl Hgb O2 Saturation 96.6 (95.0-98.0) % FiO2 100.0 % Sodium (132-148) mmol/L Potassium (3.6-5.0) mmol/L Chloride (98-107) mmol/L Carbon Dioxide (21-33) mmol/L Anion Gap (10-20) BUN (7-21) mg/dL Creatinine (0.7-1.2) mg/dl Est GFR ( Amer) Est GFR (Non-Af Amer) POC Glucose (mg/dL) 191 H (65-110) mg/dL Random Glucose (70-110) mg/dL Calcium (8.4-10.5) mg/dL Blood Type Antibody Screen Crossmatch BBK History Checked 06/03/18 06/02/18 06/02/18 Range/Units 06:00 21:23 18:46 WBC (4.5-11.0) 10^3/uL RBC (3.5-6.1) 10^6/uL Hgb (12.0-16.0) g/dL Hct (36.0-48.0) % MCV (80.0-105.0) fl MCH (25.0-35.0) pg MCHC (31.0-37.0) g/dl RDW (11.5-14.5) % Plt Count (120.0-450.0) 10^3/uL MPV (7.0-11.0) fl Neut % (Auto) (50.0-68.0) % Lymph % (Auto) (22.0-35.0) % [place] % (Auto) (1.0-6.0) % Eos % (Auto) (1.5-5.0) % Baso % (Auto) (0.0-3.0) % Lymph # (Auto) (1.2-3.4) [place] # (Auto) (0.1-0.6) Eos # (Auto) (0.0-0.7) Baso # (Auto) (0.0-2.0) K/mm3 Absolute Neuts (auto) (1.4-6.5) pCO2 (35-45) mm/Hg pO2 (80-100) mm/Hg HCO3 (21-28) mmol/L ABG pH (7.35-7.45) ABG Total CO2 (22-28) mmol.L ABG O2 Saturation (95-98) % ABG O2 Content (15-23) ML/dl ABG Base Excess (-2.0-3.0) mmol/L ABG Hemoglobin (11.7-17.4) g/dL ABG Carboxyhemoglobin (0.5-1.5) % POC ABG HHb (Measured) (0-5) % ABG Methemoglobin (0.0-3.0) % ABG O2 Capacity (16-24) mL/dl Hgb O2 Saturation (95.0-98.0) % FiO2 % Sodium 138 (132-148) mmol/L Potassium 4.5 (3.6-5.0) mmol/L Chloride 111 H (98-107) mmol/L Carbon Dioxide 19 L (21-33) mmol/L Anion Gap 13 (10-20) BUN 78 H (7-21) mg/dL Creatinine 3.5 H (0.7-1.2) mg/dl Est GFR ( Amer) 16 Est GFR (Non-Af Amer) 13 POC Glucose (mg/dL) 214 H 241 H (65-110) mg/dL Random Glucose 194 H (70-110) mg/dL Calcium 7.2 L (8.4-10.5) mg/dL Blood Type Antibody Screen Crossmatch BBK History Checked 06/01/18 Range/Units 16:30 WBC (4.5-11.0) 10^3/uL RBC (3.5-6.1) 10^6/uL Hgb (12.0-16.0) g/dL Hct (36.0-48.0) % MCV (80.0-105.0) fl MCH (25.0-35.0) pg MCHC (31.0-37.0) g/dl RDW (11.5-14.5) % Plt Count (120.0-450.0) 10^3/uL MPV (7.0-11.0) fl Neut % (Auto) (50.0-68.0) % Lymph % (Auto) (22.0-35.0) % [place] % (Auto) (1.0-6.0) % Eos % (Auto) (1.5-5.0) % Baso % (Auto) (0.0-3.0) % Lymph # (Auto) (1.2-3.4) [place] # (Auto) (0.1-0.6) Eos # (Auto) (0.0-0.7) Baso # (Auto) (0.0-2.0) K/mm3 Absolute Neuts (auto) (1.4-6.5) pCO2 (35-45) mm/Hg pO2 (80-100) mm/Hg HCO3 (21-28) mmol/L ABG pH (7.35-7.45) ABG Total CO2 (22-28) mmol.L ABG O2 Saturation (95-98) % ABG O2 Content (15-23) ML/dl ABG Base Excess (-2.0-3.0) mmol/L ABG Hemoglobin (11.7-17.4) g/dL ABG Carboxyhemoglobin (0.5-1.5) % POC ABG HHb (Measured) (0-5) % ABG Methemoglobin (0.0-3.0) % ABG O2 Capacity (16-24) mL/dl Hgb O2 Saturation (95.0-98.0) % FiO2 % Sodium (132-148) mmol/L Potassium (3.6-5.0) mmol/L Chloride (98-107) mmol/L Carbon Dioxide (21-33) mmol/L Anion Gap (10-20) BUN (7-21) mg/dL Creatinine (0.7-1.2) mg/dl Est GFR ( Amer) Est GFR (Non-Af Amer) POC Glucose (mg/dL) (65-110) mg/dL Random Glucose (70-110) mg/dL Calcium (8.4-10.5) mg/dL Blood Type B POSITIVE Antibody Screen Negative Crossmatch See Detail BBK History Checked Patient has bt Laboratory Results - last 24 hr 06/01/18 06/02/18 06/02/18 16:30 18:46 21:23 WBC RBC Hgb Hct MCV MCH MCHC RDW Plt Count MPV Neut % (Auto) Lymph % (Auto) [place] % (Auto) Eos % (Auto) Baso % (Auto) Lymph # (Auto) [place] # (Auto) Eos # (Auto) Baso # (Auto) Absolute Neuts (auto) pCO2 pO2 HCO3 ABG pH ABG Total CO2 ABG O2 Saturation ABG O2 Content ABG Base Excess ABG Hemoglobin ABG Carboxyhemoglobin POC ABG HHb (Measured) ABG Methemoglobin ABG O2 Capacity Hgb O2 Saturation FiO2 Sodium Potassium Chloride Carbon Dioxide Anion Gap BUN Creatinine Est GFR ( Amer) Est GFR (Non-Af Amer) POC Glucose (mg/dL) 241 H 214 H Random Glucose Calcium Blood Type B POSITIVE Antibody Screen Negative Crossmatch See Detail BBK History Checked Patient has bt 06/03/18 06/03/18 06/03/18 06:00 06:00 07:51 WBC 20.9 H RBC 2.77 L Hgb 7.3 L Hct 22.6 L MCV 81.6 MCH 26.4 MCHC 32.3 RDW 17.2 H Plt Count 238 MPV 8.8 Neut % (Auto) 90.2 H Lymph % (Auto) 5.1 L [place] % (Auto) 4.3 Eos % (Auto) 0.3 L Baso % (Auto) 0.1 Lymph # (Auto) 1.1 L [place] # (Auto) 0.9 H Eos # (Auto) 0.1 Baso # (Auto) 0.02 Absolute Neuts (auto) 18.89 H pCO2 pO2 HCO3 ABG pH ABG Total CO2 ABG O2 Saturation ABG O2 Content ABG Base Excess ABG Hemoglobin ABG Carboxyhemoglobin POC ABG HHb (Measured) ABG Methemoglobin ABG O2 Capacity Hgb O2 Saturation FiO2 Sodium 138 Potassium 4.5 Chloride 111 H Carbon Dioxide 19 L Anion Gap 13 BUN 78 H Creatinine 3.5 H Est GFR ( Amer) 16 Est GFR (Non-Af Amer) 13 POC Glucose (mg/dL) 191 H Random Glucose 194 H Calcium 7.2 L Blood Type Antibody Screen Crossmatch BBK History Checked 06/03/18 09:02 WBC RBC Hgb Hct MCV MCH MCHC RDW Plt Count MPV Neut % (Auto) Lymph % (Auto) [place] % (Auto) Eos % (Auto) Baso % (Auto) Lymph # (Auto) [place] # (Auto) Eos # (Auto) Baso # (Auto) Absolute Neuts (auto) pCO2 32 L pO2 330.0 H HCO3 17.7 L ABG pH 7.35 ABG Total CO2 18.7 L ABG O2 Saturation 100.2 H ABG O2 Content 9.6 L ABG Base Excess -7.2 L ABG Hemoglobin 6.4 L ABG Carboxyhemoglobin 2.2 H POC ABG HHb (Measured) -0.2 L ABG Methemoglobin 1.4 ABG O2 Capacity 9.6 L Hgb O2 Saturation 96.6 FiO2 100.0 Sodium Potassium Chloride Carbon Dioxide Anion Gap BUN Creatinine Est GFR ( Amer) Est GFR (Non-Af Amer) POC Glucose (mg/dL) Random Glucose Calcium Blood Type Antibody Screen Crossmatch BBK History Checked Radiology Impressions: Radiology Impressions Chest X-Ray 02/05/19 17:39 IMPRESSION: No change in bilateral infiltrates. Endotracheal tube in satisfactory position. Nasogastric tube unchanged Chest X-Ray 06/03/18 09:46 IMPRESSION: Bilateral infiltrates unchanged. Endotracheal and nasogastric tubes unchanged. Critical Care Progress Note - Nutrition Nutrition: Nutrition Category Date Time Status NPO Diet [DIET] Diets 06/01/18 Lunch Ordered Attending/Attestation - Attestation I have personally seen and examined this patient.: Yes I have fully participated in the care of the patient.: Yes I have reviewed all pertinent clinical information: Yes Notes (Text): 06/03/18 11:58 The patient was seen and examined at the bedside. Patient care was discussed with resident Medical records, lab studies were reviewed and management issues were discussed and formulated. Agree with above treatment plans as outlined in 's note with addition of the following: Acute Respiratory Failure \ Hypoxemia \ Ischemic bowel \ GILBERTO \ CHF \ PVD \ DM 2 \ HTN \ OM \ Left toe gangrene \ SBO \ Anemia -hemodynamic monitoring to maintain MAP>65 -mechanical ventilation and o2 supplementation to maintain Spo2 >90 Pao2>60 -monitor for TV 6ml\kg IBW and plateau pressure <30 -ABG and CXR were reviewed ; PS trial of 8 PS plus 5 Peep tolerated well -Pt able to protect airway and has minimal secretions; we will proceed with extubation -continue nebs and pulmonary toileting -continue Abx; ID team f\u; f\u cultures -f\u Bun\Cr and U\o; monitor and replace e-lites; hold IVF -renal team f\u -NPO diet and aspiration precautions -transfuse PRBC as per primary team -surgical team post-op f\u -DVT \ PUD prophylaxis CCM time 36min
--- NOTE | 2018-06-03 11:53 | CP.PCM.PN ---
Subjective - Date & Time of Evaluation Date of Evaluation: 06/03/18 Time of Evaluation: 10:55 - Subjective Subjective: Patient still feels weak, tired, cold, no fevers, critically-ill. Objective - Vital Signs/Intake and Output Vital Signs (last 24 hours): Temp Pulse Resp BP Pulse Ox 97.6 F 98 H 25 H 186/68 H 93 L 06/02/18 12:14 06/02/18 12:14 06/02/18 12:14 06/02/18 12:14 06/02/18 12:14 Intake and Output: 06/02/18 06/02/18 06:59 18:59 Intake Total 546 Output Total 2852 Balance -2306 - Medications Medications: Current Medications Acetaminophen (Tylenol 325mg Tab) 650 mg PO Q6H PRN PRN Reason: Fever >100.4 F Last Admin: 05/30/18 01:30 Dose: 650 mg Acetaminophen (Tylenol 325mg Tab) 650 mg PO Q4H PRN PRN Reason: Pain, moderate (4-7) Last Admin: 05/30/18 22:44 Dose: 650 mg Amlodipine Besylate (Norvasc) 10 mg PO DAILY [facility] Last Admin: 06/02/18 09:34 Dose: Not Given Aspirin (Aspirin Chewable) 81 mg PO DAILY [facility] Last Admin: 06/01/18 10:17 Dose: Not Given Atorvastatin Calcium (Lipitor) 40 mg PO QOTHERDAY [facility] Last Admin: 06/02/18 09:33 Dose: Not Given Clonidine HCl (Catapres) 0.3 mg PO TID [facility] Last Admin: 06/02/18 09:33 Dose: Not Given Dextrose (Dextrose 50% Inj) 50 ml IVP ONCE PRN PRN Reason: Hypoglycemia Furosemide (Lasix) 40 mg IV BID [facility] Last Admin: 06/02/18 11:54 Dose: Not Given Glipizide (Glucotrol) 10 mg PO DAILY [facility] Last Admin: 05/27/18 10:00 Dose: Not Given Hydralazine HCl (Apresoline) 10 mg IV Q6H PRN PRN Reason: Systolic Blood Pressure Last Admin: 06/01/18 11:47 Dose: 10 mg Hydralazine HCl (Apresoline) 25 mg PO Q6H [facility] Last Admin: 06/02/18 05:37 Dose: Not Given Heparin Sodium/Sodium Chloride (Heparin 42911 Units/250ml 1/2 Normal Saline) 25,000 units in 250 mls @ 16.248 mls/hr IV .[id number] PRN; Protocol PRN Reason: ADJUST RATE PER PROTOCOL Last Titration: 05/31/18 10:20 Dose: 0 units/kg/hr, 0 mls/hr Sodium Chloride (Sodium Chloride 0.45%) 1,000 mls @ 50 mls/hr IV .Q20H PEYMAN Last Admin: 06/01/18 11:36 Dose: 50 mls/hr Metronidazole (Flagyl) 500 mg in 100 mls @ 100 mls/hr IVPB Q8 PEYMAN; Protocol Last Admin: 06/02/18 05:36 Dose: 100 mls/hr Linezolid (Zyvox 600mg/300ml D5w) 600 mg in 300 mls @ 200 mls/hr IVPB Q12 PEYMAN; Protocol Stop: 06/08/18 13:31 Last Admin: 06/02/18 10:00 Dose: 200 mls/hr Aztreonam (Azactam 1 Gm) 100 mls @ 100 mls/hr IVPB Q12 PEYMAN; Protocol Stop: 06/09/18 22:01 Sodium Chloride (Sodium Chloride 0.45%) 1,000 mls @ 75 mls/hr IV .[id number] [facility] Last Admin: 06/02/18 13:47 Dose: Not Given Insulin Human Lispro (Humalog High) 0 units SC ACHS [facility]; Protocol Last Admin: 06/02/18 11:54 Dose: Not Given Insulin Lispro Protam/Lispro Human (Humalog Mix 75/25) 10 units SC ACBD [facility] Last Admin: 06/02/18 08:18 Dose: Not Given Isosorbide Mononitrate (Imdur Er) 30 mg PO 0600 [facility] Last Admin: 06/02/18 05:37 Dose: Not Given Labetalol HCl (Trandate) 200 mg PO BID [facility] Last Admin: 06/02/18 09:34 Dose: Not Given Levalbuterol HCl (Xopenex) 1.25 mg IH T1EQTID [facility] Last Admin: 06/02/18 14:21 Dose: Not Given Meclizine HCl (Antivert) 25 mg PO TID PRN PRN Reason: dizzy Last Admin: 05/30/18 11:26 Dose: 25 mg Metoprolol Tartrate (Lopressor) 50 mg PO Q12H [facility] Last Admin: 05/30/18 01:30 Dose: 50 mg Metoprolol Tartrate (Lopressor) 5 mg IVP Q6H [facility] Last Admin: 06/02/18 11:59 Dose: 5 mg Nitroglycerin (Nitro-Bid 2% Oint) 1 ea TOP Q8H [facility] Last Admin: 05/27/18 11:21 Dose: Not Given Ondansetron HCl (Zofran Inj) 4 mg IVP Q6H PRN PRN Reason: Nausea/Vomiting Oxychlorosene Sodium (Clorpactin Wcs-90) 2 gm TOP DAILY [facility] Pantoprazole Sodium (Protonix Inj) 40 mg IVP DAILY [facility] Last Admin: 06/02/18 10:47 Dose: Not Given Silver Sulfadiazine (Silvadene 1% 25 Gm) 0 gm TP BID [facility] Last Admin: 06/02/18 11:55 Dose: Not Given Simethicone (Mylicon Chew Tab) 80 mg PO HS PRN PRN Reason: GI distress Last Admin: 05/31/18 09:48 Dose: 80 mg - Labs Labs: 06/02/18 09:50 06/02/18 10:05 PT 23.6 SECONDS (9.4-12.5) H 06/02/18 10:05 INR 2.09 06/02/18 10:05 APTT 34.5 Seconds (26.9-38.3) 06/02/18 10:05 - Constitutional Appears: Chronically Ill - Head Exam Head Exam: NORMAL INSPECTION - ENT Exam ENT Exam: Mucous Membranes Moist - Neck Exam Neck Exam: absent: Meningismus - Respiratory Exam Respiratory Exam: Decreased Breath Sounds - Cardiovascular Exam Cardiovascular Exam: +S1, +S2 - GI/Abdominal Exam GI & Abdominal Exam: Soft. absent: Tenderness Additional comments: dressings in place, drain in place Assessment and Plan - Assessment and Plan (Free Text) Plan: Assessment sepsis due to left 2nd toe gangrene with distal phalanx osteomyelitis and now with purulent skin and skin structure infection S/P bedside I and 06/01/2018, in this patient with probable peripheral vascular disease, went for angioplasty 05/27/2018, as well as incarcerated abdominal hernia S/P ex-lap jejunocecal anastomosis, small bowel resection, appendectomy, POD #1 history of right leg skin and skin structure infection - patient has had a history of infection in the same leg with fasciotomy, I and D and debridement in September 2014 HTN DM history of left knee surgery history of shoulder surgery Atrial fibrillation history of CVA Plan discussed with Podiatry Dr. Kim - bedside I and D 2 days ago and will follow up cultures continue Zyvox and Azactam and Flagyl and will continue to monitor clinically, trend WBC count patient is critically-ill
--- NOTE | 2018-06-03 11:56 | CP.PCM.PN ---
Subjective - Date & Time of Evaluation Date of Evaluation: 06/03/18 Time of Evaluation: 11:51 - Subjective Subjective: General Surgery Progress Note for Dr. Morrell This 67F was seen and examined this AM at bedside. No acute events overight. Patient reports pain significantly improved from yesterday. She denies flatus or BM. She was extubated today. Drain serosanguinous 70cc from each drain since OR. Objective - Vital Signs/Intake and Output Vital Signs (last 24 hours): Temp Pulse Resp BP Pulse Ox 97 F L 92 H 12 168/87 H 100 06/03/18 06:00 06/03/18 10:45 06/02/18 18:00 06/03/18 11:25 06/03/18 06:00 Intake and Output: 06/03/18 06/03/18 06:59 18:59 Intake Total 1700 56 Output Total 615 Balance 1085 56 - Medications Medications: Current Medications Acetaminophen (Tylenol 325mg Tab) 650 mg PO Q6H PRN PRN Reason: Fever >100.4 F Last Admin: 05/30/18 01:30 Dose: 650 mg Acetaminophen (Tylenol 325mg Tab) 650 mg PO Q4H PRN PRN Reason: Pain, moderate (4-7) Last Admin: 05/30/18 22:44 Dose: 650 mg Albuterol/Ipratropium (Duoneb 3 Mg/0.5 Mg (3 Ml) Ud) 3 ml IH Q2H PRN PRN Reason: Shortness of Breath Amlodipine Besylate (Norvasc) 10 mg PO DAILY [facility] Last Admin: 06/02/18 09:34 Dose: Not Given Aspirin (Aspirin Chewable) 81 mg PO DAILY [facility] Last Admin: 06/03/18 10:46 Dose: 81 mg Atorvastatin Calcium (Lipitor) 40 mg PO QOTHERDAY [facility] Last Admin: 06/02/18 09:33 Dose: Not Given Clonidine HCl (Catapres) 0.3 mg PO TID [facility] Last Admin: 06/03/18 10:50 Dose: Not Given Dextrose (Dextrose 50% Inj) 50 ml IVP ONCE PRN PRN Reason: Hypoglycemia Heparin Sodium (Porcine) (Heparin) 5,000 units SC Q8 [facility]; Protocol Last Admin: 06/03/18 05:08 Dose: 5,000 units Hydralazine HCl (Apresoline) 10 mg IV Q6H PRN PRN Reason: Systolic Blood Pressure Last Admin: 06/01/18 11:47 Dose: 10 mg Hydralazine HCl (Apresoline) 25 mg PO Q6H [facility] Last Admin: 06/02/18 05:37 Dose: Not Given Hydromorphone HCl (Dilaudid) 0.5 mg IVP Q4H PRN PRN Reason: Pain, moderate (4-7) Heparin Sodium/Sodium Chloride (Heparin 99615 Units/250ml 1/2 Normal Saline) 25,000 units in 250 mls @ 16.248 mls/hr IV .[id number] PRN; Protocol PRN Reason: ADJUST RATE PER PROTOCOL Last Titration: 05/31/18 10:20 Dose: 0 units/kg/hr, 0 mls/hr Metronidazole (Flagyl) 500 mg in 100 mls @ 100 mls/hr IVPB Q8 [facility]YMAN; Protocol Last Admin: 06/03/18 05:08 Dose: 100 mls/hr Linezolid (Zyvox 600mg/300ml D5w) 600 mg in 300 mls @ 200 mls/hr IVPB Q12 [facility]YMAN; Protocol Stop: 06/08/18 13:31 Last Admin: 06/03/18 10:46 Dose: 200 mls/hr Aztreonam (Azactam 1 Gm) 100 mls @ 100 mls/hr IVPB Q12 [facility]YMAN; Protocol Stop: 06/09/18 22:01 Last Admin: 06/03/18 10:46 Dose: 100 mls/hr Insulin Human Lispro (Humalog High) 0 units SC ACHS [facility]; Protocol Last Admin: 06/03/18 08:00 Dose: Not Given Insulin Lispro Protam/Lispro Human (Humalog Mix 75/25) 10 units SC ACBD [facility] Last Admin: 06/03/18 08:03 Dose: Not Given Isosorbide Mononitrate (Imdur Er) 30 mg PO 0600 [facility] Last Admin: 06/03/18 05:08 Dose: Not Given Labetalol HCl (Trandate) 200 mg PO BID [facility] Last Admin: 06/02/18 09:34 Dose: Not Given Levalbuterol HCl (Xopenex) 1.25 mg IH [id number] [facility] Last Admin: 06/03/18 07:56 Dose: 1.25 mg Meclizine HCl (Antivert) 25 mg PO TID PRN PRN Reason: dizzy Last Admin: 05/30/18 11:26 Dose: 25 mg Metoprolol Tartrate (Lopressor) 50 mg PO Q12H [facility] Last Admin: 05/30/18 01:30 Dose: 50 mg Metoprolol Tartrate (Lopressor) 5 mg IVP Q6H [facility] Last Admin: 06/03/18 10:45 Dose: 5 mg Nitroglycerin (Nitro-Bid 2% Oint) 1 ea TOP Q8H [facility] Last Admin: 06/03/18 10:48 Dose: 1 ea Ondansetron HCl (Zofran Inj) 4 mg IVP Q6H PRN PRN Reason: Nausea/Vomiting Oxychlorosene Sodium (Clorpactin Wcs-90) 2 gm TOP DAILY [facility] Last Admin: 06/03/18 10:45 Dose: 2 gm Pantoprazole Sodium (Protonix Inj) 40 mg IVP DAILY [facility] Last Admin: 06/03/18 10:45 Dose: 40 mg Silver Sulfadiazine (Silvadene 1% 25 Gm) 0 gm TP BID [facility] Last Admin: 06/03/18 10:49 Dose: 25 gm Simethicone (Mylicon Chew Tab) 80 mg PO PCHS PRN PRN Reason: GI distress Last Admin: 05/31/18 09:48 Dose: 80 mg - Labs Labs: 06/03/18 06:00 06/03/18 06:00 PT 23.6 SECONDS (9.4-12.5) H 06/02/18 10:05 INR 2.09 06/02/18 10:05 APTT 34.5 Seconds (26.9-38.3) 06/02/18 10:05 - Constitutional Appears: Non-toxic, No Acute Distress - Head Exam Head Exam: ATRAUMATIC, NORMOCEPHALIC - Eye Exam Eye Exam: EOMI - ENT Exam ENT Exam: Mucous Membranes Moist - Respiratory Exam Respiratory Exam: NORMAL BREATHING PATTERN - Cardiovascular Exam Cardiovascular Exam: +S1, +S2 - GI/Abdominal Exam GI & Abdominal Exam: Soft, Tenderness. absent: Distended, Firm, Guarding, Rigid Additional comments: Dressing clean dry and intact - Neurological Exam Neurological Exam: Alert, Awake - Psychiatric Exam Psychiatric exam: Normal Affect, Normal Mood - Skin Skin Exam: Dry, Intact Assessment and Plan - Assessment and Plan (Free Text) Assessment: 67F with strangulated ventral hernia s/p small bowel resection with primary anastamosis POD#1 NGT Kelley Pain control Monitor outputs Abx Further recs per Dr. Petros Ortiz PGY3
--- NOTE | 2018-06-03 12:20 | PN ---
DATE: 06/03/2018 SUBJECTIVE: The patient is a 67-year-old female seen at bedside for continued evaluation and management of a gangrenous left second digit with underlying abscess formation. She is status post small bowel resection 1 day. She is intubated and is unable to answer any questions at this time. OBJECTIVE: The patient's vital signs revealed temperature of 97, pulse rate of 81, blood pressure of 131/58. Nonpalpable pedal pulses noted bilaterally. Capillary refilling time is delayed on all digits and absent on the left second digit. There is noted to be gangrene of the left second digit with an open wound at the plantar aspect of the left second metatarsophalangeal joint secondary to incision and drainage. There is noted to be serosanguineous drainage at this time, there is malodor. There is no active purulence emanating from the wound. The area has calmed down since the incision and drainage. However, the toe does need to be removed and the underlying structures need to be flushed clean. LABORATORY DATA: Laboratory findings reveal white count of 20.9, down from 23.6 yesterday. Hemoglobin of 7.3, hematocrit of 22.6, platelet count of 638. The culture and sensitivity taken on 06/01/2018 after a bedside incision and drainage reveals no growth. ASSESSMENT: A 67-year-old independent diabetic female with left second digit gangrene with underlying abscess formation of the left second metatarsophalangeal joint. PLAN The patient was seen and evaluated. Her wound was cleansed and flushed with Clorpactin solution, sterile iodoform packing was placed inside the incision site with a dry sterile dressing applied. She was scheduled for amputation tomorrow before cancellation and we will cancel the case until the patient is more stabilized. We will continue with local wound care with plans for amputation once the patient is stable from a cardiac standpoint. Gil Kim DPM ABISAI
--- NOTE | 2018-06-03 12:22 | PN ---
DATE: 06/03/2018 SUBJECTIVE: The patient is in bed in ICU on the ventilator. She is sedated. She is status post exploratory laparotomy with small bowel resection for gangrenous small bowel and a incarcerated ventral hernia. PHYSICAL EXAMINATION VITAL SIGNS: Reveal temperature of 97, blood pressure 131/58 and heart rate of 81. HEENT: Reveal sclerae to be white. Conjunctivae pale. She has an ET tube in her mouth. NECK: Supple. CHEST: Reveal distant breath sounds. HEART: Exam reveals regular rate and rhythm. ABDOMEN: Soft. She has two drains in the lower abdomen draining serosanguineous fluid. EXTREMITIES: Show left foot to be in a dressing. LABORATORY DATA: Reveal white blood cell count 20.9, hemoglobin 7.3 and platelet count 238,000. Chemistries reveal BUN 78, creatinine 3.5 and bicarb 19. IMPRESSION: This is 67-year-old female with a infected second left toe and small bowel obstruction secondary to incarcerated ventral hernia with segment of gangrenous distal small bowel, status post exploratory laparotomy and small bowel resection. Her prognosis is guarded. RECOMMENDATIONS: 1. Transfuse 2 units of packed red blood cells to a hematocrit of 30%. 2. Continue close observation. 3. Continue IV Flagyl and aztreonam. Norm Gaxiola MD
[2018-06-03] MEDS: HYDROmorphone 0.5 mg/0.5 ml ISec IVP PRN ×3 (12:31→21:23)
--- NOTE | 2018-06-03 12:38 | PN ---
DATE: 06/03/2018 SUBJECTIVE: The patient is seen lying in bed in the CCU. She remains intubated after her surgery yesterday for an incarcerated hernia. She is arousable and denies any discomfort. MEDICATIONS: Her current medications include IV hydralazine, Azactam, Diprivan, DuoNeb inhaler, Flagyl, subcutaneous heparin, insulin, IV metoprolol. OBJECTIVE GENERAL: She is an overweight middle-aged woman. VITAL SIGNS: Her blood pressure is 130/60 with a pulse of 80 in atrial fibrillation, respirations of 16. She is afebrile. HEENT: She is orally intubated. CHEST: Clear to auscultation anteriorly. HEART: PMI displaced laterally with soft systolic murmur at the apex. ABDOMEN: Soft. Bowel sounds are absent. Dressing is clean and dry. EXTREMITIES: 2+ leg edema. Her left foot is dressed. DIAGNOSTIC DATA: Potassium is 4.5, BUN and creatinine are 78 and 3.5. White count 20.9, hemoglobin and hematocrit 7.3 and 22.6 with platelet count of 238,000. Arterial blood gas is pending. She remains on 100% FiO2 with 5 of PEEP. IMPRESSION 1. Status post urgent abdominal surgery for incarcerated hernia, clinically stable at the present time. 2. Coronary artery disease, status post remote percutaneous coronary intervention, clinically stable. 3. Recent contrast nephropathy with creatinine now at 3.5. 4. Peripheral vascular disease, status post percutaneous intervention of her left superficial femoral artery, popliteal and anterior tibial arteries. 5. Gangrene, left second toe. 6. Rest of problems as noted. RECOMMENDATIONS: Current IV hydralazine and beta ary will continue for now. She does have evidence of dark drainage from her NG tube and this should be checked for guaiac positivity. GI and DVT prophylaxis should continue. Resumption of anticoagulation would be appropriate if she has no evidence of GI bleeding and her hemoglobin remains stable. Gradual ventilatory weaning as tolerated is advised. Transfusion may be beneficial. We will continue to follow and make further recommendations as appropriate. Mauro Dowell MD
--- NOTE | 2018-06-03 16:15 | PN ---
DATE: 06/03/2018 SUBJECTIVE: The patient is 67-year-old, seen and examined. Currently on ventilator being prepped to be extubated today. She is awake and alert, asking for this tube to come out. PHYSICAL EXAMINATION: VITAL SIGNS: She is afebrile. Pulse 92, respiration 18 and blood pressure 156/67. LUNGS: Bilateral fair airflow. No rhonchi or crackle. HEART: S1 and S2, audible. ABDOMEN: Soft, but tender. EXTREMITIES: Bilateral leg no edema. LABORATORY DATA: WBC 20.9, hemoglobin 7.3, hematocrit 22.6 and platelet 238. PT 23.6 and INR 2.09. Chemistry; sodium 138, potassium 4.5, chloride 111, CO2 of 19, BUN 78, creatinine 3.5 and blood sugar of 191. ASSESSMENT: 1. Partial small bowel obstruction. 2. Ventral hernia, status post laparotomy and partial bowel resection and the patient underwent small bowel resection cecectomy, appendectomy and jejunocecal anastomosis and ventral hernia repair. 3. Left second toe gangrene. 4. Severe peripheral vascular disease. 5. Insulin dependant diabetes. PLAN: The patient is going to be extubated today. She is currently on Azactam. She is on metronidazole. Her blood sugar is being monitored. Analgesic as needed. She will receive 2 blood transfusion. We will followup her CBC and CMP in a.m. Jason Laws MD
[2018-06-03 18:27] LABS: HEMOGLOBIN 9.6 g/dL (12.0-16.0); MEAN CELL VOLUME 81.9 fl (80.0-105.0); MEAN CORPUSCULAR HEMOGLOBIN 26.3 pg (25.0-35.0); MEAN CORPUSCULAR HGB CONC 32.1 g/dl (31.0-37.0); MEAN PLATELET VOLUME 9.1 fl (7.0-11.0); RBC 3.65 10^6/uL (3.5-6.1); RED CELL DISTRIBUTION WIDTH 16.5 % (11.5-14.5); WHITE BLOOD COUNT 21.3 10^3/uL (4.5-11.0)
[2018-06-04] MEDS: HYDROmorphone 0.5 mg/0.5 ml ISec IVP PRN ×6 (01:05→23:40)
[2018-06-04] MEDS: Levalbuterol 1.25 MG/3 ML Inhal Soln UD IH SCH ×4 (01:09→20:49)
[2018-06-04] MEDS: Nitroglycerin 2% Ointment Foilpak UD TOP SCH ×3 (02:21→18:43)
[2018-06-04] MEDS ORDERED: HYDROmorphone 0.5 mg/0.5 ml ISec IVP STA (02:56)
[2018-06-04] MEDS: metroNIDAZOLE IV 500 mg/100 ml 500 MG/100 ML BAG IVPB SCH ×3 (05:24→21:32)
[2018-06-04] MEDS: Metoprolol 1 mg/ml Inj IVP SCH ×4 (05:27→22:45)
[2018-06-04 06:53] LABS: BASO # 0.03 K/mm3 (0.0-2.0); BASO % 0.1 % (0.0-3.0); EOS # 0.3 (0.0-0.7); EOS % 1.5 % (1.5-5.0); HEMOGLOBIN 8.6 g/dL (12.0-16.0); LYMPH # 0.9 (1.2-3.4); LYMPH % 4.4 % (22.0-35.0); MEAN CELL VOLUME 81.8 fl (80.0-105.0); MEAN CORPUSCULAR HEMOGLOBIN 26.1 pg (25.0-35.0); MONO # 1.5 (0.1-0.6); MONO % 6.9 % (1.0-6.0); RBC 3.29 10^6/uL (3.5-6.1); WHITE BLOOD COUNT 21.3 10^3/uL (4.5-11.0)
[2018-06-04 07:09] LABS: CALCIUM 7.4 mg/dL (8.4-10.5)
[2018-06-04] MEDS: Insulin Lispro (HUMAlog) HIGH Coverage SC SCH ×4 (09:04→21:34)
[2018-06-04] MEDS: Insulin Lispro (humaLOG) MIX 75/25(10 ml) SC SCH ×2 (09:08→18:41)
[2018-06-04] MEDS: Aztreonam 1 Gm in NS 100mL 100 ML IVPB SCH ×2 (09:26→21:33)
[2018-06-04] MEDS: Linezolid 600 mg in D5W 300 ml 600 MG/300 ML BAG IVPB SCH ×2 (09:27→21:35)
--- NOTE | 2018-06-04 10:11 | RAD ---
Date of service: 06/04/2018 HISTORY: r/o infiltrate COMPARISON: 06/03/2018 FINDINGS: LUNGS: Improved upper lobe infiltrates. Persistent perihilar infiltrates. PLEURA: No significant pleural effusion identified, no pneumothorax apparent. CARDIOVASCULAR: Aortic calcification Mild cardiomegaly vascular congestion OSSEOUS STRUCTURES: No significant abnormalities. VISUALIZED UPPER ABDOMEN: Nasogastric tube in satisfactory position OTHER FINDINGS: None. IMPRESSION: Improved upper lobe infiltrates. Persistent perihilar infiltrates.
--- NOTE | 2018-06-04 10:26 | CP.CCUPN ---
<Ariane Hernandez - Last Filed: 06/04/18 10:20> CCU Subjective - Physician Review Subjective (Free Text): Ariane Hernandez PGY1 Critical Care Progress Note Patient seen and examined at bedside this morning. No acute events overnight. POD #2 laparatomy with appendectomy, small bowel resection and jejunocecal anastomosis from necrotic bowel. Patient extubated yesterday. Currently on non rebreather mask with oxygen sat of 92%. Will transition to high flow oxygen. She currently denies CP, SOB, nausea and vomiting but does admit to right sided abdominal pain. CCU Objective - Vital Signs / Intake & Output Vital Signs (Last 4 hours): Vital Signs Pulse Resp BP 06/04/18 09:49 92 H 159/63 H 06/04/18 09:43 22 06/04/18 09:25 159/63 H Intake and Output (Last 8hrs): Intake & Output 06/03/18 06/04/18 06/04/18 22:59 06:59 14:59 Intake Total 500 700 Output Total 920 300 Balance -420 400 Intake: IV 500 700 Right Forearm 500 700 Output: Drainage 195 100 Left 45 25 Right 150 75 Urine 725 200 Urethral (Kelley) 725 200 - Physical Exam Head: Positive for: Atraumatic, Normocephalic Pupils: Positive for: PERRL Extroacular Muscles: Positive for: EOMI Conjunctiva: Positive for: Normal Mouth: Positive for: Moist Mucous Membranes Neck: Positive for: Normal Range of Motion Respiratory/Chest: Positive for: Good Air Exchange, Other (minimal crackles R > L ). Negative for: Respiratory Distress, Accessory Muscle Use Cardiovascular: Positive for: Normal S1, S2, Irregular Rhythm. Negative for: Murmurs Abdomen: Positive for: Normal Bowel Sounds, Other (dressing is non draining/bleeding). Negative for: Tenderness, Distention, Peritoneal Signs Back: Positive for: Normal Inspection Upper Extremity: Positive for: Normal Inspection. Negative for: Cyanosis, Edema Lower Extremity: Positive for: Normal Inspection, Normal ROM, Tenderness, Other (Grangrenous left 2nd toe noted). Negative for: Edema, CALF TENDERNESS, Marek's Sign Neurological: Positive for: GCS=15, CN II-XII Intact, Speech Normal Skin: Positive for: Warm, Dry, Normal Color. Negative for: Rashes Psychiatric: Positive for: Alert, Oriented x 3 - Medications Active Medications: Active Medications Generic Name Dose Route Start Last Admin Trade Name Freq PRN Reason Stop Dose Admin Acetaminophen 650 mg 05/21/18 20:42 05/30/18 01:30 Tylenol 325mg Tab PO 650 mg Q6H PRN Administration Fever >100.4 F Albuterol/Ipratropium 3 ml 06/02/18 18:21 Duoneb 3 Mg/0.5 Mg (3 Ml) Ud IH Q2H PRN Shortness of Breath Amlodipine Besylate 10 mg 05/22/18 10:00 06/02/18 09:34 Norvasc PO Not Given DAILY [facility] Aspirin 81 mg 05/28/18 10:00 06/03/18 10:46 Aspirin Chewable PO 81 mg DAILY [facility] Administration Atorvastatin Calcium 40 mg 05/23/18 10:00 06/02/18 09:33 Lipitor PO Not Given QOTHERDAY [facility] Clonidine HCl 0.3 mg 05/22/18 10:00 06/03/18 10:50 Catapres PO Not Given TID [facility] Dextrose 50 ml 05/23/18 16:44 Dextrose 50% Inj IVP ONCE PRN Hypoglycemia Heparin Sodium (Porcine) 5,000 units 06/02/18 22:00 06/04/18 05:25 Heparin SC 5,000 units Q8 [facility] Administration Protocol Hydralazine HCl 10 mg 05/31/18 06:15 06/04/18 01:05 Apresoline IV 10 mg Q6H PRN Administration Systolic Blood Pressure Hydralazine HCl 25 mg 05/31/18 06:15 06/02/18 05:37 Apresoline PO Not Given Q6H [facility] Hydromorphone HCl 0.5 mg 06/03/18 11:47 06/04/18 09:26 Dilaudid IVP 0.5 mg Q4H PRN Administration Pain, moderate (4-7) Heparin Sodium/Sodium Chloride 25,000 units in 250 mls @ 16.248 mls/hr 05/30/18 03:19 05/31/18 10:20 Heparin 27310 Units/250ml 1/2 Normal Saline IV 0 units/kg/hr .[id number] PRN 0 mls/hr ADJUST RATE PER PROTOCOL Titration Protocol 18 UNITS/KG/HR Metronidazole 500 mg in 100 mls @ 100 mls/hr 06/01/18 14:00 06/04/18 05:24 Flagyl IVPB 100 mls/hr Q8 [facility] Administration Protocol Linezolid 600 mg in 300 mls @ 200 mls/hr 06/01/18 13:30 06/04/18 09:27 Zyvox 600mg/300ml D5w IVPB 06/08/18 13:31 200 mls/hr Q12 [facility] Administration Protocol Aztreonam 100 mls @ 100 mls/hr 06/02/18 22:00 06/04/18 09:26 Azactam 1 Gm IVPB 06/09/18 22:01 100 mls/hr Q12 [facility] Administration Protocol Insulin Human Lispro 0 units 05/21/18 22:00 06/04/18 09:04 Humalog High SC Not Given ACHS [facility] Protocol Insulin Lispro Protam/Lispro Human 10 units 05/25/18 16:30 06/04/18 09:08 Humalog Mix 75/25 SC Not Given ACBD [facility] Isosorbide Mononitrate 30 mg 05/22/18 06:00 06/03/18 05:08 Imdur Er PO Not Given 0600 [facility] Labetalol HCl 200 mg 05/30/18 06:54 06/02/18 09:34 Trandate PO Not Given BID [facility] Levalbuterol HCl 1.25 mg 05/26/18 14:00 06/04/18 07:16 Xopenex IH 1.25 mg [id number] [facility] Administration Meclizine HCl 25 mg 05/21/18 20:02 05/30/18 11:26 Antivert PO 25 mg TID PRN Administration dizzy Metoprolol Tartrate 50 mg 05/28/18 13:30 05/30/18 01:30 Lopressor PO 50 mg Q12H [facility] Administration Metoprolol Tartrate 5 mg 06/02/18 10:45 06/04/18 09:49 Lopressor IVP 5 mg Q6H [facility] Administration Nitroglycerin 1 ea 05/27/18 10:45 06/04/18 09:49 Nitro-Bid 2% Oint TOP 1 ea Q8H [facility] Administration Ondansetron HCl 4 mg 06/01/18 10:58 Zofran Inj IVP Q6H PRN Nausea/Vomiting Oxychlorosene Sodium 2 gm 06/02/18 10:00 06/03/18 10:45 Clorpactin Wcs-90 TOP 2 gm DAILY [facility] Administration Pantoprazole Sodium 40 mg 06/01/18 13:30 06/03/18 10:45 Protonix Inj IVP 40 mg DAILY [facility] Administration Silver Sulfadiazine 0 gm 05/22/18 18:00 06/03/18 10:49 Silvadene 1% 25 Gm TP 25 gm BID [facility] Administration Simethicone 80 mg 05/30/18 04:02 05/31/18 09:48 Mylicon Chew Tab PO 80 mg PCHS PRN Administration GI distress - Patient Studies Lab Studies: Microbiology Studies 06/01/18 14:00 Gram Stain - Final Foot - Right Wound Culture - Final Corynebacterium Species Lab Studies 06/04/18 06/04/18 06/03/18 Range/Units 06:10 06:10 21:31 WBC 21.3 H (4.5-11.0) 10^3/uL RBC 3.29 L (3.5-6.1) 10^6/uL Hgb 8.6 L (12.0-16.0) g/dL Hct 26.9 L (36.0-48.0) % MCV 81.8 (80.0-105.0) fl MCH 26.1 (25.0-35.0) pg MCHC 32.0 (31.0-37.0) g/dl RDW 17.0 H (11.5-14.5) % Plt Count 227 (120.0-450.0) 10^3/uL MPV 9.0 (7.0-11.0) fl Neut % (Auto) 87.1 H (50.0-68.0) % Lymph % (Auto) 4.4 L (22.0-35.0) % [place] % (Auto) 6.9 H (1.0-6.0) % Eos % (Auto) 1.5 (1.5-5.0) % Baso % (Auto) 0.1 (0.0-3.0) % Lymph # (Auto) 0.9 L (1.2-3.4) [place] # (Auto) 1.5 H (0.1-0.6) Eos # (Auto) 0.3 (0.0-0.7) Baso # (Auto) 0.03 (0.0-2.0) K/mm3 Absolute Neuts (auto) 18.55 H (1.4-6.5) Sodium 139 (132-148) mmol/L Potassium 4.4 (3.6-5.0) mmol/L Chloride 112 H (98-107) mmol/L Carbon Dioxide 20 L (21-33) mmol/L Anion Gap 12 (10-20) BUN 79 H (7-21) mg/dL Creatinine 3.6 H (0.7-1.2) mg/dl Est GFR ( Amer) 15 Est GFR (Non-Af Amer) 13 POC Glucose (mg/dL) 183 H (65-110) mg/dL Random Glucose 135 H (70-110) mg/dL Calcium 7.4 L (8.4-10.5) mg/dL Blood Type Antibody Screen Crossmatch BBK History Checked 06/03/18 06/03/18 06/03/18 Range/Units 17:42 16:01 11:17 WBC 21.3 H (4.5-11.0) 10^3/uL RBC 3.65 (3.5-6.1) 10^6/uL Hgb 9.6 L D (12.0-16.0) g/dL Hct 29.9 L (36.0-48.0) % MCV 81.9 (80.0-105.0) fl MCH 26.3 (25.0-35.0) pg MCHC 32.1 (31.0-37.0) g/dl RDW 16.5 H (11.5-14.5) % Plt Count 210 (120.0-450.0) 10^3/uL MPV 9.1 (7.0-11.0) fl Neut % (Auto) (50.0-68.0) % Lymph % (Auto) (22.0-35.0) % [place] % (Auto) (1.0-6.0) % Eos % (Auto) (1.5-5.0) % Baso % (Auto) (0.0-3.0) % Lymph # (Auto) (1.2-3.4) [place] # (Auto) (0.1-0.6) Eos # (Auto) (0.0-0.7) Baso # (Auto) (0.0-2.0) K/mm3 Absolute Neuts (auto) (1.4-6.5) Sodium (132-148) mmol/L Potassium (3.6-5.0) mmol/L Chloride (98-107) mmol/L Carbon Dioxide (21-33) mmol/L Anion Gap (10-20) BUN (7-21) mg/dL Creatinine (0.7-1.2) mg/dl Est GFR ( Amer) Est GFR (Non-Af Amer) POC Glucose (mg/dL) 229 H 210 H (65-110) mg/dL Random Glucose (70-110) mg/dL Calcium (8.4-10.5) mg/dL Blood Type Antibody Screen Crossmatch BBK History Checked 06/01/18 Range/Units 16:30 WBC (4.5-11.0) 10^3/uL RBC (3.5-6.1) 10^6/uL Hgb (12.0-16.0) g/dL Hct (36.0-48.0) % MCV (80.0-105.0) fl MCH (25.0-35.0) pg MCHC (31.0-37.0) g/dl RDW (11.5-14.5) % Plt Count (120.0-450.0) 10^3/uL MPV (7.0-11.0) fl Neut % (Auto) (50.0-68.0) % Lymph % (Auto) (22.0-35.0) % [place] % (Auto) (1.0-6.0) % Eos % (Auto) (1.5-5.0) % Baso % (Auto) (0.0-3.0) % Lymph # (Auto) (1.2-3.4) [place] # (Auto) (0.1-0.6) Eos # (Auto) (0.0-0.7) Baso # (Auto) (0.0-2.0) K/mm3 Absolute Neuts (auto) (1.4-6.5) Sodium (132-148) mmol/L Potassium (3.6-5.0) mmol/L Chloride (98-107) mmol/L Carbon Dioxide (21-33) mmol/L Anion Gap (10-20) BUN (7-21) mg/dL Creatinine (0.7-1.2) mg/dl Est GFR ( Amer) Est GFR (Non-Af Amer) POC Glucose (mg/dL) (65-110) mg/dL Random Glucose (70-110) mg/dL Calcium (8.4-10.5) mg/dL Blood Type B POSITIVE Antibody Screen Negative Crossmatch See Detail BBK History Checked Patient has bt Laboratory Results - last 24 hr 06/01/18 06/03/18 06/03/18 16:30 11:17 16:01 WBC RBC Hgb Hct MCV MCH MCHC RDW Plt Count MPV Neut % (Auto) Lymph % (Auto) [place] % (Auto) Eos % (Auto) Baso % (Auto) Lymph # (Auto) [place] # (Auto) Eos # (Auto) Baso # (Auto) Absolute Neuts (auto) Sodium Potassium Chloride Carbon Dioxide Anion Gap BUN Creatinine Est GFR ( Amer) Est GFR (Non-Af Amer) POC Glucose (mg/dL) 210 H 229 H Random Glucose Calcium Blood Type B POSITIVE Antibody Screen Negative Crossmatch See Detail BBK History Checked Patient has bt 06/03/18 06/03/18 06/04/18 17:42 21:31 06:10 WBC 21.3 H RBC 3.65 Hgb 9.6 L D Hct 29.9 L MCV 81.9 MCH 26.3 MCHC 32.1 RDW 16.5 H Plt Count 210 MPV 9.1 Neut % (Auto) Lymph % (Auto) [place] % (Auto) Eos % (Auto) Baso % (Auto) Lymph # (Auto) [place] # (Auto) Eos # (Auto) Baso # (Auto) Absolute Neuts (auto) Sodium 139 Potassium 4.4 Chloride 112 H Carbon Dioxide 20 L Anion Gap 12 BUN 79 H Creatinine 3.6 H Est GFR ( Amer) 15 Est GFR (Non-Af Amer) 13 POC Glucose (mg/dL) 183 H Random Glucose 135 H Calcium 7.4 L Blood Type Antibody Screen Crossmatch BBK History Checked 06/04/18 06:10 WBC 21.3 H RBC 3.29 L Hgb 8.6 L Hct 26.9 L MCV 81.8 MCH 26.1 MCHC 32.0 RDW 17.0 H Plt Count 227 MPV 9.0 Neut % (Auto) 87.1 H Lymph % (Auto) 4.4 L [place] % (Auto) 6.9 H Eos % (Auto) 1.5 Baso % (Auto) 0.1 Lymph # (Auto) 0.9 L [place] # (Auto) 1.5 H Eos # (Auto) 0.3 Baso # (Auto) 0.03 Absolute Neuts (auto) 18.55 H Sodium Potassium Chloride Carbon Dioxide Anion Gap BUN Creatinine Est GFR ( Amer) Est GFR (Non-Af Amer) POC Glucose (mg/dL) Random Glucose Calcium Blood Type Antibody Screen Crossmatch BBK History Checked Radiology Impressions: Radiology Impressions Chest X-Ray 06/02/18 17:39 IMPRESSION: No change in bilateral infiltrates. Endotracheal tube in satisfactory position. Nasogastric tube unchanged Chest X-Ray 06/03/18 09:46 IMPRESSION: Bilateral infiltrates unchanged. Endotracheal and nasogastric tubes unchanged. Chest X-Ray 06/04/18 09:32 IMPRESSION: Improved upper lobe infiltrates. Persistent perihilar infiltrates. Fingerstick Blood Sugar Results: 150 Critical Care Progress Note - Nutrition Nutrition: Nutrition Category Date Time Status NPO Diet [DIET] Diets 06/01/18 Lunch Ordered Assessment/Plan - Assessment and Plan (Free Text) Assessment: 67 year old with past medical history of type II diabetes mellitus, HTN, HLD, CAD, atrial fibrillation on coumadin, abdominal hernia, CVA who presents intubated for hypoxic respiratory failure 2/2 cardiogenic vs non cardiogenic pulmonary edema. POD #2 for incarcerated ventral hernia surgery with small bowel resection and jejunocecal anastamosis for necrotic bowel. Placed back on high flow oxygen, may consider bipap if O2 sat does not improve. Plan: Acute hypoxic respiratory failure 2/2 cardiogenic vs. noncardiogenic pulmonary edema -CXR today shows improved upper lobe infiltrates, persistent perihilar infiltrates -extubated 06/03/18 patient placed on high flow oxygen, AO x3 -ABG 06/03/18 shows pH/CO2/O2 7.35/32/330 and bicarb of 19 while on FiO2 f 10%, intubated. Now extubated -given 40mg lasix today, good urine output overnight -Maintain O2 saturation>90% -possible bipap if O2 sat do not improve > 92% Small bowel obstruction 2/2 to incarcerated ventral hernia -POD #2 status post colectomy with jejunocecal anastamosis for necrotic bowel -Abdominal CT: showed incarcerated bowel in left lower quadrant of abdomen. -Continue with flagyl and azactam -pain control with dilaudid Diet -NPO, will advance as per surgery recommendations -GI ppx with Protonix 40 mg daily GILBERTO -BUN/Cr is 79/3.6, stable from yesterday -will stop lasix and fluids and assess patient volume status -Good urine output overnight, 750cc overnight -Replete electrolytes as needed. -Maintain euvolemia Anemia -Hg is 8.6 from 9.6 yesterday -s/p 2 units PRBC on 06/03/18 Osteomyelitis of left 2nd Toe -Continue with antibiotics as per ID, zyvox -Continue with oxychlorosene as per podiatry -right foot wound cx positive for corynebacterium -possible OR by podiatry later this week Atrial fibrillation -currently rate controlled -Echocardiogram: 74%, biatrial enlargement -Troponin: <0.01, 0.02 on 05/28. -Maintain MAP>65. -currently normotensive, will resume oral HTN medications when patient tolerates PO PPX with protonix and SCD Patient seen and examined with Dr. Carlos <Anselmo Carlos - Last Filed: 06/04/18 11:15> CCU Objective - Vital Signs / Intake & Output Vital Signs (Last 4 hours): Vital Signs Pulse Resp BP 06/04/18 09:49 92 H 159/63 H 06/04/18 09:43 22 06/04/18 09:25 159/63 H Intake and Output (Last 8hrs): Intake & Output 06/03/18 06/04/18 06/04/18 22:59 06:59 14:59 Intake Total 500 700 Output Total 920 300 Balance -420 400 Intake: IV 500 700 Right Forearm 500 700 Output: Drainage 195 100 Left 45 25 Right 150 75 Urine 725 200 Urethral (Kelley) 725 200 - Medications Active Medications: Active Medications Generic Name Dose Route Start Last Admin Trade Name Freq PRN Reason Stop Dose Admin Acetaminophen 650 mg 05/21/18 20:42 05/30/18 01:30 Tylenol 325mg Tab PO 650 mg Q6H PRN Administration Fever >100.4 F Albuterol/Ipratropium 3 ml 06/02/18 18:21 Duoneb 3 Mg/0.5 Mg (3 Ml) Ud IH Q2H PRN Shortness of Breath Amlodipine Besylate 10 mg 05/22/18 10:00 06/02/18 09:34 Norvasc PO Not Given DAILY [facility] Aspirin 81 mg 05/28/18 10:00 06/03/18 10:46 Aspirin Chewable PO 81 mg DAILY [facility] Administration Atorvastatin Calcium 40 mg 05/23/18 10:00 06/02/18 09:33 Lipitor PO Not Given QOTHERDAY [facility] Clonidine HCl 0.3 mg 05/22/18 10:00 06/03/18 10:50 Catapres PO Not Given TID [facility] Dextrose 50 ml 05/23/18 16:44 Dextrose 50% Inj IVP ONCE PRN Hypoglycemia Heparin Sodium (Porcine) 5,000 units 06/02/18 22:00 06/04/18 05:25 Heparin SC 5,000 units Q8 [facility] Administration Protocol Hydralazine HCl 10 mg 05/31/18 06:15 06/04/18 01:05 Apresoline IV 10 mg Q6H PRN Administration Systolic Blood Pressure Hydralazine HCl 25 mg 05/31/18 06:15 06/02/18 05:37 Apresoline PO Not Given Q6H [facility] Hydromorphone HCl 0.5 mg 06/03/18 11:47 06/04/18 09:26 Dilaudid IVP 0.5 mg Q4H PRN Administration Pain, moderate (4-7) Heparin Sodium/Sodium Chloride 25,000 units in 250 mls @ 16.248 mls/hr 05/30/18 03:19 05/31/18 10:20 Heparin 61511 Units/250ml 1/2 Normal Saline IV 0 units/kg/hr .[id number] PRN 0 mls/hr ADJUST RATE PER PROTOCOL Titration Protocol 18 UNITS/KG/HR Metronidazole 500 mg in 100 mls @ 100 mls/hr 06/01/18 14:00 06/04/18 05:24 Flagyl IVPB 100 mls/hr Q8 [facility] Administration Protocol Linezolid 600 mg in 300 mls @ 200 mls/hr 06/01/18 13:30 06/04/18 09:27 Zyvox 600mg/300ml D5w IVPB 06/08/18 13:31 200 mls/hr Q12 [facility] Administration Protocol Aztreonam 100 mls @ 100 mls/hr 06/02/18 22:00 06/04/18 09:26 Azactam 1 Gm IVPB 06/09/18 22:01 100 mls/hr Q12 [facility] Administration Protocol Insulin Human Lispro 0 units 05/21/18 22:00 06/04/18 09:04 Humalog High SC Not Given ACHS [facility] Protocol Insulin Lispro Protam/Lispro Human 10 units 05/25/18 16:30 06/04/18 09:08 Humalog Mix 75/25 SC Not Given ACBD [facility] Isosorbide Mononitrate 30 mg 05/22/18 06:00 06/03/18 05:08 Imdur Er PO Not Given 0600 [facility] Labetalol HCl 200 mg 05/30/18 06:54 06/02/18 09:34 Trandate PO Not Given BID [facility] Levalbuterol HCl 1.25 mg 05/26/18 14:00 06/04/18 07:16 Xopenex IH 1.25 mg [id number] [facility] Administration Meclizine HCl 25 mg 05/21/18 20:02 05/30/18 11:26 Antivert PO 25 mg TID PRN Administration dizzy Metoprolol Tartrate 50 mg 05/28/18 13:30 05/30/18 01:30 Lopressor PO 50 mg Q12H [facility] Administration Metoprolol Tartrate 5 mg 06/02/18 10:45 06/04/18 09:49 Lopressor IVP 5 mg Q6H [facility] Administration Nitroglycerin 1 ea 05/27/18 10:45 06/04/18 09:49 Nitro-Bid 2% Oint TOP 1 ea Q8H [facility] Administration Ondansetron HCl 4 mg 06/01/18 10:58 Zofran Inj IVP Q6H PRN Nausea/Vomiting Oxychlorosene Sodium 2 gm 06/02/18 10:00 06/03/18 10:45 Clorpactin Wcs-90 TOP 2 gm DAILY [facility] Administration Pantoprazole Sodium 40 mg 06/01/18 13:30 06/03/18 10:45 Protonix Inj IVP 40 mg DAILY [facility] Administration Silver Sulfadiazine 0 gm 05/22/18 18:00 06/03/18 10:49 Silvadene 1% 25 Gm TP 25 gm BID [facility] Administration Simethicone 80 mg 05/30/18 04:02 05/31/18 09:48 Mylicon Chew Tab PO 80 mg PCHS PRN Administration GI distress - Patient Studies Lab Studies: Microbiology Studies 06/01/18 14:00 Gram Stain - Final Foot - Right Wound Culture - Final Corynebacterium Species Lab Studies 06/04/18 06/04/18 06/04/18 Range/Units 07:17 06:10 06:10 WBC 21.3 H (4.5-11.0) 10^3/uL RBC 3.29 L (3.5-6.1) 10^6/uL Hgb 8.6 L (12.0-16.0) g/dL Hct 26.9 L (36.0-48.0) % MCV 81.8 (80.0-105.0) fl MCH 26.1 (25.0-35.0) pg MCHC 32.0 (31.0-37.0) g/dl RDW 17.0 H (11.5-14.5) % Plt Count 227 (120.0-450.0) 10^3/uL MPV 9.0 (7.0-11.0) fl Neut % (Auto) 87.1 H (50.0-68.0) % Lymph % (Auto) 4.4 L (22.0-35.0) % [place] % (Auto) 6.9 H (1.0-6.0) % Eos % (Auto) 1.5 (1.5-5.0) % Baso % (Auto) 0.1 (0.0-3.0) % Lymph # (Auto) 0.9 L (1.2-3.4) [place] # (Auto) 1.5 H (0.1-0.6) Eos # (Auto) 0.3 (0.0-0.7) Baso # (Auto) 0.03 (0.0-2.0) K/mm3 Absolute Neuts (auto) 18.55 H (1.4-6.5) Sodium 139 (132-148) mmol/L Potassium 4.4 (3.6-5.0) mmol/L Chloride 112 H (98-107) mmol/L Carbon Dioxide 20 L (21-33) mmol/L Anion Gap 12 (10-20) BUN 79 H (7-21) mg/dL Creatinine 3.6 H (0.7-1.2) mg/dl Est GFR ( Amer) 15 Est GFR (Non-Af Amer) 13 POC Glucose (mg/dL) 150 H (65-110) mg/dL Random Glucose 135 H (70-110) mg/dL Calcium 7.4 L (8.4-10.5) mg/dL Blood Type Antibody Screen Crossmatch BBK History Checked 06/03/18 06/03/18 06/03/18 Range/Units 21:31 17:42 16:01 WBC 21.3 H (4.5-11.0) 10^3/uL RBC 3.65 (3.5-6.1) 10^6/uL Hgb 9.6 L D (12.0-16.0) g/dL Hct 29.9 L (36.0-48.0) % MCV 81.9 (80.0-105.0) fl MCH 26.3 (25.0-35.0) pg MCHC 32.1 (31.0-37.0) g/dl RDW 16.5 H (11.5-14.5) % Plt Count 210 (120.0-450.0) 10^3/uL MPV 9.1 (7.0-11.0) fl Neut % (Auto) (50.0-68.0) % Lymph % (Auto) (22.0-35.0) % [place] % (Auto) (1.0-6.0) % Eos % (Auto) (1.5-5.0) % Baso % (Auto) (0.0-3.0) % Lymph # (Auto) (1.2-3.4) [place] # (Auto) (0.1-0.6) Eos # (Auto) (0.0-0.7) Baso # (Auto) (0.0-2.0) K/mm3 Absolute Neuts (auto) (1.4-6.5) Sodium (132-148) mmol/L Potassium (3.6-5.0) mmol/L Chloride (98-107) mmol/L Carbon Dioxide (21-33) mmol/L Anion Gap (10-20) BUN (7-21) mg/dL Creatinine (0.7-1.2) mg/dl Est GFR ( Amer) Est GFR (Non-Af Amer) POC Glucose (mg/dL) 183 H 229 H (65-110) mg/dL Random Glucose (70-110) mg/dL Calcium (8.4-10.5) mg/dL Blood Type Antibody Screen Crossmatch BBK History Checked 06/03/18 06/01/18 Range/Units 11:17 16:30 WBC (4.5-11.0) 10^3/uL RBC (3.5-6.1) 10^6/uL Hgb (12.0-16.0) g/dL Hct (36.0-48.0) % MCV (80.0-105.0) fl MCH (25.0-35.0) pg MCHC (31.0-37.0) g/dl RDW (11.5-14.5) % Plt Count (120.0-450.0) 10^3/uL MPV (7.0-11.0) fl Neut % (Auto) (50.0-68.0) % Lymph % (Auto) (22.0-35.0) % [place] % (Auto) (1.0-6.0) % Eos % (Auto) (1.5-5.0) % Baso % (Auto) (0.0-3.0) % Lymph # (Auto) (1.2-3.4) [place] # (Auto) (0.1-0.6) Eos # (Auto) (0.0-0.7) Baso # (Auto) (0.0-2.0) K/mm3 Absolute Neuts (auto) (1.4-6.5) Sodium (132-148) mmol/L Potassium (3.6-5.0) mmol/L Chloride (98-107) mmol/L Carbon Dioxide (21-33) mmol/L Anion Gap (10-20) BUN (7-21) mg/dL Creatinine (0.7-1.2) mg/dl Est GFR ( Amer) Est GFR (Non-Af Amer) POC Glucose (mg/dL) 210 H (65-110) mg/dL Random Glucose (70-110) mg/dL Calcium (8.4-10.5) mg/dL Blood Type B POSITIVE Antibody Screen Negative Crossmatch See Detail BBK History Checked Patient has bt Laboratory Results - last 24 hr 06/01/18 06/03/18 06/03/18 16:30 11:17 16:01 WBC RBC Hgb Hct MCV MCH MCHC RDW Plt Count MPV Neut % (Auto) Lymph % (Auto) [place] % (Auto) Eos % (Auto) Baso % (Auto) Lymph # (Auto) [place] # (Auto) Eos # (Auto) Baso # (Auto) Absolute Neuts (auto) Sodium Potassium Chloride Carbon Dioxide Anion Gap BUN Creatinine Est GFR ( Amer) Est GFR (Non-Af Amer) POC Glucose (mg/dL) 210 H 229 H Random Glucose Calcium Blood Type B POSITIVE Antibody Screen Negative Crossmatch See Detail BBK History Checked Patient has bt 06/03/18 06/03/18 06/04/18 17:42 21:31 06:10 WBC 21.3 H RBC 3.65 Hgb 9.6 L D Hct 29.9 L MCV 81.9 MCH 26.3 MCHC 32.1 RDW 16.5 H Plt Count 210 MPV 9.1 Neut % (Auto) Lymph % (Auto) [place] % (Auto) Eos % (Auto) Baso % (Auto) Lymph # (Auto) [place] # (Auto) Eos # (Auto) Baso # (Auto) Absolute Neuts (auto) Sodium 139 Potassium 4.4 Chloride 112 H Carbon Dioxide 20 L Anion Gap 12 BUN 79 H Creatinine 3.6 H Est GFR ( Amer) 15 Est GFR (Non-Af Amer) 13 POC Glucose (mg/dL) 183 H Random Glucose 135 H Calcium 7.4 L Blood Type Antibody Screen Crossmatch BBK History Checked 06/04/18 06/04/18 06:10 07:17 WBC 21.3 H RBC 3.29 L Hgb 8.6 L Hct 26.9 L MCV 81.8 MCH 26.1 MCHC 32.0 RDW 17.0 H Plt Count 227 MPV 9.0 Neut % (Auto) 87.1 H Lymph % (Auto) 4.4 L [place] % (Auto) 6.9 H Eos % (Auto) 1.5 Baso % (Auto) 0.1 Lymph # (Auto) 0.9 L [place] # (Auto) 1.5 H Eos # (Auto) 0.3 Baso # (Auto) 0.03 Absolute Neuts (auto) 18.55 H Sodium Potassium Chloride Carbon Dioxide Anion Gap BUN Creatinine Est GFR ( Amer) Est GFR (Non-Af Amer) POC Glucose (mg/dL) 150 H Random Glucose Calcium Blood Type Antibody Screen Crossmatch BBK History Checked Radiology Impressions: Radiology Impressions Chest X-Ray 06/04/18 09:32 IMPRESSION: Improved upper lobe infiltrates. Persistent perihilar infiltrates. Critical Care Progress Note - Nutrition Nutrition: Nutrition Category Date Time Status NPO Diet [DIET] Diets 06/01/18 Lunch Ordered Attending/Attestation - Attestation I have personally seen and examined this patient.: Yes I have fully participated in the care of the patient.: Yes I have reviewed all pertinent clinical information: Yes Notes (Text): 06/04/18 11:13 The patient was seen and examined at the bedside. Patient care was discussed with resident Medical records, lab studies were reviewed and management issues were discussed and formulated. Agree with above treatment plans as outlined in 's note with addition of the following: Acute Respiratory Failure \ Hypoxemia \ Ischemic bowel \ GILBERTO \ CHF \ PVD \ DM 2 \ HTN \ OM \ Left toe gangrene \ SBO \ Anemia -hemodynamic monitoring to maintain MAP>65 -continue o2 supplementation to maintain Spo2 >90 Pao2>60; on NRB overnight -transition to High FLow Humidified NC in AM -CXR reviewed -continue nebs and pulmonary toileting -continue Abx; ID team f\u; f\u cultures -f\u Bun\Cr and U\o; monitor and replace e-lites; diuresis with lasix -renal team f\u -NPO diet and aspiration precautions -surgical team post-op f\u -DVT \ PUD prophylaxis CCM time 34min
--- NOTE | 2018-06-04 10:57 | PN ---
DATE: 06/04/2018 SUBJECTIVE: The patient says she is feeling better. She denies any chest pain. No shortness of breath. PHYSICAL EXAMINATION: VITAL SIGNS: Temperature is 98.4, pulse 88, blood pressure 146/56 and respiration is 24. GENERAL: The patient is lying in bed, flat, comfortable. HEENT: No oral lesion. Anicteric sclerae. Moist mucosa. NECK: No JVD, adenopathy, or thyromegaly. CARDIOVASCULAR: S1 and S2, regular. No murmurs, rubs, or gallops. LUNGS: Clear to auscultation bilaterally. No wheeze, rales, or rhonchi. ABDOMEN: Bowel sounds are positive, soft, nontender and nondistended. EXTREMITIES: There is 1+ edema in the arms. . LABORATORY DATA: White count is 21.3 and hemoglobin 8.6. Creatinine is 3.6. ASSESSMENT: 1. Acute kidney injury with chronic kidney disease stage 3. 2. Status post resection of small bowel secondary to ventral hernia. 3. Peripheral arterial disease. 4. Diabetes type II. 5. Contrast nephropathy. 6. PENICILLIN ALLERGY. 7. Left second toe gangrene with osteomyelitis. PLAN: The patient is currently on meclizine. The patient is on aztreonam for antibiotics because of the PENICILLIN ALLERGY. She is on Catapres for her hypertension. The patient's blood pressure is better. The patient is on Dilaudid for pain. She is on Flagyl. The patient is on heparin for DVT prophylaxis. The patient is on Lopressor, this is being continued. She is on Protonix daily. She is on labetalol, but is on hold as she is not able to take orally. She is on linezolid. The patient's creatinine is stable. I am hoping that she starts to improve. She does have contrast nephropathy. She is volume overloaded, so I do not think that she requires any further IV fluids. Prognosis remains guarded. Kailash Watkins MD
--- NOTE | 2018-06-04 11:58 | PN ---
DATE: 06/04/2018 SUBJECTIVE: A 67-year-old female who was seen at bedside for continued evaluation and management of gangrenous left second digit with underlying abscess formation. She is status post small bowel resection and is no longer intubated. She is able to answer questions at this time. OBJECTIVE: VITAL SIGNS: Revealed temperature of 98.4, pulse rate of 88, blood pressure of 146/56 and respiratory rate of 36. LABORATORY FINDINGS: Reveal white count of 21.3 which is the same as yesterday. Hematocrit is 8.6, hemoglobin of 26.9, platelet count is 227. Nonpalpable pedal pulses noted bilaterally. Capillary filling time is delayed x10 an absent x9 and absent on the left second digit. The entire left foot presents with decreasing edema and erythema. There is noted to be cherelle gangrene of the left second digit with an open wound at the plantar aspect of the left second metatarsophalangeal joint. There is noted to be serous drainage emanating from the wound, but no purulence. However, there is still quite a bit of malodor present. Clinically, the underlying abscess formations appears to be draining and has improved considerably since the incision and drainage performed at bedside. ASSESSMENT: A 67-year-old insulin-dependent diabetic female with left second digit gangrene and underlying abscess formation of the left second metatarsophalangeal joint. PLAN: The patient was seen and evaluated. The dressing was changed and the wound was cleansed flushed with normal sterile saline. Sterile iodoform packing was placed into the incision site with a dry sterile dressing and Betadine application. The patient needs left second digit amputation. However, she needs to be stabilized prior to any additional intervention. She will be tentatively scheduled for Friday afternoon, left second digit amputation with incision and drainage of underlying abscess formation, pending medical and cardiac clearance. We will continue with aggressive local wound care daily and will wait appropriate clearances. We will hold heparin Friday. Gil Kim DPM
--- NOTE | 2018-06-04 12:55 | CP.PCM.PN ---
Subjective - Date & Time of Evaluation Date of Evaluation: 06/04/18 Time of Evaluation: 09:45 - Subjective Subjective: Still feels weak and tired, no fevers, feels the left foot dressings are slightly tight, not in distress, still with some abdominal discomfort. Objective - Vital Signs/Intake and Output Vital Signs (last 24 hours): Temp Pulse Resp BP Pulse Ox 98.4 F 92 H 22 159/63 H 91 L 06/04/18 06:01 06/04/18 09:49 06/04/18 09:43 06/04/18 09:49 06/04/18 06:01 Intake and Output: 06/04/18 06/04/18 06:59 18:59 Intake Total 1200 Output Total 1220 Balance -20 - Medications Medications: Current Medications Acetaminophen (Tylenol 325mg Tab) 650 mg PO Q6H PRN PRN Reason: Fever >100.4 F Last Admin: 05/30/18 01:30 Dose: 650 mg Albuterol/Ipratropium (Duoneb 3 Mg/0.5 Mg (3 Ml) Ud) 3 ml IH Q2H PRN PRN Reason: Shortness of Breath Amlodipine Besylate (Norvasc) 10 mg PO DAILY [facility] Last Admin: 06/02/18 09:34 Dose: Not Given Aspirin (Aspirin Chewable) 81 mg PO DAILY [facility] Last Admin: 06/03/18 10:46 Dose: 81 mg Atorvastatin Calcium (Lipitor) 40 mg PO QOTHERDAY [facility] Last Admin: 06/02/18 09:33 Dose: Not Given Clonidine HCl (Catapres) 0.3 mg PO TID [facility] Last Admin: 06/03/18 10:50 Dose: Not Given Dextrose (Dextrose 50% Inj) 50 ml IVP ONCE PRN PRN Reason: Hypoglycemia Heparin Sodium (Porcine) (Heparin) 5,000 units SC Q8 [facility]; Protocol Last Admin: 06/04/18 05:25 Dose: 5,000 units Hydralazine HCl (Apresoline) 10 mg IV Q6H PRN PRN Reason: Systolic Blood Pressure Last Admin: 06/04/18 01:05 Dose: 10 mg Hydralazine HCl (Apresoline) 25 mg PO Q6H [facility] Last Admin: 06/02/18 05:37 Dose: Not Given Hydromorphone HCl (Dilaudid) 0.5 mg IVP Q4H PRN PRN Reason: Pain, moderate (4-7) Last Admin: 06/04/18 09:26 Dose: 0.5 mg Heparin Sodium/Sodium Chloride (Heparin 10398 Units/250ml 1/2 Normal Saline) 25,000 units in 250 mls @ 16.248 mls/hr IV .[id number] PRN; Protocol PRN Reason: ADJUST RATE PER PROTOCOL Last Titration: 05/31/18 10:20 Dose: 0 units/kg/hr, 0 mls/hr Metronidazole (Flagyl) 500 mg in 100 mls @ 100 mls/hr IVPB Q8 [facility]; Protocol Last Admin: 06/04/18 05:24 Dose: 100 mls/hr Linezolid (Zyvox 600mg/300ml D5w) 600 mg in 300 mls @ 200 mls/hr IVPB Q12 [facility]; Protocol Stop: 06/08/18 13:31 Last Admin: 06/04/18 09:27 Dose: 200 mls/hr Aztreonam (Azactam 1 Gm) 100 mls @ 100 mls/hr IVPB Q12 [facility]; Protocol Stop: 06/09/18 22:01 Last Admin: 06/04/18 09:26 Dose: 100 mls/hr Insulin Human Lispro (Humalog High) 0 units SC ACHS [facility]; Protocol Last Admin: 06/04/18 09:04 Dose: Not Given Insulin Lispro Protam/Lispro Human (Humalog Mix 75/25) 10 units SC ACBD [facility] Last Admin: 06/04/18 09:08 Dose: Not Given Isosorbide Mononitrate (Imdur Er) 30 mg PO 0600 [facility] Last Admin: 06/03/18 05:08 Dose: Not Given Labetalol HCl (Trandate) 200 mg PO BID [facility] Last Admin: 06/02/18 09:34 Dose: Not Given Levalbuterol HCl (Xopenex) 1.25 mg IH A3RONOP [facility] Last Admin: 06/04/18 07:16 Dose: 1.25 mg Meclizine HCl (Antivert) 25 mg PO TID PRN PRN Reason: dizzy Last Admin: 05/30/18 11:26 Dose: 25 mg Metoprolol Tartrate (Lopressor) 50 mg PO Q12H [facility] Last Admin: 05/30/18 01:30 Dose: 50 mg Metoprolol Tartrate (Lopressor) 5 mg IVP Q6H [facility] Last Admin: 06/04/18 09:49 Dose: 5 mg Nitroglycerin (Nitro-Bid 2% Oint) 1 ea TOP Q8H [facility] Last Admin: 06/04/18 09:49 Dose: 1 ea Ondansetron HCl (Zofran Inj) 4 mg IVP Q6H PRN PRN Reason: Nausea/Vomiting Oxychlorosene Sodium (Clorpactin Wcs-90) 2 gm TOP DAILY [facility] Last Admin: 06/03/18 10:45 Dose: 2 gm Pantoprazole Sodium (Protonix Inj) 40 mg IVP DAILY [facility] Last Admin: 06/03/18 10:45 Dose: 40 mg Silver Sulfadiazine (Silvadene 1% 25 Gm) 0 gm TP BID [facility] Last Admin: 06/03/18 10:49 Dose: 25 gm Simethicone (Mylicon Chew Tab) 80 mg PO HS PRN PRN Reason: GI distress Last Admin: 05/31/18 09:48 Dose: 80 mg - Labs Labs: 06/04/18 06:10 06/04/18 06:10 PT 23.6 SECONDS (9.4-12.5) H 06/02/18 10:05 INR 2.09 06/02/18 10:05 APTT 34.5 Seconds (26.9-38.3) 06/02/18 10:05 - Constitutional Appears: Chronically Ill - Head Exam Head Exam: NORMAL INSPECTION - Neck Exam Neck Exam: absent: Meningismus - Respiratory Exam Respiratory Exam: Decreased Breath Sounds - Cardiovascular Exam Cardiovascular Exam: +S1, +S2 - GI/Abdominal Exam GI & Abdominal Exam: Soft. absent: Tenderness Additional comments: dressings and abdominal drain in place - Extremities Exam Additional comments: left foot with dry dressings in place Assessment and Plan - Assessment and Plan (Free Text) Plan: Assessment sepsis due to left 2nd toe gangrene with distal phalanx osteomyelitis and now with purulent skin and skin structure infection S/P bedside I and 06/01/2018, in this patient with probable peripheral vascular disease, went for angioplasty 05/27/2018, as well as incarcerated abdominal hernia S/P ex-lap jejunocecal anastomosis, small bowel resection, appendectomy, POD #2 history of right leg skin and skin structure infection - patient has had a history of infection in the same leg with fasciotomy, I and D and debridement in September 2014 HTN DM history of left knee surgery history of shoulder surgery Atrial fibrillation history of CVA Plan discussed with Podiatry Dr. Kim - bedside I and D 2 days ago - the cultures only yielded Corynebacterium which are contaminants continue Zyvox and Azactam and Flagyl and will continue to monitor clinically, trend WBC count patient continue to be critically-ill
[2018-06-04] MEDS: Oxychlorosene Topical 2 gm Packet TOP SCH (13:54)
--- NOTE | 2018-06-04 14:53 | PN ---
DATE: 06/04/2018 SUBJECTIVE: The patient is lying in bed in intensive care. She is awake, alert, extubated. She is verbalizing coherently. PHYSICAL EXAMINATION: VITAL SIGNS: Temperature of 98.4, blood pressure 159/63, heart rate of 92. HEENT: Sclerae to be white. Conjunctivae pale. NECK: Supple. CHEST: Distant breath sounds. HEART: Regular rate and rhythm. ABDOMEN: Obese, soft. Her incision in the lower abdomen is clean. She has two Alejandro drains in the right and left lower quadrant draining serous fluid. EXTREMITIES: Trace pedal edema. Her left leg is in a dressing. LABORATORY DATA: Hemoglobin 8.6, white blood cell count 21.3, platelet count 227,000, BUN 79, creatinine 3.6, chloride 112, bicarb of 20. Cultures from her infected left toe is positive for Corynebacterium. IMPRESSION: 1. Small bowel obstruction secondary to incarcerated ventral hernia with strangulation of the loop of distal small bowel, status post small bowel resection and primary anastomosis. 2. Acute on chronic renal failure. 3. Anemia. 4. Infected left toe. RECOMMENDATIONS: 1. Continue postop care. If the patient continues to improve, hopefully she can have surgery on her left second digit sometime next week. 2. Follow serial hematocrits. 3. Follow urine output and serial BUN and creatinine. Norm Gaxiola MD
--- NOTE | 2018-06-04 14:57 | PN ---
DATE: 06/04/2018 SUBJECTIVE: The patient is 67 years old, seen and examined, sitting in chair, out of bed, was extubated on high-flow oxygen. Nasogastric tube is going to be removed as per surgical team input. PHYSICAL EXAMINATION VITAL SIGNS: She is afebrile, pulse 92, respirations 22, blood pressure 159/63. LUNGS: Bilateral fair airflow. No rhonchi or crackles. HEART: S1 and S2 audible. ABDOMEN: Soft, obese, palpable discomfort. Bowel sounds are positive. NEUROLOGIC: She is awake and alert, able to communicate. LABORATORY DATA: WBC is 21.3, hemoglobin 8.6, hematocrit 26.9, and platelets 227. PT 23.6, INR 2.09. Chemistry: Sodium 139, potassium 4.4, chloride 112, CO2 of 20, BUN 79, creatinine 3.6, blood sugar of 136. Foot culture growing Corynebacterium species. ASSESSMENT 1. Status post partial small-bowel obstruction. 2. Ventral hernia. 3. Left foot gangrene, status post incision and drainage. 4. Hypertension. 5. Insulin-dependent diabetes. 6. Peripheral vascular disease. 7. Anemia. PLAN: Currently, the patient is on meclizine. She is on hydralazine. She is on Azactam. She is getting analgesics. She is on metronidazole. We will monitor her blood sugar. Continue left foot local wound care. She is on Zyvox. Jason Laws MD
--- NOTE | 2018-06-04 15:01 | PN ---
DATE: 06/04/2018 SUBJECTIVE: The patient is seen lying in bed in the CCU. She continues to have NG tube in place. She complains of a very dry mouth. Her current medications include aspirin, Azactam, Dilaudid, DuoNeb inhaler, Flagyl, subcutaneous heparin, insulin, IV metoprolol, Nitro-Dur, Protonix, and Xopenex. OBJECTIVE: GENERAL: She is a middle-aged woman, who appears uncomfortable due to her NG tube. VITAL SIGNS: Her blood pressure is 146/56 with pulse of 90 in atrial fibrillation, respirations are 16 and she is afebrile. HEENT: No JVD. CHEST: Few scattered rhonchi. HEART: PMI displaced laterally with systolic murmur at left sternal border. ABDOMEN: Soft and obese. Surgical wound appears stable. Bowel sounds are absent. EXTREMITIES: Left foot is dressed. 1+ edema is noted in both lower extremities. DIAGNOSTIC DATA: Potassium 4.4, BUN and creatinine 79 and 3.6. White count 21.3, hemoglobin and hematocrit 8.6 and 26.9 with platelet count of 227,000. Chest x-ray reveals increased cardiac silhouette with bilateral congestive changes. IMPRESSION: 1. Recent surgical repair of incarcerated incisional hernia, clinically stable. 2. Coronary artery disease status post remote percutaneous coronary intervention stable at present. 3. Contrast nephropathy 4. Peripheral vascular disease with gangrenous left second toe, awaits amputation. 5. Postoperative anemia. 6. Hypertension. RECOMMENDATIONS: Her current medications will continue for now. When she is able to take oral administration, her oral beta-ary and antihypertensive therapies will be resumed. Anticoagulation should continue with at least subcutaneous heparin, given her chronic atrial fibrillation. We will continue to follow and make further recommendations as appropriate. Mauro Dowell MD MTDD
--- NOTE | 2018-06-04 15:20 | CP.PCM.PN ---
Subjective - Date & Time of Evaluation Date of Evaluation: 06/04/18 Time of Evaluation: 08:20 - Subjective Subjective: Surgery progress note, Dr Morrell Patient seen and examined at bedside. On non rebreather mask, in NAD. No acute events overnight and pain controlled with meds. Denied BM, flatus. No fever, SOB, CP, palpitations Objective - Vital Signs/Intake and Output Vital Signs (last 24 hours): Temp Pulse Resp BP Pulse Ox 98.4 F 92 H 20 159/63 H 91 L 06/04/18 06:01 06/04/18 09:49 06/04/18 13:27 06/04/18 09:49 06/04/18 06:01 Intake and Output: 06/04/18 06/04/18 06:59 18:59 Intake Total 1200 Output Total 1220 Balance -20 - Medications Medications: Current Medications Acetaminophen (Tylenol 325mg Tab) 650 mg PO Q6H PRN PRN Reason: Fever >100.4 F Last Admin: 05/30/18 01:30 Dose: 650 mg Albuterol/Ipratropium (Duoneb 3 Mg/0.5 Mg (3 Ml) Ud) 3 ml IH Q2H PRN PRN Reason: Shortness of Breath Amlodipine Besylate (Norvasc) 10 mg PO DAILY [facility] Last Admin: 06/02/18 09:34 Dose: Not Given Aspirin (Aspirin Chewable) 81 mg PO DAILY [facility] Last Admin: 06/04/18 13:54 Dose: Not Given Atorvastatin Calcium (Lipitor) 40 mg PO QOTHERDAY [facility] Last Admin: 06/04/18 13:54 Dose: Not Given Clonidine HCl (Catapres) 0.3 mg PO TID [facility] Last Admin: 06/03/18 10:50 Dose: Not Given Dextrose (Dextrose 50% Inj) 50 ml IVP ONCE PRN PRN Reason: Hypoglycemia Heparin Sodium (Porcine) (Heparin) 5,000 units SC Q8 [facility]; Protocol Last Admin: 06/04/18 14:01 Dose: 5,000 units Hydralazine HCl (Apresoline) 10 mg IV Q6H PRN PRN Reason: Systolic Blood Pressure Last Admin: 06/04/18 01:05 Dose: 10 mg Hydralazine HCl (Apresoline) 25 mg PO Q6H [facility] Last Admin: 06/02/18 05:37 Dose: Not Given Hydromorphone HCl (Dilaudid) 0.5 mg IVP Q4H PRN PRN Reason: Pain, moderate (4-7) Last Admin: 06/04/18 13:58 Dose: 0.5 mg Heparin Sodium/Sodium Chloride (Heparin 65257 Units/250ml 1/2 Normal Saline) 25,000 units in 250 mls @ 16.248 mls/hr IV .[id number] PRN; Protocol PRN Reason: ADJUST RATE PER PROTOCOL Last Titration: 05/31/18 10:20 Dose: 0 units/kg/hr, 0 mls/hr Metronidazole (Flagyl) 500 mg in 100 mls @ 100 mls/hr IVPB Q8 [facility]; Protocol Last Admin: 06/04/18 13:59 Dose: 100 mls/hr Linezolid (Zyvox 600mg/300ml D5w) 600 mg in 300 mls @ 200 mls/hr IVPB Q12 [facility]; Protocol Stop: 06/08/18 13:31 Last Admin: 06/04/18 09:27 Dose: 200 mls/hr Aztreonam (Azactam 1 Gm) 100 mls @ 100 mls/hr IVPB Q12 [facility]; Protocol Stop: 06/09/18 22:01 Last Admin: 06/04/18 09:26 Dose: 100 mls/hr Insulin Human Lispro (Humalog High) 0 units SC ACHS [facility]; Protocol Last Admin: 06/04/18 13:55 Dose: Not Given Insulin Lispro Protam/Lispro Human (Humalog Mix 75/25) 10 units SC ACBD [facility] Last Admin: 06/04/18 09:08 Dose: Not Given Isosorbide Mononitrate (Imdur Er) 30 mg PO 0600 [facility] Last Admin: 06/03/18 05:08 Dose: Not Given Labetalol HCl (Trandate) 200 mg PO BID [facility] Last Admin: 06/02/18 09:34 Dose: Not Given Levalbuterol HCl (Xopenex) 1.25 mg IH [id number] [facility] Last Admin: 06/04/18 13:25 Dose: 1.25 mg Meclizine HCl (Antivert) 25 mg PO TID PRN PRN Reason: dizzy Last Admin: 05/30/18 11:26 Dose: 25 mg Metoprolol Tartrate (Lopressor) 50 mg PO Q12H [facility] Last Admin: 05/30/18 01:30 Dose: 50 mg Metoprolol Tartrate (Lopressor) 5 mg IVP Q6H [facility] Last Admin: 06/04/18 09:49 Dose: 5 mg Nitroglycerin (Nitro-Bid 2% Oint) 1 ea TOP Q8H [facility] Last Admin: 06/04/18 09:49 Dose: 1 ea Ondansetron HCl (Zofran Inj) 4 mg IVP Q6H PRN PRN Reason: Nausea/Vomiting Oxychlorosene Sodium (Clorpactin Wcs-90) 2 gm TOP DAILY [facility] Last Admin: 06/04/18 13:54 Dose: Not Given Pantoprazole Sodium (Protonix Inj) 40 mg IVP DAILY [facility] Last Admin: 06/04/18 13:59 Dose: 40 mg Simethicone (Mylicon Chew Tab) 80 mg PO [facility] PRN PRN Reason: GI distress Last Admin: 05/31/18 09:48 Dose: 80 mg - Labs Labs: 06/04/18 06:10 06/04/18 06:10 PT 23.6 SECONDS (9.4-12.5) H 06/02/18 10:05 INR 2.09 06/02/18 10:05 APTT 34.5 Seconds (26.9-38.3) 06/02/18 10:05 - Constitutional Appears: Well, No Acute Distress - Head Exam Head Exam: ATRAUMATIC, NORMAL INSPECTION, NORMOCEPHALIC - Eye Exam Eye Exam: EOMI, Normal appearance, PERRL Pupil Exam: NORMAL ACCOMODATION, PERRL - ENT Exam ENT Exam: Mucous Membranes Moist, Normal Exam - Neck Exam Neck Exam: Full ROM, Normal Inspection. absent: Lymphadenopathy - Respiratory Exam Respiratory Exam: Clear to Ausculation Bilateral, NORMAL BREATHING PATTERN - Cardiovascular Exam Cardiovascular Exam: REGULAR RHYTHM, +S1, +S2. absent: Murmur - GI/Abdominal Exam GI & Abdominal Exam: Soft, Tenderness (mild tender to palpate ), Diminished Bowel Sounds, Normal Bowel Sounds. absent: Hernia, Mass, Organomegaly Additional comments: infra umbilical midline incision, clean, intact, no erythema, no drainage. right (abd) and left (subq) draining joseph - Extremities Exam Extremities Exam: Full ROM, Normal Capillary Refill, Normal Inspection. absent: Joint Swelling, Pedal Edema - Neurological Exam Neurological Exam: Alert, Awake, Oriented x3 - Psychiatric Exam Psychiatric exam: Normal Affect, Normal Mood - Skin Skin Exam: Dry, Intact, Normal Color, Warm Assessment and Plan - Assessment and Plan (Free Text) Assessment: 67 y/o female s/p incarcerated ventral hernia surgery with small bowel resection and jejunocecal anastamosis for necrotic bowel. POD #2 Plan: -encourage OOB -physical therapy -pain control -monitor outputs -further recs per Dr Petros Reynolds, DO
--- NOTE | 2018-06-04 19:13 | US ---
HISTORY: Leg pain and swelling. Evaluate for DVT PHYSICIAN(S): Eric Marrufo MD. TECHNIQUE: Duplex sonography and color-flow Doppler with graded compression were used to evaluate the deep venous systems of both lower extremities. The exam is limited by body habitus and edema FINDINGS: The visualized deep venous systems of both lower extremities are sonographically normal and compressible. Normal wave forms and augmentation are seen. There is no sonographic evidence for deep venous thrombosis in the visualized segments of both lower extremities. IMPRESSION: No sonographic evidence for deep venous thrombosis in the visualized segments of both lower extremities. Limited study.
[2018-06-05] MEDS: Nitroglycerin 2% Ointment Foilpak UD TOP SCH ×4 (01:46→18:49)
[2018-06-05] MEDS: Levalbuterol 1.25 MG/3 ML Inhal Soln UD IH SCH ×4 (02:48→20:15)
[2018-06-05] MEDS: HYDROmorphone 0.5 mg/0.5 ml ISec IVP PRN ×4 (03:05→22:12)
[2018-06-05] MEDS: Metoprolol 1 mg/ml Inj IVP SCH ×5 (04:36→22:45)
[2018-06-05] MEDS: metroNIDAZOLE IV 500 mg/100 ml 500 MG/100 ML BAG IVPB SCH ×3 (06:03→21:19)
--- NOTE | 2018-06-05 06:54 | CP.PCM.PN ---
<Pierre Macielima - Last Filed: 06/05/18 15:05> Subjective - Date & Time of Evaluation Date of Evaluation: 06/05/18 Time of Evaluation: 07:15 - Subjective Subjective: [id number] Nephro progress note for Dr. Watkins Patient seen and examined at bedside. As per nursing no acute events overnight. Patient comfortable this AM and to have diet advanced. She denied any fever, chills, headache, dizziness, chest pain, cough, nausea, pain in her legs b/l. Patient is complaining of some mild diffuse abd pain. She denies flatus and has not had BM. She still requiring high flow nasal cannula. She had minimal NGT output and had 120cc serosanguinous from both the intra and extrapertioneal drains. Patient made 350cc UO overnight. Objective - Vital Signs/Intake and Output Vital Signs (last 24 hours): Temp Pulse Resp BP Pulse Ox 98.2 F 83 16 131/47 L 95 06/04/18 10:01 06/05/18 02:00 06/04/18 22:01 06/04/18 22:01 06/04/18 22:01 Intake and Output: 06/04/18 06/05/18 18:59 06:59 Intake Total 500 Output Total 295 Balance 205 - Medications Medications: Current Medications Acetaminophen (Tylenol 325mg Tab) 650 mg PO Q6H PRN PRN Reason: Fever >100.4 F Last Admin: 05/30/18 01:30 Dose: 650 mg Albuterol/Ipratropium (Duoneb 3 Mg/0.5 Mg (3 Ml) Ud) 3 ml IH Q2H PRN PRN Reason: Shortness of Breath Amlodipine Besylate (Norvasc) 10 mg PO DAILY [facility] Last Admin: 06/02/18 09:34 Dose: Not Given Aspirin (Aspirin Chewable) 81 mg PO DAILY [facility] Last Admin: 06/04/18 13:54 Dose: Not Given Atorvastatin Calcium (Lipitor) 40 mg PO QOTHERDAY [facility] Last Admin: 06/04/18 13:54 Dose: Not Given Clonidine HCl (Catapres) 0.3 mg PO TID [facility] Last Admin: 06/03/18 10:50 Dose: Not Given Dextrose (Dextrose 50% Inj) 50 ml IVP ONCE PRN PRN Reason: Hypoglycemia Furosemide (Lasix) 40 mg IVP Q12 [facility] Last Admin: 06/04/18 21:34 Dose: 40 mg Heparin Sodium (Porcine) (Heparin) 5,000 units SC Q8 [facility]; Protocol Last Admin: 06/05/18 06:03 Dose: 5,000 units Hydralazine HCl (Apresoline) 10 mg IV Q6H PRN PRN Reason: Systolic Blood Pressure Last Admin: 06/04/18 01:05 Dose: 10 mg Hydralazine HCl (Apresoline) 25 mg PO Q6H [facility] Last Admin: 06/02/18 05:37 Dose: Not Given Hydromorphone HCl (Dilaudid) 0.5 mg IVP Q4H PRN PRN Reason: Pain, moderate (4-7) Last Admin: 06/05/18 03:05 Dose: 0.5 mg Heparin Sodium/Sodium Chloride (Heparin 88306 Units/250ml 1/2 Normal Saline) 25,000 units in 250 mls @ 16.248 mls/hr IV .[id number] PRN; Protocol PRN Reason: ADJUST RATE PER PROTOCOL Last Titration: 05/31/18 10:20 Dose: 0 units/kg/hr, 0 mls/hr Metronidazole (Flagyl) 500 mg in 100 mls @ 100 mls/hr IVPB Q8 [facility]; Protocol Last Admin: 06/05/18 06:03 Dose: 100 mls/hr Linezolid (Zyvox 600mg/300ml D5w) 600 mg in 300 mls @ 200 mls/hr IVPB Q12 [facility]; Protocol Stop: 06/08/18 13:31 Last Admin: 06/04/18 21:35 Dose: 200 mls/hr Aztreonam (Azactam 1 Gm) 100 mls @ 100 mls/hr IVPB Q12 [facility]; Protocol Stop: 06/09/18 22:01 Last Admin: 06/04/18 21:33 Dose: 100 mls/hr Insulin Human Lispro (Humalog High) 0 units SC ACHS [facility]; Protocol Last Admin: 06/04/18 21:34 Dose: Not Given Insulin Lispro Protam/Lispro Human (Humalog Mix 75/25) 10 units SC ACBD [facility] Last Admin: 06/04/18 18:41 Dose: Not Given Isosorbide Mononitrate (Imdur Er) 30 mg PO 0600 [facility] Last Admin: 06/03/18 05:08 Dose: Not Given Labetalol HCl (Trandate) 200 mg PO BID [facility] Last Admin: 06/02/18 09:34 Dose: Not Given Levalbuterol HCl (Xopenex) 1.25 mg IH [id number] [facility] Last Admin: 06/05/18 02:48 Dose: 1.25 mg Meclizine HCl (Antivert) 25 mg PO TID PRN PRN Reason: dizzy Last Admin: 05/30/18 11:26 Dose: 25 mg Metoprolol Tartrate (Lopressor) 50 mg PO Q12H [facility] Last Admin: 05/30/18 01:30 Dose: 50 mg Metoprolol Tartrate (Lopressor) 5 mg IVP Q6H [facility] Last Admin: 06/05/18 04:36 Dose: 5 mg Nitroglycerin (Nitro-Bid 2% Oint) 1 ea TOP Q8H [facility] Last Admin: 06/05/18 01:46 Dose: 1 ea Ondansetron HCl (Zofran Inj) 4 mg IVP Q6H PRN PRN Reason: Nausea/Vomiting Oxychlorosene Sodium (Clorpactin Wcs-90) 2 gm TOP DAILY [facility] Last Admin: 06/04/18 13:54 Dose: Not Given Pantoprazole Sodium (Protonix Inj) 40 mg IVP DAILY [facility] Last Admin: 06/04/18 13:59 Dose: 40 mg Simethicone (Mylicon Chew Tab) 80 mg PO PCHS PRN PRN Reason: GI distress Last Admin: 05/31/18 09:48 Dose: 80 mg - Labs Labs: 06/04/18 06:10 06/04/18 06:10 PT 23.6 SECONDS (9.4-12.5) H 06/02/18 10:05 INR 2.09 06/02/18 10:05 APTT 34.5 Seconds (26.9-38.3) 06/02/18 10:05 - Constitutional Appears: No Acute Distress, Chronically Ill - Head Exam Head Exam: ATRAUMATIC, NORMAL INSPECTION, NORMOCEPHALIC - Eye Exam Eye Exam: Normal appearance, PERRL. absent: Conjunctival injection, Scleral icterus - ENT Exam ENT Exam: Mucous Membranes Dry Additional comments: NGT in place High flow in place - Respiratory Exam Respiratory Exam: Rales (mimimal R>L), NORMAL BREATHING PATTERN. absent: Accessory Muscle Use, Respiratory Distress - Cardiovascular Exam Cardiovascular Exam: Irregular Rhythm, +S1, +S2. absent: Murmur - GI/Abdominal Exam GI & Abdominal Exam: Soft, Tenderness (diffuse to palpation). 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 POD#3 exlap, small bowel resection, incidental appendectomy, with jejunocecal anastamosis. Patient on high flow; NGT in place. Creatinine stable at 3.4-3.6 at this time. She is [employer]. GILBERTO likely secondary to contrast induced nephropathy at first coupled with volume depletion in light of patient's multiple episodes of emesis and decreased PO intake prior to going to the OR in light of the obstruction. Avoid nephrotoxic drugs. Continue Novrasc, Lopressor, Labetalol, Hydralazine and Catapres for HTN management. Patient on Azactam and Flagyl due to PCN allergy. Will continue to monitor urine output closely. Continue management as per MICU team. Discussed with Dr. Roland Maciel PGY3 <Kailash Watkins S - Last Filed: 06/05/18 16:19> Objective - Vital Signs/Intake and Output Vital Signs (last 24 hours): Temp Pulse Resp BP Pulse Ox 98.2 F 91 H 28 H 175/59 H 95 06/04/18 10:01 06/05/18 14:30 06/05/18 13:22 06/05/18 10:23 06/04/18 22:01 Intake and Output: 06/05/18 06/05/18 06:59 18:59 Intake Total 1200 Output Total 420 Balance 780 - Medications Medications: Current Medications Acetaminophen (Tylenol 325mg Tab) 650 mg PO Q6H PRN PRN Reason: Fever >100.4 F Last Admin: 05/30/18 01:30 Dose: 650 mg Albuterol/Ipratropium (Duoneb 3 Mg/0.5 Mg (3 Ml) Ud) 3 ml IH Q2H PRN PRN Reason: Shortness of Breath Amlodipine Besylate (Norvasc) 10 mg PO DAILY [facility] Last Admin: 06/02/18 09:34 Dose: Not Given Aspirin (Aspirin Chewable) 81 mg PO DAILY [facility] Last Admin: 06/05/18 10:23 Dose: 81 mg Atorvastatin Calcium (Lipitor) 40 mg PO QOTHERDAY [facility] Last Admin: 06/04/18 13:54 Dose: Not Given Clonidine HCl (Catapres) 0.3 mg PO TID [facility] Last Admin: 06/03/18 10:50 Dose: Not Given Dextrose (Dextrose 50% Inj) 50 ml IVP ONCE PRN PRN Reason: Hypoglycemia Furosemide (Lasix) 40 mg IVP Q12 [facility] Last Admin: 06/05/18 10:23 Dose: 40 mg Heparin Sodium (Porcine) (Heparin) 5,000 units SC Q8 [facility]; Protocol Last Admin: 06/05/18 14:33 Dose: 5,000 units Hydralazine HCl (Apresoline) 10 mg IV Q6H PRN PRN Reason: Systolic Blood Pressure Last Admin: 06/04/18 01:05 Dose: 10 mg Hydralazine HCl (Apresoline) 25 mg PO Q6H [facility] Last Admin: 06/02/18 05:37 Dose: Not Given Hydromorphone HCl (Dilaudid) 0.5 mg IVP Q4H PRN PRN Reason: Pain, moderate (4-7) Last Admin: 06/05/18 14:31 Dose: 0.5 mg Heparin Sodium/Sodium Chloride (Heparin 83310 Units/250ml 1/2 Normal Saline) 25,000 units in 250 mls @ 16.248 mls/hr IV .[id number] PRN; Protocol PRN Reason: ADJUST RATE PER PROTOCOL Last Titration: 05/31/18 10:20 Dose: 0 units/kg/hr, 0 mls/hr Metronidazole (Flagyl) 500 mg in 100 mls @ 100 mls/hr IVPB Q8 [facility]; Protocol Last Admin: 06/05/18 14:33 Dose: 100 mls/hr Linezolid (Zyvox 600mg/300ml D5w) 600 mg in 300 mls @ 200 mls/hr IVPB Q12 [facility]; Protocol Stop: 06/08/18 13:31 Last Admin: 06/05/18 14:40 Dose: 200 mls/hr Aztreonam (Azactam 1 Gm) 100 mls @ 100 mls/hr IVPB Q12 [facility]; Protocol Stop: 06/09/18 22:01 Last Admin: 06/05/18 10:21 Dose: 100 mls/hr Insulin Human Lispro (Humalog High) 0 units SC ACHS [facility]; Protocol Last Admin: 06/05/18 14:34 Dose: Not Given Insulin Lispro Protam/Lispro Human (Humalog Mix 75/25) 10 units SC ACBD [facility] Last Admin: 06/05/18 07:00 Dose: Not Given Isosorbide Mononitrate (Imdur Er) 30 mg PO 0600 [facility] Last Admin: 06/03/18 05:08 Dose: Not Given Labetalol HCl (Trandate) 200 mg PO BID [facility] Last Admin: 06/02/18 09:34 Dose: Not Given Levalbuterol HCl (Xopenex) 1.25 mg IH [id number] [facility] Last Admin: 06/05/18 13:19 Dose: 1.25 mg Meclizine HCl (Antivert) 25 mg PO TID PRN PRN Reason: dizzy Last Admin: 05/30/18 11:26 Dose: 25 mg Metoprolol Tartrate (Lopressor) 50 mg PO Q12H [facility] Last Admin: 05/30/18 01:30 Dose: 50 mg Metoprolol Tartrate (Lopressor) 5 mg IVP Q6H [facility] Last Admin: 06/05/18 10:22 Dose: 5 mg Nitroglycerin (Nitro-Bid 2% Oint) 1 ea TOP Q8H [facility] Last Admin: 06/05/18 13:00 Dose: 1 ea Ondansetron HCl (Zofran Inj) 4 mg IVP Q6H PRN PRN Reason: Nausea/Vomiting Oxychlorosene Sodium (Clorpactin Wcs-90) 2 gm TOP DAILY [facility] Last Admin: 06/05/18 11:00 Dose: 2 gm Pantoprazole Sodium (Protonix Inj) 40 mg IVP DAILY [facility] Last Admin: 06/05/18 10:00 Dose: 40 mg Simethicone (Mylicon Chew Tab) 80 mg PO PCHS PRN PRN Reason: GI distress Last Admin: 05/31/18 09:48 Dose: 80 mg - Labs Labs: 06/05/18 05:50 06/05/18 05:50 PT 23.6 SECONDS (9.4-12.5) H 06/02/18 10:05 INR 2.09 06/02/18 10:05 APTT 34.5 Seconds (26.9-38.3) 06/02/18 10:05 Assessment and Plan - Assessment and Plan (Free Text) Plan: Pt seen and examined by me. I have reviewed the note of the medical voucher clerk and I agree with it. I have discussed the assessment and plan with the resident. I have reviewed the medications and the last labs. Pt with GILBERTO due to contrast nephropathy. She has HTN and is on multiple BP medications. She has PAD with toe gangrene. She has CKD-3 that is chronic and will need to continue with following labs. Pt is on Azactam and Flagyl. Cr is stable. Spoke to surgery about case.
[2018-06-05] MEDS: Insulin Lispro (humaLOG) MIX 75/25(10 ml) SC SCH (07:00)
[2018-06-05 07:16] LABS: HEMOGLOBIN 8.4 g/dL (12.0-16.0); MEAN CORPUSCULAR HEMOGLOBIN 26.5 pg (25.0-35.0); MEAN CORPUSCULAR HGB CONC 31.9 g/dl (31.0-37.0); MEAN PLATELET VOLUME 9.2 fl (7.0-11.0); RBC 3.17 10^6/uL (3.5-6.1); RED CELL DISTRIBUTION WIDTH 17.8 % (11.5-14.5); WHITE BLOOD COUNT 20.2 10^3/uL (4.5-11.0)
[2018-06-05 07:31] LABS: ALB/GLOB RATIO 0.8 (1.1-1.8); ALBUMIN 2.5 g/dL (3.0-4.8); CALCIUM 7.7 mg/dL (8.4-10.5)
--- NOTE | 2018-06-05 07:43 | CP.CCUPN ---
<Ariane Hernandez - Last Filed: 06/05/18 10:09> CCU Subjective - Physician Review Subjective (Free Text): Ariane Hernandez PGY1 Critical Care Progress Note Patient seen and examined at bedside this morning. No acute events overnight. POD #3 laparatomy with appendectomy, small bowel resection and jejunocecal anastomosis from necrotic bowel. Patient states she slept comfortably and denies CP, SOB, nausea and vomiting. Patient continues to admit to generalized abdominal pain. O2 saturation is 95% on high flow oxygen. Denies BM. Will advance diet to liquids. CCU Objective - Vital Signs / Intake & Output Intake and Output (Last 8hrs): Intake & Output 06/04/18 06/05/18 06/05/18 22:59 06:59 14:59 Intake Total 500 Output Total 295 Balance 205 Intake: IV 500 Right Forearm 500 Output: Drainage 120 Left 50 Right 70 Urine 175 Urethral (Meier) 175 - Physical Exam Head: Positive for: Atraumatic, Normocephalic Pupils: Positive for: PERRL Extroacular Muscles: Positive for: EOMI Conjunctiva: Positive for: Normal Mouth: Positive for: Moist Mucous Membranes Neck: Positive for: Normal Range of Motion Respiratory/Chest: Positive for: Good Air Exchange, Other (minimal crackles R > L ). Negative for: Respiratory Distress, Accessory Muscle Use Cardiovascular: Positive for: Normal S1, S2, Irregular Rhythm. Negative for: Murmurs Abdomen: Positive for: Normal Bowel Sounds, Other (dressing is non draining/bleeding). Negative for: Tenderness, Distention, Peritoneal Signs Back: Positive for: Normal Inspection Upper Extremity: Positive for: Normal Inspection. Negative for: Cyanosis, Edema Lower Extremity: Positive for: Normal Inspection, Normal ROM, Tenderness, Other (Grangrenous left 2nd toe noted). Negative for: Edema, CALF TENDERNESS, Marek's Sign Neurological: Positive for: GCS=15, CN II-XII Intact, Speech Normal Skin: Positive for: Warm, Dry, Normal Color. Negative for: Rashes Psychiatric: Positive for: Alert, Oriented x 3 - Medications Active Medications: Active Medications Generic Name Dose Route Start Last Admin Trade Name Freq PRN Reason Stop Dose Admin Acetaminophen 650 mg 05/21/18 20:42 05/30/18 01:30 Tylenol 325mg Tab PO 650 mg Q6H PRN Administration Fever >100.4 F Albuterol/Ipratropium 3 ml 06/02/18 18:21 Duoneb 3 Mg/0.5 Mg (3 Ml) Ud IH Q2H PRN Shortness of Breath Amlodipine Besylate 10 mg 05/22/18 10:00 06/02/18 09:34 Norvasc PO Not Given DAILY [facility] Aspirin 81 mg 05/28/18 10:00 06/04/18 13:54 Aspirin Chewable PO Not Given DAILY [facility] Atorvastatin Calcium 40 mg 05/23/18 10:00 06/04/18 13:54 Lipitor PO Not Given QOTHERDAY [facility] Clonidine HCl 0.3 mg 05/22/18 10:00 06/03/18 10:50 Catapres PO Not Given TID [facility] Dextrose 50 ml 05/23/18 16:44 Dextrose 50% Inj IVP ONCE PRN Hypoglycemia Furosemide 40 mg 06/04/18 22:00 06/04/18 21:34 Lasix IVP 40 mg Q12 [facility] Administration Heparin Sodium (Porcine) 5,000 units 06/02/18 22:00 06/05/18 06:03 Heparin SC 5,000 units Q8 [facility] Administration Protocol Hydralazine HCl 10 mg 05/31/18 06:15 06/04/18 01:05 Apresoline IV 10 mg Q6H PRN Administration Systolic Blood Pressure Hydralazine HCl 25 mg 05/31/18 06:15 06/02/18 05:37 Apresoline PO Not Given Q6H [facility] Hydromorphone HCl 0.5 mg 06/03/18 11:47 06/05/18 03:05 Dilaudid IVP 0.5 mg Q4H PRN Administration Pain, moderate (4-7) Heparin Sodium/Sodium Chloride 25,000 units in 250 mls @ 16.248 mls/hr 05/30/18 03:19 05/31/18 10:20 Heparin 32085 Units/250ml 1/2 Normal Saline IV 0 units/kg/hr .[id number] PRN 0 mls/hr ADJUST RATE PER PROTOCOL Titration Protocol 18 UNITS/KG/HR Metronidazole 500 mg in 100 mls @ 100 mls/hr 06/01/18 14:00 06/05/18 06:03 Flagyl IVPB 100 mls/hr Q8 [facility] Administration Protocol Linezolid 600 mg in 300 mls @ 200 mls/hr 06/01/18 13:30 06/04/18 21:35 Zyvox 600mg/300ml D5w IVPB 06/08/18 13:31 200 mls/hr Q12 [facility] Administration Protocol Aztreonam 100 mls @ 100 mls/hr 06/02/18 22:00 06/04/18 21:33 Azactam 1 Gm IVPB 06/09/18 22:01 100 mls/hr Q12 [facility] Administration Protocol Insulin Human Lispro 0 units 05/21/18 22:00 06/04/18 21:34 Humalog High SC Not Given ACHS [facility] Protocol Insulin Lispro Protam/Lispro Human 10 units 05/25/18 16:30 06/04/18 18:41 Humalog Mix 75/25 SC Not Given ACBD [facility] Isosorbide Mononitrate 30 mg 05/22/18 06:00 06/03/18 05:08 Imdur Er PO Not Given 0600 [facility] Labetalol HCl 200 mg 05/30/18 06:54 06/02/18 09:34 Trandate PO Not Given BID [facility] Levalbuterol HCl 1.25 mg 05/26/18 14:00 06/05/18 02:48 Xopenex IH 1.25 mg [id number] [facility] Administration Meclizine HCl 25 mg 05/21/18 20:02 05/30/18 11:26 Antivert PO 25 mg TID PRN Administration dizzy Metoprolol Tartrate 50 mg 05/28/18 13:30 05/30/18 01:30 Lopressor PO 50 mg Q12H [facility] Administration Metoprolol Tartrate 5 mg 06/02/18 10:45 06/05/18 04:36 Lopressor IVP 5 mg Q6H [facility] Administration Nitroglycerin 1 ea 05/27/18 10:45 06/05/18 01:46 Nitro-Bid 2% Oint TOP 1 ea Q8H [facility] Administration Ondansetron HCl 4 mg 06/01/18 10:58 Zofran Inj IVP Q6H PRN Nausea/Vomiting Oxychlorosene Sodium 2 gm 06/02/18 10:00 06/04/18 13:54 Clorpactin Wcs-90 TOP Not Given DAILY [facility] Pantoprazole Sodium 40 mg 06/01/18 13:30 06/04/18 13:59 Protonix Inj IVP 40 mg DAILY [facility] Administration Simethicone 80 mg 05/30/18 04:02 05/31/18 09:48 Mylicon Chew Tab PO 80 mg PCHS PRN Administration GI distress - Patient Studies Lab Studies: Lab Studies 06/05/18 06/04/18 06/04/18 Range/Units 05:50 22:10 11:14 WBC 20.2 H (4.5-11.0) 10^3/uL RBC 3.17 L (3.5-6.1) 10^6/uL Hgb 8.4 L (12.0-16.0) g/dL Hct 26.3 L (36.0-48.0) % MCV 83.0 (80.0-105.0) fl MCH 26.5 (25.0-35.0) pg MCHC 31.9 (31.0-37.0) g/dl RDW 17.8 H (11.5-14.5) % Plt Count 217 (120.0-450.0) 10^3/uL MPV 9.2 (7.0-11.0) fl POC Glucose (mg/dL) 152 H 136 H (65-110) mg/dL 06/04/18 Range/Units 07:17 WBC (4.5-11.0) 10^3/uL RBC (3.5-6.1) 10^6/uL Hgb (12.0-16.0) g/dL Hct (36.0-48.0) % MCV (80.0-105.0) fl MCH (25.0-35.0) pg MCHC (31.0-37.0) g/dl RDW (11.5-14.5) % Plt Count (120.0-450.0) 10^3/uL MPV (7.0-11.0) fl POC Glucose (mg/dL) 150 H (65-110) mg/dL Laboratory Results - last 24 hr 06/04/18 06/04/18 06/04/18 07:17 11:14 22:10 WBC RBC Hgb Hct MCV MCH MCHC RDW Plt Count MPV POC Glucose (mg/dL) 150 H 136 H 152 H 06/05/18 05:50 WBC 20.2 H RBC 3.17 L Hgb 8.4 L Hct 26.3 L MCV 83.0 MCH 26.5 MCHC 31.9 RDW 17.8 H Plt Count 217 MPV 9.2 POC Glucose (mg/dL) Radiology Impressions: Radiology Impressions Chest X-Ray 06/04/18 09:32 IMPRESSION: Improved upper lobe infiltrates. Persistent perihilar infiltrates. Extremity Ultrasound 06/04/18 10:32 IMPRESSION: No sonographic evidence for deep venous thrombosis in the visualized segments of both lower extremities. Limited study. Fingerstick Blood Sugar Results: 150 Critical Care Progress Note - Nutrition Nutrition: Nutrition Category Date Time Status NPO Diet [DIET] Diets 06/01/18 Lunch Ordered Assessment/Plan - Assessment and Plan (Free Text) Plan: 67 year old with past medical history of type II diabetes mellitus, HTN, HLD, CAD, atrial fibrillation on coumadin, abdominal hernia, CVA who presents intubated for hypoxic respiratory failure 2/2 cardiogenic vs non cardiogenic pulmonary edema. POD #3 for incarcerated ventral hernia surgery with small bowel resection and jejunocecal anastamosis for necrotic bowel. Will continue with high flow oxygen at this time. Advanced diet to liquids. Plan: Acute hypoxic respiratory failure 2/2 cardiogenic vs. noncardiogenic pulmonary edema -CXR 06/04 shows improved upper lobe infiltrates, persistent perihilar infiltrates -extubated 06/03/18 patient placed on high flow oxygen with oxygen saturation 95% -AO x3, protecting airway -ABG pending today -ABG 06/03/18 shows pH/CO2/O2 7.35/32/330 and bicarb of 19 while on FiO2 f 10%, intubated. Now extubated -lasix 40 mg IV BID -900cc urine output meier over the last day -Maintain O2 saturation>90% -possible bipap if O2 sat do not improve > 92% -LE dopplers 06/04/18 negative for DVT -Cardio on consult, Dr. Cade Small bowel obstruction 2/2 to incarcerated ventral hernia -POD #3 status post colectomy with jejunocecal anastamosis for necrotic bowel -Abdominal CT 06/01/18: showed incarcerated bowel in left lower quadrant of abdomen. -Continue with flagyl and azactam as per ID recommendations -pain control with dilaudid -General sx on consult, Dr. Morrell -GI on consult, Dr. Gaxiola -PT eval Diet -NPO, will advance as per surgery recommendations -GI ppx with Protonix 40 mg daily GILBERTO -BUN/Cr is 82/3.6, stable from yesterday -Good urine output overnight -Replete electrolytes as needed -Maintain euvolemia -Nephro on consult, Dr. Watkins Anemia -Hg is 8.4 from 8.6 yesterday -s/p 2 units PRBC on 06/03/18 Osteomyelitis of left 2nd Toe -Continue with antibiotics as per ID, zyvox -Continue with oxychlorosene as per podiatry -right foot wound cx positive for corynebacterium -possible OR by podiatry later this week -ID and podiatry on consult -IR on consult Atrial fibrillation -currently rate controlled -Echocardiogram: 74%, biatrial enlargement -Troponin: <0.01, 0.02 on 05/28. -Maintain MAP>65. -currently normotensive, will resume oral HTN medications when patient tolerates PO PPX with protonix and SCD Patient seen and examined with Dr. Carlos <Anselmo Carlos - Last Filed: 06/05/18 14:31> CCU Objective - Vital Signs / Intake & Output Vital Signs (Last 4 hours): Vital Signs Resp 06/05/18 07:33 18 Intake and Output (Last 8hrs): Intake & Output 06/04/18 06/05/18 06/05/18 22:59 06:59 14:59 Intake Total 500 700 Output Total 295 125 Balance 205 575 Intake: IV 500 700 Right Forearm 500 500 Right Hand 200 Output: Drainage 120 125 Left 50 75 Right 70 50 Urine 175 Urethral (Meier) 175 - Medications Active Medications: Active Medications Generic Name Dose Route Start Last Admin Trade Name Freq PRN Reason Stop Dose Admin Acetaminophen 650 mg 05/21/18 20:42 05/30/18 01:30 Tylenol 325mg Tab PO 650 mg Q6H PRN Administration Fever >100.4 F Albuterol/Ipratropium 3 ml 06/02/18 18:21 Duoneb 3 Mg/0.5 Mg (3 Ml) Ud IH Q2H PRN Shortness of Breath Amlodipine Besylate 10 mg 05/22/18 10:00 06/02/18 09:34 Norvasc PO Not Given DAILY [facility] Aspirin 81 mg 05/28/18 10:00 06/04/18 13:54 Aspirin Chewable PO Not Given DAILY [facility] Atorvastatin Calcium 40 mg 05/23/18 10:00 06/04/18 13:54 Lipitor PO Not Given QOTHERDAY [facility] Clonidine HCl 0.3 mg 05/22/18 10:00 06/03/18 10:50 Catapres PO Not Given TID [facility] Dextrose 50 ml 05/23/18 16:44 Dextrose 50% Inj IVP ONCE PRN Hypoglycemia Furosemide 40 mg 06/04/18 22:00 06/04/18 21:34 Lasix IVP 40 mg Q12 [facility] Administration Heparin Sodium (Porcine) 5,000 units 06/02/18 22:00 06/05/18 06:03 Heparin SC 5,000 units Q8 [facility] Administration Protocol Hydralazine HCl 10 mg 05/31/18 06:15 06/04/18 01:05 Apresoline IV 10 mg Q6H PRN Administration Systolic Blood Pressure Hydralazine HCl 25 mg 05/31/18 06:15 06/02/18 05:37 Apresoline PO Not Given Q6H [facility] Hydromorphone HCl 0.5 mg 06/03/18 11:47 06/05/18 07:29 Dilaudid IVP 0.5 mg Q4H PRN Administration Pain, moderate (4-7) Heparin Sodium/Sodium Chloride 25,000 units in 250 mls @ 16.248 mls/hr 05/30/18 03:19 05/31/18 10:20 Heparin 93532 Units/250ml 1/2 Normal Saline IV 0 units/kg/hr .[id number] PRN 0 mls/hr ADJUST RATE PER PROTOCOL Titration Protocol 18 UNITS/KG/HR Metronidazole 500 mg in 100 mls @ 100 mls/hr 06/01/18 14:00 06/05/18 06:03 Flagyl IVPB 100 mls/hr Q8 [facility] Administration Protocol Linezolid 600 mg in 300 mls @ 200 mls/hr 06/01/18 13:30 06/04/18 21:35 Zyvox 600mg/300ml D5w IVPB 06/08/18 13:31 200 mls/hr Q12 [facility] Administration Protocol Aztreonam 100 mls @ 100 mls/hr 06/02/18 22:00 06/04/18 21:33 Azactam 1 Gm IVPB 06/09/18 22:01 100 mls/hr Q12 [facility] Administration Protocol Insulin Human Lispro 0 units 05/21/18 22:00 06/05/18 07:59 Humalog High SC Not Given ACHS [facility] Protocol Insulin Lispro Protam/Lispro Human 10 units 05/25/18 16:30 06/04/18 18:41 Humalog Mix 75/25 SC Not Given ACBD [facility] Isosorbide Mononitrate 30 mg 05/22/18 06:00 06/03/18 05:08 Imdur Er PO Not Given 0600 [facility] Labetalol HCl 200 mg 05/30/18 06:54 06/02/18 09:34 Trandate PO Not Given BID [facility] Levalbuterol HCl 1.25 mg 05/26/18 14:00 06/05/18 07:31 Xopenex IH 1.25 mg [id number] [facility] Administration Meclizine HCl 25 mg 05/21/18 20:02 05/30/18 11:26 Antivert PO 25 mg TID PRN Administration dizzy Metoprolol Tartrate 50 mg 05/28/18 13:30 05/30/18 01:30 Lopressor PO 50 mg Q12H [facility] Administration Metoprolol Tartrate 5 mg 06/02/18 10:45 06/05/18 04:36 Lopressor IVP 5 mg Q6H [facility] Administration Nitroglycerin 1 ea 05/27/18 10:45 06/05/18 01:46 Nitro-Bid 2% Oint TOP 1 ea Q8H [facility] Administration Ondansetron HCl 4 mg 06/01/18 10:58 Zofran Inj IVP Q6H PRN Nausea/Vomiting Oxychlorosene Sodium 2 gm 06/02/18 10:00 06/04/18 13:54 Clorpactin Wcs-90 TOP Not Given DAILY [facility] Pantoprazole Sodium 40 mg 06/01/18 13:30 06/04/18 13:59 Protonix Inj IVP 40 mg DAILY [facility] Administration Simethicone 80 mg 05/30/18 04:02 05/31/18 09:48 Mylicon Chew Tab PO 80 mg PCHS PRN Administration GI distress - Patient Studies Lab Studies: Lab Studies 06/05/18 06/05/18 06/04/18 Range/Units 05:50 05:50 22:10 WBC 20.2 H (4.5-11.0) 10^3/uL RBC 3.17 L (3.5-6.1) 10^6/uL Hgb 8.4 L (12.0-16.0) g/dL Hct 26.3 L (36.0-48.0) % MCV 83.0 (80.0-105.0) fl MCH 26.5 (25.0-35.0) pg MCHC 31.9 (31.0-37.0) g/dl RDW 17.8 H (11.5-14.5) % Plt Count 217 (120.0-450.0) 10^3/uL MPV 9.2 (7.0-11.0) fl Sodium 141 (132-148) mmol/L Potassium 4.4 (3.6-5.0) mmol/L Chloride 112 H (98-107) mmol/L Carbon Dioxide 19 L (21-33) mmol/L Anion Gap 14 (10-20) BUN 82 H (7-21) mg/dL Creatinine 3.6 H (0.7-1.2) mg/dl Est GFR ( Amer) 15 Est GFR (Non-Af Amer) 13 POC Glucose (mg/dL) 152 H (65-110) mg/dL Random Glucose 136 H (70-110) mg/dL Calcium 7.7 L (8.4-10.5) mg/dL Phosphorus 6.9 H (2.5-4.5) mg/dL Magnesium 2.9 H (1.7-2.2) mg/dL Total Bilirubin 2.3 H (0.2-1.3) mg/dL AST 28 (14-36) U/L ALT 24 (7-56) U/L Alkaline Phosphatase 126 (38-126) U/L Total Protein 5.5 L (5.8-8.3) g/dL Albumin 2.5 L (3.0-4.8) g/dL Globulin 3.1 gm/dL Albumin/Globulin Ratio 0.8 L (1.1-1.8) Crossmatch 06/04/18 06/04/18 06/04/18 Range/Units 16:19 11:14 07:17 WBC (4.5-11.0) 10^3/uL RBC (3.5-6.1) 10^6/uL Hgb (12.0-16.0) g/dL Hct (36.0-48.0) % MCV (80.0-105.0) fl MCH (25.0-35.0) pg MCHC (31.0-37.0) g/dl RDW (11.5-14.5) % Plt Count (120.0-450.0) 10^3/uL MPV (7.0-11.0) fl Sodium (132-148) mmol/L Potassium (3.6-5.0) mmol/L Chloride (98-107) mmol/L Carbon Dioxide (21-33) mmol/L Anion Gap (10-20) BUN (7-21) mg/dL Creatinine (0.7-1.2) mg/dl Est GFR ( Amer) Est GFR (Non-Af Amer) POC Glucose (mg/dL) 176 H 136 H 150 H (65-110) mg/dL Random Glucose (70-110) mg/dL Calcium (8.4-10.5) mg/dL Phosphorus (2.5-4.5) mg/dL Magnesium (1.7-2.2) mg/dL Total Bilirubin (0.2-1.3) mg/dL AST (14-36) U/L ALT (7-56) U/L Alkaline Phosphatase (38-126) U/L Total Protein (5.8-8.3) g/dL Albumin (3.0-4.8) g/dL Globulin gm/dL Albumin/Globulin Ratio (1.1-1.8) Crossmatch 06/01/18 Range/Units 16:30 WBC (4.5-11.0) 10^3/uL RBC (3.5-6.1) 10^6/uL Hgb (12.0-16.0) g/dL Hct (36.0-48.0) % MCV (80.0-105.0) fl MCH (25.0-35.0) pg MCHC (31.0-37.0) g/dl RDW (11.5-14.5) % Plt Count (120.0-450.0) 10^3/uL MPV (7.0-11.0) fl Sodium (132-148) mmol/L Potassium (3.6-5.0) mmol/L Chloride (98-107) mmol/L Carbon Dioxide (21-33) mmol/L Anion Gap (10-20) BUN (7-21) mg/dL Creatinine (0.7-1.2) mg/dl Est GFR ( Amer) Est GFR (Non-Af Amer) POC Glucose (mg/dL) (65-110) mg/dL Random Glucose (70-110) mg/dL Calcium (8.4-10.5) mg/dL Phosphorus (2.5-4.5) mg/dL Magnesium (1.7-2.2) mg/dL Total Bilirubin (0.2-1.3) mg/dL AST (14-36) U/L ALT (7-56) U/L Alkaline Phosphatase (38-126) U/L Total Protein (5.8-8.3) g/dL Albumin (3.0-4.8) g/dL Globulin gm/dL Albumin/Globulin Ratio (1.1-1.8) Crossmatch See Detail Laboratory Results - last 24 hr 06/01/18 06/04/18 06/04/18 16:30 07:17 11:14 WBC RBC Hgb Hct MCV MCH MCHC RDW Plt Count MPV Sodium Potassium Chloride Carbon Dioxide Anion Gap BUN Creatinine Est GFR ( Amer) Est GFR (Non-Af Amer) POC Glucose (mg/dL) 150 H 136 H Random Glucose Calcium Phosphorus Magnesium Total Bilirubin AST ALT Alkaline Phosphatase Total Protein Albumin Globulin Albumin/Globulin Ratio Crossmatch See Detail 06/04/18 06/04/18 06/05/18 16:19 22:10 05:50 WBC 20.2 H RBC 3.17 L Hgb 8.4 L Hct 26.3 L MCV 83.0 MCH 26.5 MCHC 31.9 RDW 17.8 H Plt Count 217 MPV 9.2 Sodium Potassium Chloride Carbon Dioxide Anion Gap BUN Creatinine Est GFR ( Amer) Est GFR (Non-Af Amer) POC Glucose (mg/dL) 176 H 152 H Random Glucose Calcium Phosphorus Magnesium Total Bilirubin AST ALT Alkaline Phosphatase Total Protein Albumin Globulin Albumin/Globulin Ratio Crossmatch 06/05/18 05:50 WBC RBC Hgb Hct MCV MCH MCHC RDW Plt Count MPV Sodium 141 Potassium 4.4 Chloride 112 H Carbon Dioxide 19 L Anion Gap 14 BUN 82 H Creatinine 3.6 H Est GFR ( Amer) 15 Est GFR (Non-Af Amer) 13 POC Glucose (mg/dL) Random Glucose 136 H Calcium 7.7 L Phosphorus 6.9 H Magnesium 2.9 H Total Bilirubin 2.3 H AST 28 ALT 24 Alkaline Phosphatase 126 Total Protein 5.5 L Albumin 2.5 L Globulin 3.1 Albumin/Globulin Ratio 0.8 L Crossmatch Radiology Impressions: Radiology Impressions Extremity Ultrasound 06/04/18 10:32 IMPRESSION: No sonographic evidence for deep venous thrombosis in the visualized segments of both lower extremities. Limited study. Critical Care Progress Note - Nutrition Nutrition: Nutrition Category Date Time Status Liquid Diet [DIET] Diets 06/05/18 Lunch Ordered Attending/Attestation - Attestation I have personally seen and examined this patient.: Yes I have fully participated in the care of the patient.: Yes I have reviewed all pertinent clinical information: Yes Notes (Text): 06/05/18 10:22 The patient was seen and examined at the bedside. Patient care was discussed with resident Medical records, lab studies were reviewed and management issues were discussed and formulated. Agree with above treatment plans as outlined in 's note with addition of the following: Acute Respiratory Failure \ Hypoxemia \ Ischemic bowel \ GILBERTO \ CHF \ PVD \ DM 2 \ HTN \ OM \ Left toe gangrene \ SBO \ Anemia \ PNA -hemodynamic monitoring to maintain MAP>65 -continue o2 supplementation to maintain Spo2 >90 Pao2>60 -currently on High FLow Humidified NC ; tolerating well -f\u repeat ABG -right LL consolidation noted on CXR -continue nebs and pulmonary toileting -continue Abx; ID team f\u; f\u cultures -f\u Bun\Cr and U\o; monitor and replace e-lites; diuresis with lasix -renal team f\u -advance diet as per surgical team ; aspiration precautions -ISS and BGM monitoring; monitor for hypoglycemia -surgical team post-op f\u -restart anticoagulation when ok by surgical team -DVT \ PUD prophylaxis CCM time 33min 06/05/18 14:31
[2018-06-05] MEDS: Insulin Lispro (HUMAlog) HIGH Coverage SC SCH ×3 (07:59→18:34)
--- NOTE | 2018-06-05 09:55 | CP.PCM.PN ---
Subjective - Date & Time of Evaluation Date of Evaluation: 06/05/18 Time of Evaluation: 09:52 - Subjective Subjective: General Surgery Progress Note for Dr. Morrell This 67F was seen and examined this AM at bedside no acute events overnight. Pt still requiring high flow nasal cannula. She requesting food/drink this AM. She is not ambuklating, denies flatus or BM. She has minimal NGT output, she has 120cc serosanguinous from both the intra and extrapertioneal drains. Wounds clean dry and intact. Objective - Vital Signs/Intake and Output Vital Signs (last 24 hours): Temp Pulse Resp BP Pulse Ox 98.2 F 83 18 131/47 L 95 06/04/18 10:01 06/05/18 06:00 06/05/18 07:33 06/04/18 22:01 06/04/18 22:01 Intake and Output: 06/05/18 06/05/18 06:59 18:59 Intake Total 1200 Output Total 420 Balance 780 - Medications Medications: Current Medications Acetaminophen (Tylenol 325mg Tab) 650 mg PO Q6H PRN PRN Reason: Fever >100.4 F Last Admin: 05/30/18 01:30 Dose: 650 mg Albuterol/Ipratropium (Duoneb 3 Mg/0.5 Mg (3 Ml) Ud) 3 ml IH Q2H PRN PRN Reason: Shortness of Breath Amlodipine Besylate (Norvasc) 10 mg PO DAILY [facility] Last Admin: 06/02/18 09:34 Dose: Not Given Aspirin (Aspirin Chewable) 81 mg PO DAILY [facility] Last Admin: 06/04/18 13:54 Dose: Not Given Atorvastatin Calcium (Lipitor) 40 mg PO QOTHERDAY [facility] Last Admin: 06/04/18 13:54 Dose: Not Given Clonidine HCl (Catapres) 0.3 mg PO TID [facility] Last Admin: 06/03/18 10:50 Dose: Not Given Dextrose (Dextrose 50% Inj) 50 ml IVP ONCE PRN PRN Reason: Hypoglycemia Furosemide (Lasix) 40 mg IVP Q12 [facility] Last Admin: 06/04/18 21:34 Dose: 40 mg Heparin Sodium (Porcine) (Heparin) 5,000 units SC Q8 [facility]; Protocol Last Admin: 06/05/18 06:03 Dose: 5,000 units Hydralazine HCl (Apresoline) 10 mg IV Q6H PRN PRN Reason: Systolic Blood Pressure Last Admin: 06/04/18 01:05 Dose: 10 mg Hydralazine HCl (Apresoline) 25 mg PO Q6H [facility] Last Admin: 06/02/18 05:37 Dose: Not Given Hydromorphone HCl (Dilaudid) 0.5 mg IVP Q4H PRN PRN Reason: Pain, moderate (4-7) Last Admin: 06/05/18 07:29 Dose: 0.5 mg Heparin Sodium/Sodium Chloride (Heparin 09288 Units/250ml 1/2 Normal Saline) 25,000 units in 250 mls @ 16.248 mls/hr IV .[id number] PRN; Protocol PRN Reason: ADJUST RATE PER PROTOCOL Last Titration: 05/31/18 10:20 Dose: 0 units/kg/hr, 0 mls/hr Metronidazole (Flagyl) 500 mg in 100 mls @ 100 mls/hr IVPB Q8 [facility]; Protocol Last Admin: 06/05/18 06:03 Dose: 100 mls/hr Linezolid (Zyvox 600mg/300ml D5w) 600 mg in 300 mls @ 200 mls/hr IVPB Q12 [facility]; Protocol Stop: 06/08/18 13:31 Last Admin: 06/04/18 21:35 Dose: 200 mls/hr Aztreonam (Azactam 1 Gm) 100 mls @ 100 mls/hr IVPB Q12 [facility]; Protocol Stop: 06/09/18 22:01 Last Admin: 06/04/18 21:33 Dose: 100 mls/hr Insulin Human Lispro (Humalog High) 0 units SC ACHS [facility]; Protocol Last Admin: 06/05/18 07:59 Dose: Not Given Insulin Lispro Protam/Lispro Human (Humalog Mix 75/25) 10 units SC ACBD [facility] Last Admin: 06/04/18 18:41 Dose: Not Given Isosorbide Mononitrate (Imdur Er) 30 mg PO 0600 [facility] Last Admin: 06/03/18 05:08 Dose: Not Given Labetalol HCl (Trandate) 200 mg PO BID [facility] Last Admin: 06/02/18 09:34 Dose: Not Given Levalbuterol HCl (Xopenex) 1.25 mg IH [id number] [facility] Last Admin: 06/05/18 07:31 Dose: 1.25 mg Meclizine HCl (Antivert) 25 mg PO TID PRN PRN Reason: dizzy Last Admin: 05/30/18 11:26 Dose: 25 mg Metoprolol Tartrate (Lopressor) 50 mg PO Q12H [facility] Last Admin: 05/30/18 01:30 Dose: 50 mg Metoprolol Tartrate (Lopressor) 5 mg IVP Q6H [facility] Last Admin: 06/05/18 04:36 Dose: 5 mg Nitroglycerin (Nitro-Bid 2% Oint) 1 ea TOP Q8H [facility] Last Admin: 06/05/18 01:46 Dose: 1 ea Ondansetron HCl (Zofran Inj) 4 mg IVP Q6H PRN PRN Reason: Nausea/Vomiting Oxychlorosene Sodium (Clorpactin Wcs-90) 2 gm TOP DAILY [facility] Last Admin: 06/04/18 13:54 Dose: Not Given Pantoprazole Sodium (Protonix Inj) 40 mg IVP DAILY [facility] Last Admin: 06/04/18 13:59 Dose: 40 mg Simethicone (Mylicon Chew Tab) 80 mg PO PCHS PRN PRN Reason: GI distress Last Admin: 05/31/18 09:48 Dose: 80 mg - Labs Labs: 06/05/18 05:50 06/05/18 05:50 PT 23.6 SECONDS (9.4-12.5) H 06/02/18 10:05 INR 2.09 06/02/18 10:05 APTT 34.5 Seconds (26.9-38.3) 06/02/18 10:05 - Constitutional Appears: Non-toxic, No Acute Distress - Head Exam Head Exam: ATRAUMATIC, NORMOCEPHALIC - Eye Exam Eye Exam: EOMI - ENT Exam ENT Exam: Mucous Membranes Moist - Respiratory Exam Respiratory Exam: NORMAL BREATHING PATTERN - Cardiovascular Exam Cardiovascular Exam: +S1, +S2 - GI/Abdominal Exam GI & Abdominal Exam: Soft, Tenderness. absent: Guarding, Rigid Additional comments: Wound well aproximated dm in place, tender, non draining - Neurological Exam Neurological Exam: Alert, Awake - Psychiatric Exam Psychiatric exam: Normal Affect Assessment and Plan - Assessment and Plan (Free Text) Assessment: 67 y/o female s/p incarcerated ventral hernia surgery with small bowel resection and jejunocecal anastamosis for necrotic bowel. POD #3 Plan: -Advance to clears -NG clamped -pain control -monitor outputs - monitor bowel function -continue abx further recs per Dr. Petros Ortiz PGY3
[2018-06-05] MEDS: Aztreonam 1 Gm in NS 100mL 100 ML IVPB SCH ×2 (10:21→21:20)
[2018-06-05 10:44] LABS: ARTERIAL BLOOD GAS HCO3 15.1 mmol/L (21-28); ARTERIAL BLOOD GAS HEMOGLOBIN 8.2 g/dL (11.7-17.4); ARTERIAL BLOOD GAS O2 CAPACITY 11.2 mL/dl (16-24); ARTERIAL BLOOD GAS O2 CONTENT 10.8 ML/dl (15-23); ARTERIAL BLOOD GAS O2 SAT 96.2 % (95-98); ARTERIAL BLOOD GAS PCO2 30 mm/Hg (35-45); ARTERIAL BLOOD GAS PH 7.31 (7.35-7.45)
[2018-06-05] MEDS: Oxychlorosene Topical 2 gm Packet TOP SCH (11:00)
--- NOTE | 2018-06-05 11:20 | PN ---
DATE: 06/05/2018 SUBJECTIVE: The patient is seen lying in bed in the ICU. She is complaining of recurrent abdominal pain. She denies chest pain or dyspnea. CURRENT MEDICATIONS: Include; IV hydralazine, Azactam, Dilaudid, DuoNeb inhaler, Flagyl, subcutaneous heparin, Lasix 40 mg IV b.i.d., metoprolol 5 mg IV every 6 hours, topical nitrates and IV Protonix as well as Xopenex and Zyvox. OBJECTIVE: GENERAL: She is a middle-aged woman who appears moderately uncomfortable due to abdominal pain. VITAL SIGNS: Her blood pressure is 130/50 with pulse of 80 in atrial fibrillation and respirations 16. She is afebrile. HEENT: No JVD. She is on high flow oxygen. CHEST: Bilateral rhonchi heard anteriorly. HEART: PMI displaced laterally with a systolic murmur at the lower left sternal border. ABDOMEN: Soft, bowel sounds are absent, moderate right lower quadrant tenderness is present. EXTREMITIES: 1+ leg edema. Left foot is dressed. DIAGNOSTIC DATA: Potassium 4.4, BUN and creatinine 82 and 3.6. White count is 20.2, hemoglobin and hematocrit 8.4 and 26.3 and a platelet count of 217,000. Bilirubin is 2.3 and albumin is 2.5. IMPRESSION: 1. Abdominal pain, unclear if this is secondary to postoperative ileus or other cause. 2. Recent surgical repair of incarcerated incisional hernia. 3. Coronary artery disease status post remote percutaneous coronary intervention stable at present. 4. Contrast nephropathy with creatinine now plateauing at 3.6. 5. Postoperative anemia. 6. Peripheral vascular disease with gangrenous left second toe, awaits amputation. 7. Atrial fibrillation, currently on subcutaneous heparin and IV beta-ary. RECOMMENDATIONS: 1. Her current medications will be continued for now. Eventual resumption of full anticoagulation would be advisable once surgically cleared. 2. IV antihypertensive therapy will continue for now. 3. Consideration will need to be given to nutritional support if her postoperative ileus persists; her overall prognosis remains guarded at this time. We will continue to follow and make further recommendations as appropriate. Mauro Dowell MD [facility] # [id number]
--- NOTE | 2018-06-05 12:44 | CP.PCM.PN ---
Subjective - Date & Time of Evaluation Date of Evaluation: 06/05/18 Time of Evaluation: 10:35 - Subjective Subjective: Still with some abdominal discomfort, no fevers, still with left foot pain. Objective - Vital Signs/Intake and Output Vital Signs (last 24 hours): Temp Pulse Resp BP Pulse Ox 98.4 F 92 H 22 159/63 H 91 L 06/04/18 06:01 06/04/18 09:49 06/04/18 09:43 06/04/18 09:49 06/04/18 06:01 Intake and Output: 06/04/18 06/04/18 06:59 18:59 Intake Total 1200 Output Total 1220 Balance -20 - Medications Medications: Current Medications Acetaminophen (Tylenol 325mg Tab) 650 mg PO Q6H PRN PRN Reason: Fever >100.4 F Last Admin: 05/30/18 01:30 Dose: 650 mg Albuterol/Ipratropium (Duoneb 3 Mg/0.5 Mg (3 Ml) Ud) 3 ml IH Q2H PRN PRN Reason: Shortness of Breath Amlodipine Besylate (Norvasc) 10 mg PO DAILY [facility] Last Admin: 06/02/18 09:34 Dose: Not Given Aspirin (Aspirin Chewable) 81 mg PO DAILY [facility] Last Admin: 06/03/18 10:46 Dose: 81 mg Atorvastatin Calcium (Lipitor) 40 mg PO QOTHERDAY [facility] Last Admin: 06/02/18 09:33 Dose: Not Given Clonidine HCl (Catapres) 0.3 mg PO TID [facility] Last Admin: 06/03/18 10:50 Dose: Not Given Dextrose (Dextrose 50% Inj) 50 ml IVP ONCE PRN PRN Reason: Hypoglycemia Heparin Sodium (Porcine) (Heparin) 5,000 units SC Q8 [facility]; Protocol Last Admin: 06/04/18 05:25 Dose: 5,000 units Hydralazine HCl (Apresoline) 10 mg IV Q6H PRN PRN Reason: Systolic Blood Pressure Last Admin: 06/04/18 01:05 Dose: 10 mg Hydralazine HCl (Apresoline) 25 mg PO Q6H [facility] Last Admin: 06/02/18 05:37 Dose: Not Given Hydromorphone HCl (Dilaudid) 0.5 mg IVP Q4H PRN PRN Reason: Pain, moderate (4-7) Last Admin: 06/04/18 09:26 Dose: 0.5 mg Heparin Sodium/Sodium Chloride (Heparin 83083 Units/250ml 1/2 Normal Saline) 25,000 units in 250 mls @ 16.248 mls/hr IV .[id number] PRN; Protocol PRN Reason: ADJUST RATE PER PROTOCOL Last Titration: 05/31/18 10:20 Dose: 0 units/kg/hr, 0 mls/hr Metronidazole (Flagyl) 500 mg in 100 mls @ 100 mls/hr IVPB Q8 [facility]; Protocol Last Admin: 06/04/18 05:24 Dose: 100 mls/hr Linezolid (Zyvox 600mg/300ml D5w) 600 mg in 300 mls @ 200 mls/hr IVPB Q12 [facility]; Protocol Stop: 06/08/18 13:31 Last Admin: 06/04/18 09:27 Dose: 200 mls/hr Aztreonam (Azactam 1 Gm) 100 mls @ 100 mls/hr IVPB Q12 [facility]; Protocol Stop: 06/09/18 22:01 Last Admin: 06/04/18 09:26 Dose: 100 mls/hr Insulin Human Lispro (Humalog High) 0 units SC ACHS [facility]; Protocol Last Admin: 06/04/18 09:04 Dose: Not Given Insulin Lispro Protam/Lispro Human (Humalog Mix 75/25) 10 units SC ACBD [facility] Last Admin: 06/04/18 09:08 Dose: Not Given Isosorbide Mononitrate (Imdur Er) 30 mg PO 0600 [facility] Last Admin: 06/03/18 05:08 Dose: Not Given Labetalol HCl (Trandate) 200 mg PO BID [facility] Last Admin: 06/02/18 09:34 Dose: Not Given Levalbuterol HCl (Xopenex) 1.25 mg IH [id number] [facility] Last Admin: 06/04/18 07:16 Dose: 1.25 mg Meclizine HCl (Antivert) 25 mg PO TID PRN PRN Reason: dizzy Last Admin: 05/30/18 11:26 Dose: 25 mg Metoprolol Tartrate (Lopressor) 50 mg PO Q12H [facility] Last Admin: 05/30/18 01:30 Dose: 50 mg Metoprolol Tartrate (Lopressor) 5 mg IVP Q6H [facility] Last Admin: 06/04/18 09:49 Dose: 5 mg Nitroglycerin (Nitro-Bid 2% Oint) 1 ea TOP Q8H [facility] Last Admin: 06/04/18 09:49 Dose: 1 ea Ondansetron HCl (Zofran Inj) 4 mg IVP Q6H PRN PRN Reason: Nausea/Vomiting Oxychlorosene Sodium (Clorpactin Wcs-90) 2 gm TOP DAILY [facility] Last Admin: 06/03/18 10:45 Dose: 2 gm Pantoprazole Sodium (Protonix Inj) 40 mg IVP DAILY [facility] Last Admin: 06/03/18 10:45 Dose: 40 mg Silver Sulfadiazine (Silvadene 1% 25 Gm) 0 gm TP BID [facility] Last Admin: 06/03/18 10:49 Dose: 25 gm Simethicone (Mylicon Chew Tab) 80 mg PO HS PRN PRN Reason: GI distress Last Admin: 05/31/18 09:48 Dose: 80 mg - Labs Labs: 06/04/18 06:10 06/04/18 06:10 PT 23.6 SECONDS (9.4-12.5) H 06/02/18 10:05 INR 2.09 06/02/18 10:05 APTT 34.5 Seconds (26.9-38.3) 06/02/18 10:05 - Constitutional Appears: Chronically Ill - Head Exam Head Exam: NORMAL INSPECTION - ENT Exam Additional comments: NGT in place - Neck Exam Neck Exam: absent: Meningismus - Respiratory Exam Respiratory Exam: Decreased Breath Sounds - Cardiovascular Exam Cardiovascular Exam: +S1, +S2 - GI/Abdominal Exam GI & Abdominal Exam: Soft. absent: Tenderness Additional comments: dry dressings and abdominal drain in place Assessment and Plan - Assessment and Plan (Free Text) Plan: Assessment sepsis due to left 2nd toe gangrene with distal phalanx osteomyelitis and now with purulent skin and skin structure infection S/P bedside I and 06/01/2018, in this patient with probable peripheral vascular disease, went for angioplasty 05/27/2018, as well as incarcerated abdominal hernia S/P ex-lap jejunocecal anastomosis, small bowel resection, appendectomy, POD #23 history of right leg skin and skin structure infection - patient has had a history of infection in the same leg with fasciotomy, I and D and debridement in September 2014 HTN DM history of left knee surgery history of shoulder surgery Atrial fibrillation history of CVA Plan discussed with Podiatry Dr. Kim - bedside I and D 3 days ago - the cultures only yielded Corynebacterium which are contaminants - will have foot surgery next week continue Zyvox and Azactam and Flagyl and will continue to monitor clinically, trend WBC count patient continue to be critically-ill
[2018-06-05] MEDS: Linezolid 600 mg in D5W 300 ml 600 MG/300 ML BAG IVPB SCH ×2 (14:40→21:19)
--- NOTE | 2018-06-05 14:46 | PN ---
DATE: 06/05/2018 SUBJECTIVE: The patient is 67 years old, seen and examined, lying in bed, seems to be comfortable. She still has nasogastric suction, but hopefully awake and alert. OBJECTIVE: VITAL SIGNS: She is afebrile, pulse 95, respirations 18, blood pressure 175/59. LUNGS: Bilateral fair airflow. No rhonchi or crackles. HEART: S1, S2, audible. ABDOMEN: Soft, palpable discomfort at surgical site. NEUROLOGICAL: She is awake and alert, able to communicate. LABORATORY DATA: WBC is 20.2, hemoglobin 8.4, hematocrit 26.3, platelets 217. PT 23.6, INR 2.09. Chemistry: Sodium 141, potassium 4.4, chloride 112, CO2 of 19, BUN 82, creatinine 3.6, blood sugar is 154. Foot is growing Corynebacterium species. ASSESSMENT: 1. Status post partial small-bowel obstruction, status post laparotomy and partial small bowel resection with cecectomy and appendectomy. 2. Congestive heart failure. 3. Insulin-dependent diabetes. 4. Peripheral vascular disease. 5. Left second and third toe gangrene, second one is dry and third one is getting purplish. 6. Status post ventral hernia repair. 7. Status post jejunocecal anastomosis. PLAN: Surgical input noted and appreciated. Nasogastric tube has been planned. She is advanced to clear diet. Continue her on current antibiotic, that is Zyvox. She is on DVT prophylaxis. She is on Flagyl. Local wound care is being done by Dr. Kim. We will also continue her Azactam as recommended by Infectious Disease. We will be checking her CBC and CMP intermittently. Jason Laws MD
--- NOTE | 2018-06-05 15:08 | RAD ---
Date of service: 06/05/2018 HISTORY: sob COMPARISON: 06/04/2018 FINDINGS: LUNGS: New large right lower lobe infiltrate. PLEURA: No significant pleural effusion identified, no pneumothorax apparent. CARDIOVASCULAR: No aortic atherosclerotic calcification present. Mild cardiomegaly mild vascular congestion OSSEOUS STRUCTURES: No significant abnormalities. VISUALIZED UPPER ABDOMEN: Nasogastric tube in satisfactory position OTHER FINDINGS: None. IMPRESSION: New large right lower lobe infiltrate
[2018-06-05 17:06] LABS: ARTERIAL BLOOD GAS HCO3 16.2 mmol/L (21-28); ARTERIAL BLOOD GAS HEMOGLOBIN 8.1 g/dL (11.7-17.4); ARTERIAL BLOOD GAS O2 CAPACITY 11.4 mL/dl (16-24); ARTERIAL BLOOD GAS O2 CONTENT 11.4 ML/dl (15-23); ARTERIAL BLOOD GAS O2 SAT 99.8 % (95-98); ARTERIAL BLOOD GAS PCO2 33 mm/Hg (35-45); ARTERIAL BLOOD GAS TCO2 17.2 mmol.L (22-28)
[2018-06-06] MEDS: HYDROmorphone 0.5 mg/0.5 ml ISec IVP PRN ×3 (02:00→20:13)
[2018-06-06] MEDS: Levalbuterol 1.25 MG/3 ML Inhal Soln UD IH SCH ×4 (02:15→19:35)
[2018-06-06] MEDS ORDERED: HYDROmorphone 0.5 mg/0.5 ml ISec IVP STA (03:24)
--- NOTE | 2018-06-06 05:38 | CP.PCM.PN ---
Subjective - Date & Time of Evaluation Date of Evaluation: 06/06/18 Time of Evaluation: 05:37 - Subjective Subjective: Patient was seen for agitation. This 67 year old woman was admitted with worsening wound of gangrenous left second toe. Has PMH of HTN, chronic atrial fibrillation, IDDM,UTI, CAD, PVD, cellulitis. Objective - Vital Signs/Intake and Output Vital Signs (last 24 hours): Temp Pulse Resp BP Pulse Ox 98.2 F 90 19 111/70 98 06/04/18 10:01 06/05/18 18:44 06/05/18 16:01 06/05/18 21:47 06/05/18 16:01 Intake and Output: 06/05/18 06/06/18 18:59 06:59 Intake Total 650 Output Total 740 Balance -90 - Medications Medications: Current Medications Acetaminophen (Tylenol 325mg Tab) 650 mg PO Q6H PRN PRN Reason: Fever >100.4 F Last Admin: 05/30/18 01:30 Dose: 650 mg Albuterol/Ipratropium (Duoneb 3 Mg/0.5 Mg (3 Ml) Ud) 3 ml IH Q2H PRN PRN Reason: Shortness of Breath Amlodipine Besylate (Norvasc) 10 mg PO DAILY [facility] Last Admin: 06/02/18 09:34 Dose: Not Given Aspirin (Aspirin Chewable) 81 mg PO DAILY [facility] Last Admin: 06/05/18 10:23 Dose: 81 mg Atorvastatin Calcium (Lipitor) 40 mg PO QOTHERDAY [facility] Last Admin: 06/04/18 13:54 Dose: Not Given Clonidine HCl (Catapres) 0.3 mg PO TID [facility] Last Admin: 06/03/18 10:50 Dose: Not Given Dextrose (Dextrose 50% Inj) 50 ml IVP ONCE PRN PRN Reason: Hypoglycemia Furosemide (Lasix) 40 mg IVP Q12 [facility] Last Admin: 06/05/18 21:47 Dose: 40 mg Heparin Sodium (Porcine) (Heparin) 5,000 units SC Q8 [facility]; Protocol Last Admin: 06/05/18 21:48 Dose: 5,000 units Hydralazine HCl (Apresoline) 10 mg IV Q6H PRN PRN Reason: Systolic Blood Pressure Last Admin: 06/04/18 01:05 Dose: 10 mg Hydralazine HCl (Apresoline) 25 mg PO Q6H [facility] Last Admin: 06/02/18 05:37 Dose: Not Given Hydromorphone HCl (Dilaudid) 0.5 mg IVP Q4H PRN PRN Reason: Pain, moderate (4-7) Last Admin: 06/06/18 02:00 Dose: 0.5 mg Heparin Sodium/Sodium Chloride (Heparin 15158 Units/250ml 1/2 Normal Saline) 25,000 units in 250 mls @ 16.248 mls/hr IV .[id number] PRN; Protocol PRN Reason: ADJUST RATE PER PROTOCOL Last Titration: 05/31/18 10:20 Dose: 0 units/kg/hr, 0 mls/hr Metronidazole (Flagyl) 500 mg in 100 mls @ 100 mls/hr IVPB Q8 [facility]; Protocol Last Admin: 06/05/18 21:19 Dose: 100 mls/hr Linezolid (Zyvox 600mg/300ml D5w) 600 mg in 300 mls @ 200 mls/hr IVPB Q12 [facility]; Protocol Stop: 06/08/18 13:31 Last Admin: 06/05/18 21:19 Dose: 200 mls/hr Aztreonam (Azactam 1 Gm) 100 mls @ 100 mls/hr IVPB Q12 [facility]; Protocol Stop: 06/09/18 22:01 Last Admin: 06/05/18 21:20 Dose: 100 mls/hr Insulin Human Lispro (Humalog High) 0 units SC ACHS [facility]; Protocol Last Admin: 06/05/18 18:34 Dose: 4 units Insulin Lispro Protam/Lispro Human (Humalog Mix 75/25) 10 units SC ACBD [facility] Last Admin: 06/05/18 07:00 Dose: Not Given Isosorbide Mononitrate (Imdur Er) 30 mg PO 0600 [facility] Last Admin: 06/03/18 05:08 Dose: Not Given Labetalol HCl (Trandate) 200 mg PO BID [facility] Last Admin: 06/02/18 09:34 Dose: Not Given Levalbuterol HCl (Xopenex) 1.25 mg IH [id number] [facility] Last Admin: 06/06/18 02:15 Dose: 1.25 mg Metoprolol Tartrate (Lopressor) 50 mg PO Q12H [facility] Last Admin: 05/30/18 01:30 Dose: 50 mg Metoprolol Tartrate (Lopressor) 5 mg IVP Q6H [facility] Last Admin: 06/05/18 22:45 Dose: 5 mg Nitroglycerin (Nitro-Bid 2% Oint) 1 ea TOP Q8H [facility] Last Admin: 06/05/18 18:49 Dose: 1 ea Ondansetron HCl (Zofran Inj) 4 mg IVP Q6H PRN PRN Reason: Nausea/Vomiting Oxychlorosene Sodium (Clorpactin Wcs-90) 2 gm TOP DAILY [facility] Last Admin: 06/05/18 11:00 Dose: 2 gm Pantoprazole Sodium (Protonix Inj) 40 mg IVP DAILY [facility] Last Admin: 06/05/18 10:00 Dose: 40 mg Simethicone (Mylicon Chew Tab) 80 mg PO PCHS PRN PRN Reason: GI distress Last Admin: 05/31/18 09:48 Dose: 80 mg - Labs Labs: 06/05/18 05:50 06/05/18 05:50 PT 23.6 SECONDS (9.4-12.5) H 06/02/18 10:05 INR 2.09 06/02/18 10:05 APTT 34.5 Seconds (26.9-38.3) 06/02/18 10:05 - Constitutional Appears: Well, No Acute Distress - Head Exam Head Exam: ATRAUMATIC, NORMAL INSPECTION, NORMOCEPHALIC - Eye Exam Eye Exam: Normal appearance - ENT Exam ENT Exam: Normal External Ear Exam - Neck Exam Neck Exam: Normal Inspection - Respiratory Exam Respiratory Exam: NORMAL BREATHING PATTERN - Cardiovascular Exam Cardiovascular Exam: absent: JVD - GI/Abdominal Exam GI & Abdominal Exam: absent: Distended - Rectal Exam Rectal Exam: Deferred - Exam Additional comments: Deferred. - Extremities Exam Extremities Exam: Normal Inspection - Back Exam Back Exam: NORMAL INSPECTION - Neurological Exam Neurological Exam: Alert, Awake - Psychiatric Exam Psychiatric exam: Agitated - Skin Skin Exam: Normal Color Assessment and Plan - Assessment and Plan (Free Text) Assessment: Agitation. Hypertension. Chronic atrial fibrillation. IDDM. UTI. CAD. PVD. Cellulitis. Plan: Ativan 0.5 mg IV x1. Continue present management.
[2018-06-06 06:04] LABS: BASO # 0.01 K/mm3 (0.0-2.0); EOS % 0.2 % (1.5-5.0); HEMOGLOBIN 8.3 g/dL (12.0-16.0); LYMPH # 0.4 (1.2-3.4); LYMPH % 1.6 % (22.0-35.0); MEAN CELL VOLUME 84.1 fl (80.0-105.0); MEAN CORPUSCULAR HEMOGLOBIN 26.4 pg (25.0-35.0); MEAN CORPUSCULAR HGB CONC 31.4 g/dl (31.0-37.0); MEAN PLATELET VOLUME 9.2 fl (7.0-11.0); MONO % 3.8 % (1.0-6.0); PLATELET COUNT 219 10^3/uL (120.0-450.0); RBC 3.14 10^6/uL (3.5-6.1); RED CELL DISTRIBUTION WIDTH 18.4 % (11.5-14.5); WHITE BLOOD COUNT 24.9 10^3/uL (4.5-11.0)
[2018-06-06] MEDS: Nitroglycerin 2% Ointment Foilpak UD TOP SCH ×3 (06:05→18:49)
[2018-06-06] MEDS: metroNIDAZOLE IV 500 mg/100 ml 500 MG/100 ML BAG IVPB SCH ×3 (06:05→21:19)
[2018-06-06] MEDS: Metoprolol 1 mg/ml Inj IVP SCH ×4 (06:06→23:03)
[2018-06-06] MEDS: Insulin Lispro (HUMAlog) HIGH Coverage SC SCH ×5 (06:06→22:00)
[2018-06-06 06:33] LABS: ALB/GLOB RATIO 0.8 (1.1-1.8); ALBUMIN 2.5 g/dL (3.0-4.8); CALCIUM 7.9 mg/dL (8.4-10.5)
[2018-06-06 06:35] LABS: ARTERIAL BLOOD GAS HCO3 26.8 mmol/L (21-28); ARTERIAL BLOOD GAS HEMOGLOBIN 8.6 g/dL (11.7-17.4); ARTERIAL BLOOD GAS O2 SAT 99.8 % (95-98); ARTERIAL BLOOD GAS PCO2 52 mm/Hg (35-45); ARTERIAL BLOOD GAS PH 7.32 (7.35-7.45); ARTERIAL BLOOD GAS TCO2 28.4 mmol.L (22-28)
[2018-06-06] MEDS: Insulin Lispro (humaLOG) MIX 75/25(10 ml) SC SCH ×2 (08:45→16:45)
--- NOTE | 2018-06-06 08:51 | RAD ---
Date of service: 06/06/2018 HISTORY: eval COMPARISON: No prior. FINDINGS: LUNGS: Slight improvement in right-sided infiltrate. PLEURA: Possible right-sided effusion CARDIOVASCULAR: No aortic atherosclerotic calcification present. Mild cardiomegaly no pulmonary vascular congestion. OSSEOUS STRUCTURES: No significant abnormalities. VISUALIZED UPPER ABDOMEN: Nasogastric tube in satisfactory position OTHER FINDINGS: None. IMPRESSION: Slight improvement in right-sided infiltrate
[2018-06-06] MEDS: Aztreonam 1 Gm in NS 100mL 100 ML IVPB SCH ×2 (10:19→22:13)
[2018-06-06] MEDS: Linezolid 600 mg in D5W 300 ml 600 MG/300 ML BAG IVPB SCH ×2 (10:21→22:53)
[2018-06-06] MEDS: Oxychlorosene Topical 2 gm Packet TOP SCH (10:46)
[2018-06-06 10:48] LABS: BAND 5 % (0-2); LYMPHOCYTE 3 % (22.0-35.0); MONOCYTE 2 % (1.0-6.0); NEUTROPHIL 90 % (50.0-70.0)
[2018-06-06 10:49] LABS: ANISOCYTOSIS 2+; BURR CELLS SLIGHT; HYPOCHROMIA 2+; MICROCYTOSIS SLIGHT; OVALOCYTES SLIGHT; PLATELET ESTIMATE NORMAL (NORMAL); POIKILOCYTOSIS 1+; POLYCHROMASIA SLIGHT; TOXIC GRANULATION SLIGHT
[2018-06-06] MEDS ORDERED: Sodium Chloride 0.9% 1,000 ML IV STA (11:27)
--- NOTE | 2018-06-06 12:03 | PN ---
DATE: 06/06/2018 LOCATION: The patient is seen in room 128, bed 5. SUBJECTIVE: The patient is comfortable with no fevers, no chills. Had an uneventful night. OBJECTIVE: VITAL SIGNS: on exam, temperature is 98, blood pressure is 170/60, heart rate of 94, respiratory rate of 18. HEENT: Unremarkable. NECK: Supple. LUNGS: Have decreased breath sounds. HEART: Normal S1 and S2. ABDOMEN: Soft, nontender. LABORATORY DATA: Reveals the patient's white count is up to 24,000, hemoglobin of 8, platelets of 219. Coagulation is noted. Chemistries reveals a BUN of 3.3. Urinalysis is noted and random vanco level of 19 is noted. Microbiology reveals corynebacterium from the foot. The urine culture is negative. Nasal MRSA is negative. Blood cultures are negative. The patient's chest x-ray from today is reviewed, slight improvement in right-sided infiltrate. ASSESSMENT AND PLAN: This is a 67-year-old female with sepsis due to left second toe gangrene and distal phalanx osteomyelitis with purulent skin and skin structure infection, status post bedside incision and drainage on June 01, 2018 with peripheral vascular disease, angioplasty in April 2018 as well as incarcerated abdominal hernia, status post exploratory laparotomy jejunocecal anastomosis and small bowel resection, appendectomy, postprocedure day #24 with history of hypertension, diabetes, cerebrovascular accident, atrial fibrillation. Today, is 4th day after incision and drainage and corynebacterium, probably a colonizer, currently on Zyvox, Azactam and Flagyl. Review of orders reveals Azactam is active, Flagyl requires renewal and I will renew it, the patient's Zyvox requires renewal and I will also renew it. The patient's increase in WBC is concerning. We will check on the white count in the morning. If persistent, we will repeat chang cultures, if there is any diarrhea reported with stool, we will order stool Clostridium difficile colitis. Currently, we will continue present course. Yemi Aguilar MD
--- NOTE | 2018-06-06 13:23 | PN ---
DATE: 06/06/2018 SUBJECTIVE: The patient is 67 years old, seen and examined, lying in bed. Last night event noted, the patient went into respiratory distress. She was started on BiPAP, doing well. She is sleepy, but arousable. Nasogastric tube still in place, has and has concentrated tea-colored urine. PHYSICAL EXAMINATION VITAL SIGNS: She is afebrile, pulse 103, respirations 18, blood pressure 162/61. LUNGS: Bilateral fair airflow. No rhonchi or crackles. breath sounds at bases. HEART: S1 and S2 audible. ABDOMEN: Soft, obese and nontender. No rebound. No guarding. NEUROLOGIC: She is sleepy, but arousable, has BiPAP on. EXTREMITIES: Bilateral legs, +2 edema. LABORATORY DATA: WBC is 24.9, hemoglobin 8.3, hematocrit 26.4, and platelet is 219. Chemistry: Sodium 141, potassium 4.6, chloride 113, CO2 of 19, BUN 85, creatinine 3.3, blood sugar of 169. ASSESSMENT AND PLAN 1. Status post partial small-bowel obstruction, status post cecectomy, status post appendectomy, status post jejunocecal anastomosis. 2. Ventral hernia repair. 3. Insulin-dependent diabetes. 4. Hypertension. 5. Peripheral vascular disease. 6. Left second and third toe gangrene, second has dry gangrene and third toe is purplish. The patient had x-ray chest done that shows slight improvement of right-sided infiltrate. PLAN: Currently, the patient is on hydralazine 25 mg every 6 hours, aspirin 81 mg daily. She is on Azactam. She is on analgesics. She is on metronidazole, heparin every 8 hours for DVT prophylaxis. Her blood sugar is being monitored. Continue on Zyvox, monitor her platelets. We will followup the patient in a.m. Foot surgery has been on hold for now. Jason Laws MD
--- NOTE | 2018-06-06 14:02 | PN ---
DATE: 06/06/2018 SUBJECTIVE: This 67-year-old female seen at bedside in ICU for continued evaluation and management of a gangrenous left second digit with underlying abscess formation. There are now gangrenous changes to the first and third digit as well. She is intubated but is able to answer simple questions. PHYSICAL EXAMINATION: VITAL SIGNS: Temperature of 99.1, pulse rate of 103, blood pressure of 162/61, respiratory rate of 18. LABORATORY FINDINGS: Her white count continues to climb to 24.9 up from 20.2 yesterday. However, the source of the infection is not from her foot. Her hemoglobin is 8.3, hematocrit 26.4, platelet count 219. Microbiology report of her right foot reveals Corynebacterium species. OBJECTIVE: Nonpalpable pedal pulses noted bilaterally. Capillary filling time is delayed x9 and absent on the left second digit. There is noted to be cherelle gangrene of the entire left second digit with an open wound at the base of the left second metatarsophalangeal joint. There is noted to be no purulence emanating at this time from the wound. However, there is serosanguineous fluid, there is gangrenous patch of skin under the second and third digits There is noted to be bluish discoloration and impending ischemia of the first and third digits with slight discoloration of the entire forefoot indicating impending ischemia. ASSESSMENT: A 67-year-old insulin-dependent diabetic female with left second digit cherelle gangrene with accompanying underlying abscess formation of the left second metatarsophalangeal joint as well as impending ischemia of the forefoot. PLAN: The patient was seen and evaluated. Her wound dressing was changed and the wound was flushed with Clorpactin solution. A small amount of sterile iodoform packing was placed in the incision site with a dry sterile dressing and Betadine application. Spoke with Dr. Laws and Dr. Morrell at length regarding case. At this point in time, the patient has to be stabilized from a medical point of view before any distal surgical intervention can be performed. We will continue with local wound care and the flushing and dressing changes daily and plan on transmetatarsal amputation towards the end of the coming week. We will await . Gil Kim DPM
[2018-06-06 14:14] LABS: ARTERIAL BLOOD GAS HCO3 16.9 mmol/L (21-28); ARTERIAL BLOOD GAS HEMOGLOBIN 8.2 g/dL (11.7-17.4); ARTERIAL BLOOD GAS O2 CAPACITY 11.3 mL/dl (16-24); ARTERIAL BLOOD GAS O2 CONTENT 11.1 ML/dl (15-23); ARTERIAL BLOOD GAS O2 SAT 98.2 % (95-98); ARTERIAL BLOOD GAS PCO2 32 mm/Hg (35-45); ARTERIAL BLOOD GAS PH 7.33 (7.35-7.45); ARTERIAL BLOOD GAS TCO2 17.9 mmol.L (22-28)
--- NOTE | 2018-06-06 15:02 | PN ---
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 She still requires BiPAP and its setting is 14/7. The patient is noted to have pneumonia with respiratory insufficiency. She is still n.p.o. post surgery. PHYSICAL EXAMINATION: VITAL SIGNS: Note that she has a temperature of 98, pulse of 103, respirations are 18, and BP is 174/63, and O2 saturation is 98%. HEENT: Atraumatic and normocephalic. Eyes reactive to light. Ears, nose, and throat seem to be within normal limits. NECK: Supple. No JVD. No thyroid enlargement. No lymph nodes. HEART: Regular rate and rhythm. Normal S1 and S2. LUNGS: Reveal fairly good breath sounds bilaterally. ABDOMEN: Soft and tender. GENITALIA: Deferred. RECTAL: Deferred. MUSCULOSKELETAL: No joint deformities. EXTREMITIES: Revealed trace lower extremity edema. NEUROLOGIC: She is awake and responds appropriately. Moving all extremities. LABORATORY DATA: As far as her laboratories are concerned, her white count is 24.9, hemoglobin is 8.9, hematocrit is 26.4 with platelets of 219,000. Arterial blood gas is 7.32, PCO2 of 52, PO2 of 151. Sodium is 141, potassium 4.6, chloride 113, CO2 of 19 with a BUN of 85, creatinine of 3.3, and glucose of 169. IMPRESSION: This patient has right lower lobe pneumonia with pleural effusion. She has gangrenous toes on the left foot and she is status post partial small bowel obstruction and partial small bowel resection. The patient had a history of ventral hernia. She also carries a diagnosis of anemia, congestive heart failure, and diabetes. PLAN: We will continue with aggressive pulmonary toilet. Continue with the BiPAP. Follow her arterial blood gases closely. We will follow her chest x-ray and continue with her hydralazine, her aspirin, Azactam. The patient is getting DuoNeb as well as her heparin subcu. She is on her insulin as well as her Lasix and Lipitor. The patient is getting Lopressor and nitroglycerin as well as Tylenol. We will continue to treat aggressively along with the other benefits sales consultant and primary care doctor. Carlos Keenan MD [facility] # [id number]
--- NOTE | 2018-06-06 18:54 | CP.PCM.PN ---
Subjective - Date & Time of Evaluation Date of Evaluation: 06/07/18 Time of Evaluation: 16:05 - Subjective Subjective: Surgery Progress note. Dr. Morrell. Pt seen and examined at bedside. Has been on BiPAP for respiratory distress. Denies any fevers or chills. No N/V/D. As per nursing report, has had 2 BMs yesterday night. NGT in place and clamped. Cleared to use NGT for tube feeds while PT needs BiPAP due to increased risk of aspiration. Blakes in place with 100cc out left and 40cc out right, serrosang. Objective - Vital Signs/Intake and Output Vital Signs (last 24 hours): Temp Pulse Resp BP Pulse Ox 97.1 F L 107 H 21 147/50 L 95 06/06/18 15:46 06/06/18 16:48 06/06/18 17:07 06/06/18 16:48 06/06/18 15:01 Intake and Output: 06/06/18 06/06/18 06:59 18:59 Intake Total 300 Output Total 520 Balance -220 - Medications Medications: Current Medications Acetaminophen (Tylenol 325mg Tab) 650 mg PO Q6H PRN PRN Reason: Fever >100.4 F Last Admin: 05/30/18 01:30 Dose: 650 mg Albuterol/Ipratropium (Duoneb 3 Mg/0.5 Mg (3 Ml) Ud) 3 ml IH Q2H PRN PRN Reason: Shortness of Breath Amlodipine Besylate (Norvasc) 10 mg PO DAILY [facility] Last Admin: 06/02/18 09:34 Dose: Not Given Aspirin (Aspirin Chewable) 81 mg PO DAILY [facility] Last Admin: 06/06/18 10:19 Dose: 81 mg Atorvastatin Calcium (Lipitor) 40 mg PO QOTHERDAY [facility] Last Admin: 06/06/18 10:19 Dose: 40 mg Clonidine HCl (Catapres) 0.3 mg PO TID [facility] Last Admin: 06/03/18 10:50 Dose: Not Given Dextrose (Dextrose 50% Inj) 50 ml IVP ONCE PRN PRN Reason: Hypoglycemia Furosemide (Lasix) 40 mg IVP Q12 [facility] Last Admin: 06/06/18 10:19 Dose: 40 mg Heparin Sodium (Porcine) (Heparin) 5,000 units SC Q8 [facility]; Protocol Last Admin: 06/06/18 14:30 Dose: 5,000 units Hydralazine HCl (Apresoline) 10 mg IV Q6H PRN PRN Reason: Systolic Blood Pressure Last Admin: 06/06/18 08:49 Dose: 10 mg Hydralazine HCl (Apresoline) 25 mg PO Q6H [facility] Last Admin: 06/02/18 05:37 Dose: Not Given Hydromorphone HCl (Dilaudid) 0.5 mg IVP Q4H PRN PRN Reason: Pain, moderate (4-7) Last Admin: 06/06/18 09:05 Dose: 0.5 mg Heparin Sodium/Sodium Chloride (Heparin 42939 Units/250ml 1/2 Normal Saline) 25,000 units in 250 mls @ 16.248 mls/hr IV .[id number] PRN; Protocol PRN Reason: ADJUST RATE PER PROTOCOL Last Titration: 05/31/18 10:20 Dose: 0 units/kg/hr, 0 mls/hr Metronidazole (Flagyl) 500 mg in 100 mls @ 100 mls/hr IVPB Q8 [facility]; Protocol Last Admin: 06/06/18 14:30 Dose: 100 mls/hr Linezolid (Zyvox 600mg/300ml D5w) 600 mg in 300 mls @ 200 mls/hr IVPB Q12 [facility]; Protocol Stop: 06/08/18 13:31 Last Admin: 06/06/18 10:21 Dose: 200 mls/hr Aztreonam (Azactam 1 Gm) 100 mls @ 100 mls/hr IVPB Q12 [facility]; Protocol Stop: 06/09/18 22:01 Last Admin: 06/06/18 10:19 Dose: 100 mls/hr Insulin Human Lispro (Humalog High) 0 units SC ACHS [facility]; Protocol Last Admin: 06/06/18 16:45 Dose: Not Given Insulin Lispro Protam/Lispro Human (Humalog Mix 75/25) 10 units SC ACBD [facility] Last Admin: 06/06/18 16:45 Dose: Not Given Isosorbide Mononitrate (Imdur Er) 30 mg PO 0600 [facility] Last Admin: 06/03/18 05:08 Dose: Not Given Labetalol HCl (Trandate) 200 mg PO BID [facility] Last Admin: 06/02/18 09:34 Dose: Not Given Levalbuterol HCl (Xopenex) 1.25 mg IH [id number] [facility] Last Admin: 06/06/18 13:20 Dose: 1.25 mg Metoprolol Tartrate (Lopressor) 50 mg PO Q12H [facility] Last Admin: 05/30/18 01:30 Dose: 50 mg Metoprolol Tartrate (Lopressor) 5 mg IVP Q6H [facility] Last Admin: 06/06/18 16:48 Dose: 5 mg Nitroglycerin (Nitro-Bid 2% Oint) 1 ea TOP Q8H [facility] Last Admin: 06/06/18 18:49 Dose: 1 ea Ondansetron HCl (Zofran Inj) 4 mg IVP Q6H PRN PRN Reason: Nausea/Vomiting Oxychlorosene Sodium (Clorpactin Wcs-90) 2 gm TOP DAILY [facility] Last Admin: 06/06/18 10:46 Dose: 2 gm Pantoprazole Sodium (Protonix Inj) 40 mg IVP DAILY [facility] Last Admin: 06/06/18 10:20 Dose: 40 mg Simethicone (Mylicon Chew Tab) 80 mg PO HS PRN PRN Reason: GI distress Last Admin: 05/31/18 09:48 Dose: 80 mg - Labs Labs: 06/06/18 05:00 06/06/18 05:00 PT 23.6 SECONDS (9.4-12.5) H 06/02/18 10:05 INR 2.09 06/02/18 10:05 APTT 34.5 Seconds (26.9-38.3) 06/02/18 10:05 - Constitutional Appears: Non-toxic, No Acute Distress, Chronically Ill - Head Exam Head Exam: ATRAUMATIC, NORMAL INSPECTION, NORMOCEPHALIC - Eye Exam Eye Exam: EOMI, Normal appearance. absent: Scleral icterus - ENT Exam ENT Exam: Mucous Membranes Moist - Respiratory Exam Respiratory Exam: NORMAL BREATHING PATTERN. absent: Accessory Muscle Use - Cardiovascular Exam Cardiovascular Exam: Tachycardia. absent: JVD - GI/Abdominal Exam GI & Abdominal Exam: absent: Distended, Firm, Rebound Additional comments: midline incision clean, dry and intact with dm. Alejandro drains x2 in place. Mild Periincisional tenderness to palpation - Extremities Exam Extremities Exam: Pedal Edema - Neurological Exam Neurological Exam: Alert, Awake Assessment and Plan - Assessment and Plan (Free Text) Assessment: 67 yo F s/p strangulated ventral hernia repair w small bowel resection, jejunocecal anastamosis and primary closure. POD 4 Plan: - Okay to use NGT for tube feeds while on BiPAP due aspiration risk and respiratory distress - monitor bowel function - Continue drain management - Strict Is and Os - Continue Abx as per ID Further recs as per Dr. Petros Campoverde PGY2 surgery
--- NOTE | 2018-06-06 18:57 | PN ---
DATE: 06/06/2018 SUBJECTIVE: The patient is seen lying in bed in the ICU. She remains on BiPAP overnight. She denies any abdominal discomfort. She has no chest pain. CURRENT MEDICATIONS: Include IV hydralazine, aspirin, Azactam, Dilaudid, DuoNeb inhaler, Flagyl, subcutaneous heparin, Lasix 40 mg IV every 12 hours, Lipitor, topical nitrates, and IV Protonix. OBJECTIVE: GENERAL: She is a overweight middle-aged woman. Her blood pressure is 160/60 with a pulse of 110 in atrial fibrillation, respirations are 16. She is afebrile. HEENT: BiPAP mask is in place. CHEST: Clear to auscultation anteriorly. HEART: Soft systolic murmur present at the lower sternal border. ABDOMEN: Soft. Bowel sounds are not present. Mild tenderness is noted. EXTREMITIES: 1 to 2+ leg edema. Left foot is wrapped and dressed. DIAGNOSTIC DATA: Potassium is 4.6, BUN and creatinine are 85 and 3.3 with a glucose of 158. White count is 24.9, hemoglobin and hematocrit 8.3 and 26.4 with a platelet count of 219,000. Recent arterial blood gas shows pH of 7.32, pCO2 of 52, and pO2 of 151. Bilirubin is 2.8. Albumin is 2.5. IMPRESSION: 1. Status post surgical repair and bowel resection for incarcerated incisional hernia secondary to postoperative ileus. 2. Coronary artery disease, status post remote percutaneous coronary intervention, currently stable. 3. Peripheral vascular disease, status post left leg percutaneous transluminal angioplasty of superficial femoral artery, popliteal, and anterior tibial arteries. 4. Contrast nephropathy with nonoliguric renal failure. 5. Gangrenous left second toe. 6. Postoperative anemia. 7. Chronic atrial fibrillation, currently on subcutaneous heparin and IV beta-ary therapy. RECOMMENDATIONS: 1. Current medications will be continued for now. 2. Full anticoagulation should be resumed once felt safe by surgical service. 3. IV antihypertensive therapy will continue for now as well. 4. If her ileus persists, parenteral nutrition support should be considered. We will continue to follow and make further recommendations as appropriate. Mauro Dowell MD [facility] # [id number]
--- NOTE | 2018-06-07 00:18 | PN ---
DATE: 06/06/2018 SUBJECTIVE: The patient has no complaints of any chest pain. She is awake. She denies any headaches. Chest x-ray shows slight improvement in the right-sided infiltrate. VITAL SIGNS: Temperature is 98.1, pulse of 80, blood pressure is 128/62, respirations 20. GENERAL: The patient is lying in bed, flat, comfortable. HEENT: No oral lesion. Anicteric sclerae. Moist mucosa. NECK: No JVD, adenopathy, or thyromegaly. CARDIOVASCULAR: S1 and S2, regular. No murmurs, rubs, or gallops. LUNGS: Clear to auscultation bilaterally. No wheeze, rales, or rhonchi. ABDOMEN: Bowel sounds are positive, soft, nontender and nondistended. EXTREMITIES: No cyanosis, clubbing or edema. ASSESSMENT: 1. Acute kidney injury, secondary to contrast nephropathy. 2. Chronic kidney disease, stage 3. 3. Diabetes type 2. 4. Hypertension. 5. Peripheral arterial disease. 6. Status post small bowel obstruction. 7. Hyperphosphatemia. PLAN: The patient is feeling better. Her blood pressure is controlled. Her creatinine is starting to improve. Her creatinine is 3.3 this morning. Her phosphorus and magnesium remain elevated. The patient does have an increase in the white cell count, it is 24.9. The patient has an ulcer that shows Corynebacterium. She is on Azactam for her toe gangrene. She is on Dilaudid for pain. She is receiving heparin for DVT prophylaxis. She is on lisinopril for her diabetes. She is on amlodipine for hypertension as well as on linezolid for her antibiotics. Her total balance is negative 220. Kailash Watkins MD [facility]
[2018-06-07] MEDS: Levalbuterol 1.25 MG/3 ML Inhal Soln UD IH SCH ×4 (02:20→20:11)
[2018-06-07] MEDS: HYDROmorphone 0.5 mg/0.5 ml ISec IVP PRN ×3 (02:49→22:52)
[2018-06-07] MEDS: Nitroglycerin 2% Ointment Foilpak UD TOP SCH ×3 (02:49→18:11)
[2018-06-07] MEDS: Metoprolol 1 mg/ml Inj IVP SCH ×4 (04:31→23:04)
[2018-06-07] MEDS: metroNIDAZOLE IV 500 mg/100 ml 500 MG/100 ML BAG IVPB SCH ×3 (05:27→22:06)
--- NOTE | 2018-06-07 08:19 | CP.PCM.PN ---
Subjective - Date & Time of Evaluation Date of Evaluation: 06/07/18 Time of Evaluation: 08:16 - Subjective Subjective: Surgery Pt seen and examined. On hi flow O2. saturating at 80s%. Denies ambulation, OOB. Low PO tolerance. No appetite. CXR reviewed. shows increased infiltrate. NGT in place. Per nursing had BM since surgery. Objective - Vital Signs/Intake and Output Vital Signs (last 24 hours): Temp Pulse Resp BP Pulse Ox 98.7 F 103 H 24 140/70 87 L 06/07/18 04:00 06/07/18 07:50 06/07/18 06:01 06/07/18 06:01 06/07/18 06:01 Intake and Output: 06/07/18 06/07/18 06:59 18:59 Intake Total 600 Output Total 965 Balance -365 - Medications Medications: Current Medications Acetaminophen (Tylenol 325mg Tab) 650 mg PO Q6H PRN PRN Reason: Fever >100.4 F Last Admin: 05/30/18 01:30 Dose: 650 mg Albuterol/Ipratropium (Duoneb 3 Mg/0.5 Mg (3 Ml) Ud) 3 ml IH Q2H PRN PRN Reason: Shortness of Breath Amlodipine Besylate (Norvasc) 10 mg PO DAILY [facility] Last Admin: 06/02/18 09:34 Dose: Not Given Aspirin (Aspirin Chewable) 81 mg PO DAILY [facility] Last Admin: 06/06/18 10:19 Dose: 81 mg Atorvastatin Calcium (Lipitor) 40 mg PO QOTHERDAY [facility] Last Admin: 06/06/18 10:19 Dose: 40 mg Clonidine HCl (Catapres) 0.3 mg PO TID [facility] Last Admin: 06/03/18 10:50 Dose: Not Given Dextrose (Dextrose 50% Inj) 50 ml IVP ONCE PRN PRN Reason: Hypoglycemia Furosemide (Lasix) 40 mg IVP Q12 [facility] Last Admin: 06/06/18 21:20 Dose: 40 mg Heparin Sodium (Porcine) (Heparin) 5,000 units SC Q8 [facility]; Protocol Last Admin: 06/07/18 05:26 Dose: 5,000 units Hydralazine HCl (Apresoline) 10 mg IV Q6H PRN PRN Reason: Systolic Blood Pressure Last Admin: 06/06/18 08:49 Dose: 10 mg Hydralazine HCl (Apresoline) 25 mg PO Q6H [facility] Last Admin: 06/02/18 05:37 Dose: Not Given Hydromorphone HCl (Dilaudid) 0.5 mg IVP Q4H PRN PRN Reason: Pain, moderate (4-7) Last Admin: 06/07/18 02:49 Dose: 0.5 mg Heparin Sodium/Sodium Chloride (Heparin 47292 Units/250ml 1/2 Normal Saline) 25,000 units in 250 mls @ 16.248 mls/hr IV .[id number] PRN; Protocol PRN Reason: ADJUST RATE PER PROTOCOL Last Titration: 05/31/18 10:20 Dose: 0 units/kg/hr, 0 mls/hr Metronidazole (Flagyl) 500 mg in 100 mls @ 100 mls/hr IVPB Q8 [facility]; Protocol Last Admin: 06/07/18 05:27 Dose: 100 mls/hr Linezolid (Zyvox 600mg/300ml D5w) 600 mg in 300 mls @ 200 mls/hr IVPB Q12 [facility]; Protocol Stop: 06/08/18 13:31 Last Admin: 06/06/18 22:53 Dose: 200 mls/hr Aztreonam (Azactam 1 Gm) 100 mls @ 100 mls/hr IVPB Q12 [facility]; Protocol Stop: 06/09/18 22:01 Last Admin: 06/06/18 22:13 Dose: 100 mls/hr Insulin Human Lispro (Humalog High) 0 units SC ACHS [facility]; Protocol Last Admin: 06/06/18 22:00 Dose: Not Given Insulin Lispro Protam/Lispro Human (Humalog Mix 75/25) 10 units SC ACBD [facility] Last Admin: 06/06/18 16:45 Dose: Not Given Isosorbide Mononitrate (Imdur Er) 30 mg PO 0600 [facility] Last Admin: 06/03/18 05:08 Dose: Not Given Labetalol HCl (Trandate) 200 mg PO BID [facility] Last Admin: 06/02/18 09:34 Dose: Not Given Levalbuterol HCl (Xopenex) 1.25 mg IH [id number] [facility] Last Admin: 06/07/18 07:40 Dose: 1.25 mg Metoprolol Tartrate (Lopressor) 50 mg PO Q12H [facility] Last Admin: 05/30/18 01:30 Dose: 50 mg Metoprolol Tartrate (Lopressor) 5 mg IVP Q6H [facility] Last Admin: 06/07/18 04:31 Dose: 5 mg Nitroglycerin (Nitro-Bid 2% Oint) 1 ea TOP Q8H [facility] Last Admin: 06/07/18 02:49 Dose: 1 ea Ondansetron HCl (Zofran Inj) 4 mg IVP Q6H PRN PRN Reason: Nausea/Vomiting Oxychlorosene Sodium (Clorpactin Wcs-90) 2 gm TOP DAILY [facility] Last Admin: 06/06/18 10:46 Dose: 2 gm Pantoprazole Sodium (Protonix Inj) 40 mg IVP DAILY [facility] Last Admin: 06/06/18 10:20 Dose: 40 mg Simethicone (Mylicon Chew Tab) 80 mg PO [facility] PRN PRN Reason: GI distress Last Admin: 05/31/18 09:48 Dose: 80 mg - Labs Labs: 06/06/18 05:00 06/06/18 05:00 PT 23.6 SECONDS (9.4-12.5) H 06/02/18 10:05 INR 2.09 06/02/18 10:05 APTT 34.5 Seconds (26.9-38.3) 06/02/18 10:05 - Constitutional Appears: No Acute Distress - Head Exam Head Exam: ATRAUMATIC, NORMAL INSPECTION, NORMOCEPHALIC - Eye Exam Eye Exam: EOMI, Normal appearance, PERRL Pupil Exam: NORMAL ACCOMODATION, PERRL - ENT Exam ENT Exam: Mucous Membranes Moist, Normal Exam - Neck Exam Neck Exam: Full ROM, Normal Inspection. absent: Lymphadenopathy - Respiratory Exam Respiratory Exam: Respiratory Distress - Cardiovascular Exam Cardiovascular Exam: REGULAR RHYTHM - GI/Abdominal Exam GI & Abdominal Exam: Soft, Tenderness Additional comments: drains ss b/l : 100cc each /24hrs - Exam Exam: NORMAL INSPECTION - Extremities Exam Extremities Exam: Pedal Edema - Neurological Exam Neurological Exam: Alert, Awake, Oriented x3. absent: Normal Gait - Psychiatric Exam Psychiatric exam: Normal Mood - Skin Skin Exam: Dry, Intact Assessment and Plan - Assessment and Plan (Free Text) Assessment: 67 yo F s/p strangulated ventral hernia repair w small bowel resection, jejunocecal anastamosis and primary closure. POD 5 Plan: - Okay to use NGT for tube feeds while on BiPAP due aspiration risk and respiratory distress -advance diet as tolerated -swallow eval - monitor bowel function - Continue drain management - Strict Is and Os - Continue Abx as per ID -Mucomyst, chest PT Further recs as per Dr. Morrell
[2018-06-07 08:30] LABS: BASO # 0.01 K/mm3 (0.0-2.0); HEMOGLOBIN 8.5 g/dL (12.0-16.0); LYMPH # 0.4 (1.2-3.4); LYMPH % 1.7 % (22.0-35.0); MEAN CELL VOLUME 83.8 fl (80.0-105.0); MEAN CORPUSCULAR HGB CONC 32.2 g/dl (31.0-37.0); MEAN PLATELET VOLUME 9.3 fl (7.0-11.0); MONO # 0.9 (0.1-0.6); MONO % 3.6 % (1.0-6.0); RBC 3.15 10^6/uL (3.5-6.1); WHITE BLOOD COUNT 23.9 10^3/uL (4.5-11.0)
--- NOTE | 2018-06-07 08:33 | PN ---
DATE: 06/07/2018 SUBJECTIVE: The patient is seen lying in bed in the ICU. She remains on high-flow oxygen and NG tube is in place. She denies any flatus. She has no pain at the present time. CURRENT MEDICATIONS: Include hydralazine, aspirin, Azactam, Dilaudid, DuoNeb inhaler, Flagyl, subcutaneous heparin, Lasix 40 mg IV every 12 hours, Lipitor, IV metoprolol and topical nitrates as well as Protonix. OBJECTIVE: GENERAL: She is a overweight middle-aged woman. VITAL SIGNS: Blood pressure is 158/56 with pulse of 100 in atrial fibrillation, respirations 14. She is afebrile. HEENT: No JVD. CHEST: Diminished breath sounds at the bases. HEART: PMI displaced laterally with systolic murmur at the left sternal border. ABDOMEN: Soft. Bowel sounds are absent. EXTREMITIES: With 2+ leg edema. The left foot is dressed. DIAGNOSTIC DATA: Morning blood work is pending. IMPRESSION: 1. Recent incarcerated incisional hernia status post bowel resection of surgical repair. 2. Persistent postoperative ileus. 3. Coronary artery disease status post remote percutaneous coronary intervention stable at present. 4. Gangrenous left second toe, awaits amputation. 5. Contrast nephropathy with nonoliguric renal failure. 6. Postoperative anemia. 7. Peripheral vascular disease status post percutaneous transluminal coronary angioplasty of the left superficial femoral artery, popliteal and anterior tibial arteries. 8. Chronic atrial fibrillation. RECOMMENDATIONS: Current medications will continue for now. Resumption of oral anticoagulant therapy is advised once cleared by surgery. IV medication for hypertension control will continue. Consideration should be given to initiation of TPN for nutritional support given her persistent ileus and n.p.o. status. We will continue to follow and make further recommendations as appropriate. Mauro Dowell MD
[2018-06-07 08:46] LABS: ALB/GLOB RATIO 0.8 (1.1-1.8); ALBUMIN 2.7 g/dL (3.0-4.8); CALCIUM 8.1 mg/dL (8.4-10.5)
--- NOTE | 2018-06-07 09:10 | RAD ---
Date of service: 06/07/2018 HISTORY: SOB COMPARISON: 06/06/2018 FINDINGS: LUNGS: There is no change in the dense infiltrate in the right lower lobe. The left lung remains clear PLEURA: No significant pleural effusion identified, no pneumothorax apparent. CARDIOVASCULAR: Aortic calcification Cardiomegaly OSSEOUS STRUCTURES: No significant abnormalities. VISUALIZED UPPER ABDOMEN: Normal. OTHER FINDINGS: None. IMPRESSION: There is no change in the dense infiltrate in the right lower lobe. The left lung remains clear
[2018-06-07] MEDS: Aztreonam 1 Gm in NS 100mL 100 ML IVPB SCH ×2 (10:05→22:06)
[2018-06-07] MEDS: Linezolid 600 mg in D5W 300 ml 600 MG/300 ML BAG IVPB SCH ×2 (10:06→22:48)
--- NOTE | 2018-06-07 12:59 | CP.PCM.PN ---
<MyrtleCecy jacobo - Last Filed: 06/07/18 12:55> Subjective - Date & Time of Evaluation Date of Evaluation: 06/07/18 Time of Evaluation: 12:56 - Subjective Subjective: Podiatry Progress Note: Dr. Kim 67 y/o female patient seen and evaluated at beside in the ICU this morning for L second digit gangrene. Patient awake and alert. There is gangrenous cahnges to the first and third digits as well. Patient is able to respond to simple questions. Objective - Vital Signs/Intake and Output Vital Signs (last 24 hours): Temp Pulse Resp BP Pulse Ox 98.7 F 106 H 24 160/64 H 87 L 06/07/18 04:00 06/07/18 11:25 06/07/18 06:01 06/07/18 10:15 06/07/18 06:01 Intake and Output: 06/07/18 06/07/18 06:59 18:59 Intake Total 600 Output Total 965 Balance -365 - Medications Medications: Current Medications Acetaminophen (Tylenol 325mg Tab) 650 mg PO Q6H PRN PRN Reason: Fever >100.4 F Last Admin: 05/30/18 01:30 Dose: 650 mg Acetylcysteine (Acetylcysteine 20%) 4 ml IH BIDRESP [facility] Albuterol/Ipratropium (Duoneb 3 Mg/0.5 Mg (3 Ml) Ud) 3 ml IH Q2H PRN PRN Reason: Shortness of Breath Amlodipine Besylate (Norvasc) 10 mg PO DAILY [facility] [place] Last Admin: 06/02/18 09:34 Dose: Not Given Aspirin (Aspirin Chewable) 81 mg PO DAILY [facility] [place] Last Admin: 06/06/18 10:19 Dose: 81 mg Atorvastatin Calcium (Lipitor) 40 mg PO QOTHERDAY [facility] [place] Last Admin: 06/06/18 10:19 Dose: 40 mg Clonidine HCl (Catapres) 0.3 mg PO TID [facility] [place] Last Admin: 06/03/18 10:50 Dose: Not Given Dextrose (Dextrose 50% Inj) 50 ml IVP ONCE PRN PRN Reason: Hypoglycemia Furosemide (Lasix) 40 mg IVP Q12 [facility] [place] Last Admin: 06/07/18 10:15 Dose: 40 mg Heparin Sodium (Porcine) (Heparin) 5,000 units SC Q8 [facility] [place]; Protocol Last Admin: 06/07/18 05:26 Dose: 5,000 units Hydralazine HCl (Apresoline) 10 mg IV Q6H PRN PRN Reason: Systolic Blood Pressure Last Admin: 06/06/18 08:49 Dose: 10 mg Hydralazine HCl (Apresoline) 25 mg PO Q6H [facility] Last Admin: 06/02/18 05:37 Dose: Not Given Hydromorphone HCl (Dilaudid) 0.5 mg IVP Q4H PRN PRN Reason: Pain, moderate (4-7) Last Admin: 06/07/18 10:12 Dose: 0.5 mg Heparin Sodium/Sodium Chloride (Heparin 85075 Units/250ml 1/2 Normal Saline) 25,000 units in 250 mls @ 16.248 mls/hr IV .[id number] PRN; Protocol PRN Reason: ADJUST RATE PER PROTOCOL Last Titration: 05/31/18 10:20 Dose: 0 units/kg/hr, 0 mls/hr Metronidazole (Flagyl) 500 mg in 100 mls @ 100 mls/hr IVPB Q8 [facility]; Protocol Last Admin: 06/07/18 05:27 Dose: 100 mls/hr Linezolid (Zyvox 600mg/300ml D5w) 600 mg in 300 mls @ 200 mls/hr IVPB Q12 [facility]; Protocol Stop: 06/08/18 13:31 Last Admin: 06/07/18 10:06 Dose: 200 mls/hr Aztreonam (Azactam 1 Gm) 100 mls @ 100 mls/hr IVPB Q12 [facility]; Protocol Stop: 06/09/18 22:01 Last Admin: 06/07/18 10:05 Dose: 100 mls/hr Insulin Human Lispro (Humalog High) 0 units SC ACHS [facility]; Protocol Last Admin: 06/06/18 22:00 Dose: Not Given Insulin Lispro Protam/Lispro Human (Humalog Mix 75/25) 10 units SC ACBD [facility] Last Admin: 06/06/18 16:45 Dose: Not Given Isosorbide Mononitrate (Imdur Er) 30 mg PO 0600 [facility] Last Admin: 06/03/18 05:08 Dose: Not Given Labetalol HCl (Trandate) 200 mg PO BID [facility] [place] Last Admin: 06/02/18 09:34 Dose: Not Given Levalbuterol HCl (Xopenex) 1.25 mg IH [id number] [facility] [place] Last Admin: 06/07/18 07:40 Dose: 1.25 mg Metoprolol Tartrate (Lopressor) 50 mg PO Q12H [facility] [place] Last Admin: 05/30/18 01:30 Dose: 50 mg Metoprolol Tartrate (Lopressor) 5 mg IVP Q6H [facility] [place] Last Admin: 06/07/18 04:31 Dose: 5 mg Nitroglycerin (Nitro-Bid 2% Oint) 1 ea TOP Q8H [facility] [place] Last Admin: 06/07/18 02:49 Dose: 1 ea Ondansetron HCl (Zofran Inj) 4 mg IVP Q6H PRN PRN Reason: Nausea/Vomiting Oxychlorosene Sodium (Clorpactin Wcs-90) 2 gm TOP DAILY [facility] [place] Last Admin: 06/06/18 10:46 Dose: 2 gm Pantoprazole Sodium (Protonix Inj) 40 mg IVP DAILY [facility] [place] Last Admin: 06/07/18 10:15 Dose: 40 mg Simethicone (Mylicon Chew Tab) 80 mg PO HS PRN PRN Reason: GI distress Last Admin: 05/31/18 09:48 Dose: 80 mg - Labs Labs: 06/07/18 08:20 06/07/18 08:20 PT 23.6 SECONDS (9.4-12.5) H 06/02/18 10:05 INR 2.09 06/02/18 10:05 APTT 34.5 Seconds (26.9-38.3) 06/02/18 10:05 - Constitutional Appears: Well, Non-toxic, No Acute Distress - Head Exam Head Exam: ATRAUMATIC, NORMOCEPHALIC - Extremities Exam Additional comments: VASC: non-palpable pedal pulses noted bilaterally, capillary filling time is delayed X 9, and absent on the left second digit DERM: there is gangrene of the entire left second digit, with an open wound at the base of the left second MTPJ, no purulence at this tme from the wound, however, there is serosanguinous fluid draining, there are gangrenous changes to the medial aspect of the 3rd digit, and bluish discoloration to the first as well, slgiht dislocoration noted to the entire forefoot indicating likely ischemia - Neurological Exam Neurological Exam: Alert, Awake, Oriented x3 - Psychiatric Exam Psychiatric exam: Normal Affect, Normal Mood Assessment and Plan - Assessment and Plan (Free Text) Assessment: 67 year old female with left second digit gangrene with accompanying abscess seen, patient impending ischemia of the entire left forefoot Plan: Patient was seen and evaluated Plan was discussed with Dr. Kim Wound dressing was changed and wound was flushed with clorpactin solution Small amount of iodoform packing was placed with betadine, DSD Patient to be stabilized medically prior to any distal surgical intervention Will continue local wound care <Gil Kim - Last Filed: 06/08/18 09:25> Objective - Vital Signs/Intake and Output Vital Signs (last 24 hours): Temp Pulse Resp BP Pulse Ox 98.6 F 76 21 101/42 L 88 L 06/08/18 04:00 06/08/18 08:16 06/08/18 08:01 06/08/18 08:01 06/08/18 08:01 Intake and Output: 06/08/18 06/08/18 06:59 18:59 Intake Total 600 Output Total 225 Balance 375 - Medications Medications: Current Medications Acetaminophen (Tylenol 325mg Tab) 650 mg PO Q6H PRN PRN Reason: Fever >100.4 F Last Admin: 05/30/18 01:30 Dose: 650 mg Acetylcysteine (Acetylcysteine 20%) 4 ml IH BIDRESP [facility] [place] Last Admin: 06/08/18 08:13 Dose: 4 ml Albuterol/Ipratropium (Duoneb 3 Mg/0.5 Mg (3 Ml) Ud) 3 ml IH Q2H PRN PRN Reason: Shortness of Breath Amlodipine Besylate (Norvasc) 10 mg PO DAILY [facility] [place] Last Admin: 06/02/18 09:34 Dose: Not Given Aspirin (Aspirin Chewable) 81 mg PO DAILY [facility] [place] Last Admin: 06/07/18 13:10 Dose: 81 mg Atorvastatin Calcium (Lipitor) 40 mg PO QOTHERDAY [facility] [place] Last Admin: 06/06/18 10:19 Dose: 40 mg Clonidine HCl (Catapres) 0.3 mg PO TID [facility] [place] Last Admin: 06/03/18 10:50 Dose: Not Given Furosemide (Lasix) 40 mg IVP Q12 [facility] [place] Last Admin: 06/07/18 22:05 Dose: 40 mg Heparin Sodium (Porcine) (Heparin) 5,000 units SC Q8 [facility]; Protocol Last Admin: 06/08/18 05:49 Dose: 5,000 units Hydralazine HCl (Apresoline) 25 mg PO Q6H [facility] Last Admin: 06/02/18 05:37 Dose: Not Given Hydromorphone HCl (Dilaudid) 0.5 mg IVP Q4H PRN PRN Reason: Pain, moderate (4-7) Last Admin: 06/08/18 02:52 Dose: 0.5 mg Heparin Sodium/Sodium Chloride (Heparin 55741 Units/250ml 1/2 Normal Saline) 25,000 units in 250 mls @ 16.248 mls/hr IV .[id number] PRN; Protocol PRN Reason: ADJUST RATE PER PROTOCOL Last Titration: 05/31/18 10:20 Dose: 0 units/kg/hr, 0 mls/hr Metronidazole (Flagyl) 500 mg in 100 mls @ 100 mls/hr IVPB Q8 [facility]; Protocol Last Admin: 06/08/18 05:49 Dose: 100 mls/hr Linezolid (Zyvox 600mg/300ml D5w) 600 mg in 300 mls @ 200 mls/hr IVPB Q12 [facility]; Protocol Stop: 06/08/18 13:31 Last Admin: 06/07/18 22:48 Dose: 200 mls/hr Aztreonam (Azactam 1 Gm) 100 mls @ 100 mls/hr IVPB Q12 [facility]; Protocol Stop: 06/09/18 22:01 Last Admin: 06/07/18 22:06 Dose: 100 mls/hr Iron Sucrose 200 mg/ Sodium (Chloride) 110 mls @ 110 mls/hr IVPB ONCE ONE Stop: 06/08/18 09:59 Insulin Human Lispro (Humalog High) 0 units SC ACHS [facility]; Protocol Last Admin: 06/08/18 07:51 Dose: Not Given Insulin Lispro Protam/Lispro Human (Humalog Mix 75/25) 10 units SC ACBD [facility] Last Admin: 06/08/18 07:52 Dose: Not Given Levalbuterol HCl (Xopenex) 1.25 mg IH [id number] [facility] Last Admin: 06/08/18 08:13 Dose: 1.25 mg Metoprolol Tartrate (Lopressor) 50 mg PO Q12H [facility] [place] Last Admin: 05/30/18 01:30 Dose: 50 mg Metoprolol Tartrate (Lopressor) 5 mg IVP Q6H [facility] [place] Last Admin: 06/08/18 04:30 Dose: 5 mg Ondansetron HCl (Zofran Inj) 4 mg IVP Q6H PRN PRN Reason: Nausea/Vomiting Oxychlorosene Sodium (Clorpactin Wcs-90) 2 gm TOP DAILY [facility] [place] Last Admin: 06/07/18 13:10 Dose: 2 gm Pantoprazole Sodium (Protonix Inj) 40 mg IVP DAILY [facility] [place] Last Admin: 06/07/18 10:15 Dose: 40 mg Simethicone (Mylicon Chew Tab) 80 mg PO PCHS PRN PRN Reason: GI distress Last Admin: 05/31/18 09:48 Dose: 80 mg - Labs Labs: 06/08/18 06:30 06/08/18 06:30 PT 23.6 SECONDS (9.4-12.5) H 06/02/18 10:05 INR 2.09 06/02/18 10:05 APTT 34.5 Seconds (26.9-38.3) 06/02/18 10:05 Attending/Attestation - Attestation I have personally seen and examined this patient.: Yes I have fully participated in the care of the patient.: Yes I have reviewed all pertinent clinical information, including history, physical exam and plan: Yes
[2018-06-07] MEDS: Oxychlorosene Topical 2 gm Packet TOP SCH (13:10)
[2018-06-07] MEDS: Insulin Lispro (HUMAlog) HIGH Coverage SC SCH ×3 (13:11→22:00)
[2018-06-07] MEDS: Insulin Lispro (humaLOG) MIX 75/25(10 ml) SC SCH ×2 (13:13→18:05)
--- NOTE | 2018-06-07 13:15 | PN ---
DATE: 06/07/2018 SUBJECTIVE: The patient states she is able to sleep overnight. She has no complaints of any headache or dizziness. OBJECTIVE: VITAL SIGNS: Temperature is 98.7, pulse of 103, blood pressure is 160/64, respirations 24. GENERAL: The patient is lying in bed, flat, comfortable. HEENT: No oral lesion. Anicteric sclerae. Moist mucosa. NECK: No JVD, adenopathy, or thyromegaly. CARDIOVASCULAR: S1 and S2, regular. No murmurs, rubs, or gallops. LUNGS: Clear to auscultation bilaterally. No wheeze, rales, or rhonchi. ABDOMEN: Bowel sounds are positive, soft, nontender and nondistended. EXTREMITIES: No cyanosis, clubbing or edema. LABORATORY DATA: White count of 23.9, hemoglobin 8.5, creatinine is 2.6, bicarb of 16. Chest x-ray done shows no changes in dense infiltrate in the right lower lobe. ASSESSMENT: 1. Hospital-acquired pneumonia. 2. Acute kidney injury secondary to contrast nephropathy. 3. Chronic kidney disease, stage III. 4. Diabetes type 2. 5. Hypertension. 6. Peripheral arterial disease. 7. Hyperphosphatemia. 8. Status post small bowel obstruction. 9. Iron deficiency anemia. 10. PENICILLIN ALLERGY. PLAN: The patient has creatinine that is slowly improving, creatinine is 2.6. She has ferritin level of 83. Her iron saturation is 15%. Her hemoglobin is 8.5. She is continuing with hydralazine. She is on Azactam for antibiotics. SHE HAS A PENICILLIN ALLERGY. She is on Flagyl as well as she is on heparin for DVT prophylaxis. She is on insulin for her diabetes. She is receiving Lipitor for dyslipidemia. She is receiving Norvasc for hypertension. Her blood pressure is elevated today, although her blood pressure earlier today was 140/70. Kailash Watkins MD
[2018-06-07] MEDS: Acetylcysteine 20% Inhal Soln (4ml) IH SCH ×2 (13:18→20:11)
--- NOTE | 2018-06-07 14:02 | PN ---
DATE: 06/07/2018 SUBJECTIVE: The patient is awake, responding appropriately. The patient is on high-flow oxygen and O2 saturations have decreased. We will replace her back to BiPap and monitor closely. The patient has occasional cough and congestion. No complaints of chest pain. PHYSICAL EXAMINATION: VITAL SIGNS: Temperature is 98.7, her pulse is 103, respirations of 24 and BP is 140/70. SKIN: Warm and dry. HEENT: Head: Atraumatic, normocephalic. Eyes: Reactive to light. Ears, nose and throat seemed to be within normal limits. NECK: Supple. No JVD. No thyroid enlargement, no lymph nodes. HEART: Has a regular rate and rhythm. Normal S1, S2. Mildly tachycardic. LUNGS: Bilateral rhonchi. ABDOMEN: Soft. Decreased bowel sounds, tender to palpation. GENITALIA AND RECTAL: Deferred. MUSCULOSKELETAL: No joint deformities. EXTREMITIES: Positive lower extremity edema. NEUROLOGICAL: The patient seems to be grossly intact. LABORATORY DATA: Her white count is 23.9, hemoglobin is 8.5, hematocrit 26.4 with platelets of 214,000. Her sodium is 145, potassium 4.5, chloride 117, CO2 of 16 with a BUN of 85, creatinine of 2.6 and a glucose of 175. As far as her chest x-ray, seems to be worsening right-sided infiltrate with increasing pleural effusion. This is an unofficial reading. IMPRESSION: The patient has a right-sided pneumonia with pleural effusion. She does have gangrenous toes on the left foot and she is status post partial small bowel obstruction and partial small bowel resection. The patient has a history of ventral hernia and carries a diagnosis of anemia, congestive heart failure and diabetes. PLAN: We will continue with aggressive pulmonary toilet. The patient will be changed to BiPap and O2 saturation monitored closely. We will continue to follow her arterial blood gas, her chest x-ray and give her hydralazine, aspirin, Azactam, DuoNeb, heparin subcu, insulin, Lasix 40 mg twice a day and Lipitor. The patient is also on Lopressor, nitroglycerin as well as Tylenol. We will continue to treat aggressively along with the other consultants and the primary care doctor. Carlos Keenan MD [facility] # [id number]
--- NOTE | 2018-06-07 15:32 | CP.PCM.PN ---
Subjective - Date & Time of Evaluation Date of Evaluation: 06/07/18 Time of Evaluation: 08:00 - Subjective Subjective: Patient still feels weak and tired, some abdominal discomfort, no fevers overnight. Objective - Vital Signs/Intake and Output Vital Signs (last 24 hours): Temp Pulse Resp BP Pulse Ox 98.7 F 95 H 24 140/70 87 L 06/07/18 04:00 06/07/18 06:01 06/07/18 06:01 06/07/18 06:01 06/07/18 06:01 Intake and Output: 06/07/18 06/07/18 06:59 18:59 Intake Total 600 Output Total 965 Balance -365 - Medications Medications: Current Medications Acetaminophen (Tylenol 325mg Tab) 650 mg PO Q6H PRN PRN Reason: Fever >100.4 F Last Admin: 05/30/18 01:30 Dose: 650 mg Albuterol/Ipratropium (Duoneb 3 Mg/0.5 Mg (3 Ml) Ud) 3 ml IH Q2H PRN PRN Reason: Shortness of Breath Amlodipine Besylate (Norvasc) 10 mg PO DAILY [facility] Last Admin: 06/02/18 09:34 Dose: Not Given Aspirin (Aspirin Chewable) 81 mg PO DAILY [facility] Last Admin: 06/06/18 10:19 Dose: 81 mg Atorvastatin Calcium (Lipitor) 40 mg PO QOTHERDAY [facility] Last Admin: 06/06/18 10:19 Dose: 40 mg Clonidine HCl (Catapres) 0.3 mg PO TID [facility] Last Admin: 06/03/18 10:50 Dose: Not Given Dextrose (Dextrose 50% Inj) 50 ml IVP ONCE PRN PRN Reason: Hypoglycemia Furosemide (Lasix) 40 mg IVP Q12 [facility] Last Admin: 06/06/18 21:20 Dose: 40 mg Heparin Sodium (Porcine) (Heparin) 5,000 units SC Q8 [facility]; Protocol Last Admin: 06/07/18 05:26 Dose: 5,000 units Hydralazine HCl (Apresoline) 10 mg IV Q6H PRN PRN Reason: Systolic Blood Pressure Last Admin: 06/06/18 08:49 Dose: 10 mg Hydralazine HCl (Apresoline) 25 mg PO Q6H [facility] Last Admin: 06/02/18 05:37 Dose: Not Given Hydromorphone HCl (Dilaudid) 0.5 mg IVP Q4H PRN PRN Reason: Pain, moderate (4-7) Last Admin: 06/07/18 02:49 Dose: 0.5 mg Heparin Sodium/Sodium Chloride (Heparin 29365 Units/250ml 1/2 Normal Saline) 25,000 units in 250 mls @ 16.248 mls/hr IV .[id number] PRN; Protocol PRN Reason: ADJUST RATE PER PROTOCOL Last Titration: 05/31/18 10:20 Dose: 0 units/kg/hr, 0 mls/hr Metronidazole (Flagyl) 500 mg in 100 mls @ 100 mls/hr IVPB Q8 [facility]; Protocol Last Admin: 06/07/18 05:27 Dose: 100 mls/hr Linezolid (Zyvox 600mg/300ml D5w) 600 mg in 300 mls @ 200 mls/hr IVPB Q12 [facility]; Protocol Stop: 06/08/18 13:31 Last Admin: 06/06/18 22:53 Dose: 200 mls/hr Aztreonam (Azactam 1 Gm) 100 mls @ 100 mls/hr IVPB Q12 [facility]; Protocol Stop: 06/09/18 22:01 Last Admin: 06/06/18 22:13 Dose: 100 mls/hr Insulin Human Lispro (Humalog High) 0 units SC ACHS [facility]; Protocol Last Admin: 06/06/18 22:00 Dose: Not Given Insulin Lispro Protam/Lispro Human (Humalog Mix 75/25) 10 units SC ACBD [facility] Last Admin: 06/06/18 16:45 Dose: Not Given Isosorbide Mononitrate (Imdur Er) 30 mg PO 0600 [facility] Last Admin: 06/03/18 05:08 Dose: Not Given Labetalol HCl (Trandate) 200 mg PO BID [facility] Last Admin: 06/02/18 09:34 Dose: Not Given Levalbuterol HCl (Xopenex) 1.25 mg IH [id number] [facility] Last Admin: 06/07/18 02:20 Dose: 1.25 mg Metoprolol Tartrate (Lopressor) 50 mg PO Q12H [facility] Last Admin: 05/30/18 01:30 Dose: 50 mg Metoprolol Tartrate (Lopressor) 5 mg IVP Q6H [facility] Last Admin: 06/07/18 04:31 Dose: 5 mg Nitroglycerin (Nitro-Bid 2% Oint) 1 ea TOP Q8H [facility] Last Admin: 06/07/18 02:49 Dose: 1 ea Ondansetron HCl (Zofran Inj) 4 mg IVP Q6H PRN PRN Reason: Nausea/Vomiting Oxychlorosene Sodium (Clorpactin Wcs-90) 2 gm TOP DAILY [facility] Last Admin: 06/06/18 10:46 Dose: 2 gm Pantoprazole Sodium (Protonix Inj) 40 mg IVP DAILY [facility] Last Admin: 06/06/18 10:20 Dose: 40 mg Simethicone (Mylicon Chew Tab) 80 mg PO [facility] PRN PRN Reason: GI distress Last Admin: 05/31/18 09:48 Dose: 80 mg - Labs Labs: 06/06/18 05:00 06/06/18 05:00 PT 23.6 SECONDS (9.4-12.5) H 06/02/18 10:05 INR 2.09 06/02/18 10:05 APTT 34.5 Seconds (26.9-38.3) 06/02/18 10:05 - Constitutional Appears: Chronically Ill - Head Exam Head Exam: NORMAL INSPECTION - Respiratory Exam Respiratory Exam: Decreased Breath Sounds - Cardiovascular Exam Cardiovascular Exam: +S1, +S2 - GI/Abdominal Exam GI & Abdominal Exam: Soft. 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 Kim - bedside I and D done - the cultures only yielded Corynebacterium which are contaminants - will have foot surgery this coming week continue Zyvox and Azactam and Flagyl and will continue to monitor clinically, trend WBC count - since the WBC count is still elevated, will repeat blood cx patient continue to be critically-ill
[2018-06-08] MEDS: Levalbuterol 1.25 MG/3 ML Inhal Soln UD IH SCH ×4 (01:00→19:30)
[2018-06-08] MEDS: Nitroglycerin 2% Ointment Foilpak UD TOP SCH (02:24)
[2018-06-08] MEDS: HYDROmorphone 0.5 mg/0.5 ml ISec IVP PRN (02:52)
[2018-06-08] MEDS: Metoprolol 1 mg/ml Inj IVP SCH ×2 (04:30→10:46)
[2018-06-08] MEDS: metroNIDAZOLE IV 500 mg/100 ml 500 MG/100 ML BAG IVPB SCH (05:49)
[2018-06-08 07:13] LABS: BASO # 0.02 K/mm3 (0.0-2.0); BASO % 0.1 % (0.0-3.0); HEMOGLOBIN 8.1 g/dL (12.0-16.0); LYMPH # 0.7 (1.2-3.4); LYMPH % 3.2 % (22.0-35.0); MEAN CELL VOLUME 87.2 fl (80.0-105.0); MEAN CORPUSCULAR HEMOGLOBIN 26.6 pg (25.0-35.0); MEAN CORPUSCULAR HGB CONC 30.6 g/dl (31.0-37.0); MEAN PLATELET VOLUME 9.8 fl (7.0-11.0); MONO # 0.5 (0.1-0.6); MONO % 2.3 % (1.0-6.0); RBC 3.04 10^6/uL (3.5-6.1); RED CELL DISTRIBUTION WIDTH 19.6 % (11.5-14.5); WHITE BLOOD COUNT 22.9 10^3/uL (4.5-11.0)
[2018-06-08] MEDS: Insulin Lispro (HUMAlog) HIGH Coverage SC SCH ×4 (07:51→21:38)
[2018-06-08] MEDS: Insulin Lispro (humaLOG) MIX 75/25(10 ml) SC SCH ×2 (07:52→18:22)
[2018-06-08 07:53] LABS: ALB/GLOB RATIO 0.8 (1.1-1.8); ALBUMIN 2.5 g/dL (3.0-4.8); CALCIUM 8.3 mg/dL (8.4-10.5)
[2018-06-08] MEDS: Acetylcysteine 20% Inhal Soln (4ml) IH SCH ×2 (08:13→19:30)
[2018-06-08] MEDS ORDERED: Iron Sucrose 100 mg/5 ml Inj IVP ONE (08:58)
--- NOTE | 2018-06-08 09:36 | CP.PCM.PN ---
Subjective - Date & Time of Evaluation Date of Evaluation: 06/08/18 Time of Evaluation: 09:33 - Subjective Subjective: Surgery Progress Note for Dr. Morrell's service S/E at bedside. Limited ROS as patient AMS likely 2/2 to recent dialudid. On bipap at 88%. Low blood pressure with MAP of 58. BP meds held. No bowel movement overnight as per nursing. Objective - Vital Signs/Intake and Output Vital Signs (last 24 hours): Temp Pulse Resp BP Pulse Ox 98.6 F 76 21 101/42 L 88 L 06/08/18 04:00 06/08/18 08:16 06/08/18 08:01 06/08/18 08:01 06/08/18 08:01 Intake and Output: 06/08/18 06/08/18 06:59 18:59 Intake Total 600 Output Total 225 Balance 375 - Medications Medications: Current Medications Acetaminophen (Tylenol 325mg Tab) 650 mg PO Q6H PRN PRN Reason: Fever >100.4 F Last Admin: 05/30/18 01:30 Dose: 650 mg Acetylcysteine (Acetylcysteine 20%) 4 ml IH BIDRESP [facility] Last Admin: 06/08/18 08:13 Dose: 4 ml Albuterol/Ipratropium (Duoneb 3 Mg/0.5 Mg (3 Ml) Ud) 3 ml IH Q2H PRN PRN Reason: Shortness of Breath Amlodipine Besylate (Norvasc) 10 mg PO DAILY [facility] Last Admin: 06/02/18 09:34 Dose: Not Given Aspirin (Aspirin Chewable) 81 mg PO DAILY [facility] Last Admin: 06/07/18 13:10 Dose: 81 mg Atorvastatin Calcium (Lipitor) 40 mg PO QOTHERDAY [facility] Last Admin: 06/06/18 10:19 Dose: 40 mg Clonidine HCl (Catapres) 0.3 mg PO TID [facility] Last Admin: 06/03/18 10:50 Dose: Not Given Furosemide (Lasix) 40 mg IVP Q12 [facility] Last Admin: 06/07/18 22:05 Dose: 40 mg Heparin Sodium (Porcine) (Heparin) 5,000 units SC Q8 [facility]; Protocol Last Admin: 06/08/18 05:49 Dose: 5,000 units Hydralazine HCl (Apresoline) 25 mg PO Q6H [facility] Last Admin: 06/02/18 05:37 Dose: Not Given Hydromorphone HCl (Dilaudid) 0.5 mg IVP Q4H PRN PRN Reason: Pain, moderate (4-7) Last Admin: 06/08/18 02:52 Dose: 0.5 mg Heparin Sodium/Sodium Chloride (Heparin 03776 Units/250ml 1/2 Normal Saline) 25,000 units in 250 mls @ 16.248 mls/hr IV .[id number] PRN; Protocol PRN Reason: ADJUST RATE PER PROTOCOL Last Titration: 05/31/18 10:20 Dose: 0 units/kg/hr, 0 mls/hr Metronidazole (Flagyl) 500 mg in 100 mls @ 100 mls/hr IVPB Q8 [facility]; Protocol Last Admin: 06/08/18 05:49 Dose: 100 mls/hr Linezolid (Zyvox 600mg/300ml D5w) 600 mg in 300 mls @ 200 mls/hr IVPB Q12 [facility]; Protocol Stop: 06/08/18 13:31 Last Admin: 06/07/18 22:48 Dose: 200 mls/hr Aztreonam (Azactam 1 Gm) 100 mls @ 100 mls/hr IVPB Q12 [facility]; Protocol Stop: 06/09/18 22:01 Last Admin: 06/07/18 22:06 Dose: 100 mls/hr Iron Sucrose 200 mg/ Sodium (Chloride) 110 mls @ 110 mls/hr IVPB ONCE ONE Stop: 06/08/18 09:59 Insulin Human Lispro (Humalog High) 0 units SC ACHS [facility]; Protocol Last Admin: 06/08/18 07:51 Dose: Not Given Insulin Lispro Protam/Lispro Human (Humalog Mix 75/25) 10 units SC ACBD [facility] Last Admin: 06/08/18 07:52 Dose: Not Given Levalbuterol HCl (Xopenex) 1.25 mg IH Q0OPSTS [facility] Last Admin: 06/08/18 08:13 Dose: 1.25 mg Metoprolol Tartrate (Lopressor) 50 mg PO Q12H [facility] Last Admin: 05/30/18 01:30 Dose: 50 mg Metoprolol Tartrate (Lopressor) 5 mg IVP Q6H [facility] Last Admin: 06/08/18 04:30 Dose: 5 mg Ondansetron HCl (Zofran Inj) 4 mg IVP Q6H PRN PRN Reason: Nausea/Vomiting Oxychlorosene Sodium (Clorpactin Wcs-90) 2 gm TOP DAILY [facility] Last Admin: 06/07/18 13:10 Dose: 2 gm Pantoprazole Sodium (Protonix Inj) 40 mg IVP DAILY [facility] Last Admin: 06/07/18 10:15 Dose: 40 mg Simethicone (Mylicon Chew Tab) 80 mg PO HS PRN PRN Reason: GI distress Last Admin: 05/31/18 09:48 Dose: 80 mg - Labs Labs: 06/08/18 06:30 06/08/18 06:30 PT 23.6 SECONDS (9.4-12.5) H 06/02/18 10:05 INR 2.09 06/02/18 10:05 APTT 34.5 Seconds (26.9-38.3) 06/02/18 10:05 - Constitutional Appears: Non-toxic, No Acute Distress - Head Exam Head Exam: NORMAL INSPECTION, NORMOCEPHALIC - Eye Exam Eye Exam: Normal appearance - ENT Exam ENT Exam: Mucous Membranes Dry - Respiratory Exam Respiratory Exam: Respiratory Distress - Cardiovascular Exam Cardiovascular Exam: REGULAR RHYTHM, +S1, +S2. absent: Tachycardia - GI/Abdominal Exam GI & Abdominal Exam: Soft. absent: Distended, Firm Additional comments: right joseph drain with bloody drainage noted epigastric joseph drain also with bloody draniage noted dressing c/d/i midline stapes s/p henia repair - Extremities Exam Additional comments: swellling noted in upper and lower b/l extremities - Neurological Exam Neurological Exam: absent: Alert, Awake - Skin Skin Exam: Dry, Intact Assessment and Plan - Assessment and Plan (Free Text) Assessment: 67 yo F w/ gangrenous toe. Surgery consulted for hernia repair. s/p strangulated ventral hernia repair w small bowel resection, jejunocecal anastamosis and primary closure. POD 6. PLAN: OOB as tolerable monitor drain outputs monitor bowel function maintain [id number] Strict Is/Os IV abx as per ID NGT tube feeds during bipap to reduce aspiration risk continue aggressive pulm toilet, CHEST pt, duonebs, nacetylcysteine, lasix BP and oxygenation support as per primary team
[2018-06-08] MEDS: Aztreonam 1 Gm in NS 100mL 100 ML IVPB SCH (09:45)
[2018-06-08] MEDS: Linezolid 600 mg in D5W 300 ml 600 MG/300 ML BAG IVPB SCH (09:46)
[2018-06-08] MEDS ORDERED: levoFLOXacin 750 mg in D5W 750 MG/150 ML BAG IVPB STA (10:14)
[2018-06-08] MEDS ORDERED: Sodium Chloride 0.9% 500 ML IV STA ×2 (10:25→14:57)
[2018-06-08] MEDS ORDERED: NOREPINEPHRINE BIT/0.9 % NACL 4 MG/250 ML BAG IV ONE (10:53)
[2018-06-08] MEDS ORDERED: Midazolam 100 mg/100ml in NS 100 MG/100 ML SOL IV PRN (10:58)
[2018-06-08] MEDS ORDERED: Etomidate 20 mg/10ml Inj IV ONE (10:58)
--- NOTE | 2018-06-08 11:42 | RAD ---
Date of service: 06/08/2018 HISTORY: SOB COMPARISON: 2018. FINDINGS: LUNGS: Stable infiltrates primarily affecting the right lung. PLEURA: No significant pleural effusion identified, no pneumothorax apparent. CARDIOVASCULAR: Atherosclerotic calcifications identified primarily aortic arch. No significant interval change compared to the prior examination(s). OSSEOUS STRUCTURES: No significant abnormalities. VISUALIZED UPPER ABDOMEN: Normal. OTHER FINDINGS: Satisfactory position of nasogastric tube. IMPRESSION: Stable multifocal infiltrates primarily affecting right lung. Less pronounced changes identified left lung.
--- NOTE | 2018-06-08 12:06 | CP.PCM.PN ---
Subjective - Date & Time of Evaluation Date of Evaluation: 06/08/18 Time of Evaluation: 12:03 - Subjective Subjective: PGY-[address] Watkins No acute events noted overnight. Patient on bipap with 100 fi02 unable to appropriately answer questions - shook her head to all my questions. Abdominal drain with serosanguinous output and left foot wrapped and in boot. Objective - Vital Signs/Intake and Output Vital Signs (last 24 hours): Temp Pulse Resp BP Pulse Ox 98.6 F 71 20 76/33 L 87 L 06/08/18 04:00 06/08/18 10:46 06/08/18 11:20 06/08/18 10:46 06/08/18 11:20 Intake and Output: 06/08/18 06/08/18 06:59 18:59 Intake Total 600 Output Total 225 Balance 375 - Medications Medications: Current Medications Acetaminophen (Tylenol 325mg Tab) 650 mg PO Q6H PRN PRN Reason: Fever >100.4 F Last Admin: 05/30/18 01:30 Dose: 650 mg Acetylcysteine (Acetylcysteine 20%) 4 ml IH BIDRESP [facility] Last Admin: 06/08/18 08:13 Dose: 4 ml Albuterol/Ipratropium (Duoneb 3 Mg/0.5 Mg (3 Ml) Ud) 3 ml IH Q2H PRN PRN Reason: Shortness of Breath Amlodipine Besylate (Norvasc) 10 mg PO DAILY [facility] Last Admin: 06/02/18 09:34 Dose: Not Given Aspirin (Aspirin Chewable) 81 mg PO DAILY [facility] Last Admin: 06/08/18 09:45 Dose: 81 mg Atorvastatin Calcium (Lipitor) 40 mg PO QOTHERDAY [facility] Last Admin: 06/08/18 09:45 Dose: 40 mg Clonidine HCl (Catapres) 0.3 mg PO TID [facility] Last Admin: 06/03/18 10:50 Dose: Not Given Furosemide (Lasix) 40 mg IVP Q12 [facility] Last Admin: 06/08/18 09:48 Dose: Not Given Heparin Sodium (Porcine) (Heparin) 5,000 units SC Q8 [facility]; Protocol Last Admin: 06/08/18 05:49 Dose: 5,000 units Hydralazine HCl (Apresoline) 25 mg PO Q6H [facility] Last Admin: 06/02/18 05:37 Dose: Not Given Hydromorphone HCl (Dilaudid) 0.5 mg IVP Q4H PRN PRN Reason: Pain, moderate (4-7) Last Admin: 06/08/18 02:52 Dose: 0.5 mg Heparin Sodium/Sodium Chloride (Heparin 76888 Units/250ml 1/2 Normal Saline) 25,000 units in 250 mls @ 16.248 mls/hr IV .[id number] PRN; Protocol PRN Reason: ADJUST RATE PER PROTOCOL Last Titration: 05/31/18 10:20 Dose: 0 units/kg/hr, 0 mls/hr Linezolid (Zyvox 600mg/300ml D5w) 600 mg in 300 mls @ 200 mls/hr IVPB Q12 [facility]; Protocol Stop: 06/08/18 13:31 Last Admin: 06/08/18 09:46 Dose: 200 mls/hr Midazolam 100 mg/100ml in NS (Midazolam 100 Mg/100ml In Ns) 100 mg in 100 mls @ 4 mls/hr IV .Q24H PRN; Protocol PRN Reason: Agitation Meropenem/Sodium Chloride (Merrem Iv 500 Mg/Ns 50 Ml) 500 mg in 50 mls @ 100 mls/hr IVPB Q12 [facility]; Protocol Stop: 06/15/18 11:19 Insulin Human Lispro (Humalog High) 0 units SC ACHS [facility]; Protocol Last Admin: 06/08/18 07:51 Dose: Not Given Insulin Lispro Protam/Lispro Human (Humalog Mix 75/25) 10 units SC ACBD [facility] Last Admin: 06/08/18 07:52 Dose: Not Given Levalbuterol HCl (Xopenex) 1.25 mg IH [id number] [facility] Last Admin: 06/08/18 08:13 Dose: 1.25 mg Metoprolol Tartrate (Lopressor) 50 mg PO Q12H [facility] Last Admin: 05/30/18 01:30 Dose: 50 mg Metoprolol Tartrate (Lopressor) 5 mg IVP Q6H [facility] Last Admin: 06/08/18 10:46 Dose: Not Given Ondansetron HCl (Zofran Inj) 4 mg IVP Q6H PRN PRN Reason: Nausea/Vomiting Oxychlorosene Sodium (Clorpactin Wcs-90) 2 gm TOP DAILY [facility] Last Admin: 06/07/18 13:10 Dose: 2 gm Pantoprazole Sodium (Protonix Inj) 40 mg IVP DAILY [facility] Last Admin: 06/08/18 09:48 Dose: 40 mg Simethicone (Mylicon Chew Tab) 80 mg PO [facility] PRN PRN Reason: GI distress Last Admin: 05/31/18 09:48 Dose: 80 mg - Labs Labs: 06/08/18 06:30 06/08/18 06:30 PT 23.6 SECONDS (9.4-12.5) H 06/02/18 10:05 INR 2.09 06/02/18 10:05 APTT 34.5 Seconds (26.9-38.3) 06/02/18 10:05 - Additional Findings Additional findings: - Constitutional Appears: Non-toxic, No Acute Distress - Head Exam Head Exam: NORMAL INSPECTION, NORMOCEPHALIC - Eye Exam Eye Exam: Normal appearance - ENT Exam ENT Exam: Mucous Membranes Dry - Respiratory Exam Respiratory Exam: Respiratory Distress - Cardiovascular Exam Cardiovascular Exam: REGULAR RHYTHM, +S1, +S2. absent: Tachycardia - GI/Abdominal Exam GI & Abdominal Exam: Soft. absent: Distended, Firm Additional comments: right joseph drain with bloody drainage noted epigastric joseph drain also with bloody draniage noted dressing c/d/i midline stapes s/p henia repair - Extremities Exam Additional comments: swelling noted in upper and lower b/l extremities left foot wrapped and in boot - Neurological Exam Neurological Exam: absent: Alert, Awake - Skin Skin Exam: Dry, Intact Assessment and Plan - Assessment and Plan (Free Text) Plan: -GILBERTO on CKD3b likely 2/2 to contrast induced nephropathy -Obstruction likely secondary to strangulated ventral hernia -Hypochromic Microcytic Anemia -CKD 3b -Hypertension Plan: Patient's vitals, blood work, and imaging noted in EMR. s/p exlap, small bowel resection, incidental appendectomy, with jejunocecal anastamosis on 06/02/18. Patient on bipap; NGT in place. Creatinine stable at 2.6-2.8 at this time which is an improvement. She is making urine. GILBERTO likely secondary to contrast induced nephropathy at first coupled with volume depletion in light of patient's multiple episodes of emesis and decreased PO intake prior to going to the OR in light of the obstruction. Avoid nephrotoxic drugs. Currently holding Novrasc, Lopressor, Labetalol, Hydralazine and Catapres in light of low BP. Would prefer to give clonidine as primary prn anti-hypertensive rather than hydralazine. Patient on Linezolid and Meropenem as per ID - we will need to monitor her acid/base status as linezolid can cause anion-gap metabolic acidosis. Venofer 200mg ivpb given 06/08/18 to treat iron deficiency anemia. Will continue to monitor urine output closely. Continue management as per MICU team. Discussed with Dr. Watkins
[2018-06-08] MEDS: MEROPENEM 500 MG in NS 500 MG/50 ML BAG IVPB SCH ×2 (12:15→21:07)
--- NOTE | 2018-06-08 12:36 | RAD ---
Date of service: 06/08/2018 HISTORY: intubated COMPARISON: Earlier same day FINDINGS: LUNGS: The endotracheal and nasogastric tubes are in satisfactory position. There is a right IJ line terminating at the junction of the SVC and right atrium. There is no pneumothorax. Extensive right lower lobe infiltrate and diffuse interstitial infiltrate in both lungs PLEURA: As above CARDIOVASCULAR: Mild aortic calcification Normal cardiac size. No pulmonary vascular congestion. OSSEOUS STRUCTURES: No significant abnormalities. VISUALIZED UPPER ABDOMEN: Normal. OTHER FINDINGS: None. IMPRESSION: The endotracheal and nasogastric tubes are in satisfactory position. There is a right IJ line terminating at the junction of the SVC and right atrium. There is no pneumothorax. Extensive right lower lobe infiltrate and diffuse interstitial infiltrate in both lungs
[2018-06-08] MEDS ORDERED: Dextrose 50% SYRINGE Inj (50 ml) IVP ONE ×2 (13:02→15:49)
[2018-06-08] MEDS ORDERED: Insulin Regular 1 UNITS/0.01 ML ML SC ONE ×2 (13:03→15:49)
--- NOTE | 2018-06-08 13:16 | CP.PCM.PN ---
Subjective - Date & Time of Evaluation Date of Evaluation: 06/08/18 Time of Evaluation: 09:50 - Subjective Subjective: Noted events this morning, patient became lethargic, developed respiratory distress, became hypotensive as well. Discussed with Dr. Horowitz (dirt bike mechanic) and patient is to be intubated, placed on pressors. Patient probably aspirated coffee-ground material. Objective - Vital Signs/Intake and Output Vital Signs (last 24 hours): Temp Pulse Resp BP Pulse Ox 98.7 F 110 H 24 181/75 H 87 L 06/07/18 04:00 06/07/18 12:00 06/07/18 06:01 06/07/18 13:36 06/07/18 06:01 Intake and Output: 06/07/18 06/07/18 06:59 18:59 Intake Total 600 Output Total 965 Balance -365 - Medications Medications: Current Medications Acetaminophen (Tylenol 325mg Tab) 650 mg PO Q6H PRN PRN Reason: Fever >100.4 F Last Admin: 05/30/18 01:30 Dose: 650 mg Acetylcysteine (Acetylcysteine 20%) 4 ml IH BIDRESP [facility] Last Admin: 06/07/18 13:18 Dose: 4 ml Albuterol/Ipratropium (Duoneb 3 Mg/0.5 Mg (3 Ml) Ud) 3 ml IH Q2H PRN PRN Reason: Shortness of Breath Amlodipine Besylate (Norvasc) 10 mg PO DAILY [facility] Last Admin: 06/02/18 09:34 Dose: Not Given Aspirin (Aspirin Chewable) 81 mg PO DAILY [facility] Last Admin: 06/07/18 13:10 Dose: 81 mg Atorvastatin Calcium (Lipitor) 40 mg PO QOTHERDAY [facility] Last Admin: 06/06/18 10:19 Dose: 40 mg Clonidine HCl (Catapres) 0.3 mg PO TID [facility] Last Admin: 06/03/18 10:50 Dose: Not Given Dextrose (Dextrose 50% Inj) 50 ml IVP ONCE PRN PRN Reason: Hypoglycemia Furosemide (Lasix) 40 mg IVP Q12 [facility] Last Admin: 06/07/18 13:36 Dose: 40 mg Heparin Sodium (Porcine) (Heparin) 5,000 units SC Q8 [facility]; Protocol Last Admin: 06/07/18 15:06 Dose: 5,000 units Hydralazine HCl (Apresoline) 10 mg IV Q6H PRN PRN Reason: Systolic Blood Pressure Last Admin: 06/06/18 08:49 Dose: 10 mg Hydralazine HCl (Apresoline) 25 mg PO Q6H [facility] Last Admin: 06/02/18 05:37 Dose: Not Given Hydromorphone HCl (Dilaudid) 0.5 mg IVP Q4H PRN PRN Reason: Pain, moderate (4-7) Last Admin: 06/07/18 10:12 Dose: 0.5 mg Heparin Sodium/Sodium Chloride (Heparin 87490 Units/250ml 1/2 Normal Saline) 25,000 units in 250 mls @ 16.248 mls/hr IV .[id number] PRN; Protocol PRN Reason: ADJUST RATE PER PROTOCOL Last Titration: 05/31/18 10:20 Dose: 0 units/kg/hr, 0 mls/hr Metronidazole (Flagyl) 500 mg in 100 mls @ 100 mls/hr IVPB Q8 [facility]; Protocol Last Admin: 06/07/18 15:08 Dose: 100 mls/hr Linezolid (Zyvox 600mg/300ml D5w) 600 mg in 300 mls @ 200 mls/hr IVPB Q12 [facility]; Protocol Stop: 06/08/18 13:31 Last Admin: 06/07/18 10:06 Dose: 200 mls/hr Aztreonam (Azactam 1 Gm) 100 mls @ 100 mls/hr IVPB Q12 [facility]; Protocol Stop: 06/09/18 22:01 Last Admin: 06/07/18 10:05 Dose: 100 mls/hr Insulin Human Lispro (Humalog High) 0 units SC ACHS [facility]; Protocol Last Admin: 06/07/18 13:11 Dose: Not Given Insulin Lispro Protam/Lispro Human (Humalog Mix 75/25) 10 units SC ACBD [facility] Last Admin: 06/07/18 13:13 Dose: Not Given Isosorbide Mononitrate (Imdur Er) 30 mg PO 0600 [facility] Last Admin: 06/03/18 05:08 Dose: Not Given Labetalol HCl (Trandate) 200 mg PO BID [facility] Last Admin: 06/02/18 09:34 Dose: Not Given Levalbuterol HCl (Xopenex) 1.25 mg IH [id number] [facility] Last Admin: 06/07/18 13:18 Dose: 1.25 mg Metoprolol Tartrate (Lopressor) 50 mg PO Q12H [facility] Last Admin: 05/30/18 01:30 Dose: 50 mg Metoprolol Tartrate (Lopressor) 5 mg IVP Q6H [facility] Last Admin: 06/07/18 12:00 Dose: 5 mg Nitroglycerin (Nitro-Bid 2% Oint) 1 ea TOP Q8H [facility] Last Admin: 06/07/18 12:00 Dose: 1 ea Ondansetron HCl (Zofran Inj) 4 mg IVP Q6H PRN PRN Reason: Nausea/Vomiting Oxychlorosene Sodium (Clorpactin Wcs-90) 2 gm TOP DAILY [facility] Last Admin: 06/07/18 13:10 Dose: 2 gm Pantoprazole Sodium (Protonix Inj) 40 mg IVP DAILY [facility] Last Admin: 06/07/18 10:15 Dose: 40 mg Simethicone (Mylicon Chew Tab) 80 mg PO HS PRN PRN Reason: GI distress Last Admin: 05/31/18 09:48 Dose: 80 mg - Labs Labs: 06/07/18 08:20 06/07/18 08:20 PT 23.6 SECONDS (9.4-12.5) H 06/02/18 10:05 INR 2.09 06/02/18 10:05 APTT 34.5 Seconds (26.9-38.3) 06/02/18 10:05 - Constitutional Appears: In Acute Distress, Chronically Ill, Other (lethargic) - Respiratory Exam Respiratory Exam: Decreased Breath Sounds, Rales (scattered) - Cardiovascular Exam Cardiovascular Exam: +S1, +S2 - GI/Abdominal Exam GI & Abdominal Exam: Soft. 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 Horowitz again after the patient was intubated, found to have coffee-ground material upon intubation of the airway - probable aspiration pneumonia - as discussed with Dr. Horowitz, since the patient is already intubated, the patient can be started on Merrem despite having penicillin allergy, continue Zyvox, add Levaquin and will get sputum cx, follow up repeat blood cx; patient will also get central line and get vasopressors overall prognosis is getting worse will monitor clinically
[2018-06-08 13:51] LABS: ARTERIAL BLOOD GAS HCO3 5.1 mmol/L (21-28); ARTERIAL BLOOD GAS HEMOGLOBIN 6.5 g/dL (11.7-17.4); ARTERIAL BLOOD GAS O2 CAPACITY 8.9 mL/dl (16-24); ARTERIAL BLOOD GAS O2 CONTENT 8.5 ML/dl (15-23); ARTERIAL BLOOD GAS O2 SAT 95.2 % (95-98); ARTERIAL BLOOD GAS PCO2 28 mm/Hg (35-45); ARTERIAL BLOOD GAS PH 6.87 (7.35-7.45)
[2018-06-08] MEDS ORDERED: Sodium Bicarbonate 8.4% 100 MEQ in Dextrose 5% In Water 1,000 ML IV SCH (14:00)
[2018-06-08] MEDS ORDERED: Aztreonam 1 Gm in NS 100mL 100 ML IVPB SCH (14:00)
[2018-06-08] MEDS ORDERED: Sodium Bicarbonate (8.4%) 50 Meq Syringe IVP ONE ×2 (14:06→14:14)
--- NOTE | 2018-06-08 14:14 | CP.CCUPN ---
<CyndyJohn - Last Filed: 06/08/18 14:16> CCU Subjective - Physician Review Subjective (Free Text): ICU Note for Dr. Horowitz Patient was seen and examined at bedside. Patient was noted to be unresponsive this AM, according to nursing staff, patient is generally responsive and conversant. Patient was also hypotensive and failed to respond to fluid bolus. Patient status was discussed with patient's son who gave consent for central line placement and ET tube. ROS unobtainable 2/2 patient's current mental status. CCU Objective - Vital Signs / Intake & Output Vital Signs (Last 4 hours): Vital Signs Pulse Resp BP Pulse Ox 06/08/18 11:20 20 87 L 06/08/18 10:46 71 76/33 L Intake and Output (Last 8hrs): Intake & Output 06/07/18 06/08/18 06/08/18 22:59 06:59 14:59 Intake Total 410 600 Output Total 585 225 Balance -175 375 Intake: IV 410 600 Left Wrist 10 Right Upper arm 400 600 Oral 0 Output: Drainage 85 75 Left 45 60 Right 40 15 Urine 500 150 Urethral (Kelley) 150 Urine, Voided 500 Other: # Bowel Movements 0 - Physical Exam Physical Exam Limitations: Positive for: Altered Mental Status Head: Positive for: Atraumatic, Normocephalic Pupils: Positive for: Sluggish Conjunctiva: Positive for: Icteric Pharnyx: Positive for: Other (coffee ground emesis noted during intubation) Neck: Positive for: Normal Range of Motion Respiratory/Chest: Positive for: Decreased Breath Sounds (left side), Rales, Rhonchi. Negative for: Accessory Muscle Use, Wheezes Cardiovascular: Positive for: Normal S1, S2, Irregular Rhythm. Negative for: Murmurs Abdomen: Positive for: Normal Bowel Sounds, Other (dressing is non draining/bleeding). Negative for: Tenderness, Distention, Peritoneal Signs Back: Positive for: Normal Inspection Upper Extremity: Positive for: Normal Inspection. Negative for: Cyanosis, Edema Lower Extremity: Positive for: Normal Inspection, Normal ROM, Tenderness, Other (Grangrenous left 2nd toe noted). Negative for: Edema, CALF TENDERNESS, Marek's Sign Neurological: Positive for: Other (intubated) Skin: Positive for: Dry, Cold, Pale. Negative for: Rashes - Medications Active Medications: Active Medications Generic Name Dose Route Start Last Admin Trade Name Freq PRN Reason Stop Dose Admin Acetaminophen 650 mg 05/21/18 20:42 05/30/18 01:30 Tylenol 325mg Tab PO 650 mg Q6H PRN Administration Fever >100.4 F Acetylcysteine 4 ml 06/07/18 08:30 06/08/18 08:13 Acetylcysteine 20% IH 4 ml BIDRESP PEYMAN Administration Albuterol/Ipratropium 3 ml 06/02/18 18:21 Duoneb 3 Mg/0.5 Mg (3 Ml) Ud IH Q2H PRN Shortness of Breath Amlodipine Besylate 10 mg 05/22/18 10:00 06/02/18 09:34 Norvasc PO Not Given DAILY [facility] Aspirin 81 mg 05/28/18 10:00 06/08/18 09:45 Aspirin Chewable PO 81 mg DAILY PEYMAN Administration Atorvastatin Calcium 40 mg 05/23/18 10:00 06/08/18 09:45 Lipitor PO 40 mg QOTHERDAY [facility] Administration Clonidine HCl 0.3 mg 05/22/18 10:00 06/03/18 10:50 Catapres PO Not Given TID PEYMAN Furosemide 40 mg 06/04/18 22:00 06/08/18 09:48 Lasix IVP Not Given Q12 [facility] Heparin Sodium (Porcine) 5,000 units 06/02/18 22:00 06/08/18 05:49 Heparin SC 5,000 units Q8 PEYMAN Administration Protocol Hydralazine HCl 25 mg 05/31/18 06:15 06/02/18 05:37 Apresoline PO Not Given Q6H PEYMAN Hydromorphone HCl 0.5 mg 06/03/18 11:47 06/08/18 02:52 Dilaudid IVP 0.5 mg Q4H PRN Administration Pain, moderate (4-7) Midazolam 100 mg/100ml in NS 100 mg in 100 mls @ 4 mls/hr 06/08/18 10:58 Midazolam 100 Mg/100ml In Ns IV .Q24H PRN Agitation Protocol 4 MG/HR Meropenem/Sodium Chloride 500 mg in 50 mls @ 100 mls/hr 06/08/18 11:18 06/08/18 12:15 Merrem Iv 500 Mg/Ns 50 Ml IVPB 06/15/18 11:19 100 mls/hr Q12 PEYMAN Administration Protocol Vasopressin 20 units/ Sodium 101 mls @ 9.09 mls/hr 06/08/18 13:45 Chloride IV .Q11H7M PEYMAN Protocol 0.03 U/MIN Sodium Bicarbonate 100 meq/ 1,100 mls @ 100 mls/hr 06/08/18 14:00 Dextrose IV .Q11H PEYMAN Insulin Human Lispro 0 units 05/21/18 22:00 06/08/18 12:05 Humalog High SC Not Given ACHS [facility] Protocol Insulin Lispro Protam/Lispro Human 10 units 05/25/18 16:30 06/08/18 07:52 Humalog Mix 75/25 SC Not Given ACBD [facility] Levalbuterol HCl 1.25 mg 05/26/18 14:00 06/08/18 13:57 Xopenex IH 1.25 mg [id number] PEYMAN Administration Metoprolol Tartrate 50 mg 05/28/18 13:30 05/30/18 01:30 Lopressor PO 50 mg Q12H PEYMAN Administration Ondansetron HCl 4 mg 06/01/18 10:58 Zofran Inj IVP Q6H PRN Nausea/Vomiting Oxychlorosene Sodium 2 gm 06/02/18 10:00 06/07/18 13:10 Clorpactin Wcs-90 TOP 2 gm DAILY PEYMAN Administration Pantoprazole Sodium 40 mg 06/08/18 13:15 Protonix Inj IV Q12H [facility] Simethicone 80 mg 05/30/18 04:02 05/31/18 09:48 Mylicon Chew Tab PO 80 mg PCHS PRN Administration GI distress - Patient Studies Lab Studies: Microbiology Studies 06/07/18 10:40 Blood Culture - Preliminary Blood-Venous NO GROWTH AFTER 24 HOURS 06/07/18 10:15 Blood Culture - Preliminary Blood-Venous NO GROWTH AFTER 24 HOURS Lab Studies 06/08/18 06/08/18 06/08/18 Range/Units 13:35 12:30 07:17 WBC (4.5-11.0) 10^3/uL RBC (3.5-6.1) 10^6/uL Hgb (12.0-16.0) g/dL Hct (36.0-48.0) % MCV (80.0-105.0) fl MCH (25.0-35.0) pg MCHC (31.0-37.0) g/dl RDW (11.5-14.5) % Plt Count (120.0-450.0) 10^3/uL MPV (7.0-11.0) fl Neut % (Auto) (50.0-68.0) % Lymph % (Auto) (22.0-35.0) % Barton % (Auto) (1.0-6.0) % Eos % (Auto) (1.5-5.0) % Baso % (Auto) (0.0-3.0) % Lymph # (Auto) (1.2-3.4) Barton # (Auto) (0.1-0.6) Eos # (Auto) (0.0-0.7) Baso # (Auto) (0.0-2.0) K/mm3 Absolute Neuts (auto) (1.4-6.5) pCO2 28 L (35-45) mm/Hg pO2 78.0 L (80-100) mm/Hg HCO3 5.1 L* (21-28) mmol/L ABG pH 6.87 L* (7.35-7.45) ABG Total CO2 6.0 L (22-28) mmol.L ABG O2 Saturation 95.2 (95-98) % ABG O2 Content 8.5 L (15-23) ML/dl ABG Base Excess -26.1 L (-2.0-3.0) mmol/L ABG Hemoglobin 6.5 L (11.7-17.4) g/dL ABG Carboxyhemoglobin 2.9 H (0.5-1.5) % POC ABG HHb (Measured) 4.6 (0-5) % ABG Methemoglobin 1.7 (0.0-3.0) % ABG O2 Capacity 8.9 L (16-24) mL/dl Hgb O2 Saturation 90.9 L (95.0-98.0) % FiO2 100.0 % Crit Value Called To catherine Cerna Crit Value Called By katie Barbosa Blood Gas Notified Time 1349 Sodium (132-148) mmol/L Potassium (3.6-5.0) mmol/L Chloride (98-107) mmol/L Carbon Dioxide (21-33) mmol/L Anion Gap (10-20) BUN (7-21) mg/dL Creatinine (0.7-1.2) mg/dl Est GFR ( Amer) Est GFR (Non-Af Amer) POC Glucose (mg/dL) 145 H (65-110) mg/dL Random Glucose (70-110) mg/dL Calcium (8.4-10.5) mg/dL Total Bilirubin (0.2-1.3) mg/dL AST (14-36) U/L ALT (7-56) U/L Alkaline Phosphatase (38-126) U/L Total Protein (5.8-8.3) g/dL Albumin (3.0-4.8) g/dL Globulin gm/dL Albumin/Globulin Ratio (1.1-1.8) Blood Type B POSITIVE Antibody Screen Negative Crossmatch See Detail BBK History Checked Patient has bt 06/08/18 06/08/18 06/07/18 Range/Units 06:30 06:30 21:32 WBC 22.9 H (4.5-11.0) 10^3/uL RBC 3.04 L (3.5-6.1) 10^6/uL Hgb 8.1 L (12.0-16.0) g/dL Hct 26.5 L (36.0-48.0) % MCV 87.2 D (80.0-105.0) fl MCH 26.6 (25.0-35.0) pg MCHC 30.6 L (31.0-37.0) g/dl RDW 19.6 H (11.5-14.5) % Plt Count 210 (120.0-450.0) 10^3/uL MPV 9.8 (7.0-11.0) fl Neut % (Auto) 94.4 H (50.0-68.0) % Lymph % (Auto) 3.2 L (22.0-35.0) % Barton % (Auto) 2.3 (1.0-6.0) % Eos % (Auto) 0.0 L (1.5-5.0) % Baso % (Auto) 0.1 (0.0-3.0) % Lymph # (Auto) 0.7 L (1.2-3.4) Barton # (Auto) 0.5 (0.1-0.6) Eos # (Auto) 0.0 (0.0-0.7) Baso # (Auto) 0.02 (0.0-2.0) K/mm3 Absolute Neuts (auto) 21.58 H (1.4-6.5) pCO2 (35-45) mm/Hg pO2 (80-100) mm/Hg HCO3 (21-28) mmol/L ABG pH (7.35-7.45) ABG Total CO2 (22-28) mmol.L ABG O2 Saturation (95-98) % ABG O2 Content (15-23) ML/dl ABG Base Excess (-2.0-3.0) mmol/L ABG Hemoglobin (11.7-17.4) g/dL ABG Carboxyhemoglobin (0.5-1.5) % POC ABG HHb (Measured) (0-5) % ABG Methemoglobin (0.0-3.0) % ABG O2 Capacity (16-24) mL/dl Hgb O2 Saturation (95.0-98.0) % FiO2 % Crit Value Called To Crit Value Called By Blood Gas Notified Time Sodium 145 (132-148) mmol/L Potassium 5.5 H (3.6-5.0) mmol/L Chloride 117 H (98-107) mmol/L Carbon Dioxide 12 L (21-33) mmol/L Anion Gap 21 H (10-20) BUN 93 H (7-21) mg/dL Creatinine 2.8 H (0.7-1.2) mg/dl Est GFR ( Amer) 20 Est GFR (Non-Af Amer) 17 POC Glucose (mg/dL) 214 H (65-110) mg/dL Random Glucose 166 H (70-110) mg/dL Calcium 8.3 L (8.4-10.5) mg/dL Total Bilirubin 5.1 H (0.2-1.3) mg/dL AST 72 H D (14-36) U/L ALT 17 (7-56) U/L Alkaline Phosphatase 83 (38-126) U/L Total Protein 5.8 (5.8-8.3) g/dL Albumin 2.5 L (3.0-4.8) g/dL Globulin 3.3 gm/dL Albumin/Globulin Ratio 0.8 L (1.1-1.8) Blood Type Antibody Screen Crossmatch BBK History Checked 06/07/18 06/07/18 06/07/18 Range/Units 16:29 11:43 07:23 WBC (4.5-11.0) 10^3/uL RBC (3.5-6.1) 10^6/uL Hgb (12.0-16.0) g/dL Hct (36.0-48.0) % MCV (80.0-105.0) fl MCH (25.0-35.0) pg MCHC (31.0-37.0) g/dl RDW (11.5-14.5) % Plt Count (120.0-450.0) 10^3/uL MPV (7.0-11.0) fl Neut % (Auto) (50.0-68.0) % Lymph % (Auto) (22.0-35.0) % Barton % (Auto) (1.0-6.0) % Eos % (Auto) (1.5-5.0) % Baso % (Auto) (0.0-3.0) % Lymph # (Auto) (1.2-3.4) Barton # (Auto) (0.1-0.6) Eos # (Auto) (0.0-0.7) Baso # (Auto) (0.0-2.0) K/mm3 Absolute Neuts (auto) (1.4-6.5) pCO2 (35-45) mm/Hg pO2 (80-100) mm/Hg HCO3 (21-28) mmol/L ABG pH (7.35-7.45) ABG Total CO2 (22-28) mmol.L ABG O2 Saturation (95-98) % ABG O2 Content (15-23) ML/dl ABG Base Excess (-2.0-3.0) mmol/L ABG Hemoglobin (11.7-17.4) g/dL ABG Carboxyhemoglobin (0.5-1.5) % POC ABG HHb (Measured) (0-5) % ABG Methemoglobin (0.0-3.0) % ABG O2 Capacity (16-24) mL/dl Hgb O2 Saturation (95.0-98.0) % FiO2 % Crit Value Called To Crit Value Called By Blood Gas Notified Time Sodium (132-148) mmol/L Potassium (3.6-5.0) mmol/L Chloride (98-107) mmol/L Carbon Dioxide (21-33) mmol/L Anion Gap (10-20) BUN (7-21) mg/dL Creatinine (0.7-1.2) mg/dl Est GFR ( Amer) Est GFR (Non-Af Amer) POC Glucose (mg/dL) 183 H 177 H 188 H (65-110) mg/dL Random Glucose (70-110) mg/dL Calcium (8.4-10.5) mg/dL Total Bilirubin (0.2-1.3) mg/dL AST (14-36) U/L ALT (7-56) U/L Alkaline Phosphatase (38-126) U/L Total Protein (5.8-8.3) g/dL Albumin (3.0-4.8) g/dL Globulin gm/dL Albumin/Globulin Ratio (1.1-1.8) Blood Type Antibody Screen Crossmatch BBK History Checked 06/02/18 Range/Units 10:30 WBC (4.5-11.0) 10^3/uL RBC (3.5-6.1) 10^6/uL Hgb (12.0-16.0) g/dL Hct (36.0-48.0) % MCV (80.0-105.0) fl MCH (25.0-35.0) pg MCHC (31.0-37.0) g/dl RDW (11.5-14.5) % Plt Count (120.0-450.0) 10^3/uL MPV (7.0-11.0) fl Neut % (Auto) (50.0-68.0) % Lymph % (Auto) (22.0-35.0) % Barton % (Auto) (1.0-6.0) % Eos % (Auto) (1.5-5.0) % Baso % (Auto) (0.0-3.0) % Lymph # (Auto) (1.2-3.4) Barton # (Auto) (0.1-0.6) Eos # (Auto) (0.0-0.7) Baso # (Auto) (0.0-2.0) K/mm3 Absolute Neuts (auto) (1.4-6.5) pCO2 (35-45) mm/Hg pO2 (80-100) mm/Hg HCO3 (21-28) mmol/L ABG pH (7.35-7.45) ABG Total CO2 (22-28) mmol.L ABG O2 Saturation (95-98) % ABG O2 Content (15-23) ML/dl ABG Base Excess (-2.0-3.0) mmol/L ABG Hemoglobin (11.7-17.4) g/dL ABG Carboxyhemoglobin (0.5-1.5) % POC ABG HHb (Measured) (0-5) % ABG Methemoglobin (0.0-3.0) % ABG O2 Capacity (16-24) mL/dl Hgb O2 Saturation (95.0-98.0) % FiO2 % Crit Value Called To Crit Value Called By Blood Gas Notified Time Sodium (132-148) mmol/L Potassium (3.6-5.0) mmol/L Chloride (98-107) mmol/L Carbon Dioxide (21-33) mmol/L Anion Gap (10-20) BUN (7-21) mg/dL Creatinine (0.7-1.2) mg/dl Est GFR ( Amer) Est GFR (Non-Af Amer) POC Glucose (mg/dL) (65-110) mg/dL Random Glucose (70-110) mg/dL Calcium (8.4-10.5) mg/dL Total Bilirubin (0.2-1.3) mg/dL AST (14-36) U/L ALT (7-56) U/L Alkaline Phosphatase (38-126) U/L Total Protein (5.8-8.3) g/dL Albumin (3.0-4.8) g/dL Globulin gm/dL Albumin/Globulin Ratio (1.1-1.8) Blood Type Antibody Screen Crossmatch See Detail BBK History Checked Laboratory Results - last 24 hr 06/02/18 06/07/18 06/07/18 10:30 07:23 11:43 WBC RBC Hgb Hct MCV MCH MCHC RDW Plt Count MPV Neut % (Auto) Lymph % (Auto) Barton % (Auto) Eos % (Auto) Baso % (Auto) Lymph # (Auto) Barton # (Auto) Eos # (Auto) Baso # (Auto) Absolute Neuts (auto) pCO2 pO2 HCO3 ABG pH ABG Total CO2 ABG O2 Saturation ABG O2 Content ABG Base Excess ABG Hemoglobin ABG Carboxyhemoglobin POC ABG HHb (Measured) ABG Methemoglobin ABG O2 Capacity Hgb O2 Saturation FiO2 Crit Value Called To Crit Value Called By Blood Gas Notified Time Sodium Potassium Chloride Carbon Dioxide Anion Gap BUN Creatinine Est GFR ( Amer) Est GFR (Non-Af Amer) POC Glucose (mg/dL) 188 H 177 H Random Glucose Calcium Total Bilirubin AST ALT Alkaline Phosphatase Total Protein Albumin Globulin Albumin/Globulin Ratio Blood Type Antibody Screen Crossmatch See Detail BBK History Checked 06/07/18 06/07/18 06/08/18 16:29 21:32 06:30 WBC 22.9 H RBC 3.04 L Hgb 8.1 L Hct 26.5 L MCV 87.2 D MCH 26.6 MCHC 30.6 L RDW 19.6 H Plt Count 210 MPV 9.8 Neut % (Auto) 94.4 H Lymph % (Auto) 3.2 L Barton % (Auto) 2.3 Eos % (Auto) 0.0 L Baso % (Auto) 0.1 Lymph # (Auto) 0.7 L Barton # (Auto) 0.5 Eos # (Auto) 0.0 Baso # (Auto) 0.02 Absolute Neuts (auto) 21.58 H pCO2 pO2 HCO3 ABG pH ABG Total CO2 ABG O2 Saturation ABG O2 Content ABG Base Excess ABG Hemoglobin ABG Carboxyhemoglobin POC ABG HHb (Measured) ABG Methemoglobin ABG O2 Capacity Hgb O2 Saturation FiO2 Crit Value Called To Crit Value Called By Blood Gas Notified Time Sodium Potassium Chloride Carbon Dioxide Anion Gap BUN Creatinine Est GFR ( Amer) Est GFR (Non-Af Amer) POC Glucose (mg/dL) 183 H 214 H Random Glucose Calcium Total Bilirubin AST ALT Alkaline Phosphatase Total Protein Albumin Globulin Albumin/Globulin Ratio Blood Type Antibody Screen Crossmatch BBK History Checked 06/08/18 06/08/18 06/08/18 06:30 07:17 12:30 WBC RBC Hgb Hct MCV MCH MCHC RDW Plt Count MPV Neut % (Auto) Lymph % (Auto) Barton % (Auto) Eos % (Auto) Baso % (Auto) Lymph # (Auto) Barton # (Auto) Eos # (Auto) Baso # (Auto) Absolute Neuts (auto) pCO2 pO2 HCO3 ABG pH ABG Total CO2 ABG O2 Saturation ABG O2 Content ABG Base Excess ABG Hemoglobin ABG Carboxyhemoglobin POC ABG HHb (Measured) ABG Methemoglobin ABG O2 Capacity Hgb O2 Saturation FiO2 Crit Value Called To Crit Value Called By Blood Gas Notified Time Sodium 145 Potassium 5.5 H Chloride 117 H Carbon Dioxide 12 L Anion Gap 21 H BUN 93 H Creatinine 2.8 H Est GFR ( Amer) 20 Est GFR (Non-Af Amer) 17 POC Glucose (mg/dL) 145 H Random Glucose 166 H Calcium 8.3 L Total Bilirubin 5.1 H AST 72 H D ALT 17 Alkaline Phosphatase 83 Total Protein 5.8 Albumin 2.5 L Globulin 3.3 Albumin/Globulin Ratio 0.8 L Blood Type B POSITIVE Antibody Screen Negative Crossmatch See Detail BBK History Checked Patient has bt 06/08/18 13:35 WBC RBC Hgb Hct MCV MCH MCHC RDW Plt Count MPV Neut % (Auto) Lymph % (Auto) Barton % (Auto) Eos % (Auto) Baso % (Auto) Lymph # (Auto) Barton # (Auto) Eos # (Auto) Baso # (Auto) Absolute Neuts (auto) pCO2 28 L pO2 78.0 L HCO3 5.1 L* ABG pH 6.87 L* ABG Total CO2 6.0 L ABG O2 Saturation 95.2 ABG O2 Content 8.5 L ABG Base Excess -26.1 L ABG Hemoglobin 6.5 L ABG Carboxyhemoglobin 2.9 H POC ABG HHb (Measured) 4.6 ABG Methemoglobin 1.7 ABG O2 Capacity 8.9 L Hgb O2 Saturation 90.9 L FiO2 100.0 Crit Value Called To catherine Cerna Crit Value Called By katie Barbosa Blood Gas Notified Time 1349 Sodium Potassium Chloride Carbon Dioxide Anion Gap BUN Creatinine Est GFR ( Amer) Est GFR (Non-Af Amer) POC Glucose (mg/dL) Random Glucose Calcium Total Bilirubin AST ALT Alkaline Phosphatase Total Protein Albumin Globulin Albumin/Globulin Ratio Blood Type Antibody Screen Crossmatch BBK History Checked Radiology Impressions: Radiology Impressions Chest X-Ray 06/08/18 05:00 IMPRESSION: Stable multifocal infiltrates primarily affecting right lung. Less pronounced changes identified left lung. Chest X-Ray 06/08/18 11:12 IMPRESSION: The endotracheal and nasogastric tubes are in satisfactory position. There is a right IJ line terminating at the junction of the SVC and right atrium. There is no pneumothorax. Extensive right lower lobe infiltrate and diffuse interstitial infiltrate in both lungs Fingerstick Blood Sugar Results: 94 Assessment/Plan - Assessment and Plan (Free Text) Assessment: 67 year old with past medical history of type II diabetes mellitus, HTN, HLD, CAD, atrial fibrillation on coumadin, abdominal hernia, CVA who was intubated for hypoxic respiratory failure 2/2 cardiogenic vs non cardiogenic pulmonary edema and subsequently extubated. POD #6 for incarcerated ventral hernia surgery with small bowel resection and jejunocecal anastamosis for necrotic bowel. However, today patient was found to be non-responsive, acidotic, and hypotensive. Patient was intubated to protect her airway. Central line was placed to provide pressor support. 1. Hypercapnic Respiratory Failure 2. Carbon Dioxide Narcosis 3. Septic shock 2/2 PNA vs left 2nd toe osteomyelitis 4. Aspiration PNA 5. SBO 2/2 ventral hernia s/p repair reanastamosis 6. GILBERTO 2/2 MARIE 7. Hyperkalemia 8. Chronic A-fib Plan: Neuro - AMS likely 2/2 CO2 narcosis - Will cont to monitor mental status Cardio - TLC placed - Levophed and Vasopressin - Lasix 60 mg once - Lasix 40 mg BID - Hold home anti-hypertensives - Cardio consulted - Maintain MAP > 65 Pulm - CXR shows extensive RLL infiltrate and b/l diffuse interstitial infiltrate - Worsening PNA likely 2/2 aspiration - Intubated for airway protection with hypercapnic respiratory failure - Cont mechanical ventilation - Daily CXR and ABG - Maintain O2 sat > 90% GI - POD6 status post colectomy with jejunocecal anastamosis for necrotic bowel - GI consulted; discussed coffee ground emesis on intubation, recommended BID PPI as long as Hgb is stable - Surgery consulted - Protonix BID - NPO Renal - BUN/Cr stable - Cont to monitor I's and O's - ABG pH 6.87 with HCO3 5 - 2 amps bicarb and bicarb ggt started - K 5.5; D50+insulin ordered - Replete labs in PM - Nephro following - Maintain euvolemia ID - Left foot wound cx positive for corynebacterium - Merrem for PNA - Zyvox for foot wound - ID consulted - Podiatry following for osteo of 2nd left toe Endo - Humalog 75/25 and sliding scale - Accuchecks - Maintain euglycemia Heme - Resume anticoagulation when cleared by surgery for A.fib Patient seen and discussed in detail with Dr. Horowitz. Chris Naylor, DO PGY2 <Maribel Horowitz - Last Filed: 06/08/18 16:39> CCU Objective - Vital Signs / Intake & Output Vital Signs (Last 4 hours): Vital Signs BP 06/08/18 13:45 81/29 L Intake and Output (Last 8hrs): Intake & Output 06/08/18 06/08/18 06/08/18 06:59 14:59 22:59 Intake Total 600 Output Total 225 Balance 375 Intake: IV 600 Right Upper arm 600 Output: Drainage 75 Left 60 Right 15 Urine 150 Urethral (Kelley) 150 - Medications Active Medications: Active Medications Generic Name Dose Route Start Last Admin Trade Name Freq PRN Reason Stop Dose Admin Acetaminophen 650 mg 05/21/18 20:42 05/30/18 01:30 Tylenol 325mg Tab PO 650 mg Q6H PRN Administration Fever >100.4 F Acetylcysteine 4 ml 06/07/18 08:30 06/08/18 08:13 Acetylcysteine 20% IH 4 ml BIDRESP PEYMAN Administration Albuterol/Ipratropium 3 ml 06/02/18 18:21 Duoneb 3 Mg/0.5 Mg (3 Ml) Ud IH Q2H PRN Shortness of Breath Amlodipine Besylate 10 mg 05/22/18 10:00 06/02/18 09:34 Norvasc PO Not Given DAILY PEYMAN Aspirin 81 mg 05/28/18 10:00 06/08/18 09:45 Aspirin Chewable PO 81 mg DAILY PEYMAN Administration Atorvastatin Calcium 40 mg 05/23/18 10:00 06/08/18 09:45 Lipitor PO 40 mg QOTHERDAY PEYMAN Administration Clonidine HCl 0.3 mg 05/22/18 10:00 06/03/18 10:50 Catapres PO Not Given TID PEYMAN Furosemide 40 mg 06/04/18 22:00 06/08/18 09:48 Lasix IVP Not Given Q12 PEYMAN Heparin Sodium (Porcine) 5,000 units 06/02/18 22:00 06/08/18 15:17 Heparin SC 5,000 units Q8 PEYMAN Administration Protocol Hydralazine HCl 25 mg 05/31/18 06:15 06/02/18 05:37 Apresoline PO Not Given Q6H PEYMAN Hydromorphone HCl 0.5 mg 06/03/18 11:47 06/08/18 02:52 Dilaudid IVP 0.5 mg Q4H PRN Administration Pain, moderate (4-7) Meropenem/Sodium Chloride 500 mg in 50 mls @ 100 mls/hr 06/08/18 11:18 06/08/18 12:15 Merrem Iv 500 Mg/Ns 50 Ml IVPB 06/15/18 11:19 100 mls/hr Q12 PEYMAN Administration Protocol Vasopressin 20 units/ Sodium 101 mls @ 9.09 mls/hr 06/08/18 13:45 06/08/18 13:45 Chloride IV 9.09 mls/hr .[id number] PEYMAN Administration Protocol 0.03 U/MIN Sodium Bicarbonate 150 meq/ 1,150 mls @ 100 mls/hr 06/08/18 14:30 06/08/18 14:55 Dextrose IV 100 mls/hr .[id number] PEYMAN Administration NOREPINEPHRINE BIT/0.9 % NACL 4 mg in 250 mls @ 15 mls/hr 06/08/18 15:53 Levophed 4 Mg/ 250 Ml Ns Premixed IV .[id number] PRN TITRATE PER MD ORDER Protocol 4 MCG/MIN Insulin Human Lispro 0 units 05/21/18 22:00 06/08/18 12:05 Humalog High SC Not Given ACHS [facility] Protocol Insulin Lispro Protam/Lispro Human 10 units 05/25/18 16:30 06/08/18 07:52 Humalog Mix 75/25 SC Not Given ACBD [facility] Levalbuterol HCl 1.25 mg 05/26/18 14:00 06/08/18 13:57 Xopenex IH 1.25 mg [id number] PEYMAN Administration Metoprolol Tartrate 50 mg 05/28/18 13:30 05/30/18 01:30 Lopressor PO 50 mg Q12H PEYMAN Administration Ondansetron HCl 4 mg 06/01/18 10:58 Zofran Inj IVP Q6H PRN Nausea/Vomiting Oxychlorosene Sodium 2 gm 06/02/18 10:00 06/08/18 15:15 Clorpactin Wcs-90 TOP Not Given DAILY PEYMAN Pantoprazole Sodium 40 mg 06/08/18 13:15 06/08/18 14:35 Protonix Inj IV 40 mg Q12H PEYAMN Administration Simethicone 80 mg 05/30/18 04:02 05/31/18 09:48 Mylicon Chew Tab PO 80 mg PCHS PRN Administration GI distress - Patient Studies Lab Studies: Microbiology Studies 06/07/18 10:40 Blood Culture - Preliminary Blood-Venous NO GROWTH AFTER 24 HOURS 06/07/18 10:15 Blood Culture - Preliminary Blood-Venous NO GROWTH AFTER 24 HOURS Lab Studies 06/08/18 06/08/18 06/08/18 Range/Units 14:00 14:00 13:35 WBC 22.3 H (4.5-11.0) 10^3/uL RBC 2.75 L (3.5-6.1) 10^6/uL Hgb 7.4 L (12.0-16.0) g/dL Hct 24.8 L (36.0-48.0) % MCV 90.2 D (80.0-105.0) fl MCH 26.9 (25.0-35.0) pg MCHC 29.8 L (31.0-37.0) g/dl RDW 19.8 H (11.5-14.5) % Plt Count 187 (120.0-450.0) 10^3/uL MPV 9.7 (7.0-11.0) fl Neut % (Auto) 93.2 H (50.0-68.0) % Lymph % (Auto) 5.3 L (22.0-35.0) % Barton % (Auto) 1.5 (1.0-6.0) % Eos % (Auto) 0.0 L (1.5-5.0) % Baso % (Auto) 0.0 (0.0-3.0) % Lymph # (Auto) 1.2 (1.2-3.4) Barton # (Auto) 0.3 (0.1-0.6) Eos # (Auto) 0.0 (0.0-0.7) Baso # (Auto) 0.01 (0.0-2.0) K/mm3 Absolute Neuts (auto) 20.80 H (1.4-6.5) pCO2 28 L (35-45) mm/Hg pO2 78.0 L (80-100) mm/Hg HCO3 5.1 L* (21-28) mmol/L ABG pH 6.87 L* (7.35-7.45) ABG Total CO2 6.0 L (22-28) mmol.L ABG O2 Saturation 95.2 (95-98) % ABG O2 Content 8.5 L (15-23) ML/dl ABG Base Excess -26.1 L (-2.0-3.0) mmol/L ABG Hemoglobin 6.5 L (11.7-17.4) g/dL ABG Carboxyhemoglobin 2.9 H (0.5-1.5) % POC ABG HHb (Measured) 4.6 (0-5) % ABG Methemoglobin 1.7 (0.0-3.0) % ABG O2 Capacity 8.9 L (16-24) mL/dl Hgb O2 Saturation 90.9 L (95.0-98.0) % FiO2 100.0 % Crit Value Called To catherine Cerna Crit Value Called By katie Barbosa Blood Gas Notified Time 1349 Sodium 145 (132-148) mmol/L Potassium 5.9 H* (3.6-5.0) mmol/L Chloride 115 H (98-107) mmol/L Carbon Dioxide 11 L (21-33) mmol/L Anion Gap 24 H (10-20) BUN 88 H (7-21) mg/dL Creatinine 3.1 H (0.7-1.2) mg/dl Est GFR ( Amer) 18 Est GFR (Non-Af Amer) 15 POC Glucose (mg/dL) (65-110) mg/dL Random Glucose 178 H (70-110) mg/dL Calcium 7.9 L (8.4-10.5) mg/dL Total Bilirubin 5.8 H (0.2-1.3) mg/dL Direct Bilirubin 5.4 H (0.0-0.4) mg/dL AST 334 H D (14-36) U/L ALT 73 H (7-56) U/L Alkaline Phosphatase 78 (38-126) U/L Total Protein 5.2 L (5.8-8.3) g/dL Albumin 2.2 L (3.0-4.8) g/dL Globulin 3.0 gm/dL Albumin/Globulin Ratio 0.7 L (1.1-1.8) Blood Type Antibody Screen Crossmatch BBK History Checked 06/08/18 06/08/18 06/08/18 Range/Units 12:30 07:17 06:30 WBC (4.5-11.0) 10^3/uL RBC (3.5-6.1) 10^6/uL Hgb (12.0-16.0) g/dL Hct (36.0-48.0) % MCV (80.0-105.0) fl MCH (25.0-35.0) pg MCHC (31.0-37.0) g/dl RDW (11.5-14.5) % Plt Count (120.0-450.0) 10^3/uL MPV (7.0-11.0) fl Neut % (Auto) (50.0-68.0) % Lymph % (Auto) (22.0-35.0) % Barton % (Auto) (1.0-6.0) % Eos % (Auto) (1.5-5.0) % Baso % (Auto) (0.0-3.0) % Lymph # (Auto) (1.2-3.4) Barton # (Auto) (0.1-0.6) Eos # (Auto) (0.0-0.7) Baso # (Auto) (0.0-2.0) K/mm3 Absolute Neuts (auto) (1.4-6.5) pCO2 (35-45) mm/Hg pO2 (80-100) mm/Hg HCO3 (21-28) mmol/L ABG pH (7.35-7.45) ABG Total CO2 (22-28) mmol.L ABG O2 Saturation (95-98) % ABG O2 Content (15-23) ML/dl ABG Base Excess (-2.0-3.0) mmol/L ABG Hemoglobin (11.7-17.4) g/dL ABG Carboxyhemoglobin (0.5-1.5) % POC ABG HHb (Measured) (0-5) % ABG Methemoglobin (0.0-3.0) % ABG O2 Capacity (16-24) mL/dl Hgb O2 Saturation (95.0-98.0) % FiO2 % Crit Value Called To Crit Value Called By Blood Gas Notified Time Sodium 145 (132-148) mmol/L Potassium 5.5 H (3.6-5.0) mmol/L Chloride 117 H (98-107) mmol/L Carbon Dioxide 12 L (21-33) mmol/L Anion Gap 21 H (10-20) BUN 93 H (7-21) mg/dL Creatinine 2.8 H (0.7-1.2) mg/dl Est GFR ( Amer) 20 Est GFR (Non-Af Amer) 17 POC Glucose (mg/dL) 145 H (65-110) mg/dL Random Glucose 166 H (70-110) mg/dL Calcium 8.3 L (8.4-10.5) mg/dL Total Bilirubin 5.1 H (0.2-1.3) mg/dL Direct Bilirubin (0.0-0.4) mg/dL AST 72 H D (14-36) U/L ALT 17 (7-56) U/L Alkaline Phosphatase 83 (38-126) U/L Total Protein 5.8 (5.8-8.3) g/dL Albumin 2.5 L (3.0-4.8) g/dL Globulin 3.3 gm/dL Albumin/Globulin Ratio 0.8 L (1.1-1.8) Blood Type B POSITIVE Antibody Screen Negative Crossmatch See Detail BBK History Checked Patient has bt 06/08/18 06/07/18 06/07/18 Range/Units 06:30 21:32 16:29 WBC 22.9 H (4.5-11.0) 10^3/uL RBC 3.04 L (3.5-6.1) 10^6/uL Hgb 8.1 L (12.0-16.0) g/dL Hct 26.5 L (36.0-48.0) % MCV 87.2 D (80.0-105.0) fl MCH 26.6 (25.0-35.0) pg MCHC 30.6 L (31.0-37.0) g/dl RDW 19.6 H (11.5-14.5) % Plt Count 210 (120.0-450.0) 10^3/uL MPV 9.8 (7.0-11.0) fl Neut % (Auto) 94.4 H (50.0-68.0) % Lymph % (Auto) 3.2 L (22.0-35.0) % Barton % (Auto) 2.3 (1.0-6.0) % Eos % (Auto) 0.0 L (1.5-5.0) % Baso % (Auto) 0.1 (0.0-3.0) % Lymph # (Auto) 0.7 L (1.2-3.4) Barton # (Auto) 0.5 (0.1-0.6) Eos # (Auto) 0.0 (0.0-0.7) Baso # (Auto) 0.02 (0.0-2.0) K/mm3 Absolute Neuts (auto) 21.58 H (1.4-6.5) pCO2 (35-45) mm/Hg pO2 (80-100) mm/Hg HCO3 (21-28) mmol/L ABG pH (7.35-7.45) ABG Total CO2 (22-28) mmol.L ABG O2 Saturation (95-98) % ABG O2 Content (15-23) ML/dl ABG Base Excess (-2.0-3.0) mmol/L ABG Hemoglobin (11.7-17.4) g/dL ABG Carboxyhemoglobin (0.5-1.5) % POC ABG HHb (Measured) (0-5) % ABG Methemoglobin (0.0-3.0) % ABG O2 Capacity (16-24) mL/dl Hgb O2 Saturation (95.0-98.0) % FiO2 % Crit Value Called To Crit Value Called By Blood Gas Notified Time Sodium (132-148) mmol/L Potassium (3.6-5.0) mmol/L Chloride (98-107) mmol/L Carbon Dioxide (21-33) mmol/L Anion Gap (10-20) BUN (7-21) mg/dL Creatinine (0.7-1.2) mg/dl Est GFR ( Amer) Est GFR (Non-Af Amer) POC Glucose (mg/dL) 214 H 183 H (65-110) mg/dL Random Glucose (70-110) mg/dL Calcium (8.4-10.5) mg/dL Total Bilirubin (0.2-1.3) mg/dL Direct Bilirubin (0.0-0.4) mg/dL AST (14-36) U/L ALT (7-56) U/L Alkaline Phosphatase (38-126) U/L Total Protein (5.8-8.3) g/dL Albumin (3.0-4.8) g/dL Globulin gm/dL Albumin/Globulin Ratio (1.1-1.8) Blood Type Antibody Screen Crossmatch BBK History Checked 06/02/18 Range/Units 10:30 WBC (4.5-11.0) 10^3/uL RBC (3.5-6.1) 10^6/uL Hgb (12.0-16.0) g/dL Hct (36.0-48.0) % MCV (80.0-105.0) fl MCH (25.0-35.0) pg MCHC (31.0-37.0) g/dl RDW (11.5-14.5) % Plt Count (120.0-450.0) 10^3/uL MPV (7.0-11.0) fl Neut % (Auto) (50.0-68.0) % Lymph % (Auto) (22.0-35.0) % Barton % (Auto) (1.0-6.0) % Eos % (Auto) (1.5-5.0) % Baso % (Auto) (0.0-3.0) % Lymph # (Auto) (1.2-3.4) Barton # (Auto) (0.1-0.6) Eos # (Auto) (0.0-0.7) Baso # (Auto) (0.0-2.0) K/mm3 Absolute Neuts (auto) (1.4-6.5) pCO2 (35-45) mm/Hg pO2 (80-100) mm/Hg HCO3 (21-28) mmol/L ABG pH (7.35-7.45) ABG Total CO2 (22-28) mmol.L ABG O2 Saturation (95-98) % ABG O2 Content (15-23) ML/dl ABG Base Excess (-2.0-3.0) mmol/L ABG Hemoglobin (11.7-17.4) g/dL ABG Carboxyhemoglobin (0.5-1.5) % POC ABG HHb (Measured) (0-5) % ABG Methemoglobin (0.0-3.0) % ABG O2 Capacity (16-24) mL/dl Hgb O2 Saturation (95.0-98.0) % FiO2 % Crit Value Called To Crit Value Called By Blood Gas Notified Time Sodium (132-148) mmol/L Potassium (3.6-5.0) mmol/L Chloride (98-107) mmol/L Carbon Dioxide (21-33) mmol/L Anion Gap (10-20) BUN (7-21) mg/dL Creatinine (0.7-1.2) mg/dl Est GFR ( Amer) Est GFR (Non-Af Amer) POC Glucose (mg/dL) (65-110) mg/dL Random Glucose (70-110) mg/dL Calcium (8.4-10.5) mg/dL Total Bilirubin (0.2-1.3) mg/dL Direct Bilirubin (0.0-0.4) mg/dL AST (14-36) U/L ALT (7-56) U/L Alkaline Phosphatase (38-126) U/L Total Protein (5.8-8.3) g/dL Albumin (3.0-4.8) g/dL Globulin gm/dL Albumin/Globulin Ratio (1.1-1.8) Blood Type Antibody Screen Crossmatch See Detail BBK History Checked Laboratory Results - last 24 hr 06/02/18 06/07/18 06/07/18 10:30 16:29 21:32 WBC RBC Hgb Hct MCV MCH MCHC RDW Plt Count MPV Neut % (Auto) Lymph % (Auto) Barton % (Auto) Eos % (Auto) Baso % (Auto) Lymph # (Auto) Barton # (Auto) Eos # (Auto) Baso # (Auto) Absolute Neuts (auto) pCO2 pO2 HCO3 ABG pH ABG Total CO2 ABG O2 Saturation ABG O2 Content ABG Base Excess ABG Hemoglobin ABG Carboxyhemoglobin POC ABG HHb (Measured) ABG Methemoglobin ABG O2 Capacity Hgb O2 Saturation FiO2 Crit Value Called To Crit Value Called By Blood Gas Notified Time Sodium Potassium Chloride Carbon Dioxide Anion Gap BUN Creatinine Est GFR ( Amer) Est GFR (Non-Af Amer) POC Glucose (mg/dL) 183 H 214 H Random Glucose Calcium Total Bilirubin Direct Bilirubin AST ALT Alkaline Phosphatase Total Protein Albumin Globulin Albumin/Globulin Ratio Blood Type Antibody Screen Crossmatch See Detail BBK History Checked 06/08/18 06/08/18 06/08/18 06:30 06:30 07:17 WBC 22.9 H RBC 3.04 L Hgb 8.1 L Hct 26.5 L MCV 87.2 D MCH 26.6 MCHC 30.6 L RDW 19.6 H Plt Count 210 MPV 9.8 Neut % (Auto) 94.4 H Lymph % (Auto) 3.2 L Barton % (Auto) 2.3 Eos % (Auto) 0.0 L Baso % (Auto) 0.1 Lymph # (Auto) 0.7 L Barton # (Auto) 0.5 Eos # (Auto) 0.0 Baso # (Auto) 0.02 Absolute Neuts (auto) 21.58 H pCO2 pO2 HCO3 ABG pH ABG Total CO2 ABG O2 Saturation ABG O2 Content ABG Base Excess ABG Hemoglobin ABG Carboxyhemoglobin POC ABG HHb (Measured) ABG Methemoglobin ABG O2 Capacity Hgb O2 Saturation FiO2 Crit Value Called To Crit Value Called By Blood Gas Notified Time Sodium 145 Potassium 5.5 H Chloride 117 H Carbon Dioxide 12 L Anion Gap 21 H BUN 93 H Creatinine 2.8 H Est GFR ( Amer) 20 Est GFR (Non-Af Amer) 17 POC Glucose (mg/dL) 145 H Random Glucose 166 H Calcium 8.3 L Total Bilirubin 5.1 H Direct Bilirubin AST 72 H D ALT 17 Alkaline Phosphatase 83 Total Protein 5.8 Albumin 2.5 L Globulin 3.3 Albumin/Globulin Ratio 0.8 L Blood Type Antibody Screen Crossmatch BBK History Checked 06/08/18 06/08/18 06/08/18 12:30 13:35 14:00 WBC 22.3 H RBC 2.75 L Hgb 7.4 L Hct 24.8 L MCV 90.2 D MCH 26.9 MCHC 29.8 L RDW 19.8 H Plt Count 187 MPV 9.7 Neut % (Auto) 93.2 H Lymph % (Auto) 5.3 L Barton % (Auto) 1.5 Eos % (Auto) 0.0 L Baso % (Auto) 0.0 Lymph # (Auto) 1.2 Barton # (Auto) 0.3 Eos # (Auto) 0.0 Baso # (Auto) 0.01 Absolute Neuts (auto) 20.80 H pCO2 28 L pO2 78.0 L HCO3 5.1 L* ABG pH 6.87 L* ABG Total CO2 6.0 L ABG O2 Saturation 95.2 ABG O2 Content 8.5 L ABG Base Excess -26.1 L ABG Hemoglobin 6.5 L ABG Carboxyhemoglobin 2.9 H POC ABG HHb (Measured) 4.6 ABG Methemoglobin 1.7 ABG O2 Capacity 8.9 L Hgb O2 Saturation 90.9 L FiO2 100.0 Crit Value Called To catherine Cerna Crit Value Called By katie Barbosa Blood Gas Notified Time 1349 Sodium Potassium Chloride Carbon Dioxide Anion Gap BUN Creatinine Est GFR ( Amer) Est GFR (Non-Af Amer) POC Glucose (mg/dL) Random Glucose Calcium Total Bilirubin Direct Bilirubin AST ALT Alkaline Phosphatase Total Protein Albumin Globulin Albumin/Globulin Ratio Blood Type B POSITIVE Antibody Screen Negative Crossmatch See Detail BBK History Checked Patient has bt 06/08/18 14:00 WBC RBC Hgb Hct MCV MCH MCHC RDW Plt Count MPV Neut % (Auto) Lymph % (Auto) Barton % (Auto) Eos % (Auto) Baso % (Auto) Lymph # (Auto) Barton # (Auto) Eos # (Auto) Baso # (Auto) Absolute Neuts (auto) pCO2 pO2 HCO3 ABG pH ABG Total CO2 ABG O2 Saturation ABG O2 Content ABG Base Excess ABG Hemoglobin ABG Carboxyhemoglobin POC ABG HHb (Measured) ABG Methemoglobin ABG O2 Capacity Hgb O2 Saturation FiO2 Crit Value Called To Crit Value Called By Blood Gas Notified Time Sodium 145 Potassium 5.9 H* Chloride 115 H Carbon Dioxide 11 L Anion Gap 24 H BUN 88 H Creatinine 3.1 H Est GFR ( Amer) 18 Est GFR (Non-Af Amer) 15 POC Glucose (mg/dL) Random Glucose 178 H Calcium 7.9 L Total Bilirubin 5.8 H Direct Bilirubin 5.4 H AST 334 H D ALT 73 H Alkaline Phosphatase 78 Total Protein 5.2 L Albumin 2.2 L Globulin 3.0 Albumin/Globulin Ratio 0.7 L Blood Type Antibody Screen Crossmatch BBK History Checked Radiology Impressions: Radiology Impressions Chest X-Ray 06/08/18 05:00 IMPRESSION: Stable multifocal infiltrates primarily affecting right lung. Less pronounced changes identified left lung. Chest X-Ray 06/08/18 11:12 IMPRESSION: The endotracheal and nasogastric tubes are in satisfactory position. There is a right IJ line terminating at the junction of the SVC and right atrium. There is no pneumothorax. Extensive right lower lobe infiltrate and diffuse interstitial infiltrate in both lungs Addendum Addendum: 06/08/18 16:38 ICU Attending Addendum Patient seen and examined. Case reviewed on round with housestaff. 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 She has several critical issues which we are addressing including severe metabolic acidosis likely from renal failre and shock 2 amp bicarb given with bicarb drip started hyperK - given insulin and dex , will repeat K HB drop, concern for bleed d/c anticoag, anitplat surgery to be notified hypoxic resp failre now intubated on 100% fio2 and 10 of peep cont low vT ventilation will cont to eval with repeat CBC Chem and ABG q 4 hours cont abx, i suspect she aspirated given larg amount of black coffee ground emesis around her vocal cords when I intubated her GI notified - cont PPI I sat with her son this afternoon and explained to him the poor prognosis and multiorgan failure. I made it clear that she is dying and may pass at any point this afternoon/tonight He does not want her to suffer however holding off on changing code status he understands the severity of her condition. ANswered all questions. D/w Pal care who is consulted as well Rest of care as above in housestaff note Maribel Horowitz MD Pulmonary Critical Care Attending Critical Care Time: 65 mins
--- NOTE | 2018-06-08 14:16 | PCM.PROC ---
<John Naylor - Last Filed: 06/08/18 14:14> Procedures Attestation:: I certify that I have explained the specified Operation(s) or Procedure(s), risks, benefits and reasonable alternatives to the Patient and/or other person responsible. The opportunity was given to ask questions and all questions answered - Central Line Placement Left Internal Jugular Triple Lumen Catheter Aseptic technique was employed throughout the procedure: Hand Hygiene done prior to procedure, Full sterile barriers (mask, hair cover, sterile gown, sterile gloves), Full body sterile drape, Chloraprep Antiseptic: 30 second prep for IJ or SC sites CVP Time Out Performed: Yes Pt. Placed on Pulse Ox Monitor: Yes Local Anesthesia Used: Lidocaine 1% Amount of Anesthesia Used (mls): 5 Ultrasound Used for Placement: Yes Central Line Lumen Inserted: triple Central Line Length: 20 cm Post Procedure: Sutured in Place, Good Blood Return, All Ports Aspirated, Flushed, Capped, Sterile Dressing Applied Secured by: Suture Post procedure dressing: Chlorhexidine disc (Biopatch) Post Procedure X-Ray: Yes Patient Tolerated Procedure: No Complications Immediate Complications: None - Intubation Time Out Performed: Yes Sedative: None Laryngoscope: Glidescope ET Tube Size: 8.0 ET Tube Secured at Depth: 22 cm ET Tube Secured Locarion: Teeth ET Tube Placement Confirmation: Visualized Passing Through Cords, Breath Sounds Equal Bilaterally, No Breath Sounds Over Epigastrum, Confirmation w/Capnometry Patient Tolerated Procedure: No Complications Procedure Immediate Complications: None <Maribel Horowitz - Last Filed: 06/08/18 17:48> Addendum Addendum: 06/08/18 17:46 Central Venous Catheter (CVC, Central Line) Placement Resident Dr Naylor Supervising Attending Dr Zoila Horowitz Indication: Hemodynamic monitoring/Intravenous access A time-out was completed verifying correct patient, procedure, site, positioning, The patient was placed in a dependent position appropriate for central line placement based on the vein to be cannulated. The patients left neck was prepped and draped in sterile fashion. 1% Lidocaine was used to anesthetize the surrounding skin area. A triple lumen Cordis catheter was introduced into the the left internal jugular using the Seldinger technique and under ultrasound guidance. The catheter was threaded smoothly over the guide wire and appropriate blood return was obtained. Each lumen of the catheter was evacuated of air and flushed with sterile saline. The catheter was then sutured in place to the skin and a sterile dressing applied. Perfusion to the extremity distal to the point of catheter insertion was checked and found to be adequate. I was present for the entire procedure. Estimated Blood Loss: minimal The patient tolerated the procedure well and there were no complications. CXR shows good placement and no ptx Maribel Horowitz MD
[2018-06-08] MEDS: Sodium Bicarbonate 8.4% 150 MEQ in Dextrose 5% In Water 1,000 ML IV SCH (14:55)
[2018-06-08 15:00] LABS: BASO # 0.01 K/mm3 (0.0-2.0); HEMOGLOBIN 7.4 g/dL (12.0-16.0); LYMPH # 1.2 (1.2-3.4); LYMPH % 5.3 % (22.0-35.0); MEAN CORPUSCULAR HEMOGLOBIN 26.9 pg (25.0-35.0); MEAN CORPUSCULAR HGB CONC 29.8 g/dl (31.0-37.0); MEAN PLATELET VOLUME 9.7 fl (7.0-11.0); MONO # 0.3 (0.1-0.6); MONO % 1.5 % (1.0-6.0); RBC 2.75 10^6/uL (3.5-6.1); RED CELL DISTRIBUTION WIDTH 19.8 % (11.5-14.5); WHITE BLOOD COUNT 22.3 10^3/uL (4.5-11.0)
[2018-06-08 15:05] LABS: MEAN CELL VOLUME 90.2 fl (80.0-105.0)
[2018-06-08] MEDS: Oxychlorosene Topical 2 gm Packet TOP SCH (15:15)
--- NOTE | 2018-06-08 15:33 | PN ---
DATE: 06/08/2018 SUBJECTIVE: The patient is 67-year-old. The patient was very tachypneic and tachycardic with altered mental status, so she was intubated this morning because of her tachypnea and hypoxia. Seen and examined on vent. PHYSICAL EXAMINATION: VITAL SIGNS: The patient is afebrile. Pulse 71, respiration 20 and blood pressure 88/33. LUNGS: Bilateral soft crackle in upper lung region. HEART: S1 and S2, audible. Irregular tachycardic. ABDOMEN: Had dressing on, wounds seems to be clear. NEUROLOGICAL: She is sedated. LABORATORY DATA: WBC 22.9, hemoglobin 8.1, hematocrit 26.5 and platelet 210. Chemistry; sodium 145, potassium 5.5, chloride 117, CO2 of 12, BUN 93, creatinine 2.8 and blood sugar 145. X-ray of the chest shows venous congestion and multifocal infiltrate, primarily right lung. ASSESSMENT: 1. Respiratory failure on vent. 2. Sepsis. 3. Bilateral infiltrate. 4. Several peripheral vascular disease. 5. Left second toe gangrene. 6. Acute on chronic renal failure. 7. Insulin-dependant diabetes. PLAN: Currently, the patient is on Mucomyst. She is on hydralazine. She is on aspirin and we will hold Klonopin. Continue nebulizer treatment. She is on deep venous thrombosis prophylaxis. I will monitor her blood sugar. She is currently on meropenem. Amlodipine is on hold. Continue her on Zyvox. We will followup her electrolyte and CBC in a.m. Spice [employer] spoke to the patient's son and he want everything done. Jason Laws MD
[2018-06-08 15:36] LABS: ALB/GLOB RATIO 0.7 (1.1-1.8); ALBUMIN 2.2 g/dL (3.0-4.8); BILIRUBIN,DIRECT 5.4 mg/dL (0.0-0.4); CALCIUM 7.9 mg/dL (8.4-10.5)
--- NOTE | 2018-06-08 16:02 | CP.PCM.CON ---
History of Present Illness - History of Present Illness History of Present Illness: Palliative consult requested by Dr Allen Laws Reason: Goals of care 67 year old female with history of COPD, DM who presented to the hospital on 05/27 with gangrenous left toe. Angioplasty was done to left popliteal artery. S/p procedure the patient developed respiratory distress, hypertensive crisis and pulmonary edema. On 06/01 she developed abdominal pain,vomiting. She was found to have strangulated ventral hernia with ischemic bowel and was taken to surgery. She is s/p ventral hernia repair, resection of ischemic small bowel and appendectomy. This morning she developed acute respiratory distress and hypotension. She intubated vasopressors X2 PHx: DM CAD,PVD, A Fib,CVA. PSHx: Social History: Former smoker, no alcohol or drug use. Lived independently. Family History: Non contributory Advance Care Planning: The patient does not have an Advanced Directive. Review of Systems: intubated, unable to obtain. Past Patient History - Infectious Disease Hx of Infectious Diseases: None - Tetanus Immunizations Tetanus Immunization: Unknown - Past Social History Smoking Status: Former Smoker - CARDIAC Hx Cardiac Disorders: Yes Hx Hypertension: Yes - PULMONARY Hx Respiratory Disorders: No - NEUROLOGICAL HX Cerebrovascular Accident: Yes - HEENT Hx HEENT Problems: No - RENAL Hx Chronic Kidney Disease: No - ENDOCRINE/METABOLIC Hx Diabetes Mellitus Type 2: Yes - HEMATOLOGICAL/ONCOLOGICAL Hx Blood Transfusions: Yes Hx Blood Transfusion Reaction: No - INTEGUMENTARY Hx Dermatological Problems: No - MUSCULOSKELETAL/RHEUMATOLOGICAL Hx Arthritis: Yes - GASTROINTESTINAL Hx Gastrointestinal Disorders: Yes Other/Comment: Increased Gas problems in abd since Stroke last year - GENITOURINARY/GYNECOLOGICAL Hx Genitourinary Disorders: No - PSYCHIATRIC Hx Psychophysiologic Disorder: No Hx Substance Use: No - SURGICAL HISTORY Hx Surgeries: Yes - ANESTHESIA Hx Anesthesia Reactions: No Hx Malignant Hyperthermia: No Meds Allergies/Adverse Reactions: Allergies Allergy/AdvReac Type Severity Reaction Status Date / Time codeine Allergy SHORTNESS Verified 07/18/17 11:45 OF BREATH Penicillins Allergy ANAPHYLAXIS Verified 07/18/17 11:45 clopidogrel AdvReac SHORTNESS Verified 07/18/17 11:45 OF BREATH peaches Allergy Severe REDNESS Uncoded 07/18/17 11:45 nectarines Allergy Mild SHORTNESS Uncoded 07/18/17 11:45 OF BREATH - Medications Medications: Current Medications Acetaminophen (Tylenol 325mg Tab) 650 mg PO Q6H PRN PRN Reason: Fever >100.4 F Last Admin: 05/30/18 01:30 Dose: 650 mg Acetylcysteine (Acetylcysteine 20%) 4 ml IH BIDRESP [facility] Last Admin: 06/08/18 08:13 Dose: 4 ml Albuterol/Ipratropium (Duoneb 3 Mg/0.5 Mg (3 Ml) Ud) 3 ml IH Q2H PRN PRN Reason: Shortness of Breath Amlodipine Besylate (Norvasc) 10 mg PO DAILY [facility] Last Admin: 06/02/18 09:34 Dose: Not Given Aspirin (Aspirin Chewable) 81 mg PO DAILY [facility] Last Admin: 06/08/18 09:45 Dose: 81 mg Atorvastatin Calcium (Lipitor) 40 mg PO QOTHERDAY [facility] Last Admin: 06/08/18 09:45 Dose: 40 mg Clonidine HCl (Catapres) 0.3 mg PO TID [facility] Last Admin: 06/03/18 10:50 Dose: Not Given Furosemide (Lasix) 40 mg IVP Q12 [facility] Last Admin: 06/08/18 09:48 Dose: Not Given Heparin Sodium (Porcine) (Heparin) 5,000 units SC Q8 [facility]; Protocol Last Admin: 06/08/18 15:17 Dose: 5,000 units Hydralazine HCl (Apresoline) 25 mg PO Q6H [facility] Last Admin: 06/02/18 05:37 Dose: Not Given Hydromorphone HCl (Dilaudid) 0.5 mg IVP Q4H PRN PRN Reason: Pain, moderate (4-7) Last Admin: 06/08/18 02:52 Dose: 0.5 mg Meropenem/Sodium Chloride (Merrem Iv 500 Mg/Ns 50 Ml) 500 mg in 50 mls @ 100 mls/hr IVPB Q12 [facility]; Protocol Stop: 06/15/18 11:19 Last Admin: 06/08/18 12:15 Dose: 100 mls/hr Vasopressin 20 units/ Sodium (Chloride) 101 mls @ 9.09 mls/hr IV .[id number] [facility]; Protocol Last Admin: 06/08/18 13:45 Dose: 9.09 mls/hr Sodium Bicarbonate 150 meq/ (Dextrose) 1,150 mls @ 100 mls/hr IV .[id number] [facility] Last Admin: 06/08/18 14:55 Dose: 100 mls/hr NOREPINEPHRINE BIT/0.9 % NACL (Levophed 4 Mg/ 250 Ml Ns Premixed) 4 mg in 250 mls @ 15 mls/hr IV .[id number] PRN; Protocol PRN Reason: TITRATE PER MD ORDER Insulin Human Lispro (Humalog High) 0 units SC ACHS [facility]; Protocol Last Admin: 06/08/18 12:05 Dose: Not Given Insulin Lispro Protam/Lispro Human (Humalog Mix 75/25) 10 units SC ACBD [facility] Last Admin: 06/08/18 07:52 Dose: Not Given Levalbuterol HCl (Xopenex) 1.25 mg IH [id number] [facility] Last Admin: 06/08/18 13:57 Dose: 1.25 mg Metoprolol Tartrate (Lopressor) 50 mg PO Q12H [facility] Last Admin: 05/30/18 01:30 Dose: 50 mg Ondansetron HCl (Zofran Inj) 4 mg IVP Q6H PRN PRN Reason: Nausea/Vomiting Oxychlorosene Sodium (Clorpactin Wcs-90) 2 gm TOP DAILY [facility] Last Admin: 06/08/18 15:15 Dose: Not Given Pantoprazole Sodium (Protonix Inj) 40 mg IV Q12H [facility] Last Admin: 06/08/18 14:35 Dose: 40 mg Simethicone (Mylicon Chew Tab) 80 mg PO PCHS PRN PRN Reason: GI distress Last Admin: 05/31/18 09:48 Dose: 80 mg Sodium Polystyrene Sulfonate (Kayexalate) 30 gm PO ONCE ONE Stop: 06/08/18 15:55 Physical Exam - Constitutional Appears: Chronically Ill - Head Exam Head Exam: NORMAL INSPECTION - Eye Exam Eye Exam: Normal appearance, PERRL - ENT Exam ENT Exam: Mucous Membranes Moist - Respiratory Exam Additional comments: intubated - Cardiovascular Exam Cardiovascular Exam: REGULAR RHYTHM, +S1, +S2 - GI/Abdominal Exam Additional comments: abdominal dm intact, wound dry MISTY in place - Extremities Exam Additional comments: left foot bandaged - Skin Skin Exam: Dry, Pallor Additional comments: anasarca Results - Vital Signs Recent Vital Signs: Last Vital Signs Temp 98.6 F 06/08/18 04:00 Pulse 71 02/11/19 10:46 Resp 20 06/08/18 11:20 BP 81/29 L 06/08/18 13:45 Pulse Ox 87 L 06/08/18 11:20 - Labs Result Diagrams: 06/08/18 14:00 06/08/18 14:00 Labs: Laboratory Results - last 24 hr 06/02/18 06/07/18 06/07/18 10:30 07:23 11:43 WBC RBC Hgb Hct MCV MCH MCHC RDW Plt Count MPV Neut % (Auto) Lymph % (Auto) Edwards % (Auto) Eos % (Auto) Baso % (Auto) Lymph # (Auto) Edwards # (Auto) Eos # (Auto) Baso # (Auto) Absolute Neuts (auto) pCO2 pO2 HCO3 ABG pH ABG Total CO2 ABG O2 Saturation ABG O2 Content ABG Base Excess ABG Hemoglobin ABG Carboxyhemoglobin POC ABG HHb (Measured) ABG Methemoglobin ABG O2 Capacity Hgb O2 Saturation FiO2 Crit Value Called To Crit Value Called By Blood Gas Notified Time Sodium Potassium Chloride Carbon Dioxide Anion Gap BUN Creatinine Est GFR ( Amer) Est GFR (Non-Af Amer) POC Glucose (mg/dL) 188 H 177 H Random Glucose Calcium Total Bilirubin Direct Bilirubin AST ALT Alkaline Phosphatase Total Protein Albumin Globulin Albumin/Globulin Ratio Blood Type Antibody Screen Crossmatch See Detail BBK History Checked 06/07/18 06/07/18 06/08/18 16:29 21:32 06:30 WBC 22.9 H RBC 3.04 L Hgb 8.1 L Hct 26.5 L MCV 87.2 D MCH 26.6 MCHC 30.6 L RDW 19.6 H Plt Count 210 MPV 9.8 Neut % (Auto) 94.4 H Lymph % (Auto) 3.2 L Edwards % (Auto) 2.3 Eos % (Auto) 0.0 L Baso % (Auto) 0.1 Lymph # (Auto) 0.7 L Edwards # (Auto) 0.5 Eos # (Auto) 0.0 Baso # (Auto) 0.02 Absolute Neuts (auto) 21.58 H pCO2 pO2 HCO3 ABG pH ABG Total CO2 ABG O2 Saturation ABG O2 Content ABG Base Excess ABG Hemoglobin ABG Carboxyhemoglobin POC ABG HHb (Measured) ABG Methemoglobin ABG O2 Capacity Hgb O2 Saturation FiO2 Crit Value Called To Crit Value Called By Blood Gas Notified Time Sodium Potassium Chloride Carbon Dioxide Anion Gap BUN Creatinine Est GFR ( Amer) Est GFR (Non-Af Amer) POC Glucose (mg/dL) 183 H 214 H Random Glucose Calcium Total Bilirubin Direct Bilirubin AST ALT Alkaline Phosphatase Total Protein Albumin Globulin Albumin/Globulin Ratio Blood Type Antibody Screen Crossmatch BBK History Checked 06/08/18 06/08/18 06/08/18 06:30 07:17 12:30 WBC RBC Hgb Hct MCV MCH MCHC RDW Plt Count MPV Neut % (Auto) Lymph % (Auto) Edwards % (Auto) Eos % (Auto) Baso % (Auto) Lymph # (Auto) Edwards # (Auto) Eos # (Auto) Baso # (Auto) Absolute Neuts (auto) pCO2 pO2 HCO3 ABG pH ABG Total CO2 ABG O2 Saturation ABG O2 Content ABG Base Excess ABG Hemoglobin ABG Carboxyhemoglobin POC ABG HHb (Measured) ABG Methemoglobin ABG O2 Capacity Hgb O2 Saturation FiO2 Crit Value Called To Crit Value Called By Blood Gas Notified Time Sodium 145 Potassium 5.5 H Chloride 117 H Carbon Dioxide 12 L Anion Gap 21 H BUN 93 H Creatinine 2.8 H Est GFR ( Amer) 20 Est GFR (Non-Af Amer) 17 POC Glucose (mg/dL) 145 H Random Glucose 166 H Calcium 8.3 L Total Bilirubin 5.1 H Direct Bilirubin AST 72 H D ALT 17 Alkaline Phosphatase 83 Total Protein 5.8 Albumin 2.5 L Globulin 3.3 Albumin/Globulin Ratio 0.8 L Blood Type B POSITIVE Antibody Screen Negative Crossmatch See Detail BBK History Checked Patient has bt 06/08/18 06/08/18 06/08/18 13:35 14:00 14:00 WBC 22.3 H RBC 2.75 L Hgb 7.4 L Hct 24.8 L MCV 90.2 D MCH 26.9 MCHC 29.8 L RDW 19.8 H Plt Count 187 MPV 9.7 Neut % (Auto) 93.2 H Lymph % (Auto) 5.3 L Edwards % (Auto) 1.5 Eos % (Auto) 0.0 L Baso % (Auto) 0.0 Lymph # (Auto) 1.2 Edwards # (Auto) 0.3 Eos # (Auto) 0.0 Baso # (Auto) 0.01 Absolute Neuts (auto) 20.80 H pCO2 28 L pO2 78.0 L HCO3 5.1 L* ABG pH 6.87 L* ABG Total CO2 6.0 L ABG O2 Saturation 95.2 ABG O2 Content 8.5 L ABG Base Excess -26.1 L ABG Hemoglobin 6.5 L ABG Carboxyhemoglobin 2.9 H POC ABG HHb (Measured) 4.6 ABG Methemoglobin 1.7 ABG O2 Capacity 8.9 L Hgb O2 Saturation 90.9 L FiO2 100.0 Crit Value Called To catherine Cerna Crit Value Called By katie Barbosa Blood Gas Notified Time 1349 Sodium 145 Potassium 5.9 H* Chloride 115 H Carbon Dioxide 11 L Anion Gap 24 H BUN 88 H Creatinine 3.1 H Est GFR ( Amer) 18 Est GFR (Non-Af Amer) 15 POC Glucose (mg/dL) Random Glucose 178 H Calcium 7.9 L Total Bilirubin 5.8 H Direct Bilirubin 5.4 H AST 334 H D ALT 73 H Alkaline Phosphatase 78 Total Protein 5.2 L Albumin 2.2 L Globulin 3.0 Albumin/Globulin Ratio 0.7 L Blood Type Antibody Screen Crossmatch BBK History Checked Assessment & Plan - Assessment and Plan (Free Text) Assessment: 67 year old female with history of COPD, CAD, PVD, DM and CKD who is admitted with respiratory failure,hypotension, sepsis, gangrenous left toe incarcerated hernia s/p bowel resection and hernia repair,anemia Patient's son Anselmo at bedside. He was updated of her condition MICU resident physician in radiology. Son understands that his mother is gravely ill. He verbalized that she has "been though a lot" in the past few weeks. He is not ready to stop aggressive medical care at this time. Psychosocial support provided.Spiritual support declined. Time spent with son in goals of care discussion, 20 minutes Plan: Goals of care Intubated, nebulizers,maintain 02 sat > 95% Continue Levophed, Vasopressin, Sodium Bicarb. Continue Merrem
--- NOTE | 2018-06-08 17:46 | PCM.PROC ---
Addendum Addendum: 06/08/18 17:43 Endotracheal Intubation Indication: Respiratory Distress A time-out was completed verifying correct patient, procedure, site, positioning. The patient was placed in a flat position. The patient was easily ventilated using an ambu bag and oxygenation brought up to 95% The GLIDESCOPE BLADE was used and inserted into the oropharynx at which time there was a Grade 1 view of the vocal cords. Coffe ground material coating the entire upper pharynx A 8.0-japanese endotracheal tube was inserted and visualized going through the vocal cords. The stylette was removed. Colorimetric change was visualized on the CO2 meter. Breath sounds were heard in both lung espinosa equally. The endotracheal tube was placed at 22 cm, measured at the teeth. A chest x-ray verified endotrachealtube placement. No sedation or paralytics were required Zoila Horowitz MD
--- NOTE | 2018-06-08 19:28 | PN ---
DATE: 06/08/2018 SUBJECTIVE: This 67-year-old diabetic female seen and evaluated at bedside in the ICU for left second digit gangrene and impending ischemia of her left forefoot. The patient is intubated at this time. The patient's overall condition is deteriorating. PHYSICAL EXAMINATION: VITAL SIGNS: Blood pressure of 81/29, respiratory rate of 20, O2 saturation of 87. EXTREMITIES: Nonpalpable pedal pulses noted bilaterally. Capillary filling time is delayed x9 and absent on the left second digit. The entire left second digit presents with gangrene and is now desiccating. There is an open wound at the base of the left second metatarsophalangeal joint that probes to bone. There is noted to be gangrenous tissue at an ulceration site. However, there is no active purulence draining from the wound, but there is malodor from the gangrenous toe. There are noted to be ischemic changes occurring on the second and third digit. LABORATORY DATA: Laboratory findings reveal white count of 22.3 down from 22.9 yesterday. Hemoglobin of 7.4, hematocrit of 24.8, platelet count of 187. Most recent microbiology report reveals corynebacterium species growing on the left foot ulceration. ASSESSMENT: A 67-year-old female with left second digit gangrene and impending ischemia of the entire left forefoot. PLAN The patient was seen and evaluated. The wound abscess formation was flushed with Clorpactin solution and a Betadine-soaked dry sterile dressing was applied. We will continue with local wound care at this time with no immediate plans for podiatric surgical intervention. Gil Kim DPM
[2018-06-08] MEDS: NOREPINEPHRINE BIT/0.9 % NACL 4 MG/250 ML BAG IV PRN (20:49)
[2018-06-08 21:47] LABS: HEMOGLOBIN 7.4 g/dL (12.0-16.0); MEAN CELL VOLUME 90.6 fl (80.0-105.0); MEAN CORPUSCULAR HEMOGLOBIN 26.7 pg (25.0-35.0); MEAN CORPUSCULAR HGB CONC 29.5 g/dl (31.0-37.0); MEAN PLATELET VOLUME 9.7 fl (7.0-11.0); RBC 2.77 10^6/uL (3.5-6.1); RED CELL DISTRIBUTION WIDTH 20.1 % (11.5-14.5)
[2018-06-08 21:50] LABS: WHITE BLOOD COUNT 29.7 10^3/uL (4.5-11.0)
[2018-06-08 21:54] LABS: PARTIAL THROMBOPLASTIN TIME 54.5 Seconds (26.9-38.3); PROTHROMBIN TIME 39.6 SECONDS (9.4-12.5)
[2018-06-08 21:59] LABS: INR 3.57
[2018-06-08 23:07] LABS: CALCIUM 7.6 mg/dL (8.4-10.5)
--- NOTE | 2018-06-09 01:14 | PN ---
DATE: 06/08/2018 SUBJECTIVE: The patient is lying in bed in the ICU. She is currently on BiPAP mask. She is minimally responsive and appears to have near agonal breathing. She is also hypotensive. CURRENT MEDICATIONS: Include Mucomyst, aspirin, DuoNeb inhaler, subcutaneous heparin, insulin coverage, Lipitor, meropenem, Protonix, Xopenex. PHYSICAL EXAMINATION: GENERAL: She is a acutely ill appearing middle-aged woman. VITAL SIGNS: Blood pressure is 76/40 with a pulse of 60 in atrial fibrillation, respirations 16, she is afebrile. HEENT: BiPAP mask in place. CHEST: Bilateral scattered rhonchi. HEART: PMI displaced laterally with systolic murmur at the left sternal border. ABDOMEN: Soft, however, bowel sounds remain absent. EXTREMITIES: 2+ leg edema. Left foot remains dressed. DIAGNOSTIC DATA: White count 22.9, hemoglobin 8.1, hematocrit 24 with a platelet count 210,000. Potassium 5,5, BUN and creatinine 93 and 2.8 with a bicarbonate of 12. Chest x-ray reveals enlarged cardiac silhouette with bilateral pulmonary congestion, extensive opacification noted of the right lower lung field. IMPRESSION: 1. Probable septic shock. 2. Inappropriate bradycardia given clinical scenario. 3. Status post recent bowel resection for incarcerated hernia. 4. Volume overload. 5. Probable severe metabolic acidosis. 6. Severe anemia. 7. Chronic atrial fibrillation. 8. Coronary artery disease status post prior bypass surgery. 9. Mild left ventricular dysfunction. RECOMMENDATIONS: 1. Urgent attention needed with placement of central line and initiation of pressor support. Arterial blood gas should be obtained. Acidosis corrected as quickly as possible. 2. Transfusion to hemoglobin greater than 8 would be advisable as well. Avoid excessive volume infusion is recommended. Nutritional support given her persistent ileus is advised as well. Overall prognosis appears extremely guarded. Her son, Anselmo is contacted via phone to update him on her condition. All of the above is discussed with the ski patrol officer and staff in the ICU. We will continue to follow any further recommendations as appropriate. Mauro Dowell MD MTDD
[2018-06-09] MEDS: Levalbuterol 1.25 MG/3 ML Inhal Soln UD IH SCH ×4 (01:37→20:15)
[2018-06-09] MEDS: NOREPINEPHRINE BIT/0.9 % NACL 4 MG/250 ML BAG IV PRN ×5 (02:03→17:01)
[2018-06-09] MEDS: Sodium Bicarbonate 8.4% 150 MEQ in Dextrose 5% In Water 1,000 ML IV SCH ×2 (02:03→16:33)
[2018-06-09 05:18] LABS: ARTERIAL BLOOD GAS HCO3 9.7 mmol/L (21-28); ARTERIAL BLOOD GAS HEMOGLOBIN 7.3 g/dL (11.7-17.4); ARTERIAL BLOOD GAS O2 CAPACITY 9.9 mL/dl (16-24); ARTERIAL BLOOD GAS O2 CONTENT 8.7 ML/dl (15-23); ARTERIAL BLOOD GAS O2 SAT 88.3 % (95-98); ARTERIAL BLOOD GAS PCO2 45 mm/Hg (35-45); ARTERIAL BLOOD GAS PH 6.94 (7.35-7.45); ARTERIAL BLOOD GAS TCO2 11.1 mmol.L (22-28)
[2018-06-09] MEDS ORDERED: Sodium Bicarbonate (8.4%) 50 Meq Syringe IVP ONE ×6 (05:43→16:25)
--- NOTE | 2018-06-09 05:44 | CP.PCM.PCO ---
Physician Communication Note - Physician Communication Note Physician Communication Note: first page from ICU 5:30AM discussed temp pH with medicine team
[2018-06-09 06:23] LABS: MEAN CELL VOLUME 89.1 fl (80.0-105.0); MEAN CORPUSCULAR HEMOGLOBIN 27.3 pg (25.0-35.0); MEAN CORPUSCULAR HGB CONC 30.7 g/dl (31.0-37.0); MEAN PLATELET VOLUME 9.6 fl (7.0-11.0); PLATELET COUNT 110 10^3/uL (120.0-450.0); RBC 2.56 10^6/uL (3.5-6.1); RED CELL DISTRIBUTION WIDTH 19.9 % (11.5-14.5)
[2018-06-09 06:35] LABS: PARTIAL THROMBOPLASTIN TIME 53.3 Seconds (26.9-38.3)
[2018-06-09 06:53] LABS: PROTHROMBIN TIME 48.1 SECONDS (9.4-12.5)
[2018-06-09 06:54] LABS: INR 4.26; WHITE BLOOD COUNT 28.1 10^3/uL (4.5-11.0)
[2018-06-09 06:58] LABS: ALB/GLOB RATIO 0.8 (1.1-1.8); ALBUMIN 2.1 g/dL (3.0-4.8); CALCIUM 7.2 mg/dL (8.4-10.5)
[2018-06-09] MEDS: Acetylcysteine 20% Inhal Soln (4ml) IH SCH ×2 (07:16→20:15)
--- NOTE | 2018-06-09 08:00 | CP.PCM.PN ---
Subjective - Date & Time of Evaluation Date of Evaluation: 06/09/18 Time of Evaluation: 07:05 - Subjective Subjective: Surgery Progress note. Dr. Morrell Pt seen and examined at bedside. Unable to obtain a complete ROS due to intubation and sedation. Patient becoming increasingly acidotic. No UOP reported by nursing staff. No reported BMs. Patient was intubated yesterday evening. Currently on 2 vasopressors. Worsening renal function and may require HD. Objective - Vital Signs/Intake and Output Vital Signs (last 24 hours): Temp Pulse Resp BP Pulse Ox 98.6 F 67 20 106/38 L 86 L 06/09/18 00:01 06/09/18 02:00 06/08/18 11:20 06/09/18 06:50 06/08/18 18:46 Intake and Output: 06/09/18 06/09/18 06:59 18:59 Intake Total 500 Balance 500 - Medications Medications: Current Medications Acetaminophen (Tylenol 325mg Tab) 650 mg PO Q6H PRN PRN Reason: Fever >100.4 F Last Admin: 05/30/18 01:30 Dose: 650 mg Acetylcysteine (Acetylcysteine 20%) 4 ml IH BIDRESP [facility] Last Admin: 06/09/18 07:16 Dose: 4 ml Albuterol/Ipratropium (Duoneb 3 Mg/0.5 Mg (3 Ml) Ud) 3 ml IH Q2H PRN PRN Reason: Shortness of Breath Last Admin: 06/08/18 21:30 Dose: 3 ml Amlodipine Besylate (Norvasc) 10 mg PO DAILY [facility] Last Admin: 06/02/18 09:34 Dose: Not Given Aspirin (Aspirin Chewable) 81 mg PO DAILY [facility] Last Admin: 06/08/18 09:45 Dose: 81 mg Atorvastatin Calcium (Lipitor) 40 mg PO QOTHERDAY [facility] Last Admin: 06/08/18 09:45 Dose: 40 mg Clonidine HCl (Catapres) 0.3 mg PO TID [facility] Last Admin: 06/03/18 10:50 Dose: Not Given Furosemide (Lasix) 40 mg IVP Q12 [facility] Last Admin: 06/08/18 09:48 Dose: Not Given Hydralazine HCl (Apresoline) 25 mg PO Q6H [facility] Last Admin: 06/02/18 05:37 Dose: Not Given Hydromorphone HCl (Dilaudid) 0.5 mg IVP Q4H PRN PRN Reason: Pain, moderate (4-7) Last Admin: 06/08/18 02:52 Dose: 0.5 mg Meropenem/Sodium Chloride (Merrem Iv 500 Mg/Ns 50 Ml) 500 mg in 50 mls @ 100 mls/hr IVPB Q12 [facility]; Protocol Stop: 06/15/18 11:19 Last Admin: 06/08/18 21:07 Dose: 100 mls/hr Vasopressin 20 units/ Sodium (Chloride) 101 mls @ 9.09 mls/hr IV .Q11H7M [facility]; Protocol Last Admin: 06/09/18 02:01 Dose: 9.09 mls/hr Sodium Bicarbonate 150 meq/ (Dextrose) 1,150 mls @ 100 mls/hr IV .[id number] [facility] Last Admin: 06/09/18 02:03 Dose: 100 mls/hr NOREPINEPHRINE BIT/0.9 % NACL (Levophed 4 Mg/ 250 Ml Ns Premixed) 4 mg in 250 mls @ 15 mls/hr IV .[id number] PRN; Protocol PRN Reason: TITRATE PER MD ORDER Last Admin: 06/09/18 05:24 Dose: 20 mcg/min, 75 mls/hr Insulin Human Lispro (Humalog High) 0 units SC ACHS [facility]; Protocol Last Admin: 06/08/18 21:38 Dose: 2 units Insulin Lispro Protam/Lispro Human (Humalog Mix 75/25) 10 units SC ACBD [facility] Last Admin: 06/08/18 18:22 Dose: Not Given Levalbuterol HCl (Xopenex) 1.25 mg IH [id number] [facility] Last Admin: 06/09/18 07:16 Dose: 1.25 mg Metoprolol Tartrate (Lopressor) 50 mg PO Q12H [facility] Last Admin: 05/30/18 01:30 Dose: 50 mg Ondansetron HCl (Zofran Inj) 4 mg IVP Q6H PRN PRN Reason: Nausea/Vomiting Oxychlorosene Sodium (Clorpactin Wcs-90) 2 gm TOP DAILY [facility] Last Admin: 06/08/18 15:15 Dose: Not Given Pantoprazole Sodium (Protonix Inj) 40 mg IV Q12H [facility] Last Admin: 06/09/18 02:05 Dose: 40 mg Simethicone (Mylicon Chew Tab) 80 mg PO PCHS PRN PRN Reason: GI distress Last Admin: 05/31/18 09:48 Dose: 80 mg - Labs Labs: 06/09/18 05:30 06/09/18 05:30 PT 48.1 SECONDS (9.4-12.5) H 06/09/18 05:30 INR 4.26 H* 06/09/18 05:30 APTT 53.3 Seconds (26.9-38.3) H 06/09/18 05:30 - Constitutional Appears: Older Than Stated Age, Chronically Ill - Head Exam Head Exam: ATRAUMATIC, NORMAL INSPECTION, NORMOCEPHALIC - Eye Exam Eye Exam: absent: Scleral icterus - ENT Exam ENT Exam: Mucous Membranes Dry Additional comments: intubated - Respiratory Exam Additional comments: Intubated and sedated. On 100% FiO2 via ETT - Cardiovascular Exam Cardiovascular Exam: absent: JVD - GI/Abdominal Exam GI & Abdominal Exam: Soft. absent: Distended, Firm, Guarding Additional comments: Alejandro drains in place with 165cc output in left and 100cc output from right in past 24 hours. outputs slightly more sanguinous today. - Neurological Exam Additional comments: Intubated and sedated Assessment and Plan - Assessment and Plan (Free Text) Assessment: 67yo F s/p strangulated ventral hernia repair w small bowel resection, jejunocecal anastamosis and primary closure of hernia. POD 7. - Worsening renal function - Increasing acidosis - Hypothermia - Worsening coagulopathy Plan: - Transfuse as needed - Correct coagulopathy - Vent management and weaning as per ICU team - Continue abx - May require HD due worsening renal function Further recs as per Dr. Petros Campoverde PGY2 surgery
[2018-06-09 08:03] LABS: BAND 1 % (0-2); CORRECTED WBC 26.3 K/mm3 (4.5-11.0); LYMPHOCYTE 3 % (22.0-35.0); METAMYELOCYTE 1 %; NEUTROPHIL 95 % (50.0-70.0); NUCLEATED RED BLOOD CELL 7 %
[2018-06-09 08:04] LABS: ACANTHROCYTES 1+; ANISOCYTOSIS 1+; BURR CELLS 1+; PLATELET ESTIMATE LOW (NORMAL); POIKILOCYTOSIS 1+
[2018-06-09 08:05] LABS: SCHISTOCYTES SLIGHT
[2018-06-09] MEDS: Insulin Lispro (humaLOG) MIX 75/25(10 ml) SC SCH (08:12)
[2018-06-09] MEDS: Insulin Lispro (HUMAlog) HIGH Coverage SC SCH ×3 (08:12→17:30)
--- NOTE | 2018-06-09 08:45 | RAD ---
Date of service: 06/09/2018 HISTORY: intubated COMPARISON: 06/08/2018 FINDINGS: LUNGS: Dense alveolar infiltrate in both upper lobes increased from prior exam. The right lower lobe infiltrate seen previously has improved. PLEURA: No significant pleural effusion identified, no pneumothorax apparent. CARDIOVASCULAR: Aortic calcification Mild cardiomegaly no pulmonary vascular congestion. OSSEOUS STRUCTURES: No significant abnormalities. VISUALIZED UPPER ABDOMEN: Normal. OTHER FINDINGS: None. IMPRESSION: Dense alveolar infiltrate in both upper lobes increased from prior exam. The right lower lobe infiltrate seen previously has improved.
[2018-06-09] MEDS ORDERED: Vancomycin 2.5 GM in Sodium Chloride 0.9% 500 ML IVPB ONE (08:59)
[2018-06-09] MEDS: Mineral Oil/Petrolatum Opht Oint(3.5 gm) OU SCH ×3 (09:46→18:51)
[2018-06-09] MEDS: MEROPENEM 500 MG in NS 500 MG/50 ML BAG IVPB SCH (10:04)
[2018-06-09] MEDS: Oxychlorosene Topical 2 gm Packet TOP SCH (10:05)
--- NOTE | 2018-06-09 10:39 | CP.PCM.PN ---
Subjective - Date & Time of Evaluation Date of Evaluation: 06/09/18 Time of Evaluation: 10:36 - Subjective Subjective: ICU Progress Note for Dr. Horowitz Patient seen and examined overnight. Patient remains unresponsive and severely acidotic despite several amps of bicarb and drip. ROS unobtainable 2/2 patient's current mental status. Objective - Vital Signs/Intake and Output Vital Signs (last 24 hours): Temp Pulse Resp BP Pulse Ox 91.6 F L 78 20 114/43 L 90 L 06/09/18 08:01 06/09/18 08:01 06/08/18 11:20 06/09/18 09:45 06/09/18 08:01 Intake and Output: 06/09/18 06/09/18 06:59 18:59 Intake Total 2758 250 Output Total 40 Balance 2718 250 - Medications Medications: Current Medications Acetaminophen (Tylenol 325mg Tab) 650 mg PO Q6H PRN PRN Reason: Fever >100.4 F Last Admin: 05/30/18 01:30 Dose: 650 mg Acetylcysteine (Acetylcysteine 20%) 4 ml IH BIDRESP [facility] Last Admin: 06/09/18 07:16 Dose: 4 ml Albuterol/Ipratropium (Duoneb 3 Mg/0.5 Mg (3 Ml) Ud) 3 ml IH Q2H PRN PRN Reason: Shortness of Breath Last Admin: 06/08/18 21:30 Dose: 3 ml Amlodipine Besylate (Norvasc) 10 mg PO DAILY [facility] Last Admin: 06/02/18 09:34 Dose: Not Given Artificial Tears (Artificial Tears Opht Oint) 0 gm OU QID [facility] Last Admin: 06/09/18 09:46 Dose: 1 drop Aspirin (Aspirin Chewable) 81 mg PO DAILY [facility] Last Admin: 06/09/18 10:32 Dose: Not Given Atorvastatin Calcium (Lipitor) 40 mg PO QOTHERDAY [facility] Last Admin: 06/08/18 09:45 Dose: 40 mg Clonidine HCl (Catapres) 0.3 mg PO TID [facility] Last Admin: 06/03/18 10:50 Dose: Not Given Furosemide (Lasix) 40 mg IVP Q12 [facility] Last Admin: 06/08/18 09:48 Dose: Not Given Hydralazine HCl (Apresoline) 25 mg PO Q6H [facility] Last Admin: 06/02/18 05:37 Dose: Not Given Hydromorphone HCl (Dilaudid) 0.5 mg IVP Q4H PRN PRN Reason: Pain, moderate (4-7) Last Admin: 06/08/18 02:52 Dose: 0.5 mg Meropenem/Sodium Chloride (Merrem Iv 500 Mg/Ns 50 Ml) 500 mg in 50 mls @ 100 mls/hr IVPB Q12 [facility]; Protocol Stop: 06/15/18 11:19 Last Admin: 06/09/18 10:04 Dose: 100 mls/hr Vasopressin 20 units/ Sodium (Chloride) 101 mls @ 9.09 mls/hr IV .[id number] [facility]; Protocol Last Admin: 06/09/18 09:45 Dose: 9.09 mls/hr Sodium Bicarbonate 150 meq/ (Dextrose) 1,150 mls @ 100 mls/hr IV .[id number] [facility] Last Admin: 06/09/18 02:03 Dose: 100 mls/hr NOREPINEPHRINE BIT/0.9 % NACL (Levophed 4 Mg/ 250 Ml Ns Premixed) 4 mg in 250 mls @ 15 mls/hr IV .[id number] PRN; Protocol PRN Reason: TITRATE PER MD ORDER Last Admin: 06/09/18 09:43 Dose: 20 mcg/min, 75 mls/hr Levofloxacin/Dextrose (Levaquin 500mg) 500 mg in 100 mls @ 100 mls/hr IVPB Q48H [facility]; Protocol Vancomycin HCl 2.5 gm/ Sodium (Chloride) 500 mls @ 170 mls/hr IVPB ONCE ONE; Protocol Stop: 06/09/18 11:55 Last Admin: 06/09/18 09:46 Dose: 170 mls/hr Insulin Human Lispro (Humalog High) 0 units SC ACHS [facility]; Protocol Last Admin: 06/09/18 08:12 Dose: Not Given Insulin Lispro Protam/Lispro Human (Humalog Mix 75/25) 10 units SC ACBD [facility] Last Admin: 06/09/18 08:12 Dose: Not Given Levalbuterol HCl (Xopenex) 1.25 mg IH [id number] [facility] Last Admin: 06/09/18 07:16 Dose: 1.25 mg Metoprolol Tartrate (Lopressor) 50 mg PO Q12H [facility] Last Admin: 05/30/18 01:30 Dose: 50 mg Ondansetron HCl (Zofran Inj) 4 mg IVP Q6H PRN PRN Reason: Nausea/Vomiting Oxychlorosene Sodium (Clorpactin Wcs-90) 2 gm TOP DAILY [facility] Last Admin: 06/09/18 10:05 Dose: Not Given Pantoprazole Sodium (Protonix Inj) 40 mg IV Q12H [facility] Last Admin: 06/09/18 02:05 Dose: 40 mg Simethicone (Mylicon Chew Tab) 80 mg PO HS PRN PRN Reason: GI distress Last Admin: 05/31/18 09:48 Dose: 80 mg - Labs Labs: 06/09/18 05:30 06/09/18 05:30 PT 48.1 SECONDS (9.4-12.5) H 06/09/18 05:30 INR 4.26 H* 06/09/18 05:30 APTT 53.3 Seconds (26.9-38.3) H 06/09/18 05:30 - Constitutional Appears: Toxic, Confused - Head Exam Head Exam: ATRAUMATIC, NORMOCEPHALIC - Eye Exam Eye Exam: Scleral icterus. absent: EOMI, PERRL (pupils non-reactive to light) - ENT Exam Additional comments: ET tube in place - Neck Exam Additional comments: LIJ TLC in place, no signs of erythema, discharge, bleeding - Respiratory Exam Respiratory Exam: Decreased Breath Sounds (b/l), Rales, Rhonchi. absent: Wheezes - Cardiovascular Exam Cardiovascular Exam: Irregular Rhythm, +S1, +S2. absent: Gallop, Rubs, Murmur - GI/Abdominal Exam GI & Abdominal Exam: Soft. absent: Distended, Guarding, Tenderness, Rebound - Extremities Exam Extremities Exam: Normal Inspection - Neurological Exam Neurological Exam: absent: Alert, Awake, Oriented x3 - Skin Skin Exam: Pallor Assessment and Plan - Assessment and Plan (Free Text) Assessment: 67 year old with past medical history of type II diabetes mellitus, HTN, HLD, CAD, atrial fibrillation on coumadin, abdominal hernia, CVA who was intubated for hypoxic respiratory failure 2/2 cardiogenic vs non cardiogenic pulmonary edema and subsequently extubated. POD #6 for incarcerated ventral hernia surgery with small bowel resection and jejunocecal anastamosis for necrotic bowel. Marcus villa with acute change in mental status during hospital course. Patient still non-responsive. 1. ARDS with MODS (Acute hepatorenal failure) 2. Septic shock 2/2 PNA vs left 2nd toe osteomyelitis 3. Aspiration PNA 4. SBO 2/2 ventral hernia s/p repair reanastamosis 5. ARF 6. Hyperkalemia 7. Chronic A-fib
--- NOTE | 2018-06-09 10:42 | CP.PCM.PN ---
<Sidney Kunz - Last Filed: 06/09/18 10:27> Subjective - Date & Time of Evaluation Date of Evaluation: 06/09/18 Time of Evaluation: 10:28 - Subjective Subjective: PGY-[address] Watkins Patient yesterday evening became hypotensive with respiratory distress - she was intubated and TLC was placed with 2 pressors started. Currently still on vent with pressor support. ROS are not obtainable. Objective - Vital Signs/Intake and Output Vital Signs (last 24 hours): Temp Pulse Resp BP Pulse Ox 91.6 F L 78 20 114/43 L 90 L 06/09/18 08:01 06/09/18 08:01 06/08/18 11:20 06/09/18 09:45 06/09/18 08:01 Intake and Output: 06/09/18 06/09/18 06:59 18:59 Intake Total 2758 250 Output Total 40 Balance 2718 250 - Medications Medications: Current Medications Acetaminophen (Tylenol 325mg Tab) 650 mg PO Q6H PRN PRN Reason: Fever >100.4 F Last Admin: 05/30/18 01:30 Dose: 650 mg Acetylcysteine (Acetylcysteine 20%) 4 ml IH BIDRESP [facility] Last Admin: 06/09/18 07:16 Dose: 4 ml Albuterol/Ipratropium (Duoneb 3 Mg/0.5 Mg (3 Ml) Ud) 3 ml IH Q2H PRN PRN Reason: Shortness of Breath Last Admin: 06/08/18 21:30 Dose: 3 ml Amlodipine Besylate (Norvasc) 10 mg PO DAILY [facility] Last Admin: 06/02/18 09:34 Dose: Not Given Artificial Tears (Artificial Tears Opht Oint) 0 gm OU QID [facility] Last Admin: 06/09/18 09:46 Dose: 1 drop Aspirin (Aspirin Chewable) 81 mg PO DAILY [facility] Last Admin: 06/08/18 09:45 Dose: 81 mg Atorvastatin Calcium (Lipitor) 40 mg PO QOTHERDAY [facility] Last Admin: 06/08/18 09:45 Dose: 40 mg Clonidine HCl (Catapres) 0.3 mg PO TID [facility] Last Admin: 06/03/18 10:50 Dose: Not Given Furosemide (Lasix) 40 mg IVP Q12 [facility] Last Admin: 06/08/18 09:48 Dose: Not Given Hydralazine HCl (Apresoline) 25 mg PO Q6H [facility] Last Admin: 06/02/18 05:37 Dose: Not Given Hydromorphone HCl (Dilaudid) 0.5 mg IVP Q4H PRN PRN Reason: Pain, moderate (4-7) Last Admin: 06/08/18 02:52 Dose: 0.5 mg Meropenem/Sodium Chloride (Merrem Iv 500 Mg/Ns 50 Ml) 500 mg in 50 mls @ 100 mls/hr IVPB Q12 [facility]; Protocol Stop: 06/15/18 11:19 Last Admin: 06/09/18 10:04 Dose: 100 mls/hr Vasopressin 20 units/ Sodium (Chloride) 101 mls @ 9.09 mls/hr IV .[id number] [facility]; Protocol Last Admin: 06/09/18 09:45 Dose: 9.09 mls/hr Sodium Bicarbonate 150 meq/ (Dextrose) 1,150 mls @ 100 mls/hr IV .[id number] [facility] Last Admin: 06/09/18 02:03 Dose: 100 mls/hr NOREPINEPHRINE BIT/0.9 % NACL (Levophed 4 Mg/ 250 Ml Ns Premixed) 4 mg in 250 mls @ 15 mls/hr IV .[id number] PRN; Protocol PRN Reason: TITRATE PER MD ORDER Last Admin: 06/09/18 09:43 Dose: 20 mcg/min, 75 mls/hr Levofloxacin/Dextrose (Levaquin 500mg) 500 mg in 100 mls @ 100 mls/hr IVPB Q48H [facility]; Protocol Vancomycin HCl 2.5 gm/ Sodium (Chloride) 500 mls @ 170 mls/hr IVPB ONCE ONE; Protocol Stop: 06/09/18 11:55 Last Admin: 06/09/18 09:46 Dose: 170 mls/hr Insulin Human Lispro (Humalog High) 0 units SC ACHS [facility]; Protocol Last Admin: 06/09/18 08:12 Dose: Not Given Insulin Lispro Protam/Lispro Human (Humalog Mix 75/25) 10 units SC ACBD [facility] Last Admin: 06/09/18 08:12 Dose: Not Given Levalbuterol HCl (Xopenex) 1.25 mg IH [id number] [facility] Last Admin: 06/09/18 07:16 Dose: 1.25 mg Metoprolol Tartrate (Lopressor) 50 mg PO Q12H [facility] Last Admin: 05/30/18 01:30 Dose: 50 mg Ondansetron HCl (Zofran Inj) 4 mg IVP Q6H PRN PRN Reason: Nausea/Vomiting Oxychlorosene Sodium (Clorpactin Wcs-90) 2 gm TOP DAILY [facility] Last Admin: 06/09/18 10:05 Dose: Not Given Pantoprazole Sodium (Protonix Inj) 40 mg IV Q12H [facility] Last Admin: 06/09/18 02:05 Dose: 40 mg Simethicone (Mylicon Chew Tab) 80 mg PO PCHS PRN PRN Reason: GI distress Last Admin: 05/31/18 09:48 Dose: 80 mg - Labs Labs: 06/09/18 05:30 06/09/18 05:30 PT 48.1 SECONDS (9.4-12.5) H 06/09/18 05:30 INR 4.26 H* 06/09/18 05:30 APTT 53.3 Seconds (26.9-38.3) H 06/09/18 05:30 - Additional Findings Additional findings: - Constitutional Appears: Older Than Stated Age, Chronically Ill - Head Exam Head Exam: ATRAUMATIC, NORMAL INSPECTION, NORMOCEPHALIC - Eye Exam Eye Exam: absent: Scleral icterus - ENT Exam ENT Exam: Mucous Membranes Dry Additional comments: intubated - Respiratory Exam Additional comments: Intubated and sedated. On 100% FiO2 via ETT - Cardiovascular Exam Cardiovascular Exam: absent: JVD - GI/Abdominal Exam GI & Abdominal Exam: Soft. absent: Distended, Firm, Guarding Additional comments: Alejandro drains in place in left and right in past 24 hours; sanguinous output - Neurological Exam Additional comments: Intubated and sedated Assessment and Plan - Assessment and Plan (Free Text) Plan: 67 year old with past medical history of type II diabetes mellitus, HTN, HLD, CAD, atrial fibrillation on coumadin, abdominal hernia, CVA, PVD: #GILBERTO on CKD3b likely 2/2 to contrast induced nephropathy #s/p strangulated ventral hernia repair w small bowel resection, jejunocecal anastamosis and primary closure of hernia #Septic shock 2/2 PNA vs left 2nd toe osteomyelitis #Hypochromic Microcytic Anemia #CKD 3b #Hypertension #Hyperkalemia Plan: Patient's vitals, blood work, and imaging noted in EMR. Worsening status due to likely septic shock (intubated and requiring 2 pressors) as of yesterday with worsening renal function indicated by worsening creatinine clearance, hyperkalem ia, and no urine output. She will require hemodialysis - son is POA and to make a decision regarding HD today. Blood gas showing acidosis - Bicarb ggt started. GILBERTO likely secondary to contrast induced nephropathy at first coupled with volume depletion in light of patient's multiple episodes of emesis and decreased PO intake prior to going to the OR in light of the obstruction. Avoid nephrotoxic drugs. Currently holding Novrasc, Lopressor, Labetalol, Hydralazine and Catapres in light of low BP. Would prefer to give clonidine as primary prn anti-hypertensive rather than hydralazine. Patient currently only on Meropenem as per ID - azactam, linezolid and flagyl have been discontinued - blood cul tures continue to be negative. Venofer 200mg ivpb given 06/08/18 to treat iron deficiency anemia. s/p exlap, small bowel resection, incidental appendectomy, with jejunocecal anastamosis on 06/02/18. Will continue to monitor urine output closely. Continue management as per MICU team. Discussed with Dr. Watkins <Kailash Watkins S - Last Filed: 06/09/18 19:02> Objective - Vital Signs/Intake and Output Vital Signs (last 24 hours): Temp Pulse Resp BP Pulse Ox 99.3 F 89 18 88/35 L 90 L 06/09/18 12:00 06/09/18 12:00 06/09/18 12:00 06/09/18 12:00 06/09/18 08:01 Intake and Output: 06/09/18 06/09/18 06:59 18:59 Intake Total 2758 500 Output Total 40 1700 Balance 2718 -1200 - Medications Medications: Current Medications Acetaminophen (Tylenol 325mg Tab) 650 mg PO Q6H PRN PRN Reason: Fever >100.4 F Last Admin: 05/30/18 01:30 Dose: 650 mg Acetylcysteine (Acetylcysteine 20%) 4 ml IH BIDRESP [facility] Last Admin: 06/09/18 07:16 Dose: 4 ml Albuterol/Ipratropium (Duoneb 3 Mg/0.5 Mg (3 Ml) Ud) 3 ml IH Q2H PRN PRN Reason: Shortness of Breath Last Admin: 06/08/18 21:30 Dose: 3 ml Amlodipine Besylate (Norvasc) 10 mg PO DAILY [facility] Last Admin: 06/02/18 09:34 Dose: Not Given Artificial Tears (Artificial Tears Opht Oint) 0 gm OU QID [facility] Last Admin: 06/09/18 14:17 Dose: 1 applic Aspirin (Aspirin Chewable) 81 mg PO DAILY [facility] Last Admin: 06/09/18 10:32 Dose: Not Given Atorvastatin Calcium (Lipitor) 40 mg PO QOTHERDAY [facility] Last Admin: 06/08/18 09:45 Dose: 40 mg Clonidine HCl (Catapres) 0.3 mg PO TID [facility] Last Admin: 06/03/18 10:50 Dose: Not Given Furosemide (Lasix) 40 mg IVP Q12 [facility] Last Admin: 06/08/18 09:48 Dose: Not Given Hydralazine HCl (Apresoline) 25 mg PO Q6H [facility] Last Admin: 06/02/18 05:37 Dose: Not Given Hydromorphone HCl (Dilaudid) 0.5 mg IVP Q4H PRN PRN Reason: Pain, moderate (4-7) Last Admin: 06/08/18 02:52 Dose: 0.5 mg Meropenem/Sodium Chloride (Merrem Iv 500 Mg/Ns 50 Ml) 500 mg in 50 mls @ 100 mls/hr IVPB Q12 [facility]; Protocol Stop: 06/15/18 11:19 Last Admin: 06/09/18 10:04 Dose: 100 mls/hr Vasopressin 20 units/ Sodium (Chloride) 101 mls @ 9.09 mls/hr IV .[id number] [facility]; Protocol Last Admin: 06/09/18 09:45 Dose: 9.09 mls/hr Sodium Bicarbonate 150 meq/ (Dextrose) 1,150 mls @ 100 mls/hr IV .[id number] [facility] Last Admin: 06/09/18 02:03 Dose: 100 mls/hr NOREPINEPHRINE BIT/0.9 % NACL (Levophed 4 Mg/ 250 Ml Ns Premixed) 4 mg in 250 mls @ 15 mls/hr IV .[id number] PRN; Protocol PRN Reason: TITRATE PER MD ORDER Last Admin: 06/09/18 13:24 Dose: 20 mcg/min, 75 mls/hr Levofloxacin/Dextrose (Levaquin 500mg) 500 mg in 100 mls @ 100 mls/hr IVPB Q48H [facility]; Protocol Insulin Human Lispro (Humalog High) 0 units SC ACHS [facility]; Protocol Last Admin: 06/09/18 13:34 Dose: Not Given Insulin Lispro Protam/Lispro Human (Humalog Mix 75/25) 10 units SC ACBD [facility] Last Admin: 06/09/18 08:12 Dose: Not Given Levalbuterol HCl (Xopenex) 1.25 mg IH [id number] [facility] Last Admin: 06/09/18 13:33 Dose: 1.25 mg Metoprolol Tartrate (Lopressor) 50 mg PO Q12H [facility] Last Admin: 05/30/18 01:30 Dose: 50 mg Ondansetron HCl (Zofran Inj) 4 mg IVP Q6H PRN PRN Reason: Nausea/Vomiting Oxychlorosene Sodium (Clorpactin Wcs-90) 2 gm TOP DAILY [facility] Last Admin: 06/09/18 10:05 Dose: Not Given Pantoprazole Sodium (Protonix Inj) 40 mg IV Q12H [facility] Last Admin: 06/09/18 02:05 Dose: 40 mg Simethicone (Mylicon Chew Tab) 80 mg PO PCHS PRN PRN Reason: GI distress Last Admin: 05/31/18 09:48 Dose: 80 mg - Labs Labs: 06/09/18 05:30 06/09/18 05:30 PT 48.1 SECONDS (9.4-12.5) H 06/09/18 05:30 INR 4.26 H* 06/09/18 05:30 APTT 53.3 Seconds (26.9-38.3) H 06/09/18 05:30 Assessment and Plan - Assessment and Plan (Free Text) Plan: Patient was seen and examined by me. I have reviewed the note of the medical insurance clerk and have gone over the plan of care. I agree with the note. I have reviewed the medications and the last labs. Pt is critically ill and declining. GILBERTO is due to contrast nephropathy but sepsis has prevented further recovery. Pt is in septic shock with low urine output. BP meds are on hold. Dr López spoke to son and pt will not be started on HD. Pt had developed a strangulated hernia and was taken emergently to the OR for small bowel resection. She has a poor p rognosis for recovery at this time. She is intubated and is hypervolemic. She will not be able to improve her respiratory status. She is in ARDS. Severe metabolic acidosis is present with respiratory acidosis.
--- NOTE | 2018-06-09 11:01 | CP.CCUPN ---
<CyndyJohn - Last Filed: 06/09/18 10:58> CCU Subjective - Physician Review Subjective (Free Text): ICU Progress Note for Dr. Horowitz Patient seen and examined overnight. Patient remains unresponsive and severely acidotic despite several amps of bicarb and drip. ROS unobtainable 2/2 patient's current mental status. CCU Objective - Vital Signs / Intake & Output Vital Signs (Last 4 hours): Vital Signs Temp Pulse BP Pulse Ox 06/09/18 09:45 114/43 L 06/09/18 08:31 113/43 L 06/09/18 08:01 91.6 F L 78 113/43 L 90 L 06/09/18 08:00 91.6 F L 85 92 L 06/09/18 07:05 91.0 F L 80 119/69 87 L 06/09/18 07:00 90.9 F L 81 89/57 L 88 L Intake and Output (Last 8hrs): Intake & Output 06/08/18 06/09/18 06/09/18 22:59 06:59 14:59 Intake Total 1500 2758 250 Output Total 85 40 Balance 1415 2718 250 Intake: IV 1500 2758 250 Left External Jugular 1500 2258 Oral 0 0 Output: Gastric Amount 0 Stomach 0 Drainage 65 40 Left 30 30 Right 35 10 Urine 20 0 Urethral (Kelley) 20 0 Urine, Voided 0 Other: # Bowel Movements 0 0 - Physical Exam Head: Positive for: Atraumatic, Normocephalic Pupils: Positive for: Non-Reactive (dilated) Extroacular Muscles: Positive for: EOMI Conjunctiva: Positive for: Icteric Mouth: Positive for: Moist Mucous Membranes, Other (ET tube in place) Neck: Positive for: Normal Range of Motion Respiratory/Chest: Positive for: Decreased Breath Sounds (b/l), Rales, Rhonchi. Negative for: Accessory Muscle Use, Wheezes Cardiovascular: Positive for: Normal S1, S2, Irregular Rhythm. Negative for: Murmurs Abdomen: Positive for: Normal Bowel Sounds, Other (dressing is non draining/bleeding). Negative for: Tenderness, Distention, Peritoneal Signs Back: Positive for: Normal Inspection Upper Extremity: Positive for: Normal Inspection. Negative for: Cyanosis, Edema Lower Extremity: Positive for: Normal Inspection, Normal ROM, Other (Grangrenous left 2nd toe noted). Negative for: Edema, CALF TENDERNESS, Marek's Sign Neurological: Positive for: Other (intubated, no gag reflex) Skin: Positive for: Dry, Cold, Pale. Negative for: Rashes - Medications Active Medications: Active Medications Generic Name Dose Route Start Last Admin Trade Name Freq PRN Reason Stop Dose Admin Acetaminophen 650 mg 05/21/18 20:42 05/30/18 01:30 Tylenol 325mg Tab PO 650 mg Q6H PRN Administration Fever >100.4 F Acetylcysteine 4 ml 06/07/18 08:30 06/09/18 07:16 Acetylcysteine 20% IH 4 ml BIDRESP PEYMAN Administration Albuterol/Ipratropium 3 ml 06/02/18 18:21 06/08/18 21:30 Duoneb 3 Mg/0.5 Mg (3 Ml) Ud IH 3 ml Q2H PRN Administration Shortness of Breath Amlodipine Besylate 10 mg 05/22/18 10:00 06/02/18 09:34 Norvasc PO Not Given DAILY [facility] Artificial Tears 0 gm 06/09/18 10:00 06/09/18 09:46 Artificial Tears Opht Oint OU 1 drop QID PEYMAN Administration Aspirin 81 mg 05/28/18 10:00 06/09/18 10:32 Aspirin Chewable PO Not Given DAILY [facility] Atorvastatin Calcium 40 mg 05/23/18 10:00 06/08/18 09:45 Lipitor PO 40 mg QOTHERDAY PEYMAN Administration Clonidine HCl 0.3 mg 05/22/18 10:00 06/03/18 10:50 Catapres PO Not Given TID [facility] Furosemide 40 mg 06/04/18 22:00 06/08/18 09:48 Lasix IVP Not Given Q12 [facility] Hydralazine HCl 25 mg 05/31/18 06:15 06/02/18 05:37 Apresoline PO Not Given Q6H [facility] Hydromorphone HCl 0.5 mg 06/03/18 11:47 06/08/18 02:52 Dilaudid IVP 0.5 mg Q4H PRN Administration Pain, moderate (4-7) Meropenem/Sodium Chloride 500 mg in 50 mls @ 100 mls/hr 06/08/18 11:18 06/09/18 10:04 Merrem Iv 500 Mg/Ns 50 Ml IVPB 06/15/18 11:19 100 mls/hr Q12 [facility] Administration Protocol Vasopressin 20 units/ Sodium 101 mls @ 9.09 mls/hr 06/08/18 13:45 06/09/18 09:45 Chloride IV 9.09 mls/hr .[id number] [facility] Administration Protocol 0.03 U/MIN Sodium Bicarbonate 150 meq/ 1,150 mls @ 100 mls/hr 06/08/18 14:30 06/09/18 02:03 Dextrose IV 100 mls/hr .[id number] [facility] Administration NOREPINEPHRINE BIT/0.9 % NACL 4 mg in 250 mls @ 15 mls/hr 06/08/18 15:53 06/09/18 09:43 Levophed 4 Mg/ 250 Ml Ns Premixed IV 20 mcg/min .[id number] PRN 75 mls/hr TITRATE PER MD ORDER Administration Protocol 4 MCG/MIN Levofloxacin/Dextrose 500 mg in 100 mls @ 100 mls/hr 06/10/18 09:00 Levaquin 500mg IVPB Q48H [facility] Protocol Vancomycin HCl 2.5 gm/ Sodium 500 mls @ 170 mls/hr 06/09/18 08:59 06/09/18 09:46 Chloride IVPB 06/09/18 11:55 170 mls/hr ONCE ONE Administration Protocol Insulin Human Lispro 0 units 05/21/18 22:00 06/09/18 08:12 Humalog High SC Not Given ACHS [facility] Protocol Insulin Lispro Protam/Lispro Human 10 units 05/25/18 16:30 06/09/18 08:12 Humalog Mix 75/25 SC Not Given ACBD [facility] Levalbuterol HCl 1.25 mg 05/26/18 14:00 06/09/18 07:16 Xopenex IH 1.25 mg [id number] [facility]YMAN Administration Metoprolol Tartrate 50 mg 05/28/18 13:30 05/30/18 01:30 Lopressor PO 50 mg Q12H [facility] Administration Ondansetron HCl 4 mg 06/01/18 10:58 Zofran Inj IVP Q6H PRN Nausea/Vomiting Oxychlorosene Sodium 2 gm 06/02/18 10:00 06/09/18 10:05 Clorpactin Wcs-90 TOP Not Given DAILY [facility] Pantoprazole Sodium 40 mg 06/08/18 13:15 06/09/18 02:05 Protonix Inj IV 40 mg Q12H [facility] Administration Simethicone 80 mg 05/30/18 04:02 05/31/18 09:48 Mylicon Chew Tab PO 80 mg PCHS PRN Administration GI distress - Patient Studies Lab Studies: Microbiology Studies 06/07/18 20:30 Urine Culture - Final Urine,Catheterized Yeast Species 06/07/18 10:40 Blood Culture - Preliminary Blood-Venous NO GROWTH AFTER 24 HOURS 06/07/18 10:15 Blood Culture - Preliminary Blood-Venous NO GROWTH AFTER 24 HOURS Lab Studies 06/09/18 06/09/18 06/09/18 Range/Units 07:31 05:30 05:30 WBC (4.5-11.0) 10^3/uL RBC (3.5-6.1) 10^6/uL Hgb (12.0-16.0) g/dL Hct (36.0-48.0) % MCV (80.0-105.0) fl MCH (25.0-35.0) pg MCHC (31.0-37.0) g/dl RDW (11.5-14.5) % Plt Count (120.0-450.0) 10^3/uL MPV (7.0-11.0) fl Neut % (Auto) (50.0-68.0) % Lymph % (Auto) (22.0-35.0) % [place] % (Auto) (1.0-6.0) % Eos % (Auto) (1.5-5.0) % Baso % (Auto) (0.0-3.0) % Lymph # (Auto) (1.2-3.4) [place] # (Auto) (0.1-0.6) Eos # (Auto) (0.0-0.7) Baso # (Auto) (0.0-2.0) K/mm3 Absolute Neuts (auto) (1.4-6.5) Corrected WBC (Man) (4.5-11.0) K/mm3 Neutrophils % (Manual) (50.0-70.0) % Band Neutrophils % (0-2) % Lymphocytes % (Manual) (22.0-35.0) % Monocytes % (Manual) Metamyelocytes % % Nucleated RBC % % Platelet Evaluation (NORMAL) Poikilocytosis (manual Anisocytosis (manual) [place] Cells Acanthocytes (Spur) Schistocytes PT 48.1 H (9.4-12.5) SECONDS INR 4.26 H* APTT 53.3 H (26.9-38.3) Seconds pCO2 (35-45) mm/Hg pO2 (80-100) mm/Hg HCO3 (21-28) mmol/L ABG pH (7.35-7.45) ABG Total CO2 (22-28) mmol.L ABG O2 Saturation (95-98) % ABG O2 Content (15-23) ML/dl ABG Base Excess (-2.0-3.0) mmol/L ABG Hemoglobin (11.7-17.4) g/dL ABG Carboxyhemoglobin (0.5-1.5) % POC ABG HHb (Measured) (0-5) % ABG Methemoglobin (0.0-3.0) % ABG O2 Capacity (16-24) mL/dl Hgb O2 Saturation (95.0-98.0) % FiO2 % Crit Value Called To Crit Value Called By Blood Gas Notified Time Sodium 148 (132-148) mmol/L Potassium 5.4 H (3.6-5.0) mmol/L Chloride 114 H (98-107) mmol/L Carbon Dioxide 13 L (21-33) mmol/L Anion Gap 26 H (10-20) BUN 91 H (7-21) mg/dL Creatinine 3.2 H (0.7-1.2) mg/dl Est GFR ( Amer) 17 Est GFR (Non-Af Amer) 14 POC Glucose (mg/dL) 91 (65-110) mg/dL Random Glucose 106 (70-110) mg/dL Calcium 7.2 L (8.4-10.5) mg/dL Phosphorus 11.6 H (2.5-4.5) mg/dL Magnesium 3.0 H (1.7-2.2) mg/dL Total Bilirubin 8.4 H (0.2-1.3) mg/dL Direct Bilirubin (0.0-0.4) mg/dL AST 2150 H (14-36) U/L ALT 291 H (7-56) U/L Alkaline Phosphatase 90 (38-126) U/L Total Protein 4.9 L (5.8-8.3) g/dL Albumin 2.1 L (3.0-4.8) g/dL Globulin 2.8 gm/dL Albumin/Globulin Ratio 0.8 L (1.1-1.8) Blood Type Antibody Screen Crossmatch BBK History Checked 06/09/18 06/09/18 06/08/18 Range/Units 05:30 05:00 22:55 WBC 28.1 H* (4.5-11.0) 10^3/uL RBC 2.56 L (3.5-6.1) 10^6/uL Hgb 7.0 L (12.0-16.0) g/dL Hct 22.8 L (36.0-48.0) % MCV 89.1 (80.0-105.0) fl MCH 27.3 (25.0-35.0) pg MCHC 30.7 L (31.0-37.0) g/dl RDW 19.9 H (11.5-14.5) % Plt Count 110 L (120.0-450.0) 10^3/uL MPV 9.6 (7.0-11.0) fl Neut % (Auto) (50.0-68.0) % Lymph % (Auto) (22.0-35.0) % [place] % (Auto) (1.0-6.0) % Eos % (Auto) (1.5-5.0) % Baso % (Auto) (0.0-3.0) % Lymph # (Auto) (1.2-3.4) [place] # (Auto) (0.1-0.6) Eos # (Auto) (0.0-0.7) Baso # (Auto) (0.0-2.0) K/mm3 Absolute Neuts (auto) (1.4-6.5) Corrected WBC (Man) 26.3 H (4.5-11.0) K/mm3 Neutrophils % (Manual) 95 H (50.0-70.0) % Band Neutrophils % 1 (0-2) % Lymphocytes % (Manual) 3 L (22.0-35.0) % Monocytes % (Manual) TEST NOT PERFORMED Metamyelocytes % 1 % Nucleated RBC % 7 % Platelet Evaluation Low (NORMAL) Poikilocytosis (manual 1+ Anisocytosis (manual) 1+ Hema Cells 1+ Acanthocytes (Spur) 1+ Schistocytes Slight PT (9.4-12.5) SECONDS INR APTT (26.9-38.3) Seconds pCO2 45 (35-45) mm/Hg pO2 56.0 L (80-100) mm/Hg HCO3 9.7 L* (21-28) mmol/L ABG pH 6.94 L* (7.35-7.45) ABG Total CO2 11.1 L (22-28) mmol.L ABG O2 Saturation 88.3 L (95-98) % ABG O2 Content 8.7 L (15-23) ML/dl ABG Base Excess -21.0 L (-2.0-3.0) mmol/L ABG Hemoglobin 7.3 L (11.7-17.4) g/dL ABG Carboxyhemoglobin 3.4 H (0.5-1.5) % POC ABG HHb (Measured) 11.1 H (0-5) % ABG Methemoglobin 1.5 (0.0-3.0) % ABG O2 Capacity 9.9 L (16-24) mL/dl Hgb O2 Saturation 84.1 L (95.0-98.0) % FiO2 100.0 % Crit Value Called To Brian encinas Crit Value Called By [facility] Blood Gas Notified Time 514 Sodium 144 (132-148) mmol/L Potassium 5.2 H (3.6-5.0) mmol/L Chloride 115 H (98-107) mmol/L Carbon Dioxide 11 L (21-33) mmol/L Anion Gap 24 H (10-20) BUN 91 H (7-21) mg/dL Creatinine 3.1 H (0.7-1.2) mg/dl Est GFR ( Amer) 18 Est GFR (Non-Af Amer) 15 POC Glucose (mg/dL) (65-110) mg/dL Random Glucose 151 H (70-110) mg/dL Calcium 7.6 L (8.4-10.5) mg/dL Phosphorus (2.5-4.5) mg/dL Magnesium (1.7-2.2) mg/dL Total Bilirubin (0.2-1.3) mg/dL Direct Bilirubin (0.0-0.4) mg/dL AST (14-36) U/L ALT (7-56) U/L Alkaline Phosphatase (38-126) U/L Total Protein (5.8-8.3) g/dL Albumin (3.0-4.8) g/dL Globulin gm/dL Albumin/Globulin Ratio (1.1-1.8) Blood Type Antibody Screen Crossmatch BBK History Checked 06/08/18 06/08/18 06/08/18 Range/Units 21:31 21:31 21:18 WBC 29.7 H* D (4.5-11.0) 10^3/uL RBC 2.77 L (3.5-6.1) 10^6/uL Hgb 7.4 L (12.0-16.0) g/dL Hct 25.1 L (36.0-48.0) % MCV 90.6 (80.0-105.0) fl MCH 26.7 (25.0-35.0) pg MCHC 29.5 L (31.0-37.0) g/dl RDW 20.1 H (11.5-14.5) % Plt Count 172 (120.0-450.0) 10^3/uL MPV 9.7 (7.0-11.0) fl Neut % (Auto) (50.0-68.0) % Lymph % (Auto) (22.0-35.0) % [place] % (Auto) (1.0-6.0) % Eos % (Auto) (1.5-5.0) % Baso % (Auto) (0.0-3.0) % Lymph # (Auto) (1.2-3.4) [place] # (Auto) (0.1-0.6) Eos # (Auto) (0.0-0.7) Baso # (Auto) (0.0-2.0) K/mm3 Absolute Neuts (auto) (1.4-6.5) Corrected WBC (Man) (4.5-11.0) K/mm3 Neutrophils % (Manual) (50.0-70.0) % Band Neutrophils % (0-2) % Lymphocytes % (Manual) (22.0-35.0) % Monocytes % (Manual) Metamyelocytes % % Nucleated RBC % % Platelet Evaluation (NORMAL) Poikilocytosis (manual Anisocytosis (manual) Hema Cells Acanthocytes (Spur) Schistocytes PT 39.6 H (9.4-12.5) SECONDS INR 3.57 H* APTT 54.5 H (26.9-38.3) Seconds pCO2 (35-45) mm/Hg pO2 (80-100) mm/Hg HCO3 (21-28) mmol/L ABG pH (7.35-7.45) ABG Total CO2 (22-28) mmol.L ABG O2 Saturation (95-98) % ABG O2 Content (15-23) ML/dl ABG Base Excess (-2.0-3.0) mmol/L ABG Hemoglobin (11.7-17.4) g/dL ABG Carboxyhemoglobin (0.5-1.5) % POC ABG HHb (Measured) (0-5) % ABG Methemoglobin (0.0-3.0) % ABG O2 Capacity (16-24) mL/dl Hgb O2 Saturation (95.0-98.0) % FiO2 % Crit Value Called To Crit Value Called By Blood Gas Notified Time Sodium (132-148) mmol/L Potassium (3.6-5.0) mmol/L Chloride (98-107) mmol/L Carbon Dioxide (21-33) mmol/L Anion Gap (10-20) BUN (7-21) mg/dL Creatinine (0.7-1.2) mg/dl Est GFR ( Amer) Est GFR (Non-Af Amer) POC Glucose (mg/dL) 168 H (65-110) mg/dL Random Glucose (70-110) mg/dL Calcium (8.4-10.5) mg/dL Phosphorus (2.5-4.5) mg/dL Magnesium (1.7-2.2) mg/dL Total Bilirubin (0.2-1.3) mg/dL Direct Bilirubin (0.0-0.4) mg/dL AST (14-36) U/L ALT (7-56) U/L Alkaline Phosphatase (38-126) U/L Total Protein (5.8-8.3) g/dL Albumin (3.0-4.8) g/dL Globulin gm/dL Albumin/Globulin Ratio (1.1-1.8) Blood Type Antibody Screen Crossmatch BBK History Checked 06/08/18 06/08/18 06/08/18 Range/Units 16:25 14:00 14:00 WBC 22.3 H (4.5-11.0) 10^3/uL RBC 2.75 L (3.5-6.1) 10^6/uL Hgb 7.4 L (12.0-16.0) g/dL Hct 24.8 L (36.0-48.0) % MCV 90.2 D (80.0-105.0) fl MCH 26.9 (25.0-35.0) pg MCHC 29.8 L (31.0-37.0) g/dl RDW 19.8 H (11.5-14.5) % Plt Count 187 (120.0-450.0) 10^3/uL MPV 9.7 (7.0-11.0) fl Neut % (Auto) 93.2 H (50.0-68.0) % Lymph % (Auto) 5.3 L (22.0-35.0) % [place] % (Auto) 1.5 (1.0-6.0) % Eos % (Auto) 0.0 L (1.5-5.0) % Baso % (Auto) 0.0 (0.0-3.0) % Lymph # (Auto) 1.2 (1.2-3.4) [place] # (Auto) 0.3 (0.1-0.6) Eos # (Auto) 0.0 (0.0-0.7) Baso # (Auto) 0.01 (0.0-2.0) K/mm3 Absolute Neuts (auto) 20.80 H (1.4-6.5) Corrected WBC (Man) (4.5-11.0) K/mm3 Neutrophils % (Manual) (50.0-70.0) % Band Neutrophils % (0-2) % Lymphocytes % (Manual) (22.0-35.0) % Monocytes % (Manual) Metamyelocytes % % Nucleated RBC % % Platelet Evaluation (NORMAL) Poikilocytosis (manual Anisocytosis (manual) [place] Cells Acanthocytes (Spur) Schistocytes PT (9.4-12.5) SECONDS INR APTT (26.9-38.3) Seconds pCO2 (35-45) mm/Hg pO2 (80-100) mm/Hg HCO3 (21-28) mmol/L ABG pH (7.35-7.45) ABG Total CO2 (22-28) mmol.L ABG O2 Saturation (95-98) % ABG O2 Content (15-23) ML/dl ABG Base Excess (-2.0-3.0) mmol/L ABG Hemoglobin (11.7-17.4) g/dL ABG Carboxyhemoglobin (0.5-1.5) % POC ABG HHb (Measured) (0-5) % ABG Methemoglobin (0.0-3.0) % ABG O2 Capacity (16-24) mL/dl Hgb O2 Saturation (95.0-98.0) % FiO2 % Crit Value Called To Crit Value Called By Blood Gas Notified Time Sodium 145 (132-148) mmol/L Potassium 5.9 H* (3.6-5.0) mmol/L Chloride 115 H (98-107) mmol/L Carbon Dioxide 11 L (21-33) mmol/L Anion Gap 24 H (10-20) BUN 88 H (7-21) mg/dL Creatinine 3.1 H (0.7-1.2) mg/dl Est GFR ( Amer) 18 Est GFR (Non-Af Amer) 15 POC Glucose (mg/dL) 152 H (65-110) mg/dL Random Glucose 178 H (70-110) mg/dL Calcium 7.9 L (8.4-10.5) mg/dL Phosphorus (2.5-4.5) mg/dL Magnesium (1.7-2.2) mg/dL Total Bilirubin 5.8 H (0.2-1.3) mg/dL Direct Bilirubin 5.4 H (0.0-0.4) mg/dL AST 334 H D (14-36) U/L ALT 73 H (7-56) U/L Alkaline Phosphatase 78 (38-126) U/L Total Protein 5.2 L (5.8-8.3) g/dL Albumin 2.2 L (3.0-4.8) g/dL Globulin 3.0 gm/dL Albumin/Globulin Ratio 0.7 L (1.1-1.8) Blood Type Antibody Screen Crossmatch BBK History Checked 06/08/18 06/08/18 06/08/18 Range/Units 13:35 12:30 11:54 WBC (4.5-11.0) 10^3/uL RBC (3.5-6.1) 10^6/uL Hgb (12.0-16.0) g/dL Hct (36.0-48.0) % MCV (80.0-105.0) fl MCH (25.0-35.0) pg MCHC (31.0-37.0) g/dl RDW (11.5-14.5) % Plt Count (120.0-450.0) 10^3/uL MPV (7.0-11.0) fl Neut % (Auto) (50.0-68.0) % Lymph % (Auto) (22.0-35.0) % [place] % (Auto) (1.0-6.0) % Eos % (Auto) (1.5-5.0) % Baso % (Auto) (0.0-3.0) % Lymph # (Auto) (1.2-3.4) [place] # (Auto) (0.1-0.6) Eos # (Auto) (0.0-0.7) Baso # (Auto) (0.0-2.0) K/mm3 Absolute Neuts (auto) (1.4-6.5) Corrected WBC (Man) (4.5-11.0) K/mm3 Neutrophils % (Manual) (50.0-70.0) % Band Neutrophils % (0-2) % Lymphocytes % (Manual) (22.0-35.0) % Monocytes % (Manual) Metamyelocytes % % Nucleated RBC % % Platelet Evaluation (NORMAL) Poikilocytosis (manual Anisocytosis (manual) [place] Cells Acanthocytes (Spur) Schistocytes PT (9.4-12.5) SECONDS INR APTT (26.9-38.3) Seconds pCO2 28 L (35-45) mm/Hg pO2 78.0 L (80-100) mm/Hg HCO3 5.1 L* (21-28) mmol/L ABG pH 6.87 L* (7.35-7.45) ABG Total CO2 6.0 L (22-28) mmol.L ABG O2 Saturation 95.2 (95-98) % ABG O2 Content 8.5 L (15-23) ML/dl ABG Base Excess -26.1 L (-2.0-3.0) mmol/L ABG Hemoglobin 6.5 L (11.7-17.4) g/dL ABG Carboxyhemoglobin 2.9 H (0.5-1.5) % POC ABG HHb (Measured) 4.6 (0-5) % ABG Methemoglobin 1.7 (0.0-3.0) % ABG O2 Capacity 8.9 L (16-24) mL/dl Hgb O2 Saturation 90.9 L (95.0-98.0) % FiO2 100.0 % Crit Value Called To catherine Cerna Crit Value Called By katie Barbosa Blood Gas Notified Time 1349 Sodium (132-148) mmol/L Potassium (3.6-5.0) mmol/L Chloride (98-107) mmol/L Carbon Dioxide (21-33) mmol/L Anion Gap (10-20) BUN (7-21) mg/dL Creatinine (0.7-1.2) mg/dl Est GFR ( Amer) Est GFR (Non-Af Amer) POC Glucose (mg/dL) 89 (65-110) mg/dL Random Glucose (70-110) mg/dL Calcium (8.4-10.5) mg/dL Phosphorus (2.5-4.5) mg/dL Magnesium (1.7-2.2) mg/dL Total Bilirubin (0.2-1.3) mg/dL Direct Bilirubin (0.0-0.4) mg/dL AST (14-36) U/L ALT (7-56) U/L Alkaline Phosphatase (38-126) U/L Total Protein (5.8-8.3) g/dL Albumin (3.0-4.8) g/dL Globulin gm/dL Albumin/Globulin Ratio (1.1-1.8) Blood Type B POSITIVE Antibody Screen Negative Crossmatch See Detail BBK History Checked Patient has bt 06/08/18 Range/Units 07:17 WBC (4.5-11.0) 10^3/uL RBC (3.5-6.1) 10^6/uL Hgb (12.0-16.0) g/dL Hct (36.0-48.0) % MCV (80.0-105.0) fl MCH (25.0-35.0) pg MCHC (31.0-37.0) g/dl RDW (11.5-14.5) % Plt Count (120.0-450.0) 10^3/uL MPV (7.0-11.0) fl Neut % (Auto) (50.0-68.0) % Lymph % (Auto) (22.0-35.0) % [place] % (Auto) (1.0-6.0) % Eos % (Auto) (1.5-5.0) % Baso % (Auto) (0.0-3.0) % Lymph # (Auto) (1.2-3.4) [place] # (Auto) (0.1-0.6) Eos # (Auto) (0.0-0.7) Baso # (Auto) (0.0-2.0) K/mm3 Absolute Neuts (auto) (1.4-6.5) Corrected WBC (Man) (4.5-11.0) K/mm3 Neutrophils % (Manual) (50.0-70.0) % Band Neutrophils % (0-2) % Lymphocytes % (Manual) (22.0-35.0) % Monocytes % (Manual) Metamyelocytes % % Nucleated RBC % % Platelet Evaluation (NORMAL) Poikilocytosis (manual Anisocytosis (manual) [place] Cells Acanthocytes (Spur) Schistocytes PT (9.4-12.5) SECONDS INR APTT (26.9-38.3) Seconds pCO2 (35-45) mm/Hg pO2 (80-100) mm/Hg HCO3 (21-28) mmol/L ABG pH (7.35-7.45) ABG Total CO2 (22-28) mmol.L ABG O2 Saturation (95-98) % ABG O2 Content (15-23) ML/dl ABG Base Excess (-2.0-3.0) mmol/L ABG Hemoglobin (11.7-17.4) g/dL ABG Carboxyhemoglobin (0.5-1.5) % POC ABG HHb (Measured) (0-5) % ABG Methemoglobin (0.0-3.0) % ABG O2 Capacity (16-24) mL/dl Hgb O2 Saturation (95.0-98.0) % FiO2 % Crit Value Called To Crit Value Called By Blood Gas Notified Time Sodium (132-148) mmol/L Potassium (3.6-5.0) mmol/L Chloride (98-107) mmol/L Carbon Dioxide (21-33) mmol/L Anion Gap (10-20) BUN (7-21) mg/dL Creatinine (0.7-1.2) mg/dl Est GFR ( Amer) Est GFR (Non-Af Amer) POC Glucose (mg/dL) 145 H (65-110) mg/dL Random Glucose (70-110) mg/dL Calcium (8.4-10.5) mg/dL Phosphorus (2.5-4.5) mg/dL Magnesium (1.7-2.2) mg/dL Total Bilirubin (0.2-1.3) mg/dL Direct Bilirubin (0.0-0.4) mg/dL AST (14-36) U/L ALT (7-56) U/L Alkaline Phosphatase (38-126) U/L Total Protein (5.8-8.3) g/dL Albumin (3.0-4.8) g/dL Globulin gm/dL Albumin/Globulin Ratio (1.1-1.8) Blood Type Antibody Screen Crossmatch BBK History Checked Laboratory Results - last 24 hr 06/08/18 06/08/18 06/08/18 07:17 11:54 12:30 WBC RBC Hgb Hct MCV MCH MCHC RDW Plt Count MPV Neut % (Auto) Lymph % (Auto) [place] % (Auto) Eos % (Auto) Baso % (Auto) Lymph # (Auto) [place] # (Auto) Eos # (Auto) Baso # (Auto) Absolute Neuts (auto) Corrected WBC (Man) Neutrophils % (Manual) Band Neutrophils % Lymphocytes % (Manual) Monocytes % (Manual) Metamyelocytes % Nucleated RBC % Platelet Evaluation Poikilocytosis (manual Anisocytosis (manual) Hema Cells Acanthocytes (Spur) Schistocytes PT INR APTT pCO2 pO2 HCO3 ABG pH ABG Total CO2 ABG O2 Saturation ABG O2 Content ABG Base Excess ABG Hemoglobin ABG Carboxyhemoglobin POC ABG HHb (Measured) ABG Methemoglobin ABG O2 Capacity Hgb O2 Saturation FiO2 Crit Value Called To Crit Value Called By Blood Gas Notified Time Sodium Potassium Chloride Carbon Dioxide Anion Gap BUN Creatinine Est GFR ( Amer) Est GFR (Non-Af Amer) POC Glucose (mg/dL) 145 H 89 Random Glucose Calcium Phosphorus Magnesium Total Bilirubin Direct Bilirubin AST ALT Alkaline Phosphatase Total Protein Albumin Globulin Albumin/Globulin Ratio Blood Type B POSITIVE Antibody Screen Negative Crossmatch See Detail BBK History Checked Patient has bt 06/08/18 06/08/18 06/08/18 13:35 14:00 14:00 WBC 22.3 H RBC 2.75 L Hgb 7.4 L Hct 24.8 L MCV 90.2 D MCH 26.9 MCHC 29.8 L RDW 19.8 H Plt Count 187 MPV 9.7 Neut % (Auto) 93.2 H Lymph % (Auto) 5.3 L [place] % (Auto) 1.5 Eos % (Auto) 0.0 L Baso % (Auto) 0.0 Lymph # (Auto) 1.2 [place] # (Auto) 0.3 Eos # (Auto) 0.0 Baso # (Auto) 0.01 Absolute Neuts (auto) 20.80 H Corrected WBC (Man) Neutrophils % (Manual) Band Neutrophils % Lymphocytes % (Manual) Monocytes % (Manual) Metamyelocytes % Nucleated RBC % Platelet Evaluation Poikilocytosis (manual Anisocytosis (manual) [place] Cells Acanthocytes (Spur) Schistocytes PT INR APTT pCO2 28 L pO2 78.0 L HCO3 5.1 L* ABG pH 6.87 L* ABG Total CO2 6.0 L ABG O2 Saturation 95.2 ABG O2 Content 8.5 L ABG Base Excess -26.1 L ABG Hemoglobin 6.5 L ABG Carboxyhemoglobin 2.9 H POC ABG HHb (Measured) 4.6 ABG Methemoglobin 1.7 ABG O2 Capacity 8.9 L Hgb O2 Saturation 90.9 L FiO2 100.0 Crit Value Called To catherine Cerna Crit Value Called By katie Barbosa Blood Gas Notified Time 1349 Sodium 145 Potassium 5.9 H* Chloride 115 H Carbon Dioxide 11 L Anion Gap 24 H BUN 88 H Creatinine 3.1 H Est GFR ( Amer) 18 Est GFR (Non-Af Amer) 15 POC Glucose (mg/dL) Random Glucose 178 H Calcium 7.9 L Phosphorus Magnesium Total Bilirubin 5.8 H Direct Bilirubin 5.4 H AST 334 H D ALT 73 H Alkaline Phosphatase 78 Total Protein 5.2 L Albumin 2.2 L Globulin 3.0 Albumin/Globulin Ratio 0.7 L Blood Type Antibody Screen Crossmatch BBK History Checked 06/08/18 06/08/18 06/08/18 16:25 21:18 21:31 WBC 29.7 H* D RBC 2.77 L Hgb 7.4 L Hct 25.1 L MCV 90.6 MCH 26.7 MCHC 29.5 L RDW 20.1 H Plt Count 172 MPV 9.7 Neut % (Auto) Lymph % (Auto) [place] % (Auto) Eos % (Auto) Baso % (Auto) Lymph # (Auto) [place] # (Auto) Eos # (Auto) Baso # (Auto) Absolute Neuts (auto) Corrected WBC (Man) Neutrophils % (Manual) Band Neutrophils % Lymphocytes % (Manual) Monocytes % (Manual) Metamyelocytes % Nucleated RBC % Platelet Evaluation Poikilocytosis (manual Anisocytosis (manual) [place] Cells Acanthocytes (Spur) Schistocytes PT INR APTT pCO2 pO2 HCO3 ABG pH ABG Total CO2 ABG O2 Saturation ABG O2 Content ABG Base Excess ABG Hemoglobin ABG Carboxyhemoglobin POC ABG HHb (Measured) ABG Methemoglobin ABG O2 Capacity Hgb O2 Saturation FiO2 Crit Value Called To Crit Value Called By Blood Gas Notified Time Sodium Potassium Chloride Carbon Dioxide Anion Gap BUN Creatinine Est GFR ( Amer) Est GFR (Non-Af Amer) POC Glucose (mg/dL) 152 H 168 H Random Glucose Calcium Phosphorus Magnesium Total Bilirubin Direct Bilirubin AST ALT Alkaline Phosphatase Total Protein Albumin Globulin Albumin/Globulin Ratio Blood Type Antibody Screen Crossmatch BBK History Checked 06/08/18 06/08/18 06/09/18 21:31 22:55 05:00 WBC RBC Hgb Hct MCV MCH MCHC RDW Plt Count MPV Neut % (Auto) Lymph % (Auto) [place] % (Auto) Eos % (Auto) Baso % (Auto) Lymph # (Auto) [place] # (Auto) Eos # (Auto) Baso # (Auto) Absolute Neuts (auto) Corrected WBC (Man) Neutrophils % (Manual) Band Neutrophils % Lymphocytes % (Manual) Monocytes % (Manual) Metamyelocytes % Nucleated RBC % Platelet Evaluation Poikilocytosis (manual Anisocytosis (manual) [place] Cells Acanthocytes (Spur) Schistocytes PT 39.6 H INR 3.57 H* APTT 54.5 H pCO2 45 pO2 56.0 L HCO3 9.7 L* ABG pH 6.94 L* ABG Total CO2 11.1 L ABG O2 Saturation 88.3 L ABG O2 Content 8.7 L ABG Base Excess -21.0 L ABG Hemoglobin 7.3 L ABG Carboxyhemoglobin 3.4 H POC ABG HHb (Measured) 11.1 H ABG Methemoglobin 1.5 ABG O2 Capacity 9.9 L Hgb O2 Saturation 84.1 L FiO2 100.0 Crit Value Called To Brian encnias Crit Value Called By [facility] Blood Gas Notified Time 514 Sodium 144 Potassium 5.2 H Chloride 115 H Carbon Dioxide 11 L Anion Gap 24 H BUN 91 H Creatinine 3.1 H Est GFR ( Amer) 18 Est GFR (Non-Af Amer) 15 POC Glucose (mg/dL) Random Glucose 151 H Calcium 7.6 L Phosphorus Magnesium Total Bilirubin Direct Bilirubin AST ALT Alkaline Phosphatase Total Protein Albumin Globulin Albumin/Globulin Ratio Blood Type Antibody Screen Crossmatch BBK History Checked 06/09/18 06/09/18 06/09/18 05:30 05:30 05:30 WBC 28.1 H* RBC 2.56 L Hgb 7.0 L Hct 22.8 L MCV 89.1 MCH 27.3 MCHC 30.7 L RDW 19.9 H Plt Count 110 L MPV 9.6 Neut % (Auto) Lymph % (Auto) [place] % (Auto) Eos % (Auto) Baso % (Auto) Lymph # (Auto) [place] # (Auto) Eos # (Auto) Baso # (Auto) Absolute Neuts (auto) Corrected WBC (Man) 26.3 H Neutrophils % (Manual) 95 H Band Neutrophils % 1 Lymphocytes % (Manual) 3 L Monocytes % (Manual) TEST NOT PERFORMED Metamyelocytes % 1 Nucleated RBC % 7 Platelet Evaluation Low Poikilocytosis (manual 1+ Anisocytosis (manual) 1+ Hema Cells 1+ Acanthocytes (Spur) 1+ Schistocytes Slight PT 48.1 H INR 4.26 H* APTT 53.3 H pCO2 pO2 HCO3 ABG pH ABG Total CO2 ABG O2 Saturation ABG O2 Content ABG Base Excess ABG Hemoglobin ABG Carboxyhemoglobin POC ABG HHb (Measured) ABG Methemoglobin ABG O2 Capacity Hgb O2 Saturation FiO2 Crit Value Called To Crit Value Called By Blood Gas Notified Time Sodium 148 Potassium 5.4 H Chloride 114 H Carbon Dioxide 13 L Anion Gap 26 H BUN 91 H Creatinine 3.2 H Est GFR ( Amer) 17 Est GFR (Non-Af Amer) 14 POC Glucose (mg/dL) Random Glucose 106 Calcium 7.2 L Phosphorus 11.6 H Magnesium 3.0 H Total Bilirubin 8.4 H Direct Bilirubin AST 2150 H ALT 291 H Alkaline Phosphatase 90 Total Protein 4.9 L Albumin 2.1 L Globulin 2.8 Albumin/Globulin Ratio 0.8 L Blood Type Antibody Screen Crossmatch BBK History Checked 06/09/18 07:31 WBC RBC Hgb Hct MCV MCH MCHC RDW Plt Count MPV Neut % (Auto) Lymph % (Auto) [place] % (Auto) Eos % (Auto) Baso % (Auto) Lymph # (Auto) [place] # (Auto) Eos # (Auto) Baso # (Auto) Absolute Neuts (auto) Corrected WBC (Man) Neutrophils % (Manual) Band Neutrophils % Lymphocytes % (Manual) Monocytes % (Manual) Metamyelocytes % Nucleated RBC % Platelet Evaluation Poikilocytosis (manual Anisocytosis (manual) Hema Cells Acanthocytes (Spur) Schistocytes PT INR APTT pCO2 pO2 HCO3 ABG pH ABG Total CO2 ABG O2 Saturation ABG O2 Content ABG Base Excess ABG Hemoglobin ABG Carboxyhemoglobin POC ABG HHb (Measured) ABG Methemoglobin ABG O2 Capacity Hgb O2 Saturation FiO2 Crit Value Called To Crit Value Called By Blood Gas Notified Time Sodium Potassium Chloride Carbon Dioxide Anion Gap BUN Creatinine Est GFR ( Amer) Est GFR (Non-Af Amer) POC Glucose (mg/dL) 91 Random Glucose Calcium Phosphorus Magnesium Total Bilirubin Direct Bilirubin AST ALT Alkaline Phosphatase Total Protein Albumin Globulin Albumin/Globulin Ratio Blood Type Antibody Screen Crossmatch BBK History Checked Radiology Impressions: Radiology Impressions Chest X-Ray 06/08/18 05:00 IMPRESSION: Stable multifocal infiltrates primarily affecting right lung. Less pronounced changes identified left lung. Chest X-Ray 06/08/18 11:12 IMPRESSION: The endotracheal and nasogastric tubes are in satisfactory position. There is a right IJ line terminating at the junction of the SVC and right atrium. There is no pneumothorax. Extensive right lower lobe infiltrate and diffuse interstitial infiltrate in both lungs Chest X-Ray 06/09/18 05:00 IMPRESSION: Dense alveolar infiltrate in both upper lobes increased from prior exam. The right lower lobe infiltrate seen previously has improved. Fingerstick Blood Sugar Results: 91 Review of Systems - Review of Systems Systems not reviewed;Unavailable: Altered Mental Status Assessment/Plan - Assessment and Plan (Free Text) Assessment: 67 year old with past medical history of type II diabetes mellitus, HTN, HLD, CAD, atrial fibrillation on coumadin, abdominal hernia, CVA who was intubated for hypoxic respiratory failure 2/2 cardiogenic vs non cardiogenic pulmonary edema and subsequently extubated. POD #6 for incarcerated ventral hernia surgery with small bowel resection and jejunocecal anastamosis for necrotic bowel. Patient with acute change in mental status during hospital course. Patient still non-responsive. 1. ARDS with MODS (PaO2/FiO2 = 56; Acute hepatorenal failure) 2. Septic shock 2/2 PNA vs left 2nd toe osteomyelitis 3. Aspiration PNA 4. Severe HAGMA 5. SBO 2/2 ventral hernia s/p repair reanastamosis 6. Hyperkalemia 7. Chronic A-fib Plan: Neuro - Non-responsive - Pupils not reactive to light - No gag reflex - Will cont to monitor mental status Cardio - Cont Levophed and Vasopressin - Lasix 80 mg once - Hold home anti-hypertensives - Cardio consulted - Maintain MAP > 65 Pulm - CXR shows dense alveolar infiltrates - Worsening PNA likely 2/2 aspiration - Cont mechanical ventilation - Daily CXR and ABG - Maintain O2 sat > 90% GI - Worsening LFT's and INR in setting of MODS - POD7 status post colectomy with jejunocecal anastamosis for necrotic bowel - GI consulted - Surgery consulted - Protonix BID - NPO Renal - BUN/Cr slowly - Poor urine output despite diuresis - Cont to monitor I's and O's - Cont Bicarb gtt - Dialysis indicated due to acidosis and overload, however family is refusing at this time - Nephro following - Maintain euvolemia ID - Left foot wound cx positive for corynebacterium - Merrem for PNA - Zyvox for foot wound - ID consulted - Podiatry following for osteo of 2nd left toe Endo - Humalog 75/25 and sliding scale - Accuchecks - Maintain euglycemia Heme - No AC at this time due to coffee ground emesis - SCDs Patient seen and discussed in detail with Dr. Horowitz. Chris Naylor, DO PGY2 <Maribel Horowitz - Last Filed: 06/09/18 14:11> CCU Objective - Vital Signs / Intake & Output Vital Signs (Last 4 hours): Vital Signs Temp Pulse Resp BP 06/09/18 12:00 99.3 F 89 18 88/35 L Intake and Output (Last 8hrs): Intake & Output 06/08/18 06/09/18 06/09/18 22:59 06:59 14:59 Intake Total 1500 2758 500 Output Total 85 40 1700 Balance 1415 2718 -1200 Intake: IV 1500 2758 500 Left External Jugular 1500 2258 Oral 0 0 Output: Chest Tube Drainage 1700 thoracenthesis 1700 Gastric Amount 0 Stomach 0 Drainage 65 40 Left 30 30 Right 35 10 Urine 20 0 Urethral (Kelley) 20 0 Urine, Voided 0 Other: # Bowel Movements 0 0 - Medications Active Medications: Active Medications Generic Name Dose Route Start Last Admin Trade Name Freq PRN Reason Stop Dose Admin Acetaminophen 650 mg 05/21/18 20:42 05/30/18 01:30 Tylenol 325mg Tab PO 650 mg Q6H PRN Administration Fever >100.4 F Acetylcysteine 4 ml 06/07/18 08:30 06/09/18 07:16 Acetylcysteine 20% IH 4 ml BIDRESP PEYMAN Administration Albuterol/Ipratropium 3 ml 06/02/18 18:21 06/08/18 21:30 Duoneb 3 Mg/0.5 Mg (3 Ml) Ud IH 3 ml Q2H PRN Administration Shortness of Breath Amlodipine Besylate 10 mg 05/22/18 10:00 06/02/18 09:34 Norvasc PO Not Given DAILY [facility] Artificial Tears 0 gm 06/09/18 10:00 06/09/18 09:46 Artificial Tears Opht Oint OU 1 drop QID PEYMAN Administration Aspirin 81 mg 05/28/18 10:00 06/09/18 10:32 Aspirin Chewable PO Not Given DAILY [facility] Atorvastatin Calcium 40 mg 05/23/18 10:00 06/08/18 09:45 Lipitor PO 40 mg QOTHERDAY PEYMAN Administration Clonidine HCl 0.3 mg 05/22/18 10:00 06/03/18 10:50 Catapres PO Not Given TID [facility] Furosemide 40 mg 06/04/18 22:00 06/08/18 09:48 Lasix IVP Not Given Q12 [facility]MAN Hydralazine HCl 25 mg 05/31/18 06:15 06/02/18 05:37 Apresoline PO Not Given Q6H [facility] Hydromorphone HCl 0.5 mg 06/03/18 11:47 06/08/18 02:52 Dilaudid IVP 0.5 mg Q4H PRN Administration Pain, moderate (4-7) Meropenem/Sodium Chloride 500 mg in 50 mls @ 100 mls/hr 06/08/18 11:18 06/09/18 10:04 Merrem Iv 500 Mg/Ns 50 Ml IVPB 06/15/18 11:19 100 mls/hr Q12 PEYMAN Administration Protocol Vasopressin 20 units/ Sodium 101 mls @ 9.09 mls/hr 06/08/18 13:45 06/09/18 09:45 Chloride IV 9.09 mls/hr .[id number] PEYMAN Administration Protocol 0.03 U/MIN Sodium Bicarbonate 150 meq/ 1,150 mls @ 100 mls/hr 06/08/18 14:30 06/09/18 02:03 Dextrose IV 100 mls/hr .[id number] PEYMAN Administration NOREPINEPHRINE BIT/0.9 % NACL 4 mg in 250 mls @ 15 mls/hr 06/08/18 15:53 06/09/18 13:24 Levophed 4 Mg/ 250 Ml Ns Premixed IV 20 mcg/min .[id number] PRN 75 mls/hr TITRATE PER MD ORDER Administration Protocol 4 MCG/MIN Levofloxacin/Dextrose 500 mg in 100 mls @ 100 mls/hr 06/10/18 09:00 Levaquin 500mg IVPB Q48H PEYMAN Protocol Insulin Human Lispro 0 units 05/21/18 22:00 06/09/18 13:34 Humalog High SC Not Given ACHS PEYMAN Protocol Insulin Lispro Protam/Lispro Human 10 units 05/25/18 16:30 06/09/18 08:12 Humalog Mix 75/25 SC Not Given ACBD [facility]YMAN Levalbuterol HCl 1.25 mg 05/26/18 14:00 06/09/18 13:33 Xopenex IH 1.25 mg [id number] PEYMAN Administration Metoprolol Tartrate 50 mg 05/28/18 13:30 05/30/18 01:30 Lopressor PO 50 mg Q12H PEYMAN Administration Ondansetron HCl 4 mg 06/01/18 10:58 Zofran Inj IVP Q6H PRN Nausea/Vomiting Oxychlorosene Sodium 2 gm 06/02/18 10:00 06/09/18 10:05 Clorpactin Wcs-90 TOP Not Given DAILY [facility] Pantoprazole Sodium 40 mg 06/08/18 13:15 06/09/18 02:05 Protonix Inj IV 40 mg Q12H PEYMAN Administration Simethicone 80 mg 05/30/18 04:02 05/31/18 09:48 Mylicon Chew Tab PO 80 mg PCHS PRN Administration GI distress - Patient Studies Lab Studies: Microbiology Studies 06/07/18 10:40 Blood Culture - Preliminary Blood-Venous NO GROWTH AFTER 48 HOURS 06/07/18 10:15 Blood Culture - Preliminary Blood-Venous NO GROWTH AFTER 48 HOURS 06/07/18 20:30 Urine Culture - Final Urine,Catheterized Yeast Species Lab Studies 06/09/18 06/09/18 06/09/18 Range/Units 10:58 07:31 05:30 WBC (4.5-11.0) 10^3/uL RBC (3.5-6.1) 10^6/uL Hgb (12.0-16.0) g/dL Hct (36.0-48.0) % MCV (80.0-105.0) fl MCH (25.0-35.0) pg MCHC (31.0-37.0) g/dl RDW (11.5-14.5) % Plt Count (120.0-450.0) 10^3/uL MPV (7.0-11.0) fl Neut % (Auto) (50.0-68.0) % Lymph % (Auto) (22.0-35.0) % [place] % (Auto) (1.0-6.0) % Eos % (Auto) (1.5-5.0) % Baso % (Auto) (0.0-3.0) % Lymph # (Auto) (1.2-3.4) [place] # (Auto) (0.1-0.6) Eos # (Auto) (0.0-0.7) Baso # (Auto) (0.0-2.0) K/mm3 Absolute Neuts (auto) (1.4-6.5) Corrected WBC (Man) (4.5-11.0) K/mm3 Neutrophils % (Manual) (50.0-70.0) % Band Neutrophils % (0-2) % Lymphocytes % (Manual) (22.0-35.0) % Monocytes % (Manual) Metamyelocytes % % Nucleated RBC % % Platelet Evaluation (NORMAL) Poikilocytosis (manual Anisocytosis (manual) Hema Cells Acanthocytes (Spur) Schistocytes PT 48.1 H (9.4-12.5) SECONDS INR 4.26 H* APTT 53.3 H (26.9-38.3) Seconds pCO2 (35-45) mm/Hg pO2 (80-100) mm/Hg HCO3 (21-28) mmol/L ABG pH (7.35-7.45) ABG Total CO2 (22-28) mmol.L ABG O2 Saturation (95-98) % ABG O2 Content (15-23) ML/dl ABG Base Excess (-2.0-3.0) mmol/L ABG Hemoglobin (11.7-17.4) g/dL ABG Carboxyhemoglobin (0.5-1.5) % POC ABG HHb (Measured) (0-5) % ABG Methemoglobin (0.0-3.0) % ABG O2 Capacity (16-24) mL/dl Hgb O2 Saturation (95.0-98.0) % FiO2 % Crit Value Called To Crit Value Called By Blood Gas Notified Time Sodium (132-148) mmol/L Potassium (3.6-5.0) mmol/L Chloride (98-107) mmol/L Carbon Dioxide (21-33) mmol/L Anion Gap (10-20) BUN (7-21) mg/dL Creatinine (0.7-1.2) mg/dl Est GFR ( Amer) Est GFR (Non-Af Amer) POC Glucose (mg/dL) 72 91 (65-110) mg/dL Random Glucose (70-110) mg/dL Calcium (8.4-10.5) mg/dL Phosphorus (2.5-4.5) mg/dL Magnesium (1.7-2.2) mg/dL Total Bilirubin (0.2-1.3) mg/dL Direct Bilirubin (0.0-0.4) mg/dL AST (14-36) U/L ALT (7-56) U/L Alkaline Phosphatase (38-126) U/L Total Protein (5.8-8.3) g/dL Albumin (3.0-4.8) g/dL Globulin gm/dL Albumin/Globulin Ratio (1.1-1.8) 06/09/18 06/09/18 06/09/18 Range/Units 05:30 05:30 05:00 WBC 28.1 H* (4.5-11.0) 10^3/uL RBC 2.56 L (3.5-6.1) 10^6/uL Hgb 7.0 L (12.0-16.0) g/dL Hct 22.8 L (36.0-48.0) % MCV 89.1 (80.0-105.0) fl MCH 27.3 (25.0-35.0) pg MCHC 30.7 L (31.0-37.0) g/dl RDW 19.9 H (11.5-14.5) % Plt Count 110 L (120.0-450.0) 10^3/uL MPV 9.6 (7.0-11.0) fl Neut % (Auto) (50.0-68.0) % Lymph % (Auto) (22.0-35.0) % [place] % (Auto) (1.0-6.0) % Eos % (Auto) (1.5-5.0) % Baso % (Auto) (0.0-3.0) % Lymph # (Auto) (1.2-3.4) [place] # (Auto) (0.1-0.6) Eos # (Auto) (0.0-0.7) Baso # (Auto) (0.0-2.0) K/mm3 Absolute Neuts (auto) (1.4-6.5) Corrected WBC (Man) 26.3 H (4.5-11.0) K/mm3 Neutrophils % (Manual) 95 H (50.0-70.0) % Band Neutrophils % 1 (0-2) % Lymphocytes % (Manual) 3 L (22.0-35.0) % Monocytes % (Manual) TEST NOT PERFORMED Metamyelocytes % 1 % Nucleated RBC % 7 % Platelet Evaluation Low (NORMAL) Poikilocytosis (manual 1+ Anisocytosis (manual) 1+ Hema Cells 1+ Acanthocytes (Spur) 1+ Schistocytes Slight PT (9.4-12.5) SECONDS INR APTT (26.9-38.3) Seconds pCO2 45 (35-45) mm/Hg pO2 56.0 L (80-100) mm/Hg HCO3 9.7 L* (21-28) mmol/L ABG pH 6.94 L* (7.35-7.45) ABG Total CO2 11.1 L (22-28) mmol.L ABG O2 Saturation 88.3 L (95-98) % ABG O2 Content 8.7 L (15-23) ML/dl ABG Base Excess -21.0 L (-2.0-3.0) mmol/L ABG Hemoglobin 7.3 L (11.7-17.4) g/dL ABG Carboxyhemoglobin 3.4 H (0.5-1.5) % POC ABG HHb (Measured) 11.1 H (0-5) % ABG Methemoglobin 1.5 (0.0-3.0) % ABG O2 Capacity 9.9 L (16-24) mL/dl Hgb O2 Saturation 84.1 L (95.0-98.0) % FiO2 100.0 % Crit Value Called To Kweena rn Crit Value Called By [facility] Blood Gas Notified Time 514 Sodium 148 (132-148) mmol/L Potassium 5.4 H (3.6-5.0) mmol/L Chloride 114 H (98-107) mmol/L Carbon Dioxide 13 L (21-33) mmol/L Anion Gap 26 H (10-20) BUN 91 H (7-21) mg/dL Creatinine 3.2 H (0.7-1.2) mg/dl Est GFR ( Amer) 17 Est GFR (Non-Af Amer) 14 POC Glucose (mg/dL) (65-110) mg/dL Random Glucose 106 (70-110) mg/dL Calcium 7.2 L (8.4-10.5) mg/dL Phosphorus 11.6 H (2.5-4.5) mg/dL Magnesium 3.0 H (1.7-2.2) mg/dL Total Bilirubin 8.4 H (0.2-1.3) mg/dL Direct Bilirubin (0.0-0.4) mg/dL AST 2150 H (14-36) U/L ALT 291 H (7-56) U/L Alkaline Phosphatase 90 (38-126) U/L Total Protein 4.9 L (5.8-8.3) g/dL Albumin 2.1 L (3.0-4.8) g/dL Globulin 2.8 gm/dL Albumin/Globulin Ratio 0.8 L (1.1-1.8) 06/08/18 06/08/18 06/08/18 Range/Units 22:55 21:31 21:31 WBC 29.7 H* D (4.5-11.0) 10^3/uL RBC 2.77 L (3.5-6.1) 10^6/uL Hgb 7.4 L (12.0-16.0) g/dL Hct 25.1 L (36.0-48.0) % MCV 90.6 (80.0-105.0) fl MCH 26.7 (25.0-35.0) pg MCHC 29.5 L (31.0-37.0) g/dl RDW 20.1 H (11.5-14.5) % Plt Count 172 (120.0-450.0) 10^3/uL MPV 9.7 (7.0-11.0) fl Neut % (Auto) (50.0-68.0) % Lymph % (Auto) (22.0-35.0) % [place] % (Auto) (1.0-6.0) % Eos % (Auto) (1.5-5.0) % Baso % (Auto) (0.0-3.0) % Lymph # (Auto) (1.2-3.4) [place] # (Auto) (0.1-0.6) Eos # (Auto) (0.0-0.7) Baso # (Auto) (0.0-2.0) K/mm3 Absolute Neuts (auto) (1.4-6.5) Corrected WBC (Man) (4.5-11.0) K/mm3 Neutrophils % (Manual) (50.0-70.0) % Band Neutrophils % (0-2) % Lymphocytes % (Manual) (22.0-35.0) % Monocytes % (Manual) Metamyelocytes % % Nucleated RBC % % Platelet Evaluation (NORMAL) Poikilocytosis (manual Anisocytosis (manual) Hema Cells Acanthocytes (Spur) Schistocytes PT 39.6 H (9.4-12.5) SECONDS INR 3.57 H* APTT 54.5 H (26.9-38.3) Seconds pCO2 (35-45) mm/Hg pO2 (80-100) mm/Hg HCO3 (21-28) mmol/L ABG pH (7.35-7.45) ABG Total CO2 (22-28) mmol.L ABG O2 Saturation (95-98) % ABG O2 Content (15-23) ML/dl ABG Base Excess (-2.0-3.0) mmol/L ABG Hemoglobin (11.7-17.4) g/dL ABG Carboxyhemoglobin (0.5-1.5) % POC ABG HHb (Measured) (0-5) % ABG Methemoglobin (0.0-3.0) % ABG O2 Capacity (16-24) mL/dl Hgb O2 Saturation (95.0-98.0) % FiO2 % Crit Value Called To Crit Value Called By Blood Gas Notified Time Sodium 144 (132-148) mmol/L Potassium 5.2 H (3.6-5.0) mmol/L Chloride 115 H (98-107) mmol/L Carbon Dioxide 11 L (21-33) mmol/L Anion Gap 24 H (10-20) BUN 91 H (7-21) mg/dL Creatinine 3.1 H (0.7-1.2) mg/dl Est GFR ( Amer) 18 Est GFR (Non-Af Amer) 15 POC Glucose (mg/dL) (65-110) mg/dL Random Glucose 151 H (70-110) mg/dL Calcium 7.6 L (8.4-10.5) mg/dL Phosphorus (2.5-4.5) mg/dL Magnesium (1.7-2.2) mg/dL Total Bilirubin (0.2-1.3) mg/dL Direct Bilirubin (0.0-0.4) mg/dL AST (14-36) U/L ALT (7-56) U/L Alkaline Phosphatase (38-126) U/L Total Protein (5.8-8.3) g/dL Albumin (3.0-4.8) g/dL Globulin gm/dL Albumin/Globulin Ratio (1.1-1.8) 06/08/18 06/08/18 06/08/18 Range/Units 21:18 16:25 14:00 WBC (4.5-11.0) 10^3/uL RBC (3.5-6.1) 10^6/uL Hgb (12.0-16.0) g/dL Hct (36.0-48.0) % MCV (80.0-105.0) fl MCH (25.0-35.0) pg MCHC (31.0-37.0) g/dl RDW (11.5-14.5) % Plt Count (120.0-450.0) 10^3/uL MPV (7.0-11.0) fl Neut % (Auto) (50.0-68.0) % Lymph % (Auto) (22.0-35.0) % [place] % (Auto) (1.0-6.0) % Eos % (Auto) (1.5-5.0) % Baso % (Auto) (0.0-3.0) % Lymph # (Auto) (1.2-3.4) [place] # (Auto) (0.1-0.6) Eos # (Auto) (0.0-0.7) Baso # (Auto) (0.0-2.0) K/mm3 Absolute Neuts (auto) (1.4-6.5) Corrected WBC (Man) (4.5-11.0) K/mm3 Neutrophils % (Manual) (50.0-70.0) % Band Neutrophils % (0-2) % Lymphocytes % (Manual) (22.0-35.0) % Monocytes % (Manual) Metamyelocytes % % Nucleated RBC % % Platelet Evaluation (NORMAL) Poikilocytosis (manual Anisocytosis (manual) [place] Cells Acanthocytes (Spur) Schistocytes PT (9.4-12.5) SECONDS INR APTT (26.9-38.3) Seconds pCO2 (35-45) mm/Hg pO2 (80-100) mm/Hg HCO3 (21-28) mmol/L ABG pH (7.35-7.45) ABG Total CO2 (22-28) mmol.L ABG O2 Saturation (95-98) % ABG O2 Content (15-23) ML/dl ABG Base Excess (-2.0-3.0) mmol/L ABG Hemoglobin (11.7-17.4) g/dL ABG Carboxyhemoglobin (0.5-1.5) % POC ABG HHb (Measured) (0-5) % ABG Methemoglobin (0.0-3.0) % ABG O2 Capacity (16-24) mL/dl Hgb O2 Saturation (95.0-98.0) % FiO2 % Crit Value Called To Crit Value Called By Blood Gas Notified Time Sodium 145 (132-148) mmol/L Potassium 5.9 H* (3.6-5.0) mmol/L Chloride 115 H (98-107) mmol/L Carbon Dioxide 11 L (21-33) mmol/L Anion Gap 24 H (10-20) BUN 88 H (7-21) mg/dL Creatinine 3.1 H (0.7-1.2) mg/dl Est GFR ( Amer) 18 Est GFR (Non-Af Amer) 15 POC Glucose (mg/dL) 168 H 152 H (65-110) mg/dL Random Glucose 178 H (70-110) mg/dL Calcium 7.9 L (8.4-10.5) mg/dL Phosphorus (2.5-4.5) mg/dL Magnesium (1.7-2.2) mg/dL Total Bilirubin 5.8 H (0.2-1.3) mg/dL Direct Bilirubin 5.4 H (0.0-0.4) mg/dL AST 334 H D (14-36) U/L ALT 73 H (7-56) U/L Alkaline Phosphatase 78 (38-126) U/L Total Protein 5.2 L (5.8-8.3) g/dL Albumin 2.2 L (3.0-4.8) g/dL Globulin 3.0 gm/dL Albumin/Globulin Ratio 0.7 L (1.1-1.8) 06/08/18 06/08/18 Range/Units 14:00 11:54 WBC 22.3 H (4.5-11.0) 10^3/uL RBC 2.75 L (3.5-6.1) 10^6/uL Hgb 7.4 L (12.0-16.0) g/dL Hct 24.8 L (36.0-48.0) % MCV 90.2 D (80.0-105.0) fl MCH 26.9 (25.0-35.0) pg MCHC 29.8 L (31.0-37.0) g/dl RDW 19.8 H (11.5-14.5) % Plt Count 187 (120.0-450.0) 10^3/uL MPV 9.7 (7.0-11.0) fl Neut % (Auto) 93.2 H (50.0-68.0) % Lymph % (Auto) 5.3 L (22.0-35.0) % [place] % (Auto) 1.5 (1.0-6.0) % Eos % (Auto) 0.0 L (1.5-5.0) % Baso % (Auto) 0.0 (0.0-3.0) % Lymph # (Auto) 1.2 (1.2-3.4) [place] # (Auto) 0.3 (0.1-0.6) Eos # (Auto) 0.0 (0.0-0.7) Baso # (Auto) 0.01 (0.0-2.0) K/mm3 Absolute Neuts (auto) 20.80 H (1.4-6.5) Corrected WBC (Man) (4.5-11.0) K/mm3 Neutrophils % (Manual) (50.0-70.0) % Band Neutrophils % (0-2) % Lymphocytes % (Manual) (22.0-35.0) % Monocytes % (Manual) Metamyelocytes % % Nucleated RBC % % Platelet Evaluation (NORMAL) Poikilocytosis (manual Anisocytosis (manual) Hema Cells Acanthocytes (Spur) Schistocytes PT (9.4-12.5) SECONDS INR APTT (26.9-38.3) Seconds pCO2 (35-45) mm/Hg pO2 (80-100) mm/Hg HCO3 (21-28) mmol/L ABG pH (7.35-7.45) ABG Total CO2 (22-28) mmol.L ABG O2 Saturation (95-98) % ABG O2 Content (15-23) ML/dl ABG Base Excess (-2.0-3.0) mmol/L ABG Hemoglobin (11.7-17.4) g/dL ABG Carboxyhemoglobin (0.5-1.5) % POC ABG HHb (Measured) (0-5) % ABG Methemoglobin (0.0-3.0) % ABG O2 Capacity (16-24) mL/dl Hgb O2 Saturation (95.0-98.0) % FiO2 % Crit Value Called To Crit Value Called By Blood Gas Notified Time Sodium (132-148) mmol/L Potassium (3.6-5.0) mmol/L Chloride (98-107) mmol/L Carbon Dioxide (21-33) mmol/L Anion Gap (10-20) BUN (7-21) mg/dL Creatinine (0.7-1.2) mg/dl Est GFR ( Amer) Est GFR (Non-Af Amer) POC Glucose (mg/dL) 89 (65-110) mg/dL Random Glucose (70-110) mg/dL Calcium (8.4-10.5) mg/dL Phosphorus (2.5-4.5) mg/dL Magnesium (1.7-2.2) mg/dL Total Bilirubin (0.2-1.3) mg/dL Direct Bilirubin (0.0-0.4) mg/dL AST (14-36) U/L ALT (7-56) U/L Alkaline Phosphatase (38-126) U/L Total Protein (5.8-8.3) g/dL Albumin (3.0-4.8) g/dL Globulin gm/dL Albumin/Globulin Ratio (1.1-1.8) Laboratory Results - last 24 hr 06/08/18 06/08/18 06/08/18 11:54 14:00 14:00 WBC 22.3 H RBC 2.75 L Hgb 7.4 L Hct 24.8 L MCV 90.2 D MCH 26.9 MCHC 29.8 L RDW 19.8 H Plt Count 187 MPV 9.7 Neut % (Auto) 93.2 H Lymph % (Auto) 5.3 L [place] % (Auto) 1.5 Eos % (Auto) 0.0 L Baso % (Auto) 0.0 Lymph # (Auto) 1.2 [place] # (Auto) 0.3 Eos # (Auto) 0.0 Baso # (Auto) 0.01 Absolute Neuts (auto) 20.80 H Corrected WBC (Man) Neutrophils % (Manual) Band Neutrophils % Lymphocytes % (Manual) Monocytes % (Manual) Metamyelocytes % Nucleated RBC % Platelet Evaluation Poikilocytosis (manual Anisocytosis (manual) Hema Cells Acanthocytes (Spur) Schistocytes PT INR APTT pCO2 pO2 HCO3 ABG pH ABG Total CO2 ABG O2 Saturation ABG O2 Content ABG Base Excess ABG Hemoglobin ABG Carboxyhemoglobin POC ABG HHb (Measured) ABG Methemoglobin ABG O2 Capacity Hgb O2 Saturation FiO2 Crit Value Called To Crit Value Called By Blood Gas Notified Time Sodium 145 Potassium 5.9 H* Chloride 115 H Carbon Dioxide 11 L Anion Gap 24 H BUN 88 H Creatinine 3.1 H Est GFR ( Amer) 18 Est GFR (Non-Af Amer) 15 POC Glucose (mg/dL) 89 Random Glucose 178 H Calcium 7.9 L Phosphorus Magnesium Total Bilirubin 5.8 H Direct Bilirubin 5.4 H AST 334 H D ALT 73 H Alkaline Phosphatase 78 Total Protein 5.2 L Albumin 2.2 L Globulin 3.0 Albumin/Globulin Ratio 0.7 L 06/08/18 06/08/18 06/08/18 16:25 21:18 21:31 WBC 29.7 H* D RBC 2.77 L Hgb 7.4 L Hct 25.1 L MCV 90.6 MCH 26.7 MCHC 29.5 L RDW 20.1 H Plt Count 172 MPV 9.7 Neut % (Auto) Lymph % (Auto) [place] % (Auto) Eos % (Auto) Baso % (Auto) Lymph # (Auto) [place] # (Auto) Eos # (Auto) Baso # (Auto) Absolute Neuts (auto) Corrected WBC (Man) Neutrophils % (Manual) Band Neutrophils % Lymphocytes % (Manual) Monocytes % (Manual) Metamyelocytes % Nucleated RBC % Platelet Evaluation Poikilocytosis (manual Anisocytosis (manual) [place] Cells Acanthocytes (Spur) Schistocytes PT INR APTT pCO2 pO2 HCO3 ABG pH ABG Total CO2 ABG O2 Saturation ABG O2 Content ABG Base Excess ABG Hemoglobin ABG Carboxyhemoglobin POC ABG HHb (Measured) ABG Methemoglobin ABG O2 Capacity Hgb O2 Saturation FiO2 Crit Value Called To Crit Value Called By Blood Gas Notified Time Sodium Potassium Chloride Carbon Dioxide Anion Gap BUN Creatinine Est GFR ( Amer) Est GFR (Non-Af Amer) POC Glucose (mg/dL) 152 H 168 H Random Glucose Calcium Phosphorus Magnesium Total Bilirubin Direct Bilirubin AST ALT Alkaline Phosphatase Total Protein Albumin Globulin Albumin/Globulin Ratio 06/08/18 06/08/18 06/09/18 21:31 22:55 05:00 WBC RBC Hgb Hct MCV MCH MCHC RDW Plt Count MPV Neut % (Auto) Lymph % (Auto) [place] % (Auto) Eos % (Auto) Baso % (Auto) Lymph # (Auto) [place] # (Auto) Eos # (Auto) Baso # (Auto) Absolute Neuts (auto) Corrected WBC (Man) Neutrophils % (Manual) Band Neutrophils % Lymphocytes % (Manual) Monocytes % (Manual) Metamyelocytes % Nucleated RBC % Platelet Evaluation Poikilocytosis (manual Anisocytosis (manual) [place] Cells Acanthocytes (Spur) Schistocytes PT 39.6 H INR 3.57 H* APTT 54.5 H pCO2 45 pO2 56.0 L HCO3 9.7 L* ABG pH 6.94 L* ABG Total CO2 11.1 L ABG O2 Saturation 88.3 L ABG O2 Content 8.7 L ABG Base Excess -21.0 L ABG Hemoglobin 7.3 L ABG Carboxyhemoglobin 3.4 H POC ABG HHb (Measured) 11.1 H ABG Methemoglobin 1.5 ABG O2 Capacity 9.9 L Hgb O2 Saturation 84.1 L FiO2 100.0 Crit Value Called To Brian encinas Crit Value Called By [facility] Blood Gas Notified Time 514 Sodium 144 Potassium 5.2 H Chloride 115 H Carbon Dioxide 11 L Anion Gap 24 H BUN 91 H Creatinine 3.1 H Est GFR ( Amer) 18 Est GFR (Non-Af Amer) 15 POC Glucose (mg/dL) Random Glucose 151 H Calcium 7.6 L Phosphorus Magnesium Total Bilirubin Direct Bilirubin AST ALT Alkaline Phosphatase Total Protein Albumin Globulin Albumin/Globulin Ratio 06/09/18 06/09/18 06/09/18 05:30 05:30 05:30 WBC 28.1 H* RBC 2.56 L Hgb 7.0 L Hct 22.8 L MCV 89.1 MCH 27.3 MCHC 30.7 L RDW 19.9 H Plt Count 110 L MPV 9.6 Neut % (Auto) Lymph % (Auto) [place] % (Auto) Eos % (Auto) Baso % (Auto) Lymph # (Auto) [place] # (Auto) Eos # (Auto) Baso # (Auto) Absolute Neuts (auto) Corrected WBC (Man) 26.3 H Neutrophils % (Manual) 95 H Band Neutrophils % 1 Lymphocytes % (Manual) 3 L Monocytes % (Manual) TEST NOT PERFORMED Metamyelocytes % 1 Nucleated RBC % 7 Platelet Evaluation Low Poikilocytosis (manual 1+ Anisocytosis (manual) 1+ Hema Cells 1+ Acanthocytes (Spur) 1+ Schistocytes Slight PT 48.1 H INR 4.26 H* APTT 53.3 H pCO2 pO2 HCO3 ABG pH ABG Total CO2 ABG O2 Saturation ABG O2 Content ABG Base Excess ABG Hemoglobin ABG Carboxyhemoglobin POC ABG HHb (Measured) ABG Methemoglobin ABG O2 Capacity Hgb O2 Saturation FiO2 Crit Value Called To Crit Value Called By Blood Gas Notified Time Sodium 148 Potassium 5.4 H Chloride 114 H Carbon Dioxide 13 L Anion Gap 26 H BUN 91 H Creatinine 3.2 H Est GFR ( Amer) 17 Est GFR (Non-Af Amer) 14 POC Glucose (mg/dL) Random Glucose 106 Calcium 7.2 L Phosphorus 11.6 H Magnesium 3.0 H Total Bilirubin 8.4 H Direct Bilirubin AST 2150 H ALT 291 H Alkaline Phosphatase 90 Total Protein 4.9 L Albumin 2.1 L Globulin 2.8 Albumin/Globulin Ratio 0.8 L 06/09/18 06/09/18 07:31 10:58 WBC RBC Hgb Hct MCV MCH MCHC RDW Plt Count MPV Neut % (Auto) Lymph % (Auto) [place] % (Auto) Eos % (Auto) Baso % (Auto) Lymph # (Auto) [place] # (Auto) Eos # (Auto) Baso # (Auto) Absolute Neuts (auto) Corrected WBC (Man) Neutrophils % (Manual) Band Neutrophils % Lymphocytes % (Manual) Monocytes % (Manual) Metamyelocytes % Nucleated RBC % Platelet Evaluation Poikilocytosis (manual Anisocytosis (manual) [place] Cells Acanthocytes (Spur) Schistocytes PT INR APTT pCO2 pO2 HCO3 ABG pH ABG Total CO2 ABG O2 Saturation ABG O2 Content ABG Base Excess ABG Hemoglobin ABG Carboxyhemoglobin POC ABG HHb (Measured) ABG Methemoglobin ABG O2 Capacity Hgb O2 Saturation FiO2 Crit Value Called To Crit Value Called By Blood Gas Notified Time Sodium Potassium Chloride Carbon Dioxide Anion Gap BUN Creatinine Est GFR ( Amer) Est GFR (Non-Af Amer) POC Glucose (mg/dL) 91 72 Random Glucose Calcium Phosphorus Magnesium Total Bilirubin Direct Bilirubin AST ALT Alkaline Phosphatase Total Protein Albumin Globulin Albumin/Globulin Ratio Radiology Impressions: Radiology Impressions Chest X-Ray 06/09/18 05:00 IMPRESSION: Dense alveolar infiltrate in both upper lobes increased from prior exam. The right lower lobe infiltrate seen previously has improved. Addendum Addendum: 06/09/18 14:01 ICU Attending Addendum Patient seen and examined. Case reviewed on round with housestaff. 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 She remains in multiorgan failure shock with persistent metabolic acidosis. intubated 06/08 inserted left IJ TLC 06/08 on levophed and fixed vasopressin severe metabolic acidosis likely from renal failure and shock - resistant to 4 amps bicarb and drip son refusing dialysis hyperK - resolved for now HB drop, concern for bleed HOLDING anticoag, anitplat hypoxic resp failre now intubated on 100% fio2 and 12 of peep CXR suggest ARDS type picture like compunded with inability to unload volume cont low vT ventilation holding off on paralytic because her pH is 6.8 and there is very little room for her to tolerate the persmissive hypercapnea that goes along with paralytic induction cont abx, i suspect she aspirated given larg amount of black coffee ground emesis around her vocal cords when I intubated her GI notified - cont PPI I continued my conversation with her son this morning and informed him that she has not made any improvements I exaplined HD would be an option but it would come with high risks as well given her shock and it may not change the outcome at this point he understands the severity of her condition and wishes to not do any more interventions on her. He has requested us not to perform CPR and if extubated, not to reintubate *CODE STATUS now DNR/DNI I Answered all his questions. He is aware that she may pass at any moment. I informed PMD Dr lee regarding her status and DNR DNI Rest of care as above in housestaff note Maribel Horowitz MD Pulmonary Critical Care Attending Critical Care Time: 45 mins
--- NOTE | 2018-06-09 12:10 | CP.PCM.PN ---
Subjective - Date & Time of Evaluation Date of Evaluation: 06/09/18 Time of Evaluation: 08:30 - Subjective Subjective: Patient continues to be on the ventilator, still in some respiratory distress, no fevers overnight but patient is having bouts of hypothermia. Objective - Vital Signs/Intake and Output Vital Signs (last 24 hours): Temp Pulse Resp BP Pulse Ox 98.6 F 71 20 76/33 L 87 L 06/08/18 04:00 06/08/18 10:46 06/08/18 11:20 06/08/18 10:46 06/08/18 11:20 Intake and Output: 06/08/18 06/08/18 06:59 18:59 Intake Total 600 Output Total 225 Balance 375 - Medications Medications: Current Medications Acetaminophen (Tylenol 325mg Tab) 650 mg PO Q6H PRN PRN Reason: Fever >100.4 F Last Admin: 05/30/18 01:30 Dose: 650 mg Acetylcysteine (Acetylcysteine 20%) 4 ml IH BIDRESP [facility] Last Admin: 06/08/18 08:13 Dose: 4 ml Albuterol/Ipratropium (Duoneb 3 Mg/0.5 Mg (3 Ml) Ud) 3 ml IH Q2H PRN PRN Reason: Shortness of Breath Amlodipine Besylate (Norvasc) 10 mg PO DAILY [facility] Last Admin: 06/02/18 09:34 Dose: Not Given Aspirin (Aspirin Chewable) 81 mg PO DAILY [facility] Last Admin: 06/08/18 09:45 Dose: 81 mg Atorvastatin Calcium (Lipitor) 40 mg PO QOTHERDAY [facility] Last Admin: 06/08/18 09:45 Dose: 40 mg Clonidine HCl (Catapres) 0.3 mg PO TID [facility] Last Admin: 06/03/18 10:50 Dose: Not Given Furosemide (Lasix) 40 mg IVP Q12 [facility] Last Admin: 06/08/18 09:48 Dose: Not Given Heparin Sodium (Porcine) (Heparin) 5,000 units SC Q8 [facility]; Protocol Last Admin: 06/08/18 05:49 Dose: 5,000 units Hydralazine HCl (Apresoline) 25 mg PO Q6H [facility] Last Admin: 06/02/18 05:37 Dose: Not Given Hydromorphone HCl (Dilaudid) 0.5 mg IVP Q4H PRN PRN Reason: Pain, moderate (4-7) Last Admin: 06/08/18 02:52 Dose: 0.5 mg Heparin Sodium/Sodium Chloride (Heparin 10557 Units/250ml 1/2 Normal Saline) 25,000 units in 250 mls @ 16.248 mls/hr IV .[id number] PRN; Protocol PRN Reason: ADJUST RATE PER PROTOCOL Last Titration: 05/31/18 10:20 Dose: 0 units/kg/hr, 0 mls/hr Linezolid (Zyvox 600mg/300ml D5w) 600 mg in 300 mls @ 200 mls/hr IVPB Q12 [facility]; Protocol Stop: 06/08/18 13:31 Last Admin: 06/08/18 09:46 Dose: 200 mls/hr Midazolam 100 mg/100ml in NS (Midazolam 100 Mg/100ml In Ns) 100 mg in 100 mls @ 4 mls/hr IV .Q24H PRN; Protocol PRN Reason: Agitation Meropenem/Sodium Chloride (Merrem Iv 500 Mg/Ns 50 Ml) 500 mg in 50 mls @ 100 mls/hr IVPB Q12 [facility]; Protocol Stop: 06/15/18 11:19 Last Admin: 06/08/18 12:15 Dose: 100 mls/hr Insulin Human Lispro (Humalog High) 0 units SC ACHS [facility]; Protocol Last Admin: 06/08/18 12:05 Dose: Not Given Insulin Lispro Protam/Lispro Human (Humalog Mix 75/25) 10 units SC ACBD [facility] Last Admin: 06/08/18 07:52 Dose: Not Given Levalbuterol HCl (Xopenex) 1.25 mg IH [id number] [facility] Last Admin: 06/08/18 08:13 Dose: 1.25 mg Metoprolol Tartrate (Lopressor) 50 mg PO Q12H [facility] Last Admin: 05/30/18 01:30 Dose: 50 mg Ondansetron HCl (Zofran Inj) 4 mg IVP Q6H PRN PRN Reason: Nausea/Vomiting Oxychlorosene Sodium (Clorpactin Wcs-90) 2 gm TOP DAILY [facility] Last Admin: 06/07/18 13:10 Dose: 2 gm Pantoprazole Sodium (Protonix Inj) 40 mg IV Q12H [facility] Simethicone (Mylicon Chew Tab) 80 mg PO HS PRN PRN Reason: GI distress Last Admin: 05/31/18 09:48 Dose: 80 mg - Labs Labs: 06/08/18 06:30 06/08/18 06:30 PT 23.6 SECONDS (9.4-12.5) H 06/02/18 10:05 INR 2.09 06/02/18 10:05 APTT 34.5 Seconds (26.9-38.3) 06/02/18 10:05 - Constitutional Appears: Chronically Ill, Other (intubated, poorly responsive, in some distress) - ENT Exam Additional comments: ET tube in place - Neck Exam Additional comments: left IJ TLC in place - Respiratory Exam Respiratory Exam: Decreased Breath Sounds - Cardiovascular Exam Cardiovascular Exam: +S1, +S2 - GI/Abdominal Exam GI & Abdominal Exam: Soft. 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 Horowitz yesterday after the patient was intubated, found to have coffee-ground material upon intubation of the airway - probable aspiration pneumonia - as discussed with Dr. Horowitz, since the patient is already intubated, we will continue Merrem day 2 despite having penicillin allergy; will hold Zyvox since patient is now having thrombocytopenia, which is multifactorial and give a loading dose of IV Vancomycin; will continue Levaquin day 2 and will follow up final culture results overall prognosis is getting worse discussed with son at bedside about the adjustments in antibiotics, poor prognosis of the patient - Pam Ortega has talked to the son will continue to monitor clinically
--- NOTE | 2018-06-09 14:11 | CP.PCM.PN ---
<Cecy Iraheta - Last Filed: 06/09/18 14:06> Subjective - Date & Time of Evaluation Date of Evaluation: 06/09/18 Time of Evaluation: 14:07 - Subjective Subjective: Podiatry progress not for Dr. Kim 67 y.o male patient seen and evaluated at bedside in the ICU. Patient continues to be on the ventilator and is not responsive at this time. Objective - Vital Signs/Intake and Output Vital Signs (last 24 hours): Temp Pulse Resp BP Pulse Ox 99.3 F 89 18 88/35 L 90 L 06/09/18 12:00 06/09/18 12:00 06/09/18 12:00 06/09/18 12:00 06/09/18 08:01 Intake and Output: 06/09/18 06/09/18 06:59 18:59 Intake Total 2758 500 Output Total 40 1700 Balance 2718 -1200 - Medications Medications: Current Medications Acetaminophen (Tylenol 325mg Tab) 650 mg PO Q6H PRN PRN Reason: Fever >100.4 F Last Admin: 05/30/18 01:30 Dose: 650 mg Acetylcysteine (Acetylcysteine 20%) 4 ml IH BIDRESP [facility] Last Admin: 06/09/18 07:16 Dose: 4 ml Albuterol/Ipratropium (Duoneb 3 Mg/0.5 Mg (3 Ml) Ud) 3 ml IH Q2H PRN PRN Reason: Shortness of Breath Last Admin: 06/08/18 21:30 Dose: 3 ml Amlodipine Besylate (Norvasc) 10 mg PO DAILY [facility] Last Admin: 06/02/18 09:34 Dose: Not Given Artificial Tears (Artificial Tears Opht Oint) 0 gm OU QID [facility] Last Admin: 06/09/18 09:46 Dose: 1 drop Aspirin (Aspirin Chewable) 81 mg PO DAILY [facility] Last Admin: 06/09/18 10:32 Dose: Not Given Atorvastatin Calcium (Lipitor) 40 mg PO QOTHERDAY [facility] Last Admin: 06/08/18 09:45 Dose: 40 mg Clonidine HCl (Catapres) 0.3 mg PO TID [facility] Last Admin: 06/03/18 10:50 Dose: Not Given Furosemide (Lasix) 40 mg IVP Q12 [facility] Last Admin: 06/08/18 09:48 Dose: Not Given Hydralazine HCl (Apresoline) 25 mg PO Q6H [facility] Last Admin: 06/02/18 05:37 Dose: Not Given Hydromorphone HCl (Dilaudid) 0.5 mg IVP Q4H PRN PRN Reason: Pain, moderate (4-7) Last Admin: 06/08/18 02:52 Dose: 0.5 mg Meropenem/Sodium Chloride (Merrem Iv 500 Mg/Ns 50 Ml) 500 mg in 50 mls @ 100 mls/hr IVPB Q12 [facility]; Protocol Stop: 06/15/18 11:19 Last Admin: 06/09/18 10:04 Dose: 100 mls/hr Vasopressin 20 units/ Sodium (Chloride) 101 mls @ 9.09 mls/hr IV .[id number] [facility]; Protocol Last Admin: 06/09/18 09:45 Dose: 9.09 mls/hr Sodium Bicarbonate 150 meq/ (Dextrose) 1,150 mls @ 100 mls/hr IV .[id number] [facility] Last Admin: 06/09/18 02:03 Dose: 100 mls/hr NOREPINEPHRINE BIT/0.9 % NACL (Levophed 4 Mg/ 250 Ml Ns Premixed) 4 mg in 250 mls @ 15 mls/hr IV .[id number] PRN; Protocol PRN Reason: TITRATE PER MD ORDER Last Admin: 06/09/18 13:24 Dose: 20 mcg/min, 75 mls/hr Levofloxacin/Dextrose (Levaquin 500mg) 500 mg in 100 mls @ 100 mls/hr IVPB Q48H [facility]; Protocol Insulin Human Lispro (Humalog High) 0 units SC ACHS [facility]; Protocol Last Admin: 06/09/18 13:34 Dose: Not Given Insulin Lispro Protam/Lispro Human (Humalog Mix 75/25) 10 units SC ACBD [facility] Last Admin: 06/09/18 08:12 Dose: Not Given Levalbuterol HCl (Xopenex) 1.25 mg IH [id number] [facility] Last Admin: 06/09/18 13:33 Dose: 1.25 mg Metoprolol Tartrate (Lopressor) 50 mg PO Q12H [facility] Last Admin: 05/30/18 01:30 Dose: 50 mg Ondansetron HCl (Zofran Inj) 4 mg IVP Q6H PRN PRN Reason: Nausea/Vomiting Oxychlorosene Sodium (Clorpactin Wcs-90) 2 gm TOP DAILY [facility] Last Admin: 06/09/18 10:05 Dose: Not Given Pantoprazole Sodium (Protonix Inj) 40 mg IV Q12H [facility] Last Admin: 06/09/18 02:05 Dose: 40 mg Simethicone (Mylicon Chew Tab) 80 mg PO HS PRN PRN Reason: GI distress Last Admin: 05/31/18 09:48 Dose: 80 mg - Labs Labs: 06/09/18 05:30 06/09/18 05:30 PT 48.1 SECONDS (9.4-12.5) H 06/09/18 05:30 INR 4.26 H* 06/09/18 05:30 APTT 53.3 Seconds (26.9-38.3) H 06/09/18 05:30 - Constitutional Appears: Toxic, In Acute Distress - Extremities Exam Additional comments: VASC: non-palpable pedal pulses noted bilaterally, capillary filling time is delayed X 9, and absent on the left second digit DERM: there is gangrene of the entire left second digit, with an open wound at the base of the left second MTPJ, no purulence at this time from the wound, h owever, there is serosanguinous fluid draining, there are gangrenous changes to the medial aspect of the 3rd digit, and bluish discoloration to the first as well, slight discoloration noted to the entire forefoot indicating likely ischemia Assessment and Plan - Assessment and Plan (Free Text) Assessment: 67 year old female with left second digit gangrene with accompanying abscess seen, patient impending ischemia of the entire left forefoot Plan: Patient was seen and evaluated Plan was discussed with Dr. Kim Wound was flushed with clorpactin solution and dressed with betadine, DSD Podiatry will continue local wound care <Gil Kim - Last Filed: 06/10/18 10:16> Objective - Vital Signs/Intake and Output Vital Signs (last 24 hours): Temp Pulse Resp BP Pulse Ox 97.9 F 90 19 95/36 L 93 L 06/09/18 18:00 06/09/18 18:00 06/09/18 18:00 06/09/18 18:00 06/09/18 18:00 Intake and Output: 06/10/18 06/10/18 06:59 18:59 Intake Total 75 Balance 75 - Labs Labs: 06/09/18 05:30 06/09/18 05:30 PT 48.1 SECONDS (9.4-12.5) H 06/09/18 05:30 INR 4.26 H* 06/09/18 05:30 APTT 53.3 Seconds (26.9-38.3) H 06/09/18 05:30 Attending/Attestation - Attestation I have personally seen and examined this patient.: Yes I have fully participated in the care of the patient.: Yes I have reviewed all pertinent clinical information, including history, physical exam and plan: Yes
--- NOTE | 2018-06-09 15:04 | PN ---
DATE: 06/09/2018 SUBJECTIVE: The patient is 67 years old, remain intubated, has gasping breath and looks pale, on pressors. Family by the bedside. PHYSICAL EXAMINATION: VITAL SIGNS: She has temperature of 91.6, pulse 78, respiration 20, and blood pressure 114/43. LUNGS: Bilateral poor respiratory effort. HEART: S1 and S2 audible. ABDOMEN: Status post laparotomy, wound is dressed. EXTREMITIES: Bilateral leg, +2 edema. LABORATORY DATA: WBC is 28.1, hemoglobin 7, hematocrit 22.8, and platelet 110. PT is 48.1 and INR 4.26. Chemistry; sodium 148, potassium 5.4, chloride 114, CO2 of 13, BUN 91, creatinine 3.2, and blood sugar 172. ASSESSMENT: 1. Respiratory failure, on ventilation. 2. Anemia. 3. Chronic atrial fibrillation. 4. Sepsis. 5. Hypothermia. 6. Status post laparotomy for small bowel obstruction. 7. Acute on chronic renal failure. 8. Insulin-dependent diabetes. PLAN: Prognosis is poor. Family is by the bedside. ICU attending. Discussed prognosis with the patient, family, son who made her DNR. They want medical treatment, but no CPR in case she has any heart arrhythmias. Jason Laws MD
--- NOTE | 2018-06-09 15:18 | PN ---
DATE: 06/09/2018 SUBJECTIVE: The patient is seen lying in bed in the CCU. She remains intubated and is severely acidotic despite IV pressors and multiple sodium bicarbonate boluses and sodium bicarbonate infusion. MEDICATIONS: Her current medications include DuoNeb inhalers, IV Levaquin, norepinephrine at 20 mcg per minute, meropenem, sodium bicarbonate infusion, IV vancomycin, vasopressin at 0.03 units per minute, and Xopenex. OBJECTIVE: GENERAL: She is an overweight middle-aged woman who appears critically ill. VITAL SIGNS: Blood pressure 114/40 with pulse of 70, in atrial fibrillation; respirations are 22. NECK: She is hypothermic with a temperature 91.6 rectally. HEENT: She is orally intubated. CHEST: Bilateral coarse rhonchi heard. HEART: PMI distant sounds with systolic murmur at the left sternal border. ABDOMEN: Soft. No bowel sounds are heard. EXTREMITIES: 2+ edema, left foot is dressed. LABORATORY DATA: Potassium 5.4, sodium 148, BUN and creatinine 91 and 3.2, bicarbonate is 13. White count 28.1, hemoglobin 7, hematocrit 22.8 with a platelet count 110,000. INR is 4.26 with a PT of 48 and PTT of 53. Arterial blood gas was 6.94, pCO2 of 45 and pO2 of 56 on 100% FiO2 and 12 of PEEP. AST and ALT are 2150 and 291 respectively. Bilirubin is 8.4. Intake and output 2500 and 40 respectively. IMPRESSION: 1. Profound septic shock with severe metabolic acidosis and multiple metabolic derangements including probable hemolytic anemia, shock liver, thrombocytopenia and severe coagulopathy. 2. Peripheral vascular disease, status post recent percutaneous intervention. 3. Gangrenous, left toe. 4. [id number]-mt-yazyvax renal failure, now oliguric 5. Respiratory failure. RECOMMENDATIONS: Comfort care should be provided at this time. A DNR/DNI order has been instituted by her family. Her overall prognosis is extremely grim. Supportive measures should continue for now and aggressive attempts to correct her acidosis should proceed. We will follow along as needed Mauro Dowell MD
[2018-06-09 15:52] LABS: ARTERIAL BLOOD GAS HCO3 7.3 mmol/L (21-28); ARTERIAL BLOOD GAS O2 SAT 99.7 % (95-98); ARTERIAL BLOOD GAS PCO2 41 mm/Hg (35-45); ARTERIAL BLOOD GAS PH 6.86 (7.35-7.45); ARTERIAL BLOOD GAS TCO2 8.6 mmol.L (22-28)
[2018-06-09] MEDS ORDERED: Dextrose 50% SYRINGE Inj (50 ml) IVP ONE (16:10)
[2018-06-09] MEDS ORDERED: Dextrose 50% SYRINGE Inj (50 ml) ONE (16:12)
[2018-06-09 18:31] VITALS: RESP 19
[2018-06-09 18:34] VITALS: BP 95/36; PULSE 90; TEMP 97.9; O2SAT 93
--- NOTE | 2018-06-09 22:05 | CP.PCM.PRO ---
<John Naylor - Last Filed: 06/09/18 22:04> Pronouncement of Note - Clinical Findings Physical Exam: No Response Verbal/Painful Stimuli, Absent Peripheral Pulses{Carotid & Femoral}, Absent Heart & Breath Sounds, No Pupillary Light Reflex, No Corneal Reflex, Pupils Fixed & Dilated, Absence of Vital Signs - Pronouncement Time Time of Pronouncement of : 21:53 - Notifications Pronouncement Notifications: Family Notified, Atending Notified Pharmacy Aide Notified: No - Autopsy Autopsy Requested: No - [place] [id number] <James Ochoa - Last Filed: 06/10/18 19:11> Attending/Attestation - Attestation I have personally seen and examined this patient.: No I have fully participated in the care of the patient.: No I have reviewed all pertinent clinical information: No
[2018-06-10] MEDS ORDERED: levoFLOXacin 500 mg in D5W 500 MG/100 ML BAG IVPB SCH (09:00)
--- NOTE | 2018-06-11 02:56 | DS ---
HISTORY OF PRESENT ILLNESS: Patient was 67 years old, who was admitted for left second toe gangrene. Patient underwent angioplasty, had atherectomy and angioplasty done. Patient went into congestive heart failure. She started to do well. Then, she developed partial small bowel obstruction and ventral hernia, underwent laparotomy and partial small bowel resection along with ventral hernia repair and had jejunocecal anastomosis done. Postprocedure, patient went into respiratory distress again. She was intubated. She went into septic shock. She was hypotensive. She was given Levophed and dopamine, but the patient's condition continued to deteriorate. Patient's family was reached out, they made her DNR and so patient 9 o'clock on 06/09. Since she was DNR, she was not resuscitated. DISCHARGE DIAGNOSES: 1. Respiratory failure. 2. Septic shock. 3. Status post partial small bowel resection. 4. Hypertension. 5. Insulin dependant diabetes. 6. Chronic obstructive pulmonary disease. Jason Laws MD
--- NOTE | 2018-06-18 10:56 | OP ---
PROCEDURE DATE: 06/02/2018 PREOPERATIVE DIAGNOSIS: Infarction secondary to hernia. POSTOPERATIVE DIAGNOSIS: Infarction secondary to hernia. OPERATION PERFORMED: Laparotomy with incarcerated infarcted ventral hernia. SURGEON: Basil Morrell MD DESCRIPTION OF PROCEDURE: In the operating room, the patient was critically ill, but her abdominal exam had changed and clearly is at risk. She understands and accepts. In the operating room, the patient was identified by name, name of procedure, laterality, and my varun, the consent form. Reviewing the CAT scan, the operation was planned. An up and down incision was used and the abdomen entered. The entire hernia sac was massive on either side and that was dissected down to a wide base. Hemostasis was achieved. The large areas were packed and the hernia sac entered. There were multiple hernias within the hernia. Inferiorly on the right side, there was an infarcted bowel. Lysis was achieved circumferentially. The cecum was identified. The appendix was removed as it was flopping in the breeze taken with Harmonic followed by TA-30. The abdomen was irrigated. There was no contamination. The fascia was cleaned circumferentially. Small bowel was then divided with the LigaSure, lined up, and it was found that the distal loop of bowel was right up on the cecum. The distal ileum was lined up and that XIAO was fired to the cecum and the small bowel. The anastomosis was completed with a TA. The wound was copiously irrigated and dried. There was no contamination, but there was infarcted bowel. There were some other loops of bowel that had some serosal ischemia, they warmed up nicely. Alejandro was placed in the abdomen. We elected not to place mesh and the fascia was closed with #1 Novafil far-near, near-far Raoul Nicole type suture. There was no tension. The abdomen having been closed after reinspection, there was nothing else and the bowel looked good as was the anastomosis. The subcutaneous drain was placed. The incision was closed with Vicryl followed by dm with mattress stitches on the skin. Light pressure dressings were applied. The patient was taken to recovery room in good condition with sponge and needle counts were declared correct. Basil Morrell MD
== END 2018-06-09 21:53 | DRG 270 ==
LOC: ED 15:41 → ERH 18:51 → 5RNO 22:09 → ICU 05-27 18:34 → 2RNO 05-30 02:59 → CCU 06-02 16:03 → 2RNO 06-02 16:05 → ICU 06-02 18:21
PROVIDERS: ADMIT Internal Medicine; ATTEND Internal Medicine
PROC: 04CL3ZZ Extirpation of Matter from Left Femoral Artery, Percutaneous Approach (ICD-10-PCS; 2018-05-27)
PROC: 04CN3ZZ Extirpation of Matter from Left Popliteal Artery, Percutaneous Approach (ICD-10-PCS; 2018-05-27)
PROC: 04CQ3ZZ Extirpation of Matter from Left Anterior Tibial Artery, Percutaneous Approach (ICD-10-PCS; 2018-05-27)
PROC: 047L3Z1 Dilation of Left Femoral Artery using Drug-Coated Balloon, Percutaneous Approach (ICD-10-PCS; 2018-05-27)
PROC: 047N3Z1 Dilation of Left Popliteal Artery using Drug-Coated Balloon, Percutaneous Approach (ICD-10-PCS; 2018-05-27)
PROC: 047Q3Z1 Dilation of Left Anterior Tibial Artery using Drug-Coated Balloon, Percutaneous Approach (ICD-10-PCS; 2018-05-27)
PROC: 0WQF0ZZ Repair Abdominal Wall, Open Approach (ICD-10-PCS; 2018-06-02)
PROC: 0DBH0ZZ Excision of Cecum, Open Approach (ICD-10-PCS; 2018-06-02)
PROC: 0DTJ0ZZ Resection of Appendix, Open Approach (ICD-10-PCS; 2018-06-02)
PROC: 0DB80ZZ Excision of Small Intestine, Open Approach (ICD-10-PCS; principal; 2018-06-02 12:50)
PROC: 05HN33Z Insertion of Infusion Device into Left Internal Jugular Vein, Percutaneous Approach (ICD-10-PCS; 2018-06-08)
PROC: B544ZZA Ultrasonography of Left Jugular Veins, Guidance (ICD-10-PCS; 2018-06-08)
PROC: 0BH18EZ Insertion of Endotracheal Airway into Trachea, Via Natural or Artificial Opening Endoscopic (ICD-10-PCS; 2018-06-08)
PROC: 5A1945Z Respiratory Ventilation, 24-96 Consecutive Hours (ICD-10-PCS; 2018-06-08)
DX: E11.52 Type 2 diabetes mellitus with diabetic peripheral angiopathy with gangrene (principal); I50.43 Acute on chronic combined systolic (congestive) and diastolic (congestive) heart failure; J96.01 Acute respiratory failure with hypoxia; J69.0 Pneumonitis due to inhalation of food and vomit; J96.02 Acute respiratory failure with hypercapnia; K55.069 Acute infarction of intestine, part and extent unspecified; K72.00 Acute and subacute hepatic failure without coma; K76.7 Hepatorenal syndrome; A41.9 Sepsis, unspecified organism; R65.21 Severe sepsis with septic shock; I13.0 Hypertensive heart and chronic kidney disease with heart failure and stage 1 through stage 4 chronic kidney disease, or unspecified chronic kidney disease; I16.1 Hypertensive emergency; J44.1 Chronic obstructive pulmonary disease with (acute) exacerbation; K43.0 Incisional hernia with obstruction, without gangrene; K56.600 Partial intestinal obstruction, unspecified as to cause; K56.7 Ileus, unspecified; K91.89 Other postprocedural complications and disorders of digestive system; N17.9 Acute kidney failure, unspecified; D58.9 Hereditary hemolytic anemia, unspecified; D68.9 Coagulation defect, unspecified; E87.2 Acidosis; I69.354 Hemiplegia and hemiparesis following cerebral infarction affecting left non-dominant side; Z99.11 Dependence on respirator [ventilator] status; M86.172 Other acute osteomyelitis, left ankle and foot; L03.116 Cellulitis of left lower limb; L03.115 Cellulitis of right lower limb; E11.59 Type 2 diabetes mellitus with other circulatory complications; E11.65 Type 2 diabetes mellitus with hyperglycemia; E11.40 Type 2 diabetes mellitus with diabetic neuropathy, unspecified; E11.69 Type 2 diabetes mellitus with other specified complication; E11.22 Type 2 diabetes mellitus with diabetic chronic kidney disease; I08.1 Rheumatic disorders of both mitral and tricuspid valves; I25.10 Atherosclerotic heart disease of native coronary artery without angina pectoris; I48.2 Chronic atrial fibrillation; K59.03 Drug induced constipation; K80.20 Calculus of gallbladder without cholecystitis without obstruction; N14.1 Nephropathy induced by other drugs, medicaments and biological substances; N18.3 Chronic kidney disease, stage 3 (moderate); D50.9 Iron deficiency anemia, unspecified; D69.6 Thrombocytopenia, unspecified; E11.21 Type 2 diabetes mellitus with diabetic nephropathy; E78.5 Hyperlipidemia, unspecified; E83.39 Other disorders of phosphorus metabolism; E87.5 Hyperkalemia; T40.605A Adverse effect of unspecified narcotics, initial encounter; T50.8X5A Adverse effect of diagnostic agents, initial encounter; Y95 Nosocomial condition; Z66 Do not resuscitate; Z79.01 Long term (current) use of anticoagulants; Z79.4 Long term (current) use of insulin; Z79.82 Long term (current) use of aspirin; Z79.899 Other long term (current) drug therapy; Z87.440 Personal history of urinary (tract) infections; Z87.891 Personal history of nicotine dependence; Z88.0 Allergy status to penicillin; Z90.49 Acquired absence of other specified parts of digestive tract; Z91.19 Patient's noncompliance with other medical treatment and regimen; Z95.5 Presence of coronary angioplasty implant and graft; Z88.5 Allergy status to narcotic agent; Z88.8 Allergy status to other drugs, medicaments and biological substances; Z91.018 Allergy to other foods